=== PATIENT | male | born 1940 | race Caucasian/White ===

== ENCOUNTER 2019-10-10 12:56 | Outpatient (RCR) | payer MEDICARE, SELFPAY ==
[2019-10-14 19:41] LABS: PSA, Free <0.01 ng/mL; PSA, Total <0.1 ng/mL (<=4.0)
== END 2020-01-08 23:59 | disposition home or self-care (01) ==
LOC: ANHLAB 12:56
PROVIDERS: PCP Internal Medicine; Visit Provider Internal Medicine
DX: Z12.5 Encounter for screening for malignant neoplasm of prostate (principal)
CPT/HCPCS: 36415; 84153; 84154; G0103

== ENCOUNTER 2019-12-31 13:22 | Outpatient (CLI) | payer MEDICARE, SELFPAY ==
--- NOTE | ~2019-12-31 | XR_ITS ---
XR hip BI 2V w AP pelvis DATE: 12/31/2019 13:57 INDICATION: Low back pain, bilateral hip pain, greater on the right TECHNIQUE: AP pelvis, bilateral hip AP and lateral views COMPARISON: None FINDINGS: Status post posterior and interbody spinal fusion at L4-S1. There is moderately severe degenerative disc disease at L3-4. There is moderately severe bilateral hip osteoarthritis. No pelvic fracture or bone destruction. The pubic symphysis and and sacroiliac joints are intact. IMPRESSION: Status post L4-S1 surgical fusion Moderately severe bilateral hip osteoarthritis Reviewed, dictated and finalized at location B. AL DEVELOPER
== END 2019-12-31 13:23 | disposition home or self-care (01) ==
LOC: ANHIMG 13:24
PROVIDERS: PCP Internal Medicine; Visit Provider Internal Medicine
DX: M16.0 Bilateral primary osteoarthritis of hip (principal); M25.551 Pain in right hip; Z98.1 Arthrodesis status
CPT/HCPCS: 73521

== ENCOUNTER 2020-06-16 14:33 | Outpatient (CLI) | payer MEDICARE, SELFPAY ==
[2020-06-16 15:10] LABS: Hemoglobin A1C 5.1 % (<5.7)
[2020-06-16 15:15] LABS: Alanine Aminotransferase 28 U/L (4-50); Albumin Level 4.3 g/dL (3.5-5.1); Alkaline Phosphatase 62 U/L (38-126); Aspartate Amino Transferase 34 U/L (17-59); Basophils Percent Auto 0.5 % (0.2-1.2); Bilirubin,Total 0.4 mg/dL (0.2-1.3); Blood Urea Nitrogen 10 mg/dL (9-20); Calcium 9.4 mg/dL (8.4-10.2); Carbon Dioxide 29 mmol/L (22-30); Chloride 99 mmol/L (98-107); Cholesterol 189 mg/dL (0-200); Eosinophils Absolute Auto 0.2 K/mm3 (0-0.3); Eosinophils Percent Auto 2.4 % (0-4.4); Estimated Glomerular Filt Rate > 60; Glucose 92 mg/dL (75-110); HDL Direct 84 mg/dL; Hematocrit 43.7 % (42.0-52.0); Hemoglobin 14.6 g/dL (14.0-18.0); Immature Granulocyte Absolute 0.02 K/mm3 (0.00-0.031); Immature Granulocyte Percent A 0.3 % (0-0.5); Lymphocytes Percent Auto 17.3 % (18.3-44.2); Mean Corpuscular HGB Conc 33.4 g/dl (32-36); Mean Corpuscular Hemoglobin 31.5 pg (26-34); Mean Corpuscular Volume 94.2 fl (80-100); Monocytes Absolute Auto 0.6 K/mm3 (0.1-0.6); Monocytes Percent Auto 9.3 % (2.6-8.5); Neutrophils Absolute Auto 4.5 K/mm3 (1.3-6.7); Neutrophils Percent Auto 70.2 % (45.5-73.1); Platelet Count Result 249 k/mm3 (150-375); Potassium 4.1 mmol/L (3.4-5.0); Red Blood Count 4.64 M/mm3 (4.6-6.20); Red Cell Distribution Width 13.2 % (11.5-14.5); Sodium 133 mmol/L (137-145); Triglycerides 97 mg/dL (<150); White Blood Count 6.4 K/mm3 (4.5-10.0)
[2020-06-16 15:26] LABS: LDL Cholesterol Direct 85 mg/dL
[2020-06-16 15:53] LABS: Vitamin D 25 Hydroxy 38.3 ng/mL
[2020-06-16 16:24] LABS: Folic Acid > 20.0 ng/mL (2.76->20); Vitamin B12 > 1000.0 pg/mL (239-931)
== END 2020-06-16 14:34 | disposition home or self-care (01) ==
LOC: ANHLAB 14:40
PROVIDERS: PCP Internal Medicine; Visit Provider Internal Medicine
DX: E78.2 Mixed hyperlipidemia (principal); I10 Essential (primary) hypertension; Z79.899 Other long term (current) drug therapy; E55.9 Vitamin D deficiency, unspecified
CPT/HCPCS: 36415; 80053; 80061; 82306; 82607; 82746; 83036; 84443; 85025

== ENCOUNTER 2022-02-21 13:44 | Outpatient (CLI) | payer MEDICARE, SELFPAY ==
[2022-02-21 14:08] LABS: Basophils Percent Auto 0.6 % (0.2-1.2); Eosinophils Absolute Auto 0.4 K/mm3 (0-0.3); Eosinophils Percent Auto 5.6 % (0-4.4); Hematocrit 43.9 % (42.0-52.0); Hemoglobin 14.3 g/dL (14.0-18.0); Immature Granulocyte Absolute 0.03 K/mm3 (0.00-0.031); Immature Granulocyte Percent A 0.4 % (0-0.5); Lymphocytes Absolute Auto 1.48 K/mm3 (0.9-3.2); Lymphocytes Percent Auto 21.7 % (18.3-44.2); Mean Corpuscular HGB Conc 32.6 g/dl (32-36); Mean Corpuscular Hemoglobin 32.3 pg (26-34); Mean Corpuscular Volume 99.1 fl (80-100); Mean Platelet Volume 9.8 fl (7.4-10.4); Monocytes Absolute Auto 0.8 K/mm3 (0.1-0.6); Monocytes Percent Auto 11.3 % (2.6-8.5); Neutrophils Absolute Auto 4.1 K/mm3 (1.3-6.7); Neutrophils Percent Auto 60.4 % (45.5-73.1); Platelet Count Result 239 k/mm3 (150-375); Red Blood Count 4.43 M/mm3 (4.6-6.20); Red Cell Distribution Width 13.3 % (11.5-14.5); White Blood Count 6.8 K/mm3 (4.5-10.0)
[2022-02-21 14:26] LABS: Alanine Aminotransferase 27 U/L (4-50); Albumin Level 4.5 g/dL (3.5-5.1); Alkaline Phosphatase 58 U/L (38-126); Anion Gap 6 mmol/L (8-16); Aspartate Amino Transferase 36 U/L (17-59); Bilirubin,Total 0.5 mg/dL (0.2-1.3); Blood Urea Nitrogen 11 mg/dL (9-20); Calcium 9.3 mg/dL (8.4-10.2); Carbon Dioxide 30 mmol/L (22-30); Chloride 99 mmol/L (98-107); Cholesterol 208 mg/dL (0-200); Estimated Glomerular Filt Rate > 60; Glucose 83 mg/dL (65-110); HDL Direct 91 mg/dL; Potassium 4.1 mmol/L (3.4-5.0); Sodium 135 mmol/L (137-145); Triglycerides 94 mg/dL (<150)
[2022-02-21 14:38] LABS: LDL Cholesterol Direct 80 mg/dL
[2022-02-21 14:57] LABS: Prostate Specific Antigen < 0.1 ng/mL (< OR = 4.0)
== END 2022-02-21 13:45 | disposition home or self-care (01) ==
LOC: ANHLAB 13:49
PROVIDERS: PCP Internal Medicine; Visit Provider Internal Medicine
DX: I47.1 Supraventricular tachycardia (principal); I49.5 Sick sinus syndrome; E78.2 Mixed hyperlipidemia; Z12.5 Encounter for screening for malignant neoplasm of prostate
CPT/HCPCS: 36415; 80053; 80061; 84153; 84443; 85025; G0103

== ENCOUNTER 2022-03-18 13:25 | Outpatient (CLI) | payer MEDICARE, SELFPAY ==
--- NOTE | 2022-03-18 13:40 | ECHO_ITS ---
Patient Info Name: Dinesh Saha Age: 81 years : 1940 Gender: Male Ht: 68 in Wt: 167 lbs BSA: 1.92 m2 HR: 78 bpm BP: 151 / 78 mmHg Heart Rhythm: Paced Technical Quality: Good Exam Date: 03/18/2022 1:58 PM Exam Location: [facility] Patient Status: Outpatient Admit Date: 03/18/2022 Staff Ordering Physician: Rodrick Rincon MD Process Engineering Technician: Dory Tellez RDCS Attending Provider: Rodrick Rincon MD Exam Type: CA echo doppler color flow Study Info Indications - nonrheumatic aortic valve stenosis Complete two-dimensional, color flow and Doppler transthoracic echocardiogram is performed. Summary 1. Complete two-dimensional, color flow and Doppler transthoracic echocardiogram is performed. 2. Left ventricular chamber dimension is normal. 3. Left ventricular systolic function is normal, estimated at 65-70%. 4. There is mildly increased left ventricular wall thickness. 5. Left ventricular septal wall motion is abnormal with septal motion related to pacing. 6. Right atrial chamber dimension is moderately enlarged. 7. There is no aortic valve stenosis. 8. There is trace mitral valve regurgitation. 9. There is trace tricuspid valve regurgitation. 10. No pulmonary hypertension, estimated pulmonary arterial systolic pressure is 33 mmHg. 11. Atrial septal aneurysmal motion without cough or Doppler evidence of right to left shunt. Consider bubble study for further evaluation. Left Ventricle Left ventricular chamber dimension is normal. Left ventricular systolic function is normal, estimated at 65-70%. There is mildly increased left ventricular wall thickness. Left ventricular septal wall motion is abnormal with septal motion related to pacing. The left ventricular diastolic function is grade I diastolic dysfunction. Right Ventricle Right ventricular chamber dimension is normal. Right ventricular systolic function is normal. Linear artifact in right ventricle suggestive of catheter(s), pacemaker lead(s), or ICD lead(s). Left Atria Left atrial chamber dimension is mildly enlarged. Right Atria Right atrial chamber dimension is moderately enlarged. Linear artifact in the right atrium suggestive of catheter(s), pacemaker lead(s), or ICD lead(s). Atrial Septum Atrial septal aneurysmal motion without cough or Doppler evidence of right to left shunt. Consider bubble study for further evaluation. Aortic Valve The aortic valve is not well visualized. There is mild aortic valve sclerosis. There is no aortic valve stenosis. There is trace aortic valve regurgitation. Pulmonic Valve The pulmonic valve is not well visualized. Mitral Valve The mitral valve has normal leaflets. There is trace mitral valve regurgitation. The mitral valve annulus is mildly calcified. Tricuspid Valve The tricuspid valve leaflets are normal. There is trace tricuspid valve regurgitation. No pulmonary hypertension, estimated pulmonary arterial systolic pressure is 33 mmHg. Pericardium/Pleural The pericardium appears normal. There is trivial pericardial effusion. Inferior Vena Cava Normal inferior vena cava with >50% collapse upon inspiration consistent with normal right atrial pressure, 10 mmHg. Aorta The aortic root size at the sinus of Valsalva is normal. There is moderate aortic atherosclerosis. Left Ventricular Outflow Tract Name Value Norm
== END 2022-03-18 13:26 | disposition home or self-care (01) ==
LOC: ANHCARD 13:28
PROVIDERS: PCP Internal Medicine; Visit Provider Internal Medicine
DX: I35.0 Nonrheumatic aortic (valve) stenosis (principal)
CPT/HCPCS: 93306

== ENCOUNTER 2022-05-02 12:21 | Outpatient (CLI) | payer MEDICARE, SELFPAY ==
[2022-05-02 13:28] LABS: Appearance Urine Clear (Clear); Bilirubin Urine Negative (Negative); Color Urine Yellow (Yellow); Glucose Urine UA Negative (Negative); Ketones Urine Trace mg/dL (Negative); Leukocyte Esterase Ur Negative LEU/UL (Negative); Nitrate Urine Negative (Negative); Protein Urine 1+ mg/dL (Negative); Urobilinogen Urine 0.2 mg/dL (<2.0); pH Urine 6.5 (5.0-9.0)
[2022-05-02 13:30] LABS: Add Urine Microscopic? YES; Blood Urine Trace-Intact (Negative)
[2022-05-02 13:38] LABS: Mucus Urine Rare /lpf; WBC Urine 0-3 /hpf
== END 2022-05-02 12:22 | disposition home or self-care (01) ==
LOC: ANHLAB 12:21
PROVIDERS: PCP Internal Medicine; Visit Provider Internal Medicine
DX: R82.4 Acetonuria (principal)
CPT/HCPCS: 81001

== ENCOUNTER 2022-07-25 01:41 | Day surgery (SDC) | payer MEDICARE, SELFPAY ==
[2022-07-08 14:59] VITALS: BMI 25.5
[2022-07-25 11:17] VITALS: BP 141/70; PULSE 84; RESP 20; TEMP 36.6; O2SAT 97; BMI 25.4
--- NOTE | 2022-07-25 11:18 | WPDANESEPPF ---
Anes - Initial Pre Proc Eval Procedure: Operation Date: 07/25/22 12:30 Proposed Procedures p Colonoscopy - Olvin Gloria MD Date/Time: 07/25/22 11:19 Surgeon: Olvin Gloria MD Pre Op Diagnosis: crohn's disease Patient Data Age: 82 Gender: M Height: 1.73 m Weight: 76.3 kg Allergies Allergy/AdvReac Type Severity Reaction Status Date / Time No Known Drug Allergies Allergy Unknown Unknown Verified 07/25/22 11:14 Home Medications Medication Instructions Recorded Confirmed Type aspirin 81 mg tablet,delayed 81 mg PO DAILY 12/17/19 07/08/22 History release (Adult Low Dose Aspirin) hcdqfcn-jfkdadfcxvsru-vgtutvny 250 1 tablet PO Q4-6H PRN pain #1 12/17/19 07/08/22 Rx mg-250 mg-65 mg tablet (Excedrin tablet Extra Strength) biotin 5,000 mcg disintegrating 10,000 mcg PO DAILY 12/17/19 07/08/22 History tablet coenzyme Q10 100 mg capsule (Co 100 mg PO DAILY 12/17/19 07/08/22 History Q-10) cyanocobalamin (vitamin B-12) 5,000 mcg PO DAILY 12/17/19 07/08/22 History 5,000 mcg capsule docusate sodium 100 mg capsule 100 mg PO DAILY 12/17/19 07/08/22 History (Colace) folic acid 400 mcg tablet 0.4 mg PO DAILY 12/17/19 07/08/22 History oufsgmuw-ctjriidezsa-jkct 1 applic topical DAILY 12/17/19 07/08/22 History tree-stearyl alcohol topical cream (Cetaphil Hand topical cream) hydrochlorothiazide 25 mg tablet 25 mg PO DAILY 12/17/19 07/08/22 History lisinopril 40 mg tablet 40 mg PO DAILY 12/17/19 07/08/22 History melatonin 5 mg capsule 5 mg PO DAILY 12/17/19 07/08/22 History multivitamin 1 tablet PO DAILY 12/17/19 07/08/22 History omega-3 fatty acids 1,000 mg 1,000 mg PO DAILY 12/17/19 07/08/22 History capsule (Fish Oil Concentrate) ondansetron HCl 4 mg tablet 4 mg PO Q8H 12/17/19 07/08/22 History turmeric root extract 500 mg 500 mg PO DAILY 12/17/19 07/08/22 History capsule ustekinumab 90 mg/mL subcutaneous 90 mg subcut ONCE 12/17/19 07/08/22 History syringe (Stelara) amlodipine 5 mg tablet 5 mg PO DAILY #90 tabs 12/20/21 07/08/22 Rx ustekinumab 90 mg/mL subcutaneous 90 mg subcut .every 8 weeks #1 mL 06/23/22 07/08/22 Rx syringe (Stelara) clonazepam 0.5 mg tablet (Klonopin) 0.5 mg PO QHS PRN insomnia 07/08/22 07/08/22 History atorvastatin 20 mg tablet See Rx Instructions .Route 07/18/22 07/25/22 Rx .COMPLEX #90 tabs Patient hx anesthesia problems: none Family hx anesthesia problems: none Results Review: All pre-operative results and documents have been reviewed as part of the pre-operative evaluation. [facility] Past Medical History Medical History (Updated 07/25/22 @ 11:22 by Yash Khanna MD) Crohn's disease without complication Essential hypertension History of prostate cancer Hx of adenomatous colonic polyps Mixed hyperlipidemia Nasal polyps Nicotine dependence, other tobacco product, in remission Osteoarthritis of spine with radiculopathy, lumbar region Overweight (BMI 25.0-29.9) Pacemaker Prostate cancer Surgical History Surgical History History of cataract extraction History of prostatectomy History of spinal fusion Family History Family History Mother Family history of Alzheimer's disease Father Family history of osteoporosis Malignant neoplasm of prostate Social History Social History Years smoked: 40 Smoking status: Former smoker Tobacco type: pipe Smoking end date: 12/05/18 Alcohol intake: current Substance use: never Substance use type: does not use Living arrangements: with family Anes - Eval Final PreProcedure Day of Procedure 07/25/22 11:19 Patient weight: overweight Heart: regular rate and rhythm Lungs: clear to auscultation and normal air movement Airway: Mallampati scale class II Neurological: alert and oriented Last oral intake: >/= 8 hours ASA cl
[2022-07-25] MEDS: LACTATED RINGERS 1,000 ML 150 ML IV CONT (11:26)
--- NOTE | 2022-07-25 11:50 | PM.HPGS ---
History of Present Illness History of Present Illness Consent: Risks, benefits, and alternatives have been discussed and questions answered. Patient agrees to proceed with procedure. Chief complaint: crohn's disease Narrative: Dinesh Saha is a 82 year old male who has a 20+ year history of Crohn's disease. He has been on Stelara for the last 5 years with very good results. He has had no blood in his stools does not have abdominal pain or diarrhea. Review of Systems Review of Systems: All systems reviewed & are unremarkable except as noted in HPI and below PMFSH Past Medical History Medical History Crohn's disease without complication Essential hypertension History of prostate cancer Hx of adenomatous colonic polyps Mixed hyperlipidemia Nasal polyps Nicotine dependence, other tobacco product, in remission Osteoarthritis of spine with radiculopathy, lumbar region Overweight (BMI 25.0-29.9) Pacemaker Prostate cancer Surgical History Surgical History History of cataract extraction History of prostatectomy History of spinal fusion Family History Family History Mother Family history of Alzheimer's disease Father Family history of osteoporosis Malignant neoplasm of prostate Social History Social History Years smoked: 40 Smoking status: Former smoker Tobacco type: pipe Smoking end date: 12/05/18 Alcohol intake: current Substance use: never Substance use type: does not use Living arrangements: with family Meds Home Medications and Allergies Home Medications Medication Instructions Recorded Confirmed Type aspirin 81 mg tablet,delayed 81 mg PO DAILY 12/17/19 07/08/22 History release (Adult Low Dose Aspirin) yugbkoa-dkcewcjflnjsw-yhotnybk 250 1 tablet PO Q4-6H PRN pain #1 12/17/19 07/08/22 Rx mg-250 mg-65 mg tablet (Excedrin tablet Extra Strength) biotin 5,000 mcg disintegrating 10,000 mcg PO DAILY 12/17/19 07/08/22 History tablet coenzyme Q10 100 mg capsule (Co 100 mg PO DAILY 12/17/19 07/08/22 History Q-10) cyanocobalamin (vitamin B-12) 5,000 mcg PO DAILY 12/17/19 07/08/22 History 5,000 mcg capsule docusate sodium 100 mg capsule 100 mg PO DAILY 12/17/19 07/08/22 History (Colace) folic acid 400 mcg tablet 0.4 mg PO DAILY 12/17/19 07/08/22 History kixujenf-qwectwvjxok-jstl 1 applic topical DAILY 12/17/19 07/08/22 History tree-stearyl alcohol topical cream (Cetaphil Hand topical cream) hydrochlorothiazide 25 mg tablet 25 mg PO DAILY 12/17/19 07/08/22 History lisinopril 40 mg tablet 40 mg PO DAILY 12/17/19 07/08/22 History melatonin 5 mg capsule 5 mg PO DAILY 12/17/19 07/08/22 History multivitamin 1 tablet PO DAILY 12/17/19 07/08/22 History omega-3 fatty acids 1,000 mg 1,000 mg PO DAILY 12/17/19 07/08/22 History capsule (Fish Oil Concentrate) ondansetron HCl 4 mg tablet 4 mg PO Q8H 12/17/19 07/08/22 History turmeric root extract 500 mg 500 mg PO DAILY 12/17/19 07/08/22 History capsule ustekinumab 90 mg/mL subcutaneous 90 mg subcut ONCE 12/17/19 07/08/22 History syringe (Stelara) amlodipine 5 mg tablet 5 mg PO DAILY #90 tabs 12/20/21 07/08/22 Rx ustekinumab 90 mg/mL subcutaneous 90 mg subcut .every 8 weeks #1 mL 06/23/22 07/08/22 Rx syringe (Stelara) clonazepam 0.5 mg tablet (Klonopin) 0.5 mg PO QHS PRN insomnia 07/08/22 07/08/22 History atorvastatin 20 mg tablet See Rx Instructions .Route 07/18/22 07/25/22 Rx .COMPLEX #90 tabs Allergies Allergy/AdvReac Type Severity Reaction Status Date / Time No Known Drug Allergies Allergy Unknown Unknown Verified 07/25/22 11:14 Vital Signs Vital Signs - 24 hr 07/25/22 11:17 Temperature 36.6 C Pulse Rate 84 Respiratory Rate 20 Blood Pressure 141/70 H Pulse Oximetry 97 Oxygen Del
[2022-07-25 12:35] VITALS: BP 88/52; PULSE 60; RESP 15; O2SAT 95
[2022-07-25 12:45] VITALS: BP 88/52; PULSE 60; RESP 14; O2SAT 94
[2022-07-25 12:55] VITALS: BP 119/74; PULSE 60; RESP 18; O2SAT 97
== END 2022-07-25 13:20 | disposition home or self-care (01) ==
PROVIDERS: PCP Internal Medicine; Visit Provider Internal Medicine Gastroenterology
PROC: 0DJD8ZZ Inspection of Lower Intestinal Tract, Via Natural or Artificial Opening Endoscopic (ICD-10-PCS; CPT 45378; principal; 2022-07-25 12:30)
DX: K50.90 Crohn's disease, unspecified, without complications (principal); K63.5 Polyp of colon; I10 Essential (primary) hypertension; Z85.46 Personal history of malignant neoplasm of prostate; E78.2 Mixed hyperlipidemia; M19.90 Unspecified osteoarthritis, unspecified site; Z95.0 Presence of cardiac pacemaker; Z87.891 Personal history of nicotine dependence; Z79.82 Long term (current) use of aspirin
CPT/HCPCS: 45380; 88305; J2704; J7120

== ENCOUNTER 2022-12-19 08:58 | Outpatient (CLI) | payer MEDICARE, SELFPAY ==
[2022-12-19 10:22] LABS: Alanine Aminotransferase 31 U/L (6-50); Albumin Level 4.1 g/dL (3.5-5.1); Alkaline Phosphatase 68 U/L (38-126); Anion Gap 5 mmol/L (8-16); Aspartate Amino Transferase 37 U/L (17-59); Bilirubin,Total 0.5 mg/dL (0.2-1.3); Blood Urea Nitrogen 10 mg/dL (9-20); Calcium 9.2 mg/dL (8.4-10.2); Carbon Dioxide 31 mmol/L (22-30); Chloride 98 mmol/L (98-107); Cholesterol 189 mg/dL (0-200); Estimated Glomerular Filt Rate > 60; Glucose 88 mg/dL (65-110); HDL Direct 85 mg/dL; Potassium 3.7 mmol/L (3.4-5.0); Sodium 134 mmol/L (137-145); Triglycerides 106 mg/dL (<150)
[2022-12-19 10:35] LABS: LDL Cholesterol Direct 68 mg/dL
[2022-12-19 10:59] LABS: Prostate Specific Antigen < 0.1 ng/mL (< OR = 4.0)
[2022-12-19 11:02] LABS: Vitamin D 25 Hydroxy 33.1 ng/mL
[2022-12-24 12:01] LABS: Testosterone Total 664 ng/dL (250-1100)
== END 2022-12-19 08:59 | disposition home or self-care (01) ==
PROVIDERS: PCP Internal Medicine; Visit Provider Nurse Practitioner
DX: E78.5 Hyperlipidemia, unspecified (principal); Z85.46 Personal history of malignant neoplasm of prostate; Z12.5 Encounter for screening for malignant neoplasm of prostate; E55.9 Vitamin D deficiency, unspecified
CPT/HCPCS: 36415; 80053; 80061; 82306; 84153; 84403

== ENCOUNTER 2023-04-09 20:17 | Emergency (ER) | payer MEDICARE, SELFPAY ==
[2023-04-09 20:22] VITALS: BP 148/72; PULSE 101; RESP 18; TEMP 36.8; O2SAT 98
--- NOTE | 2023-04-09 20:36 | PC.NURSE ---
Patient states he was cutting salad greens when he cut his left index finger.
[2023-04-09] MEDS: CELLULOSE OXIDIZED 2 x 14 INCH 1 PKT XX (21:08)
--- NOTE | 2023-04-09 21:28 | ED.WOUNDLAC ---
HPI - Wound/Laceration General Chief Complaint: Wound/Laceration Stated Complaint: left index lac Time Seen by Provider: 04/09/23 20:40 History of Present Illness HPI narrative: This is an 82-year-old male, with past history of Crohn's, prostate cancer, who presents to the emergency department after cutting his left index finger. The patient states he was slicing vegetables, when he cut a small piece of his left dorsal index finger. He denies significant pain but states it has been bleeding for approximately 3 hours. He denies lightheadedness or chest pain Related Data Home Medications Medication Instructions Recorded Confirmed biotin 5,000 mcg disintegrating 10,000 mcg PO DAILY 12/17/19 10/17/22 tablet coenzyme Q10 100 mg capsule (Co 100 mg PO DAILY 12/17/19 10/17/22 Q-10) cyanocobalamin (vitamin B-12) 5,000 mcg PO DAILY 12/17/19 10/17/22 5,000 mcg capsule folic acid 400 mcg tablet 0.4 mg PO DAILY 12/17/19 10/17/22 qbkzvupm-smcrhntwudj-kcqj 1 applic topical DAILY 12/17/19 10/17/22 tree-stearyl alcohol topical cream (Cetaphil Hand topical cream) hydrochlorothiazide 25 mg tablet 25 mg PO DAILY 12/17/19 10/17/22 lisinopril 40 mg tablet 40 mg PO DAILY 12/17/19 10/17/22 melatonin 5 mg capsule 5 mg PO DAILY 12/17/19 10/17/22 multivitamin 1 tablet PO DAILY 12/17/19 10/17/22 omega-3 fatty acids 1,000 mg 1,000 mg PO DAILY 12/17/19 10/17/22 capsule (Fish Oil Concentrate) turmeric root extract 500 mg 500 mg PO DAILY 12/17/19 10/17/22 capsule clonazepam 0.5 mg tablet (Klonopin) 0.5 mg PO QHS PRN insomnia 07/08/22 10/17/22 docusate sodium 100 mg capsule 100 mg PO DAILY PRN 10/14/22 10/17/22 (Colace) ondansetron HCl 4 mg tablet 4 mg PO Q8H PRN 10/14/22 10/17/22 Allergies Allergy/AdvReac Type Severity Reaction Status Date / Time No Known Drug Allergies Allergy Unknown Unknown Verified 04/09/23 20:25 Review of Systems Review of Systems: CONSTITUTIONAL: Denies fever, chills, or sweats. CARDIOVASCULAR: Denies chest pain, palpitations, or edema. RESPIRATORY: Denies cough or dyspnea. GASTROINTESTINAL: Denies abdominal pain, nausea, vomiting, or diarrhea. MUSCULOSKELETAL: Denies back pain, joint pain, or myalgia. PSYCHIATRIC: Denies anxiety or depression. PMFSH Past Medical History Medical History Crohn's disease without complication Essential hypertension History of prostate cancer Hx of adenomatous colonic polyps Mixed hyperlipidemia Nasal polyps Nicotine dependence, other tobacco product, in remission Osteoarthritis of spine with radiculopathy, lumbar region Overweight (BMI 25.0-29.9) Pacemaker Prostate cancer Surgical History Surgical History History of cataract extraction History of prostatectomy History of spinal fusion Family History Family History Mother Family history of Alzheimer's disease Father Family history of osteoporosis Malignant neoplasm of prostate Social History Social History Years smoked: 40 Smoking status: Former smoker Tobacco type: pipe Smoking end date: 12/05/18 Alcohol intake: current Alcohol use details: rarely Substance use: never Substance use type: does not use Lack of Transportation: No Lack of Food: Never True Current Housing: I Have Housing Concerned About Future Housing: No Difficulty Paying Gas/Electric Bills: No Difficulty Paying for Meds: No Currently Unemployed: No Education: Master's Degree or Higher Difficulty w/ Childcare or Family Care: No Living arrangements: with family Exam Narrative: GENERAL: Well-developed, well-nourished, and in no acute distress. HEAD: Normocephalic, atraumatic. EYES: PERRLA and EOMI. CHEST: Clear to auscultation. No respiratory distress. No wheezes rales
[2023-04-09 21:58] VITALS: BP 128/98; PULSE 92; RESP 16; O2SAT 100
== END 2023-04-09 21:59 | disposition home or self-care (01) ==
PROVIDERS: Emergency Provider Preventive Medicine Aerospace Medicine; PCP Family Medicine
DX: S61.211A Laceration without foreign body of left index finger without damage to nail, initial encounter (principal); K50.90 Crohn's disease, unspecified, without complications; I10 Essential (primary) hypertension; E78.2 Mixed hyperlipidemia; E66.3 Overweight; Z68.23 Body mass index [BMI] 23.0-23.9, adult; Z95.0 Presence of cardiac pacemaker; Z85.46 Personal history of malignant neoplasm of prostate; Z86.010 Personal history of colon polyps; Z87.891 Personal history of nicotine dependence; W26.9XXA Contact with unspecified sharp object(s), initial encounter; Y93.G1 Activity, food preparation and clean up
CPT/HCPCS: 99282

== ENCOUNTER 2023-06-08 10:38 | Outpatient (CLI) | payer MEDICARE, SELFPAY ==
--- NOTE | ~2023-06-08 | XR_ITS ---
EXAMINATION: XR lg joint inject/asp add, XR lg joint inject/asp w image DATE: 06/08/2023 11:52 (accession [id number]), 06/08/2023 11:56 (accession [id number]) INDICATION: Primary osteoarthritis of the bilateral hips presenting with hip pain TECHNIQUE: A time-out was performed to verify the patient's name, date of , and procedure to b e performed. The procedure including the risks, benefits, and alternatives was discussed with the pat ient. Risks discussed included bleeding and infection. The patient understood the risks and agreed to proceed. The skin overlying the right hip joint was prepped and draped in usual sterile fashion. A nesthetic was administered with 1% lidocaine subcutaneously. A 22 G needle was advanced under fluoro scopic guidance into the joint. Injection of 1 mL of Omnipaque 240 confirmed intra-articular positio n of the needle. Subsequently, injectate consisting of 5 mL of a 4:1 mixture of 1% lidocaine: 80 mg/ mL Depo-Medrol for a total dosage of 80 mg Depo-Medrol was instilled. Washout of contrast was seen co nfirming intra-articular administration. The needle was removed and the entry site was cleaned and dr essed. Attention was then turned to the left hip. The skin overlying the right hip joint was prepped and kimmie ped in usual sterile fashion. Anesthetic was administered with 1% lidocaine subcutaneously. A 22 G needle was advanced under fluoroscopic guidance into the joint. Injection of 1 mL of Omnipaque 240 c onfirmed intra-articular position of the needle. Subsequently, injectate consisting of 5 mL of a 4:1 mixture of 1% lidocaine: 80 mg/mL Depo-Medrol for a total dosage of 80 mg Depo-Medrol was instilled. Washout of contrast was seen confirming intra-articular administration. The needle was removed and t he entry site was cleaned and dressed. There were no immediate complications. Fluoroscopy exposure ti me for the combined procedures was 0.1 minutes. Total DAP was 0.503 Gycm^2. The total number of image s was 3. FINDINGS: Real-time fluoroscopy demonstrates the needle in first the right hip joint and subsequently the second needle in the left hip joint. Patient's pain prior to procedure:02/03. Patient's pain fol lowing the procedure: 02/03. IMPRESSION: 1. Successful right hip joint injection of local anesthetic and steroid with no change in the patien t's presenting pain. 2. Successful left hip joint injection of local anesthetic and steroid with no change in the patient 's presenting pain. Reviewed, dictated and finalized at location A. IMPRESSION: 1. Successful right hip joint injection of local anesthetic and steroid with n o change in the patient's presenting pain. 2. Successful left hip joint injection of local anesthetic and steroid with no change in the patient's presenting pain.
== END 2023-06-08 10:39 | disposition home or self-care (01) ==
PROVIDERS: PCP Family Medicine; Visit Provider Orthopaedic Surgery
DX: M16.0 Bilateral primary osteoarthritis of hip (principal)
CPT/HCPCS: 20610; 77002; J1040; Q9966

== ENCOUNTER 2023-08-08 13:33 | Outpatient (CLI) | payer MEDICARE, SELFPAY ==
--- NOTE | ~2023-08-08 | XR_ITS ---
EXAMINATION: XR chest 2V 08/08/2023 13:54 INDICATION: Pacemaker. PROCEDURE: PA and lateral views of the chest COMPARISON: 10/03/2027 FINDINGS: The lungs are clear. The cardiomediastinal silhouette is within normal limits. There are no pleural effusions. There is no pneumothorax suspected. Pacemaker leads are in expected position. IMPRESSION: 1: NO ACUTE CARDIOPULMONARY DISEASE. Reviewed, dictated and finalized at location L.
== END 2023-08-08 13:34 | disposition home or self-care (01) ==
PROVIDERS: PCP Family Medicine; Visit Provider Internal Medicine Cardiovascular Disease
DX: I44.2 Atrioventricular block, complete (principal); T82.110D Breakdown (mechanical) of cardiac electrode, subsequent encounter; Z95.0 Presence of cardiac pacemaker
CPT/HCPCS: 71046

== ENCOUNTER 2023-09-03 02:43 | Emergency (ER) | payer MEDICARE, SELFPAY ==
[2023-09-03] VITALS (9 sets, daily range): BP systolic 137–186; BP diastolic 74–86; PULSE 69–79; RESP 18–20; TEMP 36.8; O2SAT 97–100
--- NOTE | ~2023-09-03 | XR_ITS ---
XR chest 1V portable DATE: 09/03/2023 03:14 INDICATION: Hypertension TECHNIQUE: Portable AP chest on 09/03/2023 and 0312 hours COMPARISON: 08/08/2020 3:00 PM lateral chest FINDINGS: . Left transvenous pacemaker device with leads overlying right atrium and right ventricle. No pulmonary infiltrate or consolidation, pleural effusion or pulmonary vascular congestion or pneumo thorax. There is aortic tortuosity. No hilar or mediastinal enlargement. Degenerative spurring of the thoracic spine. IMPRESSION: Left dual-lead pacemaker No active pulmonary disease Reviewed, dictated and finalized at location A.
--- NOTE | 2023-09-03 02:53 | ECG_ITS ---
Measurements Intervals [place] Rate: 68 P: 5 KS: 251 QRS: -82 QRSD: 200 T: 95 QT: 481 QTc: 515 Interpretive Statements ATRIAL SENSE ELECTRONIC VENTRICULAR PACEMAKER ATYPICAL ECG COMPARED TO ECG 01/14/2019 13:12:35 NO SIGNIFICANT CHANGES Electronically Signed On 09-03-2023 8:51:48 CDT by Ruperto Trejo M.D.
[2023-09-03] MEDS: hydrALAZINE HCL 20 MG/ML VIAL 10 MG IV PUSH (03:01)
[2023-09-03 03:11] LABS: Basophils Percent Auto 0.5 % (0.2-1.2); Eosinophils Absolute Auto 0.2 K/mm3 (0-0.3); Eosinophils Percent Auto 2.8 % (0-4.4); Hematocrit 41.6 % (42.0-52.0); Hemoglobin 13.7 g/dL (14.0-18.0); Immature Granulocyte Absolute 0.03 K/mm3 (0.00-0.031); Immature Granulocyte Percent A 0.5 % (0-0.5); Lymphocytes Absolute Auto 1.31 K/mm3 (0.9-3.2); Lymphocytes Percent Auto 20.7 % (18.3-44.2); Mean Corpuscular HGB Conc 32.9 g/dl (32-36); Mean Corpuscular Hemoglobin 32.1 pg (26-34); Mean Corpuscular Volume 97.4 fl (80-100); Mean Platelet Volume 9.6 fl (7.4-10.4); Monocytes Absolute Auto 0.6 K/mm3 (0.1-0.6); Monocytes Percent Auto 9.8 % (2.6-8.5); Neutrophils Absolute Auto 4.2 K/mm3 (1.3-6.7); Neutrophils Percent Auto 65.7 % (45.5-73.1); Platelet Count Result 268 k/mm3 (150-375); Red Blood Count 4.27 M/mm3 (4.6-6.20); Red Cell Distribution Width 12.9 % (11.5-14.5); White Blood Count 6.3 K/mm3 (4.5-10.0)
[2023-09-03 03:34] LABS: Alanine Aminotransferase 32 U/L (6-50); Albumin Level 4.6 g/dL (3.5-5.1); Alkaline Phosphatase 62 U/L (38-126); Anion Gap 4 mmol/L (8-16); Aspartate Amino Transferase 46 U/L (17-59); Bilirubin,Total 0.6 mg/dL (0.2-1.3); Blood Urea Nitrogen 15 mg/dL (9-20); Calcium 9.3 mg/dL (8.4-10.2); Carbon Dioxide 30 mmol/L (22-30); Chloride 96 mmol/L (98-107); Estimated CRCL calculation 71 ml/min; Estimated Glomerular Filt Rate > 60; Glucose 106 mg/dL (65-110); Potassium 3.9 mmol/L (3.4-5.0); Sodium 130 mmol/L (137-145)
--- NOTE | 2023-09-03 03:43 | ED.GENADULT ---
HPI - General Adult General Chief complaint: Recheck/Abnormal Lab/Rx Stated complaint: high blood pressure Time Seen by Provider: 09/03/23 02:47 History of Present Illness HPI narrative: 83-year-old male presented emergency department for evaluation of hypertension. Patient does take multiple medications for his blood pressure. Patient states he checked his blood pressure at home and it was running 200 systolic. Patient states this does cause him to have some increased anxiety. Patient did take clonazepam for his anxiety. Upon arrival to the ED patient's blood pressure is improved. Patient denied any associated chest pain or shortness of breath. Related Data Home Medications Medication Instructions Recorded Confirmed biotin 5,000 mcg disintegrating 10,000 mcg PO DAILY 12/17/19 06/29/23 tablet coenzyme Q10 100 mg capsule (Co 100 mg PO DAILY 12/17/19 06/29/23 Q-10) cyanocobalamin (vitamin B-12) 5,000 mcg PO DAILY 12/17/19 06/29/23 5,000 mcg capsule folic acid 400 mcg tablet 0.4 mg PO DAILY 12/17/19 06/29/23 xrskrnrj-tkvotcuuylb-ewpn 1 applic topical DAILY 12/17/19 06/29/23 tree-stearyl alcohol topical cream (Cetaphil Hand topical cream) hydrochlorothiazide 25 mg tablet 25 mg PO DAILY 12/17/19 06/29/23 lisinopril 40 mg tablet 40 mg PO DAILY 12/17/19 06/29/23 melatonin 5 mg capsule 5 mg PO DAILY 12/17/19 06/29/23 multivitamin 1 tablet PO DAILY 12/17/19 06/29/23 omega-3 fatty acids 1,000 mg 1,000 mg PO DAILY 12/17/19 06/29/23 capsule (Fish Oil Concentrate) turmeric root extract 500 mg 500 mg PO DAILY 12/17/19 06/29/23 capsule docusate sodium 100 mg capsule 100 mg PO DAILY PRN 10/14/22 06/29/23 (Colace) ondansetron HCl 4 mg tablet 4 mg PO Q8H PRN 10/14/22 06/29/23 Allergies Allergy/AdvReac Type Severity Reaction Status Date / Time No Known Drug Allergies Allergy Unknown Unknown Verified 09/03/23 02:54 Review of Systems Review of Systems: All systems reviewed & are unremarkable except as noted in HPI and below PMFSH Past Medical History Medical History Crohn's disease without complication Essential hypertension History of prostate cancer Hx of adenomatous colonic polyps Mixed hyperlipidemia Nasal polyps Nicotine dependence, other tobacco product, in remission Osteoarthritis of spine with radiculopathy, lumbar region Overweight (BMI 25.0-29.9) Pacemaker Prostate cancer Surgical History Surgical History History of cataract extraction History of prostatectomy History of spinal fusion Family History Family History Mother Family history of Alzheimer's disease Father Family history of osteoporosis Malignant neoplasm of prostate Social History Social History Years smoked: 40 Smoking status: Former smoker Tobacco type: pipe Smoking end date: 12/05/18 Alcohol intake: current Alcohol use details: rarely Substance use: never Substance use type: does not use Lack of Transportation: No Lack of Food: Never True Current Housing: I Have Housing Concerned About Future Housing: No Difficulty Paying Gas/Electric Bills: No Difficulty Paying for Meds: No Currently Unemployed: No Education: Master's Degree or Higher Difficulty w/ Childcare or Family Care: No Living arrangements: with family Exam Narrative: APPEARANCE: Well appearing, no pain, no distress, well-nourished. HEAD: normocephalic, atraumatic. EYES: PERRLA/EOMI, conjunctivae clear. NOSE: Normal no drainage NECK: Supple. No adenopathy, no masses. RESPIRATORY: Airway patent, respirations nonlabored. Clear to auscultation bilaterally, no rales, rhonchi, wheezing. CARDIOVASCULAR: Regular rate and rhythm without murmurs rubs or gallops. ABDOMINAL: Soft, nontender, nondistended, normal bowel sounds MUSCU
== END 2023-09-03 04:28 | disposition home or self-care (01) ==
PROVIDERS: Emergency Provider Emergency Medicine; PCP Family Medicine
DX: I10 Essential (primary) hypertension (principal); E78.2 Mixed hyperlipidemia; K50.90 Crohn's disease, unspecified, without complications; M47.816 Spondylosis without myelopathy or radiculopathy, lumbar region; Z95.0 Presence of cardiac pacemaker; Z85.46 Personal history of malignant neoplasm of prostate; Z87.891 Personal history of nicotine dependence; Z98.49 Cataract extraction status, unspecified eye; Z90.79 Acquired absence of other genital organ(s); Z98.1 Arthrodesis status
CPT/HCPCS: 36415; 71045; 80053; 85025; 93005; 96374; 99284; J0360

== ENCOUNTER 2023-10-20 13:29 | Outpatient (CLI) | payer MEDICARE, SELFPAY ==
[2023-10-20 14:11] LABS: Anion Gap 9 mmol/L (8-16); Blood Urea Nitrogen 17 mg/dL (9-20); Calcium 9.8 mg/dL (8.4-10.2); Carbon Dioxide 28 mmol/L (22-30); Chloride 97 mmol/L (98-107); Estimated Glomerular Filt Rate > 60; Glucose 76 mg/dL (65-110); Potassium 3.9 mmol/L (3.4-5.0); Sodium 134 mmol/L (137-145)
[2023-10-20 14:42] LABS: Iron 118 ug/dL (49-181)
[2023-10-20 14:55] LABS: Percent Iron Saturation 35 % (20-50)
== END 2023-10-20 13:30 | disposition home or self-care (01) ==
PROVIDERS: PCP Family Medicine; Visit Provider Family Medicine
DX: D64.9 Anemia, unspecified (principal); E87.1 Hypo-osmolality and hyponatremia
CPT/HCPCS: 36415; 80048; 82728; 83540; 83550

== ENCOUNTER 2023-12-14 14:53 | Outpatient (CLI) | payer MEDICARE, SELFPAY ==
[2023-12-14 15:35] LABS: Basophils Percent Auto 0.3 % (0.2-1.2); Eosinophils Absolute Auto 0.2 K/mm3 (0-0.3); Eosinophils Percent Auto 3.6 % (0-4.4); Hematocrit 44.2 % (42.0-52.0); Hemoglobin 14.3 g/dL (14.0-18.0); Immature Granulocyte Absolute 0.03 K/mm3 (0.00-0.031); Immature Granulocyte Percent A 0.5 % (0-0.5); Lymphocytes Absolute Auto 1.14 K/mm3 (0.9-3.2); Lymphocytes Percent Auto 17.7 % (18.3-44.2); Mean Corpuscular HGB Conc 32.4 g/dl (32-36); Mean Corpuscular Hemoglobin 31.9 pg (26-34); Mean Corpuscular Volume 98.7 fl (80-100); Mean Platelet Volume 9.8 fl (7.4-10.4); Monocytes Absolute Auto 0.6 K/mm3 (0.1-0.6); Monocytes Percent Auto 9.2 % (2.6-8.5); Neutrophils Absolute Auto 4.4 K/mm3 (1.3-6.7); Neutrophils Percent Auto 68.7 % (45.5-73.1); Platelet Count Result 282 k/mm3 (150-375); Red Blood Count 4.48 M/mm3 (4.6-6.20); Red Cell Distribution Width 13.2 % (11.5-14.5); White Blood Count 6.4 K/mm3 (4.5-10.0)
[2023-12-14 16:03] LABS: Alanine Aminotransferase 29 U/L (6-50); Albumin Level 4.6 g/dL (3.5-5.1); Alkaline Phosphatase 78 U/L (38-126); Anion Gap 6 mmol/L (8-16); Aspartate Amino Transferase 43 U/L (17-59); Bilirubin,Total 0.7 mg/dL (0.2-1.3); Blood Urea Nitrogen 12 mg/dL (9-20); Calcium 9.8 mg/dL (8.4-10.2); Carbon Dioxide 32 mmol/L (22-30); Chloride 97 mmol/L (98-107); Estimated Glomerular Filt Rate > 60; Glucose 96 mg/dL (65-110); Potassium 3.8 mmol/L (3.4-5.0); Sodium 135 mmol/L (137-145)
[2023-12-14 16:54] LABS: Vitamin D 25 Hydroxy 35.9 ng/mL
[2023-12-14 16:56] LABS: Prostate Specific Antigen < 0.1 ng/mL (< OR = 4.0)
[2023-12-18 15:29] LABS: Testosterone Free 34.8 pg/mL (30.0-135.0); Testosterone Total 396 ng/dL (250-1100)
== END 2023-12-14 14:54 | disposition home or self-care (01) ==
PROVIDERS: PCP Family Medicine; Visit Provider Family Medicine
DX: C44.91 Basal cell carcinoma of skin, unspecified (principal); E55.9 Vitamin D deficiency, unspecified; E78.2 Mixed hyperlipidemia; G47.00 Insomnia, unspecified; I10 Essential (primary) hypertension; I35.0 Nonrheumatic aortic (valve) stenosis; I49.5 Sick sinus syndrome; K50.90 Crohn's disease, unspecified, without complications; Z85.828 Personal history of other malignant neoplasm of skin; Z95.0 Presence of cardiac pacemaker; Z12.5 Encounter for screening for malignant neoplasm of prostate; Z85.46 Personal history of malignant neoplasm of prostate
CPT/HCPCS: 36415; 80053; 82306; 84153; 84402; 84403; 85025; G0103

== ENCOUNTER 2024-04-25 16:08 | Outpatient (CLI) | payer MEDICARE, SELFPAY ==
[2024-04-25 16:57] LABS: Hematocrit 41.4 % (42.0-52.0); Hemoglobin 13.8 g/dL (14.0-18.0); Mean Corpuscular HGB Conc 33.3 g/dl (32-36); Mean Corpuscular Volume 96.1 fl (80-100); Mean Platelet Volume 9.7 fl (7.4-10.4); Platelet Count Result 266 k/mm3 (150-375); Red Blood Count 4.31 M/mm3 (4.6-6.20); Red Cell Distribution Width 13.2 % (11.5-14.5); White Blood Count 6.8 K/mm3 (4.5-10.0)
[2024-04-25 19:05] LABS: Vitamin D 25 Hydroxy 34.4 ng/mL
[2024-04-25 19:16] LABS: Alanine Aminotransferase 31 U/L (6-50); Albumin Level 4.4 g/dL (3.5-5.1); Alkaline Phosphatase 64 U/L (38-126); Anion Gap 5 mmol/L (4-12); Aspartate Amino Transferase 45 U/L (17-59); Bilirubin,Total 0.5 mg/dL (0.2-1.3); Blood Urea Nitrogen 12 mg/dL (9-20); Calcium 9.8 mg/dL (8.4-10.2); Carbon Dioxide 30 mmol/L (22-30); Chloride 98 mmol/L (98-107); Cholesterol 188 mg/dL (0-200); Estimated Glomerular Filt Rate > 60; Glucose 91 mg/dL (65-110); HDL Direct 96 mg/dL; Sodium 133 mmol/L (137-145); Triglycerides 70 mg/dL (<150)
[2024-04-25 19:28] LABS: LDL Cholesterol Direct 75 mg/dL
[2024-04-25 19:50] LABS: Prostate Specific Antigen < 0.1 ng/mL (< OR = 4.0)
== END 2024-04-25 16:09 | disposition home or self-care (01) ==
PROVIDERS: PCP Family Medicine; Visit Provider Family Medicine
DX: Z12.5 Encounter for screening for malignant neoplasm of prostate (principal); D64.9 Anemia, unspecified; E55.9 Vitamin D deficiency, unspecified; E66.3 Overweight; E78.2 Mixed hyperlipidemia; E87.1 Hypo-osmolality and hyponatremia; G47.00 Insomnia, unspecified; G47.9 Sleep disorder, unspecified; I10 Essential (primary) hypertension; K50.90 Crohn's disease, unspecified, without complications; Z98.890 Other specified postprocedural states; Z95.0 Presence of cardiac pacemaker; Z85.46 Personal history of malignant neoplasm of prostate; Z87.19 Personal history of other diseases of the digestive system
CPT/HCPCS: 36415; 80053; 80061; 82306; 84153; 85027; G0103

== ENCOUNTER 2024-08-16 11:14 | Emergency (ER) | payer MEDICARE, SELFPAY ==
--- NOTE | ~2024-08-16 | CT_ITS ---
EXAMINATION: CT shoulder LT wo con DATE: 08/16/2024 15:46 INDICATION: Left rotator cuff tear. TECHNIQUE: Computed tomography (CT) of the left shoulder was performed without intravenous contrast. Automated exposure control and iterative reconstruction technique were employed. The dose-length prod uct was 461.22 mGy-cm. COMPARISON: None FINDINGS: There is a comminuted avulsion fracture of greater tuberosity of proximal humerus with 3.2 cm medial displacement of the main avulsed fracture fragment. There is mild osteoarthritis of glenohu meral joint and severe osteoarthritis of acromioclavicular joint. IMPRESSION: 1. Avulsion fracture of greater tuberosity of proximal humerus. 2. Polyarticular osteoarthritis. Reviewed, dictated and finalized at location A.
[2024-08-16 11:36] VITALS: BP 102/62; PULSE 75; RESP 16; TEMP 36.3; O2SAT 95
[2024-08-16 14:22] VITALS: BP 132/59; PULSE 69; RESP 18; TEMP 36.2; O2SAT 94
[2024-08-16] MEDS: ACETAMINOPHEN 500 MG TABLET 1000 MG PO (15:47)
--- NOTE | 2024-08-16 15:49 | PC.NURSE ---
patient given education on sling positioning by multiple staff members.
--- NOTE | 2024-08-16 16:14 | ED.UPPEXIN ---
HPI - Extremity Injury (Upper) General Chief Complaint: Extremity Injury, Upper Stated Complaint: left shoulder pain Time Seen by Provider: 08/16/24 15:23 History of Present Illness HPI narrative: 84-year-old male presented to the emergency department for evaluation of left shoulder pain. Patient states he went to urgent care today for concerns of left shoulder pain that began last week after he had a ground level mechanical fall. He states gradually throughout the week he has been having weakness and pain in left upper extremity. He states he is having difficulty lifting it past 90? and over his head secondary to the pain. 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 Did not think much of it after he fell onto at last week but he was able to get up unassisted and go about his day without difficulty. Denies any headache, vision change, nausea, vomiting, chest pain, shortness a breath, abdominal pain, back pain. He went to Urgent Care today which he got x-ray images that were unremarkable according to him they referred him to get a CT scan and sent him here. He already follows with orthopedic surgeon for various musculoskeletal issues and sciatica. Sees Dr. Joselito Varela outpatient. Takes Tylenol for the pain is not requesting anything additional for analgesia at this time. Related Data Home Medications Medication Instructions Recorded Confirmed biotin 5,000 mcg disintegrating 10,000 mcg PO DAILY 12/17/19 08/08/24 tablet coenzyme Q10 100 mg capsule (Co 100 mg PO DAILY 12/17/19 08/08/24 Q-10) cyanocobalamin (vitamin B-12) 5,000 mcg PO DAILY 12/17/19 08/08/24 5,000 mcg capsule folic acid 400 mcg tablet 0.4 mg PO DAILY 12/17/19 08/08/24 hydrochlorothiazide 25 mg tablet 25 mg PO DAILY 12/17/19 08/08/24 lisinopril 40 mg tablet 40 mg PO DAILY 12/17/19 08/08/24 melatonin 5 mg capsule 5 mg PO DAILY 12/17/19 08/08/24 multivitamin 1 tablet PO DAILY 12/17/19 08/08/24 omega-3 fatty acids 1,000 mg 1,000 mg PO DAILY 12/17/19 08/08/24 capsule (Fish Oil Concentrate) docusate sodium 100 mg capsule 100 mg PO DAILY PRN 10/14/22 08/08/24 (Colace) ondansetron HCl 4 mg tablet 4 mg PO Q8H PRN 10/14/22 08/08/24 [id number] 1 applic topical DAILY PRN 05/08/24 08/08/24 tree-stearyl alcohol topical cream (Cetaphil Hand topical cream) trazodone 50 mg tablet 25 mg PO QHS insomnia 05/08/24 08/08/24 Allergies Allergy/AdvReac Type Severity Reaction Status Date / Time No Known Drug Allergies Allergy Unknown Unknown Verified 08/08/24 09:06 Review of Systems Review of Systems: As reviewed above in HPI [facility] Past Medical History Medical History Crohn's disease without complication Essential hypertension History of prostate cancer Hx of adenomatous colonic polyps Mixed hyperlipidemia Nasal polyps Nicotine dependence, other tobacco product, in remission Osteoarthritis of spine with radiculopathy, lumbar region Overweight (BMI 25.0-29.9) Pacemaker Prostate cancer Spinal stenosis of lumbar region at multiple levels Surgical History Surgical History History of cataract extraction History of prostatectomy History of spinal fusion Family History Family History Mother Family history of Alzheimer's disease Father Family history of osteoporosis Malignant neoplasm of prostate Social History Social History Years smoked: 40 Smoking status: Former smoker Tobacco type: pipe Second hand tobacco smoke exposure: Yes Smoking end date: 12/05/18 Alcohol intake: current Alcohol use details: rarely Substance use: never Substance use type: does not use Do You Feel Safe in your Home?: Yes Lack of Transportation: No Lack of Food: Never True
[2024-08-16 17:40] VITALS: BP 137/82; PULSE 78; RESP 17; TEMP 36.6; O2SAT 98
== END 2024-08-16 17:43 | disposition home or self-care (01) ==
PROVIDERS: Emergency Provider Student in an Organized Health Care Education/Training Program; PCP Family Medicine
DX: S42.252A Displaced fracture of greater tuberosity of left humerus, initial encounter for closed fracture (principal); I10 Essential (primary) hypertension; E78.2 Mixed hyperlipidemia; E66.3 Overweight; Z68.24 Body mass index [BMI] 24.0-24.9, adult; K50.90 Crohn's disease, unspecified, without complications; M47.26 Other spondylosis with radiculopathy, lumbar region; M19.012 Primary osteoarthritis, left shoulder; Z98.1 Arthrodesis status; Z95.0 Presence of cardiac pacemaker; Z85.46 Personal history of malignant neoplasm of prostate; Z86.010 Personal history of colon polyps; Z87.891 Personal history of nicotine dependence; Z90.79 Acquired absence of other genital organ(s); Z98.49 Cataract extraction status, unspecified eye; W18.30XA Fall on same level, unspecified, initial encounter
CPT/HCPCS: 23620; 24500; 73200; 99284; A9270

== ENCOUNTER 2024-08-18 18:57 | Emergency (ER) | payer MEDICARE, SELFPAY ==
[2024-08-18] VITALS (20 sets, daily range): BP systolic 108–142; BP diastolic 57–77; PULSE 73–90; RESP 15–22; TEMP 36.6; O2SAT 95–100
--- NOTE | ~2024-08-18 | CT_ITS ---
CT head without contrast Indication: Near syncope Technique: Serial scans were obtained through the brain without the administration of contrast. Dose reduction technique was used on this scan by utilizing automated exposure control and iterative recon struction technique. The dose-length product (DLP) was 681.00 mGy-cm. Findings: There is no evidence of intracranial hemorrhage, mass lesion, or acute infarct. The ventri cles and subarachnoid spaces are dilated, consistent with mild to moderate atrophy. Low attenuation regions are seen within the periventricular white matter bilaterally, likely representing changes fro m chronic microvascular ischemic disease. There is no evidence of edema, mass effect or midline shif t. The visualized paranasal sinuses and mastoid air cells are clear. Impression: No intracranial hemorrhage, mass, or acute infarct. Atrophy and chronic white matter changes, as above. Reviewed, dictated and finalized at location M. Impression: No intracranial hemorrhage, mass, or acute infarct. Atrophy and chronic white matter changes, as above.
--- NOTE | ~2024-08-18 | XR_ITS ---
XR chest 1V DATE: 08/18/2024 21:43 INDICATION: Near syncope TECHNIQUE: AP chest COMPARISON: 09/03/2023 portable upright AP chest FINDINGS: Left dual-lead pacemaker with leads overlying right atrium and right lateral. Borderline heart size. Aortic unfolding. No hilar or mediastinal enlargement. Relatively sparse lung markings in the upper lungs suggests bullous emphysema. No pulmonary infiltrate or consolidation, pleural effusion or pulmonary vascular congestion or pneumo thorax is detected. 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
--- NOTE | ~2024-08-18 | XR_ITS ---
XR shoulder LT min 2V DATE: 08/18/2024 21:43 INDICATION: Left shoulder injury TECHNIQUE: 3 views COMPARISON: 08/08/2023 PA chest FINDINGS: There is a cortical avulsion fracture of the greater tuberosity which is displaced superior ly, partially overlying the superior aspect of the humeral head. Normal alignment at the acromioclavicular and glenohumeral joints. IMPRESSION: Superiorly displaced cortical avulsion fracture of the greater tuberosity Reviewed, dictated and finalized at location A. IMPRESSION: Superiorly displaced cortical avulsion fracture of the greater tube rosity
[2024-08-18] MEDS: SODIUM CHLORIDE 0.9% IV 1,000 ML 999 ML IV CONT (21:29)
--- NOTE | 2024-08-18 21:34 | PC.NURSE ---
Left arm splint removed per ZAYNAB Zarate. Splint removed, patient tolerated well. Patient has bruising noted to inner left upper arm.
--- NOTE | 2024-08-18 21:36 | PC.NURSE ---
Patient taken to imaging at this time via stretcher.
[2024-08-18 21:38] LABS: Basophils Percent Auto 0.2 % (0.2-1.2); Eosinophils Percent Auto 0.3 % (0-4.4); Hematocrit 39.9 % (42.0-52.0); Immature Granulocyte Absolute 0.09 K/mm3 (0.00-0.031); Immature Granulocyte Percent A 0.7 % (0-0.5); Lymphocytes Absolute Auto 0.51 K/mm3 (0.9-3.2); Mean Corpuscular HGB Conc 35.1 g/dl (32-36); Mean Corpuscular Hemoglobin 32.9 pg (26-34); Mean Corpuscular Volume 93.9 fl (80-100); Monocytes Absolute Auto 0.9 K/mm3 (0.1-0.6); Monocytes Percent Auto 7.3 % (2.6-8.5); Neutrophils Absolute Auto 11.3 K/mm3 (1.3-6.7); Neutrophils Percent Auto 87.5 % (45.5-73.1); Platelet Count Result 339 k/mm3 (150-375); Red Blood Count 4.25 M/mm3 (4.6-6.20); Red Cell Distribution Width 13.1 % (11.5-14.5); White Blood Count 12.9 K/mm3 (4.5-10.0)
[2024-08-18 21:45] LABS: Add Urine Microscopic? YES; Appearance Urine Clear (Clear); Bacteria Urine None Seen /hpf; Bilirubin Urine Negative (Negative); Blood Urine 1+ (Negative); Color Urine Yellow (Yellow); Glucose Urine UA Negative (Negative); Ketones Urine Trace mg/dL (Negative); Leukocyte Esterase Ur Negative LEU/UL (Negative); Nitrate Urine Negative (Negative); Protein Urine 1+ mg/dL (Negative); RBC Urine 21-50 /hpf (0-2); Specific Grav Ur 1.021 (1.001-1.035); Squamous Epithelial Cell Urine None Seen /hpf (Few); WBC Urine 0-5 /hpf (0-3); pH Urine 6.5 (5.0-9.0)
[2024-08-18 21:49] LABS: Lactic Acid Reflex 0.9 mmol/L (0.7-2.0)
[2024-08-18 21:49] LABS: Partial Thromboplastin Time 33.8 Seconds (22.3-36.8); Prothrombin Time 13.2 Seconds (11.1-14.7)
[2024-08-18 21:52] LABS: Alanine Aminotransferase 43 U/L (6-50); Albumin Level 4.1 g/dL (3.5-5.1); Alkaline Phosphatase 87 U/L (38-126); Anion Gap 9 mmol/L (4-12); Aspartate Amino Transferase 60 U/L (17-59); Bilirubin,Total 0.6 mg/dL (0.2-1.3); Blood Urea Nitrogen 17 mg/dL (9-20); Calcium 9.2 mg/dL (8.4-10.2); Carbon Dioxide 24 mmol/L (22-30); Chloride 91 mmol/L (98-107); Estimated CRCL calculation 72 ml/min; Estimated Glomerular Filt Rate > 60; Glucose 115 mg/dL (65-110); Potassium 4.2 mmol/L (3.4-5.0); Sodium 124 mmol/L (137-145)
[2024-08-18 22:03] LABS: Troponin I 0.018 ng/mL (0.000-0.034)
[2024-08-18 22:11] LABS: Procalcitonin 0.1 ng/mL
[2024-08-19] VITALS (8 sets, daily range): BP systolic 162–175; BP diastolic 79–83; PULSE 74–85; RESP 17–28; O2SAT 96–100
--- NOTE | 2024-08-19 00:44 | ED.GENADULT ---
HPI - General Adult General Chief complaint: Fall Stated complaint: FALL, UNSTEADY GAIT Time Seen by Provider: 08/18/24 20:56 History of Present Illness HPI narrative: Patient is a 84-year-old gentleman presents emergency department with chief complaint of multiple falls. Patient states that he has been having some problems with his gait and balance of the patient did have a fall recently and had a chip in his humerus patient was placed in a splint at that time the patient reports today he had a ground level fall reports that he has been scheduled to follow-up with orthopedics Related Data Home Medications Medication Instructions Recorded Confirmed biotin 5,000 mcg disintegrating 10,000 mcg PO DAILY 12/17/19 08/08/24 tablet coenzyme Q10 100 mg capsule (Co 100 mg PO DAILY 12/17/19 08/08/24 Q-10) cyanocobalamin (vitamin B-12) 5,000 mcg PO DAILY 12/17/19 08/08/24 5,000 mcg capsule folic acid 400 mcg tablet 0.4 mg PO DAILY 12/17/19 08/08/24 hydrochlorothiazide 25 mg tablet 25 mg PO DAILY 12/17/19 08/08/24 lisinopril 40 mg tablet 40 mg PO DAILY 12/17/19 08/08/24 melatonin 5 mg capsule 5 mg PO DAILY 12/17/19 08/08/24 multivitamin 1 tablet PO DAILY 12/17/19 08/08/24 omega-3 fatty acids 1,000 mg 1,000 mg PO DAILY 12/17/19 08/08/24 capsule (Fish Oil Concentrate) docusate sodium 100 mg capsule 100 mg PO DAILY PRN 10/14/22 08/08/24 (Colace) ondansetron HCl 4 mg tablet 4 mg PO Q8H PRN 10/14/22 08/08/24 sejwejws-qosgoiomogg-[id number] 1 applic topical DAILY PRN 05/08/24 08/08/24 tree-stearyl alcohol topical cream (Cetaphil Hand topical cream) trazodone 50 mg tablet 25 mg PO QHS insomnia 05/08/24 08/08/24 Allergies Allergy/AdvReac Type Severity Reaction Status Date / Time No Known Drug Allergies Allergy Unknown Unknown Verified 08/18/24 19:45 Review of Systems Review of Systems: A 10 system review of systems was completed on the patient and is negative except for what is stated in the HPI. Nursing and ancillary documentation was reviewed. REPLACED BY [facility] Past Medical History Medical History Crohn's disease without complication Essential hypertension History of prostate cancer Hx of adenomatous colonic polyps Mixed hyperlipidemia Nasal polyps Nicotine dependence, other tobacco product, in remission Osteoarthritis of spine with radiculopathy, lumbar region Overweight (BMI 25.0-29.9) Pacemaker Prostate cancer Spinal stenosis of lumbar region at multiple levels Surgical History Surgical History History of cataract extraction History of prostatectomy History of spinal fusion Family History Family History Mother Family history of Alzheimer's disease Father Family history of osteoporosis Malignant neoplasm of prostate Social History Social History Years smoked: 40 Smoking status: Former smoker Tobacco type: pipe Second hand tobacco smoke exposure: Yes Smoking end date: 12/05/18 Alcohol intake: current Alcohol use details: rarely Substance use: never Substance use type: does not use Do You Feel Safe in your Home?: Yes Lack of Transportation: No Lack of Food: Never True Current Housing: I Have Housing Concerned About Future Housing: No Difficulty Paying Gas/Electric Bills: No Difficulty Paying for Meds: No Currently Unemployed: No Education: Master's Degree or Higher Difficulty w/ Childcare or Family Care: No Living arrangements: with family Occupation/Education: retired 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 HEAD: Normocephalic, atraumatic. EYES: PERRLA and EOMI.
--- NOTE | 2024-08-19 01:18 | PC.NURSE ---
Patient ambulated in hallway with stand by assist. ERP notified.
== END 2024-08-19 02:23 | disposition home or self-care (01) ==
PROVIDERS: Emergency Provider Emergency Medicine; PCP Family Medicine
DX: S09.90XA Unspecified injury of head, initial encounter (principal); S50.311A Abrasion of right elbow, initial encounter; W18.30XA Fall on same level, unspecified, initial encounter; Z91.81 History of falling; R29.6 Repeated falls; I10 Essential (primary) hypertension; K50.90 Crohn's disease, unspecified, without complications; E78.2 Mixed hyperlipidemia; Z85.46 Personal history of malignant neoplasm of prostate; Z98.1 Arthrodesis status; Z95.0 Presence of cardiac pacemaker; Z87.891 Personal history of nicotine dependence
CPT/HCPCS: 36415; 70450; 71045; 73030; 80053; 81001; 83605; 83735; 84145; 84484; 85025; 85610; 85730; 96360; 99284; J7030

== ENCOUNTER 2024-08-20 03:47 | Emergency (ER) | payer MEDICARE, SELFPAY ==
--- NOTE | ~2024-08-20 | CT_ITS ---
CT head without contrast Indication: Status post fall COMPARISON: 08/18/2024 Technique: Serial scans were obtained through the brain without the administration of contrast. Dose reduction technique was used on this scan by utilizing automated exposure control and iterative recon struction technique. The dose-length product (DLP) was 605.33 mGy-cm. Findings: There is no evidence of intracranial hemorrhage, mass lesion, or acute infarct. The ventri cles and subarachnoid spaces are dilated, consistent with mild to moderate atrophy. Low attenuation regions are seen within the periventricular white matter bilaterally, likely representing changes fro m chronic microvascular ischemic disease. There is no evidence of edema, mass effect or midline shif t. The visualized paranasal sinuses and mastoid air cells are clear. Impression: No intracranial hemorrhage, mass, or acute infarct. Atrophy and chronic white matter changes, as above. Reviewed, dictated and finalized at location . Impression: No intracranial hemorrhage, mass, or acute infarct. Atrophy and chronic white matter changes, as above.
--- NOTE | ~2024-08-20 | CT_ITS ---
Noncontrast CT scan of the cervical spine Technique: Multiple contiguous axial [address] images of the cervical spine were obtained and rec onstructed in 2D sagittal and coronal planes on the acquisition scanner. Dose reduction technique was used on this scan by utilizing automated exposure control, adjustment of the mA and/or kV according to patient size. The dose-length product (DLP) was 418.56 mGy-cm. Clinical History: Pain Findings: No acute fracture. There is 3 mm anterolisthesis of C3 over C4. There is severe degenerativ e disc narrowing at C3-C4, C4-C5, C5-C6, and C6-C7. There is moderate degenerative disc narrowing at C2-C3. There is extensive facet arthropathy throughout the cervical spine, with fusion of the right C 4-C5 facet joint. There is right neural foraminal narrowing at C2-C3. There is bilateral neural adenike inal narrowing at C3-C4 with disc ossify complex resulting in probable moderate canal stenosis. There is bilateral neural foraminal narrowing at C4-C5, probable mild canal stenosis. There is bilateral n eural foraminal narrowing at C5-C6 with probable mild canal stenosis. There is bilateral neural adenike inal narrowing at C6-C7. No prevertebral soft tissue swelling. Impression: No acute fracture. 3 mm anterolisthesis of C3 over C4. Severe degenerative spondylosis, as above. Reviewed, dictated and finalized at [facility]. Impression: No acute fracture. 3 mm anterolisthesis of C3 over C4. Severe degenerative spondylosis, as above.
[2024-08-20 03:47] VITALS: BP 134/76; PULSE 78; RESP 15; TEMP 36.6; O2SAT 94
--- NOTE | 2024-08-20 03:52 | ECG_ITS ---
Test Date: 2024-08-20 03:52:16 Measurements Intervals [place] Rate: 78 P: 33 SD: 258 QRS: 265 QRSD: 193 T: 85 QT: 464 QTc: 529 Interpretive Statements ATRIAL SENSE- ELECTRONIC VENTRICULAR PACEMAKER BASELINE ARTIFACT- I, V1 NO FURTHER INTERPRETATION IS POSSIBLE ATYPICAL ECG No previous ECG available for comparison Electronically Signed On 08-20-2024 06:30:21 CDT by Valentín Kelly D.O.
--- NOTE | 2024-08-20 05:24 | ED.DIZZY ---
HPI - Dizziness General Chief Complaint: Dizziness Stated Complaint: dizzy and fall History of Present Illness HPI Narrative: Patient is an 84-year-old female who presents to the emergency department this morning status post a ground level fall that occurred at home. Patient was recently seen at our facility for a fall and patient admits that he has been falling more recently. Today, patient states that he was getting some ice at of the freezer and accidentally dropped the ice my ground and believes he slipped on the ice. Patient states that he felt dizzy after the fall and admits that he did hit his head. Patient states that the dizziness has resolved. Denies any loss of consciousness and denies any blood thinner use. Patient denies any focal weakness, numbness and tingling. Admits to mild pain at the back of his head, denies any neck pain. Patient states that he does have a walker and a cane at but does not use them even though he understands that he should. Patient denies any chest pain or shortness of breath, any fevers or chills at home and denies any urinary symptoms including dysuria or hematuria. Denies any additional symptoms or concerns at this time. Related Data Home Medications Medication Instructions Recorded Confirmed biotin 5,000 mcg disintegrating 10,000 mcg PO DAILY 12/17/19 08/08/24 tablet coenzyme Q10 100 mg capsule (Co 100 mg PO DAILY 12/17/19 08/08/24 Q-10) cyanocobalamin (vitamin B-12) 5,000 mcg PO DAILY 12/17/19 08/08/24 5,000 mcg capsule folic acid 400 mcg tablet 0.4 mg PO DAILY 12/17/19 08/08/24 hydrochlorothiazide 25 mg tablet 25 mg PO DAILY 12/17/19 08/08/24 lisinopril 40 mg tablet 40 mg PO DAILY 12/17/19 08/08/24 melatonin 5 mg capsule 5 mg PO DAILY 12/17/19 08/08/24 multivitamin 1 tablet PO DAILY 12/17/19 08/08/24 omega-3 fatty acids 1,000 mg 1,000 mg PO DAILY 12/17/19 08/08/24 capsule (Fish Oil Concentrate) docusate sodium 100 mg capsule 100 mg PO DAILY PRN 10/14/22 08/08/24 (Colace) ondansetron HCl 4 mg tablet 4 mg PO Q8H PRN 10/14/22 08/08/24 [id number]-nojnyqedgzi-ilas 1 applic topical DAILY PRN 05/08/24 08/08/24 tree-stearyl alcohol topical cream (Cetaphil Hand topical cream) trazodone 50 mg tablet 25 mg PO QHS insomnia 05/08/24 08/08/24 Allergies Allergy/AdvReac Type Severity Reaction Status Date / Time No Known Drug Allergies Allergy Unknown Unknown Verified 08/20/24 03:55 Review of Systems Review of Systems: All systems are reviewed and are negative unless stated otherwise in the HPI. [facility] Past Medical History Medical History Crohn's disease without complication Essential hypertension History of prostate cancer Hx of adenomatous colonic polyps Mixed hyperlipidemia Nasal polyps Nicotine dependence, other tobacco product, in remission Osteoarthritis of spine with radiculopathy, lumbar region Overweight (BMI 25.0-29.9) Pacemaker Prostate cancer Spinal stenosis of lumbar region at multiple levels Surgical History Surgical History History of cataract extraction History of prostatectomy History of spinal fusion Family History Family History Mother Family history of Alzheimer's disease Father Family history of osteoporosis Malignant neoplasm of prostate Social History Social History Years smoked: 40 Smoking status: Former smoker Tobacco type: pipe Second hand tobacco smoke exposure: Yes Smoking end date: 12/05/18 Alcohol intake: current Alcohol use details: rarely Substance use: never Substance use type: does not use Do You Feel Safe in your Home?: Yes Lack of Transportation: No Lack of Food: Never True Current Housing: I Have Housing Concerned About Future Housing: No Difficulty Paying Gas/Electric B
--- NOTE | 2024-08-20 06:14 | PC.NURSE ---
Attempted to call of patient at [phone] without answer. Message left.
[2024-08-20 06:46] VITALS: BP 122/64; PULSE 79; RESP 15; O2SAT 100
== END 2024-08-20 06:47 ==
PROVIDERS: Emergency Provider Emergency Medicine; PCP Family Medicine
DX: S09.90XA Unspecified injury of head, initial encounter (principal); K50.90 Crohn's disease, unspecified, without complications; I10 Essential (primary) hypertension; Z86.010 Personal history of colon polyps; E78.2 Mixed hyperlipidemia; E66.3 Overweight; Z68.26 Body mass index [BMI] 26.0-26.9, adult; Z98.1 Arthrodesis status; M47.26 Other spondylosis with radiculopathy, lumbar region; Z95.0 Presence of cardiac pacemaker; Z85.46 Personal history of malignant neoplasm of prostate; Z87.891 Personal history of nicotine dependence; Z90.79 Acquired absence of other genital organ(s); Z98.49 Cataract extraction status, unspecified eye; M47.812 Spondylosis without myelopathy or radiculopathy, cervical region; W01.0XXA Fall on same level from slipping, tripping and stumbling without subsequent striking against object, initial encounter
CPT/HCPCS: 70450; 72125; 93005; 99284

== ENCOUNTER 2024-08-25 03:54 | Inpatient (IN) | payer MEDICARE, SELFPAY ==
[2024-08-25] VITALS (15 sets, daily range): BP systolic 106–154; BP diastolic 54–90; PULSE 58–82; RESP 14–18; TEMP 36.4–36.6; O2SAT 94–100; BMI 24.0
--- NOTE | ~2024-08-25 | XR_ITS ---
XR chest 2V 08/25/2024 08:32 Indication: Weakness Procedure: AP and lateral views of the chest Comparison: Comparison to multiple prior studies sequentially, with oldest reviewed study dated 05/2017. Findings: Heart size normal. Pacemaker leads are stable. No focal air space disease, pulmonary edema, pleural effusion or suspected pneumothorax. Impression: 1: No acute cardiopulmonary disease. Reviewed, dictated and finalized at location B. Impression: 1: No acute cardiopulmonary disease.
--- NOTE | ~2024-08-25 | US_ITS ---
EXAMINATION: US venous doppler [facility] DATE: 09/01/2024 09:06 INDICATION: Lower limb swelling TECHNIQUE: Grayscale ultrasound images without and with compression and Doppler ultrasound images of the bilateral lower extremity veins were obtained. COMPARISON: None. FINDINGS: The visualized portions of right common femoral vein, profunda (deep) femoral vein, femoral vein, pop liteal vein, posterior tibial veins, peroneal veins, gastrocnemius vein and greater saphenous vein ou tflow are patent. The visualized portions of left common femoral vein, profunda femoral vein, femoral vein, popliteal v ein, posterior tibial veins, peroneal veins, gastrocnemius vein and greater saphenous vein outflow ar e patent. IMPRESSION: 1. No deep venous thrombosis in either lower limb. Reviewed, dictated and finalized at location A.
--- NOTE | 2024-08-25 08:06 | ECG_ITS ---
Test Date: 2024-08-25 08:12:50 Measurements Intervals [place] Rate: 60 P: 115 RI: 248 QRS: -78 QRSD: 201 T: 95 QT: 503 QTc: 503 Interpretive Statements ELECTRONIC ATRIAL PACEMAKER ELECTRONIC VENTRICULAR PACEMAKER BASELINE ARTIFACT- I, II, AVR NO FURTHER INTERPRETATION IS POSSIBLE ATYPICAL ECG Compared to ECG 08/20/2024 03:52:16 No significant changes Electronically Signed On 08-25-2024 09:15:21 CDT by Valentín Kelly D.O.
--- NOTE | 2024-08-25 08:08 | ED.GENADULT ---
HPI - General Adult General Chief complaint: Weakness Stated complaint: leg weakness, hx of this, possible fall if stands Time Seen by Provider: 08/25/24 08:08 Source: patient History of Present Illness HPI narrative: 84 YEARS OLD WHITE MALE CAME TO THE ED BY AMBULANCE BECAUSE UNABLE TO STAND UP AND WALK IN THE LAST FEW DAYS BECAUSE OF WEAKNESS OF THE LEGS. WORSE WITH ANY ACTIVITIES, BETTER WITH FEELING DOWN STILL, HE DENIES ANY HEADACHE, CHEST PAIN, SHORTNESS OF BREATH, ABDOMINAL PAIN, BACK PAIN, OR FOCAL NEURAL DEFICIT. PATIENT REPORT HAVING SIMILAR SYMPTOMS INTERMITTENTLY FOR THE LAST FEW MONTHS. PATIENT LIVES WITH FAMILY. Related Data Home Medications Medication Instructions Recorded Confirmed biotin 5,000 mcg disintegrating 10,000 mcg PO DAILY 12/17/19 08/08/24 tablet coenzyme Q10 100 mg capsule (Co 100 mg PO DAILY 12/17/19 08/08/24 Q-10) cyanocobalamin (vitamin B-12) 5,000 mcg PO DAILY 12/17/19 08/08/24 5,000 mcg capsule folic acid 400 mcg tablet 0.4 mg PO DAILY 12/17/19 08/08/24 hydrochlorothiazide 25 mg tablet 25 mg PO DAILY 12/17/19 08/08/24 lisinopril 40 mg tablet 40 mg PO DAILY 12/17/19 08/08/24 melatonin 5 mg capsule 5 mg PO DAILY 12/17/19 08/08/24 multivitamin 1 tablet PO DAILY 12/17/19 08/08/24 omega-3 fatty acids 1,000 mg 1,000 mg PO DAILY 12/17/19 08/08/24 capsule (Fish Oil Concentrate) docusate sodium 100 mg capsule 100 mg PO DAILY PRN 10/14/22 08/08/24 (Colace) ondansetron HCl 4 mg tablet 4 mg PO Q8H PRN 10/14/22 08/08/24 [id number]-vlkggeswrzf-shao 1 applic topical DAILY PRN 05/08/24 08/08/24 tree-stearyl alcohol topical cream (Cetaphil Hand topical cream) trazodone 50 mg tablet 25 mg PO QHS insomnia 05/08/24 08/08/24 Allergies Allergy/AdvReac Type Severity Reaction Status Date / Time No Known Drug Allergies Allergy Unknown Unknown Verified 08/20/24 03:55 Review of Systems Review of Systems: All systems reviewed & are unremarkable except as noted in HPI and below PMFSH Past Medical History Medical History Crohn's disease without complication Essential hypertension History of prostate cancer Hx of adenomatous colonic polyps Mixed hyperlipidemia Nasal polyps Nicotine dependence, other tobacco product, in remission Osteoarthritis of spine with radiculopathy, lumbar region Overweight (BMI 25.0-29.9) Pacemaker Prostate cancer Spinal stenosis of lumbar region at multiple levels Surgical History Surgical History History of cataract extraction History of prostatectomy History of spinal fusion Family History Family History Mother Family history of Alzheimer's disease Father Family history of osteoporosis Malignant neoplasm of prostate Social History Social History Years smoked: 40 Smoking status: Former smoker Tobacco type: pipe Second hand tobacco smoke exposure: Yes Smoking end date: 12/05/18 Alcohol intake: current Alcohol use details: rarely Substance use: never Substance use type: does not use Do You Feel Safe in your Home?: Yes Lack of Transportation: No Lack of Food: Never True Current Housing: I Have Housing Concerned About Future Housing: No Difficulty Paying Gas/Electric Bills: No Difficulty Paying for Meds: No Currently Unemployed: No Education: Master's Degree or Higher Difficulty w/ Childcare or Family Care: No Living arrangements: with family Occupation/Education: retired 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
[2024-08-25 08:29] LABS: Basophils Percent Auto 0.2 % (0.2-1.2); Eosinophils Absolute Auto 0.1 K/mm3 (0-0.3); Eosinophils Percent Auto 1.5 % (0-4.4); Hematocrit 40.6 % (42.0-52.0); Hemoglobin 14.1 g/dL (14.0-18.0); Immature Granulocyte Absolute 0.03 K/mm3 (0.00-0.031); Immature Granulocyte Percent A 0.3 % (0-0.5); Lymphocytes Absolute Auto 1.12 K/mm3 (0.9-3.2); Lymphocytes Percent Auto 12.1 % (18.3-44.2); Mean Corpuscular HGB Conc 34.7 g/dl (32-36); Mean Corpuscular Hemoglobin 32.3 pg (26-34); Mean Corpuscular Volume 93.1 fl (80-100); Mean Platelet Volume 8.8 fl (7.4-10.4); Monocytes Absolute Auto 0.8 K/mm3 (0.1-0.6); Monocytes Percent Auto 8.1 % (2.6-8.5); Neutrophils Absolute Auto 7.2 K/mm3 (1.3-6.7); Neutrophils Percent Auto 77.8 % (45.5-73.1); Platelet Count Result 338 k/mm3 (150-375); Red Blood Count 4.36 M/mm3 (4.6-6.20); Red Cell Distribution Width 12.6 % (11.5-14.5); White Blood Count 9.3 K/mm3 (4.5-10.0)
[2024-08-25 08:52] LABS: Alanine Aminotransferase 46 U/L (6-50); Albumin Level 4.3 g/dL (3.5-5.1); Alkaline Phosphatase 102 U/L (38-126); Anion Gap 7 mmol/L (4-12); Aspartate Amino Transferase 51 U/L (17-59); Bilirubin,Total 0.5 mg/dL (0.2-1.3); Blood Urea Nitrogen 14 mg/dL (9-20); Calcium 9.3 mg/dL (8.4-10.2); Carbon Dioxide 30 mmol/L (22-30); Chloride 84 mmol/L (98-107); Estimated CRCL calculation 78 ml/min; Estimated Glomerular Filt Rate > 60; Glucose 97 mg/dL (65-110); Potassium 3.9 mmol/L (3.4-5.0); Sodium 121 mmol/L (137-145)
[2024-08-25 09:13] LABS: Add Urine Microscopic? YES; Appearance Urine Clear (Clear); Bacteria Urine None Seen /hpf; Bilirubin Urine Negative (Negative); Blood Urine 1+ (Negative); Color Urine Yellow (Yellow); Glucose Urine UA Negative (Negative); Ketones Urine Trace mg/dL (Negative); Leukocyte Esterase Ur Negative LEU/UL (Negative); Nitrate Urine Negative (Negative); Non Pathogenic Casts 0-2; Protein Urine Trace mg/dL (Negative); RBC Urine 21-50 /hpf (0-2); Specific Grav Ur 1.014 (1.001-1.035); Squamous Epithelial Cell Urine None Seen /hpf (Few); Urobilinogen Urine 0.2 mg/dL (<2.0); WBC Urine 0-5 /hpf (0-3)
[2024-08-25] MEDS: SODIUM CHLORIDE 0.9% IV 1,000 ML 999 ML IV CONT (11:01)
[2024-08-25 11:11] LABS: Sodium Urine Random 105 meq/L
[2024-08-25] MEDS: SODIUM CHLORIDE 0.9% IV 1,000 ML 60 ML IV CONT (12:57)
--- NOTE | 2024-08-25 13:00 | PM.IMHP ---
H&P: HPI History of Present Illness Date/Time: 08/25/24 13:00 Chief Complaint: Weakness. Narrative: This is an 84-year-old male with chronic hyponatremia, hypertension, hyperlipidemia, aortic stenosis, sick sinus syndrome status post dual chamber pacemaker implantation, and Crohn's disease who presented to the emergency department for evaluation of weakness. The patient provides the following history. He has been increasingly weak and unsteady on his feet the last several weeks and has had several falls. He was seen in the ED on 08/16/2024 with left shoulder pain after fall and was found to have an avulsion fracture of the greater tuberosity of the proximal humerus. He was seen in the ED several days later after another fall with no new injuries and the day after that with another fall. Sodium was 124 at that time which is lower than what he typically runs however he was feeling well enough that he wished to be discharged home with outpatient follow-up. Unfortunately over the last couple of days he has felt increasingly weak to the point where he does not feel as though his legs are strong enough to hold him. He denies focal weakness, paresthesias, vertigo, syncope, near syncope, facial droop, difficulty speaking and swallowing, chest pain, shortness of breath, cold and flu symptoms, nausea, vomiting, and diarrhea. In the ED: He was afebrile on arrival with stable vital signs. Labs were significant for WBC count of 9.3, hemoglobin 14.1, sodium 121, chloride 84, BUN 14, creatinine 0.60, TSH 2.550. Chest x-ray showed no acute cardiopulmonary disease. He received a 1 L normal saline bolus and he is being admitted in this setting for further workup. Review of Systems Review of Systems: 12 systems were reviewed and are negative except for as per HPI. [facility] Past Medical History Medical History (Updated 08/25/24 @ 14:03 by Alexa Jackson PA-C) Adenomatous colon polyp Aortic stenosis Crohn's disease without complication Essential hypertension Mixed hyperlipidemia Nasal polyps Nicotine dependence, other tobacco product, in remission Osteoarthritis of spine with radiculopathy, lumbar region Prostate cancer Sick sinus syndrome (03/05/15) Status post [place] dual chamber permanent pacemaker placement. Spinal stenosis of lumbar region at multiple levels Surgical History Surgical History (Updated 08/25/24 @ 14:03 by Alexa Jackson PA-C) History of cataract extraction History of permanent cardiac pacemaker placement History of prostatectomy History of spinal fusion History of transurethral resection of prostate Family History Family History Mother Family history of Alzheimer's disease Father Family history of osteoporosis Malignant neoplasm of prostate Social History Social History (Updated 08/25/24 @ 13:52 by Alexa Jackson PA-C) Social History: Surrogate medical decision maker: Aliza Eliseer, spouse. Code status: Full code. Years smoked: 40 Smoking status: Never smoker Tobacco type: pipe Second hand tobacco smoke exposure: Yes Smoking end date: 12/05/18 Alcohol intake: never Alcohol use details: rarely Substance use: never Substance use type: does not use Do You Feel Safe in your Home?: Yes Lack of Transportation: No Lack of Food: Never True Current Housing: I Have Housing Concerned About Future Housing: No Difficulty Paying Gas/Electric Bills: No Difficulty Paying for Meds: No Currently Unemployed: No Education: Don't Know Difficulty w/ Childcare or Family Care: No Living arrangements: with family Additional living arrangements comments: Lives with spouse in [place]. 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 Spiritual care concerns: No Meds Home Medications and Allergies Home Medications Medication Instructions Recorded Confirmed Type a
--- NOTE | 2024-08-25 13:16 | ADMGEN ---
This patient, Dinesh Saha, was admitted to Medical Room 344-01. Patient/family oriented to hospital policies and general routines including ID bracelet, bed and alarms, visiting hours, pain management, procedures, bathroom and other care routines, personal items, smoking policy, room service/diet, and visiting hours. Information on how to activate the Rapid Response Team has been discussed. Patient/Family are encouraged to report perceived risks to care and to ask questions if they do not understand what they are told or what they should do.
[2024-08-25 13:28] LABS: Anion Gap 5 mmol/L (4-12); Blood Urea Nitrogen 12 mg/dL (9-20); Calcium 8.7 mg/dL (8.4-10.2); Carbon Dioxide 29 mmol/L (22-30); Chloride 86 mmol/L (98-107); Estimated CRCL calculation 78 ml/min; Estimated Glomerular Filt Rate > 60; Glucose 102 mg/dL (65-110); Potassium 3.8 mmol/L (3.4-5.0); Sodium 120 mmol/L (137-145)
[2024-08-25 14:06] LABS: Creatinine Urine 47.2 mg/dL; Urea Random Urine 375 MG/DL
[2024-08-25 17:54] LABS: Sodium 120 mmol/L (137-145)
[2024-08-25] MEDS: ATORVASTATIN 20 MG TABLET BY MOUTH (21:27)
[2024-08-25] MEDS: lisinopriL 20 MG TABLET 40 MG PO (21:28)
[2024-08-25] MEDS: amLODIPine BESYLATE 5 MG TABLET PO (21:28)
[2024-08-25 23:27] LABS: Sodium 122 mmol/L (137-145)
[2024-08-25] MEDS: clonazePAM (*CRX) 0.25 MG TABLET PO (23:57)
[2024-08-26] VITALS (9 sets, daily range): BP systolic 95–133; BP diastolic 50–78; PULSE 62–77; RESP 18–20; TEMP 36.3–36.8; O2SAT 96–99
[2024-08-26 05:32] LABS: Hematocrit 39.7 % (42.0-52.0); Hemoglobin 13.5 g/dL (14.0-18.0); Mean Corpuscular Hemoglobin 31.9 pg (26-34); Mean Corpuscular Volume 93.9 fl (80-100); Mean Platelet Volume 8.7 fl (7.4-10.4); Platelet Count Result 343 k/mm3 (150-375); Red Blood Count 4.23 M/mm3 (4.6-6.20); Red Cell Distribution Width 12.8 % (11.5-14.5); White Blood Count 10.1 K/mm3 (4.5-10.0)
[2024-08-26 05:44] LABS: Anion Gap 7 mmol/L (4-12); Blood Urea Nitrogen 10 mg/dL (9-20); Carbon Dioxide 25 mmol/L (22-30); Chloride 92 mmol/L (98-107); Estimated CRCL calculation 78 ml/min; Estimated Glomerular Filt Rate > 60; Glucose 99 mg/dL (65-110); Magnesium 2.1 mg/dL (1.6-2.3); Sodium 124 mmol/L (137-145)
[2024-08-26] MEDS: CYANOCOBALAMIN 1,000 MCG TABLET 5000 MCG PO (09:13)
[2024-08-26] MEDS: MULTIVITAMINS THERAPEUTIC TAB (*BKC) 1 TABLET PO (09:13)
[2024-08-26] MEDS: OMEGA 3 POLYUNSAT FATTY ACIDS 1 GM CAP PO (09:13)
[2024-08-26] MEDS: FOLIC ACID 0.4 MG TABLET PO (09:13)
[2024-08-26 10:57] LABS: Sodium 124 mmol/L (137-145)
--- NOTE | 2024-08-26 11:52 | PM.IMPN ---
Progress Note: A&P Assessment and Plan (1) Hyponatremia: Code(s): E87.1 - Hypo-osmolality and hyponatremia Status: Acute Assessment and Plan: - Na+ 124. - Check sodium q 6. - NS @ 75 ml/hr (2) Generalized weakness: Code(s): R53.1 - Weakness Status: Acute Assessment and Plan: - Check UA, BC x2, Covid RSV Flu swab - PT/OT - Orthostatic vital signs q shift. - Monitor labs. (3) Essential hypertension: Code(s): I10 - Essential (primary) hypertension Status: Acute Assessment and Plan: - Blood pressure 95/50. - Check orthostatics q shift. - Hold Lisinopril and HCTZ. - NS @ 75 ml/hr. (4) Urinary retention: Code(s): R33.9 - Retention of urine, unspecified Status: Acute Assessment and Plan: - Kraft catheter in place - Add Flomax 0.4 mg PO daily. (5) Crohn's disease without complication: Qualifiers: Gastrointestinal tract location: unspecified location Qualified Code(s): K50.90 - Crohn's disease, unspecified, without complications Code(s): K50.90 - Crohn's disease, unspecified, without complications Status: Acute Assessment and Plan: - monitor stools (6) Lower back pain: Code(s): M54.50 - Low back pain, unspecified Status: Acute Assessment and Plan: - Acetaminophen PRN Subjective Date/time seen: 08/26/24 11:52 Interval history: Patient reports feeling weak and is agreeable to therapy. Patient denies chest pain, palpitations, headache, dizziness, nausea, or vomiting. Patient reports low back pain that is a 3 , constant, and aching. Review of Systems Review of Systems: All systems reviewed & are unremarkable except as noted in HPI and below Exam Const: General: no acute distress Eyes: Sclera: sclerae normal Neck: Neck: supple Resp: Effort & Inspection: normal respiratory effort Auscultation: clear to auscultation bilaterally Cardio: Rate: regular rate Rhythm: regular rhythm GI: GI Palp: Yes Soft to palpation Auscultation: normal bowel sounds Urinary Catheter: Urinary Catheter: patent and draining Neuro: Speech: normal speech Extrem: General: normal to inspection Psych: Mental Status: mental status grossly normal Affect: normal affect Objective Data Vital Signs Vital Signs: Vital Signs - 24 hr 08/25/24 12:02 08/25/24 12:42 08/25/24 14:00 Temperature 97.8 F 97.8 F 97.7 F Pulse Rate 65 67 69 Respiratory Rate 17 16 18 Blood Pressure 147/74 H 137/63 106/58 L Pulse Oximetry 97 94 97 Oxygen Delivery 08/25/24 16:00 08/25/24 21:00 08/25/24 21:54 Temperature 97.6 F Pulse Rate 65 82 Respiratory Rate 18 Blood Pressure 126/55 L 126/55 L Pulse Oximetry 97 Oxygen Delivery 08/25/24 21:30 08/25/24 20:00 08/26/24 00:00 Temperature Pulse Rate 74 65 Respiratory Rate Blood Pressure Pulse Oximetry Oxygen Delivery Room Air 08/26/24 04:00 08/26/24 06:00 08/26/24 08:00 Temperature 97.3 F L Pulse Rate 67 65 Respiratory Rate 20 Blood Pressure 133/78 Pulse Oximetry 99 Oxygen Delivery Room Air 08/26/24 08:00 Temperature Pulse Rate 63 Respiratory Rate Blood Pressure Pulse Oximetry Oxygen Delivery Intake/Output Intake/Output: Intake & Output 08/23/24 08/24/24 08/25/24 08/26/24 23:59 23:59 23:59 23:59 Intake Total 1480 630 Output Total 1145 1900 Balance 335 -1270 Meds/Results Medications: Active Medications Generic Name Dose Route Start Last Admin Trade Name Freq PRN Reason Stop Dose Admin Acetaminophen 650 mg 08/25/24 14:19 Acetaminophen 325 Mg Tablet PO Q6H PRN Mild Pain (1-3) or Fever Amlodipine Besylate 5 mg 08/25/24 21:00 08/25/24 21:28 Amlodipine Besylate 5 Mg Tablet PO 5 mg QHS HERBIE Administration Atorvastatin Calcium 20 mg 08/25/24 21:00 08/25/24 21:27 Atorvastatin 20 Mg Tablet BY MOUTH 20 mg HS HERBIE Administration Clonazep
[2024-08-26] MEDS: SODIUM CHLORIDE 0.9% IV 1,000 ML 75 ML IV CONT (14:58)
[2024-08-26 15:26] LABS: Add Urine Microscopic? YES; Appearance Urine Cloudy (Clear); Bacteria Urine None Seen /hpf; Bilirubin Urine 1+ (Negative); Blood Urine 3+ (Negative); Color Urine Dark Yellow (Yellow); Glucose Urine UA Negative (Negative); Ketones Urine Trace mg/dL (Negative); Leukocyte Esterase Ur 2+ LEU/UL (Negative); Need Manual Microscopic Reviewed; Nitrate Urine Negative (Negative); Non Pathogenic Casts >20; Protein Urine 2+ mg/dL (Negative); RBC Urine >100 /hpf (0-2); Specific Grav Ur 1.021 (1.001-1.035); Squamous Epithelial Cell Urine Many /hpf (Few); pH Urine 5.5 (5.0-9.0)
[2024-08-26 15:47] LABS: Influenza A QL RT-PCR Negative (Negative); Influenza B QL RT-PCR Negative (Negative); RSV RNA, RT-PCR Negative (Negative); SARS-CoV-2 RNA PCR Negative (Negative)
[2024-08-27] VITALS (15 sets, daily range): BP systolic 93–150; BP diastolic 52–75; PULSE 62–90; RESP 16–18; TEMP 36.4–36.8; O2SAT 95–100
[2024-08-27] MEDS: ATORVASTATIN 20 MG TABLET BY MOUTH (00:04)
[2024-08-27] MEDS: amLODIPine BESYLATE 5 MG TABLET PO (00:04)
[2024-08-27] MEDS: clonazePAM (*CRX) 0.25 MG TABLET PO (00:04)
[2024-08-27] MEDS: DOCUSATE SODIUM 100 MG CAPSULE PO (00:04)
[2024-08-27] MEDS: MELATONIN 5 MG TABLET PO (00:04)
[2024-08-27] MEDS: SODIUM CHLORIDE 0.9% IV 1,000 ML 75 ML IV CONT ×2 (04:21→17:46)
[2024-08-27 06:50] LABS: Basophils Percent Auto 0.4 % (0.2-1.2); Eosinophils Absolute Auto 0.2 K/mm3 (0-0.3); Eosinophils Percent Auto 1.8 % (0-4.4); Hematocrit 35.9 % (42.0-52.0); Hemoglobin 12.4 g/dL (14.0-18.0); Immature Granulocyte Absolute 0.05 K/mm3 (0.00-0.031); Immature Granulocyte Percent A 0.6 % (0-0.5); Lymphocytes Absolute Auto 1.02 K/mm3 (0.9-3.2); Lymphocytes Percent Auto 12.2 % (18.3-44.2); Mean Corpuscular HGB Conc 34.5 g/dl (32-36); Mean Corpuscular Hemoglobin 32.6 pg (26-34); Mean Corpuscular Volume 94.5 fl (80-100); Monocytes Absolute Auto 0.8 K/mm3 (0.1-0.6); Monocytes Percent Auto 9.8 % (2.6-8.5); Neutrophils Absolute Auto 6.3 K/mm3 (1.3-6.7); Neutrophils Percent Auto 75.2 % (45.5-73.1); Platelet Count Result 297 k/mm3 (150-375); White Blood Count 8.4 K/mm3 (4.5-10.0)
[2024-08-27 07:01] LABS: Alanine Aminotransferase 33 U/L (6-50); Albumin Level 3.3 g/dL (3.5-5.1); Alkaline Phosphatase 89 U/L (38-126); Anion Gap 3 mmol/L (4-12); Aspartate Amino Transferase 34 U/L (17-59); Bilirubin,Total 0.5 mg/dL (0.2-1.3); Blood Urea Nitrogen 13 mg/dL (9-20); Calcium 8.6 mg/dL (8.4-10.2); Carbon Dioxide 26 mmol/L (22-30); Chloride 93 mmol/L (98-107); Estimated CRCL calculation 78 ml/min; Estimated Glomerular Filt Rate > 60; Glucose 91 mg/dL (65-110); Potassium 3.8 mmol/L (3.4-5.0); Sodium 122 mmol/L (137-145)
[2024-08-27] MEDS: OMEGA 3 POLYUNSAT FATTY ACIDS 1 GM CAP PO (10:14)
[2024-08-27] MEDS: FOLIC ACID 0.4 MG TABLET PO (10:14)
[2024-08-27] MEDS: MULTIVITAMINS THERAPEUTIC TAB (*BKC) 1 TABLET PO (10:14)
[2024-08-27] MEDS: CYANOCOBALAMIN 1,000 MCG TABLET 5000 MCG PO (10:14)
[2024-08-27] MEDS: TAMSULOSIN HCL 0.4 MG CAPSULE PO (10:14)
[2024-08-27 11:48] LABS: Osmolality, Urine 473 mOsm/kg (50-1200)
[2024-08-27] MEDS: ACETAMINOPHEN 500 MG TABLET PO ×2 (12:32→17:46)
[2024-08-27 14:27] LABS: Sodium 124 mmol/L (137-145)
--- NOTE | 2024-08-27 15:39 | PM.IMPN ---
Progress Note: A&P Assessment and Plan (1) Hyponatremia: Code(s): E87.1 - Hypo-osmolality and hyponatremia Status: Acute Assessment and Plan: - Na+ 124. - Monitor labs. - NS @ 75 ml/hr (2) Generalized weakness: Code(s): R53.1 - Weakness Status: Acute Assessment and Plan: - Covid RSV Flu swab all negative - Urine culture pending. - Blood cultures no growth to date. - PT/OT - Orthostatic vital signs q shift. Orthostatics this morning: supine BP 136/65 HR 75, sitting BP 144/70 HR 80, and standing BP 150/75 HR 90. - Monitor labs. (3) Essential hypertension: Code(s): I10 - Essential (primary) hypertension Status: Acute Assessment and Plan: - Blood pressure 93/52 this afternoon. - Check orthostatics q shift. Orthostatics this morning: supine BP 136/65 HR 75, sitting BP 144/70 HR 80, and standing BP 150/75 HR 90. - Hold Lisinopril and HCTZ. - NS @ 75 ml/hr. (4) Urinary retention: Code(s): R33.9 - Retention of urine, unspecified Status: Acute Assessment and Plan: - Kraft catheter in place - Add Flomax 0.4 mg PO daily. (5) Crohn's disease without complication: Qualifiers: Gastrointestinal tract location: unspecified location Qualified Code(s): K50.90 - Crohn's disease, unspecified, without complications Code(s): K50.90 - Crohn's disease, unspecified, without complications Status: Acute Assessment and Plan: - monitor stools (6) Lower back pain: Code(s): M54.50 - Low back pain, unspecified Status: Acute Assessment and Plan: - Acetaminophen PRN Subjective Date/time seen: 08/27/24 15:39 Interval history: Patient reports feeling weak and is agreeable to therapy. Patient denies chest pain, palpitations, headache, dizziness, nausea, or vomiting. Patient reports low back pain that is a 3 , constant, and aching. Reports taking Tylenol 500 mg PO q 6 routine at home. Review of Systems Review of Systems: All systems reviewed & are unremarkable except as noted in HPI and below Exam Const: General: no acute distress Eyes: Sclera: sclerae normal Neck: Neck: supple Resp: Effort & Inspection: normal respiratory effort Auscultation: clear to auscultation bilaterally Cardio: Rate: regular rate Rhythm: regular rhythm GI: GI Palp: Yes Soft to palpation Auscultation: normal bowel sounds Neuro: General: gait normal Extrem: General: normal to inspection Psych: Mental Status: mental status grossly normal Objective Data Vital Signs Vital Signs: Vital Signs - 24 hr 08/26/24 16:00 08/26/24 20:00 08/26/24 22:29 Temperature 98.2 F Pulse Rate 62 66 64 Respiratory Rate 20 Blood Pressure 106/56 L Pulse Oximetry 99 Oxygen Delivery Fraction of Inspired Oxygen 08/27/24 00:04 08/27/24 00:00 08/27/24 04:00 Temperature Pulse Rate 67 64 Respiratory Rate Blood Pressure 138/70 Pulse Oximetry Oxygen Delivery Fraction of Inspired Oxygen 08/27/24 06:00 08/27/24 06:00 08/27/24 06:05 Temperature 97.5 F L 97.7 F 97.6 F Pulse Rate 67 75 80 Respiratory Rate 18 18 18 Blood Pressure 130/52 L 132/68 150/68 H Pulse Oximetry 96 96 96 Oxygen Delivery Fraction of Inspired Oxygen 08/27/24 06:00 08/27/24 08:33 08/27/24 08:33 Temperature 97.5 F L Pulse Rate 67 75 80 Respiratory Rate 18 Blood Pressure 130/52 L 136/65 144/70 H Pulse Oximetry 96 Oxygen Delivery Fraction of Inspired Oxygen 08/27/24 08:34 08/27/24 10:14 08/27/24 08:00 Temperature Pulse Rate 90 62 Respiratory Rate Blood Pressure 150/75 H Pulse Oximetry Oxygen Delivery Room Air Fraction of Inspired Oxygen 08/27/24 12:00 08/27/24 09:00 08/27/24 13:51 Temperature 98.2 F Pulse Rate 74 67 Respiratory Rate 18 Blood Pressure 93/52 L Pulse Oximetry 95 100 Oxygen Delivery Room Air Fraction of Inspired Oxygen 21 Intake/Out
[2024-08-28] VITALS (13 sets, daily range): BP systolic 82–141; BP diastolic 41–76; PULSE 60–95; RESP 12–18; TEMP 36.2–36.6; O2SAT 96–100
[2024-08-28] MEDS: ATORVASTATIN 20 MG TABLET BY MOUTH (00:06)
[2024-08-28] MEDS: amLODIPine BESYLATE 5 MG TABLET PO (00:06)
[2024-08-28] MEDS: MELATONIN 5 MG TABLET PO (00:06)
[2024-08-28] MEDS: ACETAMINOPHEN 500 MG TABLET PO ×3 (00:06→18:17)
[2024-08-28] MEDS: clonazePAM (*CRX) 0.25 MG TABLET PO (00:07)
[2024-08-28] MEDS: DOCUSATE SODIUM 100 MG CAPSULE PO (00:07)
[2024-08-28] MEDS: SODIUM CHLORIDE 0.9% IV 1,000 ML 75 ML IV CONT (05:47)
[2024-08-28 06:30] LABS: Basophils Percent Auto 0.3 % (0.2-1.2); Eosinophils Absolute Auto 0.1 K/mm3 (0-0.3); Eosinophils Percent Auto 1.5 % (0-4.4); Hematocrit 35.1 % (42.0-52.0); Hemoglobin 11.9 g/dL (14.0-18.0); Immature Granulocyte Absolute 0.07 K/mm3 (0.00-0.031); Immature Granulocyte Percent A 0.8 % (0-0.5); Lymphocytes Absolute Auto 0.95 K/mm3 (0.9-3.2); Lymphocytes Percent Auto 10.2 % (18.3-44.2); Mean Corpuscular HGB Conc 33.9 g/dl (32-36); Mean Corpuscular Hemoglobin 31.7 pg (26-34); Mean Corpuscular Volume 93.6 fl (80-100); Monocytes Absolute Auto 0.8 K/mm3 (0.1-0.6); Monocytes Percent Auto 8.9 % (2.6-8.5); Neutrophils Absolute Auto 7.3 K/mm3 (1.3-6.7); Neutrophils Percent Auto 78.3 % (45.5-73.1); Platelet Count Result 314 k/mm3 (150-375); Red Blood Count 3.75 M/mm3 (4.6-6.20); Red Cell Distribution Width 12.8 % (11.5-14.5); White Blood Count 9.3 K/mm3 (4.5-10.0)
[2024-08-28 06:44] LABS: Alanine Aminotransferase 31 U/L (6-50); Albumin Level 3.4 g/dL (3.5-5.1); Alkaline Phosphatase 92 U/L (38-126); Anion Gap 4 mmol/L (4-12); Aspartate Amino Transferase 32 U/L (17-59); Bilirubin,Total 0.4 mg/dL (0.2-1.3); Blood Urea Nitrogen 13 mg/dL (9-20); Calcium 8.5 mg/dL (8.4-10.2); Carbon Dioxide 26 mmol/L (22-30); Chloride 95 mmol/L (98-107); Estimated CRCL calculation 92 ml/min; Estimated Glomerular Filt Rate > 60; Glucose 82 mg/dL (65-110); Potassium 3.9 mmol/L (3.4-5.0); Sodium 125 mmol/L (137-145)
[2024-08-28] MEDS: TAMSULOSIN HCL 0.4 MG CAPSULE PO (08:45)
[2024-08-28] MEDS: CYANOCOBALAMIN 1,000 MCG TABLET 5000 MCG PO (08:45)
[2024-08-28] MEDS: OMEGA 3 POLYUNSAT FATTY ACIDS 1 GM CAP PO (08:45)
[2024-08-28] MEDS: FOLIC ACID 0.4 MG TABLET PO (08:45)
[2024-08-28] MEDS: MULTIVITAMINS THERAPEUTIC TAB (*BKC) 1 TABLET PO (08:45)
--- NOTE | 2024-08-28 17:59 | PM.IMPN ---
Progress Note: A&P Assessment and Plan (1) Hyponatremia: Code(s): E87.1 - Hypo-osmolality and hyponatremia Status: Acute Assessment and Plan: Na 120, improving slowly, 124>122<125 over 3 days with NS@75/hr 08/25 Urine osmo 43, Urine Na 105, Serum osmo 251, serum Na 120 - Continue to follow BMP - Continue NS @ 75 ml/hr (2) Generalized weakness: Code(s): R53.1 - Weakness Status: Acute Assessment and Plan: Covid RSV Flu swab all negative - Urine culture pending. - Blood cultures no growth to date. - PT/OT - Orthostatic vital signs q shift. Orthostatics normal 08/27. supine BP 136/65 HR 75, sitting BP 144/70 HR 80, and standing BP 150/75 HR 90. 08/28 99/45, 82/41, 99/45 - Monitor labs. (3) Essential hypertension: Code(s): I10 - Essential (primary) hypertension Status: Acute Assessment and Plan: Blood pressure 82/41, repeat /45 Check orthostatics q shift. Orthostatics this morning: supine BP 136/65 HR 75, sitting BP 144/70 HR 80, and standing BP 150/75 HR 90. - Holding Lisinopril and HCTZ. Would stop HCTZ given significant hyponatremia - NS @ 75 ml/hr. (4) Urinary retention: Code(s): R33.9 - Retention of urine, unspecified Status: Acute Assessment and Plan: Kraft catheter in place - Add Flomax 0.4 mg PO daily. --Void trial in AM (5) Crohn's disease without complication: Qualifiers: Gastrointestinal tract location: unspecified location Qualified Code(s): K50.90 - Crohn's disease, unspecified, without complications Code(s): K50.90 - Crohn's disease, unspecified, without complications Status: Acute Assessment and Plan: - monitor stools (6) Lower back pain: Code(s): M54.50 - Low back pain, unspecified Status: Acute Assessment and Plan: - Acetaminophen PRN Time Spent With Patient Time: 68 minutes Subjective Date/time seen: 08/28/24 17:59 Interval history: Weakness improving, but not back to baseline. Sodium trending up, 125 today Concerned about constipation but nursing reports he is having regular BM's, today and yesterday Denies chest pain, palpitations, headache, dizziness, nausea, or vomiting. Review of Systems Review of Systems: 12 systems were reviewed and are negative except for as per HPI. All systems reviewed & are unremarkable except as noted in HPI and below Objective Data Vital Signs Vital Signs: Vital Signs - 24 hr 08/27/24 19:39 08/27/24 19:52 08/27/24 20:00 Temperature 98.3 F Pulse Rate 63 70 Respiratory Rate 16 Blood Pressure 105/65 140/56 L Pulse Oximetry 98 Oxygen Delivery 08/28/24 00:06 08/28/24 00:00 08/28/24 04:15 Temperature 97.2 F L Pulse Rate 63 60 Respiratory Rate 16 Blood Pressure 116/72 141/76 H Pulse Oximetry 100 Oxygen Delivery 08/28/24 04:00 08/28/24 08:45 08/28/24 15:10 Temperature 97.8 F Pulse Rate 60 84 Respiratory Rate 16 Blood Pressure 99/45 L Pulse Oximetry 96 Oxygen Delivery Room Air 08/28/24 15:10 08/28/24 15:15 08/28/24 15:19 Temperature 97.8 F 97.9 F 97.5 F L Pulse Rate 84 86 95 Respiratory Rate 16 16 12 Blood Pressure 99/45 L 82/41 L 99/45 L Pulse Oximetry 96 97 97 Oxygen Delivery 08/28/24 08:00 08/28/24 12:00 08/28/24 16:00 Temperature Pulse Rate 67 63 89 Respiratory Rate Blood Pressure Pulse Oximetry Oxygen Delivery Intake/Output Intake/Output: Intake & Output 08/25/24 08/26/24 08/27/24 08/28/24 23:59 23:59 23:59 23:59 Intake Total 1480 1510 4320 1971.3 Output Total 1145 2400 1640 2625 Balance 335 890 2680 653.7 Meds/Results Medications: Active Medications Generic Name Dose Route Start Last Admin Trade Name Freq PRN Reason Stop Dose Admin Acetaminophen 500 mg 08/27/24 11:00 08/28/24 12:20 Acetaminophen 500 Mg Tablet PO 500 mg Q6HR HERBIE Administration Amlodipine Besylate 5 mg 08/25/24 21:00
[2024-08-29] VITALS (8 sets, daily range): BP systolic 105–152; BP diastolic 56–77; PULSE 59–66; RESP 16–18; TEMP 36.4–36.8; O2SAT 98–100
[2024-08-29] MEDS: amLODIPine BESYLATE 5 MG TABLET PO ×2 (00:25→23:55)
[2024-08-29] MEDS: MELATONIN 5 MG TABLET PO ×2 (00:25→23:56)
[2024-08-29] MEDS: ATORVASTATIN 20 MG TABLET BY MOUTH ×2 (00:25→23:56)
[2024-08-29] MEDS: ACETAMINOPHEN 500 MG TABLET PO ×4 (00:25→23:56)
[2024-08-29] MEDS: DOCUSATE SODIUM 100 MG CAPSULE PO ×2 (00:25→23:57)
[2024-08-29] MEDS: clonazePAM (*CRX) 0.25 MG TABLET PO ×2 (00:25→23:56)
[2024-08-29] MEDS: SODIUM CHLORIDE 0.9% IV 1,000 ML 75 ML IV CONT ×2 (00:25→13:54)
[2024-08-29 06:46] LABS: Basophils Percent Auto 0.3 % (0.2-1.2); Eosinophils Absolute Auto 0.2 K/mm3 (0-0.3); Eosinophils Percent Auto 2.6 % (0-4.4); Hematocrit 35.9 % (42.0-52.0); Hemoglobin 12.4 g/dL (14.0-18.0); Immature Granulocyte Absolute 0.04 K/mm3 (0.00-0.031); Immature Granulocyte Percent A 0.5 % (0-0.5); Lymphocytes Absolute Auto 0.86 K/mm3 (0.9-3.2); Lymphocytes Percent Auto 11.2 % (18.3-44.2); Mean Corpuscular HGB Conc 34.5 g/dl (32-36); Mean Corpuscular Hemoglobin 32.8 pg (26-34); Mean Platelet Volume 8.8 fl (7.4-10.4); Monocytes Absolute Auto 0.7 K/mm3 (0.1-0.6); Monocytes Percent Auto 8.7 % (2.6-8.5); Neutrophils Absolute Auto 5.9 K/mm3 (1.3-6.7); Neutrophils Percent Auto 76.7 % (45.5-73.1); Platelet Count Result 298 k/mm3 (150-375); Red Blood Count 3.78 M/mm3 (4.6-6.20); White Blood Count 7.7 K/mm3 (4.5-10.0)
[2024-08-29 06:58] LABS: Alanine Aminotransferase 34 U/L (6-50); Albumin Level 3.5 g/dL (3.5-5.1); Alkaline Phosphatase 115 U/L (38-126); Anion Gap 4 mmol/L (4-12); Aspartate Amino Transferase 35 U/L (17-59); Bilirubin,Total 0.5 mg/dL (0.2-1.3); Blood Urea Nitrogen 10 mg/dL (9-20); Calcium 8.8 mg/dL (8.4-10.2); Carbon Dioxide 26 mmol/L (22-30); Chloride 95 mmol/L (98-107); Estimated CRCL calculation 78 ml/min; Estimated Glomerular Filt Rate > 60; Glucose 93 mg/dL (65-110); Potassium 3.8 mmol/L (3.4-5.0); Sodium 125 mmol/L (137-145)
[2024-08-29] MEDS: OMEGA 3 POLYUNSAT FATTY ACIDS 1 GM CAP PO (09:14)
[2024-08-29] MEDS: MULTIVITAMINS THERAPEUTIC TAB (*BKC) 1 TABLET PO (09:15)
[2024-08-29] MEDS: CYANOCOBALAMIN 1,000 MCG TABLET 5000 MCG PO (09:15)
[2024-08-29] MEDS: TAMSULOSIN HCL 0.4 MG CAPSULE PO (09:15)
[2024-08-29] MEDS: FOLIC ACID 0.4 MG TABLET PO (09:15)
--- NOTE | 2024-08-29 10:25 | PM.IMPN ---
Progress Note: A&P Assessment and Plan (1) Hyponatremia: Code(s): E87.1 - Hypo-osmolality and hyponatremia Status: Acute Assessment and Plan: Na 120, improving slowly, 124>122<125 over 3 days with NS@75/hr 08/25 Urine osmo 43, Urine Na 105, Serum osmo 251, serum Na 120 - Continue to follow BMP - Continue NS @ 75 ml/hr (2) Generalized weakness: Code(s): R53.1 - Weakness Status: Acute Assessment and Plan: Covid RSV Flu swab all negative - Urine culture pending. - Blood cultures no growth to date. - PT/OT - Orthostatic vital signs q shift. Orthostatics normal 08/27. supine BP 136/65 HR 75, sitting BP 144/70 HR 80, and standing BP 150/75 HR 90. 08/28 99/45, 82/41, /45 - Monitor labs. - work with PT/OT (3) Essential hypertension: Code(s): I10 - Essential (primary) hypertension Status: Acute Assessment and Plan: Blood pressure 82/41, repeat /45 Check orthostatics q shift. Orthostatics this morning: supine BP 136/65 HR 75, sitting BP 144/70 HR 80, and standing BP 150/75 HR 90. - Holding Lisinopril and HCTZ. Would stop HCTZ given significant hyponatremia - NS @ 75 ml/hr. (4) Urinary retention: Code(s): R33.9 - Retention of urine, unspecified Status: Acute Assessment and Plan: Kraft catheter in place - Add Flomax 0.4 mg PO daily. --Void trial (5) Crohn's disease without complication: Qualifiers: Gastrointestinal tract location: unspecified location Qualified Code(s): K50.90 - Crohn's disease, unspecified, without complications Code(s): K50.90 - Crohn's disease, unspecified, without complications Status: Acute Assessment and Plan: - monitor stools (6) Lower back pain: Code(s): M54.50 - Low back pain, unspecified Status: Acute Assessment and Plan: - Acetaminophen PRN Time Spent With Patient Time with patient: Greater than 35 minutes Subjective Date/time seen: 08/29/24 10:25 Interval history: Assuming care. Weakness improving, but not back to baseline. Sodium 125 today Denies chest pain, palpitations, headache, dizziness, nausea, or vomiting. REports constipation but per nursing reports pt had been having a regular BMs. Review of Systems Review of Systems: 12 systems were reviewed and are negative except for as per HPI. All systems reviewed & are unremarkable except as noted in HPI and below Genitourinary: Genitourinary: Denies hematuria Musculoskeletal: Musculoskeletal: Denies back pain Integumentary/Breasts: Skin/Breast: Denies skin pain Exam Const: General: no acute distress Eyes: Sclera: sclerae normal Neck: Neck: supple Resp: Effort & Inspection: normal respiratory effort Auscultation: clear to auscultation bilaterally Cardio: Rate: regular rate Rhythm: regular rhythm GI: Auscultation: normal bowel sounds Urinary Catheter: Urinary Catheter: patent and draining Neuro: General: gait normal Speech: normal speech Extrem: General: normal to inspection Psych: Mental Status: mental status grossly normal Affect: Anxious affect present Objective Data Vital Signs Vital Signs: Vital Signs - 24 hr 08/28/24 15:10 08/28/24 15:10 08/28/24 15:15 Temperature 97.8 F 97.8 F 97.9 F Pulse Rate 84 84 86 Respiratory Rate 16 16 16 Blood Pressure 99/45 L 99/45 L 82/41 L Pulse Oximetry 96 96 97 Oxygen Delivery 08/28/24 15:19 08/28/24 12:00 08/28/24 16:00 Temperature 97.5 F L Pulse Rate 95 63 89 Respiratory Rate 12 Blood Pressure 99/45 L Pulse Oximetry 97 Oxygen Delivery 08/28/24 20:00 08/28/24 20:00 08/28/24 21:05 Temperature 97.7 F Pulse Rate 60 62 Respiratory Rate 18 Blood Pressure 121/57 L Pulse Oximetry 99 Oxygen Delivery Room Air 08/28/24 21:10 08/29/24 00:00 08/29/24 00:24 Temperature Pulse Rate 70 64 Respiratory Rate Blood Pressure 126/57 L 148/62 H Pulse Oximetry Oxygen Delivery 1
[2024-08-30] MEDS: SODIUM CHLORIDE 0.9% IV 1,000 ML 75 ML IV CONT (03:15)
[2024-08-30] MEDS: ACETAMINOPHEN 500 MG TABLET PO ×3 (05:40→17:01)
[2024-08-30 06:00] VITALS: BP 156/69; PULSE 66; RESP 20; TEMP 36.5; O2SAT 100
[2024-08-30 06:35] LABS: Basophils Percent Auto 0.4 % (0.2-1.2); Eosinophils Absolute Auto 0.2 K/mm3 (0-0.3); Eosinophils Percent Auto 2.5 % (0-4.4); Hematocrit 37.2 % (42.0-52.0); Hemoglobin 12.5 g/dL (14.0-18.0); Immature Granulocyte Absolute 0.05 K/mm3 (0.00-0.031); Immature Granulocyte Percent A 0.6 % (0-0.5); Lymphocytes Absolute Auto 0.83 K/mm3 (0.9-3.2); Lymphocytes Percent Auto 9.7 % (18.3-44.2); Mean Corpuscular HGB Conc 33.6 g/dl (32-36); Mean Corpuscular Hemoglobin 31.7 pg (26-34); Mean Corpuscular Volume 94.4 fl (80-100); Mean Platelet Volume 8.7 fl (7.4-10.4); Monocytes Absolute Auto 0.8 K/mm3 (0.1-0.6); Monocytes Percent Auto 9.3 % (2.6-8.5); Neutrophils Absolute Auto 6.6 K/mm3 (1.3-6.7); Neutrophils Percent Auto 77.5 % (45.5-73.1); Platelet Count Result 315 k/mm3 (150-375); Red Blood Count 3.94 M/mm3 (4.6-6.20); Red Cell Distribution Width 12.9 % (11.5-14.5); White Blood Count 8.5 K/mm3 (4.5-10.0)
[2024-08-30 06:50] LABS: Alanine Aminotransferase 33 U/L (6-50); Albumin Level 3.8 g/dL (3.5-5.1); Alkaline Phosphatase 130 U/L (38-126); Anion Gap 5 mmol/L (4-12); Aspartate Amino Transferase 32 U/L (17-59); Bilirubin,Total 0.6 mg/dL (0.2-1.3); Blood Urea Nitrogen 9 mg/dL (9-20); Carbon Dioxide 27 mmol/L (22-30); Chloride 95 mmol/L (98-107); Estimated CRCL calculation 78 ml/min; Estimated Glomerular Filt Rate > 60; Glucose 91 mg/dL (65-110); Potassium 3.8 mmol/L (3.4-5.0); Sodium 127 mmol/L (137-145)
--- NOTE | 2024-08-30 08:32 | PM.IMPN ---
Progress Note: A&P Assessment and Plan (1) Hyponatremia: Code(s): E87.1 - Hypo-osmolality and hyponatremia Status: Acute Assessment and Plan: Na 120, improving slowly, 124>122<125 over 3 days with NS@75/hr 08/25 Urine osmo 43, Urine Na 105, Serum osmo 251, serum Na 120 - Continue to follow BMP -Stop fluids -Trial of torsemide and sodium tabs, follow sodium (2) Generalized weakness: Code(s): R53.1 - Weakness Status: Acute Assessment and Plan: Covid RSV Flu swab all negative - Urine culture pending. - Blood cultures no growth to date. - PT/OT - Orthostatic vital signs q shift. Orthostatics normal 08/27. supine BP 136/65 HR 75, sitting BP 144/70 HR 80, and standing BP 150/75 HR 90. 08/28 99/45, 82/41, /45 - Monitor labs. - work with PT/OT (3) Essential hypertension: Code(s): I10 - Essential (primary) hypertension Status: Acute Assessment and Plan: Initially low, 82/41, repeat /45 Check orthostatics q shift. Orthostatics this morning: supine BP 136/65 HR 75, sitting BP 144/70 HR 80, and standing BP 150/75 HR 90. Holding Lisinopril and HCTZ. Would stop HCTZ given significant hyponatremia Trial of torsemide (4) Urinary retention: Code(s): R33.9 - Retention of urine, unspecified Status: Acute Assessment and Plan: Kraft catheter in place - Add Flomax 0.4 mg PO daily. --Void trial today, bladder scans (5) Crohn's disease without complication: Qualifiers: Gastrointestinal tract location: unspecified location Qualified Code(s): K50.90 - Crohn's disease, unspecified, without complications Code(s): K50.90 - Crohn's disease, unspecified, without complications Status: Acute Assessment and Plan: - monitor stools, 1 loose stool today --Abdomen distended but nontender and exam benign --Check CRP (6) Lower back pain: Code(s): M54.50 - Low back pain, unspecified Status: Acute Assessment and Plan: - Acetaminophen PRN (7) Bilateral edema of lower extremity: Code(s): R60.0 - Localized edema Status: Acute Assessment and Plan: With erythema to toes bilaterally, and lower extremity edema bilaterally. Has been getting fluids for hyponatremia --Treatment of hyponatremia as noted --Recommended elevating feet/legs during the day and overnight --Follow up with podiatry --Compression stockings tomorrow if improving Time Spent With Patient Time: 59 minutes Subjective Date/time seen: 08/30/24 08:32 Interval history: Assuming care. Weakness improving, but not back to baseline. Sodium 127 today Denies chest pain, palpitations, headache, dizziness, nausea, or vomiting. 1 loose stool today Lower extremity edema and erythema without pain to all toes Review of Systems Review of Systems: 12 systems were reviewed and are negative except for as per HPI. All systems reviewed & are unremarkable except as noted in HPI and below Genitourinary: Genitourinary: Denies hematuria Musculoskeletal: Musculoskeletal: Denies back pain Integumentary/Breasts: Skin/Breast: Denies skin pain Exam Narrative: General - Awake and alert. No acute distress Eyes - PERRLA, EOM intact ENT - No thrush, No erythema Neck - No noticeable or palpable swelling Lymph Nodes - No lymphadenopathy Cardiovascular - RRR no m/r/g, no JVD Lungs: Clear to auscultation, No wheezing, use of accessory muscles, no crackles or wheezes. Skin - Skin warm and dry, no wounds or rashes Abdomen - Normal bowel sounds, abdomen soft and nontender, distended Extremities - cyanosis or clubbing, bilateral lower extemity edema, erythematous toes, especially left great toe, without pain Musculoskeletal - 5/5 strength, normal range of motion, no swollen or erythematous joints. Neurological ? Alert and oriented x 3, CN 2-12 grossly intact. Psych: Normal mood and affect Objective Data Vital Signs Vital Signs: Vital Signs
[2024-08-30] MEDS: TAMSULOSIN HCL 0.4 MG CAPSULE PO (08:44)
[2024-08-30] MEDS: FOLIC ACID 0.4 MG TABLET PO (08:44)
[2024-08-30] MEDS: MULTIVITAMINS THERAPEUTIC TAB (*BKC) 1 TABLET PO (08:44)
[2024-08-30] MEDS: CYANOCOBALAMIN 1,000 MCG TABLET 5000 MCG PO (08:44)
[2024-08-30] MEDS: OMEGA 3 POLYUNSAT FATTY ACIDS 1 GM CAP PO (08:44)
[2024-08-30] MEDS: TORSEMIDE 10 MG TABLET PO (12:21)
[2024-08-30] MEDS: SODIUM CHLORIDE 500 MG TABLET PO (12:21)
[2024-08-30 14:00] VITALS: BP 98/44; PULSE 81; RESP 18; TEMP 36.8; O2SAT 97
[2024-08-30 22:00] VITALS: BP 120/47; PULSE 62; RESP 20; TEMP 36.4; O2SAT 98
[2024-08-31] MEDS: amLODIPine BESYLATE 5 MG TABLET PO ×2 (00:03→23:55)
[2024-08-31] MEDS: ATORVASTATIN 20 MG TABLET BY MOUTH ×2 (00:04→23:54)
[2024-08-31] MEDS: MELATONIN 5 MG TABLET PO ×2 (00:04→23:55)
[2024-08-31] MEDS: clonazePAM (*CRX) 0.25 MG TABLET PO ×2 (00:04→23:56)
[2024-08-31] MEDS: ACETAMINOPHEN 500 MG TABLET PO ×5 (00:04→23:54)
[2024-08-31] MEDS: DOCUSATE SODIUM 100 MG CAPSULE PO ×2 (00:05→23:55)
[2024-08-31 05:49] LABS: Basophils Percent Auto 0.3 % (0.2-1.2); Eosinophils Absolute Auto 0.2 K/mm3 (0-0.3); Eosinophils Percent Auto 2.9 % (0-4.4); Hematocrit 35.3 % (42.0-52.0); Immature Granulocyte Absolute 0.03 K/mm3 (0.00-0.031); Immature Granulocyte Percent A 0.4 % (0-0.5); Lymphocytes Absolute Auto 0.96 K/mm3 (0.9-3.2); Lymphocytes Percent Auto 13.5 % (18.3-44.2); Mean Corpuscular Hemoglobin 32.3 pg (26-34); Mean Corpuscular Volume 94.9 fl (80-100); Mean Platelet Volume 8.7 fl (7.4-10.4); Monocytes Absolute Auto 0.8 K/mm3 (0.1-0.6); Monocytes Percent Auto 10.8 % (2.6-8.5); Neutrophils Absolute Auto 5.1 K/mm3 (1.3-6.7); Neutrophils Percent Auto 72.1 % (45.5-73.1); Platelet Count Result 297 k/mm3 (150-375); Red Blood Count 3.72 M/mm3 (4.6-6.20); Red Cell Distribution Width 13.1 % (11.5-14.5); White Blood Count 7.1 K/mm3 (4.5-10.0)
[2024-08-31 06:00] VITALS: BP 141/64; PULSE 63; RESP 20; TEMP 36.7; O2SAT 98
[2024-08-31 06:04] LABS: Anion Gap 4 mmol/L (4-12); Blood Urea Nitrogen 13 mg/dL (9-20); Calcium 8.9 mg/dL (8.4-10.2); Carbon Dioxide 28 mmol/L (22-30); Chloride 94 mmol/L (98-107); Estimated CRCL calculation 92 ml/min; Estimated Glomerular Filt Rate > 60; Glucose 83 mg/dL (65-110); Potassium 3.8 mmol/L (3.4-5.0); Sodium 126 mmol/L (137-145)
[2024-08-31 08:11] LABS: Glucose Point of Care 123 mg/dl (65-105)
[2024-08-31] MEDS: SODIUM CHLORIDE 500 MG TABLET PO ×2 (08:18→17:18)
[2024-08-31] MEDS: MULTIVITAMINS THERAPEUTIC TAB (*BKC) 1 TABLET PO (08:18)
[2024-08-31] MEDS: CYANOCOBALAMIN 1,000 MCG TABLET 5000 MCG PO (08:18)
[2024-08-31] MEDS: FOLIC ACID 0.4 MG TABLET PO (08:18)
[2024-08-31] MEDS: OMEGA 3 POLYUNSAT FATTY ACIDS 1 GM CAP PO (08:18)
[2024-08-31] MEDS: TAMSULOSIN HCL 0.4 MG CAPSULE PO (08:18)
--- NOTE | 2024-08-31 11:06 | PC.NURSE ---
Patient sitting in chair having breakfast. Fluid restriction explained to patient and questions and concerns addressed. PCT also aware of fluid restriction and to only give patient sips at a time. Patient cooperative and complaint with medications.
[2024-08-31 14:00] VITALS: BP 109/45; PULSE 75; RESP 20; TEMP 36.7; O2SAT 97
[2024-08-31 14:53] LABS: Anion Gap 6 mmol/L (4-12); Blood Urea Nitrogen 18 mg/dL (9-20); Calcium 9.3 mg/dL (8.4-10.2); Carbon Dioxide 28 mmol/L (22-30); Chloride 95 mmol/L (98-107); Estimated CRCL calculation 68 ml/min; Estimated Glomerular Filt Rate > 60; Glucose 104 mg/dL (65-110); Potassium 4.1 mmol/L (3.4-5.0); Sodium 129 mmol/L (137-145)
--- NOTE | 2024-08-31 17:07 | PM.IMPN ---
Progress Note: A&P Assessment and Plan (1) Hyponatremia: Code(s): E87.1 - Hypo-osmolality and hyponatremia Status: Acute Assessment and Plan: Na 120, improving slowly, 124>122<125 over 3 days with NS@75/hr 08/25 Urine osmo 43, Urine Na 105, Serum osmo 251, serum Na 120 - Continue to follow BMP -Stopped fluids 08/30 -Sodium slightly lower after torsemide and sodium tabs, but improved after additional salt tab and fluid restriction. Patient feels very limited by fluid restriction, increase from 1000ml to 1400ml --Increase sodium tabs to BID, continue diuretics for lower extremity edema (can likely change torsemide to PRN when improved) (2) Generalized weakness: Code(s): R53.1 - Weakness Status: Acute Assessment and Plan: Covid RSV Flu swab all negative - Urine culture pending. - Blood cultures no growth to date. - PT/OT - Orthostatic vital signs q shift. Orthostatics normal 08/27. supine BP 136/65 HR 75, sitting BP 144/70 HR 80, and standing BP 150/75 HR 90. 08/28 99/45, 82/41, 45 - Monitor labs. - work with PT/OT (3) Essential hypertension: Code(s): I10 - Essential (primary) hypertension Status: Acute Assessment and Plan: Initially low, 82/41, repeat Check orthostatics q shift. Orthostatics this morning: supine BP 136/65 HR 75, sitting BP 144/70 HR 80, and standing BP 150/75 HR 90. Holding Lisinopril and HCTZ. Would stop HCTZ given significant hyponatremia Trial of torsemide (4) Urinary retention: Code(s): R33.9 - Retention of urine, unspecified Status: Acute Assessment and Plan: Kraft catheter in place - Added Flomax 0.4 mg PO daily. --Void trial 08/30 and doing well bladder scans (5) Crohn's disease without complication: Qualifiers: Gastrointestinal tract location: unspecified location Qualified Code(s): K50.90 - Crohn's disease, unspecified, without complications Code(s): K50.90 - Crohn's disease, unspecified, without complications Status: Acute Assessment and Plan: - monitor stools, 1 loose stool today --Abdomen distended but nontender and exam benign --Check CRP (6) Lower back pain: Code(s): M54.50 - Low back pain, unspecified Status: Acute Assessment and Plan: - Acetaminophen PRN (7) Bilateral edema of lower extremity: Code(s): R60.0 - Localized edema Status: Acute Assessment and Plan: With erythema to toes bilaterally, and lower extremity edema bilaterally. Has been getting fluids for hyponatremia --Treatment of hyponatremia as noted --Torsemide and fluid restriction --Recommended elevating feet/legs during the day and overnight. --Follow up with podiatry --Compression stockings when improving (8) Cellulitis of arm, left: Code(s): L03.114 - Cellulitis of left upper limb Status: Acute Assessment and Plan: Local erythema to left arm near at scabbed area, likely puncture site --Start keflex, 5 days --Also monitor if improvement to erythema of toes. Needs follow up with podiatry for nails/toes Time Spent With Patient Time: 64 minutes Subjective Date/time seen: 08/31/24 15:30 Interval history: Sodium improving, 126<129 with fluid restriction and salt tabs. Also some diuresis for lower extremity edema Overall feeling ok. Would like to go to SNF for rehab Erythema to left forearm new today. Lower extremity edema and erythema without pain to all toes, about the same Review of Systems Review of Systems: 12 systems were reviewed and are negative except for as per HPI. All systems reviewed & are unremarkable except as noted in HPI and below Genitourinary: Genitourinary: Denies hematuria Musculoskeletal: Musculoskeletal: Denies back pain Integumentary/Breasts: Skin/Breast: Denies skin pain Exam Narrative: General - Awake and alert. No acute distress Eyes - PERRLA, EOM intact ENT - No thrush, No erythema N
[2024-08-31] MEDS: CEPHALEXIN 500 MG CAPSULE PO ×2 (17:18→23:54)
[2024-08-31] MEDS: TORSEMIDE 10 MG TABLET PO (17:18)
[2024-08-31 22:04] VITALS: BP 119/57; PULSE 83; RESP 20; TEMP 36.3; O2SAT 100
[2024-09-01 04:55] LABS: Basophils Percent Auto 0.4 % (0.2-1.2); Eosinophils Absolute Auto 0.2 K/mm3 (0-0.3); Eosinophils Percent Auto 2.4 % (0-4.4); Hemoglobin 12.4 g/dL (14.0-18.0); Immature Granulocyte Absolute 0.04 K/mm3 (0.00-0.031); Immature Granulocyte Percent A 0.6 % (0-0.5); Lymphocytes Absolute Auto 1.05 K/mm3 (0.9-3.2); Lymphocytes Percent Auto 15.1 % (18.3-44.2); Mean Corpuscular HGB Conc 33.5 g/dl (32-36); Mean Corpuscular Volume 95.4 fl (80-100); Mean Platelet Volume 8.6 fl (7.4-10.4); Monocytes Absolute Auto 0.7 K/mm3 (0.1-0.6); Monocytes Percent Auto 9.5 % (2.6-8.5); Platelet Count Result 304 k/mm3 (150-375); Red Blood Count 3.88 M/mm3 (4.6-6.20); Red Cell Distribution Width 13.2 % (11.5-14.5); White Blood Count 6.9 K/mm3 (4.5-10.0)
[2024-09-01 05:12] LABS: Anion Gap 5 mmol/L (4-12); Blood Urea Nitrogen 16 mg/dL (9-20); CRP 0.9 mg/dL (<1.0); Calcium 9.2 mg/dL (8.4-10.2); Carbon Dioxide 31 mmol/L (22-30); Chloride 94 mmol/L (98-107); Estimated CRCL calculation 78 ml/min; Estimated Glomerular Filt Rate > 60; Glucose 88 mg/dL (65-110); Potassium 3.6 mmol/L (3.4-5.0); Sodium 130 mmol/L (137-145)
[2024-09-01 05:19] LABS: Erythrocyte Sedimentation Rate 20 mm/hr (0-20)
[2024-09-01] MEDS: ACETAMINOPHEN 500 MG TABLET PO ×3 (05:55→17:44)
[2024-09-01] MEDS: CEPHALEXIN 500 MG CAPSULE PO ×2 (05:56→13:24)
[2024-09-01 06:00] VITALS: BP 133/65; PULSE 66; RESP 18; TEMP 36.6; O2SAT 97
--- NOTE | 2024-09-01 08:01 | PM.IMPN ---
Progress Note: A&P Assessment and Plan (1) Hyponatremia: Code(s): E87.1 - Hypo-osmolality and hyponatremia Status: Acute Assessment and Plan: Na 120, improving slowly, 124>122<125 over 3 days with NS@75/hr 08/25 Urine osmo 43, Urine Na 105, Serum osmo 251, serum Na 120 - Continue to follow BMP -Stopped fluids 08/30 -Sodium slightly lower after torsemide and sodium tabs, but improved after additional salt tab and fluid restriction. Patient feels very limited by fluid restriction, increase from 1000ml to 1400ml, up to 2000ml today since blood pressure soft, can reduce again tomorrow instead of given diuretics --Increase sodium tabs to BID, hold diuretics for lower extremity edema (can likely change torsemide to PRN if blood pressure tolerates) (2) Generalized weakness: Code(s): R53.1 - Weakness Status: Acute Assessment and Plan: Covid RSV Flu swab all negative - Urine culture pending. - Blood cultures no growth to date. - PT/OT - Orthostatic vital signs q shift. Orthostatics normal 08/27. supine BP 136/65 HR 75, sitting BP 144/70 HR 80, and standing BP 150/75 HR 90. 08/28 99/45, 82/41, 99/45 - Monitor labs. - work with PT/OT (3) Essential hypertension: Code(s): I10 - Essential (primary) hypertension Status: Acute Assessment and Plan: Initially low, 82/41, repeat 99/45 Checking orthostatics q shift. Orthostatics this morning: supine BP 136/65 HR 75, sitting BP 144/70 HR 80, and standing BP 150/75 HR 90. Holding Lisinopril and HCTZ. Would stop HCTZ given significant hyponatremia. Hold amlodipine, may also decrease lower extremity edema. Hold torsemide, gave 08/31 & 09/01 but blood pressure soft (4) Urinary retention: Code(s): R33.9 - Retention of urine, unspecified Status: Acute Assessment and Plan: Kraft catheter in place - Added Flomax 0.4 mg PO daily. --Passed Void trial 08/30 and doing well, with bladder scans (5) Crohn's disease without complication: Qualifiers: Gastrointestinal tract location: unspecified location Qualified Code(s): K50.90 - Crohn's disease, unspecified, without complications Code(s): K50.90 - Crohn's disease, unspecified, without complications Status: Acute Assessment and Plan: - monitor stools, patient concerned for hard stools and no BM for 2 days, but nurses frequently report he's having loose stools. CRP 0.9 --Abdomen distended but nontender and exam benign --Add senna hs (6) Lower back pain: Code(s): M54.50 - Low back pain, unspecified Status: Acute Assessment and Plan: - Acetaminophen PRN (7) Bilateral edema of lower extremity: Code(s): R60.0 - Localized edema Status: Acute Assessment and Plan: With erythema to toes bilaterally, and lower extremity edema bilaterally. Has been getting fluids for hyponatremia --Treatment of hyponatremia as noted --Added Torsemide and fluid restriction for lower extremity edema, some improvement but blood presure soft. Hold torsemide --Recommended elevating feet/legs during the day and overnight. --Follow up with podiatry --Compression stockings when improving (8) Cellulitis of arm, left: Code(s): L03.114 - Cellulitis of left upper limb Status: Acute Assessment and Plan: Local erythema to left arm near at scabbed area, likely puncture site --Seems to be more erythematous today, change keflex to Bactrim and monitor --Also monitor if improvement to erythema of toes but would be unusual to have cellulitis only to the toes and not painful. Needs follow up with podiatry for nails/toes Time Spent With Patient Time: 59 minutes Subjective Date/time seen: 09/01/24 08:01 Interval history: Sodium improving, 126<129<130<131 with fluid restriction and salt tabs. Also some diuresis for lower extremity edema but blood pressure soft this afternoon, 91/42 Overall feeling ok. Would like to go to SNF, accepted
[2024-09-01] MEDS: TAMSULOSIN HCL 0.4 MG CAPSULE PO (10:09)
[2024-09-01] MEDS: MULTIVITAMINS THERAPEUTIC TAB (*BKC) 1 TABLET PO (10:09)
[2024-09-01] MEDS: OMEGA 3 POLYUNSAT FATTY ACIDS 1 GM CAP PO (10:09)
[2024-09-01] MEDS: CYANOCOBALAMIN 1,000 MCG TABLET 5000 MCG PO (10:09)
[2024-09-01] MEDS: FOLIC ACID 0.4 MG TABLET PO (10:09)
[2024-09-01] MEDS: SODIUM CHLORIDE 500 MG TABLET PO ×2 (10:09→17:44)
[2024-09-01] MEDS: TORSEMIDE 10 MG TABLET PO (10:09)
[2024-09-01] MEDS: DOCUSATE SODIUM 100 MG CAPSULE PO (13:24)
[2024-09-01 14:05] VITALS: BP 91/42; PULSE 74; RESP 18; TEMP 36.7; O2SAT 98
[2024-09-01 14:52] LABS: Anion Gap 8 mmol/L (4-12); Blood Urea Nitrogen 18 mg/dL (9-20); Calcium 9.1 mg/dL (8.4-10.2); Carbon Dioxide 29 mmol/L (22-30); Chloride 94 mmol/L (98-107); Estimated CRCL calculation 68 ml/min; Estimated Glomerular Filt Rate > 60; Glucose 121 mg/dL (65-110); Potassium 3.9 mmol/L (3.4-5.0); Sodium 131 mmol/L (137-145)
[2024-09-01] MEDS: SULFAMETHOXAZOLE/TRIMETHOPRIM 800/160 MG DS TABLET 1 TAB PO (17:44)
[2024-09-01 19:53] VITALS: BP 120/58; PULSE 85; RESP 18; TEMP 36.8; O2SAT 99
[2024-09-01] MEDS: SENNA/DOCUSATE SODIUM TABLET 1 TAB PO (20:26)
[2024-09-01] MEDS: ATORVASTATIN 20 MG TABLET BY MOUTH (20:26)
[2024-09-02] MEDS: clonazePAM (*CRX) 0.25 MG TABLET PO (03:14)
[2024-09-02] MEDS: ACETAMINOPHEN 500 MG TABLET PO ×4 (03:14→19:52)
[2024-09-02] MEDS: MELATONIN 5 MG TABLET PO (03:14)
[2024-09-02 04:01] VITALS: BP 141/63; PULSE 84; RESP 16; TEMP 36.5; O2SAT 100
[2024-09-02 06:09] LABS: Basophils Percent Auto 0.4 % (0.2-1.2); Eosinophils Absolute Auto 0.3 K/mm3 (0-0.3); Eosinophils Percent Auto 2.8 % (0-4.4); Hemoglobin 11.6 g/dL (14.0-18.0); Immature Granulocyte Absolute 0.03 K/mm3 (0.00-0.031); Immature Granulocyte Percent A 0.3 % (0-0.5); Lymphocytes Absolute Auto 1.06 K/mm3 (0.9-3.2); Lymphocytes Percent Auto 11.9 % (18.3-44.2); Mean Corpuscular HGB Conc 33.1 g/dl (32-36); Mean Corpuscular Hemoglobin 31.7 pg (26-34); Mean Corpuscular Volume 95.6 fl (80-100); Mean Platelet Volume 8.9 fl (7.4-10.4); Monocytes Absolute Auto 0.8 K/mm3 (0.1-0.6); Monocytes Percent Auto 9.4 % (2.6-8.5); Neutrophils Absolute Auto 6.7 K/mm3 (1.3-6.7); Neutrophils Percent Auto 75.2 % (45.5-73.1); Platelet Count Result 296 k/mm3 (150-375); Red Blood Count 3.66 M/mm3 (4.6-6.20); Red Cell Distribution Width 13.2 % (11.5-14.5); White Blood Count 8.9 K/mm3 (4.5-10.0)
[2024-09-02 06:23] LABS: Anion Gap 6 mmol/L (4-12); Blood Urea Nitrogen 15 mg/dL (9-20); Calcium 8.9 mg/dL (8.4-10.2); Carbon Dioxide 27 mmol/L (22-30); Chloride 95 mmol/L (98-107); Estimated CRCL calculation 68 ml/min; Estimated Glomerular Filt Rate > 60; Glucose 84 mg/dL (65-110); Potassium 3.5 mmol/L (3.4-5.0); Sodium 128 mmol/L (137-145)
--- NOTE | 2024-09-02 09:17 | PM.IMPN ---
Progress Note: A&P Assessment and Plan (1) Hyponatremia: Code(s): E87.1 - Hypo-osmolality and hyponatremia Status: Acute Assessment and Plan: Na 120, improving slowly, 124>122<125 over 3 days with NS@75/hr 08/25 Urine osmo 43, Urine Na 105, Serum osmo 251, serum Na 120 - Continue to follow BMP -Stopped fluids 08/30 -Sodium slightly lower after torsemide and sodium tabs, but improved after additional salt tab and fluid restriction. Patient feels very limited by fluid restriction, increase from 1000ml to 1400ml, up to 2000ml today since blood pressure soft, can reduce again tomorrow instead of given diuretics --Increase sodium tabs to BID, hold diuretics for lower extremity edema (can likely change torsemide to PRN if blood pressure tolerates) 09/02: Na 128 (2) Generalized weakness: Code(s): R53.1 - Weakness Status: Acute Assessment and Plan: Covid RSV Flu swab all negative - Urine culture negative - Blood cultures negative - PT/OT - Orthostatic vital signs q shift. Orthostatics normal 08/27. supine BP 136/65 HR 75, sitting BP 144/70 HR 80, and standing BP 150/75 HR 90. 08/28 99/45, 82/41, 99/45 - Monitor labs. - work with PT/OT (3) Essential hypertension: Code(s): I10 - Essential (primary) hypertension Status: Acute Assessment and Plan: Initially low, 82/41, repeat 99/45 Checking orthostatics q shift. Holding Lisinopril and HCTZ. Would stop HCTZ given significant hyponatremia. Hold amlodipine, may also decrease lower extremity edema. Hold torsemide, gave 08/31 & 09/01 but blood pressure soft 09/02: Blood pressures remain soft, continue to hold (4) Urinary retention: Code(s): R33.9 - Retention of urine, unspecified Status: Acute Assessment and Plan: Kraft catheter in place - Added Flomax 0.4 mg PO daily. --Passed Void trial 08/30 and doing well, with bladder scans (5) Crohn's disease without complication: Qualifiers: Gastrointestinal tract location: unspecified location Qualified Code(s): K50.90 - Crohn's disease, unspecified, without complications Code(s): K50.90 - Crohn's disease, unspecified, without complications Status: Acute Assessment and Plan: - monitor stools, patient concerned for hard stools and no BM for 2 days, but nurses frequently report he's having loose stools. CRP 0.9 --Abdomen distended but nontender and exam benign --Add senna hs (6) Lower back pain: Code(s): M54.50 - Low back pain, unspecified Status: Acute Assessment and Plan: - Acetaminophen PRN (7) Bilateral edema of lower extremity: Code(s): R60.0 - Localized edema Status: Acute Assessment and Plan: With erythema to toes bilaterally, and lower extremity edema bilaterally. Has been getting fluids for hyponatremia --Treatment of hyponatremia as noted --Added Torsemide and fluid restriction for lower extremity edema, some improvement but blood presure soft. Hold torsemide --Recommended elevating feet/legs during the day and overnight. --Follow up with podiatry --Compression stockings when improving (8) Cellulitis of arm, left: Code(s): L03.114 - Cellulitis of left upper limb Status: Acute Assessment and Plan: Local erythema to left arm near at scabbed area, likely puncture site --Seems to be more erythematous today, change keflex to Bactrim and monitor --Also monitor if improvement to erythema of toes but would be unusual to have cellulitis only to the toes and not painful. Needs follow up with podiatry for nails/toes Time Spent With Patient Time with patient: 25 - 35 minutes Subjective Date/time seen: 09/02/24 09:17 Interval history: 84-year-old male with chronic hyponatremia, hypertension, hyperlipidemia, aortic stenosis, sick sinus syndrome status post dual chamber pacemaker implantation, and Crohn's disease who presented to the emergency department for evaluation of weakness.
[2024-09-02] MEDS: CYANOCOBALAMIN 1,000 MCG TABLET 5000 MCG PO (09:54)
[2024-09-02] MEDS: MULTIVITAMINS THERAPEUTIC TAB (*BKC) 1 TABLET PO (09:54)
[2024-09-02] MEDS: OMEGA 3 POLYUNSAT FATTY ACIDS 1 GM CAP PO (09:54)
[2024-09-02] MEDS: FOLIC ACID 0.4 MG TABLET PO (09:55)
[2024-09-02] MEDS: SODIUM CHLORIDE 500 MG TABLET PO ×2 (09:55→17:40)
[2024-09-02] MEDS: SULFAMETHOXAZOLE/TRIMETHOPRIM 800/160 MG DS TABLET 1 TAB PO ×2 (09:55→19:52)
[2024-09-02] MEDS: TAMSULOSIN HCL 0.4 MG CAPSULE PO (09:55)
[2024-09-02 14:00] VITALS: BP 96/52; PULSE 66; RESP 16; TEMP 36.2; O2SAT 96
[2024-09-02] MEDS: ATORVASTATIN 20 MG TABLET BY MOUTH (19:52)
[2024-09-02] MEDS: SENNA/DOCUSATE SODIUM TABLET 1 TAB PO (19:52)
[2024-09-02 20:56] VITALS: BP 120/69; PULSE 67; RESP 18; TEMP 36.8; O2SAT 98
[2024-09-03] MEDS: MELATONIN 5 MG TABLET PO (03:07)
[2024-09-03] MEDS: ACETAMINOPHEN 500 MG TABLET PO ×3 (03:07→15:06)
[2024-09-03] MEDS: clonazePAM (*CRX) 0.25 MG TABLET PO (03:08)
[2024-09-03 06:00] VITALS: BP 148/91; PULSE 69; RESP 18; TEMP 36.8; O2SAT 100
[2024-09-03 07:15] LABS: Basophils Percent Auto 0.3 % (0.2-1.2); Eosinophils Absolute Auto 0.3 K/mm3 (0-0.3); Hematocrit 34.1 % (42.0-52.0); Hemoglobin 11.3 g/dL (14.0-18.0); Immature Granulocyte Absolute 0.03 K/mm3 (0.00-0.031); Immature Granulocyte Percent A 0.5 % (0-0.5); Lymphocytes Absolute Auto 1.14 K/mm3 (0.9-3.2); Lymphocytes Percent Auto 17.5 % (18.3-44.2); Mean Corpuscular HGB Conc 33.1 g/dl (32-36); Mean Corpuscular Hemoglobin 31.7 pg (26-34); Mean Corpuscular Volume 95.8 fl (80-100); Mean Platelet Volume 8.9 fl (7.4-10.4); Monocytes Absolute Auto 0.6 K/mm3 (0.1-0.6); Monocytes Percent Auto 8.8 % (2.6-8.5); Neutrophils Absolute Auto 4.5 K/mm3 (1.3-6.7); Neutrophils Percent Auto 68.9 % (45.5-73.1); Platelet Count Result 280 k/mm3 (150-375); Red Blood Count 3.56 M/mm3 (4.6-6.20); Red Cell Distribution Width 13.2 % (11.5-14.5); White Blood Count 6.5 K/mm3 (4.5-10.0)
[2024-09-03 07:23] LABS: Anion Gap 4 mmol/L (4-12); Blood Urea Nitrogen 12 mg/dL (9-20); Calcium 8.7 mg/dL (8.4-10.2); Carbon Dioxide 29 mmol/L (22-30); Chloride 96 mmol/L (98-107); Estimated CRCL calculation 68 ml/min; Estimated Glomerular Filt Rate > 60; Glucose 84 mg/dL (65-110); Potassium 3.8 mmol/L (3.4-5.0); Sodium 129 mmol/L (137-145)
--- NOTE | 2024-09-03 08:34 | PM.IMPN ---
Progress Note: A&P Assessment and Plan (1) Hyponatremia: Code(s): E87.1 - Hypo-osmolality and hyponatremia Status: Acute Assessment and Plan: Na 120, improving slowly, 124>122<125 over 3 days with NS@75/hr 08/25 Urine osmo 43, Urine Na 105, Serum osmo 251, serum Na 120 - Continue to follow BMP -Stopped fluids 08/30 -Sodium slightly lower after torsemide and sodium tabs, but improved after additional salt tab and fluid restriction. Patient feels very limited by fluid restriction, increase from 1000ml to 1400ml, up to 2000ml today since blood pressure soft, can reduce again tomorrow instead of given diuretics --Increase sodium tabs to BID, hold diuretics for lower extremity edema (can likely change torsemide to PRN if blood pressure tolerates) 09/03: Na 129 (2) Generalized weakness: Code(s): R53.1 - Weakness Status: Acute Assessment and Plan: Covid RSV Flu swab all negative - Urine culture negative - Blood cultures negative - PT/OT - Orthostatic vital signs q shift. Orthostatics normal 08/27. supine BP 136/65 HR 75, sitting BP 144/70 HR 80, and standing BP 150/75 HR 90. 08/28 99/45, 82/41, 99/45 - Monitor labs. - work with PT/OT (3) Essential hypertension: Code(s): I10 - Essential (primary) hypertension Status: Acute Assessment and Plan: Initially low, 82/41, repeat 99/45 Checking orthostatics q shift. Holding Lisinopril and HCTZ. Would stop HCTZ given significant hyponatremia. Hold amlodipine, may also decrease lower extremity edema. Hold torsemide, gave 08/31 & 09/01 but blood pressure soft 09/02: Blood pressures remain soft, continue to hold (4) Urinary retention: Code(s): R33.9 - Retention of urine, unspecified Status: Acute Assessment and Plan: Kraft catheter in place - Added Flomax 0.4 mg PO daily. --Passed Void trial 08/30 and doing well, with bladder scans (5) Crohn's disease without complication: Qualifiers: Gastrointestinal tract location: unspecified location Qualified Code(s): K50.90 - Crohn's disease, unspecified, without complications Code(s): K50.90 - Crohn's disease, unspecified, without complications Status: Acute Assessment and Plan: - monitor stools, patient concerned for hard stools and no BM for 2 days, but nurses frequently report he's having loose stools. CRP 0.9 --Abdomen distended but nontender and exam benign --Add senna hs (6) Lower back pain: Code(s): M54.50 - Low back pain, unspecified Status: Acute Assessment and Plan: - Acetaminophen PRN (7) Bilateral edema of lower extremity: Code(s): R60.0 - Localized edema Status: Acute Assessment and Plan: With erythema to toes bilaterally, and lower extremity edema bilaterally. Has been getting fluids for hyponatremia --Treatment of hyponatremia as noted --Added Torsemide and fluid restriction for lower extremity edema, some improvement but blood presure soft. Hold torsemide --Recommended elevating feet/legs during the day and overnight. --Follow up with podiatry --Compression stockings when improving (8) Cellulitis of arm, left: Code(s): L03.114 - Cellulitis of left upper limb Status: Acute Assessment and Plan: Local erythema to left arm near at scabbed area, likely puncture site --Seems to be more erythematous today, change keflex to Bactrim and monitor --Also monitor if improvement to erythema of toes but would be unusual to have cellulitis only to the toes and not painful. Needs follow up with podiatry for nails/toes Subjective Date/time seen: 09/03/24 08:34 Interval history: 84-year-old male with chronic hyponatremia, hypertension, hyperlipidemia, aortic stenosis, sick sinus syndrome status post dual chamber pacemaker implantation, and Crohn's disease who presented to the emergency department for evaluation of weakness. Review of Systems Review of Systems: All systems rev
[2024-09-03] MEDS: SULFAMETHOXAZOLE/TRIMETHOPRIM 800/160 MG DS TABLET 1 TAB PO (08:50)
[2024-09-03] MEDS: MULTIVITAMINS THERAPEUTIC TAB (*BKC) 1 TABLET PO (08:50)
[2024-09-03] MEDS: SODIUM CHLORIDE 500 MG TABLET PO (08:50)
[2024-09-03] MEDS: polyethylene glycoL 3350 17 GM POWD.PACK PO (08:50)
[2024-09-03] MEDS: TAMSULOSIN HCL 0.4 MG CAPSULE PO (08:50)
[2024-09-03] MEDS: FOLIC ACID 0.4 MG TABLET PO (08:50)
[2024-09-03] MEDS: OMEGA 3 POLYUNSAT FATTY ACIDS 1 GM CAP PO (08:50)
[2024-09-03] MEDS: CYANOCOBALAMIN 1,000 MCG TABLET 5000 MCG PO (08:50)
--- NOTE | 2024-09-03 09:45 | PCNWS ---
Weekly nutritional screen. Patient is tolerating current diet with adequate intake. No weight loss reported. No nutritional needs at this time.
[2024-09-03 14:00] VITALS: BP 107/51; PULSE 66; RESP 16; TEMP 36.3; O2SAT 97
[2024-09-03] MEDS: TORSEMIDE 10 MG TABLET PO (15:06)
--- NOTE | 2024-09-03 17:15 | PM.DS ---
DS: Admitting Diagnosis Discharge Date 09/03/24 Admitting Diagnosis hyponatremia Generalized weakness essential hypertension urinary retention Crohn's disease lower back pain bilateral edema of the lower extremity cellulitis of the arm DS: Discharge Diagnosis Discharge Diagnosis (1) Hyponatremia: Code(s): E87.1 - Hypo-osmolality and hyponatremia Status: Acute (2) Generalized weakness: Code(s): R53.1 - Weakness Status: Acute (3) Essential hypertension: Code(s): I10 - Essential (primary) hypertension Status: Acute (4) Urinary retention: Code(s): R33.9 - Retention of urine, unspecified Status: Acute (5) Crohn's disease without complication: Qualifiers: Gastrointestinal tract location: unspecified location Qualified Code(s): K50.90 - Crohn's disease, unspecified, without complications Code(s): K50.90 - Crohn's disease, unspecified, without complications Status: Acute (6) Lower back pain: Code(s): M54.50 - Low back pain, unspecified Status: Acute (7) Bilateral edema of lower extremity: Code(s): R60.0 - Localized edema Status: Acute (8) Cellulitis of arm, left: Code(s): L03.114 - Cellulitis of left upper limb Status: Acute DS: Summary Hospital Course Reason for hospitalization: hyponatremia Generalized weakness essential hypertension urinary retention Crohn's disease lower back pain bilateral edema of the lower extremity cellulitis of the arm Hospital Course: 84-year-old male with chronic hyponatremia, hypertension, hyperlipidemia, aortic stenosis, sick sinus syndrome status post dual chamber pacemaker implantation, and Crohn's disease who presented to the emergency department for evaluation of weakness. Patient had a sodium of 120 on admission. He was started on IV fluids with little improvement. Urine osmo 43, Urine Na 105, Serum osmo 251, serum Na 120. Patient was started on salt tabs and a fluid restriction as well as torsemide which increased his sodium to ranging from 129-131. Given that patient was started on toresemide and his blood pressures were running slightly low his other antihypertensives have been placed on hold. He is to follow up with his PCP in regards to resuming these. Patient was noted to have some urinary retention during admission requiring a watson catheter be placed. A voiding trial was obtained after starting patient on flomax and was successful. Urine and blood cultures were negative. Patient had slight weakness on admission. Viral panel was negative. He continued to work with PT/OT who recommended home health at time of discharge. He was noted to have mild lower extremity edema. Venous dopplers were negative. This improved with elevation. Patient had cellulitis to his left arm around his wrist with erythema. He was started on antibiotics and this improved during admission. Prior to discharge patient had no complaints, denying chest pain, shortness of breath, nausea/vomiting and abdominal pain. Prior to discharge discussed patient with Dr. Caldera who agreed with the continued fluid restriction, salt tabs, resuming the toresimde and obtaining a CMP to reevaluate Na levels. Patient discharged home with home health in a stable condition. He is to obtain a blood draw in 3 days to re-evaluate his sodium and follow up with his primary care provider in 1 week. Status at Discharge Functional status at discharge: uses cane/walker Time Spent with Patient Time attestation: Total time spent providing and/or coordinating discharge services: Time spent: Greater than 30 minutes Exam Narrative: AF HR 66 RR 16 SpO2 97 BP 107/51 General: male in no acute respiratory distress who is nontoxic appearing, sitting up in his chair HEENT: Normocephalic. Atraumatic. Extraocular movement intact. . No facial asymmetry. Chest: Lungs are clear to auscultation bilaterally. No wheezes or crackle
== END 2024-09-03 16:03 | disposition home health service (06) | DRG 641 ==
LOC: ANHED 10:52 → ANH3MED 12:14
PROVIDERS: Nurse Practitioner Acute Care; Nurse Practitioner Family; Physician Assistant; Admitting Provider General Practice; Emergency Provider Emergency Medicine; PCP Family Medicine; Visit Provider Student in an Organized Health Care Education/Training Program
DX: E87.1 Hypo-osmolality and hyponatremia (principal); K50.90 Crohn's disease, unspecified, without complications; L03.114 Cellulitis of left upper limb; I10 Essential (primary) hypertension; I49.5 Sick sinus syndrome; I95.9 Hypotension, unspecified; E78.2 Mixed hyperlipidemia; R33.9 Retention of urine, unspecified; M47.26 Other spondylosis with radiculopathy, lumbar region; M54.50 Low back pain, unspecified; M48.061 Spinal stenosis, lumbar region without neurogenic claudication; R60.0 Localized edema; S41.132A Puncture wound without foreign body of left upper arm, initial encounter; W19.XXXD Unspecified fall, subsequent encounter; Z20.822 Contact with and (suspected) exposure to COVID-19; S42.202D Unspecified fracture of upper end of left humerus, subsequent encounter for fracture with routine healing; Z86.0101 Personal history of adenomatous and serrated colon polyps; Z95.0 Presence of cardiac pacemaker; Z85.46 Personal history of malignant neoplasm of prostate; Z98.1 Arthrodesis status; Z87.891 Personal history of nicotine dependence
CPT/HCPCS: 36415; 71046; 80048; 80053; 81001; 82570; 82948; 83735; 83930; 83935; 84295; 84300; 84443; 84540; 85025; 85027; 85652; 86140; 87040; 87086; 87637; 93005; 93970; 96365; 97110; 97116; 97161; 97166; 97530; 97535; 99285; A9270; G0378; J7030

== ENCOUNTER 2024-09-04 11:02 | Emergency (ER) | payer MEDICARE, SELFPAY ==
--- NOTE | ~2024-09-04 | XR_ITS ---
EXAMINATION: XR chest 2V DATE: 09/04/2024 12:29 INDICATION: Weakness. Fall. TECHNIQUE: Frontal and lateral views of the chest were obtained. COMPARISON: Chest 2 views 08/25/2024 FINDINGS: There is no pneumonia, pleural effusion, or pneumothorax. The heart size is normal. There i s a left chest wall pacer with leads in the right atrium and right ventricle. IMPRESSION: 1. No acute cardiopulmonary disease. Reviewed, dictated and finalized at location A.
--- NOTE | 2024-09-04 11:13 | ECG_ITS ---
Test Date: 2024-09-04 11:17:35 Measurements Intervals [place] Rate: 61 P: 42 MT: 259 QRS: -81 QRSD: 186 T: 97 QT: 488 QTc: 493 Interpretive Statements NORMAL SINUS RHYTHM WITH ATRIAL SENSING AND ELECTRONIC VENTRICULAR PACEMAKER ABNORMAL RHYTHM ECG Compared to ECG 08/25/2024 08:12:50 Atrial-paced complex(es) or rhythm no longer present Electronically Signed On 09-05-2024 07:45:19 CDT by Sam Bruno M.D.
[2024-09-04 11:55] LABS: Basophils Percent Auto 0.3 % (0.2-1.2); Eosinophils Absolute Auto 0.3 K/mm3 (0-0.3); Eosinophils Percent Auto 3.8 % (0-4.4); Hematocrit 35.6 % (42.0-52.0); Immature Granulocyte Absolute 0.02 K/mm3 (0.00-0.031); Immature Granulocyte Percent A 0.3 % (0-0.5); Lymphocytes Absolute Auto 0.99 K/mm3 (0.9-3.2); Lymphocytes Percent Auto 15.1 % (18.3-44.2); Mean Corpuscular HGB Conc 33.7 g/dl (32-36); Mean Corpuscular Hemoglobin 32.7 pg (26-34); Mean Platelet Volume 8.9 fl (7.4-10.4); Monocytes Absolute Auto 0.9 K/mm3 (0.1-0.6); Monocytes Percent Auto 13.1 % (2.6-8.5); Neutrophils Absolute Auto 4.4 K/mm3 (1.3-6.7); Neutrophils Percent Auto 67.4 % (45.5-73.1); Platelet Count Result 306 k/mm3 (150-375); Red Blood Count 3.67 M/mm3 (4.6-6.20); Red Cell Distribution Width 13.3 % (11.5-14.5); White Blood Count 6.5 K/mm3 (4.5-10.0)
[2024-09-04 12:04] LABS: Alanine Aminotransferase 31 U/L (6-50); Albumin Level 3.8 g/dL (3.5-5.1); Alkaline Phosphatase 133 U/L (38-126); Anion Gap 5 mmol/L (4-12); Aspartate Amino Transferase 38 U/L (17-59); Bilirubin,Total 0.6 mg/dL (0.2-1.3); Blood Urea Nitrogen 13 mg/dL (9-20); Calcium 9.1 mg/dL (8.4-10.2); Carbon Dioxide 29 mmol/L (22-30); Chloride 96 mmol/L (98-107); Estimated Glomerular Filt Rate > 60; Glucose 92 mg/dL (65-110); Sodium 130 mmol/L (137-145)
[2024-09-04 13:42] VITALS: BP 131/70; PULSE 60; RESP 14; TEMP 36.4; O2SAT 100
[2024-09-04 14:07] LABS: Add Urine Microscopic? NO; Appearance Urine Clear (Clear); Bilirubin Urine Negative (Negative); Blood Urine Negative (Negative); Color Urine Yellow (Yellow); Glucose Urine UA Negative (Negative); Ketones Urine Negative (Negative); Leukocyte Esterase Ur Negative LEU/UL (Negative); Nitrate Urine Negative (Negative); Protein Urine Negative (Negative); Specific Grav Ur 1.011 (1.001-1.035)
--- NOTE | 2024-09-04 14:09 | PCCCNOTE ---
1409-Called to the ED d/t the pt having been noted to go to [facility] from last discharge. Spoke to the family. Stated the auth was negated d/t doing, too well and having walked too far not qualifying for SNF. Stated they discharged to home where he fell. Stated he can't remember what happened, his stated she got him 1/2 a sodium tab and he came to then returning to the ED For f/u care. ED provider updated on the status.-gio.
--- NOTE | 2024-09-04 14:19 | ED.FALL ---
HPI - Fall General Chief Complaint: Fall Stated Complaint: fall Time Seen by Provider: 09/04/24 13:24 Source: patient Mode of arrival: EMS Limitations: no limitations History of Present Illness HPI Narrative: This is an 84-year-old male, discharged from this facility yesterday for hyponatremia, who returns complaining of a fall at home. The patient states while here, his sodium improved with salt tablets. He was seen by Physical therapy and Occupational therapy with initial recommendation to for discharge to an assisted living facility at [facility]. However, something change in the patient was discharged home. The patient is not tired sure what happened. He states he has been able to walk using rales and sport on the wall, though this morning fell. He denies head injury or loss of consciousness. He denies change or difficulty of speech. His states he had somewhat slowed speech and was given a salt tablet with improvement. He complains of chronic left shoulder pain and reduced mobility but has no other complaints at this time. Related Data Home Medications Medication Instructions Recorded Confirmed biotin 5,000 mcg disintegrating 10,000 mcg PO DAILY 12/17/19 08/25/24 tablet coenzyme Q10 100 mg capsule (Co 100 mg PO DAILY 12/17/19 08/25/24 Q-10) cyanocobalamin (vitamin B-12) 5,000 mcg PO DAILY 12/17/19 08/25/24 5,000 mcg capsule folic acid 400 mcg tablet 0.4 mg PO DAILY 12/17/19 08/25/24 hydrochlorothiazide 25 mg tablet 25 mg PO DAILY 12/17/19 08/25/24 lisinopril 40 mg tablet 40 mg PO DAILY 12/17/19 08/25/24 melatonin 5 mg capsule 5 mg PO DAILY 12/17/19 08/25/24 multivitamin 1 tablet PO DAILY 12/17/19 08/25/24 omega-3 fatty acids 1,000 mg 1,000 mg PO DAILY 12/17/19 08/25/24 capsule (Fish Oil Concentrate) docusate sodium 100 mg capsule 100 mg PO DAILY PRN Constipation 10/14/22 08/25/24 (Colace) ondansetron HCl 4 mg tablet 4 mg PO Q8H PRN Nasuea 10/14/22 08/25/24 mqxpblvo-hfyjhienybn-fcah 1 applic topical DAILY PRN Dry Skin 05/08/24 08/25/24 tree-stearyl alcohol topical cream (Cetaphil Hand topical cream) trazodone 50 mg tablet 25 mg PO QHS insomnia 05/08/24 08/25/24 Allergies Allergy/AdvReac Type Severity Reaction Status Date / Time No Known Drug Allergies Allergy Unknown Unknown Verified 08/25/24 13:03 Review of Systems Review of Systems: All systems reviewed & are unremarkable except as noted in HPI and below PMFSH Past Medical History Medical History Adenomatous colon polyp Aortic stenosis Crohn's disease without complication Essential hypertension Mixed hyperlipidemia Nasal polyps Nicotine dependence, other tobacco product, in remission Osteoarthritis of spine with radiculopathy, lumbar region Prostate cancer Sick sinus syndrome (03/05/15) Status post [employer] dual chamber permanent pacemaker placement. Spinal stenosis of lumbar region at multiple levels Surgical History Surgical History History of cataract extraction History of permanent cardiac pacemaker placement History of prostatectomy History of spinal fusion History of transurethral resection of prostate Family History Family History Mother Family history of Alzheimer's disease Father Family history of osteoporosis Malignant neoplasm of prostate Social History Social History Social History: Surrogate medical decision maker: Aliza Saha, spouse. Code status: Full code. Years smoked: 40 Smoking status: Never smoker Tobacco type: pipe Second hand tobacco smoke exposure: Yes Smoking end date: 12/05/18 Alcohol intake: never Alcohol use details: rarely Substance use: never Substance use type: does not use Do You Feel Safe in your Home?: Yes Lack of Transportation: No
--- NOTE | 2024-09-04 14:26 | PCCCNOTE ---
1426-Called [facility] at [phone] and spoke to Annabelle. Stated she would check to see if they still had an available bed. Pt is interested in going there for SNF services and the auth# was shared from the last hospitalization. Stated she will call this CM back with f/u on available of admission. states if possibly they will transport via personal vehicle.-gio.
[2024-09-04 14:54] VITALS: BP 130/66; PULSE 64; RESP 16; O2SAT 99
--- NOTE | 2024-09-04 15:17 | PCCCNOTE ---
1517-Spoke with Annabelle with [facility]. Stated they will still accept the pt, please send a med list and have the nurse call report to the [address] [place] [address]. Pt will be in room 509. Pt and provider are agreeable with the plan-djk.
[2024-09-04 15:18] VITALS: BP 152/65; PULSE 61; RESP 16; O2SAT 99
[2024-09-04 15:51] VITALS: BP 128/64; PULSE 69; RESP 20; TEMP 36.6; O2SAT 100
== END 2024-09-04 15:52 ==
PROVIDERS: Emergency Medicine; Emergency Provider Preventive Medicine Aerospace Medicine; PCP Family Medicine
DX: E87.1 Hypo-osmolality and hyponatremia (principal); M25.512 Pain in left shoulder; G89.29 Other chronic pain; I35.0 Nonrheumatic aortic (valve) stenosis; I10 Essential (primary) hypertension; I49.5 Sick sinus syndrome; E78.2 Mixed hyperlipidemia; K50.90 Crohn's disease, unspecified, without complications; M47.26 Other spondylosis with radiculopathy, lumbar region; M48.061 Spinal stenosis, lumbar region without neurogenic claudication; Z98.1 Arthrodesis status; Z98.49 Cataract extraction status, unspecified eye; Z95.0 Presence of cardiac pacemaker; Z85.46 Personal history of malignant neoplasm of prostate; Z87.891 Personal history of nicotine dependence; Z86.0101 Personal history of adenomatous and serrated colon polyps; Z90.79 Acquired absence of other genital organ(s); Z79.899 Other long term (current) drug therapy; W18.30XA Fall on same level, unspecified, initial encounter
CPT/HCPCS: 36415; 71046; 80053; 81003; 85025; 93005; 99283

== ENCOUNTER 2024-09-09 20:58 | Observation (INO) | payer MEDICARE, SELFPAY ==
--- NOTE | ~2024-09-09 | CT_ITS ---
EXAMINATION: CT brain wo con DATE: 09/09/2024 21:52 INDICATION: Head injury. Syncope. TECHNIQUE: Computed tomography (CT) of the head was performed without intravenous contrast. The mA wa s adjusted according to patient size. Iterative reconstruction technique was employed. The dose-lengt h product was 681.00 mGy-cm. COMPARISON: Head CT 08/20/2024 FINDINGS: There are scattered areas of low attenuation in the cerebral white matter. There is no intr acranial hemorrhage, acute infarction, or abnormal intracranial mass lesion. The ventricles are volodymyr l in size. There are likely changes of ocular lens replacement surgeries. There is mucosal thickening in the paranasal sinuses. There is a small left mastoid effusion. There is a left scalp laceration. IMPRESSION: 1. Stable extensive nonspecific cerebral white matter disease, which likely represents chronic small vessel ischemic disease. Reviewed, dictated and finalized at location A. IMPRESSION: 1. Stable extensive nonspecific cerebral white matter disease, which likely rep resents chronic small vessel ischemic disease.
--- NOTE | ~2024-09-09 | XR_ITS ---
EXAMINATION: XR hand LT 2V DATE: 09/11/2024 12:49 INDICATION: Left hand pain and swelling. TECHNIQUE: 2 views of left hand were obtained. COMPARISON: None. FINDINGS: Alignment is normal. No fracture. There is severe osteoarthritis of first carpometacarpal j oint, moderate osteoarthritis of second metacarpophalangeal joint, and mild osteoarthritis of most of the interphalangeal joints. There is moderate osteoarthritis of first interphalangeal joint. IMPRESSION: 1. Polyarticular osteoarthritis. Reviewed, dictated and finalized at location A.
--- NOTE | ~2024-09-09 | CT_ITS ---
EXAMINATION: CT lumbar spine wo con DATE: 09/09/2024 21:53 INDICATION: Low back pain. TECHNIQUE: Computed tomography (CT) of the lumbar spine was performed without intravenous contrast. A utomated exposure control and iterative reconstruction technique were employed. The dose-length produ ct was 442.37 mGy-cm. COMPARISON: Lumbar spine CT 05/09/2017 FINDINGS: There is 10 degrees dextroscoliosis of thoracolumbar spine. There are changes of anterior a nd posterior fusion procedures from L4 to S1 with interbody devices and pedicle screws. There is mild chronic anterior wedging of T12 and L1 vertebral bodies. There is mildly decreased disc height at T1 1-T12 severely decreased disc height from L1-L2 through L3-L4. The following disc levels are specific ally discussed: L1-L2: The disc is bulging. There is severe bilateral facet joint osteoarthritis. There is mild right and moderate left neural foraminal stenosis. There is mild central canal stenosis. L2-L3: The disc is bulging. There is severe right and mild left facet joint osteoarthritis. There is mild bilateral neural foraminal stenosis. There is mild central canal stenosis. L3-L4: The disc is bulging. There is severe bilateral facet joint osteoarthritis. There is mild later al neural foraminal stenosis. There is mild central canal stenosis. L4-L5: There is mild right facet joint hypertrophy. There is mild right and moderate left neural fora maritza stenosis. There is mild central canal stenosis. There is posterior decompression. L5-S1: There is no facet joint hypertrophy. There is no neural foraminal stenosis. There is no centra l canal stenosis. There is posterior decompression. IMPRESSION: 1. Severe lumbar spondylosis. 2. Anterior and posterior fusion procedures from L4 to S1. 3. Thoracolumbar dextroscoliosis. Reviewed, dictated and finalized at location A.
--- NOTE | ~2024-09-09 | CT_ITS ---
EXAMINATION: CT cervical spine wo con DATE: 09/09/2024 21:53 INDICATION: Head injury. TECHNIQUE: Computed tomography (CT) of the cervical spine was performed without intravenous contrast. Automated exposure control and iterative reconstruction technique were employed. The dose-length pro duct was 458.77 mGy-cm. COMPARISON: CT cervical spine 08/20/2024 FINDINGS: There is 5 degrees levocurvature of cervical spine. There is 2 mm anterolisthesis of C3 on C4 and C7 on T1. Vertebral body heights are normal. There is severely decreased disc height from C3-C 4 through 3 7-T1. The following disc levels are specifically discussed: C2-C3: There is severe right and moderate left uncovertebral joint osteoarthritis. There is severe bi lateral facet joint osteoarthritis. There is mild bilateral neural foraminal stenosis. There is no ce ntral canal stenosis. C3-C4: There is severe bilateral uncovertebral joint osteoarthritis. There is severe bilateral facet joint osteoarthritis. There is mild right and moderate left neural foraminal stenosis. There is mild central canal stenosis. C4-C5: There is ankylosis of the uncovertebral joints with severe hypertrophy. There is mild left fac et joint osteoarthritis. There is ankylosis of right facet joint with moderate hypertrophy. There is moderate right and mild left neural foraminal stenosis. There is mild central canal stenosis. C5-C6: There is severe bilateral uncovertebral joint osteoarthritis. There is severe bilateral facet joint osteoarthritis. There is moderate right and mild left neural foraminal stenosis. There is mild central canal stenosis. C6-C7: There is severe bilateral uncovertebral joint osteoarthritis. There is severe bilateral facet joint osteoarthritis. There is mild bilateral neural foraminal stenosis. There is mild central canal stenosis. C7-T1: There is severe right and mild left uncovertebral joint osteoarthritis. There is severe bilate ral facet joint osteoarthritis. There is mild bilateral neural foraminal stenosis. There is mild cent ral canal stenosis. IMPRESSION: 1. No fracture. 2. Severe cervical spondylosis. Reviewed, dictated and finalized at location A.
--- NOTE | ~2024-09-09 | XR_ITS ---
EXAMINATION: XR chest 2V DATE: 09/09/2024 21:57 INDICATION: Syncope. TECHNIQUE: Frontal and lateral views of the chest were obtained. COMPARISON: Chest 2 views 09/04/2024 FINDINGS: There is no pneumonia, pleural effusion, or pneumothorax. The heart size is normal. There i s a left chest wall pacer with leads in the right atrium and right ventricle. There are changes of po sterior fusion procedure in lumbar spine. IMPRESSION: 1. No acute cardiopulmonary disease. Reviewed, dictated and finalized at location A.
[2024-09-09 20:57] VITALS: BP 143/72; PULSE 69; RESP 18; TEMP 36.2; O2SAT 99
--- NOTE | 2024-09-09 21:09 | ECG_ITS ---
Test Date: 2024-09-09 21:22:06 Measurements Intervals [place] Rate: 65 P: 92 IL: 261 QRS: -79 QRSD: 190 T: 93 QT: 468 QTc: 490 Interpretive Statements ELECTRONIC VENTRICULAR PACEMAKER SINUS RHYTHM Compared to ECG 09/04/2024 11:17:35 NO SIGNIFICANT CHANGES Electronically Signed On 09-10-2024 12:19:06 CDT by Glenroy Kaufman M.D.
--- NOTE | 2024-09-09 21:27 | ED_ITS ---
HPI - Fall General Chief Complaint: Fall <AIDAN Rea Last Filed: 09/10/24 03:02> Stated Complaint: fall, lac to side of head <AIDAN Rea Last Filed: 09/10/24 03:02> Time Seen by Provider: 09/09/24 21:04 <AIDAN Rea Last Filed: 09/10/24 03:02> Source: patient <AIDAN Rea Last Filed: 09/10/24 03:02> Mode of arrival: EMS <AIDAN Rea Last Filed: 09/10/24 03:02> Limitations: dementia <AIDAN Rea Last Filed: 09/10/24 03:02> History of Present Illness HPI Narrative: Patient is an 84-year-old male, with past medical history of HTN, hx of sick sinus syndrome s/p pacemaker placement, who presents to the ED via EMS with report of a fall. Patient is currently residing at [facility] for rehab after being admitted here 08/25-09/03 for weakness, hyponatremia. Per senior living report, patient had a fall tonight. He did hit his head and sustained 2 small lacerations to his left temporal region. Patient is unable to tell me how the fall occurred. He states he does not remember anything. He does not remember feeling dizzy or lightheaded. Unsure if he lost consciousness. He is not on any anticoagulation. Tetanus UTD as of 2021 per records. Complains of pain to his lower back, though states this is a chronic issue for him. Denies cp, sob, abd pain. <AIDAN Rea Last Filed: 09/10/24 03:02> Related Data Home Medications: Home Medications Medication Instructions Recorded Confirmed biotin 5,000 mcg disintegrating 10,000 mcg PO DAILY 12/17/19 09/10/24 tablet cyanocobalamin (vitamin B-12) 5,000 mcg PO DAILY 12/17/19 09/10/24 5,000 mcg capsule folic acid 400 mcg tablet 0.4 mg PO DAILY 12/17/19 09/10/24 melatonin 5 mg capsule 5 mg PO HS 12/17/19 09/10/24 multivitamin 1 tablet PO DAILY 12/17/19 09/10/24 omega-3 fatty acids 1,000 mg 1,000 mg PO DAILY 12/17/19 09/10/24 capsule (Fish Oil Concentrate) docusate sodium 100 mg capsule 100 mg PO DAILY PRN Constipation 10/14/22 09/10/24 (Colace) ondansetron HCl 4 mg tablet 4 mg PO Q8H PRN Nausea/vomiting 10/14/22 09/10/24 trazodone 50 mg tablet 25 mg PO QHS insomnia 05/08/24 09/10/24 atorvastatin 20 mg tablet 20 mg PO DAILY 09/10/24 09/10/24 flaxseed oil 1,000 mg capsule 1,000 mg PO DAILY 09/10/24 09/10/24 vit Y-wgmxdgqm-xdckdhnqfqx lotion 1 applic topical DAILY PRN Dry Skin 09/10/24 09/10/24 (Cetaphil Moisturizing lotion) <Bonnie Sandra PA-C - Last Filed: 09/10/24 03:02> Allergies/Adverse Reactions: Allergies Allergy/AdvReac Type Severity Reaction Status Date / Time No Known Drug Allergies Allergy Unknown Unknown Verified 09/10/24 02:46 <Bonnie Sandra PA-C - Last Filed: 09/10/24 03:02> Review of Systems Review of Systems: All systems reviewed & are unremarkable except as noted in HPI. <Bonnie Sandra PA-C - Last Filed: 09/10/24 03:02> All systems reviewed & are unremarkable except as noted in HPI and below <Bonnie Sandra PA-C - Last Filed: 09/10/24 03:02> FOR[facility]LY [facility] Past Medical History Medical History: Medical History Adenomatous colon polyp Aortic stenosis Crohn's disease without complication Essential hypertension Mixed hyperlipidemia Nasal polyps Nicotine dependence, other tobacco product, in remission Osteoarthritis of spine with radiculopathy, lumbar region Prostate cancer Sick sinus syndrome (03/05/15) Status post [facility] [employer] dual chamber permanent pacemaker placement. Spinal stenosis of lumbar region at multiple levels <Bonnie Sandra PA-C - Last Filed: 09/10/24 03:02> Surgical History Surgical History: Surgical History History of cataract extraction History of permanent cardiac pacemaker placement History of prostatectomy History of spinal fusion History of transurethral resection of prostate <Bonnie Sandra PA-C - Last Filed: 09/10/24 03:02> Family History Family History: Family History Mother Family history of Alzheimer's disease Father Family history of osteoporosis Malignant neoplasm of prostate <Bonnie Sandra PA-C - Last Filed: 09/10/24 03:02> Social History Social History: Social History Social History: Surrogate medical decision maker: Aliza Saha, spouse. Code status: Full code. Years smoked: 40 Smoking status: Former smoker Tobacco type: pipe Second hand tobacco smoke exposure: Yes Smoking end date: 12/05/18 Alcohol intake: never Alcohol use details: rarely Substance use: never Substance use type: does not use Do You Feel Safe in your Home?: Yes Lack of Transportation: No Lack of Food: Never True Current Housing: I Have Housing Concerned About Future Housing: No Difficulty Paying Gas/Electric Bills: No Difficulty Paying for Meds: No Currently Unemployed: No Education: Master's Degree or Higher Difficulty w/ Childcare or Family Care: No Living arrangements: with family Additional living arrangements comments: Lives with spouse in [place]. 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 Spiritual care concerns: No <Bonnie Sandra PA-C - Last Filed: 09/10/24 03:02> Exam Narrative: GENERAL: Elderly but well appearing, well-nourished, non-toxic, in no acute distress. HEAD: Normocephalic. Contusion to L temporal region. 2 small lacerations to lateral periorbital region. Minimal active bleeding. EYES: PERRL/EOMI, conjunctiva clear NECK: No significant midline spinal tenderness. RESPIRATORY: Airway patent, respirations nonlabored. Clear to auscultation bilaterally, no rales, rhonchi, wheezing. CARDIOVASCULAR: Regular rate and rhythm without murmurs, rubs, or gallops. ABDOMINAL: Soft, nontender, nondistended. Normoactive BS. Large ventral wall hernia evident with straining, no evidence of strangulation. MUSCULOSKELETAL: Moves all extremities. No gross deformities. SKIN: Warm, dry, normal color. NEURO: A&O X3. Able to answer orientation questions, but is intermittently confused. Repetitive questioning. Speech clear. Cranial nerves II-XII grossly intact. No ataxic movements. No focal deficits. PSYCHIATRIC: Appropriate mood and affect. Normal interaction. <Bonnie Sandra PA-C - Last Filed: 09/10/24 03:02> Course OCCUPATIONAL MEDICINE PHYSICIAN/PA Physician Supervision Patient's HPI, Exam, and MDM were reviewed and I agreed with the workup and disposition done in the emergency department by the MLP. I was available for consultation, but was not directly involved with patient's care nor did I ev aluate the patient. <Medhat Mattson MD - Last Filed: 09/10/24 07:19> Vital Signs Vital signs: Vital Signs Temperature 36.2 C L 09/09/24 20:57 Pulse Rate 69 09/09/24 20:57 Respiratory Rate 18 09/09/24 20:57 Blood Pressure 143/72 H 09/09/24 20:57 Pulse Oximetry 99 09/09/24 20:57 Oxygen Delivery Room Air 09/09/24 20:57 Temperature 36.5 C 09/10/24 04:00 Pulse Rate 66 09/10/24 04:00 Respiratory Rate 18 09/10/24 04:00 Blood Pressure 144/64 H 09/10/24 04:00 Pulse Oximetry 97 09/10/24 04:00 Oxygen Delivery Room Air 09/09/24 20:57 <Bonnie Sandra PA-C - Last Filed: 09/10/24 03:02> Vital Signs Temperature 36.2 C L 09/09/24 20:57 Pulse Rate 69 09/09/24 20:57 Respiratory Rate 18 09/09/24 20:57 Blood Pressure 143/72 H 09/09/24 20:57 Pulse Oximetry 99 09/09/24 20:57 Oxygen Delivery Room Air 09/09/24 20:57 Temperature 36.5 C 09/10/24 04:00 Pulse Rate 66 09/10/24 04:00 Respiratory Rate 18 09/10/24 04:00 Blood Pressure 144/64 H 09/10/24 04:00 Pulse Oximetry 97 09/10/24 04:00 Oxygen Delivery Room Air 09/09/24 20:57 <Medhat Mattson MD - Last Filed: 09/10/24 07:19> Procedures Laceration Laceration 1: Date: 09/09/24 <AIDAN Rea Last Filed: 09/10/24 03:02> Time: 23:05 <AIDAN Rea Last Filed: 09/10/24 03:02> Site: scalp <AIDAN Rea Last Filed: 09/10/24 03:02> Side (If applicable): left <AIDAN Rea Last Filed: 09/10/24 03:02> Size (cm): 2.5 <AIDAN Rea Last Filed: 09/10/24 03:02> Description: linear <AIDAN Rea Last Filed: 09/10/24 03:02> Depth: simple, single layer <AIDAN Rea Last Filed: 09/10/24 03:02> Local Anesthetic: lidocaine 1% <AIDAN Rea Last Filed: 09/10/24 03:02> Amount of anesthesia used (mL): 5 <AIDAN Rea Last Filed: 09/10/24 03:02> Pre-repair: wound explored and irrigated <AIDAN Rea Last Filed: 09/10/24 03:02> ====== Skin Level ======: Skin layer closed with: nylon <AIDAN Rea Last Filed: 09/10/24 03:02> Size (cm): 5-0 <AIDAN Rea Last Filed: 09/10/24 03:02> Number of sutures: 6 <AIDAN Rea Last Filed: 09/10/24 03:02> Technique: simple, interrupted <AIDAN Rea Last Filed: 09/10/24 03:02> ====== Subcutaneous Layer ======: ====== Muscle Layer ======: ====== Tendon Layer ======: Laceration 2: Date: 09/09/24 <AIDAN Rea Last Filed: 09/10/24 03:02> Time: 23:20 <AIDAN Rea Last Filed: 09/10/24 03:02> Site: scalp <AIDAN Rea Last Filed: 09/10/24 03:02> Side (If applicable): left <AIDAN Rea Last Filed: 09/10/24 03:02> Size (cm): 1 <AIDAN Rea Last Filed: 09/10/24 03:02> Description: linear <AIDAN Rea Last Filed: 09/10/24 03:02> Depth: simple, single layer <AIDAN Rea Last Filed: 03:02> Local Anesthetic: lidocaine 1% <AIDAN Rea Last Filed: 09/10/24 03:02> Amount of anesthesia used (mL): 2 <AIDAN Rea Last Filed: 09/10/24 03:02> Pre-repair: wound explored and irrigated <AIDAN Rea Last Filed: 09/10/24 03:02> ====== Skin Level ======: Skin layer closed with: nylon <Bonnie Sandra PA-C - Last Filed: 09/10/24 03:02> Size (cm): 5-0 <AIDAN Rea Last Filed: 09/10/24 03:02> Number of sutures: 2 <Bonnie Sandra PA-C - Last Filed: 09/10/24 03:02> Technique: simple, interrupted <Bonnie Sandra PA-C - Last Filed: 09/10/24 03:02> ====== Subcutaneous Layer ======: ====== Muscle Layer ======: ====== Tendon Layer ======: MDM - Fall MDM Narrative Medical decision making narrative: Patient presented to ED status post ground level fall versus syncope. Unable to tell me how the fall occurred. Vital signs are stable upon arrival. Patient in no acute distress. No significant orthostatic hypotension was noted. Lacerations were repaired without complications. Tetanus up-to-date. Pacemaker was interrogated, 2 alarms noted. Had ventricular rate detected x2. These episodes occurred on August 19 and . No cardiac events were noted today. CT brain and cervical spine were without acute traumatic findings. Lumbar spine CT also without acute fracture, does show severe spondylosis and previous fusion. Chest x-ray is clear. Laboratory studies are fairly unremarkable. Na stable at 135. Stable electrolytes. Stable magnesium. EKG with pacemaker, nonspecific ST changes. Appear similar to previous EKGs from recent hospitalizations. Baseline Troponin is undetectable. Urinalysis with evidence of blood. This is a chronic finding per patient. No significant signs of infection. Patient has been notably very confused in the ED. He is able to answer orientation questions when asked but repeats questioning often, repeatedly stating he does not remember what happened, states he feels a whole chunk of his day is missing, keeps wondering where his is, stating that no one has been in his room. I do not see a diagnosis of dementia or evidence of confusion on recent visits/hospitalization. He has been seen for previous falls recently and was able to given entire timeline of events. Discussed this with patient's as well who states confusion is not normal for him. Possible he may have concussion, but concern for possible syncopal episode, plus given acute confusion, will discuss with hospitalist obs admit. Discussed case with Dr. Daley, hospitalist, accepted patient for admission. Patient in agreement with plan. <Bonnie Sandra PA-C - Last Filed: 09/10/24 03:02> Medical Records Attestation: I reviewed the patient's medical records. <Bonnie Sandra PA-C - Last Filed: 09/10/24 03:02> Lab Data Attestation: I reviewed the patient's lab results. <Bonnie Sandra PA-C - Last Filed: 09/10/24 03:02> Result diagrams: 09/09/24 21:35 09/09/24 21:35 <Bonnie Sandra PA-C - Last Filed: 09/10/24 03:02> Labs: Lab Results 09/09/24 09/09/24 09/10/24 Range/Units 21:35 23:02 00:34 WBC 8.9 (4.5-10.0) K/mm3 RBC 4.59 L (4.6-6.20) M/mm3 Hgb 14.7 (14.0-18.0) g/dL Hct 44.9 (42.0-52.0) % MCV 97.8 (80-100) fl MCH 32.0 (26-34) pg MCHC 32.7 (32-36) g/dl RDW 13.3 (11.5-14.5) % Plt Count 340 (150-375) k/mm3 MPV 8.9 (7.4-10.4) fl Immature Gran % (Auto) 0.3 (0-0.5) % Neut % (Auto) 75.2 H (45.5-73.1) % Lymph % (Auto) 11.5 L (18.3-44.2) % Millard % (Auto) 9.0 H (2.6-8.5) % Eos % (Auto) 3.3 (0-4.4) % Baso % (Auto) 0.7 (0.2-1.2) % Lymph # (Auto) 1.02 (0.9-3.2) K/mm3 [place] # (Auto) 0.8 H (0.1-0.6) K/mm3 Eos # (Auto) 0.3 (0-0.3) K/mm3 Baso # (Auto) 0.1 (0.0-0.1) K/mm3 Abs Immat Gran (auto) 0.03 (0.00-0.031) K/mm3 Absolute Neuts (auto) 6.7 (1.3-6.7) K/mm3 Absolute Nucleated RBC 0.000 (0.0-0.012) K/mm3 Nucleated RBC % 0.0 (0.0-0.2) % Sodium 135 L (137-145) mmol/L Potassium 4.0 (3.4-5.0) mmol/L Chloride 96 L (98-107) mmol/L Carbon Dioxide 31 H (22-30) mmol/L Anion Gap 8 (4-12) mmol/L BUN 17 (9-20) mg/dL Creatinine 0.80 (0.7-1.3) mg/dL Estim Creat Clear Calc 60 ml/min Estimated GFR > 60 (59 - ) Glucose 99 (65-110) mg/dL Calcium 10.0 (8.4-10.2) mg/dL Magnesium 2.4 H (1.6-2.3) mg/dL Total Bilirubin 0.6 (0.2-1.3) mg/dL AST 44 (17-59) U/L ALT 46 (6-50) U/L Alkaline Phosphatase 142 H (38-126) U/L Troponin I < 0.012 < 0.012 (0.000-0.034) ng/mL Total Protein 8.0 (6.3-8.2) g/dL Albumin 4.7 (3.5-5.1) g/dL Urine Color Yellow (Yellow) Urine Appearance Cloudy H (Clear) Urine pH 7.5 (5.0-9.0) Ur Specific [place] 1.016 (1.001-1.035) Urine Protein Trace (Negative) mg/dL Urine Glucose (UA) Negative (Negative) mg/dL Urine Ketones Trace H (Negative) mg/dL Ur Blood (Man) 2+ H (Negative) Urine Nitrate Negative (Negative) Urine Bilirubin Negative (Negative) Urine Urobilinogen 1.0 (<2.0) mg/dL Add Ur Microanalysis Reviewed Leukocyte Esterase Rfl Negative (Negative) JOSE/UL Urine RBC 21-50 H (0-2) /hpf Urine WBC 0-5 (0-3) /hpf Ur Squamous Epith Cells None seen (Few) /hpf Urine Bacteria None seen /hpf Urine Casts 0-2 <Bonnie Sandra PA-C - Last Filed: 09/10/24 03:02> Lab Results 09/09/24 09/09/24 09/10/24 Range/Units 21:35 23:02 00:34 WBC 8.9 (4.5-10.0) K/mm3 RBC 4.59 L (4.6-6.20) M/mm3 Hgb 14.7 (14.0-18.0) g/dL Hct 44.9 (42.0-52.0) % MCV 97.8 (80-100) fl MCH 32.0 (26-34) pg MCHC 32.7 (32-36) g/dl RDW 13.3 (11.5-14.5) % Plt Count 340 (150-375) k/mm3 MPV 8.9 (7.4-10.4) fl Immature Gran % (Auto) 0.3 (0-0.5) % Neut % (Auto) 75.2 H (45.5-73.1) % Lymph % (Auto) 11.5 L (18.3-44.2) % Mill[place] % (Auto) 9.0 H (2.6-8.5) % Eos % (Auto) 3.3 (0-4.4) % Baso % (Auto) 0.7 (0.2-1.2) % Lymph # (Auto) 1.02 (0.9-3.2) K/mm3 [place] # (Auto) 0.8 H (0.1-0.6) K/mm3 Eos # (Auto) 0.3 (0-0.3) K/mm3 Baso # (Auto) 0.1 (0.0-0.1) K/mm3 Abs Immat Gran (auto) 0.03 (0.00-0.031) K/mm3 Absolute Neuts (auto) 6.7 (1.3-6.7) K/mm3 Absolute Nucleated RBC 0.000 (0.0-0.012) K/mm3 Nucleated RBC % 0.0 (0.0-0.2) % Sodium 135 L (137-145) mmol/L Potassium 4.0 (3.4-5.0) mmol/L Chloride 96 L (98-107) mmol/L Carbon Dioxide 31 H (22-30) mmol/L Anion Gap 8 (4-12) mmol/L BUN 17 (9-20) mg/dL Creatinine 0.80 (0.7-1.3) mg/dL Estim Creat Clear Calc 60 ml/min Estimated GFR > 60 (59 - ) Glucose 99 (65-110) mg/dL Calcium 10.0 (8.4-10.2) mg/dL Magnesium 2.4 H (1.6-2.3) mg/dL Total Bilirubin 0.6 (0.2-1.3) mg/dL AST 44 (17-59) U/L ALT 46 (6-50) U/L Alkaline Phosphatase 142 H (38-126) U/L Troponin I < 0.012 < 0.012 (0.000-0.034) ng/mL Total Protein 8.0 (6.3-8.2) g/dL Albumin 4.7 (3.5-5.1) g/dL Urine Color Yellow (Yellow) Urine Appearance Cloudy H (Clear) Urine pH 7.5 (5.0-9.0) Ur Specific [place] 1.016 (1.001-1.035) Urine Protein Trace (Negative) mg/dL Urine Glucose (UA) Negative (Negative) mg/dL Urine Ketones Trace H (Negative) mg/dL Ur Blood (Man) 2+ H (Negative) Urine Nitrate Negative (Negative) Urine Bilirubin Negative (Negative) Urine Urobilinogen 1.0 (<2.0) mg/dL Add Ur Microanalysis Reviewed Leukocyte Esterase Rfl Negative (Negative) JOSE/UL Urine RBC 21-50 H (0-2) /hpf Urine WBC 0-5 (0-3) /hpf Ur Squamous Epith Cells None seen (Few) /hpf Urine Bacteria None seen /hpf Urine Casts 0-2 <Medhat Mattson MD - Last Filed: 09/10/24 07:19> Imaging Data Attestation: I personally reviewed and interpreted this imaging study as follows: <Tacos Sandra PA-C - Last Filed: 09/10/24 03:02> Radiologist's impression: ITS Impressions Head CT 09/09/24 21:54 IMPRESSION: 1. Stable extensive nonspecific cerebral white matter disease, which likely represents chronic small vessel ischemic disease. Cervical Spine CT 09/09/24 21:56 IMPRESSION: 1. No fracture. 2. Severe cervical spondylosis. Chest X-Ray 09/09/24 22:00 IMPRESSION: 1. No acute cardiopulmonary disease. Lumbar Spine CT 09/09/24 22:00 IMPRESSION: 1. Severe lumbar spondylosis. 2. Anterior and posterior fusion procedures from L4 to S1. 3. Thoracolumbar dextroscoliosis. <Bonnie Sandra PA-C - Last Filed: 09/10/24 03:02> ECG Data EKG #1: Attestation: I personally reviewed and interpreted this ECG as follows: <Bonnie Sandra PA-C - Last Filed: 09/10/24 03:02> ECG completion date: 09/09/24 <Bonnie Sandra PA-C - Last Filed: 09/10/24 03:02> ECG completion time: 21:22 <Bonnie Sandra PA-C - Last Filed: 09/10/24 03:02> Prior ECG tracings: available for review (appears similar to previous) <Bonnie Sandra PA-C - Last Filed: 09/10/24 03:02> EKG Interpretation: normal rate (65) and non-specific ST changes (nonspecific ST elevation is chronic) <Bonnie Sandra PA-C - Last Filed: 09/10/24 03:02> Pacemaker function: normal pacer function <Bonnie Sandra PA-C - Last Filed: 09/10/24 03:02> Discharge Plan Discharge Clinical Impression: Laceration of multiple sites of face, Acute confusion Closed head injury Qualifiers: Encounter type: initial encounter Qualified Code(s): S09.90XA - Unspecified injury of head, initial encounter <Bonnie Sandra PA-C - Last Filed: 09/10/24 03:02> Patient Disposition: Still a Patient <Bonnie Sandra PA-C - Last Filed: 09/10/24 03:02> Condition: Stable <Bonnie Sandra PA-C - Last Filed: 09/10/24 03:02>
[2024-09-09 21:43] LABS: Basophils Absolute Auto 0.1 K/mm3 (0.0-0.1); Basophils Percent Auto 0.7 % (0.2-1.2); Eosinophils Absolute Auto 0.3 K/mm3 (0-0.3); Eosinophils Percent Auto 3.3 % (0-4.4); Hematocrit 44.9 % (42.0-52.0); Hemoglobin 14.7 g/dL (14.0-18.0); Immature Granulocyte Absolute 0.03 K/mm3 (0.00-0.031); Immature Granulocyte Percent A 0.3 % (0-0.5); Lymphocytes Absolute Auto 1.02 K/mm3 (0.9-3.2); Lymphocytes Percent Auto 11.5 % (18.3-44.2); Mean Corpuscular HGB Conc 32.7 g/dl (32-36); Mean Corpuscular Volume 97.8 fl (80-100); Mean Platelet Volume 8.9 fl (7.4-10.4); Monocytes Absolute Auto 0.8 K/mm3 (0.1-0.6); Neutrophils Absolute Auto 6.7 K/mm3 (1.3-6.7); Neutrophils Percent Auto 75.2 % (45.5-73.1); Platelet Count Result 340 k/mm3 (150-375); Red Blood Count 4.59 M/mm3 (4.6-6.20); Red Cell Distribution Width 13.3 % (11.5-14.5); White Blood Count 8.9 K/mm3 (4.5-10.0)
[2024-09-09 21:57] LABS: Magnesium 2.4 mg/dL (1.6-2.3)
[2024-09-09 21:59] LABS: Alanine Aminotransferase 46 U/L (6-50); Albumin Level 4.7 g/dL (3.5-5.1); Alkaline Phosphatase 142 U/L (38-126); Anion Gap 8 mmol/L (4-12); Aspartate Amino Transferase 44 U/L (17-59); Bilirubin,Total 0.6 mg/dL (0.2-1.3); Blood Urea Nitrogen 17 mg/dL (9-20); Carbon Dioxide 31 mmol/L (22-30); Chloride 96 mmol/L (98-107); Estimated CRCL calculation 60 ml/min; Estimated Glomerular Filt Rate > 60; Glucose 99 mg/dL (65-110); Sodium 135 mmol/L (137-145)
[2024-09-09 22:08] LABS: Troponin I < 0.012 ng/mL (0.000-0.034)
[2024-09-09 23:03] VITALS: BP 140/80; BP 146/71; PULSE 68; PULSE 70
[2024-09-09 23:04] VITALS: BP 163/80; PULSE 68
[2024-09-09 23:09] VITALS: BP 140/80; PULSE 66; RESP 15; O2SAT 98
--- NOTE | 2024-09-09 23:12 | PC.NURSE ---
Received pacemaker interrogation report via fax at this time, report given to AIDAN Nicole.
--- NOTE | 2024-09-09 23:18 | PC.NURSE ---
Called pt's per his request, no answer at this time.
[2024-09-09 23:28] LABS: Add Urine Microscopic? YES; Appearance Urine Cloudy (Clear); Bacteria Urine None Seen /hpf; Bilirubin Urine Negative (Negative); Blood Urine 2+ (Negative); Color Urine Yellow (Yellow); Glucose Urine UA Negative (Negative); Ketones Urine Trace mg/dL (Negative); Leukocyte Esterase Ur Negative LEU/UL (Negative); Need Manual Microscopic Reviewed; Nitrate Urine Negative (Negative); Non Pathogenic Casts 0-2; Protein Urine Trace mg/dL (Negative); RBC Urine 21-50 /hpf (0-2); Specific Grav Ur 1.016 (1.001-1.035); Squamous Epithelial Cell Urine None Seen /hpf (Few); WBC Urine 0-5 /hpf (0-3); pH Urine 7.5 (5.0-9.0)
[2024-09-10] VITALS (10 sets, daily range): BP systolic 120–145; BP diastolic 59–78; PULSE 60–78; RESP 14–18; TEMP 36.2–37; O2SAT 97–100; BMI 23.8
--- NOTE | 2024-09-10 | ECHO_ITS ---
Patient Info Name: Dinesh Saha Age: 84 years : 1940 Gender: Male Ht: 68 in Wt: 156 lbs BSA: 1.85 m2 HR: 61 bpm BP: 144 / 64 mmHg Heart Rhythm: Sinus Rhythm, Paced Technical Quality: Fair Exam Date: 09/10/2024 1:34 PM Exam Location: Echo Lab Patient Status: Outpatient Admit Date: 09/10/2024 Staff Ordering Physician: Elaina Moseley APRN Nurse Practitioner Manager: Bridgett Manzanares RDCS Attending Provider: Elaina Moesley APRN Exam Type: CA echo doppler color flow Study Info Indications R55 - Syncope and collapse R01.1 - Cardiac murmur, unspecified Complete two-dimensional, color flow and Doppler transthoracic echocardiogram is performed. Summary 1. Left ventricular chamber dimension is normal. 2. Left ventricular systolic function is normal, estimated at 65-70%. 3. There is moderately increased left ventricular wall thickness. 4. Left ventricular septal wall motion is abnormal with septal motion related to pacing. 5. The left ventricular diastolic function is grade I diastolic dysfunction. 6. Right ventricular systolic function is normal. 7. Left atrial chamber dimension is moderately enlarged. 8. Right atrial chamber dimension is mildly enlarged. 9. There is moderate aortic valve calcification. 10. There is mild to moderate aortic valve stenosis with a peak velocity of 279 cm/s, mean gradient of 15 mmHg, and aortic valve area of 1.5 cm2. 11. There is mild tricuspid valve regurgitation. Left Ventricle Left ventricular chamber dimension is normal. Left ventricular systolic function is normal, estimated at 65-70%. There is moderately increased left ventricular wall thickness. Left ventricular septal wall motion is abnormal with septal motion related to pacing. The left ventricular diastolic function is grade I diastolic dysfunction. Right Ventricle Linear artifact in right ventricle suggestive of catheter(s), pacemaker lead(s), or ICD lead(s). Right ventricular chamber dimension is normal. Right ventricular systolic function is normal. Left Atria Left atrial chamber dimension is moderately enlarged. Right Atria Linear artifact in the right atrium suggestive of catheter(s), pacemaker lead(s), or ICD lead(s). Right atrial chamber dimension is mildly enlarged. Atrial Septum Intact interatrial septum visualized by color flow imaging. Aortic Valve The aortic valve is probable trileaflet. There is mild to moderate aortic valve stenosis with a peak velocity of 279 cm/s, mean gradient of 15 mmHg, and aortic valve area of 1.5 cm2. There is no aortic valve regurgitation. There is moderate aortic valve calcification. Pulmonic Valve The pulmonic valve is not well visualized. There is no pulmonic regurgitation. Mitral Valve There is trace mitral valve regurgitation. The mitral valve annulus is mildly calcified. Tricuspid Valve There is mild tricuspid valve regurgitation. Pericardium/Pleural There is no pericardial effusion. Inferior Vena Cava Normal inferior vena cava with >50% collapse upon inspiration consistent with normal right atrial pressure, 3 mmHg. Aorta The aortic root size at the sinus of Valsalva is normal. Left Ventricular Outflow Tract Name Value Normal LVOT 2D LVOT Diameter 2.0 cm LVOT Doppler LVOT Peak Gradient 5 mmHg LVOT Mean Gradient 3 mmHg LVOT VTI 26 cm LVOT VTI/AV VTI Ratio 0.5 LVOT Stroke Volume 81 ml LVOT CO 4.7 l/min LVOT CI 2.6 l/min/m2 Pulmonic Valve Name Value Normal PV Doppler PV Peak Gradient 7 mmHg Mitral Valve Name Value Normal MV Doppler MV Decel [place] 308 cm/s2 MV PHT 72 ms MV Area (PHT) 3.1 cm2 4.0-5.0 MV Diastolic Function MV E Peak Velocity 76 cm/s MV A Peak Velocity 87 cm/s MV E/A 0.9 MV Decel Time 247 ms Tricuspid Valve Name Value Normal TV Regurgitation Doppler TR Peak Velocity 228 cm/s TR Peak Gradient 20 mmHg Estimated PAP/RSVP RA Pressure 3 mmHg <=5 PA Systolic Pressure 24 mmHg <36 RV Systolic Pressure 24 mmHg <36 Aorta Name Value Normal Ascending Aorta Ao Root Diameter (MM) 2.7 cm Ao Root Diam Index (MM) 1.5 cm/m2 Aortic Valve Name Value Normal AV Doppler AV Peak Velocity 279 cm/s AV Peak Gradient 27 mmHg AV Mean Gradient 15 mmHg AV VTI 55 cm AV Area (Cont Eq VTI) 1.5 cm2 >=3.0 AV Area (Cont Eq Nick) 1.4 cm2 AV Regurgitation 2D LVOT Area 3.1 cm2 Ventricles Name Value Normal LV Dimensions 2D/MM IVS Diastolic Thickness (2D) 0.9 cm 0.6-1.0 IVS Diastole Thickness (MM) 0.9 cm 0.6-1.0 LVID Diastole (2D) 4.9 cm 4.2-5.8 LVID Diastole (MM) 6.0 cm 4.2-5.8 LVIW Diastolic Thickness (2D) 1.0 cm 0.6-1.0 LVIW Diastolic Thickness (MM) 0.8 cm 0.6-1.0 LVID Systole (2D) 2.5 cm 2.5-4.0 LVID Systole (MM) 3.0 cm 2.5-4.0 LVOT Diameter 2.0 cm LV Mass (2D Cubed) 165.50 g 88.00-224.00 LV Mass Index (2D Cubed) 90 g/m2 49-115 Relative Wall Thickness (2D) 0.41 LV Mass (MM Cubed) 200.60 g 88.00-224.00 LV Mass Index (MM Cubed) 109 g/m2 49-115 Relative Wall Thickness (MM) 0.27 LV Fractional Shortening/Ejection Fraction 2D/MM LV Fractional Shortening (2D) 48 % 25-43 LV Fractional Shortening (MM) 51 % 25-43 LV EF (MM Teicholz) 82 % 52-72 LV EF (2D Teicholz) 79 % 52-72 LV Diastolic Volume (4C MOD) 105 ml LV EF (4C MOD) 79 % LV Diastolic Volume (2C MOD) 76 ml LV EF (2C MOD) 65 % LV Diastolic Volume (BP MOD) 98 ml 62-150 LV Diastolic Volume Index (BP MOD) 53 ml/m2 34-74 LV Systolic Volume (BP MOD) 25 ml 21-61 LV Systolic Volume Index (BP MOD) 14 ml/m2 11-31 LV EF (BP MOD) 74 % 52-72 LV Diastolic Length (4C) 8.1 cm LV Systolic Length (4C) 7.2 cm LV Stroke Volume (4C MOD) 83 ml Atria Name Value Normal LA Dimensions LA Dimension (MM) 4.5 cm 3.0-4.1 LA Volume (4C A-L) 71 ml LA Volume (BP A-L) 75 ml RA Dimensions RA Area (4C) 20.3 cm2 <=18.0 Report Signatures
[2024-09-10 01:10] LABS: Troponin I < 0.012 ng/mL (0.000-0.034)
--- NOTE | 2024-09-10 01:18 | ECG_ITS ---
Test Date: 2024-09-10 01:20:50 Measurements Intervals [place] Rate: 64 P: 22 KS: 266 QRS: -79 QRSD: 189 T: 90 QT: 485 QTc: 502 Interpretive Statements ELECTRONIC VENTRICULAR PACEMAKER SINUS RHYTHM Compared to ECG 09/09/2024 21:22:06 NO SIGNIFICANT CHANGES Electronically Signed On 09-10-2024 12:22:25 CDT by Glenroy Kaufman M.D.
[2024-09-10] MEDS: MELATONIN 5 MG TABLET PO (03:07)
--- NOTE | 2024-09-10 04:39 | PC.NURSE ---
pt brought up to the floor by ED staff. Once patient was in bed head to toe exam was completed by this RN. Redness on coccyx noted. Pt stomach is oddly shaped, I asked him if it always looks like that and he stated that it has been this way for a few weeks. Pitting edema also noted on bilateral lower legs and feet. I asked the patient if the swelling is normal for him and if he takes a water pill at home to which he responded he was taking hydrochlorothiazide but had stopped taking it. Dr Daley called and notified of findings and order was placed for an ammonia level.
[2024-09-10 05:21] LABS: Ammonia < 9 umol/L (9-30)
--- NOTE | 2024-09-10 08:33 | P.HP_ITS ---
H&P: HPI History of Present Illness Date/Time: 09/10/24 08:33 Chief Complaint: The patient is an 84-year-old man, with a history of hypertension, sick sinus syndrome s/p pacemaker, recent admission for hyponatremia and orthostatic hypotension who was admitted for a fall in the evening -. Patient does not remember the fall. He hit his head and had two lacerations to his left temporal region that were sutured in the ER. Also broke a tooth. He received a tetanus shot in 2021 according to records.? Called [facility]. Nurses have reported he?s intermittently more confused. No one was present when he fell, but patient reported to them at the time that he tried to self transfer, forgot to use his walker, and fell. Hit his mouth and had a laceration to his head, broke a tooth. He had shoes on at the time. No report of a loss of consciousness.?Spoke with his and she reports confusion is new to her in the recent months, around the time since he's had hyponatremia and started falling frequently. Can be impulsive at the [facility]. She says sometimes he can be stubborn about not using his walker when he should. Prior to last admission he was living with his at home, and up to the time he started falling, he was able to walk up and down the stairs to the basement multiple times a day. 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 She is now considering [facility] placement for her and possibly assisted living for herself, but would probably eventually try to find a facility in [place] close to her daughter. Short term she said he's happy at [facility] and plans for him to return there. He was seen in the emergency department, 08/16 with shoulder pain after a fall and was found to have an avulsion fracture of his proximal humerus.? He was seen again in the ER on after a ground level fall. Sodium was 124 at that time. He decided to discharge home from the ER. He came back to the ER 92 to 09/03 for weakness and falls, was found to have severe hyponatremia, sodium 120. He initially had severe orthostatic and were checking orthostatic blood pressures daily. Sodium gradually improved with f luids, but he developed lower extremity edema, so fluids were held, and he was started on sodium tabs, 10 mg of torsemide, and a fluid restriction, which was continued at the facility.? 929 serum osmolality low, 251, urine osmolality 473, Urine sodium 105, serum sodium 120. No indication of fluid overload on initial exams and normal chest x- ray.??Hyponatremia due to diuretics or SIADH. He also had urinary retention during admission, required a Watson catheter, Was started on tamsulosin, subsequently passed a void trial.? Home medication during that admission included, lisinopril, hydrochlorothiazide, multiple vitamins, trazodone, oxycodone amlodipine In the ER vital signs were stable. He was afebrile, HR 62-78, RR18, BP 140/71, O2 sat 97-100% RA. He has an Petty pacemaker that was interrogated in the ER. Two episodes with a high heart rate, but worse August 19 and which were days he was in the ER after falls. 12 lead EKG showed a paced rhythm.? He had Cervical and L spine CT that showed no acute findings. He had no focal neurological deficits on exam. Chest x-ray, no acute findings. Had CT showed stable, extensive cerebral white matter disease likely chronic small vessel, ischemic disease. UA was cloudy but no WBCs.?Last tentanus shot in 2021. After arrival to the floor, orthostatic vital signs were normal. 140s/60-70s.? Review of Systems Review of Systems: No report of fevers, chills, nausea, vomiting, diarrhea, or abdominal pain PMFSH Past Medical History Medical History Adenomatous colon polyp Aortic stenosis Crohn's disease without complication Essential hypertension Mixed hyperlipidemia Nasal polyps Nicotine dependence, other tobacco product, in remission Osteoarthritis of spine with radiculopathy, lumbar region Prostate cancer Sick sinus syndrome (03/05/15) Status post [place] dual chamber permanent pacemaker placement. Spinal stenosis of lumbar region at multiple levels Surgical History Surgical History History of cataract extraction History of permanent cardiac pacemaker placement History of prostatectomy History of spinal fusion History of transurethral resection of prostate Family History Family History Mother Family history of Alzheimer's disease Father Family history of osteoporosis Malignant neoplasm of prostate Social History Social History Social History: Surrogate medical decision maker: Aliza Saha, spouse. Code status: Full code. Years smoked: 40 Smoking status: Former smoker Tobacco type: pipe Second hand tobacco smoke exposure: Yes Smoking end date: 12/05/18 Alcohol intake: never Alcohol use details: rarely Substance use: never Substance use type: does not use Do You Feel Safe in your Home?: Yes Lack of Transportation: No Lack of Food: Never True Current Housing: I Have Housing Concerned About Future Housing: No Difficulty Paying Gas/Electric Bills: No Difficulty Paying for Meds: No Currently Unemployed: No Education: Master's Degree or Higher Difficulty w/ Childcare or Family Care: No Living arrangements: with family Additional living arrangements comments: Lives with spouse in [place]. 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 Spiritual care concerns: No Meds Home Medications and Allergies Home Medications Medication Instructions Recorded Confirmed Type [id number]-[id number]-pnwaewks 250 1 tablet PO Q4-6H PRN pain #1 12/17/19 09/10/24 Rx mg-250 mg-65 mg tablet (Excedrin tablet Extra Strength) biotin 5,000 mcg disintegrating 10,000 mcg PO DAILY 12/17/19 09/10/24 History tablet cyanocobalamin (vitamin B-12) 5,000 mcg PO DAILY 12/17/19 09/10/24 History 5,000 mcg capsule folic acid 400 mcg tablet 0.4 mg PO DAILY 12/17/19 09/10/24 History melatonin 5 mg capsule 5 mg PO HS 12/17/19 09/10/24 History multivitamin 1 tablet PO DAILY 12/17/19 09/10/24 History omega-3 fatty acids 1,000 mg 1,000 mg PO DAILY 12/17/19 09/10/24 History capsule (Fish Oil Concentrate) docusate sodium 100 mg capsule 100 mg PO DAILY PRN Constipation 10/14/22 09/10/24 History (Colace) ondansetron HCl 4 mg tablet 4 mg PO Q8H PRN Nausea/vomiting 10/14/22 09/10/24 History trazodone 50 mg tablet 25 mg PO QHS insomnia 05/08/24 09/10/24 History acetaminophen 500 mg tablet 1,000 mg PO TID PRN pain #30 tabs 08/16/24 09/10/24 Rx (Tylenol Extra Strength) oxycodone 5 mg tablet 2.5 mg PO Q8H PRN pain #10 tabs 08/16/24 09/10/24 Rx sodium chloride 1,000 mg soluble 500 mg PO BID #60 tabs 09/03/24 09/10/24 Rx tablet sulfamethoxazole 800 1 tab PO Q12HR #7 tabs 09/03/24 09/10/24 Rx mg-trimethoprim 160 mg tablet torsemide 10 mg tablet 10 mg PO QAM #30 tabs 09/03/24 09/10/24 Rx clonazepam 0.5 mg tablet (Klonopin) 0.25 mg PO QHS PRN insomnia #30 09/06/24 09/10/24 Rx tabs atorvastatin 20 mg tablet 20 mg PO DAILY 09/10/24 09/10/24 History flaxseed oil 1,000 mg capsule 1,000 mg PO DAILY 09/10/24 09/10/24 History vit J-fbjatqio-wdvqnbwgfmn lotion 1 applic topical DAILY PRN Dry Skin 09/10/24 09/10/24 History (Cetaphil Moisturizing lotion) Allergies Allergy/AdvReac Type Severity Reaction Status Date / Time No Known Drug Allergies Allergy Unknown Unknown Verified 09/10/24 02:46 Vital Signs Vital Signs - 24 hr 09/09/24 20:57 09/09/24 23:03 09/09/24 23:03 Temperature 97.2 F L Pulse Rate 69 70 68 Respiratory Rate 18 Blood Pressure 143/72 H 146/71 H 140/80 Pulse Oximetry 99 Oxygen Delivery Room Air 09/09/24 23:04 09/09/24 23:09 09/10/24 02:13 Temperature Pulse Rate 68 66 60 Respiratory Rate 15 15 Blood Pressure 163/80 H 140/80 143/62 H Pulse Oximetry 98 100 Oxygen Delivery 09/10/24 03:53 09/10/24 04:00 Temperature 97.7 F Pulse Rate 60 66 Respiratory Rate 14 18 Blood Pressure 145/78 H 144/64 H Pulse Oximetry 99 97 Oxygen Delivery Exam Narrative: General - Awake and alert. No acute distress Eyes - PERRLA, EOM intact. Reflection in pupil to left eye (likely cataract) Head--, laceration/sutures to left muslim ENT - No thrush, broken tooth White reflection in left pupil. Vision equal bilaterally Neck - No noticeable or palpable swelling Lymph Nodes - No lymphadenopathy Cardiovascular - RRR 4/6 murmur heart best at the 2nd right ICS, no JVD Lungs: Clear to auscultation, No wheezing, use of accessory muscles, no crackles or wheezes. Skin - Skin warm and dry, no rashes. sutures to left scalp, small hematoma under left eye Abdomen - Normal bowel sounds, abdomen soft and nontender Extremities - Mild bilateral pitting LE edema, cyanosis or clubbing Musculoskeletal - 4/5 strength, limited range of motion left arm, no swollen or erythematous joints. Neurological ? Alert and oriented x 3, CN 2-12 grossly intact. EOMI, PERRLA. Unable to do serial 7's easily. Did get 1 number. Could count backward by 3's. Remembered 2/5 words in 1 and 5 minutes but gave him some prompting. Psych: Normal mood and affect H&P: Results Labs Labs: Short CBC 09/09/24 Range/Units 21:35 WBC 8.9 (4.5-10.0) K/mm3 Hgb 14.7 (14.0-18.0) g/dL Hct 44.9 (42.0-52.0) % Plt Count 340 (150-375) k/mm3 BMP 09/09/24 21:35 Sodium 135 L Potassium 4.0 Chloride 96 L Carbon Dioxide 31 H BUN 17 Creatinine 0.80 Glucose 99 Calcium 10.0 Cardiac Enzymes 09/09/24 09/10/24 Range/Units 21:35 00:34 Troponin I < 0.012 < 0.012 (0.000-0.034) ng/mL Liver Function 09/09/24 Range/Units 21:35 Total Bilirubin 0.6 (0.2-1.3) mg/dL AST 44 (17-59) U/L ALT 46 (6-50) U/L Alkaline Phosphatase 142 H (38-126) U/L Albumin 4.7 (3.5-5.1) g/dL Urine 09/09/24 Range/Units 23:02 Urine Color Yellow (Yellow) Urine Appearance Cloudy H (Clear) Urine pH 7.5 (5.0-9.0) Ur Specific [place] 1.016 (1.001-1.035) Urine Protein Trace (Negative) mg/dL Urine Glucose (UA) Negative (Negative) mg/dL Assessment and Plan Assessment and plan (1) Laceration of multiple sites of face: Code(s): S01.81XA - Laceration without foreign body of other part of head, initial encounter Status: Acute Assessment and Plan: Sutured in ED Follow up with dentist for tooth (2) Fall: Qualifiers: Encounter type: initial encounter Qualified Code(s): W19.XXXA - Unspecified fall, initial encounter Code(s): W19.XXXA - Unspecified fall, initial encounter Status: Inactive Assessment and Plan: Unclear cause of fall, but sounds like he probably tripped or fell due to weakness. Suspect he may be impulsive 2/2 poor executive function related to cognitive decline. No infectious symptoms --PT/OT --Orthostatics were negative --Echo to follo up murmur, aortic stenosis --Tele --Head CT no acute findings (3) Closed head injury: Qualifiers: Encounter type: initial encounter Qualified Code(s): S09.90XA - Unspecified injury of head, initial encounter Code(s): S09.90XA - Unspecified injury of head, initial encounter Status: Acute Assessment and Plan: No headache Neuro exam nonfocal Treatment of fall, cognitive impairment as noted (4) Bilateral edema of lower extremity: Code(s): R60.0 - Localized edema Status: Acute (5) Cognitive impairment: Code(s): R41.89 - Other symptoms and signs involving cognitive functions and awareness Status: Acute Assessment and Plan: 09/[address] showed stable, extensive cerebral white matter disease likely chronic small vessel ischemic disease Patient has had a poor memory during prior admissions and hyponatremia was likely contributing. His reports his mental status seems much closer to normal at this point. Notes that he has been impulsive about getting up without his walker, attributes some of it to being stubborn. He has early signs of dementia, and CT head shows chronic changes above. --Neurology is not in the hospital this week, outpatient referral to follow cognitive changes. 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 He remembered 2/3 words in 1 and 5 minutes but required a lot of prompting, otherwise 1/3 words. Otherwise exam is nonfocal --TSH recently normal. Check B12, HIV, RPR. (6) Hyponatremia: Code(s): E87.1 - Hypo-osmolality and hyponatremia Status: Acute Assessment and Plan: Sodium corrected slowly last admission with fluids, subsequently changed to torsemide 10mg and Salt tabs 500 BID with a fluid restriction due to significant lower extremity edema, which has improved. He currently has only mild lower extremity edema. No orthostatic hypotension. Sodium normal --Continue same doses: Torsemide 10mg & Sodium chloride 500mg BID. Consider reducing both torsemide and salt tabs if edema resolves --Increase fluid restriction from 1500 to 1800ml per day and monitor --Unclear if hyponatremia is 2/2 diuretics or SIADH. May be medication related. Continued melatonin and trazodone since sodium normal, but could consider stopping and monitoring --Recently had urinary retention but watson has been removed and now off tamsulosin. Check PVR Hospitalist MIPS Advance Care Plan I have confirmed that the patient's Advanced Care Plan is present, code status is documented, or surrogate decision maker is listed in patient medical record.: Yes Medication Reconciliation I have utilized all available resources to obtain, update and review the patients current medications (includes all prescriptions, OTC, herbals, cannabis, and nutritional supplements).: Yes
[2024-09-10] MEDS: MULTIVITAMINS THERAPEUTIC TAB (*BKC) 1 TABLET PO (09:56)
[2024-09-10] MEDS: ATORVASTATIN 20 MG TABLET PO (09:56)
[2024-09-10] MEDS: ACETAMINOPHEN 500 MG TABLET 1000 MG PO (09:58)
[2024-09-10] MEDS: MELATONIN 3 MG TABLET PO (20:02)
[2024-09-11] VITALS (8 sets, daily range): BP systolic 120–163; BP diastolic 53–68; PULSE 58–81; RESP 12–16; TEMP 36.3–37.3; O2SAT 95–98
[2024-09-11 06:23] LABS: Basophils Percent Auto 0.5 % (0.2-1.2); Eosinophils Absolute Auto 0.3 K/mm3 (0-0.3); Eosinophils Percent Auto 3.5 % (0-4.4); Hemoglobin 12.5 g/dL (14.0-18.0); Immature Granulocyte Absolute 0.04 K/mm3 (0.00-0.031); Immature Granulocyte Percent A 0.5 % (0-0.5); Lymphocytes Absolute Auto 1.26 K/mm3 (0.9-3.2); Lymphocytes Percent Auto 16.3 % (18.3-44.2); Mean Corpuscular HGB Conc 33.8 g/dl (32-36); Mean Corpuscular Hemoglobin 32.6 pg (26-34); Mean Corpuscular Volume 96.4 fl (80-100); Mean Platelet Volume 9.6 fl (7.4-10.4); Monocytes Absolute Auto 0.7 K/mm3 (0.1-0.6); Monocytes Percent Auto 8.8 % (2.6-8.5); Neutrophils Absolute Auto 5.5 K/mm3 (1.3-6.7); Neutrophils Percent Auto 70.4 % (45.5-73.1); Platelet Count Result 308 k/mm3 (150-375); Red Blood Count 3.84 M/mm3 (4.6-6.20); Red Cell Distribution Width 13.1 % (11.5-14.5); White Blood Count 7.7 K/mm3 (4.5-10.0)
[2024-09-11 06:51] LABS: Anion Gap 7 mmol/L (4-12); Blood Urea Nitrogen 10 mg/dL (9-20); Calcium 9.1 mg/dL (8.4-10.2); Carbon Dioxide 27 mmol/L (22-30); Chloride 96 mmol/L (98-107); Estimated CRCL calculation 78 ml/min; Estimated Glomerular Filt Rate > 60; Glucose 91 mg/dL (65-110); Potassium 3.5 mmol/L (3.4-5.0); Sodium 130 mmol/L (137-145)
[2024-09-11 07:10] LABS: HIV 1/2 Ab P24 Ag Result Negative (Negative)
[2024-09-11 07:26] LABS: Vitamin B12 > 1000.0 pg/mL (239-931)
--- NOTE | 2024-09-11 08:20 | P.PNIM_ITS ---
Progress Note: A&P Assessment and Plan (1) Cognitive impairment: Code(s): R41.89 - Other symptoms and signs involving cognitive functions and awareness Status: Acute Assessment and Plan: 09/[address] showed stable, extensive cerebral white matter disease likely chronic small vessel ischemic disease Patient has had a poor memory during prior admissions and hyponatremia was likely contributing. His reports his mental status seems much closer to normal at this point. Notes that he has been impulsive about getting up without his walker, attributes some of it to being stubborn. He has early signs of dementia, and CT head shows chronic changes above. --Neurology is not in the hospital this week, outpatient referral to follow cognitive changes. 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 He remembered 2/3 words in 1 and 5 minutes but required a lot of prompting, otherwise 1/3 words. Otherwise exam is nonfocal --TSH recently normal. Check B12, HIV, RPR. (2) Fall: Qualifiers: Encounter type: initial encounter Qualified Code(s): W19.XXXA - Unspecified fall, initial encounter Code(s): W19.XXXA - Unspecified fall, initial encounter Status: Inactive Assessment and Plan: Unclear cause of fall, but sounds like he probably tripped or fell due to weakness. Suspect he may be impulsive 2/2 poor executive function related to cognitive decline. No infectious symptoms --PT/OT --Orthostatics were negative --Echo to follo up murmur, aortic stenosis --Tele --Head CT no acute findings (3) Closed head injury: Qualifiers: Encounter type: initial encounter Qualified Code(s): S09.90XA - Unspecified injury of head, initial encounter Code(s): S09.90XA - Unspecified injury of head, initial encounter Status: Acute Assessment and Plan: No headache Neuro exam nonfocal Treatment of fall, cognitive impairment as noted (4) Bilateral edema of lower extremity: Code(s): R60.0 - Localized edema Status: Acute Assessment and Plan: Left ventricular systolic function is normal, estimated at 65-70%. left ventricular diastolic function is grade I diastolic dysfunction. No pulmonary edema seen on x-ray or clinically Continue with po torsemide (5) Hyponatremia: Code(s): E87.1 - Hypo-osmolality and hyponatremia Status: Acute Assessment and Plan: Sodium corrected slowly last admission with fluids, subsequently changed to torsemide 10mg and Salt tabs 500 BID with a fluid restriction due to significant lower extremity edema, which has improved. He currently has only mild lower extremity edema. No orthostatic hypotension. Sodium normal --Continue same doses: Torsemide 10mg & Sodium chloride 500mg BID. Consider reducing both torsemide and salt tabs if edema resolves --Increase fluid restriction from 1500 and monitor --Unclear if hyponatremia is 2/2 diuretics or SIADH. May be medication related. Continued melatonin and trazodone since sodium normal, but could consider stopping and monitoring --Recently had urinary retention but watson has been removed and now off tamsulosin. Check PVR (6) Laceration of multiple sites of face: Code(s): S01.81XA - Laceration without foreign body of other part of head, initial encounter Status: Acute Assessment and Plan: Sutured in ED May be removed in 7-10 days Follow up with dentist for tooth Plan The patient is an 84-year-old man, with a history of hypertension, sick sinus syndrome s/p pacemaker, recent admission for hyponatremia and orthostatic hypotension who was admitted for a fall in the evening 10-14. Being treated for hyponatremia and concussion after a fall. One thousand five hundred fluid restriction, regular diet, and p.o. torsemide Time Spent With Patient Time with patient: Greater than 35 minutes Subjective Date/time seen: 09/11/24 08:20 Interval history: Na 130 this AM, 135 yesterday patient placed back on 1500 ml fluid restriction and regular diet. Patient's left hand was swelling and bruising, x-ray ordered Review of Systems Review of Systems: No report of fevers, chills, nausea, vomiting, diarrhea, or abdominal pain Constitutional: Constitutional: Reports no additional constitutional complaints Eyes: Eyes: Reports no additional eye complaints ENT: Reports Normal hearing present Cardiovascular: Cardiovascular: Reports no additional cardiovascular complaints Respiratory: Respiratory: Reports no additional respiratory complaints Gastrointestinal: Gastrointestinal: Reports no additional gastrointestinal complaints Genitourinary: Genitourinary: Reports no additional male genitourinary complaints Musculoskeletal: Musculoskeletal: Reports no additional musculoskeletal complaints Integumentary/Breasts: Skin/Breast: Reports as per HPI Neurologic: Reports as per HPI Psychiatric: Psychiatric: Reports no additional psychiatric complaints Exam Narrative: General - Awake and alert. No acute distress Eyes - PERRLA, EOM intact. Reflection in pupil to left eye (likely cataract) Head--, laceration/sutures to left restorationism ENT - No thrush, broken tooth White reflection in left pupil. Vision equal bilaterally Neck - No noticeable or palpable swelling Lymph Nodes - No lymphadenopathy Cardiovascular - RRR 4/6 murmur heart best at the 2nd right ICS, no JVD Lungs: Clear to auscultation, No wheezing, use of accessory muscles, no crackles or wheezes. Skin - Skin warm and dry, no rashes. sutures to left scalp, small hematoma under left eye Abdomen - Normal bowel sounds, abdomen soft and nontender Extremities - Mild bilateral pitting LE edema, cyanosis or clubbing Musculoskeletal - 4/5 strength, limited range of motion left arm, no swollen or erythematous joints. Neurological ? Alert and oriented x 3, CN 2-12 grossly intact. EOMI, PERRLA. Unable to do serial 7's easily. Did get 1 number. Could count backward by 3's. Remembered 2/5 words in 1 and 5 minutes but gave him some prompting. Psych: Normal mood and affect Objective Data Vital Signs Vital Signs: Vital Signs - 24 hr 09/10/24 12:00 09/10/24 14:00 09/10/24 12:10 Temperature 97.2 F L Pulse Rate 60 65 78 Respiratory Rate 18 18 Blood Pressure 140/71 Pulse Oximetry 100 100 Oxygen Delivery 09/10/24 16:00 09/10/24 20:34 09/10/24 20:00 Temperature 98.6 F Pulse Rate 65 60 60 Respiratory Rate 16 16 Blood Pressure 120/59 L Pulse Oximetry 97 97 Oxygen Delivery Room Air 09/10/24 20:00 09/11/24 00:00 09/11/24 00:00 Temperature 99.1 F Pulse Rate 66 81 58 L Respiratory Rate 12 Blood Pressure 133/61 Pulse Oximetry 98 Oxygen Delivery 09/11/24 04:00 09/11/24 04:00 Temperature 98.5 F Pulse Rate 61 61 Respiratory Rate 12 Blood Pressure 133/53 L Pulse Oximetry 97 Oxygen Delivery Intake/Output Intake/Output: Intake & Output 09/08/24 09/09/24 09/10/24 09/11/24 23:59 23:59 23:59 23:59 Intake Total 1316 772 Output Total 200 1000 Balance 1116 -228 Meds/Results Medications: Active Medications Generic Name Dose Route Start Last Admin Trade Name Freq PRN Reason Stop Dose Admin Acetaminophen 1,000 mg 09/10/24 02:53 Acetaminophen 500 Mg Tablet PO Q6H PRN Fever Atorvastatin Calcium 20 mg 09/10/24 09:00 09/10/24 09:56 Atorvastatin 20 Mg Tablet PO 20 mg DAILY HERBIE Administration Clonazepam 0.25 mg 09/10/24 20:22 Clonazepam (*Crx) 0.25 Mg Tablet PO QHS PRN insomnia Cyanocobalamin 5,000 mcg 09/11/24 09:00 Cyanocobalamin 1,000 Mcg Tablet PO DAILY HERBIE Dextrose 12.5 gm 09/10/24 02:53 Dextrose 50% 25 Gm/50 Ml Syringe IV PUSH PRN PRN Hypoglycemia Protocol Docusate Sodium 100 mg 09/10/24 20:22 Docusate Sodium 100 Mg Capsule PO DAILY PRN Constipation Fish Oil 1 gm 09/11/24 09:00 Hale 3 Polyunsat Fatty Acids 1 Gm Cap PO DAILY HERBIE Folic Acid 0.4 mg 09/11/24 09:00 Folic Acid 0.4 Mg Tablet PO DAILY HERBIE Glucagon 1 mg 09/10/24 02:53 Glucagon For Inj 1 Mg Vial IM PRN PRN Hypoglycemia Protocol Glucose 15 gm 09/10/24 02:53 Glucose Oral Gel 15 Gm Of Glucse In 37.5 Gm Tube PO PRN PRN Hypoglycemia Protocol Heparin Sodium (Porcine) 5,000 units 09/11/24 21:00 Heparin Sodium 5,000 Units/Ml Vial SUB-Q Q12HR HERBIE Dextrose 1,000 mls @ 100 mls/hr 09/10/24 02:53 Dextrose 5% 1,000 Ml IVPB PRN PRN Hypoglycemia Protocol Melatonin 3 mg 09/10/24 19:47 09/10/24 20:02 Melatonin 3 Mg Tablet PO 3 mg HS PRN Administration insomnia Multivitamins Therapeutic 1 tablet 09/10/24 09:00 09/10/24 09:56 Multivitamins Therapeutic Tab (*Bkc) PO 1 tablet DAILY HERBIE Administration Perflutren Lipid Microsphere 0 ml 09/10/24 12:12 Perflutren Lipid Microspheres 1.5 Ml Vial Diluted To 10 Ml Total Volume IV PUSH 09/13/24 12:12 ONCE PRN adequate visualization Protocol Sodium Chloride 500 mg 09/11/24 09:00 Sodium Chloride 500 Mg Tablet PO BID HERBIE Torsemide 10 mg 09/11/24 09:00 Torsemide 10 Mg Tablet PO QAM HERBIE Trazodone HCl 25 mg 09/10/24 21:00 09/10/24 21:23 Trazodone Hcl 25 Mg Tablet PO Not Given HS [facility] Radiology Results: ITS Impressions Head CT 09/09/24 21:54 IMPRESSION: 1. Stable extensive nonspecific cerebral white matter disease, which likely represents chronic small vessel ischemic disease. Cervical Spine CT 09/09/24 21:56 IMPRESSION: 1. No fracture. 2. Severe cervical spondylosis. Chest X-Ray 09/09/24 22:00 IMPRESSION: 1. No acute cardiopulmonary disease. Lumbar Spine CT 09/09/24 22:00 IMPRESSION: 1. Severe lumbar spondylosis. 2. Anterior and posterior fusion procedures from L4 to S1. 3. Thoracolumbar dextroscoliosis. Labs Labs: Laboratory Results - last 24 hr 09/11/24 05:29 WBC 7.7 RBC 3.84 L Hgb 12.5 L Hct 37.0 L MCV 96.4 MCH 32.6 MCHC 33.8 RDW 13.1 Plt Count 308 MPV 9.6 Immature Gran % (Auto) 0.5 Neut % (Auto) 70.4 Lymph % (Auto) 16.3 L Pierce % (Auto) 8.8 H Eos % (Auto) 3.5 Baso % (Auto) 0.5 Lymph # (Auto) 1.26 Pierce # (Auto) 0.7 H Eos # (Auto) 0.3 Baso # (Auto) 0.0 Abs Immat Gran (auto) 0.04 H Absolute Neuts (auto) 5.5 Absolute Nucleated RBC 0.000 Nucleated RBC % 0.0 Sodium 130 L Potassium 3.5 Chloride 96 L Carbon Dioxide 27 Anion Gap 7 BUN 10 D Creatinine 0.60 L Estim Creat Clear Calc 78 Estimated GFR > 60 Glucose 91 Calcium 9.1 Vitamin B12 > 1000.0 H HIV 1&2 Ab/P24 Ag 4thGn Negative Quality VTE Prophylaxis VTE prophylaxis: pharmacologic ordered Hospitalist MIPS Advance Care Plan I have confirmed that the patient's Advanced Care Plan is present, code status is documented, or surrogate decision maker is listed in patient medical record.: Yes Medication Reconciliation I have utilized all available resources to obtain, update and review the patients current medications (includes all prescriptions, OTC, herbals, cannabis, and nutritional supplements).: Yes
[2024-09-11 08:30] LABS: Rapid Plasma Reagin Non-Reactive (NonReactive)
[2024-09-11] MEDS: TORSEMIDE 10 MG TABLET PO (08:33)
[2024-09-11] MEDS: OMEGA 3 POLYUNSAT FATTY ACIDS 1 GM CAP PO (08:33)
[2024-09-11] MEDS: CYANOCOBALAMIN 1,000 MCG TABLET 5000 MCG PO (08:33)
[2024-09-11] MEDS: SODIUM CHLORIDE 500 MG TABLET PO ×2 (08:34→16:46)
[2024-09-11] MEDS: FOLIC ACID 0.4 MG TABLET PO (08:34)
[2024-09-11] MEDS: MULTIVITAMINS THERAPEUTIC TAB (*BKC) 1 TABLET PO (08:34)
[2024-09-11] MEDS: ATORVASTATIN 20 MG TABLET PO (08:34)
[2024-09-11] MEDS: DOCUSATE SODIUM 100 MG CAPSULE PO (12:03)
[2024-09-11] MEDS: traZODone HCL 25 MG TABLET PO (20:17)
[2024-09-11] MEDS: HEPARIN SODIUM 5,000 UNITS/ML VIAL 5000 UNITS SUB-Q (20:17)
[2024-09-11] MEDS: SENNA/DOCUSATE SODIUM TABLET 1 TAB PO (20:17)
[2024-09-12] VITALS (7 sets, daily range): BP systolic 102–146; BP diastolic 58–97; PULSE 60–80; RESP 14–18; TEMP 36.3–36.7; O2SAT 97–98
[2024-09-12] MEDS: clonazePAM (*CRX) 0.25 MG TABLET PO (02:31)
[2024-09-12 06:45] LABS: Basophils Absolute Auto 0.1 K/mm3 (0.0-0.1); Basophils Percent Auto 0.7 % (0.2-1.2); Eosinophils Absolute Auto 0.3 K/mm3 (0-0.3); Eosinophils Percent Auto 3.8 % (0-4.4); Hematocrit 37.7 % (42.0-52.0); Hemoglobin 12.4 g/dL (14.0-18.0); Immature Granulocyte Absolute 0.03 K/mm3 (0.00-0.031); Immature Granulocyte Percent A 0.4 % (0-0.5); Lymphocytes Percent Auto 17.2 % (18.3-44.2); Mean Corpuscular HGB Conc 32.9 g/dl (32-36); Mean Corpuscular Hemoglobin 31.7 pg (26-34); Mean Corpuscular Volume 96.4 fl (80-100); Mean Platelet Volume 9.5 fl (7.4-10.4); Monocytes Absolute Auto 0.7 K/mm3 (0.1-0.6); Monocytes Percent Auto 8.9 % (2.6-8.5); Neutrophils Absolute Auto 5.2 K/mm3 (1.3-6.7); Platelet Count Result 313 k/mm3 (150-375); Red Blood Count 3.91 M/mm3 (4.6-6.20); Red Cell Distribution Width 13.1 % (11.5-14.5); White Blood Count 7.5 K/mm3 (4.5-10.0)
[2024-09-12 07:01] LABS: Anion Gap 5 mmol/L (4-12); Blood Urea Nitrogen 13 mg/dL (9-20); Calcium 9.4 mg/dL (8.4-10.2); Carbon Dioxide 31 mmol/L (22-30); Chloride 98 mmol/L (98-107); Estimated CRCL calculation 68 ml/min; Estimated Glomerular Filt Rate > 60; Glucose 83 mg/dL (65-110); Potassium 3.5 mmol/L (3.4-5.0); Sodium 134 mmol/L (137-145)
--- NOTE | 2024-09-12 07:45 | P.PNIM_ITS ---
Progress Note: A&P Assessment and Plan (1) Cognitive impairment: Code(s): R41.89 - Other symptoms and signs involving cognitive functions and awareness Status: Acute Assessment and Plan: Likely to be acute on chronic with concussion. 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 His reports his mental status seems much closer to normal at this point. Notes that he has been impulsive about getting up without his walker, attributes some of it to being stubborn. He has early signs of dementia, and CT head shows chronic changes above. --Neurology is not in the hospital this week, outpatient referral to follow cognitive changes. 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 He remembered 2/3 words in 1 and 5 minutes but required a lot of prompting, otherwise 1/3 words. Otherwise exam is nonfocal --TSH recently normal. Check B12, HIV, RPR. (2) Fall: Qualifiers: Encounter type: initial encounter Qualified Code(s): W19.XXXA - Un specified fall, initial encounter Code(s): W19.XXXA - Unspecified fall, initial encounter Status: Inactive Assessment and Plan: Unclear cause of fall, but sounds like he probably tripped or fell due to weakness. Suspect he may be impulsive 2/2 poor executive function related to cognitive decline. No infectious symptoms --PT/OT recommendations for rehab or SNF --Orthostatics were negative --Echo to follo up murmur, aortic stenosis --Head CT no acute findings (3) Closed head injury: Qualifiers: Encounter type: initial encounter Qualified Code(s): S09.90XA - Unspecified injury of head, initial encounter Code(s): S09.90XA - Unspecified injury of head, initial encounter Status: Acute Assessment and Plan: Improving No headache Neuro exam nonfocal Treatment of fall, cognitive impairment as noted (4) Bilateral edema of lower extremity: Code(s): R60.0 - Localized edema Status: Acute Assessment and Plan: Improving Left ventricular systolic function is normal, estimated at 65-70%. left ventricular diastolic function is grade I diastolic dysfunction. No pulmonary edema seen on x-ray or clinically Continue with po torsemide (5) Hyponatremia: Code(s): E87.1 - Hypo-osmolality and hyponatremia Status: Acute Assessment and Plan: Improving torsemide 10mg and Salt tabs 500 BID with a fluid restriction due to significant lower extremity edema on admission, which has improved. --Free restriction 1500 mls --Unclear if hyponatremia is 2/2 diuretics or SIADH. May be medication related. Continued melatonin and trazodone since sodium normal, but could consider stopping and monitoring --Recently had urinary retention but watson has been removed and now off tamsulosin. Check PVR (6) Laceration of multiple sites of face: Code(s): S01.81XA - Laceration without foreign body of other part of head, initial encounter Status: Acute Assessment and Plan: Sutured in ED May be removed in 7-10 days Follow up with dentist for tooth (7) Swelling of left hand: Code(s): M79.89 - Other specified soft tissue disorders Status: Acute Assessment and Plan: x-ray shows Polyarticular osteoarthritis, no fracture Plan The patient is an 84-year-old man, with a history of hypertension, sick sinus syndrome s/p pacemaker, recent admission for hyponatremia and orthostatic hypotension who was admitted for a fall in the evening 10-14. Being treated for hyponatremia and concussion after a fall. 1500 ml free water restriction, regular diet, and p.o. torsemide. Hyponatremia is improved with fluid restriction and salt tabs, patient is medically stable for discharge, he will need placement. Time Spent With Patient Time with patient: Greater than 35 minutes Subjective Date/time seen: 09/12/24 07:45 Interval history: Na 134 this AM, from 130 yesterday with fluid restriction, will continue. Patient's left hand was swelling and bruising, x-ray shows Polyarticular osteoarthritis, no fracture. Patient is medically ready for discharge. He will need SNF for rehab placement. Review of Systems Review of Systems: No report of fevers, chills, nausea, vomiting, diarrhea, or abdominal pain Constitutional: Constitutional: Reports no additional constitutional complaints Eyes: Eyes: Reports no additional eye complaints ENT: Reports Normal hearing present Cardiovascular: Cardiovascular: Reports no additional cardiovascular complaints Respiratory: Respiratory: Reports no additional respiratory complaints Gastrointestinal: Gastrointestinal: Reports no additional gastrointestinal complaints Genitourinary: Genitourinary: Reports no additional male genitourinary complaints Musculoskeletal: Musculoskeletal: Reports no additional musculoskeletal complaints Integumentary/Breasts: Skin/Breast: Reports as per HPI Neurologic: Reports as per HPI and Reports Normal hearing present Psychiatric: Psychiatric: Reports no additional psychiatric complaints Exam Narrative: General - Awake and alert. No acute distress Eyes - PERRLA, EOM intact. Reflection in pupil to left eye (likely cataract) Head--, laceration/sutures to left judaism ENT - No thrush, broken tooth White reflection in left pupil. Vision equal bilaterally Neck - No noticeable or palpable swelling Lymph Nodes - No lymphadenopathy Cardiovascular - RRR 4/6 murmur heart best at the 2nd right ICS, no JVD Lungs: Clear to auscultation, No wheezing, use of accessory muscles, no crackles or wheezes. Skin - Skin warm and dry, no rashes. sutures to left scalp, small hematoma under left eye Abdomen - Normal bowel sounds, abdomen soft and nontender Extremities - Mild bilateral pitting LE edema, cyanosis or clubbing Musculoskeletal - 4/5 strength, limited range of motion left arm, no swollen or erythematous joints. Neurological ? Alert and oriented x 3, CN 2-12 grossly intact. EOMI, PERRLA. Unable to do serial 7's easily. Did get 1 number. Could count backward by 3's. Remembered 2/5 words in 1 and 5 minutes but gave him some prompting. Psych: Normal mood and affect Neuro: Cranial nerves: Yes Normal hearing present Objective Data Vital Signs Vital Signs: Vital Signs - 24 hr 09/11/24 08:00 09/11/24 08:00 09/11/24 08:30 Temperature 97.4 F L Pulse Rate 70 71 Respiratory Rate 16 Blood Pressure 153/68 H Pulse Oximetry 95 Oxygen Delivery Room Air 09/11/24 12:00 09/11/24 13:54 09/11/24 14:57 Temperature 97.7 F Pulse Rate 60 Respiratory Rate 16 Blood Pressure 163/64 H Pulse Oximetry 98 Oxygen Delivery Room Air Room Air 09/11/24 12:02 09/11/24 16:00 09/11/24 16:02 Temperature 97.4 F L Pulse Rate 76 68 60 Respiratory Rate 16 Blood Pressure 120/56 L Pulse Oximetry 98 Oxygen Delivery 09/11/24 20:00 09/11/24 20:00 09/12/24 00:00 Temperature 97.3 F L 97.4 F L Pulse Rate 61 63 Respiratory Rate 16 16 Blood Pressure 142/66 H 144/68 H Pulse Oximetry 98 98 Oxygen Delivery Room Air 09/12/24 03:50 09/11/24 20:00 09/12/24 00:00 Temperature 97.9 F Pulse Rate 60 71 65 Respiratory Rate 18 Blood Pressure 142/97 H Pulse Oximetry 98 Oxygen Delivery 09/12/24 04:00 Temperature Pulse Rate 61 Respiratory Rate Blood Pressure Pulse Oximetry Oxygen Delivery Intake/Output Intake/Output: Intake & Output 09/09/24 09/10/24 09/11/24 09/12/24 23:59 23:59 23:59 23:59 Intake Total 1316 1632 200 Output Total 200 1300 400 Balance 1116 332 -200 Meds/Results Medications: Active Medications Generic Name Dose Route Start Last Admin Trade Name Freq PRN Reason Stop Dose Admin Acetaminophen 650 mg 09/11/24 08:28 Acetaminophen 325 Mg Tablet PO Q6H PRN Fever Atorvastatin Calcium 20 mg 09/10/24 09:00 09/11/24 08:34 Atorvastatin 20 Mg Tablet PO 20 mg DAILY HERBIE Administration Clonazepam 0.25 mg 09/10/24 20:22 09/12/24 02:31 Clonazepam (*Crx) 0.25 Mg Tablet PO 0.25 mg QHS PRN Administration insomnia Cyanocobalamin 5,000 mcg 09/11/24 09:00 09/11/24 08:33 Cyanocobalamin 1,000 Mcg Tablet PO 5,000 mcg DAILY HERBIE Administration Dextrose 12.5 gm 09/10/24 02:53 Dextrose 50% 25 Gm/50 Ml Syringe IV PUSH PRN PRN Hypoglycemia Protocol Docusate Sodium 100 mg 09/10/24 20:22 09/11/24 12:03 Docusate Sodium 100 Mg Capsule PO 100 mg DAILY PRN Administration Constipation Fish Oil 1 gm 09/11/24 09:00 09/11/24 08:33 [place] 3 Polyunsat Fatty Acids 1 Gm Cap PO 1 gm DAILY HERBIE Administration Folic Acid 0.4 mg 09/11/24 09:00 09/11/24 08:34 Folic Acid 0.4 Mg Tablet PO 0.4 mg DAILY HERBIE Administration Glucagon 1 mg 09/10/24 02:53 Glucagon For Inj 1 Mg Vial IM PRN PRN Hypoglycemia Protocol Glucose 15 gm 09/10/24 02:53 Glucose Oral Gel 15 Gm Of Glucse In 37.5 Gm Tube PO PRN PRN Hypoglycemia Protocol Heparin Sodium (Porcine) 5,000 units 09/11/24 21:00 09/11/24 20:17 Heparin Sodium 5,000 Units/Ml Vial SUB-Q 5,000 units Q12HR HERBIE Administration Dextrose 1,000 mls @ 100 mls/hr 09/10/24 02:53 Dextrose 5% 1,000 Ml IVPB PRN PRN Hypoglycemia Protocol Melatonin 3 mg 09/10/24 19:47 09/10/24 20:02 Melatonin 3 Mg Tablet PO 3 mg HS PRN Administration insomnia Multivitamins Therapeutic 1 tablet 09/10/24 09:00 09/11/24 08:34 Multivitamins Therapeutic Tab (*Bkc) PO 1 tablet DAILY HERBIE Administration Perflutren Lipid Microsphere 0 ml 09/10/24 12:12 Perflutren Lipid Microspheres 1.5 Ml Vial Diluted To 10 Ml Total Volume IV PUSH 09/13/24 12:12 ONCE PRN adequate visualization Protocol Polyethylene Glycol 17 gm 09/12/24 09:00 Polyethylene Glycol 3350 17 Gm Powd.Pack PO QAM HERBIE Senna/Docusate Sodium 1 tab 09/11/24 21:00 09/11/24 20:17 Senna/Docusate Sodium Tablet PO 1 tab HS HERBIE Administration Sodium Chloride 500 mg 09/11/24 09:00 09/11/24 16:46 Sodium Chloride 500 Mg Tablet PO 500 mg BID HERBIE Administration Torsemide 10 mg 09/11/24 09:00 09/11/24 08:33 Torsemide 10 Mg Tablet PO 10 mg QAM HERBIE Administration Trazodone HCl 25 mg 09/10/24 21:00 09/11/24 20:17 Trazodone Hcl 25 Mg Tablet PO 25 mg HS HERBIE Administration Radiology Results: ITS Impressions Head CT 09/09/24 21:54 IMPRESSION: 1. Stable extensive nonspecific cerebral white matter disease, which likely represents chronic small vessel ischemic disease. Cervical Spine CT 09/09/24 21:56 IMPRESSION: 1. No fracture. 2. Severe cervical spondylosis. Chest X-Ray 09/09/24 22:00 IMPRESSION: 1. No acute cardiopulmonary disease. Lumbar Spine CT 09/09/24 22:00 IMPRESSION: 1. Severe lumbar spondylosis. 2. Anterior and posterior fusion procedures from L4 to S1. 3. Thoracolumbar dextroscoliosis. Hand X-Ray 09/11/24 13:04 IMPRESSION: 1. Polyarticular osteoarthritis. Labs Labs: Laboratory Results - last 24 hr 09/11/24 09/12/24 05:29 05:53 WBC 7.5 RBC 3.91 L Hgb 12.4 L Hct 37.7 L MCV 96.4 MCH 31.7 MCHC 32.9 RDW 13.1 Plt Count 313 MPV 9.5 Immature Gran % (Auto) 0.4 Neut % (Auto) 69.0 Lymph % (Auto) 17.2 L [place] % (Auto) 8.9 H Eos % (Auto) 3.8 Baso % (Auto) 0.7 Lymph # (Auto) 1.30 [place] # (Auto) 0.7 H Eos # (Auto) 0.3 Baso # (Auto) 0.1 Abs Immat Gran (auto) 0.03 Absolute Neuts (auto) 5.2 Absolute Nucleated RBC 0.000 Nucleated RBC % 0.0 Sodium 134 L Potassium 3.5 Chloride 98 Carbon Dioxide 31 H Anion Gap 5 BUN 13 Creatinine 0.70 Estim Creat Clear Calc 68 Estimated GFR > 60 Glucose 83 Calcium 9.4 RPR Non-reactive Quality VTE Prophylaxis VTE prophylaxis: pharmacologic ordered Hospitalist [facility] Advance Care Plan I have confirmed that the patient's Advanced Care Plan is present, code status is documented, or surrogate decision maker is listed in patient medical record.: Yes Medication Reconciliation I have utilized all available resources to obtain, update and review the patients current medications (includes all prescriptions, OTC, herbals, cannabis, and nutritional supplements).: Yes
[2024-09-12] MEDS: polyethylene glycoL 3350 17 GM POWD.PACK PO (10:05)
[2024-09-12] MEDS: ATORVASTATIN 20 MG TABLET PO (10:05)
[2024-09-12] MEDS: CYANOCOBALAMIN 1,000 MCG TABLET 5000 MCG PO (10:05)
[2024-09-12] MEDS: MULTIVITAMINS THERAPEUTIC TAB (*BKC) 1 TABLET PO (10:06)
[2024-09-12] MEDS: SODIUM CHLORIDE 500 MG TABLET PO ×2 (10:06→16:18)
[2024-09-12] MEDS: TORSEMIDE 10 MG TABLET PO (10:06)
[2024-09-12] MEDS: FOLIC ACID 0.4 MG TABLET PO (10:06)
[2024-09-12] MEDS: OMEGA 3 POLYUNSAT FATTY ACIDS 1 GM CAP PO (10:06)
[2024-09-12] MEDS: HEPARIN SODIUM 5,000 UNITS/ML VIAL 5000 UNITS SUB-Q ×2 (10:10→20:20)
[2024-09-12] MEDS: SENNA/DOCUSATE SODIUM TABLET 1 TAB PO (20:20)
[2024-09-12] MEDS: traZODone HCL 25 MG TABLET PO (20:20)
[2024-09-12] MEDS: MELATONIN 3 MG TABLET PO (22:26)
[2024-09-13 00:45] VITALS: BP 144/60; PULSE 61; RESP 16; TEMP 36.2; O2SAT 95
[2024-09-13] MEDS: clonazePAM (*CRX) 0.25 MG TABLET PO (01:15)
[2024-09-13 05:12] VITALS: BP 126/61; PULSE 63; RESP 16; TEMP 36.3; O2SAT 95
[2024-09-13 06:24] LABS: Basophils Percent Auto 0.6 % (0.2-1.2); Eosinophils Absolute Auto 0.2 K/mm3 (0-0.3); Eosinophils Percent Auto 3.4 % (0-4.4); Hematocrit 36.9 % (42.0-52.0); Hemoglobin 12.2 g/dL (14.0-18.0); Immature Granulocyte Absolute 0.04 K/mm3 (0.00-0.031); Immature Granulocyte Percent A 0.6 % (0-0.5); Lymphocytes Absolute Auto 1.15 K/mm3 (0.9-3.2); Lymphocytes Percent Auto 16.3 % (18.3-44.2); Mean Corpuscular HGB Conc 33.1 g/dl (32-36); Mean Corpuscular Hemoglobin 32.1 pg (26-34); Mean Corpuscular Volume 97.1 fl (80-100); Mean Platelet Volume 9.5 fl (7.4-10.4); Monocytes Absolute Auto 0.7 K/mm3 (0.1-0.6); Monocytes Percent Auto 9.9 % (2.6-8.5); Neutrophils Absolute Auto 4.9 K/mm3 (1.3-6.7); Neutrophils Percent Auto 69.2 % (45.5-73.1); Platelet Count Result 310 k/mm3 (150-375); Red Cell Distribution Width 13.3 % (11.5-14.5); White Blood Count 7.1 K/mm3 (4.5-10.0)
[2024-09-13 06:35] LABS: Anion Gap 4 mmol/L (4-12); Blood Urea Nitrogen 23 mg/dL (9-20); Calcium 9.1 mg/dL (8.4-10.2); Carbon Dioxide 30 mmol/L (22-30); Chloride 101 mmol/L (98-107); Estimated CRCL calculation 68 ml/min; Estimated Glomerular Filt Rate > 60; Glucose 89 mg/dL (65-110); Potassium 3.6 mmol/L (3.4-5.0); Sodium 135 mmol/L (137-145)
[2024-09-13 08:00] VITALS: BP 123/45; PULSE 60; RESP 18; TEMP 36.6; O2SAT 100
--- NOTE | 2024-09-13 08:40 | P.PNIM_ITS ---
Progress Note: A&P Assessment and Plan (1) Cognitive impairment: Code(s): R41.89 - Other symptoms and signs involving cognitive functions and awareness Status: Acute Assessment and Plan: Likely to be acute on chronic with concussion. 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 His reports his mental status seems much closer to normal at this point. Notes that he has been impulsive about getting up without his walker, attributes some of it to being stubborn. He has early signs of dementia, and CT head shows chronic changes above. --Neurology is not in the hospital this week, outpatient referral to follow cognitive changes. 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 He remembered 2/3 words in 1 and 5 minutes but required a lot of prompting, otherwise 1/3 words. Otherwise exam is nonfocal --TSH recently normal. Check B12, HIV, RPR. (2) Fall: Qualifiers: Encounter type: initial encounter Qualified Code(s): W19.XXXA - Unspecified fall, initial encounter Code(s): W19.XXXA - Unspecified fall, initial encounter Status: Inactive Assessment and Plan: Unclear cause of fall, but sounds like he probably tripped or fell due to weakness. Suspect he may be impulsive 2/2 poor executive function related to cognitive decline. No infectious symptoms --PT/OT recommendations for rehab or SNF --Orthostatics were negative --Echo to follo up murmur, aortic stenosis --Head CT no acute findings (3) Closed head injury: Qualifiers: Encounter type: initial encounter Qualified Code(s): S09.90XA - Unspecified injury of head, initial encounter Code(s): S09.90XA - Unspecified injury of head, initial encounter Status: Acute Assessment and Plan: Improving No headache Neuro exam nonfocal Treatment of fall, cognitive impairment as noted (4) Bilateral edema of lower extremity: Code(s): R60.0 - Localized edema Status: Acute Assessment and Plan: Improving Left ventricular systolic function is normal, estimated at 65-70%. left ventricular diastolic function is grade I diastolic dysfunction. No pulmonary edema seen on x-ray or clinically Continue with po torsemide (5) Hyponatremia: Code(s): E87.1 - Hypo-osmolality and hyponatremia Status: Acute Assessment and Plan: Improving torsemide 10mg and Salt tabs 500 BID with a fluid restriction due to significant lower extremity edema on admission, which has improved. --Free restriction 1500 mls --Unclear if hyponatremia is 2/2 diuretics or SIADH. May be medication related. Continued melatonin and trazodone since sodium normal, but could consider stopping and monitoring --Recently had urinary retention but watson has been removed and now off tamsulosin. Check PVR (6) Laceration of multiple sites of face: Code(s): S01.81XA - Laceration without foreign body of other part of head, initial encoun ter Status: Acute Assessment and Plan: Sutured in ED May be removed in 7-10 days Follow up with dentist for tooth (7) Swelling of left hand: Code(s): M79.89 - Other specified soft tissue disorders Status: Acute Assessment and Plan: x-ray shows Polyarticular osteoarthritis, no fracture Plan The patient is an 84-year-old man, with a history of hypertension, sick sinus syndrome s/p pacemaker, recent admission for hyponatremia and orthostatic hypotension who was admitted for a fall in the evening 10-14. Being treated for hyponatremia and concussion after a fall. 1500 ml free water restriction, regular diet, and p.o. torsemide. Na stable, the patient should be discharged on a 1500 mL, salt tabs and regular diet. Patient is stable for discharge, waiting on placement. Time Spent With Patient Time with patient: Greater than 35 minutes Subjective Date/time seen: 09/13/24 08:40 Interval history: Na stable, the patient should be discharged on a 1500 mL, salt tabs and regular diet. Patient is medically ready for discharge. He will need SNF or rehab placement. Review of Systems Review of Systems: No report of fevers, chills, nausea, vomiting, diarrhea, or abdominal pain Constitutional: Constitutional: Reports no additional constitutional complaints Eyes: Eyes: Reports no additional eye complaints ENT: Reports Normal hearing present Cardiovascular: Cardiovascular: Reports no additional cardiovascular complaints Respiratory: Respiratory: Reports no additional respiratory complaints Gastrointestinal: Gastrointestinal: Reports no additional gastrointestinal complaints Genitourinary: Genitourinary: Reports no additional male genitourinary complaints Musculoskeletal: Musculoskeletal: Reports no additional musculoskeletal complaints Integumentary/Breasts: Skin/Breast: Reports as per HPI Neurologic: Reports as per HPI and Reports Normal hearing present Psychiatric: Psychiatric: Reports no additional psychiatric complaints Exam Narrative: General - Awake and alert. No acute distress Eyes - PERRLA, EOM intact. Reflection in pupil to left eye (likely cataract) Head--, laceration/sutures to left religious ENT - No thrush, broken tooth White reflection in left pupil. Vision equal bilaterally Neck - No noticeable or palpable swelling Lymph Nodes - No lymphadenopathy Cardiovascular - RRR 4/6 murmur heart best at the 2nd right ICS, no JVD Lungs: Clear to auscultation, No wheezing, use of accessory muscles, no crackles or wheezes. Skin - Skin warm and dry, no rashes. sutures to left scalp, small hematoma under left eye Abdomen - Normal bowel sounds, abdomen soft and nontender Extremities - Mild bilateral pitting LE edema, cyanosis or clubbing Musculoskeletal - 4/5 strength, limited range of motion left arm, no swollen or erythematous joints. Neurological ? Alert and oriented x 3, CN 2-12 grossly intact. EOMI, PERRLA. Unable to do serial 7's easily. Did get 1 number. Could count backward by 3's. Remembered 2/5 words in 1 and 5 minutes but gave him some prompting. Psych: Normal mood and affect Neuro: Cranial nerves: Yes Normal hearing present Objective Data Vital Signs Vital Signs: Vital Signs - 24 hr 09/12/24 12:00 09/12/24 16:00 09/12/24 20:00 Temperature 97.9 F 98.0 F 97.3 F L Pulse Rate 80 72 78 Respiratory Rate 18 16 18 Blood Pressure 116/58 L 102/63 112/59 L Pulse Oximetry 97 98 97 Oxygen Delivery 09/12/24 20:00 09/13/24 00:45 09/13/24 05:12 Temperature 97.2 F L 97.4 F L Pulse Rate 61 63 Respiratory Rate 16 16 Blood Pressure 144/60 H 126/61 Pulse Oximetry 95 95 Oxygen Delivery Room Air Intake/Output Intake/Output: Intake & Output 09/10/24 09/11/24 09/12/24 09/13/24 23:59 23:59 23:59 23:59 Intake Total 1316 1632 1038 200 Output Total 200 1300 700 Balance 1116 332 338 200 Meds/Results Medications: Active Medications Generic Name Dose Route Start Last Admin Trade Name Freq PRN Reason Stop Dose Admin Acetaminophen 650 mg 09/11/24 08:28 Acetaminophen 325 Mg Tablet PO Q6H PRN Fever Artificial Tears 1 drop 09/12/24 16:04 Artificial Tears Ophth Soln 15 Ml Bottle EACH EYE QID PRN Dry Eye(s) Atorvastatin Calcium 20 mg 09/10/24 09:00 09/12/24 10:05 Atorvastatin 20 Mg Tablet PO 20 mg DAILY HERBIE Administration Clonazepam 0.25 mg 09/10/24 20:22 09/13/24 01:15 Clonazepam (*Crx) 0.25 Mg Tablet PO 0.25 mg QHS PRN Administration insomnia Cyanocobalamin 5,000 mcg 09/11/24 09:00 09/12/24 10:05 Cyanocobalamin 1,000 Mcg Tablet PO 5,000 mcg DAILY HERBIE Administration Dextrose 12.5 gm 09/10/24 02:53 Dextrose 50% 25 Gm/50 Ml Syringe IV PUSH PRN PRN Hypoglycemia Protocol Docusate Sodium 100 mg 09/10/24 20:22 09/11/24 12:03 Docusate Sodium 100 Mg Capsule PO 100 mg DAILY PRN Administration Constipation Fish Oil 1 gm 09/11/24 09:00 09/12/24 10:06 [place] 3 Polyunsat Fatty Acids 1 Gm Cap PO 1 gm DAILY HERBIE Administration Folic Acid 0.4 mg 09/11/24 09:00 09/12/24 10:06 Folic Acid 0.4 Mg Tablet PO 0.4 mg DAILY HERBIE Administration Glucagon 1 mg 09/10/24 02:53 Glucagon For Inj 1 Mg Vial IM PRN PRN Hypoglycemia Protocol Glucose 15 gm 09/10/24 02:53 Glucose Oral Gel 15 Gm Of Glucse In 37.5 Gm Tube PO PRN PRN Hypoglycemia Protocol Heparin Sodium (Porcine) 5,000 units 09/11/24 21:00 09/12/24 20:20 Heparin Sodium 5,000 Units/Ml Vial SUB-Q 5,000 units Q12HR HERBIE Administration Dextrose 1,000 mls @ 100 mls/hr 09/10/24 02:53 Dextrose 5% 1,000 Ml IVPB PRN PRN Hypoglycemia Protocol Melatonin 3 mg 09/10/24 19:47 09/12/24 22:26 Melatonin 3 Mg Tablet PO 3 mg HS PRN Administration insomnia Multivitamins Therapeutic 1 tablet 09/10/24 09:00 09/12/24 10:06 Multivitamins Therapeutic Tab (*Bkc) PO 1 tablet DAILY HERBIE Administration Perflutren Lipid Microsphere 0 ml 09/10/24 12:12 Perflutren Lipid Microspheres 1.5 Ml Vial Diluted To 10 Ml Total Volume IV PUSH 09/13/24 12:12 ONCE PRN adequate visualization Protocol Polyethylene Glycol 17 gm 09/12/24 09:00 09/12/24 10:05 Polyethylene Glycol 3350 17 Gm Powd.Pack PO 17 gm QAM HERBIE Administration Senna/Docusate Sodium 1 tab 09/11/24 21:00 09/12/24 20:20 Senna/Docusate Sodium Tablet PO 1 tab HS HERBIE Administration Sodium Chloride 500 mg 09/11/24 09:00 09/12/24 16:18 Sodium Chloride 500 Mg Tablet PO 500 mg BID HERBIE Administration Torsemide 10 mg 09/11/24 09:00 09/12/24 10:06 Torsemide 10 Mg Tablet PO 10 mg QAM HERBIE Administration Trazodone HCl 25 mg 09/10/24 21:00 09/12/24 20:20 Trazodone Hcl 25 Mg Tablet PO 25 mg HS HERBIE Administration Radiology Results: ITS Impressions Head CT 09/09/24 21:54 IMPRESSION: 1. Stable extensive nonspecific cerebral white matter disease, which likely represents chronic small vessel ischemic disease. Cervical Spine CT 09/09/24 21:56 IMPRESSION: 1. No fracture. 2. Severe cervical spondylosis. Chest X-Ray 09/09/24 22:00 IMPRESSION: 1. No acute cardiopulmonary disease. Lumbar Spine CT 09/09/24 22:00 IMPRESSION: 1. Severe lumbar spondylosis. 2. Anterior and posterior fusion procedures from L4 to S1. 3. Thoracolumbar dextroscoliosis. Hand X-Ray 09/11/24 13:04 IMPRESSION: 1. Polyarticular osteoarthritis. Labs Labs: Laboratory Results - last 24 hr 09/13/24 05:23 WBC 7.1 RBC 3.80 L Hgb 12.2 L Hct 36.9 L MCV 97.1 MCH 32.1 MCHC 33.1 RDW 13.3 Plt Count 310 MPV 9.5 Immature Gran % (Auto) 0.6 H Neut % (Auto) 69.2 Lymph % (Auto) 16.3 L [place] % (Auto) 9.9 H Eos % (Auto) 3.4 Baso % (Auto) 0.6 Lymph # (Auto) 1.15 [place] # (Auto) 0.7 H Eos # (Auto) 0.2 Baso # (Auto) 0.0 Abs Immat Gran (auto) 0.04 H Absolute Neuts (auto) 4.9 Absolute Nucleated RBC 0.000 Nucleated RBC % 0.0 Sodium 135 L Potassium 3.6 Chloride 101 Carbon Dioxide 30 Anion Gap 4 BUN 23 H D Creatinine 0.70 Estim Creat Clear Calc 68 Estimated GFR > 60 Glucose 89 Calcium 9.1 Quality VTE Prophylaxis VTE prophylaxis: pharmacologic ordered Hospitalist [facility] Advance Care Plan I have confirmed that the patient's Advanced Care Plan is present, code status is documented, or surrogate decision maker is listed in patient medical record.: Yes Medication Reconciliation I have utilized all available resources to obtain, update and review the patients current medications (includes all prescriptions, OTC, herbals, cannabis, and nutritional supplements).: Yes
[2024-09-13] MEDS: SODIUM CHLORIDE 500 MG TABLET PO ×2 (09:30→16:37)
[2024-09-13] MEDS: MULTIVITAMINS THERAPEUTIC TAB (*BKC) 1 TABLET PO (09:30)
[2024-09-13] MEDS: HEPARIN SODIUM 5,000 UNITS/ML VIAL 5000 UNITS SUB-Q ×2 (09:30→20:20)
[2024-09-13] MEDS: FOLIC ACID 0.4 MG TABLET PO (09:30)
[2024-09-13] MEDS: TORSEMIDE 10 MG TABLET PO (09:30)
[2024-09-13] MEDS: polyethylene glycoL 3350 17 GM POWD.PACK PO (09:30)
[2024-09-13] MEDS: OMEGA 3 POLYUNSAT FATTY ACIDS 1 GM CAP PO (09:30)
[2024-09-13] MEDS: CYANOCOBALAMIN 1,000 MCG TABLET 5000 MCG PO (09:30)
[2024-09-13] MEDS: ATORVASTATIN 20 MG TABLET PO (09:35)
[2024-09-13 12:00] VITALS: BP 120/54; PULSE 78; RESP 18; TEMP 37.1; O2SAT 100
[2024-09-13 15:33] VITALS: BP 122/60; PULSE 68; RESP 18; TEMP 36.6; O2SAT 100
[2024-09-13 20:00] VITALS: BP 117/55; PULSE 61; RESP 12; TEMP 36.9; O2SAT 96
[2024-09-13] MEDS: SENNA/DOCUSATE SODIUM TABLET 1 TAB PO (20:20)
[2024-09-13] MEDS: traZODone HCL 25 MG TABLET PO (20:20)
[2024-09-14] VITALS: BP 146/81; PULSE 58; RESP 12; TEMP 36.6; O2SAT 97
[2024-09-14] MEDS: MELATONIN 3 MG TABLET PO (02:57)
[2024-09-14] MEDS: clonazePAM (*CRX) 0.25 MG TABLET PO (02:57)
[2024-09-14 04:00] VITALS: BP 127/52; PULSE 61; RESP 12; TEMP 36.4; O2SAT 98
[2024-09-14 06:45] LABS: Basophils Absolute Auto 0.1 K/mm3 (0.0-0.1); Basophils Percent Auto 0.7 % (0.2-1.2); Eosinophils Absolute Auto 0.3 K/mm3 (0-0.3); Eosinophils Percent Auto 3.8 % (0-4.4); Hematocrit 38.2 % (42.0-52.0); Hemoglobin 12.2 g/dL (14.0-18.0); Immature Granulocyte Absolute 0.02 K/mm3 (0.00-0.031); Immature Granulocyte Percent A 0.3 % (0-0.5); Lymphocytes Absolute Auto 1.09 K/mm3 (0.9-3.2); Mean Corpuscular HGB Conc 31.9 g/dl (32-36); Mean Corpuscular Hemoglobin 31.5 pg (26-34); Mean Corpuscular Volume 98.7 fl (80-100); Mean Platelet Volume 9.6 fl (7.4-10.4); Monocytes Absolute Auto 0.7 K/mm3 (0.1-0.6); Monocytes Percent Auto 10.7 % (2.6-8.5); Neutrophils Absolute Auto 4.7 K/mm3 (1.3-6.7); Neutrophils Percent Auto 68.5 % (45.5-73.1); Platelet Count Result 316 k/mm3 (150-375); Red Blood Count 3.87 M/mm3 (4.6-6.20); Red Cell Distribution Width 13.4 % (11.5-14.5); White Blood Count 6.8 K/mm3 (4.5-10.0)
[2024-09-14 07:05] LABS: Anion Gap 5 mmol/L (4-12); Blood Urea Nitrogen 20 mg/dL (9-20); Calcium 9.3 mg/dL (8.4-10.2); Carbon Dioxide 30 mmol/L (22-30); Chloride 101 mmol/L (98-107); Estimated CRCL calculation 78 ml/min; Estimated Glomerular Filt Rate > 60; Glucose 81 mg/dL (65-110); Potassium 3.5 mmol/L (3.4-5.0); Sodium 136 mmol/L (137-145)
[2024-09-14 07:26] VITALS: BP 110/46; PULSE 65; RESP 12; TEMP 36.7; O2SAT 96
--- NOTE | 2024-09-14 07:34 | P.PNIM_ITS ---
Progress Note: A&P Assessment and Plan (1) Cognitive impairment: Code(s): R41.89 - Other symptoms and signs involving cognitive functions and awareness Status: Acute Assessment and Plan: Likely to be acute on chronic with concussion. 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 His reports his mental status seems much closer to normal at this point. Notes that he has been impulsive about getting up without his walker, attributes some of it to being stubborn. He has early signs of dementia, and CT head shows chronic changes above. --Neurology is not in the hospital this week, outpatient referral to follow cognitive changes. 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 He remembered 2/3 words in 1 and 5 minutes but required a lot of prompting, otherwise 1/3 words. Otherwise exam is nonfocal --TSH recently normal. Check B12, HIV, RPR. (2) Fall: Qualifiers: Encounter type: initial encounter Qualified Code(s): W19.XXXA - Unspecified fall, initial encounter Code(s): W19.XXXA - Unspecified fall, initial encounter Status: Inactive Assessment and Plan: Unclear cause of fall, but sounds like he probably tripped or fell due to weakness. Suspect he may be impulsive 2/2 poor executive function related to cognitive decline. No infectious symptoms --PT/OT recommendations for rehab or SNF --Orthostatics were negative --Echo to follo up murmur, aortic stenosis --Head CT no acute findings (3) Closed head injury: Qualifiers: Encounter type: initial encounter Qualified Code(s): S09.90XA - Unspecified injury of head, initial encounter Code(s): S09.90XA - Unspecified injury of head, initial encounter Status: Acute Assessment and Plan: Improving No headache Neuro exam nonfocal Treatment of fall, cognitive impairment as noted (4) Bilateral edema of lower extremity: Code(s): R60.0 - Localized edema Status: Acute Assessment and Plan: Improving Left ventricular systolic function is normal, estimated at 65-70%. left ventricular diastolic function is grade I diastolic dysfunction. No pulmonary edema seen on x-ray or clinically Continue with po torsemide (5) Hyponatremia: Code(s): E87.1 - Hypo-osmolality and hyponatremia Status: Acute Assessment and Plan: Improving torsemide 10mg and Salt tabs 500 BID with a fluid restriction due to significant lower extremity edema on admission, which has improved. --Free restriction 1500 mls --Unclear if hyponatremia is 2/2 diuretics or SIADH. May be medication related. Continued melatonin and trazodone since sodium normal, but could consider stopping and monitoring --Recently had urinary retention but watson has been removed and now off tamsulosin. Check PVR (6) Laceration of multiple sites of face: Code(s): S01.81XA - Laceration without foreign body of other part of head, initial encoun ter Status: Acute Assessment and Plan: Sutured in ED May be removed in 7-10 days Follow up with dentist for tooth (7) Swelling of left hand: Code(s): M79.89 - Other specified soft tissue disorders Status: Acute Assessment and Plan: x-ray shows Polyarticular osteoarthritis, no fracture Plan The patient is an 84-year-old man, with a history of hypertension, sick sinus syndrome s/p pacemaker, recent admission for hyponatremia and orthostatic hypotension who was admitted for a fall in the evening 10-14. Being treated for hyponatremia and concussion after a fall. 1500 ml free water restriction, regular diet, and p.o. torsemide. Na stable, the patient should be discharged on a 1500 mL, salt tabs and regular diet. Patient is stable for discharge, waiting on placement. No changes to current plan. Time Spent With Patient Time with patient: 25 - 35 minutes Subjective Date/time seen: 09/14/24 07:34 Interval history: Na stable, the patient should be discharged on a 1500 mL fluid restriction, salt tabs and regular diet. Patient is medically ready for discharge. He will need SNF or rehab placement. Acute events overnight. Review of Systems Review of Systems: No report of fevers, chills, nausea, vomiting, diarrhea, or abdominal pain Constitutional: Constitutional: Reports no additional constitutional complaints Eyes: Eyes: Reports no additional eye complaints ENT: Reports Normal hearing present Cardiovascular: Cardiovascular: Reports no additional cardiovascular complaints Respiratory: Respiratory: Reports no additional respiratory complaints Gastrointestinal: Gastrointestinal: Reports no additional gastrointestinal complaints Genitourinary: Genitourinary: Reports no additional male genitourinary complaints Musculoskeletal: Musculoskeletal: Reports no additional musculoskeletal complaints Integumentary/Breasts: Skin/Breast: Reports as per HPI Neurologic: Reports as per HPI and Reports Normal hearing present Psychiatric: Psychiatric: Reports no additional psychiatric complaints Exam Narrative: General - Awake and alert. No acute distress Eyes - PERRLA, EOM intact. Reflection in pupil to left eye (likely cataract) Head--, laceration/sutures to left [facility] - No thrush, broken tooth White reflection in left pupil. Vision equal bilaterally Neck - No noticeable or palpable swelling Lymph Nodes - No lymphadenopathy Cardiovascular - RRR 4/6 murmur heart best at the 2nd right ICS, no JVD Lungs: Clear to auscultation, No wheezing, use of accessory muscles, no crackles or wheezes. Skin - Skin warm and dry, no rashes. sutures to left scalp, small hematoma under left eye Abdomen - Normal bowel sounds, abdomen soft and nontender Extremities - Mild bilateral pitting LE edema, cyanosis or clubbing Musculoskeletal - 4/5 strength, limited range of motion left arm, no swollen or erythematous joints. Neurological ? Alert and oriented x 3, CN 2-12 grossly intact. EOMI, PERRLA. Unable to do serial 7's easily. Did get 1 number. Could count backward by 3's. Remembered 2/5 words in 1 and 5 minutes but gave him some prompting. Psych: Normal mood and affect Neuro: Cranial nerves: Yes Normal hearing present Objective Data Vital Signs Vital Signs: Vital Signs - 24 hr 09/13/24 08:00 09/13/24 08:00 09/13/24 12:00 Temperature 97.8 F 98.8 F Pulse Rate 60 78 Respiratory Rate 18 18 Blood Pressure 123/45 L 120/54 L Pulse Oximetry 100 100 100 Oxygen Delivery Room Air 09/13/24 15:33 09/13/24 20:00 09/14/24 00:00 Temperature 97.8 F 98.4 F 97.9 F Pulse Rate 68 61 58 L Respiratory Rate 18 12 12 Blood Pressure 122/60 117/55 L 146/81 H Pulse Oximetry 100 96 97 Oxygen Delivery 09/14/24 04:00 Temperature 97.5 F L Pulse Rate 61 Respiratory Rate 12 Blood Pressure 127/52 L Pulse Oximetry 98 Oxygen Delivery Intake/Output Intake/Output: Intake & Output 09/11/24 09/12/24 09/13/24 09/14/24 23:59 23:59 23:59 23:59 Intake Total 1632 1038 2260 150 Output Total 1300 700 Balance 605 583 6603 150 Meds/Results Medications: Active Medications Generic Name Dose Route Start Last Admin Trade Name Freq PRN Reason Stop Dose Admin Acetaminophen 650 mg 09/11/24 08:28 Acetaminophen 325 Mg Tablet PO Q6H PRN Fever Artificial Tears 1 drop 09/12/24 16:04 Artificial Tears Ophth Soln 15 Ml Bottle EACH EYE QID PRN Dry Eye(s) Atorvastatin Calcium 20 mg 09/10/24 09:00 09/13/24 09:35 Atorvastatin 20 Mg Tablet PO 20 mg DAILY HERBIE Administration Clonazepam 0.25 mg 09/10/24 20:22 09/14/24 02:57 Clonazepam (*Crx) 0.25 Mg Tablet PO 0.25 mg QHS PRN Administration insomnia Cyanocobalamin 5,000 mcg 09/11/24 09:00 09/13/24 09:30 Cyanocobalamin 1,000 Mcg Tablet PO 5,000 mcg DAILY HERBIE Administration Dextrose 12.5 gm 09/10/24 02:53 Dextrose 50% 25 Gm/50 Ml Syringe IV PUSH PRN PRN Hypoglycemia Protocol Docusate Sodium 100 mg 09/10/24 20:22 09/11/24 12:03 Docusate Sodium 100 Mg Capsule PO 100 mg DAILY PRN Administration Constipation Fish Oil 1 gm 09/11/24 09:00 09/13/24 09:30 [place] 3 Polyunsat Fatty Acids 1 Gm Cap PO 1 gm DAILY HERBIE Administration Folic Acid 0.4 mg 09/11/24 09:00 09/13/24 09:30 Folic Acid 0.4 Mg Tablet PO 0.4 mg DAILY HERBIE Administration Glucagon 1 mg 09/10/24 02:53 Glucagon For Inj 1 Mg Vial IM PRN PRN Hypoglycemia Protocol Glucose 15 gm 09/10/24 02:53 Glucose Oral Gel 15 Gm Of Glucse In 37.5 Gm Tube PO PRN PRN Hypoglycemia Protocol Heparin Sodium (Porcine) 5,000 units 09/11/24 21:00 09/13/24 20:20 Heparin Sodium 5,000 Units/Ml Vial SUB-Q 5,000 units Q12HR HERBIE Administration Dextrose 1,000 mls @ 100 mls/hr 09/10/24 02:53 Dextrose 5% 1,000 Ml IVPB PRN PRN Hypoglycemia Protocol Melatonin 3 mg 09/10/24 19:47 09/14/24 02:57 Melatonin 3 Mg Tablet PO 3 mg HS PRN Administration insomnia Multivitamins Therapeutic 1 tablet 09/10/24 09:00 09/13/24 09:30 Multivitamins Therapeutic Tab (*Bkc) PO 1 tablet DAILY HERBIE Administration Polyethylene Glycol 17 gm 09/12/24 09:00 09/13/24 09:30 Polyethylene Glycol 3350 17 Gm Powd.Pack PO 17 gm QAM HERBIE Administration Senna/Docusate Sodium 1 tab 09/11/24 21:00 09/13/24 20:20 Senna/Docusate Sodium Tablet PO 1 tab HS HERBIE Administration Sodium Chloride 500 mg 09/11/24 09:00 09/13/24 16:37 Sodium Chloride 500 Mg Tablet PO 500 mg BID HERBIE Administration Torsemide 10 mg 09/11/24 09:00 09/13/24 09:30 Torsemide 10 Mg Tablet PO 10 mg QAM HERBIE Administration Trazodone HCl 25 mg 09/10/24 21:00 09/13/24 20:20 Trazodone Hcl 25 Mg Tablet PO 25 mg HS HERBIE Administration Radiology Results: ITS Impressions Head CT 09/09/24 21:54 IMPRESSION: 1. Stable extensive nonspecific cerebral white matter disease, which likely represents chronic small vessel ischemic disease. Cervical Spine CT 09/09/24 21:56 IMPRESSION: 1. No fracture. 2. Severe cervical spondylosis. Chest X-Ray 09/09/24 22:00 IMPRESSION: 1. No acute cardiopulmonary disease. Lumbar Spine CT 09/09/24 22:00 IMPRESSION: 1. Severe lumbar spondylosis. 2. Anterior and posterior fusion procedures from L4 to S1. 3. Thoracolumbar dextroscoliosis. Hand X-Ray 09/11/24 13:04 IMPRESSION: 1. Polyarticular osteoarthritis. Labs Labs: Laboratory Results - last 24 hr 09/14/24 06:05 WBC 6.8 RBC 3.87 L Hgb 12.2 L Hct 38.2 L MCV 98.7 MCH 31.5 MCHC 31.9 L RDW 13.4 Plt Count 316 MPV 9.6 Immature Gran % (Auto) 0.3 Neut % (Auto) 68.5 Lymph % (Auto) 16.0 L [place] % (Auto) 10.7 H Eos % (Auto) 3.8 Baso % (Auto) 0.7 Lymph # (Auto) 1.09 [place] # (Auto) 0.7 H Eos # (Auto) 0.3 Baso # (Auto) 0.1 Abs Immat Gran (auto) 0.02 Absolute Neuts (auto) 4.7 Absolute Nucleated RBC 0.000 Nucleated RBC % 0.0 Sodium 136 L Potassium 3.5 Chloride 101 Carbon Dioxide 30 Anion Gap 5 BUN 20 Creatinine 0.60 L Estim Creat Clear Calc 78 Estimated GFR > 60 Glucose 81 Calcium 9.3 Quality VTE Prophylaxis VTE prophylaxis: pharmacologic ordered
[2024-09-14] MEDS: polyethylene glycoL 3350 17 GM POWD.PACK PO (08:17)
[2024-09-14] MEDS: HEPARIN SODIUM 5,000 UNITS/ML VIAL 5000 UNITS SUB-Q ×2 (08:18→21:21)
[2024-09-14] MEDS: OMEGA 3 POLYUNSAT FATTY ACIDS 1 GM CAP PO (08:21)
[2024-09-14] MEDS: MULTIVITAMINS THERAPEUTIC TAB (*BKC) 1 TABLET PO (08:21)
[2024-09-14] MEDS: FOLIC ACID 0.4 MG TABLET PO (08:21)
[2024-09-14] MEDS: ATORVASTATIN 20 MG TABLET PO (08:21)
[2024-09-14] MEDS: CYANOCOBALAMIN 1,000 MCG TABLET 5000 MCG PO (08:22)
[2024-09-14] MEDS: TORSEMIDE 10 MG TABLET PO (08:23)
[2024-09-14] MEDS: SODIUM CHLORIDE 500 MG TABLET PO ×2 (08:23→16:04)
[2024-09-14 12:08] VITALS: BP 128/65; PULSE 64; RESP 16; TEMP 36.5; O2SAT 99
[2024-09-14] MEDS: DOCUSATE SODIUM 100 MG CAPSULE PO (12:56)
[2024-09-14 16:00] VITALS: BP 120/62; PULSE 62; RESP 18; TEMP 36.6; O2SAT 98
[2024-09-14] MEDS: SENNA/DOCUSATE SODIUM TABLET 1 TAB PO (21:22)
[2024-09-14 21:45] VITALS: BP 146/75; PULSE 60; RESP 18; TEMP 37.1; O2SAT 99
[2024-09-15 00:40] VITALS: BP 135/66; PULSE 60; RESP 18; TEMP 36.8; O2SAT 100
[2024-09-15] MEDS: MELATONIN 3 MG TABLET PO (02:58)
[2024-09-15] MEDS: clonazePAM (*CRX) 0.25 MG TABLET PO (02:58)
[2024-09-15] MEDS: traZODone HCL 25 MG TABLET PO ×2 (02:58→20:13)
[2024-09-15 04:00] VITALS: BP 120/47; PULSE 59; RESP 18; TEMP 36.6; O2SAT 99
[2024-09-15 08:00] VITALS: BP 143/67; PULSE 77; RESP 18; TEMP 36.3; O2SAT 92
--- NOTE | 2024-09-15 08:05 | P.PNIM_ITS ---
Progress Note: A&P Assessment and Plan (1) Cognitive impairment: Code(s): R41.89 - Other symptoms and signs involving cognitive functions and awareness Status: Acute Assessment and Plan: Likely to be acute on chronic with concussion. 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 His reports his mental status seems much closer to normal at this point. Notes that he has been impulsive about getting up without his walker, attributes some of it to being stubborn. He has early signs of dementia, and CT head shows chronic changes above. --Neurology is not in the hospital this week, outpatient referral to follow cognitive changes. 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 He remembered 2/3 words in 1 and 5 minutes but required a lot of prompting, otherwise 1/3 words. Otherwise exam is nonfocal --TSH recently normal. Check B12, HIV, RPR. (2) Fall: Qualifiers: Encounter type: initial encounter Qualified Code(s): W19.XXXA - Unspecified fall, initial encounter Code(s): W19.XXXA - Unspecified fall, initial encounter Status: Inactive Assessment and Plan: Unclear cause of fall, but sounds like he probably tripped or fell due to weakness. Suspect he may be impulsive 2/2 poor executive function related to cognitive decline. No infectious symptoms --PT/OT recommendations for rehab or SNF --Orthostatics were negative --Echo to follo up murmur, aortic stenosis --Head CT no acute findings (3) Closed head injury: Qualifiers: Encounter type: initial encounter Qualified Code(s): S09.90XA - Unspecified injury of head, initial encounter Code(s): S09.90XA - Unspecified injury of head, initial encounter Status: Acute Assessment and Plan: Improving No headache Neuro exam nonfocal Treatment of fall, cognitive impairment as noted (4) Bilateral edema of lower extremity: Code(s): R60.0 - Localized edema Status: Acute Assessment and Plan: Improving Left ventricular systolic function is normal, estimated at 65-70%. left ventricular diastolic function is grade I diastolic dysfunction. No pulmonary edema seen on x-ray or clinically Continue with po torsemide (5) Hyponatremia: Code(s): E87.1 - Hypo-osmolality and hyponatremia Status: Acute Assessment and Plan: Improving torsemide 10mg and Salt tabs 500 BID with a fluid restriction due to significant lower extremity edema on admission, which has improved. --Free restriction 1500 mls --Unclear if hyponatremia is 2/2 diuretics or SIADH. May be medication related. Continued melatonin and trazodone since sodium normal, but could consider stopping and monitoring --Recently had urinary retention but watson has been removed and now off tamsulosin. Check PVR (6) Laceration of multiple sites of face: Code(s): S01.81XA - Laceration without foreign body of other part of head, initial encoun ter Status: Acute Assessment and Plan: Sutured in ED May be removed in 7-10 days Follow up with dentist for tooth (7) Swelling of left hand: Code(s): M79.89 - Other specified soft tissue disorders Status: Acute Assessment and Plan: x-ray shows Polyarticular osteoarthritis, no fracture Plan The patient is an 84-year-old man, with a history of hypertension, sick sinus syndrome s/p pacemaker, recent admission for hyponatremia and orthostatic hypotension who was admitted for a fall in the evening 10-14. Being treated for hyponatremia and concussion after a fall. 1500 ml free water restriction, regular diet, and p.o. torsemide. Na stable, the patient should be discharged on a 1500 mL, salt tabs and regular diet. Patient is stable for discharge, waiting on insurance authorization. No changes to current plan. Time Spent With Patient Time with patient: 25 - 35 minutes Subjective Date/time seen: 09/15/24 08:05 Interval history: Na stable, the patient should be discharged on a 1500 mL fluid restriction, salt tabs and regular diet. Patient is medically ready for discharge. Waiting on insurance authorization. No Acute events overnight. Review of Systems Review of Systems: No report of fevers, chills, nausea, vomiting, diarrhea, or abdominal pain Constitutional: Constitutional: Reports no additional constitutional complaints Eyes: Eyes: Reports no additional eye complaints ENT: Reports Normal hearing present Cardiovascular: Cardiovascular: Reports no additional cardiovascular complaints Respiratory: Respiratory: Reports no additional respiratory complaints Gastrointestinal: Gastrointestinal: Reports no additional gastrointestinal complaints Genitourinary: Genitourinary: Reports no additional male genitourinary complaints Musculoskeletal: Musculoskeletal: Reports no additional musculoskeletal complaints Integumentary/Breasts: Skin/Breast: Reports as per HPI Neurologic: Reports as per HPI and Reports Normal hearing present Psychiatric: Psychiatric: Reports no additional psychiatric complaints Exam Narrative: General - Awake and alert. No acute distress Eyes - PERRLA, EOM intact. Reflection in pupil to left eye (likely cataract) Head--, laceration/sutures to left [facility] - No thrush, broken tooth White reflection in left pupil. Vision equal bilaterally Neck - No noticeable or palpable swelling Lymph Nodes - No lymphadenopathy Cardiovascular - RRR 4/6 murmur heart best at the 2nd right ICS, no JVD Lungs: Clear to auscultation, No wheezing, use of accessory muscles, no crackles or wheezes. Skin - Skin warm and dry, no rashes. sutures to left scalp, small hematoma under left eye Abdomen - Normal bowel sounds, abdomen soft and nontender Extremities - Mild bilateral pitting LE edema, cyanosis or clubbing Musculoskeletal - 4/5 strength, limited range of motion left arm, no swollen or erythematous joints. Neurological ? Alert and oriented x 3, CN 2-12 grossly intact. EOMI, PERRLA. Unable to do serial 7's easily. Did get 1 number. Could count backward by 3's. Remembered 2/5 words in 1 and 5 minutes but gave him some prompting. Psych: Normal mood and affect Neuro: Cranial nerves: Yes Normal hearing present Objective Data Vital Signs Vital Signs: Vital Signs - 24 hr 09/14/24 12:08 09/14/24 16:00 09/14/24 21:45 Temperature 97.7 F 97.8 F 98.7 F Pulse Rate 64 62 60 Respiratory Rate 16 18 18 Blood Pressure 128/65 120/62 146/75 H Pulse Oximetry 99 98 99 09/15/24 00:40 09/15/24 04:00 Temperature 98.2 F 97.8 F Pulse Rate 60 59 L Respiratory Rate 18 18 Blood Pressure 135/66 120/47 L Pulse Oximetry 100 99 Intake/Output Intake/Output: Intake & Output 09/12/24 09/13/24 09/14/24 09/15/24 23:59 23:59 23:59 23:59 Intake Total 1038 2260 780 390 Output Total 700 Balance 338 2260 780 390 Meds/Results Medications: Active Medications Generic Name Dose Route Start Last Admin Trade Name Freq PRN Reason Stop Dose Admin Acetaminophen 650 mg 09/11/24 08:28 Acetaminophen 325 Mg Tablet PO Q6H PRN Fever Artificial Tears 1 drop 09/12/24 16:04 Artificial Tears Ophth Soln 15 Ml Bottle EACH EYE QID PRN Dry Eye(s) Atorvastatin Calcium 20 mg 09/10/24 09:00 09/14/24 08:21 Atorvastatin 20 Mg Tablet PO 20 mg DAILY HERBIE Administration Clonazepam 0.25 mg 09/10/24 20:22 09/15/24 02:58 Clonazepam (*Crx) 0.25 Mg Tablet PO 0.25 mg QHS PRN Administration insomnia Cyanocobalamin 5,000 mcg 09/11/24 09:00 09/14/24 08:22 Cyanocobalamin 1,000 Mcg Tablet PO 5,000 mcg DAILY HERBIE Administration Dextrose 12.5 gm 09/10/24 02:53 Dextrose 50% 25 Gm/50 Ml Syringe IV PUSH PRN PRN Hypoglycemia Protocol Docusate Sodium 100 mg 09/10/24 20:22 09/14/24 12:56 Docusate Sodium 100 Mg Capsule PO 100 mg DAILY PRN Administration Constipation Fish Oil 1 gm 09/11/24 09:00 09/14/24 08:21 [place] 3 Polyunsat Fatty Acids 1 Gm Cap PO 1 gm DAILY HERBIE Administration Folic Acid 0.4 mg 09/11/24 09:00 09/14/24 08:21 Folic Acid 0.4 Mg Tablet PO 0.4 mg DAILY HERBIE Administration Glucagon 1 mg 09/10/24 02:53 Glucagon For Inj 1 Mg Vial IM PRN PRN Hypoglycemia Protocol Glucose 15 gm 09/10/24 02:53 Glucose Oral Gel 15 Gm Of Glucse In 37.5 Gm Tube PO PRN PRN Hypoglycemia Protocol Heparin Sodium (Porcine) 5,000 units 09/11/24 21:00 09/14/24 21:21 Heparin Sodium 5,000 Units/Ml Vial SUB-Q 5,000 units Q12HR HERBIE Administration Dextrose 1,000 mls @ 100 mls/hr 09/10/24 02:53 Dextrose 5% 1,000 Ml IVPB PRN PRN Hypoglycemia Protocol Melatonin 3 mg 09/10/24 19:47 09/15/24 02:58 Melatonin 3 Mg Tablet PO 3 mg HS PRN Administration insomnia Multivitamins Therapeutic 1 tablet 09/10/24 09:00 09/14/24 08:21 Multivitamins Therapeutic Tab (*Bkc) PO 1 tablet DAILY HERBIE Administration Polyethylene Glycol 17 gm 09/12/24 09:00 09/14/24 08:17 Polyethylene Glycol 3350 17 Gm Powd.Pack PO 17 gm QAM HERBIE Administration Senna/Docusate Sodium 1 tab 09/11/24 21:00 09/14/24 21:22 Senna/Docusate Sodium Tablet PO 1 tab HS HERBIE Administration Sodium Chloride 500 mg 09/11/24 09:00 09/14/24 16:04 Sodium Chloride 500 Mg Tablet PO 500 mg BID HERBIE Administration Torsemide 10 mg 09/11/24 09:00 09/14/24 08:23 Torsemide 10 Mg Tablet PO 10 mg QAM HERBIE Administration Trazodone HCl 25 mg 09/10/24 21:00 09/15/24 02:58 Trazodone Hcl 25 Mg Tablet PO 25 mg HS HERBIE Administration Radiology Results: ITS Impressions Head CT 09/09/24 21:54 IMPRESSION: 1. Stable extensive nonspecific cerebral white matter disease, which likely represents chronic small vessel ischemic disease. Cervical Spine CT 09/09/24 21:56 IMPRESSION: 1. No fracture. 2. Severe cervical spondylosis. Chest X-Ray 09/09/24 22:00 IMPRESSION: 1. No acute cardiopulmonary disease. Lumbar Spine CT 09/09/24 22:00 IMPRESSION: 1. Severe lumbar spondylosis. 2. Anterior and posterior fusion procedures from L4 to S1. 3. Thoracolumbar dextroscoliosis. Hand X-Ray 09/11/24 13:04 IMPRESSION: 1. Polyarticular osteoarthritis. Quality VTE Prophylaxis VTE prophylaxis: pharmacologic ordered
[2024-09-15] MEDS: TORSEMIDE 10 MG TABLET PO (08:41)
[2024-09-15] MEDS: OMEGA 3 POLYUNSAT FATTY ACIDS 1 GM CAP PO (08:41)
[2024-09-15] MEDS: MULTIVITAMINS THERAPEUTIC TAB (*BKC) 1 TABLET PO (08:41)
[2024-09-15] MEDS: ATORVASTATIN 20 MG TABLET PO (08:41)
[2024-09-15] MEDS: CYANOCOBALAMIN 1,000 MCG TABLET 5000 MCG PO (08:41)
[2024-09-15] MEDS: FOLIC ACID 0.4 MG TABLET PO (08:42)
[2024-09-15] MEDS: polyethylene glycoL 3350 17 GM POWD.PACK PO (08:42)
[2024-09-15] MEDS: SODIUM CHLORIDE 500 MG TABLET PO ×2 (08:42→18:08)
[2024-09-15] MEDS: HEPARIN SODIUM 5,000 UNITS/ML VIAL 5000 UNITS SUB-Q ×2 (08:42→20:13)
[2024-09-15 12:00] VITALS: BP 118/51; PULSE 71; RESP 18; TEMP 36.4; O2SAT 95
[2024-09-15 16:00] VITALS: BP 133/61; PULSE 60; RESP 18; TEMP 37.1; O2SAT 98
[2024-09-15 20:00] VITALS: BP 127/65; PULSE 77; RESP 18; TEMP 36.8; O2SAT 98
[2024-09-15] MEDS: SENNA/DOCUSATE SODIUM TABLET 1 TAB PO (20:13)
[2024-09-16] VITALS: BP 152/64; PULSE 61; RESP 16; TEMP 36.8; O2SAT 100
[2024-09-16] MEDS: clonazePAM (*CRX) 0.25 MG TABLET PO (00:06)
[2024-09-16] MEDS: ARTIFICIAL TEARS OPHTH SOLN 15 ML BOTTLE 1 DROP EACH EYE (00:06)
[2024-09-16 03:49] VITALS: BP 122/57; PULSE 60; RESP 16; TEMP 36.7; O2SAT 94
[2024-09-16 08:00] VITALS: BP 141/62; PULSE 66; RESP 18; TEMP 35.9; O2SAT 97
--- NOTE | 2024-09-16 08:20 | P.PNIM_ITS ---
Progress Note: A&P Assessment and Plan (1) Cognitive impairment: Code(s): R41.89 - Other symptoms and signs involving cognitive functions and awareness Status: Acute Assessment and Plan: Likely to be acute on chronic with concussion. 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 His reports his mental status seems much closer to normal at this point. Notes that he has been impulsive about getting up without his walker, attributes some of it to being stubborn. He has early signs of dementia, and CT head shows chronic changes above. --Neurology is not in the hospital this week, outpatient referral to follow cognitive changes. 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 He remembered 2/3 words in 1 and 5 minutes but required a lot of prompting, otherwise 1/3 words. Otherwise exam is nonfocal --TSH recently normal. Check B12, HIV, RPR. (2) Fall: Qualifiers: Encounter type: initial encounter Qualified Code(s): W19.XXXA - Unspecified fall, initial encounter Code(s): W19.XXXA - Unspecified fall, initial encounter Status: Inactive Assessment and Plan: Unclear cause of fall, but sounds like he probably tripped or fell due to weakness. Suspect he may be impulsive 2/2 poor executive function related to cognitive decline. No infectious symptoms --PT/OT recommendations for rehab or SNF --Orthostatics were negative --Echo to follo up murmur, aortic stenosis --Head CT no acute findings (3) Closed head injury: Qualifiers: Encounter type: initial encounter Qualified Code(s): S09.90XA - Unspecified injury of head, initial encounter Code(s): S09.90XA - Unspecified injury of head, initial encounter Status: Acute Assessment and Plan: Improving No headache Neuro exam nonfocal Treatment of fall, cognitive impairment as noted (4) Bilateral edema of lower extremity: Code(s): R60.0 - Localized edema Status: Acute Assessment and Plan: Improving Left ventricular systolic function is normal, estimated at 65-70%. left ventricular diastolic function is grade I diastolic dysfunction. No pulmonary edema seen on x-ray or clinically Continue with po torsemide (5) Hyponatremia: Code(s): E87.1 - Hypo-osmolality and hyponatremia Status: Acute Assessment and Plan: Improving torsemide 10mg and Salt tabs 500 BID with a fluid restriction due to significant lower extremity edema on admission, which has improved. --Free restriction 1500 mls --Unclear if hyponatremia is 2/2 diuretics or SIADH. May be medication related. Continued melatonin and trazodone since sodium normal, but could consider stopping and monitoring --Recently had urinary retention but watson has been removed and now off tamsulosin. Check PVR (6) Laceration of multiple sites of face: Code(s): S01.81XA - Laceration without foreign body of other part of head, initial encoun ter Status: Acute Assessment and Plan: Sutured in ED May be removed in 7-10 days Follow up with dentist for tooth (7) Swelling of left hand: Code(s): M79.89 - Other specified soft tissue disorders Status: Acute Assessment and Plan: x-ray shows Polyarticular osteoarthritis, no fracture Plan The patient is an 84-year-old man, with a history of hypertension, sick sinus syndrome s/p pacemaker, recent admission for hyponatremia and orthostatic hypotension who was admitted for a fall in the evening 10-14. Being treated for hyponatremia and concussion after a fall. 1500 ml free water restriction, regular diet, and p.o. torsemide. Na stable, the patient should be discharged on a 1500 mL, salt tabs and regular diet. Patient is stable for discharge, waiting on insurance authorization. No changes to current plan. Subjective Date/time seen: 09/16/24 08:20 Interval history: Na stable, the patient should be discharged on a 1500 mL fluid restriction, salt tabs and regular diet. Patient is medically ready for discharge. Waiting on insurance authorization. No Acute events overnight. Review of Systems Review of Systems: No report of fevers, chills, nausea, vomiting, diarrhea, or abdominal pain Constitutional: Constitutional: Reports no additional constitutional complaints Eyes: Eyes: Reports no additional eye complaints ENT: Reports Normal hearing present Cardiovascular: Cardiovascular: Reports no additional cardiovascular complaints Respiratory: Respiratory: Reports no additional respiratory complaints Gastrointestinal: Gastrointestinal: Reports no additional gastrointestinal complaints Genitourinary: Genitourinary: Reports no additional male genitourinary complaints Musculoskeletal: Musculoskeletal: Reports no additional musculoskeletal complaints Integumentary/Breasts: Skin/Breast: Reports as per HPI Neurologic: Reports as per HPI and Reports Normal hearing present Psychiatric: Psychiatric: Reports no additional psychiatric complaints Exam Narrative: General - Awake and alert. No acute distress Eyes - PERRLA, EOM intact. Reflection in pupil to left eye (likely cataract) Head--, laceration/sutures to left [facility] ENT - No thrush, broken tooth White reflection in left pupil. Vision equal bilaterally Neck - No noticeable or palpable swelling Lymph Nodes - No lymphadenopathy Cardiovascular - RRR 4/6 murmur heart best at the 2nd right ICS, no JVD Lungs: Clear to auscultation, No wheezing, use of accessory muscles, no crackles or wheezes. Skin - Skin warm and dry, no rashes. sutures to left scalp, small hematoma under left eye Abdomen - Normal bowel sounds, abdomen soft and nontender Extremities - Mild bilateral pitting LE edema, cyanosis or clubbing Musculoskeletal - 4/5 strength, limited range of motion left arm, no swollen or erythematous joints. Neurological ? Alert and oriented x 3, CN 2-12 grossly intact. EOMI, PERRLA. Unable to do serial 7's easily. Did get 1 number. Could count backward by 3's. Remembered 2/5 words in 1 and 5 minutes but gave him some prompting. Psych: Normal mood and affect Neuro: Cranial nerves: Yes Normal hearing present Objective Data Vital Signs Vital Signs: Vital Signs - 24 hr 09/15/24 12:00 09/15/24 16:00 09/15/24 20:00 Temperature 97.6 F 98.8 F 98.3 F Pulse Rate 71 60 77 Respiratory Rate 18 18 18 Blood Pressure 118/51 L 133/61 127/65 Pulse Oximetry 95 98 98 09/16/24 00:00 09/16/24 03:49 Temperature 98.2 F 98.0 F Pulse Rate 61 60 Respiratory Rate 16 16 Blood Pressure 152/64 H 122/57 L Pulse Oximetry 100 94 Intake/Output Intake/Output: Intake & Output 09/13/24 09/14/24 09/15/24 09/16/24 23:59 23:59 23:59 23:59 Intake Total 2260 780 1110 200 Balance 2260 780 1110 200 Meds/Results Medications: Active Medications Generic Name Dose Route Start Last Admin Trade Name Freq PRN Reason Stop Dose Admin Acetaminophen 650 mg 09/11/24 08:28 Acetaminophen 325 Mg Tablet PO Q6H PRN Fever Artificial Tears 1 drop 09/12/24 16:04 09/16/24 00:06 Artificial Tears Ophth Soln 15 Ml Bottle EACH EYE 1 drop QID PRN Administration Dry Eye(s) Atorvastatin Calcium 20 mg 09/10/24 09:00 09/15/24 08:41 Atorvastatin 20 Mg Tablet PO 20 mg DAILY HERBIE Administration Clonazepam 0.25 mg 09/10/24 20:22 09/16/24 00:06 Clonazepam (*Crx) 0.25 Mg Tablet PO 0.25 mg QHS PRN Administration insomnia Cyanocobalamin 5,000 mcg 09/11/24 09:00 09/15/24 08:41 Cyanocobalamin 1,000 Mcg Tablet PO 5,000 mcg DAILY HERBIE Administration Dextrose 12.5 gm 09/10/24 02:53 Dextrose 50% 25 Gm/50 Ml Syringe IV PUSH PRN PRN Hypoglycemia Protocol Docusate Sodium 100 mg 09/10/24 20:22 09/14/24 12:56 Docusate Sodium 100 Mg Capsule PO 100 mg DAILY PRN Administration Constipation Fish Oil 1 gm 09/11/24 09:00 09/15/24 08:41 [place] 3 Polyunsat Fatty Acids 1 Gm Cap PO 1 gm DAILY HERBIE Administration Folic Acid 0.4 mg 09/11/24 09:00 09/15/24 08:42 Folic Acid 0.4 Mg Tablet PO 0.4 mg DAILY HERBIE Administration Glucagon 1 mg 09/10/24 02:53 Glucagon For Inj 1 Mg Vial IM PRN PRN Hypoglycemia Protocol Glucose 15 gm 09/10/24 02:53 Glucose Oral Gel 15 Gm Of Glucse In 37.5 Gm Tube PO PRN PRN Hypoglycemia Protocol Heparin Sodium (Porcine) 5,000 units 09/11/24 21:00 09/15/24 20:13 Heparin Sodium 5,000 Units/Ml Vial SUB-Q 5,000 units Q12HR HERBIE Administration Dextrose 1,000 mls @ 100 mls/hr 09/10/24 02:53 Dextrose 5% 1,000 Ml IVPB PRN PRN Hypoglycemia Protocol Melatonin 3 mg 09/10/24 19:47 09/15/24 02:58 Melatonin 3 Mg Tablet PO 3 mg HS PRN Administration insomnia Multivitamins Therapeutic 1 tablet 09/10/24 09:00 09/15/24 08:41 Multivitamins Therapeutic Tab (*Bkc) PO 1 tablet DAILY HERBIE Administration Polyethylene Glycol 17 gm 09/12/24 09:00 09/15/24 08:42 Polyethylene Glycol 3350 17 Gm Powd.Pack PO 17 gm QAM HERBIE Administration Senna/Docusate Sodium 1 tab 09/11/24 21:00 09/15/24 20:13 Senna/Docusate Sodium Tablet PO 1 tab HS HERBIE Administration Sodium Chloride 500 mg 09/11/24 09:00 09/15/24 18:08 Sodium Chloride 500 Mg Tablet PO 500 mg BID HERBIE Administration Torsemide 10 mg 09/11/24 09:00 09/15/24 08:41 Torsemide 10 Mg Tablet PO 10 mg QAM HERBIE Administration Trazodone HCl 25 mg 09/10/24 21:00 09/15/24 20:13 Trazodone Hcl 25 Mg Tablet PO 25 mg HS HERBIE Administration Radiology Results: ITS Impressions Head CT 09/09/24 21:54 IMPRESSION: 1. Stable extensive nonspecific cerebral white matter disease, which likely represents chronic small vessel ischemic disease. Cervical Spine CT 09/09/24 21:56 IMPRESSION: 1. No fracture. 2. Severe cervical spondylosis. Chest X-Ray 09/09/24 22:00 IMPRESSION: 1. No acute cardiopulmonary disease. Lumbar Spine CT 09/09/24 22:00 IMPRESSION: 1. Severe lumbar spondylosis. 2. Anterior and posterior fusion procedures from L4 to S1. 3. Thoracolumbar dextroscoliosis. Hand X-Ray 09/11/24 13:04 IMPRESSION: 1. Polyarticular osteoarthritis. Quality VTE Prophylaxis VTE prophylaxis: pharmacologic ordered
[2024-09-16 08:21] LABS: Hematocrit 36.5 % (42.0-52.0); Hemoglobin 11.9 g/dL (14.0-18.0); Mean Corpuscular HGB Conc 32.6 g/dl (32-36); Mean Corpuscular Hemoglobin 32.3 pg (26-34); Mean Corpuscular Volume 99.2 fl (80-100); Mean Platelet Volume 9.2 fl (7.4-10.4); Platelet Count Result 288 k/mm3 (150-375); Red Blood Count 3.68 M/mm3 (4.6-6.20); Red Cell Distribution Width 13.5 % (11.5-14.5); White Blood Count 6.5 K/mm3 (4.5-10.0)
[2024-09-16] MEDS: ATORVASTATIN 20 MG TABLET PO (08:24)
[2024-09-16] MEDS: CYANOCOBALAMIN 1,000 MCG TABLET 5000 MCG PO (08:24)
[2024-09-16] MEDS: polyethylene glycoL 3350 17 GM POWD.PACK PO (08:25)
[2024-09-16] MEDS: FOLIC ACID 0.4 MG TABLET PO (08:25)
[2024-09-16] MEDS: MULTIVITAMINS THERAPEUTIC TAB (*BKC) 1 TABLET PO (08:25)
[2024-09-16] MEDS: SODIUM CHLORIDE 500 MG TABLET PO (08:25)
[2024-09-16] MEDS: TORSEMIDE 10 MG TABLET PO (08:25)
[2024-09-16] MEDS: HEPARIN SODIUM 5,000 UNITS/ML VIAL 5000 UNITS SUB-Q (08:25)
[2024-09-16] MEDS: OMEGA 3 POLYUNSAT FATTY ACIDS 1 GM CAP PO (08:25)
[2024-09-16 10:59] LABS: Alanine Aminotransferase 32 U/L (6-50); Albumin Level 3.4 g/dL (3.5-5.1); Alkaline Phosphatase 94 U/L (38-126); Anion Gap 3 mmol/L (4-12); Aspartate Amino Transferase 38 U/L (17-59); Bilirubin,Total 0.5 mg/dL (0.2-1.3); Blood Urea Nitrogen 15 mg/dL (9-20); Carbon Dioxide 30 mmol/L (22-30); Chloride 103 mmol/L (98-107); Estimated CRCL calculation 68 ml/min; Estimated Glomerular Filt Rate > 60; Glucose 89 mg/dL (65-110); Potassium 3.9 mmol/L (3.4-5.0); Sodium 136 mmol/L (137-145)
[2024-09-16 12:00] VITALS: BP 110/68; PULSE 79; RESP 18; TEMP 36.7; O2SAT 95
--- NOTE | 2024-09-16 12:32 | P.DS_ITS ---
DS: Admitting Diagnosis Discharge Date 09/16/2024 Admitting Diagnosis Fall, Hyponatremia and acute weakness DS: Discharge Diagnosis Discharge Diagnosis (1) Cognitive impairment: Code(s): R41.89 - Other symptoms and signs involving cognitive functions and awareness Status: Acute Assessment and Plan: Dementia baseline (2) Closed head injury: Qualifiers: Encounter type: initial encounter Qualified Code(s): S09.90XA - Unspecified injury of head, initial encounter Code(s): S09.90XA - Unspecified injury of head, initial encounter Status: Acute Assessment and Plan: Concussion Improving No headache Neuro exam nonfocal Treatment of fall, cognitive impairment as noted (3) Bilateral edema of lower extremity: Code(s): R60.0 - Localized edema Status: Acute Assessment and Plan: Improving Left ventricular systolic function is normal, estimated at 65-70%. left ventricular diastolic function is grade I diastolic dysfunction. No pulmonary edema seen on x-ray or clinically Continue with po torsemide (4) Hyponatremia: Code(s): E87.1 - Hypo-osmolality and hyponatremia Status: Acute Assessment and Plan: Improving torsemide 10mg and Salt tabs 500 BID with a fluid restriction due to significant lower extremity edema on admission, which has improved. --Free restriction 1500 mls Likely due to diuretics and low-sodium diet, patient did well on regular diet, torsemide 10mg and Salt tabs 500 BID, and 1500 mL fluid restriction, recommendations to follow-up outpatient 1 week with BMP. (5) Laceration of multiple sites of face: Code(s): S01.81XA - Laceration without foreign body of other part of head, initial encounter Status: Acute Assessment and Plan: Sutured in ED May be removed in 7-10 days Follow up with dentist for tooth (6) Swelling of left hand: Code(s): M79.89 - Other specified soft tissue disorders Status: Acute Assessment and Plan: No acute findings on x-ray DS: Summary Hospital Course Reason for hospitalization: Fall orthostatic hypertension and hyponatremia Hospital Course: [facility] [address] [place] [id number] History & Physical Report Signed Patient: Dinesh Saha MR#: [id number] : 1940 Acct:[id number] Age: 84 ADM Date: 09/10/24 Loc: [id number]: Elaina Moseley APRN cc: Bonnie Sandra PA-C; Wes Alves MD; Elaina Moseley APRN~ H&P: HPI History of Present Illness Date/Time: 09/10/24 08:33 Chief Complaint: The patient is an 84-year-old man, with a history of hypertension, sick sinus syndrome s/p pacemaker, recent admission for hyponatremia and orthostatic hypotension who was admitted for a fall in the evening 09-09. Patient does not remember the fall. He hit his head and had two lacerations to his left temporal region that were sutured in the ER. Also broke a tooth. He received a tetanus shot in 2021 according to records.? Called [facility]. Nurses have reported he?s intermittently more confused. No one was present when he fell, but patient reported to them at the time that he tried to self transfer, forgot to use his walker, and fell. Hit his mouth and had a laceration to his head, broke a tooth. He had shoes on at the time. No report of a loss of consciousness.?Spoke with his and she reports confusion is new to her in the recent months, around the time since he's had hyponatremia and started falling frequently. Can be impulsive at the [facility]. She says sometimes he can be stubborn about not using his walker when he should. Prior to last admission he was living with his at home, and up to the time he started falling, he was able to walk up and down the stairs to the basement multiple times a day. 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 She is now considering shelter placement for her and possibly assisted living for herself, but would probably eventually try to find a facility in [place] close to her daughter. Short term she said he's happy at [facility] and plans for him to return there. He was seen in the emergency department, 08/16 with shoulder pain after a fall and was found to have an avulsion fracture of his proximal humerus.? He was seen again in the ER on 924 after a ground level fall. Sodium was 124 at that time. He decided to discharge home from the ER. He came back to the ER 929 to 09/03 for weakness and falls, was found to have severe hyponatremia, sodium 120. He initially had severe orthostatic and were checking orthostatic blood pressures daily. Sodium gradually improved with fluids, but he developed lower extremity edema, so fluids were held, and he was started on sodium tabs, 10 mg of torsemide, and a fluid restriction, which was continued at the facility.? 929 serum osmolality low, 251, urine osmolality 473, Urine sodium 105, serum sodium 120. No indication of fluid overload on initial exams and normal chest x- ray.??Hyponatremia due to diuretics or SIADH. He also had urinary retention during admission, required a [employer] catheter, Was started on tamsulosin, subsequently passed a void trial.? Home medication during that admission included, lisinopril, hydrochlorothiazide, multiple vitamins, trazodone, oxycodone amlodipine In the ER vital signs were stable. He was afebrile, HR 62-78, RR18, BP 140/71, O2 sat 97-100% RA. He has an [employer] pacemaker that was interrogated in the ER. Two episodes with a high heart rate, but worse August 19 and which were days he was in the ER after falls. 12 lead EKG showed a paced rhythm.? He had Cervical and L spine CT that showed no acute findings. He had no focal neurological deficits on exam. Chest x-ray, no acute findings. Had CT showed stable, extensive cerebral white matter disease likely chronic small vessel, ischemic disease. UA was cloudy but no WBCs.?Last tentanus shot in 2021. After arrival to the floor, orthostatic vital signs were normal. 140s/60-70s.? Patient also had a laceration on his left temporal area that was sutured in the emergency room. With recommendations to have sutures removed in 7-10 days. 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 His reports his mental status seems much closer to normal at this point. Notes that he has been impulsive about getting up without his walker, attributes some of it to being stubborn. 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 He remembered 2/3 words in 1 and 5 minutes but required a lot of prompting, otherwise 1/3 words. Otherwise exam is nonfocal. Unclear cause of fall, but sounds like he probably tripped or fell due to weakness. Suspect he may be impulsive 2/2 poor executive function related to cognitive decline and hyponatremia. Patient's echo showed Left ventricular systolic function is normal, estimated at 65-70% and left ventricular diastolic function is grade I diastolic dysfunction. For patient's hyponatremia Sodium was corrected slowly with fluids, torsemide 10mg and Salt tabs 500 BID with a fluid restriction of 1500 mL and a regular diet. On day of discharge patient's sodium was stable, was able to work well with PT and OT, no lower extremity edema, and baseline dementia. Plan was for patient to go to SNF however he was not approved due to doing too well with physical and occupational therapy and was approved for home. The decided to self pay for SNF for the time being. Status at Discharge Functional status at discharge: uses cane/walker Time Spent with Patient Time attestation: Total time spent providing and/or coordinating discharge services: Exam Narrative: General - Awake and alert. No acute distress Eyes - PERRLA, EOM intact. Reflection in pupil to left eye (likely cataract) Head--, laceration/sutures to left [facility] ENT - No thrush, broken tooth White reflection in left pupil. Vision equal bilaterally Neck - No noticeable or palpable swelling Lymph Nodes - No lymphadenopathy Cardiovascular - RRR 4/6 murmur heart best at the 2nd right ICS, no JVD Lungs: Clear to auscultation, No wheezing, use of accessory muscles, no crackles or wheezes. Skin - Skin warm and dry, no rashes. sutures to left scalp, small hematoma under left eye Abdomen - Normal bowel sounds, abdomen soft and nontender Extremities -no lower extremity edema, cyanosis or clubbing Musculoskeletal - 4/5 strength, limited range of motion left arm, no swollen or erythematous joints. Neurological ? Alert and oriented x 3, CN 2-12 grossly intact. EOMI, PERRLA. Unable to do serial 7's easily. Did get 1 number. Could count backward by 3's. Remembered 2/5 words in 1 and 5 minutes but gave him some prompting. Psych: Normal mood and affect DS: Data Data Completed and Pending Pending studies at discharge: None Labs on day of discharge: Labs from last 24 hours 09/16/24 08:11 WBC 6.5 RBC 3.68 L Hgb 11.9 L Hct 36.5 L MCV 99.2 MCH 32.3 MCHC 32.6 RDW 13.5 Plt Count 288 MPV 9.2 Sodium 136 L Potassium 3.9 Chloride 103 Carbon Dioxide 30 Anion Gap 3 L BUN 15 D Creatinine 0.70 Estim Creat Clear Calc 68 Estimated GFR > 60 Glucose 89 Calcium 9.0 Total Bilirubin 0.5 AST 38 ALT 32 Alkaline Phosphatase 94 Total Protein 6.0 L Albumin 3.4 L Discharge Plan Discharge Attending physician on discharge: Vicky Alejandra Consulting providers: Medhat Mattson; Glenroy Kaufman; Rashad Wagner V.; Vicky Alejandra Discharging Clinician: Vicky Alejandra Anticipated Discharge Date/Time: 09/16/24 12:19 Patient Disposition: [facility] Activity: may shower Diet: regular and other - see discharge instructions Discharge Instructions: Take medications as prescribed New medications prescribed: torsemide 10mg Salt tabs 500 BID with a 1500 fluid restriction per day You do not need a low-sodium diet. You are activity as tolerated, you must use your walker to prevent falls Please follow-up with dentist for your broken tooth Monitor blood pressures Avoid social areas, you wear a mask when in social settings Encouraged to continue with yearly vaccinations Return to the emergency department if he developed sudden shortness of breath, chest pain, nausea, vomiting, upset stomach or intractable diarrhea Return to the emergency department if you develop fever greater than 101.5 Follow-up with: Your primary care physician within 1-2 weeks for post hospitalization check up Thank you for [facility] for your healthcare needs Patient Instructions: Antibiotic Form, Hyponatremia (DC), Pain Management (DC), Dementia (GEN), Fall Prevention for Older Adults (DC) Stand Alone Forms: General Discharge Information Follow-up/Referrals: Wes Alves MD [Primary Care Provider] - 2 Weeks (follow-up for hyponatremia and hospital) Discharge Medications: Continued trazodone 50 mg tablet 25 mg PO QHS folic acid 400 mcg tablet 0.4 mg PO DAILY omega-3 fatty acids [Fish Oil Concentrate] 1,000 mg capsule 1,000 mg PO DAILY multivitamin Tablet 1 tablet PO DAILY biotin 5,000 mcg tablet,disintegrating 10,000 mcg PO DAILY melatonin 5 mg capsule 5 mg PO HS Excedrin Extra Strength 250-250-65 mg tablet 1 tablet PO Q4-6H PRN (Reason: pain) Qty: 1 0RF cyanocobalamin (vitamin B-12) 5,000 mcg capsule 5,000 mcg PO DAILY docusate sodium [Colace] 100 mg capsule 100 mg PO DAILY PRN (Reason: Constipation) ondansetron HCl 4 mg tablet 4 mg PO Q8H PRN (Reason: Nausea/vomiting) acetaminophen [Tylenol Extra Strength] 500 mg tablet 1,000 mg PO TID PRN (Reason: pain) Qty: 30 0RF oxycodone 5 mg tablet 2.5 mg PO Q8H PRN (Reason: pain) Qty: 10 0RF torsemide 10 mg Tablet 10 mg PO QAM Qty: 30 0RF Rx Instructions: HOLD if SBP is <100 sodium chloride 1,000 mg tablet,soluble 500 mg PO BID Qty: 60 0RF flaxseed oil 1,000 mg Capsule 1,000 mg PO DAILY Rx Instructions: administer with a meal Cetaphil Moisturizing Lotion 1 applic TOPICAL DAILY PRN (Reason: Dry Skin) atorvastatin 20 mg tablet 20 mg PO DAILY clonazepam [Klonopin] 0.5 mg tablet 0.25 mg PO QHS PRN (Reason: insomnia) Qty: 30 1RF Rx Instructions: administer 30 minutes before bedtime Discontinued sulfamethoxazole-trimethoprim 800-160 mg Tablet 1 tab PO Q12HR Qty: 7 0RF Other Ambulatory Orders: Basic Metabolic Panel (Routine) Timeframe: 1 Week Location: Determined by Patient Ordered By: Vicky Alejandra Date of admission: 09/10/24 02:53 Primary Care Provider: Wes Alves Admitting Provider: Yessy Daley Attending physician on admission: Elaina Moseley Condition: Stable Quality VTE Prophylaxis VTE prophylaxis: pharmacologic ordered Hospitalist MIPS Heart Failure (Exclusion) Patient has history of Heart Transplant or Left Ventricular Assistive Device?: No IF YES, STOP HERE Heart Failure (Qualifier) Patient has current or prior documentation of LVEF less than or equal to 40%, or mod/servere depressed LVSF?: No IF NO, STOP HERE
== END 2024-09-16 14:45 ==
LOC: ANHED 09-10 03:02 → ANH3MEDSUR 09-10 03:42
PROVIDERS: Nurse Practitioner Gerontology; Student in an Organized Health Care Education/Training Program; Admitting Provider Internal Medicine; Emergency Provider Physician Assistant; PCP Family Medicine; Visit Provider Nurse Practitioner Acute Care
DX: E87.1 Hypo-osmolality and hyponatremia (principal); F03.90 Unspecified dementia, unspecified severity, without behavioral disturbance, psychotic disturbance, mood disturbance, and anxiety; S06.0XAA Concussion with loss of consciousness status unknown, initial encounter; S01.81XA Laceration without foreign body of other part of head, initial encounter; S02.5XXA Fracture of tooth (traumatic), initial encounter for closed fracture; W19.XXXA Unspecified fall, initial encounter; R60.0 Localized edema; Z91.81 History of falling; M79.89 Other specified soft tissue disorders; M19.042 Primary osteoarthritis, left hand; I95.1 Orthostatic hypotension; I11.9 Hypertensive heart disease without heart failure; I35.0 Nonrheumatic aortic (valve) stenosis; I49.5 Sick sinus syndrome; Z95.0 Presence of cardiac pacemaker; E78.2 Mixed hyperlipidemia; K50.90 Crohn's disease, unspecified, without complications; M47.26 Other spondylosis with radiculopathy, lumbar region; M48.061 Spinal stenosis, lumbar region without neurogenic claudication; Z75.1 Person awaiting admission to adequate facility elsewhere; Z86.0100 Personal history of colon polyps, unspecified; Z87.891 Personal history of nicotine dependence; Z79.82 Long term (current) use of aspirin; Z79.899 Other long term (current) drug therapy
CPT/HCPCS: 12002; 36415; 70450; 71046; 72125; 72131; 73120; 80048; 80053; 81001; 82140; 82607; 83735; 84484; 85025; 85027; 86592; 86703; 93005; 93306; 96372; 97110; 97116; 97161; 97165; 97530; 97535; 99212; 99285; A9270; G0378; G0432; G0463; J1644

== ENCOUNTER 2024-11-21 17:32 | Emergency (ER) | payer MEDICARE, SELFPAY ==
--- NOTE | ~2024-11-21 | CT_ITS ---
EXAMINATION: CT abdomen pelvis w con DATE: 11/22/2024 03:10 INDICATION: Abdominal pain. Gastrointestinal hemorrhage. TECHNIQUE: Computed tomography (CT) of the abdomen and pelvis was performed with 100 mL Omnipaque 350 intravenous contrast. Automated exposure control and iterative reconstruction technique were employe d. The dose-length product was 518.72 mGy-cm. COMPARISON: CT abdomen and pelvis 07/31/2019 FINDINGS: The visualized portions of lung bases demonstrate mild atelectasis. There is mild bronchiec tasis bilaterally. No pleural effusion. The heart size is normal. There are calcifications of the aor tic valve. There are coronary artery calcifications. No pericardial effusion. There are pacer wires i n right atrium and right ventricle. There is a 9 mm cyst in the liver. The gallbladder, spleen, and p ancreas are normal. There are masses in the adrenal glands measuring up to 17 mm on the right without change, likely adenomas. There are cysts in the kidneys measuring up to 9 mm on the left. Pelvic brea or dysfunction is noted. There are no dilated loops of bowel. The appendix is not visualized. There a re no pathologically enlarged lymph nodes. There is no free intraperitoneal fluid. There is severe th oracic and lumbar spondylosis. There are changes of anterior and posterior fusion procedures from L4 to S1. IMPRESSION: 1. No specific etiology for the patient's symptoms. Reviewed, dictated and finalized at location [facility]. [facility] [employer]ACH[employer] OPER[employer] REPA[employer]ER
[2024-11-21 17:46] VITALS: BP 118/58; PULSE 65; RESP 18; TEMP 36.4; O2SAT 98
--- NOTE | 2024-11-21 18:16 | ED.GIBLEED ---
HPI - GI Bleed General Chief complaint: GI Bleed <Kayla Johns PA-C - Last Filed: 11/25/24 17:36> Stated complaint: bloody stool <Kayla Johns PA-C - Last Filed: 11/25/24 17:36> Time Seen by Provider: 11/21/24 18:16 <Kayla Johns PA-C - Last Filed: 11/25/24 17:36> Focused HPI: This is a 84 year old male that presents to the ER for blood in stool. Ongoing for about a week. He is not on anticoagulation. Has history of hemorrhoids. Has not tried any over the counter treatments GENERAL: Well-appearing, well-nourished, and in no acute distress. HEAD: Normocephalic, atraumatic. CHEST: Clear to auscultation. ?No respiratory distress. HEART: Regular rate and rhythm.? NEURO: ?Alert and oriented x3. Patient screened in triage and initial orders placed.? ?Additional care and disposition to be based upon?diagnostic testing and treatment. <Kayla Johns PA-C - Last Filed: 11/25/24 17:36> History of Present Illness HPI Narrative: Patient 84-year-old gentleman presents emergency department with chief complaint of blood in stool. His patient reports that he is not on blood thinners reports that he has history of inflammatory bowel disease reports that he started having blood colored bowel movements and reports that he does have a known history of a hemorrhoid reports this looks like a lot more blood. The patient denies diarrhea denies vomiting denies abdominal pain. <Gilberto Woo MD - Last Filed: 11/22/24 06:58> Related Data Home medications: Home Medications ?Medication ?Instructions ?Recorded ?Confirmed ?Last Taken ?Type biotin 5,000 mcg disintegrating 10,000 mcg PO DAILY 12/17/19 10/31/24 07/24/22 History tablet cyanocobalamin (vitamin B-12) 5,000 mcg PO DAILY 12/17/19 10/31/24 07/24/22 History 5,000 mcg capsule folic acid 400 mcg tablet 0.4 mg PO DAILY 12/17/19 10/31/24 07/24/22 History melatonin 5 mg capsule 5 mg PO HS 12/17/19 10/31/24 07/24/22 History multivitamin 1 tablet PO DAILY 12/17/19 10/31/24 07/24/22 History omega-3 fatty acids 1,000 mg 1,000 mg PO DAILY 12/17/19 10/31/24 07/24/22 History capsule (Fish Oil Concentrate) docusate sodium 100 mg capsule 100 mg PO DAILY PRN Constipation 10/14/22 10/31/24 Unknown History (Colace) ondansetron HCl 4 mg tablet 4 mg PO Q8H PRN Nausea/vomiting 10/14/22 10/31/24 Unknown History trazodone 50 mg tablet 25 mg PO QHS insomnia 05/08/24 10/31/24 Unknown History atorvastatin 20 mg tablet 20 mg PO DAILY 09/10/24 10/31/24 Unknown History flaxseed oil 1,000 mg capsule 1,000 mg PO DAILY 09/10/24 10/31/24 Unknown History vit B-jxhuzfhn-jwfowxoqtxr lotion 1 applic topical DAILY PRN Dry Skin 09/10/24 10/31/24 Unknown History (Cetaphil Moisturizing lotion) <Kayla Johns PA-C - Last Filed: 11/25/24 17:36> Allergies/Adverse reactions: Allergies Allergy/AdvReac Type Severity Reaction Status Date / Time No Known Drug Allergies Allergy Unknown Unknown Verified 09/10/24 02:46 <Kayla Johns PA-C - Last Filed: 11/25/24 17:36> Review of Systems Review of Systems: A 10 system review of systems was completed on the patient and is negative except for what is stated in the HPI. Nursing and ancillary documentation was reviewed. <Gilberto Woo MD - Last Filed: 11/22/24 06:58> FORMERLY [facility], [facility]–1983 Past Medical History Medical History: Medical History Adenomatous colon polyp Spinal stenosis of lumbar region at multiple levels Aortic stenosis Prostate cancer Nasal polyps Crohn's disease without complication Essential hypertension Mixed hyperlipidemia Nicotine dependence, other tobacco product, in remission Osteoarthritis of spine with radiculopathy, lumbar region Sick sinus syndrome (03/05/15) Status post [facility] dual chamber permanent pacemaker placement. <Kayla Johns PA-C - Last Filed: 11/25/24 17:36> Surgical History Surgical History: Surgical History History of transurethral resection of prostate History of permanent cardiac pacemaker placement History of spinal fusion History of cataract extraction History of prostatectomy <Kayla Johns PA-C - Last Filed: 11/25/24 17:36> Family History Family History: Family History Mother Family history of Alzheimer's disease Father Family history of osteoporosis Malignant neoplasm of prostate <Kayla Johns PA-C - Last Filed: 11/25/24 17:36> Social History Social History: Social History Social History: Surrogate medical decision maker: Aliza Saha, spouse. Code status: Full code. Years smoked: 40 Smoking status: Former smoker Tobacco type: pipe Second hand tobacco smoke exposure: Yes Smoking end date: 12/05/18 Alcohol intake: never Alcohol use details: rarely Substance use: never Substance use type: does not use Do You Feel Safe in your Home?: Yes Lack of Transportation: No Lack of Food: Never True Current Housing: I Have Housing Concerned About Future Housing: No Difficulty Paying Gas/Electric Bills: No Difficulty Paying for Meds: No Currently Unemployed: No Education: Master's Degree or Higher Difficulty w/ Childcare or Family Care: No Living arrangements: with family Additional living arrangements comments: Lives with spouse in [place]. 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 Spiritual care concerns: No <Kayla Johns PA-C - Last Filed: 11/25/24 17:36> Exam Narrative: GENERAL: Well-appearing, well-nourished, and in no acute distress. HEAD: Normocephalic, atraumatic. EYES: PERRLA and EOMI. ENT: Nares clear, no rhinorrhea or epistaxis. Mucous membranes moist. NECK: Supple. CHEST: Clear to auscultation. No respiratory distress. HEART: Regular rate and rhythm. No murmur heard. Normal peripheral pulses. ABDOMEN: Soft, nontender, nondistended, normal active bowel sounds. : Maroon-colored stool present EXTREMITIES: Normal range of motion. No edema. SKIN: Warm, dry, no rash. NEURO: No focal deficits. Alert and oriented x3. PSYCH: Normal mood and affect. <Gilberto Woo MD - Last Filed: 11/22/24 06:58> Course Vital Signs Vital signs: Vital Signs Temperature 97.5 F L 11/21/24 17:46 Pulse Rate 65 11/21/24 17:46 Respiratory Rate 18 11/21/24 17:46 Blood Pressure 118/58 L 11/21/24 17:46 Pulse Oximetry 98 11/21/24 17:46 Temperature 97.6 F 11/22/24 14:59 Pulse Rate 68 11/22/24 14:59 Respiratory Rate 16 11/22/24 14:59 Blood Pressure 150/76 H 11/22/24 14:59 Pulse Oximetry 100 11/22/24 14:59 <Kayla Johns PA-C - Last Filed: 11/25/24 17:36> Vital Signs Temperature 97.5 F L 11/21/24 17:46 Pulse Rate 65 11/21/24 17:46 Respiratory Rate 18 11/21/24 17:46 Blood Pressure 118/58 L 11/21/24 17:46 Pulse Oximetry 98 11/21/24 17:46 Temperature 97.6 F 11/22/24 14:59 Pulse Rate 68 11/22/24 14:59 Respiratory Rate 16 11/22/24 14:59 Blood Pressure 150/76 H 11/22/24 14:59 Pulse Oximetry 100 11/22/24 14:59 <Gilberto Woo MD - Last Filed: 11/22/24 06:58> MDM - GI Bleed MDM Narrative Medical decision making narrative: Differential diagnosis includes GI bleed infection, diverticulitis colitis Crohn's Laboratory studies were obtained showed a white count 0 hemoglobin was 14 there he electrolytes and a limits the a BUN was 20 the Liver EKG normal limits. The patient had melanotic stool on rectal exam. Currently we do not have GI coverage case was discussed the hospitalist at [facility] and patient did by Dr. Radu Limon <Gilberto Woo MD - Last Filed: 11/22/24 06:58> Lab Data Result diagrams: 11/22/24 02:23 11/21/24 19:30 <Kayla Johns PA-C - Last Filed: 11/25/24 17:36> Labs: Lab Results 11/21/24 11/22/24 Range/Units 19:30 02:23 WBC 9.0 (4.5-10.0) K/mm3 RBC 4.35 L (4.6-6.20) M/mm3 Hgb 13.6 L 14.0 (14.0-18.0) g/dL Hct 41.4 L 41.6 L (42.0-52.0) % MCV 95.2 (80-100) fl MCH 31.3 (26-34) pg MCHC 32.9 (32-36) g/dl RDW 13.3 (11.5-14.5) % Plt Count 364 (150-375) k/mm3 MPV 10.0 (7.4-10.4) fl Immature Gran % (Auto) 0.4 (0-0.5) % Neut % (Auto) 67.5 (45.5-73.1) % Lymph % (Auto) 12.7 L (18.3-44.2) % [place] % (Auto) 11.9 H (2.6-8.5) % Eos % (Auto) 7.1 H (0-4.4) % Baso % (Auto) 0.4 (0.2-1.2) % Lymph # (Auto) 1.14 (0.9-3.2) K/mm3 [place] # (Auto) 1.1 H (0.1-0.6) K/mm3 Eos # (Auto) 0.6 H (0-0.3) K/mm3 Baso # (Auto) 0.0 (0.0-0.1) K/mm3 Abs Immat Gran (auto) 0.04 H (0.00-0.031) K/mm3 Absolute Neuts (auto) 6.1 (1.3-6.7) K/mm3 Absolute Nucleated RBC 0.000 (0.0-0.012) K/mm3 Nucleated RBC % 0.0 (0.0-0.2) % PT 12.9 (11.1-14.7) Seconds INR 0.9 APTT 28.8 (22.3-36.8) Seconds Sodium 135 L (137-145) mmol/L Potassium 4.6 (3.4-5.0) mmol/L Chloride 102 (98-107) mmol/L Carbon Dioxide 30 (22-30) mmol/L Anion Gap 3 L (4-12) mmol/L BUN 20 (9-20) mg/dL Creatinine 0.90 (0.7-1.3) mg/dL Estim Creat Clear Calc Not Reportable Estimated GFR > 60 (59 - ) Glucose 105 (65-110) mg/dL Calcium 9.6 (8.4-10.2) mg/dL Total Bilirubin 0.4 (0.2-1.3) mg/dL AST 36 (17-59) U/L ALT 36 (6-50) U/L Alkaline Phosphatase 111 (38-126) U/L Total Protein 7.0 (6.3-8.2) g/dL Albumin 4.1 (3.5-5.1) g/dL Blood Type A Positive Antibody Screen Negative <Kayla Johns PA-C - Last Filed: 11/25/24 17:36> Lab Results 11/21/24 11/22/24 Range/Units 19:30 02:23 WBC 9.0 (4.5-10.0) K/mm3 RBC 4.35 L (4.6-6.20) M/mm3 Hgb 13.6 L 14.0 (14.0-18.0) g/dL Hct 41.4 L 41.6 L (42.0-52.0) % MCV 95.2 (80-100) fl MCH 31.3 (26-34) pg MCHC 32.9 (32-36) g/dl RDW 13.3 (11.5-14.5) % Plt Count 364 (150-375) k/mm3 MPV 10.0 (7.4-10.4) fl Immature Gran % (Auto) 0.4 (0-0.5) % Neut % (Auto) 67.5 (45.5-73.1) % Lymph % (Auto) 12.7 L (18.3-44.2) % [place] % (Auto) 11.9 H (2.6-8.5) % Eos % (Auto) 7.1 H (0-4.4) % Baso % (Auto) 0.4 (0.2-1.2) % Lymph # (Auto) 1.14 (0.9-3.2) K/mm3 [place] # (Auto) 1.1 H (0.1-0.6) K/mm3 Eos # (Auto) 0.6 H (0-0.3) K/mm3 Baso # (Auto) 0.0 (0.0-0.1) K/mm3 Abs Immat Gran (auto) 0.04 H (0.00-0.031) K/mm3 Absolute Neuts (auto) 6.1 (1.3-6.7) K/mm3 Absolute Nucleated RBC 0.000 (0.0-0.012) K/mm3 Nucleated RBC % 0.0 (0.0-0.2) % PT 12.9 (11.1-14.7) Seconds INR 0.9 APTT 28.8 (22.3-36.8) Seconds Sodium 135 L (137-145) mmol/L Potassium 4.6 (3.4-5.0) mmol/L Chloride 102 (98-107) mmol/L Carbon Dioxide 30 (22-30) mmol/L Anion Gap 3 L (4-12) mmol/L BUN 20 (9-20) mg/dL Creatinine 0.90 (0.7-1.3) mg/dL Estim Creat Clear Calc Not Reportable Estimated GFR > 60 (59 - ) Glucose 105 (65-110) mg/dL Calcium 9.6 (8.4-10.2) mg/dL Total Bilirubin 0.4 (0.2-1.3) mg/dL AST 36 (17-59) U/L ALT 36 (6-50) U/L Alkaline Phosphatase 111 (38-126) U/L Total Protein 7.0 (6.3-8.2) g/dL Albumin 4.1 (3.5-5.1) g/dL Blood Type A Positive Antibody Screen Negative <Gilberto Woo MD - Last Filed: 11/22/24 06:58> Imaging Data Radiologist's impression: ITS Impressions Abdomen/Pelvis CT 11/22/24 05:43 IMPRESSION: 1. No specific etiology for the patient's symptoms. <Kayla Johns PA-C - Last Filed: 11/25/24 17:36> Critical Care Time Critical Care Time Critical Care Time: No <AIDAN Nails Last Filed: 11/25/24 17:36> Discharge Plan Discharge Clinical Impression: Acute GI bleeding <AIDAN Nails Last Filed: 11/25/24 17:36> Patient Disposition: Acute Care Hospital <AIDAN Nails Last Filed: 11/25/24 17:36> Condition: Stable <AIDAN Nails Last Filed: 11/25/24 17:36> Patient Language: Norwegian <AIDAN Nails Last Filed: 11/25/24 17:36> Prescriptions: No Action trazodone 50 mg tablet 25 mg PO QHS folic acid 400 mcg tablet 0.4 mg PO DAILY omega-3 fatty acids [Fish Oil Concentrate] 1,000 mg capsule 1,000 mg PO DAILY multivitamin Tablet 1 tablet PO DAILY biotin 5,000 mcg tablet,disintegrating 10,000 mcg PO DAILY melatonin 5 mg capsule 5 mg PO HS Excedrin Extra Strength 250-250-65 mg tablet 1 tablet PO Q4-6H PRN (Reason: pain) Qty: 1 0RF cyanocobalamin (vitamin B-12) 5,000 mcg capsule 5,000 mcg PO DAILY docusate sodium [Colace] 100 mg capsule 100 mg PO DAILY PRN (Reason: Constipation) ondansetron HCl 4 mg tablet 4 mg PO Q8H PRN (Reason: Nausea/vomiting) acetaminophen [Tylenol Extra Strength] 500 mg tablet 1,000 mg PO TID PRN (Reason: pain) Qty: 30 0RF oxycodone 5 mg tablet 2.5 mg PO Q8H PRN (Reason: pain) Qty: 10 0RF torsemide 10 mg Tablet 10 mg PO QAM Qty: 30 0RF Rx Instructions: HOLD if SBP is <100 sodium chloride 1,000 mg tablet,soluble 500 mg PO BID Qty: 60 0RF flaxseed oil 1,000 mg Capsule 1,000 mg PO DAILY Rx Instructions: administer with a meal Cetaphil Moisturizing Lotion 1 applic TOPICAL DAILY PRN (Reason: Dry Skin) atorvastatin 20 mg tablet 20 mg PO DAILY clonazepam [Klonopin] 0.5 mg tablet 0.25 mg PO QHS PRN (Reason: insomnia) Qty: 30 1RF Rx Instructions: administer 30 minutes before bedtime <Kayla Johns PA-C - Last Filed: 11/25/24 17:36> Follow-up/Referrals: Wes Alves MD [Primary Care Provider] - <Kayla Johns PA-C - Last Filed: 11/25/24 17:36> Time of Disposition: 06:57 <Kayla Johns PA-C - Last Filed: 11/25/24 17:36> 06:57 <Gilberto Woo MD - Last Filed: 11/22/24 06:58>
[2024-11-21 19:45] LABS: Basophils Percent Auto 0.4 % (0.2-1.2); Eosinophils Absolute Auto 0.6 K/mm3 (0-0.3); Eosinophils Percent Auto 7.1 % (0-4.4); Hematocrit 41.4 % (42.0-52.0); Hemoglobin 13.6 g/dL (14.0-18.0); Immature Granulocyte Absolute 0.04 K/mm3 (0.00-0.031); Immature Granulocyte Percent A 0.4 % (0-0.5); Lymphocytes Absolute Auto 1.14 K/mm3 (0.9-3.2); Lymphocytes Percent Auto 12.7 % (18.3-44.2); Mean Corpuscular HGB Conc 32.9 g/dl (32-36); Mean Corpuscular Hemoglobin 31.3 pg (26-34); Mean Corpuscular Volume 95.2 fl (80-100); Monocytes Absolute Auto 1.1 K/mm3 (0.1-0.6); Monocytes Percent Auto 11.9 % (2.6-8.5); Neutrophils Absolute Auto 6.1 K/mm3 (1.3-6.7); Neutrophils Percent Auto 67.5 % (45.5-73.1); Platelet Count Result 364 k/mm3 (150-375); Red Blood Count 4.35 M/mm3 (4.6-6.20); Red Cell Distribution Width 13.3 % (11.5-14.5)
[2024-11-21 19:56] LABS: INR 0.9; Prothrombin Time 12.9 Seconds (11.1-14.7)
[2024-11-21 19:57] LABS: Partial Thromboplastin Time 28.8 Seconds (22.3-36.8)
[2024-11-21 19:59] LABS: Alanine Aminotransferase 36 U/L (6-50); Albumin Level 4.1 g/dL (3.5-5.1); Alkaline Phosphatase 111 U/L (38-126); Anion Gap 3 mmol/L (4-12); Aspartate Amino Transferase 36 U/L (17-59); Bilirubin,Total 0.4 mg/dL (0.2-1.3); Blood Urea Nitrogen 20 mg/dL (9-20); Calcium 9.6 mg/dL (8.4-10.2); Carbon Dioxide 30 mmol/L (22-30); Chloride 102 mmol/L (98-107); Estimated Glomerular Filt Rate > 60; Glucose 105 mg/dL (65-110); Potassium 4.6 mmol/L (3.4-5.0); Sodium 135 mmol/L (137-145)
[2024-11-22] VITALS (33 sets, daily range): BP systolic 130–169; BP diastolic 57–90; PULSE 61–86; RESP 12–23; TEMP 36.4–36.8; O2SAT 95–100
--- NOTE | 2024-11-22 02:06 | PC.NURSE ---
iv access entered in error on wrong pt.
[2024-11-22 02:28] LABS: Hematocrit 41.6 % (42.0-52.0)
--- NOTE | 2024-11-22 06:59 | PC.NURSE ---
Accepted at [facility] - will call back with accepting dr, room number once one is available.
[2024-11-22] MEDS: MORPHINE SULFATE (*CRX) 2 MG/ML INJ IV PUSH (09:09)
--- OUTSIDE RECORDS SUMMARY | 2024-11-29 05:15 | XMS_ITS | Continuity of Care Document ---
Author Organization [facility] Address [address] [place] [address] [address] [place] [address] Phone Care Team Providers Care Drawer In Hand Name Role Phone Noe PT,MPT,ATC, Davide Unavailable Unavai lable Procedures Procedure Date Therapeutic Activities Neuromuscular Re-Ed Therapeutic Exercise Therapeutic Activities Neuromuscular Re-Ed Therapeutic Exercise Doc neg elder mal no plan PT Evaluation High Complexity Therapeutic Activities Therapeutic Exercise Therapeutic Activities PT Evaluation Moderate Complexity Therapeutic Activities Neuromuscular Re-Ed Therapeutic Activities Neuromuscular Re-Ed Therapeutic Activities Neuromuscular Re-Ed Neuromuscular Re-Ed Therapeutic Activities Therapeutic Activities Neuromuscular Re-Ed Therapeutic Activities Neuromuscular Re-Ed Therapeutic Activities Neuromuscular Re-Ed Therapeutic Activities Neuromuscular Re-Ed Therapeutic Activities Neuromuscular Re-Ed Neuromuscular Re-Ed Therapeutic Activities Therapeutic Activities Neuromuscular Re-Ed Therapeutic Activities Neuromuscular Re-Ed Therapeutic Activities Neuromuscular Re-Ed Therapeutic Exercise Therapeutic Activities Therapeutic Exercise Neuromuscular Re-Ed Therapeutic Exercise Neuromuscular Re-Ed Therapeutic Activities Neuromuscular Re-Ed Therapeutic Activities Therapeutic Exercise Therapeutic Activities Therapeutic Exercise Neuromuscular Re-Ed PT Evaluation Moderate Complexity Therapeutic Exercise Therapeutic Activities Progress Note Therapeutic Exercise Neuromuscular Re-Ed Therapeutic Exercise Neuromuscular Re-Ed Therapeutic Exercise Neuromuscular Re-Ed Therapeutic Exercise Therapeutic Exercise Manual Therapy PT Evaluation Moderate Complexity Therapeutic Exercise PT Re-evaluation Therapeutic Exercise Therapeutic Exercise Neuromuscular Re-Ed Therapeutic Exercise Neuromuscular Re-Ed Therapeutic Exercise Neuromuscular Re-Ed Therapeutic Exercise Neuromuscular Re-Ed Therapeutic Exercise Neuromuscular Re-Ed Therapeutic Exercise Neuromuscular Re-Ed Therapeutic Exercise Neuromuscular Re-Ed Therapeutic Exercise Neuromuscular Re-Ed Progress Note Therapeutic Exercise Neuromuscular Re-Ed Therapeutic Exercise Neuromuscular Re-Ed Therapeutic Exercise Neuromuscular Re-Ed Therapeutic Exercise Neuromuscular Re-Ed Therapeutic Exercise Neuromuscular Re-Ed PT Evaluation Moderate Complexity Therapeutic Exercise Neuromuscular Re-Ed Advance Directives Directive Yes / No Effective Date File Name No Information Encounters Encounter Description Practice Location Reason(s) For Visit Diagnoses Date Provider Providers Copied on Encounter [facility] [address], [place], [place], [id number], tel:[phone] [place] No Information 3 Hasmukh Bennett [place]. [facility] [address], [place], [place], [address], [place] tel:[phone] [place] No Information 3 Hasmukh Bennett [place]. Referring Provider: Joselito Varela, [address] [place], [address]. tel:[phone] [facility] [address], [place], [place], [address], [place] tel:[phone] [place] No Information 3 Hasmukh Bennett [place]. Referring Provider: Joselito Varela, [address] [place], [address]. tel:[phone] [facility] [address], [place], [place], [address], [place] tel:[phone] [place] No Information 3 Hasmukh Bennett [place]. Referring Provider: Joselito Varela, [address] [place], [address]. tel:[phone] [facility] [address], [place], [place], [address], [place] tel:[phone] [place] No Information 2 Hasmukh Bennett [place]. Referring Provider: Miller Varela, [address] [facility] [address], [place], [address]. tel:[phone] [facility] [address], [place], [place], [address], [place] tel:[phone] [place] No Information 2 [facility] [place] [place] Referring Provider: Miller Varela, [address] [facility] [address], [place], [address]. tel:[phone] [facility] [address], [place], [place], [address], [place] tel:[phone] [place] No Information 1 [facility] Referring Provider: Miller Varela, [address] [facility] [address], [place], [address]. tel:[phone] [facility] [address], [place], [address], [place] tel:[phone] [place] No Information 1 [place] Referring Provider: Miller Varela, [address] [facility] [address], [place], [address]. tel:[phone] [facility] [address], [place], [place], [address], [place] tel:[phone] [place] No Information 1 Modglin Tj. . Referring Provider: Miller Varela [address] [facility] [address], [place], [address]. tel:[phone] [facility], [place], [place], [address], [place] tel:[phone] [place] No Information 1 [place] Referring Provider: Miller Varela [address] [facility] [address], [place], [address]. tel:[phone] [facility], [place], [place], [address], [place] tel:[phone] [place] No Information 1 Demetrius Spencer. . Referring Provider: Miller Varela [address], [place], [address]. tel:[phone] [facility] [address], [place], [place], [address], [place] tel:[phone] [place] No Information 1 [facility] , [place]. Referring Provider: Miller Varela, [address] [facility] [address], [place], [address]. tel:[phone] [address], [place], [place], [address], [place] tel:[phone] [place] No Information 1 [facility] [place]. Referring Provider: Miller Varela [address] [facility] [address], [place], [address]. tel:[phone] [facility] [address], [place], [place], [address], [place] tel:[phone] [place] No Information 1 Noe Davide. , [place], [place]. Referring Provider: Miller Varela [address], [place], [address]. tel:[phone] [facility] [address], [place], [place], [address], [place] tel:[phone] [place] No Information 1 Noe Davide. [place]. Referring Provider: Miller Varela [address], [place], [address]. tel:[phone] [facility] [address], [place], [address], [place] tel:[phone] [place] No Information 0 1 Noe Davide. , [place], [place]. Referring Provider: Miller Varela, [address], [place], [address]. tel:[phone] [facility] [address], [place], [place], [address], [place] tel:[phone] [place] No Information Aug-2 1 [place] Referring Provider: Miller Varela, [address] [facility] [address], [place], [address]. tel:[phone] [facility], [address], [place], [address], [place] tel:[phone] [place] No Information Aug- 1 [place] Referring Provider: Miller Varela, [address] [facility] [address], [place], [address]. tel:[phone] [facility] [address], [place], [place], [address], [place] tel:[phone] [place] No Information Aug-2 1 Suleiman Cortes. . Referring Provider: Miller Varela, [address] [facility] [address], [place], [address]. tel:[phone] [facility] [address], [place], [place], [address], [place] tel:[phone] [place] No Information Aug-2 1 Celia Christie. . Referring Provider: Miller Varela, [address] [facility] [address], [place], [address]. tel:[phone] [facility] [address], [place], [place], [address], [place] tel:[phone] [place] No Information Aug-1 1 [place] Referring Provider: Miller Varela [address] [facility] [address], [place], [address]. tel:[phone] [facility], [place], [address], [place] tel:[phone] [place] No Information 1 [place]. Referring Provider: Miller Varela, [address] [facility] [address], [place], [address]. tel:[phone] [facility] [address], [place], [address], [place] tel:[phone] [place] No Information 1 [place]. Referring Provider: Miller Varela, [address] [facility] [address], [place], [address]. tel:[phone] [facility] [address], [place], [place], [address], [place] tel:[phone] [place] Ot symptoms and signs involving the musculoskelet al systemStiffne ss of right shoulder, not elsewhere classifiedAbn ormal postureOther shoulder lesions, right shoulder [place], [place] Referring Provider: Joselito Varela, [address] [place], [address]. tel:[phone] [facility] [facility], [place], [address], [place] tel:[phone] [place] Oth symptoms and signs involving the musculoskelet al systemStiffne ss of right shoulder, not elsewhere classifiedAbn ormal postureOther shoulder lesions, right shoulder 8 [place]. Referring Provider: Joselito Varela, [address] [place], [address]. tel:[phone] [facility], [place], [place], [address], [place] tel:[phone] [place] Oth symptoms and signs involving the musculoskelet al systemStiffne ss of right shoulder, not elsewhere classifiedAbn ormal postureOther shoulder lesions, right shoulder Juan-0 [phone] Noe Davide. , [place], [place]. Referring Provider: Joselito Varela, [address], [place], [address]. tel:[phone] [facility] [facility], [place], [address], [place] tel:[phone] [place] Oth symptoms and signs involving the musculoskelet al systemStiffne ss of right shoulder, not elsewhere classifiedAbn ormal postureOther shoulder lesions, right shoulder 8 Threlkeld Kacy. . Referring Provider: Joselito Varela, [address], [place], [address]. tel:[phone] [facility] [facility], [place], [address], [place] tel:[phone] [place] Oth symptoms and signs involving the musculoskelet al systemStiffne ss of right shoulder, not elsewhere classifiedAbn ormal postureOther shoulder lesions, right shoulder 8 Threlkeld Kacy. . Referring Provider: Joselito Varela, [address], [place], [address]. tel:[phone] [facility], [place], [place], [address], [place] tel:[phone] [place] Oth symptoms and signs involving the musculoskelet al systemStiffne ss of right shoulder, not elsewhere classifiedAbn ormal postureOther shoulder lesions, right shoulder 8 Threlkeld Kacy. . Referring Provider: Joselito Varela, [address], [place], [address]. tel:[phone] [facility], [place], [place], [address], [place] tel:[phone] [place] No Information 8 Cardinal Davide. , [place], [place]. Referring Provider: Sam Robert, [address], [place], [address]. tel:[phone] [facility] [address], [place], [address], [place] tel:[phone] [place] No Information b-2 8 [facility] [place]. Referring Provider: [address], [place], [address]. tel:[phone] [facility] [address], [place], [place], [address], [place] tel:[phone] [place] No Information b-2 8 [facility] Referring Provider: [address], [place], [address]. tel:[phone] [facility] [address], [place], [place], [address], [place] tel:[phone] [place] No Information b 8 [facility] [place]. Referring Provider: [address], [place], [address]. tel:[phone] [facility], [place], [place], [address], [place] tel:[phone] [place] No Information b-0 8 [place]. Referring Provider: [address], [place], [address]. tel:[phone] [facility] [address], [place], [place], [address], [place] tel:[phone] [place] No Information b-0 8 [facility] [place] Referring Provider: [address], [place], [address]. tel:[phone] [facility], [place], [place], [address], [place] tel:[phone] [place] No Information 8 [facility] , [place]. Referring Provider: [address], [place], [address]. tel:[phone] [facility], [address], [place], [place], [address], [place] tel:[phone] [place] No Information 8 [facility] , [place]. Referring Provider: [address], [place], [address]. tel:[phone] [facility] [address], [place], [place], [address], [place] tel:[phone] [place] No Information 8 [facility] , [place]. Referring Provider: [address], [place], [address]. tel:[phone] [facility], [address], [place], [place], [address], [place] tel:[phone] [place] No Information 8 [facility] [place] Referring Provider: [address], [place], [address]. tel:[phone] [facility], [place], [place], [address], [place] tel:[phone] [place] No Information 8 [facility] [place] Referring Provider: [address], [place], [address]. tel:[phone] [facility], [place], [place], [address], [place] tel:[phone] [place] No Information 8 [facility] , [place]. Referring Provider: [address], [place], [address]. tel:[phone] [facility] [address], [place], [place], [address], tel:[phone] [place] No Information 8 [facility]. Referring Provider: [address], [place], [address]. tel:[phone] [facility], [place], [place], [address], tel:[phone] Kayla Spondylosis w/o myelopathy or radiculopathy , lumbar region 0 8 [facility]. Referring Provider: [address], [place], [address]. tel:[phone] [facility] [address], [place], [place], [address], tel:[phone] Kayla Low back pain 8 [facility]. Referring Provider: [address], [place], [address]. tel:[phone] Family History Family Member Type Diagnosis Age At Onset No Information Payers Payer name Insurance type Covered republican ID Jalen neal(s) [employer] Medicare Replacement CI [id number] Social History Type Description Quantity Date Captured Comments Sex Male Smoking Status No Information Chief Complaint And Reason For Visit No Information Reason For Referral Reason For Referral No Information History Of Present Illness Encounter Date Complaint History Of Prese nt Illness No Information Functional Status Date Functional Assessmen t No Information Instructions Date Instruction Additional Infor freda Giving encouragement to exercise Related to Overweight Giving encouragement to exercise Related to Overweight Giving encouragement to exercise Related to Overweight Giving encouragement to exercise Related to Overweight Giving encouragement to exercise Related to Overweight Giving encouragement to exercise Related to Overweight Assessments Type Assessment Date No Information Patient Care Teams Name Effective Dates (start - stop) Status Members No Information
--- OUTSIDE RECORDS SUMMARY | 2024-11-29 05:16 | XMS_ITS | Encounter Summary ---
Author Organization [facility] Healthcare Address [address] [place] [address] Care Team Providers Care Property Utilization Manager Name Role Phone Rodrick Rincon MD Primary Care Provider [phone] Encounter Details Date Type Department Care Team (Late st Contact Info) Description 04/19/2024 Telephone [facility] Cardiology [address] [facility] [address] [place] [address] Hermann Kimbrough MD [facility] [place] [id number] Social History Tobacco Use Types Packs/Day Years Used Date Smoking Tobacco: Former Pipe Smokeless Tobacco: Never Comments:smokes pipe Alcohol Use Standard Drinks/Week Comments Yes 2 (1 standard drink = 0.6 oz pur e alcohol) occassionally Sex and Gender Information Value Date Recorded Sex Assigned at Not on file 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 Gender Identity Not on file Sexual Orientation Not on file documented as of this encounter Miscellaneous Notes * Telephone Encounter - Cee Doshi - 04/19/2024 11:28 AM CDT Ar[facility] Hydrochlorothiazide refills needing to be approved documented in this encounter Plan of Treatment Not on file documented as of this encounter Visit Diagnoses Not on filedocumented in this encounter Care Teams Property Utilization Manager Relationship Specialty Start Date End Date Rodrick Rincon MD [address] [place] [address] PCP - General Internal Medicine 02/06/18 07/02/24 documented as of this encounter
--- OUTSIDE RECORDS SUMMARY | 2024-11-29 05:16 | XMS_ITS | Encounter Summary ---
Author Organization [facility] Address [address] [place] [address] Care Team Providers Care Prepress Specialist Name Role Phone Rodrick Rincon MD Primary Care Provider [phone] Reason for Visit * Cardiology (Routine) - Closed Specialty Diagnoses / Procedures Referred By Contac t Referred To Contact Diagnoses Sick sinus syndrome (CMS/HCC) (HCC) Atrial paroxysmal tachycardia (HCC) Pacemaker Procedures DEVICE CHECK - REMOTE Wilian Olea MD Phone: tel: fax: [facility] Referral ID Status Reason Start Date Expiration Date Visits Re quested Visits Authorized [id number] Closed 01/19/2023 07/19/2024 1 1 Encounter Details Date Type Department Care Team (Latest Contact Info) Description 02/06/2024 7:30 AM CDT Ancillary Procedure [facility] Cardiology [address] [place] [id number] Sick sinus syndrome (CMS/HCC) (HCC); Atrial paroxysmal tachycardia; Pacemaker Social History Tobacco Use Types Packs/Day Years Used Date Smoking Tobacco: Former Pipe Smokeless Tobacco: Never Comments:smokes pipe Alcohol Use Standard Drinks/Week Comments Yes 2 (1 standard drink = 0.6 oz pur e alcohol) occassionally Sex and Gender Information Value Date Recorded Sex Assigned at Not on file 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 DOI 03/05/[address] Bruno[address] [facility] remote home monitor Q3 mo, Office pacer checks Q6 mo. Noise on RV lead. Battery Advisory. Routine DDD Pacemaker Remote. Transmission attached. Battery status-2.89V, 1.5 years remaining to ANGIE. Stable lead impedances, pacing and sensing thresholds. 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 AP-41 %, STONE DRILLER HELPER->99 %. No AT/AF episodes recorded. ?? 8 Ventricular arrhythmias detected, IEGM demonstrates oversensing noise. Medication: ASA, Lisinopril. Follow up: [facility] remote 05/07/2024. Cari Hutiron, RN Wilian Olea MD [facility] PROC EDURES Final Result documented in this encounter Visit Diagnoses Diagnosis Sick sinus syndrome (CMS/HCC) (HCC) Sinoatrial node dysfunction Atrial paroxysmal tachycardia (HCC) Paroxysmal supraventricular tachycardia Pacemaker Cardiac pacemaker in situ documented in this encounter Care Teams Prepress Specialist Relationship Specialty Start Date End Date Rodrick Rincon MD [address] [place] [address] PCP - General Internal Medicine 02/06/18 07/02/24 documented as of this encounter
--- OUTSIDE RECORDS SUMMARY | 2024-11-29 05:16 | XMS_ITS | Encounter Summary ---
Author Organization [facility] Address [address] [place] [address] Care Team Providers Care Gis Software Developer Name Role Phone Rodrick Rincon MD Primary Care Provider [phone] Reason for Visit * Cardiology (Routine) - Closed Specialty Diagnoses / Procedures Referred By Contac t Referred To Contact Diagnoses Sick sinus syndrome (CMS/HCC) (HCC) Atrial paroxysmal tachycardia (HCC) Pacemaker Procedures DEVICE CHECK - REMOTE Wilian Olea MD Phone: tel: fax: [facility] Referral ID Status Reason Start Date Expiration Date Visits Re quested Visits Authorized [id number] Closed 01/19/2023 07/19/2024 1 1 Encounter Details Date Type Department Care Team (Latest Contact Info) Description 05/07/2024 9:15 AM CDT Ancillary Procedure [facility] Cardiology [address] [place] [phone] Sick sinus syndrome (CMS/HCC) (HCC); Atrial paroxysmal tachycardia (HCC); Pacemaker Social History Tobacco Use Types Packs/Day Years Used Date Smoking Tobacco: Former Pipe Smokeless Tobacco: Never Comments:smokes pipe Alcohol Use Standard Drinks/Week Comments Yes 2 (1 standard drink = 0.6 oz pur e alcohol) occassionally Sex and Gender Information Value Date Recorded Sex Assigned at Not on file 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 DOI 03/05/[address] Bruno. [place] remote home monitor Q3 mo, Office pacer checks Q6 mo. Noise on RV lead. Battery Advisory. Routine DDD Pacemaker Remote. Transmission attached. Battery status-2.87V, 1.4 years remaining to ANGIE. Stable lead impedances, pacing and sensing thresholds. Presenting rhythm: AP-HAND FOLDER. AP-43 %, HAND FOLDER->99 %. No AT/AF episodes recorded. ?? 3 Ventricular arrhythmias detected, IEGM demonstrates oversensing noise. Medication: ASA, Lisinopril. Follow up: Office pacemaker f/u 08/14/2024. Cari Huitron, RN Wilian Olea MD [facility] PROC ED[facility] Final Result documented in this encounter Visit Diagnoses Diagnosis Sick sinus syndrome (CMS/HCC) (HCC) Sinoatrial node dysfunction Atrial paroxysmal tachycardia (HCC) Paroxysmal supraventricular tachycardia Pacemaker Cardiac pacemaker in situ documented in this encounter Care Teams Gis Software Developer Relationship Specialty Start Date End Date Rodrick Rincon MD [address] [place] [id number] PCP - General Internal Medicine 02/06/18 07/02/24 documented as of this encounter
--- OUTSIDE RECORDS SUMMARY | 2024-11-29 05:16 | XMS_ITS | Encounter Summary ---
Author Organization [facility] Address [address] [place] [address] Care Team Providers Care Commodity Broker Name Role Phone Wes Alves MD Primary Care Provider [phone] Reason for Visit * Cardiology (Routine) - Closed Specialty Diagnoses / Procedures Referred By Ashanti t Referred To Contact Diagnoses Sick sinus syndrome (CMS/HCC) (HCC) Atrial paroxysmal tachycardia (HCC) Complete atrioventricular block (CMS/HCC) (HCC) Procedures DEVICE CHECK - IN OFFICE Hermann Kimbrough MD [address] [place] [id number] Phone: tel: fax: [facility] Referral ID Status Reason Start Date Expiration Date Visits Re quested Visits Authorized [id number] Closed 05/09/2024 06/08/2025 1 1 Encounter Details Date Type Department Care Team (Latest Contact Info) Description 08/14/2024 2:00 PM CDT Ancillary Procedure [facility] Cardiology [address] [place] [address] Pacemaker (Primary Dx); Sick sinus syndrome (CMS/HCC) (HCC); Atrial paroxysmal tachycardia (HCC); Complete atrioventricular block (CMS/HCC) (HCC) Social History Tobacco Use Types Packs/Day Years Used Date Smoking Tobacco: Former Pipe Smokeless Tobacco: Never Comments:smokes pipe Alcohol Use Standard Drinks/Week Comments Yes 2 (1 standard drink = 0.6 oz pur e alcohol) occassionally Sex and Gender Information Value Date Recorded Sex Assigned at Not on file Legal 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 Gender Identity Not on file Sexual Orientation Not on file documented as of this encounter Plan of Treatment Not on file documented as of this encounter Procedures Procedure Name Priority Date/Time Associated Diagnosis Comments DEVICE CHECK - IN OFFICE Routine 08/14/2024 1:48 PM CDT Sick sinus syndrome (CMS/HCC) (HCC) Atrial paroxysmal tachycardia (HCC) Complete atrioventricular block (CMS/HCC) (HCC) documented in this encounter Results * DEVICE CHECK - IN OFFICE (08/14/2024 1:48 PM CDT) Anatomical Region Laterality Modality Other Narrative 08/20/2024 3:[address] [facility] Dual Pacemaker Dx; SSS, PAT. DOI 03/05/[address] Bruno. [place] remote home monitor Q3 mo, Office pacer checks Q6 mo. Battery Advisory. Supervising MD: Dr Kimbrough. Office DDD Pacemaker evaluation demonstrated appropriate device function. Left pectoral incision well healed without signs of infection noted. Battery function: ??2.86 V, 1.3 years remaining battery life to ANGIE. Appropriate lead measurements noted. Presenting rhythm- ASVP. ??Underlying rhythm- complete heart block. AP- 40 %, MANAGER CASE MANAGEMENT- > 99 %. No Atrial high rate episodes noted. 4 Ventricular high rate episodes noted, iegm's show over sensing noise. Medications; aspirin 81 mg. Ventricular sensitivity changed from 3.0 to 3.5 mV, to try to minimize oversensing noise. ?? See scanned report. Office device f/u 09/10/2025. [place] remote f/u 11/19/2024. Cari Huitron, RN Hermann Kimbrough MD [facility] PROCEDURES F inal Result documented in this encounter Visit Diagnoses Diagnosis Pacemaker- Primary Cardiac pacemaker in situ Sick sinus syndrome (CMS/HCC) (HCC) Sinoatrial node dysfunction Atrial paroxysmal tachycardia (HCC) Paroxysmal supraventricular tachycardia Complete atrioventricular block (CMS/HCC) (HCC) Atrioventricular block, complete documented in this encounter Care Teams Commodity Broker Relationship Specialty Start Date End Date Wes Alves MD PCP - General Family Practice 07/03/24 documented as of this encounter
--- OUTSIDE RECORDS SUMMARY | 2024-11-29 05:16 | XMS_ITS | Referral Summary ---
Author Organization [facility] Address [facility] [place] [address] Care Team Providers Care Exhibit Preparator Name Role Phone Wes Alves MD Primary Care Provider [phone] Encounters Date Type Department Care Team Description 11/22/2024 3:52 PM PRESS OFFBEARER - 11/24/2024 4:21 PM PRESS OFFBEARER Hospital Encounter [facility] Oncology [address] [place] [address] Radu Limon DO Ogunremi, Olumide Omolulu, MD Onaghise, Jude, MD Hematochezia (Primary Dx) Discharge Disposition: Discharge to home or self care 10/11/[address] [facility] Cardiology [address] [facility] [address] [place] [phone] Hermann Kimbrough MD from Last 3 Months Allergies No known active allergies Medications multivitamin tablet tablet take 1 tablet by oral route every day with food 0 0 02/11/20 15 Active omega-3 fatty acids-vitamin E (FISH OIL) 1,000 mg capsule take 1 by Oral route once 0 0 11/02/20 15 Active atorvastatin (LIPITOR) 20 mg tablet take 1 tablet by oral route every day 0 0 08/10/20 16 Active biotin 5,000 mcg tablet,disintegra ting 5,000 mcg. 0 0 02/18/20 17 Active ustekinumab (STELARA) injection Inject 1 mL (90 mg total) under the skin Inject subq every 8 weeks Active ondansetron ODT (ZOFRAN-ODT) 4 mg disintegrating tablet Take 1 tablet (4 mg total) by mouth every 8 (eight) hours as needed for nausea or vomiting Active folic acid (FOLVITE) 400 mcg tablet Take 1 tablet (400 mcg total) by mouth daily Active traZODone (DESYREL) 50 mg tablet TAKE ONE-HALF TABLET BY MOUTH EVERY DAY AT BEDTIME NEEDED FOR INSOMNIA Active hydroCHLOROthiazi de (HYDRODIURIL) 25 mg tablet Take 1 tablet (25 mg total) by mouth daily 90 tablet 1 04/19/20 24 Active flaxseed oiL 1,000 mg capsule Take 1 capsule (1,000 mg total) by mouth daily Active torsemide (DEMADEX) 10 mg tablet Take 1 tablet (10 mg total) by mouth daily Active cyanocobalamin, vitamin B-12, 5,000 mcg tablet, sublingual Place 1 tablet under the tongue daily Active polyethylene glycol (MIRALAX) 17 gram packetIndications :constipation Take 1 packet (17 g total) by mouth daily Active hydrocortisone (ANUSOL-HC) 25 mg suppository Insert 1 suppository (25 mg total) into the rectum 2 (two) times a day for 25 doses 25 suppository 11/24/20 24 2024 Active phenylephrine 0.25%-mineral oil 14%-petrolatum 74.9% 0.25-14-74.9 % ointmentIndicatio ns:Hemorrhoids,Pr uritus Ani,Rectal Pain Insert 1 Application into the rectum 4 (four) times a day as needed (Perianal/recta l irritation or pain) 56 g 11/24/20 24 Active clonazePAM (KlonoPIN) 0.5 mg tablet take 1 tablet by oral route every day 0 0 10/27/20 14 2023 Disconti nued(The rapy complete d) coenzyme D10-mpoxxsc E (CO Q-10, WITH VIT E,) 100-5 mg-unit capsule 1 tablet by mouth once a day 0 0 10/27/20 14 2023 Disconti nued(The rapy complete d) aspirin-acetamino phen-caffeine (EXCEDRIN MIGRAINE) 250-250-65 mg per tablet one tablet as needed for migraine 0 0 02/11/20 15 2023 Disconti nued(The rapy complete d) yujiog-nmq-U-Mn-h erb#21 (GLUCOSAMINE-MSM COMPLEX) tablet 0 0 11/02/20 15 2023 Disconti nued(The rapy complete d) cholecalciferol (VITAMIN D3) 2,000 unit tablet take 1 by Oral route every day 0 0 11/02/20 15 2023 Disconti nued(The rapy complete d) calcium carbonate-vitamin D3 (CALCIUM 500 + D) 500 mg(1,250mg) -400 unit tablet 0 0 11/02/20 15 2023 Disconti nued(The rapy complete d) white petrolatum-minera l oil (eucerin) cream 0 0 11/02/20 15 2023 Disconti nued(The rapy complete d) melatonin 5 mg tablet 5 mg. 0 0 05/16/20 16 2023 Disconti nued(Sto p Taking at Discharg e) meclizine (ANTIVERT) 25 mg tablet take 1 tablet by oral route 3 times every day as needed 0 0 02/18/20 17 2023 Disconti nued(The rapy complete d) acetaminophen (PAIN RELIEVER) 500 mg capsule take 2 capsule by oral route every 6 hours as needed 0 0 02/18/20 17 2023 Disconti nued(The rapy complete d) iron bisgly,ps-FA-B-C# 12-succ (IROSPAN 20/05) 65 mg-65 mg -1,000 mcg (24) tablet 0 0 02/18/20 17 2023 Disconti nued(The rapy complete d) vitamin b complex tablet Take 5,000 tablets by mouth daily 2023 Disconti nued(The rapy complete d) docusate sodium (DOK) 100 mg capsule Take 1 tablet (100 mg total) by mouth 2 (two) times a day as needed for constipation 2023 Disconti nued(The rapy complete d) aspirin 81 mg enteric coated tablet Take 1 tablet (81 mg total) by mouth daily 2023 Disconti nued(The rapy complete d) amLODIPine (NORVASC) 5 mg tablet Take 1 tablet (5 mg total) by mouth daily 90 tablet 3 09/04/20 23 2023 Disconti nued(The rapy complete d) B6/folic/B12/coff ee/phosphatid (NEURIVA PLUS BRAIN PERFORMANCE ORAL) Take by mouth 2023 Disconti nued(The rapy complete d) lisinopriL (PRINIVIL,ZESTRIL ) 40 mg tablet TAKE 1 TABLET(40 MG) BY MOUTH DAILY 90 tablet 1 12/04/19 24 2023 Disconti nued(The rapy complete d) melatonin 5 mg tablet,disintegra ting Take 5 mg by mouth nightly 2023 Disconti nued(Sto p Taking at Discharg e) sodium chloride 1 gram tablet Take 1 tablet (1 g total) by mouth 2 (two) times a day 2023 Disconti nued(Sto p Taking at Discharg e) Active Problems Problem Noted Date Diagnosed Date Hematochezia 11/23/2024 GI bleed 11/22/2024 Pacemaker lead malfunction 07/24/2023 Mixed hyperlipidemia 12/17/2021 Systolic murmur 12/17/2021 Pacemaker 02/06/2018 Crohn's disease ([facility]) 02/17/2017 Overview (04/21/2017): Crohn's disease with other complication, unspecified gastrointestinal tract location Atrial paroxysmal tachycardia ([facility]) 02/18/20 17 Overview (04/21/2017): PAT (paroxysmal atrial tachycardia) 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 DOI 03/05/[address] Bruno[address] Casey remote home monitoring to alternate with Office pacer checks Q6 months. Battery Advisory. Dizziness 04/06/2015 Overview (03/02/2017): Dizziness Lightheadedness 04/06/2015 Overview (03/02/2017): Lightheadedness Benign hypertension 04/06/2015 Overview (03/02/2017): HTN (hypertension), benign Weight decreased 04/06/2015 Overview (03/02/2017): Weight loss Sick sinus syndrome (CMS/HCC) 02/10/2015 Overview (03/02/2017): Sick sinus syndrome Malignant neoplasm of prostate 12/05/2014 Resolved Problems Problem Noted Date Diagnosed Date Resolved Date Hypertension 11/02/2015 01/16/2023 Overview (03/02/2017): Uncontrolled hypertension Dyslipidemia 11/02/2015 12/17/2021 Overview (03/02/2017): Dyslipidemia Immunizations Name Administration Dates Next Due Influenza, Trivalent, IM (MDV) 09/20/2016 Social History Tobacco Use Types Packs/Day Years Used Date Smoking Tobacco: Former Pipe Smokeless Tobacco: Never Tobacco Cessation:Counseling Given: Not Answered Comments:smokes pipe Alcohol Use Standard Drinks/Week Comments Yes 2 (1 standard drink = 0.6 oz pur e alcohol) occassionally AUDIT-C Answer Date Recorded Q1: How often do you have a drink containing alcohol? Never 11/22/2024 Q2: How many drinks containi ng alcohol do you have on a typical day when you are drinking? Patient does not drink Q3: How often do you have si x or more drinks on one occasion? Never 11/22/2024 Personal Safety Answer Date Recorded Have you ever been in or are you currently in a harmful physical or emotional relationship or is someone making you feel afraid or unsafe? Denies 11/22/2024 Sex and Gender Information Value Date Recorded Sex Assigned at Not on file Legal Sex Male 3:29 AM PRESS OFFBEARER Gender Identity Not on file Sexual Orientation Not on file Last Filed Vital Signs Vital Sign Reading Time Taken Comments Blood Pressure 144/60 11/24/2024 7:27 AM PRESS OFFBEARER Pulse 65 11/24/2024 7:27 AM PRESS OFFBEARER Temperature 36.4 ??C (97.6 ??F) 11/24/2024 7:27 AM CS T Respiratory Rate 18 11/24/2024 7:27 AM PRESS OFFBEARER Oxygen Saturation 100% 11/24/2024 7:27 AM PRESS OFFBEARER Inhaled Oxygen Concentration - - Weight 75.2 kg (165 lb 12.6 oz) 11/23/2024 6:00 AM PRESS OFFBEARER Height 175.3 cm (5' 9 ) 11/22/2024 3:54 PM PRESS OFFBEARER Body Mass Index 24.48 11/22/2024 3:54 PM PRESS OFFBEARER Plan of Treatment Not on file Medical Devices Implanted Type Area Impregnator Device Identifier Shelf Expiration Date Model / Serial / Lot 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 (Quantity not on file) Pacemaker Chest [employer] [id number] / [id number] / Procedures Procedure Name Priority Date/Time Associated Diagnosis Comments XR ABDOMEN AP 1 VIEW IP Routine 11/24/2024 8:34 AM PRESS OFFBEARER EGFR Routine 11/24/2024 7:21 AM PRESS OFFBEARER DIFFERENTIAL AUTO Routine 11/24/2024 7:2 1 AM PRESS OFFBEARER FOLATE Routine 11/24/2024 7:21 AM PRESS OFFBEARER VITAMIN B12 Routine 11/24/2024 7:21 AM PRESS OFFBEARER FERRITIN Routine 11/24/2024 7:21 AM PRESS OFFBEARER IRON PROFILE W/ IBC Routine 11/24/2024 7 :21 AM PRESS OFFBEARER CRP (ACUTE PHASE) Routine 11/24/2024 7:2 1 AM PRESS OFFBEARER PROTIME-INR Routine 11/24/2024 7:21 AM PRESS OFFBEARER HEPATIC FUNCTION PANEL Routine 11/24/2024 7:21 AM PRESS OFFBEARER BASIC METABOLIC PANEL Routine 11/24/2024 7:21 AM PRESS OFFBEARER CBC WITH AUTO DIFFERENTIAL Routine 11/24/2024 7:[address] ABDOMEN PELVIS WO CONTRAST ED Urgent/IP Urgent 11/23/2024 4:07 PM PRESS OFFBEARER XR ABDOMEN AP 1 VIEW ED Urgent/IP Urgent 11/23/2024 3:18 PM PRESS OFFBEARER XR ABDOMEN AP 1 VIEW ED Urgent/IP Urgent 11/23/2024 12:51 PM PRESS OFFBEARER EGFR Routine 11/23/2024 2:55 AM PRESS OFFBEARER DIFFERENTIAL AUTO Routine 11/23/2024 2:5 5 AM PRESS OFFBEARER BASIC METABOLIC PANEL Routine 11/23/2024 2:55 AM PRESS OFFBEARER CBC WITH AUTO DIFFERENTIAL Routine 11/23/2024 2:55 AM PRESS OFFBEARER EGFR Routine 11/22/2024 5:41 PM PRESS OFFBEARER DIFFERENTIAL AUTO Routine 11/22/2024 5:4 1 PM PRESS OFFBEARER BASIC METABOLIC PANEL Routine 11/22/2024 5:41 PM PRESS OFFBEARER CBC WITH AUTO DIFFERENTIAL Routine 11/22/2024 5:41 PM PRESS OFFBEARER from Last 3 Months Results * XR Abdomen 1 View AP (11/24/2024 8:34 AM PRESS OFFBEARER) Anatomical Region Laterality Modality Body, Abdomen N/A Computed Radiogr aphy 11/24/2024 9:10 AM PRESS OFFBEARER Impressions 11/24/2024 9:10 AM PRESS OFFBEARER FINDINGS/IMPRESSION: Enteric tube terminates in the distal stomach/1st portion of the duodenum region. Multiple dilated loops of small bowel suggestive of small bowel obstruction, similar to most recent prior. ??No acute fracture. Posterior fusion of L4-S1. Electronically signed by: Marko Olson II, D.O. Narrative 11/24/2024 9:10 AM PRESS OFFBEARER EXAMINATION: XR ABDOMEN AP 1 VIEW DATE: 11/24/2024 8:25 AM HISTORY: Small bowel obstruction. COMPARISON: 11/23/2024. Procedure Note Marko Olson II, DO - 11/24/2024 EXAMINATION: XR ABDOMEN AP 1 VIEW DATE: 11/24/2024 8:25 AM HISTORY: Small bowel obstruction. COMPARISON: 11/23/2024. IMPRESSION: FINDINGS/IMPRESSION: Enteric tube terminates in the distal stomach/1st portion of the duodenum region. Multiple dilated loops of small bowel suggestive of small bowel obstruction, similar to most recent prior. No acute fracture. Posterior fusion of L4-S1. Electronically signed by: Marko Olson II, D.O. us Kendrick Lewis MD IMG XR PROCEDURES Final Result * eGFR (11/24/2024 7:21 AM PRESS OFFBEARER) eGFR 88 >=60 mL/min/1. 73 m2 Comment: Interpretive Data Reference Interval Normal ?>/= 90 mL/min/1.73m2 Mildly decreased* ? 60 - 89 mL/min/1.73m2 Mildly to moderately decreased ?45 - 59 mL/min/1.73m2 Moderately to severely decreased ??30 - 44 mL/min/1.73m2 Severely decreased ?15 - 29 mL/min/1.73m2 Kidney Failure ?< 15 ??mL/min/1.73m2 *Relative to young adult level Estimated glomerular filtration rate is determined by the 2020 CKD-EPI equation recommended by the National Kidney Foundation (A Unifying Approach to GFR Estimation: Recommendations of the NKF-ASK Task Force on Reassessing the Inclusion of Race in Diagnosing Kidney Disease, JASN 2020). The CKD-EPI equation should not be used for patients with unstable renal function and has not been validated in children and those over 70. Current interpretive data was last reviewed 2021. Blood 11/24/2024 7:21 AM PRESS OFFBEARER 11/24/2024 7:51 AM PRESS OFFBEARER us Brianne Khnana NP LAB BLOOD ORDERABLES Final Result [facility] [address] [place] [address] * (ABNORMAL) Differential, auto (11/24/2024 7:21 AM PRESS OFFBEARER) Neutrophil abs 5.9 1.5 - 6.5 K/cumm Imm gran abs 0.0 0.0 - 0.1 K/cumm [facility] Lymphocyte abs 1.0 0.8 - 3.3 K/cumm [facility] Monocyte abs 1.2(H) 0.2 - 0.8 K/cumm [facility] Eosinophil abs 0.6(H) 0.0 - 0.5 K/cumm [facility] Basophil abs 0.0 0.0 - 0.1 K/cumm [facility] Neutrophil pct 67.4 % [facility] Comment: Interpretive Data Percent cell count reference ranges are not reported, since discordance with absolute values may lead to misinterpretation of CBC data. Current Interpretive Data was last revised on 2018. Imm gran pct 0.3 % [facility] Comment: Interpretive Data Percent cell count reference ranges are not reported, since discordance with absolute values may lead to misinterpretation of CBC data. Current Interpretive Data was last revised on 2018. Lymphocyte pct 11.6 % [facility] Comment: Interpretive Data Percent cell count reference ranges are not reported, since discordance with absolute values may lead to misinterpretation of CBC data. Current Interpretive Data was last revised on 2018. Monocyte pct 13.4 % [facility] Comment: Interpretive Data Percent cell count reference ranges are not reported, since discordance with absolute values may lead to misinterpretation of CBC data. Current Interpretive Data was last revised on 2018. Eosinophil pct 7.0 % [facility] Comment: Interpretive Data Percent cell count reference ranges are not reported, since discordance with absolute values may lead to misinterpretation of CBC data. Current Interpretive Data was last revised on 2018. Basophil pct 0.3 % [facility] Comment: Interpretive Data Percent cell count reference ranges are not reported, since discordance with absolute values may lead to misinterpretation of CBC data. Current Interpretive Data was last revised on 2018. Blood 11/24/2024 7:21 AM PRESS OFFBEARER 11/24/2024 7:52 AM PRESS OFFBEARER Brianne Khanna NP LAB BLOOD ORDERABLES Final Result Performing Organization Address City/[facility]/ZIP Co de Phone Number [facility] [address] [place] [address] * (ABNORMAL) Iron profile w/ IBC (11/24/2024 7:21 AM PRESS OFFBEARER) Iron 36(L) 50 - 150 mcg/dl TIBC 288 250 - 400 mcg/dL [facility] Transferrin saturation 13(L) 20 - 50 % [facility] Blood 11/24/2024 7:21 AM PRESS OFFBEARER 11/24/2024 7:51 AM PRESS OFFBEARER Merle Gresham MD LAB BLOOD ORDERABLES Final Result [facility] [address] Department of Laboratories [place], [place] [id number] * (ABNORMAL) CBC with auto differential (11/24/2024 7:21 AM PRESS OFFBEARER) WBC 8.7 3.8 - 9.9 K/cumm Hgb 13.7 13.0 - 17.5 g/dL [facility] Hct 43.4 38.9 - 50.3 % [facility] Plt 286 150 - 400 K/cumm [facility] MPV 10.0 9.1 - 12.3 fL [facility] RBC 4.51 4.30 - 5.80 M/cumm [facility] MCV 96.2 81.3 - 96.4 fL [facility] MCH 30.4 27.1 - 33.3 pg [facility] MCHC 31.6(L) 32.3 - 35.7 g/dL [facility] RDW CV 13.3 11.1 - 14.9 % [facility] RDW SD 47.3 35.7 - 48.1 fL [facility] NRBC abs 0.00 0.00 - 0.01 K/cumm [facility] Blood 11/24/2024 7:21 AM PRESS OFFBEARER 11/24/2024 7:52 AM PRESS OFFBEARER us Brianne Khanna NP LAB BLOOD ORDERABLES Final Result [facility] [address] [address] [place] [address] * Protime-INR (11/24/2024 7:21 AM PRESS OFFBEARER) Pathologist [facility] PT 12.1 9.7 - 13.0 sec INR 1.12 0.90 - 1.20 [facility] Comment: Interpretive data Oral anticoagulant therapeutic ranges: Venous thromboembolism prophylaxis or treatment: 2.0-3.0 CARDIOLOGY Standard range: 2.0-3.0 High-intensity range: 2.5-3.5 Refer to indication-specific guidelines for appropriate target ranges for prosthetic heart valve replacement. Current interpretive data was last revised on 2019. Blood 11/24/2024 7:21 AM PRESS OFFBEARER 11/24/2024 7:52 AM PRESS OFFBEARER us Merle Gresham MD LAB BLOOD ORDERABLES Final Result Performing Organization Address [facility] Co de Phone Number [facility] [address] [address] [place] [address] * (ABNORMAL) CRP (acute phase) (11/24/2024 7:21 AM PRESS OFFBEARER) CRP 32.1(H) <=10.0 mg/L Blood 11/24/2024 7:21 AM PRESS OFFBEARER 11/24/2024 7:51 AM PRESS OFFBEARER us Merle Gresham MD LAB BLOOD ORDERABLES Final Result Performing Organization Address [facility] Co de Phone Number [facility] [address] [address] [facility][1] [place] [address] * Folate (11/24/2024 7:21 AM PRESS OFFBEARER) Pathologist [facility] Folic acid >20.0 >=5.0 ng/mL Comment:Hemolysis present. R esults may be affected. Blood 11/24/2024 7:21 AM PRESS OFFBEARER 11/24/2024 7:51 AM PRESS OFFBEARER us Merle Gresham MD LAB BLOOD ORDERABLES Final Result Performing Organization Address [facility] de Phone Number [facility] [address] [address] [place] [address] * Ferritin (11/24/2024 7:21 AM PRESS OFFBEARER) Pathologist [facility] Ferritin 95 30 - 400 ng/mL Blood 11/24/2024 7:21 AM PRESS OFFBEARER 11/24/2024 7:51 AM PRESS OFFBEARER Merle Gersham MD LAB BLOOD ORDERABLES Final Result Performing Organization Address [facility] Co de Phone Number [facility] [address] [address] [place] [address] * (ABNORMAL) Vitamin B12 (11/24/2024 7:21 AM PRESS OFFBEARER) Vitamin B12 >4,000(H) 230 - 1,250 pg/mL Blood 11/24/2024 7:21 AM PRESS OFFBEARER 11/24/2024 7:51 AM PRESS OFFBEARER Merle Gresham MD LAB BLOOD ORDERABLES Final Result Performing Organization Address [facility] Phone Number [facility] [address] [address] [facility] [place] [phone] * Hepatic function panel (11/24/2024 7:21 AM PRESS OFFBEARER) Bilirubin, total 0.4 0.1 - 1.2 mg/dL Bilirubin, direct 0.1 0.1 - 0.3 mg/dL [facility] Protein, pl 6.8 6.5 - 8.5 g/dL [facility] Albumin 3.5 3.5 - 5.0 g/dL [facility] Alk phos 116 40 - 130 Units/L [facility] ALT 22 7 - 55 Units/L [facility] AST 29 10 - 50 Units/L [facility] Blood 11/24/2024 7:21 AM PRESS OFFBEARER 11/24/2024 7:51 AM PRESS OFFBEARER Merle Gresham MD LAB BLOOD ORDERABLES Final Result Performing Organization Address [facility] Phone Number [facility] [address] [address] [facility] [place] [address] * Basic metabolic panel (11/24/2024 7:21 AM PRESS OFFBEARER) Sodium 137 135 - 145 mmol/L Potassium, pl 3.4 3.3 - 4.9 mmol/L [facility] Chloride 101 97 - 110 mmol/L [facility] CO2 24 22 - 32 mmol/L [facility] Anion gap 12 2 - 15 mmol/L [facility] BUN 9 6 - 25 mg/dL [facility] Creatinine 0.80 0.80 - 1.30 mg/dL [facility] Glucose 102 70 - 199 mg/dL [facility] Comment: Interpretive Data Fasting glucose >/= 126 mg/dl is diagnostic for diabetes. ?? Fasting is defined as no caloric intake for at least 8 hours. Fasting glucose between 100 mg/dl to 125 mg/dl is diagnostic of prediabetes. In a patient with classic symptoms of hyperglycemia or hyperglycemic crisis, a random glucose >/= 200 mg/dl is diagnostic for diabetes. In the absence of unequivocal hyperglycemia, results should be confirmed by repeat testing. The classification and Diagnosis of Diabetes Diabetes Care 2021; 46: S19-S40. Current interpretive data was last revised 2022. Calcium 8.9 8.5 - 10.3 mg/dL [facility] Blood 11/24/2024 7:21 AM PRESS OFFBEARER 11/24/2024 7:51 AM PRESS OFFBEARER us Brianne Khanna NP LAB BLOOD ORDERABLES Final Result [facility] [address] [address] [place] [address] * CT Abdomen Pelvis WO Contrast (11/23/2024 4:07 PM PRESS OFFBEARER) Anatomical Region Laterality Modality Body N/A Computed Tomogra phy 11/23/2024 4:02 PM PRESS OFFBEARER Impressions 11/24/2024 5:49 AM PRESS OFFBEARER Circumferential rectal thickening, which can be seen with proctitis. Mild stranding along the descending colon could represent colitis. No evidence of bowel obstruction. Preliminary results were provided by the tele-radiologist at 6:02 PM on 11/23/2024. Electronically signed by: Jose Arevalo M.D. Narrative 11/24/2024 5:49 AM PRESS OFFBEARER EXAMINATION: ??Computed tomography of the abdomen and pelvis without intravenous contrast HISTORY: Bloody stools, reported history is bowel obstruction suspected TECHNIQUE: ??Transaxial computed tomographic images of the abdomen and pelvis were obtained without intravenous contrast according to the standard protocol. COMPARISON: None available FINDINGS: ?? Images of the lower thorax demonstrates partially imaged pacer leads in the right atrium and right ventricle. ??Coronary artery calcifications. ??Nasogastric tube terminates in the peripyloric region. ??No pleural or pericardial effusion. ??Minimal dependent atelectasis. ??Mild cardiomegaly. Normal noncontrast appearance of the liver, gallbladder, spleen. ??1.5 cm right adrenal adenoma. ??Normal left adrenal gland. ??Normal noncontrast appearance of the pancreas. ??No hydronephrosis or nephrolithiasis. There is circumferential thickening of the rectum. ??Mild pericolonic stranding along the descending colon. ??The remaining colon contains stool and gas. ??Normal appendix. Urinary bladder is decompressed. ??Prostate is absent. ??No ascites or pneumoperitoneum. Abdominal aorta is tortuous, atherosclerotic, and nonaneurysmal. ??No lymphadenopathy. Changes of lumbosacral decompression and posterior fusion from L4 through S1. ??Severe degenerative changes in the spine. ??Severe hip osteoarthritis. Procedure Note Jose Arevalo MD - 11/24/2024 EXAMINATION: Computed tomography of the abdomen and pelvis without intravenous contrast HISTORY: Bloody stools, reported history is bowel obstruction suspected TECHNIQUE: Transaxial computed tomographic images of the abdomen and pelvis were obtained without intravenous contrast according to the standard protocol. COMPARISON: None available FINDINGS: Images of the lower thorax demonstrates partially imaged pacer leads in the right atrium and right ventricle. Coronary artery calcifications. Nasogastric tube terminates in the peripyloric region. No pleural or pericardial effusion. Minimal dependent atelectasis. Mild cardiomegaly. Normal noncontrast appearance of the liver, gallbladder, spleen. 1.5 cm right adrenal adenoma. Normal left adrenal gland. Normal noncontrast appearance of the pancreas. No hydronephrosis or nephrolithiasis. There is circumferential thickening of the rectum. Mild pericolonic stranding along the descending colon. The remaining colon contains stool and gas. Normal appendix. Urinary bladder is decompressed. Prostate is absent. No ascites or pneumoperitoneum. Abdominal aorta is tortuous, atherosclerotic, and nonaneurysmal. No lymphadenopathy. Changes of lumbosacral decompression and posterior fusion from L4 through S1. Severe degenerative changes in the spine. Severe hip osteoarthritis. IMPRESSION: Circumferential rectal thickening, which can be seen with proctitis. Mild stranding along the descending colon could represent colitis. No evidence of bowel obstruction. Preliminary results were provided by the tele-radiologist at 6:02 PM on 11/23/2024. Electronically signed by: Jose Arevalo M.D. us Kendrick Lewis MD IMG CT PROCEDURES Final Result * XR Abdomen 1 View AP (11/23/2024 3:18 PM PRESS OFFBEARER) Anatomical Region Laterality Modality Body, Abdomen N/A Computed Radiogr aphy 11/23/2024 3:38 PM PRESS OFFBEARER Impressions 11/23/2024 3:38 PM PRESS OFFBEARER Findings as described above. Electronically signed by: Valentino Soto M.D. Narrative 11/23/2024 3:38 PM PRESS OFFBEARER EXAMINATION: XR ABDOMEN AP 1 VIEW HISTORY: The patient is an 84-year-old male who has had placement of a nasogastric tube. ??Comparison made with the previous study done at 12:41 PM. TECHNIQUE: Portable view of the upper two thirds of the abdomen. FINDINGS: The distal tip of the nasogastric tube is in the antrum of the stomach. ??Nonspecific bowel gas pattern. Procedure Note Valentino Soto MD - 11/23/2024 EXAMINATION: XR ABDOMEN AP 1 VIEW HISTORY: The patient is an 84-year-old male who has had placement of a nasogastric tube. Comparison made with the previous study done at 12:41 PM. TECHNIQUE: Portable view of the upper two thirds of the abdomen. FINDINGS: The distal tip of the nasogastric tube is in the antrum of the stomach. Nonspecific bowel gas pattern. IMPRESSION: Findings as described above. Electronically signed by: Valentino Soto M.D. us Kendrick Lewis MD IMG XR PROCEDURES Final Result * XR Abdomen 1 View AP (11/23/2024 12:51 PM PRESS OFFBEARER) Anatomical Region Laterality Modality Body, Abdomen N/A Computed Radiogr aphy 11/23/2024 1:04 PM PRESS OFFBEARER Impressions 11/23/2024 1:04 PM PRESS OFFBEARER FINDINGS/IMPRESSION: Multiple dilated loops of small bowel throughout the central abdomen suggestive of small bowel obstruction. ??Gaseous distention of the colon is also present. ??Ileus considered in the differential diagnosis. ??Moderate stool burden. 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 ??No acute fracture. Electronically signed by: Marko Olson II, D.O. Narrative 11/23/2024 1:04 PM PRESS OFFBEARER EXAMINATION: XR ABDOMEN AP 1 VIEW DATE: 11/23/2024 12:25 PM HISTORY: Fecal impaction. COMPARISON: None. Procedure Note Marko Olson II, DO - 11/23/2024 EXAMINATION: XR ABDOMEN AP 1 VIEW DATE: 11/23/2024 12:25 PM HISTORY: Fecal impaction. COMPARISON: None. IMPRESSION: FINDINGS/IMPRESSION: Multiple dilated loops of small bowel throughout the central abdomen suggestive of small bowel obstruction. Gaseous distention of the colon is also present. Ileus considered in the differential diagnosis. Moderate stool burden. 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 No acute fracture. Electronically signed by: Marko Olson II, D.O. us Kendrick Lewis MD IMG XR PROCEDURES Final Result * eGFR (11/23/2024 2:55 AM PRESS OFFBEARER) eGFR 88 >=60 mL/min/1. 73 m2 Comment: Interpretive Data Reference Interval Normal ?>/= 90 mL/min/1.73m2 Mildly decreased* ? 60 - 89 mL/min/1.73m2 Mildly to moderately decreased ?45 - 59 mL/min/1.73m2 Moderately to severely decreased ??30 - 44 mL/min/1.73m2 Severely decreased ?15 - 29 mL/min/1.73m2 Kidney Failure ?< 15 ??mL/min/1.73m2 *Relative to young adult level Estimated glomerular filtration rate is determined by the 2020 CKD-EPI equation recommended by the National Kidney Foundation (A Unifying Approach to GFR Estimation: Recommendations of the NKF-ASK Task Force on Reassessing the Inclusion of Race in Diagnosing Kidney Disease, JASN 2020). The CKD-EPI equation should not be used for patients with unstable renal function and has not been validated in children and those over 70. Current interpretive data was last reviewed 2021. Blood 11/23/2024 2:55 AM PRESS OFFBEARER 11/23/2024 3:23 AM PRESS OFFBEARER us Brianne Khanna NP LAB BLOOD ORDERABLES Final Result [facility] [address] [place] [address] * (ABNORMAL) Differential, auto (11/23/2024 2:55 AM PRESS OFFBEARER) Neutrophil abs 7.1(H) 1.5 - 6.5 K/cumm Imm gran abs 0.1 0.0 - 0.1 K/cumm [facility] Lymphocyte abs 1.2 0.8 - 3.3 K/cumm [facility] Monocyte abs 1.2(H) 0.2 - 0.8 K/cumm [facility] Eosinophil abs 0.7(H) 0.0 - 0.5 K/cumm [facility] Basophil abs 0.0 0.0 - 0.1 K/cumm [facility] Neutrophil pct 68.8 % [facility] Comment: Interpretive Data Percent cell count reference ranges are not reported, since discordance with absolute values may lead to misinterpretation of CBC data. Current Interpretive Data was last revised on 2018. Imm gran pct 0.7 % [facility] Comment: Interpretive Data Percent cell count reference ranges are not reported, since discordance with absolute values may lead to misinterpretation of CBC data. Current Interpretive Data was last revised on 2018. Lymphocyte pct 11.4 % [facility] Comment: Interpretive Data Percent cell count reference ranges are not reported, since discordance with absolute values may lead to misinterpretation of CBC data. Current Interpretive Data was last revised on 2018. Monocyte pct 12.0 % [facility] Comment: Interpretive Data Percent cell count reference ranges are not reported, since discordance with absolute values may lead to misinterpretation of CBC data. Current Interpretive Data was last revised on 2018. Eosinophil pct 6.9 % [facility] Comment: Interpretive Data Percent cell count reference ranges are not reported, since discordance with absolute values may lead to misinterpretation of CBC data. Current Interpretive Data was last revised on 2018. Basophil pct 0.2 % [facility] Comment: Interpretive Data Percent cell count reference ranges are not reported, since discordance with absolute values may lead to misinterpretation of CBC data. Current Interpretive Data was last revised on 2018. Blood 11/23/2024 2:55 AM PRESS OFFBEARER 11/23/2024 3:23 AM PRESS OFFBEARER Brianne Khanna NP LAB BLOOD ORDERABLES Final Result [facility] [address] [place] [address] * (ABNORMAL) CBC with auto differential (11/23/2024 2:55 AM PRESS OFFBEARER) WBC 10.3(H) 3.8 - 9.9 K/cumm Hgb 12.0(L) 13.0 - 17.5 g/dL [facility] Hct 37.8(L) 38.9 - 50.3 % [facility] Plt 311 150 - 400 K/cumm [facility] MPV 9.8 9.1 - 12.3 fL [facility] RBC 3.98(L) 4.30 - 5.80 M/cumm [facility] MCV 95.0 81.3 - 96.4 fL [facility] MCH 30.2 27.1 - 33.3 pg [facility] MCHC 31.7(L) 32.3 - 35.7 g/dL [facility] RDW CV 13.2 11.1 - 14.9 % [facility] RDW SD 46.0 35.7 - 48.1 fL [facility] NRBC abs 0.00 0.00 - 0.01 K/cumm [facility] Blood 11/23/2024 2:55 AM PRESS OFFBEARER 11/23/2024 3:23 AM PRESS OFFBEARER Brianne Khanna NP LAB BLOOD ORDERABLES Final Result [facility] [address] [place] [address] * Basic metabolic panel (11/23/2024 2:55 AM PRESS OFFBEARER) Pathologist [facility] Sodium 139 135 - 145 mmol/L Potassium, pl 3.9 3.3 - 4.9 mmol/L [facility] Chloride 103 97 - 110 mmol/L [facility] CO2 24 22 - 32 mmol/L [facility] Anion gap 12 2 - 15 mmol/L [facility] BUN 14 6 - 25 mg/dL [facility] Creatinine 0.81 0.80 - 1.30 mg/dL [facility] Glucose 95 70 - 199 mg/dL [facility] Comment: Interpretive Data Fasting glucose >/= 126 mg/dl is diagnostic for diabetes. ?? Fasting is defined as no caloric intake for at least 8 hours. Fasting glucose between 100 mg/dl to 125 mg/dl is diagnostic of prediabetes. In a patient with classic symptoms of hyperglycemia or hyperglycemic crisis, a random glucose >/= 200 mg/dl is diagnostic for diabetes. In the absence of unequivocal hyperglycemia, results should be confirmed by repeat testing. The classification and Diagnosis of Diabetes Diabetes Care 2021; 46: S19-S40. Current interpretive data was last revised 2022. Calcium 8.9 8.5 - 10.3 mg/dL [facility] Blood 11/23/2024 2:55 AM PRESS OFFBEARER 11/23/2024 3:23 AM PRESS OFFBEARER Brianne Khanna NP LAB BLOOD ORDERABLES Final Result [facility] [address] [place] [address] * eGFR (11/22/2024 5:41 PM PRESS OFFBEARER) eGFR >90 >=60 mL/min/1. 73 m2 Comment: Interpretive Data Reference Interval Normal ?>/= 90 mL/min/1.73m2 Mildly decreased* ? 60 - 89 mL/min/1.73m2 Mildly to moderately decreased ?45 - 59 mL/min/1.73m2 Moderately to severely decreased ??30 - 44 mL/min/1.73m2 Severely decreased ?15 - 29 mL/min/1.73m2 Kidney Failure ?< 15 ??mL/min/1.73m2 *Relative to young adult level Estimated glomerular filtration rate is determined by the 2020 CKD-EPI equation recommended by the National Kidney Foundation (A Unifying Approach to GFR Estimation: Recommendations of the NKF-ASK Task Force on Reassessing the Inclusion of Race in Diagnosing Kidney Disease, JASN 2020). The CKD-EPI equation should not be used for patients with unstable renal function and has not been validated in children and those over 70. Current interpretive data was last reviewed 2021. Blood 11/22/2024 5:41 PM PRESS OFFBEARER 11/22/2024 5:50 PM PRESS OFFBEARER Brianne Khanna NP LAB BLOOD ORDERABLES Final Result [facility] [address] Department [place] [address] * (ABNORMAL) Differential, auto (11/22/2024 5:41 PM PRESS OFFBEARER) Neutrophil abs 7.8(H) 1.5 - 6.5 K/cumm Imm gran abs 0.1 0.0 - 0.1 K/cumm [facility] Lymphocyte abs 1.0 0.8 - 3.3 K/cumm [facility] Monocyte abs 1.2(H) 0.2 - 0.8 K/cumm [facility] Eosinophil abs 0.7(H) 0.0 - 0.5 K/cumm [facility] Basophil abs 0.0 0.0 - 0.1 K/cumm [facility] Neutrophil pct 72.0 % [facility] Comment: Interpretive Data Percent cell count reference ranges are not reported, since discordance with absolute values may lead to misinterpretation of CBC data. Current Interpretive Data was last revised on 2018. Imm gran pct 0.6 % [facility] Comment: Interpretive Data Percent cell count reference ranges are not reported, since discordance with absolute values may lead to misinterpretation of CBC data. Current Interpretive Data was last revised on 2018. Lymphocyte pct 9.3 % [facility] Comment: Interpretive Data Percent cell count reference ranges are not reported, since discordance with absolute values may lead to misinterpretation of CBC data. Current Interpretive Data was last revised on 2018. Monocyte pct 10.8 % [facility] Comment: Interpretive Data Percent cell count reference ranges are not reported, since discordance with absolute values may lead to misinterpretation of CBC data. Current Interpretive Data was last revised on 2018. Eosinophil pct 6.9 % [facility] Comment: Interpretive Data Percent cell count reference ranges are not reported, since discordance with absolute values may lead to misinterpretation of CBC data. Current Interpretive Data was last revised on 2018. Basophil pct 0.4 % [facility] Comment: Interpretive Data Percent cell count reference ranges are not reported, since discordance with absolute values may lead to misinterpretation of CBC data. Current Interpretive Data was last revised on 2018. Blood 11/22/2024 5:41 PM PRESS OFFBEARER 11/22/2024 5:50 PM PRESS OFFBEARER us Brianne Khanna NP LAB BLOOD ORDERABLES Final Result [facility] [address] Department [place] [address] * (ABNORMAL) CBC with auto differential (11/22/2024 5:41 PM PRESS OFFBEARER) WBC 10.8(H) 3.8 - 9.9 K/cumm Hgb 13.2 13.0 - 17.5 g/dL [facility] Hct 41.2 38.9 - 50.3 % [facility] Plt 364 150 - 400 K/cumm [facility] MPV 9.6 9.1 - 12.3 fL [facility] RBC 4.36 4.30 - 5.80 M/cumm [facility] MCV 94.5 81.3 - 96.4 fL [facility] MCH 30.3 27.1 - 33.[address] [facility] MCHC 32.0(L) 32.3 - 35.7 g/dL [facility] RDW CV 13.2 11.1 - 14.9 % [facility] RDW SD 46.1 35.7 - 48.1 fL [facility] NRBC abs 0.00 0.00 - 0.01 K/cumm [facility] Blood 11/22/2024 5:41 PM PRESS OFFBEARER 11/22/2024 5:50 PM PRESS OFFBEARER Brianne Khanna NP LAB BLOOD ORDERABLES Final Result [facility] [address] [place] [address] * (ABNORMAL) Basic metabolic panel (11/22/2024 5:41 PM PRESS OFFBEARER) Sodium 138 135 - 145 mmol/L Potassium, pl 4.2 3.3 - 4.9 mmol/L [facility] Chloride 101 97 - 110 mmol/L [facility] CO2 23 22 - 32 mmol/L [facility] Anion gap 14 2 - 15 mmol/L [facility] BUN 11 6 - 25 mg/dL [facility] Creatinine 0.71(L) 0.80 - 1.30 mg/dL [facility] Glucose 104 70 - 199 mg/dL [facility] Comment: Interpretive Data Fasting glucose >/= 126 mg/dl is diagnostic for diabetes. ?? Fasting is defined as no caloric intake for at least 8 hours. Fasting glucose between 100 mg/dl to 125 mg/dl is diagnostic of prediabetes. In a patient with classic symptoms of hyperglycemia or hyperglycemic crisis, a random glucose >/= 200 mg/dl is diagnostic for diabetes. In the absence of unequivocal hyperglycemia, results should be confirmed by repeat testing. The classification and Diagnosis of Diabetes Diabetes Care 202; 46: S19-S40. Current interpretive data was last revised 2022. Calcium 9.2 8.5 - 10.3 mg/dL [facility] Blood 11/22/2024 5:41 PM PRESS OFFBEARER 11/22/2024 5:50 PM PRESS OFFBEARER Brianne Khanna NP LAB BLOOD ORDERABLES Final Result [facility] [address] [place] [address] from Last 3 Months Insurance MEDICARE [employer] [facility]IC[facility] [employer] [facility] Address: [address] [place] [address] Advance Directives For more information, please contact: [phone] * Full Code (Latest Code Status on File) Date Activated Date Inactivated Comments 11/22/2024 4:29 PM 11/24/2024 8:21 PM Care Teams Exhibit Preparator Relationship Specialty Start Date End Date Wes Alves MD PCP - General Family Practice 07/03/24
--- OUTSIDE RECORDS SUMMARY | 2024-11-29 05:16 | XMS_ITS | Encounter Summary ---
Author Organization [facility] Healthcare Address [address] [place] [address] Care Team Providers Care Responder Name Role Phone Rodrick Rincon MD Primary Care Provider Reason for Referral * Cardiology (Routine) - Closed Specialty Diagnoses / Procedures Referred By [facility] Referred To Contact Diagnoses Sick sinus syndrome (CMS/HCC) (HCC) Atrial paroxysmal tachycardia (HCC) Complete atrioventricular block (CMS/HCC) (HCC) Procedures DEVICE CHECK - IN OFFICE Hermann Kimbrough MD [address] [address] Phone: tel: fax: [facility] Medical [facility] Referral ID Status Reason Start Date Expiration Date Visits Re quested Visits Authorized [id number] Closed 05/09/2024 06/08/2025 1 1 * Cardiology (Routine) - Authorized Specialty Diagnoses / Procedures [facility] Referred To Contact Cardiology Diagnoses Sick sinus syndrome (CMS/HCC) (HCC) Atrial paroxysmal tachycardia (HCC) Complete atrioventricular block (CMS/HCC) (HCC) Procedures DEVICE CHECK - REMOTE Hermann Kimbrough MD [address] [facility] [address] [place] [address] Phone: tel: fax: [facility] Referral ID Status Reason Start Date Expiration Date V isits Requested Visits Authorized [id number] Authorized 05/09/2024 11/08/2025 1 1 * Cardiology (Routine) - Authorized Specialty Diagnoses / Procedures Referred By Contac t Referred To Contact Cardiology Diagnoses Sick sinus syndrome (CMS/HCC) (HCC) Atrial paroxysmal tachycardia (HCC) Complete atrioventricular block (CMS/HCC) (HCC) Procedures DEVICE CHECK - REMOTE Hermann Kimbrough MD [address] [facility] [address] [place] [address] Phone: tel: fax: [facility] Referral ID Status Reason Start Date Expiration Date V isits Requested Visits Authorized [id number] Authorized 05/09/2024 11/08/2025 1 1 * Cardiology (Routine) - Authorized Specialty Diagnoses / Procedures Referred By Contac t Referred To Contact Cardiology Diagnoses Sick sinus syndrome (CMS/HCC) (HCC) Atrial paroxysmal tachycardia (HCC) Complete atrioventricular block (CMS/HCC) (HCC) Procedures DEVICE CHECK - REMOTE Hermann Kimbrough MD [address] [address] Phone: tel: fax: [facility] Referral ID Status Reason Start Date Expiration Date V isits Requested Visits Authorized [id number] Authorized 05/09/2024 11/08/2025 1 1 Encounter Details Date Type Department Care Team (Late st Contact Info) Description 05/09/2024 Orders Only [facility] Cardiology [address] [place] [address] [place] [address], [place] [address] Hermann Kimbrough MD [address] [facility] [address] [place] [address] Sick sinus syndrome (CMS/HCC) (HCC) (Primary Dx); Atrial paroxysmal tachycardia (HCC); Complete atrioventricular block (CMS/HCC) (HCC) Social History Tobacco Use Types Packs/Day Years Used Date Smoking Tobacco: Former Pipe Smokeless Tobacco: Never Comments:smokes pipe Alcohol Use Standard Drinks/Week Comments Yes 2 (1 standard drink = 0.6 oz pur e alcohol) occassionally Sex and Gender Information Value Date Recorded Sex Assigned at Not on file 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 Gender Identity Not on file Sexual Orientation Not on file documented as of this encounter Plan of Treatment Scheduled Orders Name Type Priority Associated Diagnoses Orde r Schedule DEVICE CHECK - REMOTE Cardiac Services Routine Sick sinus syndrome (CMS/HCC) (HCC) Atrial paroxysmal tachycardia Complete atrioventricular block (CMS/HCC) (HCC) Expected: 08/08/2024, Expires: 11/26/2030 DEVICE CHECK - REMOTE Cardiac Services Routine Sick sinus syndrome (CMS/HCC) (HCC) Atrial paroxysmal tachycardia Complete atrioventricular block (CMS/HCC) (HCC) Expected: 11/07/2024, Expires: 11/26/2030 DEVICE CHECK - REMOTE Cardiac Services Routine Sick sinus syndrome (CMS/HCC) (HCC) Atrial paroxysmal tachycardia Complete atrioventricular block (CMS/HCC) (HCC) Expected: 02/06/2025, Expires: 11/26/2030 documented as of this encounter Results * DEVICE CHECK - IN OFFICE (08/14/2024 1:48 PM CDT) Anatomical Region Laterality Modality Other Narrative 08/20/2024 3:[address] [facility] Dual Pacemaker Dx; SSS, PAT. DOI 03/05/[address] Bruno. [place] remote home monitor Q3 mo, Office pacer checks Q6 mo. Battery Advisory. Supervising MD: Dr Kibmrough. Office DDD Pacemaker evaluation demonstrated appropriate device function. Left pectoral incision well healed without signs of infection noted. Battery function: ??2.86 V, 1.3 years remaining battery life to ANGIE. Appropriate lead measurements noted. Presenting rhythm- ASVP. ??Underlying rhythm- complete heart block. AP- 40 %, PROGRAMMING ENGINEER- > 99 %. 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
--- OUTSIDE RECORDS SUMMARY | 2024-11-29 05:16 | XMS_ITS | Encounter Summary ---
Author Organization [facility] Healthcare Address [address] [place] [address] Care Team Providers Care Truck Rental Service Attendant Name Role Phone Wes Alves MD Primary Care Provider [phone] Encounter Details Date Type Department Care Team (Late st Contact Info) Description 10/11/2024 Telephone [facility] Medical [facility] Cardiology [address] [place] [phone] Hermann Kimbrough MD [address] [place] [address] [id number] Social History Tobacco Use Types Packs/Day Years Used Date Smoking Tobacco: Former Pipe Smokeless Tobacco: Never Comments:smokes pipe Alcohol Use Standard Drinks/Week Comments Yes 2 (1 standard drink = 0.6 oz pur e alcohol) occassionally Sex and Gender Information Value Date Recorded Sex Assigned at Not on file Legal Sex Male 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 IOVASCULAR SPECIALIST * Telephone Encounter - Asha Burns MA - 10/11/2024 10:51 AM CARDIOVASCULAR SPECIALIST Called pt to inform him that his monitor is Dc'd. Had to LMOR , detailed message left IOVASCULAR SPECIALIST documented in this encounter Plan of Treatment Not on file documented as of this encounter Visit Diagnoses Not on filedocumented in this encounter Care Teams Truck Rental Service Attendant Relationship Specialty Start Date End Date Wes Alves MD PCP - General Family Practice 07/03/24 documented as of this encounter
--- OUTSIDE RECORDS SUMMARY | 2024-11-29 05:16 | XMS_ITS | Encounter Summary ---
Author Organization [facility] Address [address] [place] [address] Care Team Providers Care Quarter Doper Name Role Phone Rodrick Rincon MD Primary Care Provider [phone] Reason for Referral * Cardiology (Routine) - Authorized Specialty Diagnoses / Procedures Referred By Contac t Referred To Contact Cardiology Diagnoses Sick sinus syndrome (CMS/HCC) (HCC) Atrial paroxysmal tachycardia (HCC) Procedures DEVICE CHECK - IN OFFICE [facility]rough [facility] [address] [address] [address] Phone: tel: fax: [facility] Referral ID Status Reason Start Date Expiration Date V isits Requested Visits Authorized [id number] Authorized 05/09/2024 06/08/2025 1 1 Encounter Details Date Type Department Care Team (Late st Contact Info) Description 05/09/2024 Orders Only [facility] Cardiology [address] [place] [phone] Hermann Kimbrough MD [address] [place] [address] Sick sinus syndrome (CMS/HCC) (HCC) (Primary Dx); Atrial paroxysmal tachycardia (HCC) Social History Tobacco Use Types Packs/Day Years Used Date Smoking Tobacco: Former Pipe Smokeless Tobacco: Never Comments:smokes pipe Alcohol Use Standard Drinks/Week Comments Yes 2 (1 standard drink = 0.6 oz pur e alcohol) occassionally Sex and Gender Information Value Date Recorded Sex Assigned at Not on file 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 Gender Identity Not on file Sexual Orientation Not on file documented as of this encounter Plan of Treatment Scheduled Orders Name Type Priority Associated Diagnoses Orde r Schedule DEVICE CHECK - IN OFFICE Cardiac Services Routine Sick sinus syndrome (CMS/HCC) (HCC) Atrial paroxysmal tachycardia (HCC) Expected: 08/20/2025, Expires: 11/26/2031 documented as of this encounter Visit Diagnoses Diagnosis Sick sinus syndrome (CMS/HCC) (HCC)- Primary Sinoatrial node dysfunction Atrial paroxysmal tachycardia (HCC) Paroxysmal supraventricular tachycardia documented in this encounter Care Teams Quarter Doper Relationship Specialty Start Date End Date Rodrick Rincon MD [address] [place] [address] PCP - General Internal Medicine 02/06/18 07/02/24 documented as of this encounter
--- OUTSIDE RECORDS SUMMARY | 2024-11-29 05:16 | XMS_ITS | Encounter Summary ---
Author Organization [facility] Address [address] [place] [address] Care Team Providers Care Gas Mask Assembler Name Role Phone Wes Alves MD Primary Care Provider [phone] Reason for Referral * Cardiology (Routine) - Canceled Specialty Diagnoses / Procedures Referred By Ashanti soriano Referred To Contact Diagnoses Sick sinus syndrome (CMS/HCC) (HCC) Atrial paroxysmal tachycardia (HCC) Pacemaker Complete atrioventricular block (CMS/HCC) (HCC) Procedures DEVICE CHECK - IN OFFICE Hermann Kimbrough MD [address] [address] Phone: tel: fax: [facility] Referral ID Status Reason Start Date Expiration Date V isits Requested Visits Authorized [id number] Canceled 08/14/2024 09/13/2025 1 1 * Cardiology (Routine) - Canceled Specialty Diagnoses / Procedures Referred By Ashanti soriano Referred To Contact Diagnoses Sick sinus syndrome (CMS/HCC) (HCC) Atrial paroxysmal tachycardia (HCC) Pacemaker Complete atrioventricular block (CMS/HCC) (HCC) Procedures DEVICE CHECK - IN OFFICE Hermann Kimbrough MD [address] [facility] [address] [place] [address] Phone: tel: fax: [facility] Referral ID Status Reason Start Date Expiration Date V isits Requested Visits Authorized [id number] Canceled 08/14/2024 09/13/2025 1 1 * Cardiology (Routine) - Canceled Specialty Diagnoses / Procedures Referred By Contac t Referred To Contact Diagnoses Sick sinus syndrome (CMS/HCC) (HCC) Atrial paroxysmal tachycardia (HCC) Pacemaker Complete atrioventricular block (CMS/HCC) (HCC) Procedures DEVICE CHECK - IN OFFICE Hermann Kimbrough MD [address] [address] Phone: tel: fax: [facility] Referral ID Status Reason Start Date Expiration Date V isits Requested Visits Authorized [id number] Canceled 08/14/2024 09/13/2025 1 1 Encounter Details Date Type Department Care Team (Late st Contact Info) Description 08/14/2024 Orders Only [facility] Medical [facility] Cardiology [address] [phone] Hermann Kimbrough MD [address] [address] Sick sinus syndrome (CMS/HCC) (HCC) (Primary Dx); Atrial paroxysmal tachycardia (CMS/HCC) (HCC); Pacemaker; Complete atrioventricular block (CMS/HCC) (HCC) Social History Tobacco Use Types Packs/Day Years Used Date Smoking Tobacco: Former Pipe Smokeless Tobacco: Never Comments:smokes pipe Alcohol Use Standard Drinks/Week Comments Yes 2 (1 standard drink = 0.6 oz pur e alcohol) occassionally Sex and Gender Information Value Date Recorded Sex Assigned at Not on file 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 Gender Identity Not on file Sexual Orientation Not on file documented as of this encounter Plan of Treatment Scheduled Orders Name Type Priority Associated Diagnoses Orde r Schedule DEVICE CHECK - IN OFFICE Cardiac Services Routine Sick sinus syndrome (CMS/HCC) (HCC) Atrial paroxysmal tachycardia (CMS/HCC) (HCC) Pacemaker Complete atrioventricular block (CMS/HCC) (HCC) Expected: 08/14/2024, Expires: 12/04/2031 DEVICE CHECK - IN OFFICE Cardiac Services Routine Sick sinus syndrome (CMS/HCC) (HCC) Atrial paroxysmal tachycardia (CMS/HCC) (HCC) Pacemaker Complete atrioventricular block (CMS/HCC) (HCC) Expected: 08/14/2024, Expires: 12/04/2031 DEVICE CHECK - IN OFFICE Cardiac Services Routine Sick sinus syndrome (CMS/HCC) (HCC) Atrial paroxysmal tachycardia (CMS/HCC) (HCC) Pacemaker Complete atrioventricular block (CMS/HCC) (HCC) Expected: 08/14/2024, Expires: 12/04/2031 documented as of this encounter Visit Diagnoses Diagnosis Sick sinus syndrome (CMS/HCC) (HCC)- Primary Sinoatrial node dysfunction Atrial paroxysmal tachycardia (CMS/HCC) (HCC) Paroxysmal supraventricular tachycardia Pacemaker Cardiac pacemaker in situ 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
--- OUTSIDE RECORDS SUMMARY | 2024-11-29 05:16 | XMS_ITS | Clinical Summary ---
Author Organization [facility] Address [address] [place] [address] Care Team Providers Care Nuclear Logging Engineer Name Role Phone Wes Alves MD Primary Care Provider [phone] Allergies No known active allergies Medications multivitamin [...] total) by mouth daily 90 tablet 1 05/24/20 24 Active flaxseed oiL 1,000 mg capsule [...] 2023 Disconti nued(The rapy complete d) coenzyme [id number] (CO Q-10, WITH VIT E,) 100-5 mg-unit capsule 1 tablet by mouth once a day 0 0 10/27/20 14 2023 Disconti nued(The rapy complete d) aspirin-acetamino phen-caffeine (EXCEDRIN MIGRAINE) 250-250-65 mg per tablet one tablet as needed for migraine 0 0 02/11/20 15 2023 Disconti nued(The rapy complete d) [id number]-[id number]-Mn-h erb#21 (GLUCOSAMINE-MSM COMPLEX) tablet 0 0 11/02/20 [...] Systolic murmur 12/17/2021 Pacemaker 02/06/2018 Crohn's disease ([facility]) 02/17/2017 Overview (04/21/2017): Crohn's disease with other complication, unspecified gastrointestinal tract location Atrial paroxysmal tachycardia (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) 6 Overview (03/02/2017): Crohn's disease in remission [...] hypertension Dyslipidemia 11/02/2015 12/17/2021 Overview (03/02/2017): Dyslipidemia Encounters Date Type Department Care Team Description 11/22/2024 3:52 PM EAP CLINICIAN - 11/24/2024 4:21 PM EAP CLINICIAN Hospital Encounter [facility] Oncology [address] [place] [address] Radu Limon DO Ogunremi, Olumide Omolulu, MD Onaghise, Jude, MD Hematochezia (Primary Dx) Discharge Disposition: Discharge to home or self care 10/11/2024 Telephone [facility] Cardiology [address] [address] Hermann Kimbrough MD from Last 3 Months Immunizations Name Administration Dates Next Due Influenza, Trivalent, IM (MDV) 09/20/2016 Surgical History Surgery Date Site/Laterality Comments TRANSURETHRAL RESECTION OF PROSTATE SPINAL FUSION 10/27/2017 - 11/26/2017 Medical History Medical History Date Comments Hx Other Medical Crohn's disease Hx Other Medical Dyslipidemia Hx Other Medical ca prostate Hx Other Medical ? Pericarditis Hypertension Crohn's disease (CMS/HCC) (HCC) Colon polyp Pacemaker Hyperlipidemia Migraines Anemia Cancer (CMS/HCC) (HCC) prostate cancer Family History Medical History Relation Name Comments Alzheimer's disease Mother Relation Name Status Comments Father Mother Social History Tobacco Use Types Packs/Day Years [...] on file Legal Sex Male 3:29 AM EAP CLINICIAN Gender Identity Not on file Sexual Orientation Not on file Obstetrics History Last Filed Vital Signs Vital Sign Reading Time Taken Comments Blood Pressure 144/60 11/24/2024 7:27 AM EAP CLINICIAN Pulse 65 11/24/2024 7:27 AM EAP CLINICIAN Temperature 36.4 ??C (97.6 ??F) 11/24/2024 7:27 AM CS T Respiratory Rate 18 11/24/2024 7:27 AM EAP CLINICIAN Oxygen Saturation 100% 11/24/2024 7:27 AM EAP CLINICIAN Inhaled Oxygen Concentration - - Weight 75.2 kg (165 lb 12.6 oz) 11/23/2024 6:00 AM EAP CLINICIAN Height 175.3 cm (5' 9 ) 11/22/2024 3:54 PM EAP CLINICIAN Body Mass Index 24.48 11/22/2024 3:54 PM EAP CLINICIAN Plan of Treatment Health Maintenance Due Date Last Done Comments Depression Screening 1942 DTaP/Tdap/Td Vaccine (1 - Tdap) 1953 Hepatitis B Screening 1960 Zoster Vaccine (1 of 2) 1992 Well Visit 65+ 2007 Pneumococcal vaccine 65+ (2 of 2 - PPSV23 or PCV20) 11/09/2017 11/09/2016 Influenza Vaccine (#1) 2024 9, 09/06/2018, 08/28/2018, Additional history exists Fall Risk Assessment 11/24/2025 11/24/2024 Abdominal Aortic Aneurysm (A AA) Screen Completed 11/23/2024 Medical Devices Implanted Type Area Playback Operator Device Identifier Shelf Expiration Date Model / Serial / Lot 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 (Quantity not on file) Pacemaker Chest [employer] SSS ASSURITY DR Orozco / [id number] / Procedures Procedure Name Priority Date/Time Associated Diagnosis Comments XR ABDOMEN AP 1 VIEW IP Routine 11/24/2024 8:34 AM EAP CLINICIAN EGFR Routine 11/24/2024 7:21 AM EAP CLINICIAN DIFFERENTIAL AUTO Routine 11/24/2024 7:2 1 AM EAP CLINICIAN FOLATE Routine 11/24/2024 7:21 AM EAP CLINICIAN VITAMIN B12 Routine 11/24/2024 7:21 AM EAP CLINICIAN FERRITIN Routine 11/24/2024 7:21 AM EAP CLINICIAN IRON PROFILE W/ IBC Routine 11/24/2024 7 :21 AM EAP CLINICIAN CRP (ACUTE PHASE) Routine 11/24/2024 7:2 1 AM EAP CLINICIAN PROTIME-INR Routine 11/24/2024 7:21 AM EAP CLINICIAN HEPATIC FUNCTION PANEL Routine 11/24/2024 7:21 AM EAP CLINICIAN BASIC METABOLIC PANEL Routine 11/24/2024 7:21 AM EAP CLINICIAN CBC WITH AUTO DIFFERENTIAL Routine 11/24/2024 7:[address] ABDOMEN PELVIS WO CONTRAST ED Urgent/IP Urgent 11/23/2024 4:07 PM EAP CLINICIAN XR ABDOMEN AP 1 VIEW ED Urgent/IP Urgent 11/23/2024 3:18 PM EAP CLINICIAN XR ABDOMEN AP 1 VIEW ED Urgent/IP Urgent 11/23/2024 12:51 PM EAP CLINICIAN EGFR Routine 11/23/2024 2:55 AM EAP CLINICIAN DIFFERENTIAL AUTO Routine 11/23/2024 2:5 5 AM EAP CLINICIAN BASIC METABOLIC PANEL Routine 11/23/2024 2:55 AM EAP CLINICIAN CBC WITH AUTO DIFFERENTIAL Routine 11/23/2024 2:55 AM EAP CLINICIAN EGFR Routine 11/22/2024 5:41 PM EAP CLINICIAN DIFFERENTIAL AUTO Routine 11/22/2024 5:4 1 PM EAP CLINICIAN BASIC METABOLIC PANEL Routine 11/22/2024 5:41 PM EAP CLINICIAN CBC WITH AUTO DIFFERENTIAL Routine 11/22/2024 5:41 PM EAP CLINICIAN from Last 3 Months Results * XR Abdomen 1 View AP (11/24/2024 8:34 AM EAP CLINICIAN) Anatomical Region Laterality Modality Body, Abdomen N/A Computed Radiogr aphy 11/24/2024 9:10 AM EAP CLINICIAN Impressions 11/24/2024 9:10 AM EAP CLINICIAN FINDINGS/IMPRESSION: Enteric tube terminates in the distal stomach/1st portion of the duodenum region. Multiple dilated loops of small bowel suggestive of small bowel obstruction, similar to most recent prior. ??No acute fracture. Posterior fusion of L4-S1. Electronically signed by: Marko Olson II, D.O. Narrative 11/24/2024 9:10 AM EAP CLINICIAN EXAMINATION: XR ABDOMEN AP 1 VIEW DATE: [...] Electronically signed by: Marko Olson II, D.O. Kendrick Lewis MD IMG XR PROCEDURES Final Result * eGFR (11/24/2024 7:21 AM EAP CLINICIAN) eGFR 88 >=60 mL/min/1. 73 m2 Comment: [...] of Race in Diagnosing Kidney Disease, JASN 202). The CKD-EPI equation should not be used for patients with unstable renal function and has not been validated in children and those over 70. Current interpretive data was last reviewed 2021. Blood 11/24/2024 7:21 AM EAP CLINICIAN 11/24/2024 7:51 AM EAP CLINICIAN Brianne Khanna NP LAB BLOOD ORDERABLES Final Result Performing Organization Address City/State/ZIP Co ma Phone Number [facility] [address] [place] [address] [phone] * (ABNORMAL) Differential, auto (11/24/2024 7:21 AM EAP CLINICIAN) Neutrophil abs 5.9 1.5 - 6.5 K/cumm Imm gran abs 0.0 0.0 - 0.1 K/cumm [facility] Lymphocyte abs 1.0 0.8 - 3.3 K/cumm [facility] Monocyte abs 1.2(H) 0.2 - 0.8 K/cumm [facility] Eosinophil abs 0.6(H) 0.0 - 0.5 K/cumm [facility] Basophil abs 0.0 0.0 - 0.1 K/cumm [facility] Neutrophil pct 67.4 % [facility] Comment: Interpretive Data Percent cell count reference ranges are not reported, since discordance with absolute values may lead to misinterpretation of CBC data. Current Interpretive Data was last revised on 2018. Imm gran pct 0.3 % [facility] Comment: Interpretive Data [...] on 2018. Basophil pct 0.3 % [facility] Comment: Interpretive Data Percent cell count reference ranges are not reported, since discordance with absolute values may lead to misinterpretation of CBC data. Current Interpretive Data was last revised on 2018. Blood 11/24/2024 7:21 AM EAP CLINICIAN 11/24/2024 7:52 AM EAP CLINICIAN us Brianne Khanna NP LAB BLOOD ORDERABLES Final Result Performing Organization Address City/[facility]/ZIP Co de Phone Number [facility] RAY [address] [facility] [place] [place], [place] [id number] * (ABNORMAL) Iron profile w/ IBC (11/24/2024 7:21 AM EAP CLINICIAN) Iron 36(L) 50 - 150 mcg/dl TIBC 288 250 - 400 mcg/dL [facility] Transferrin saturation 13(L) 20 - 50 % [facility] Blood 11/24/2024 7:21 AM EAP CLINICIAN 11/24/2024 7:51 AM EAP CLINICIAN us Merle Gresham MD LAB BLOOD ORDERABLES Final Result Performing Organization Address [facility] Co de Phone Number [facility]RICK RAY [address] [place] [address] * (ABNORMAL) CBC with auto differential (11/24/2024 7:21 AM EAP CLINICIAN) WBC 8.7 3.8 - 9.9 K/cumm Hgb 13.7 13.0 - 17.5 g/dL [facility] Hct 43.4 38.9 - 50.3 % [facility] Plt 286 150 - 400 K/cumm [facility] MPV 10.0 9.1 - 12.3 fL [facility] RBC 4.51 4.30 - 5.80 M/cumm [facility] MCV 96.2 81.3 - 96.4 fL [facility] MCH 30.4 27.1 - 33.3 pg [facility] MCHC 31.6(L) 32.3 - 35.7 g/dL [facility] RDW CV 13.3 11.1 - 14.9 % [facility] RDW SD 47.3 35.7 - 48.1 fL [facility] NRBC abs 0.00 0.00 - 0.01 K/cumm [facility] Blood 11/24/2024 7:21 AM EAP CLINICIAN 11/24/2024 7:52 AM EAP CLINICIAN Brianne Khanna SHOP COORDINATOR LAB BLOOD ORDERABLES Final Result Performing Organization Address [facility] de Phone Number [facility]RICK RAY [address] [facility] [place] [address] * Protime-INR (11/24/2024 7:21 AM EAP CLINICIAN) PT 12.1 9.7 - 13.0 sec INR 1.12 0.90 - 1.20 CEDRICK Comment: Interpretive data Oral anticoagulant therapeutic ranges: Venous thromboembolism prophylaxis or treatment: 2.0-3.0 CARDIOLOGY Standard range: 2.0-3.0 High-intensity range: 2.5-3.5 Refer to indication-specific guidelines for appropriate target ranges for prosthetic heart valve replacement. Current interpretive data was last revised on 2019. Blood 11/24/2024 7:21 AM EAP CLINICIAN 11/24/2024 7:52 AM EAP CLINICIAN Merle Gresham MD LAB BLOOD ORDERABLES Final Result Performing Organization Address [facility] de Phone Number NIDIAGRACIE RAY [address] [facility] [place] [address] * (ABNORMAL) CRP (acute phase) (11/24/2024 7:21 AM EAP CLINICIAN) CRP 32.1(H) <=10.0 mg/L Blood 11/24/2024 7:21 AM EAP CLINICIAN 11/24/2024 7:51 AM EAP CLINICIAN Merle Gresham MD LAB BLOOD ORDERABLES Final Result Performing Organization Address [facility] de Phone Number CEDRICK [address] [address] [facility] [place] [address] * Folate (11/24/2024 7:21 AM EAP CLINICIAN) Folic acid >20.0 >=5.0 ng/mL Comment:Hemolysis present. R esults may be affected. Blood 11/24/2024 7:21 AM EAP CLINICIAN 11/24/2024 7:51 AM EAP CLINICIAN Merle Gresham MD LAB BLOOD ORDERABLES Final Result Performing Organization Address [facility] Co de Phone Number CEDRICK RAY [address] [address] [facility] [place] [address] * Ferritin (11/24/2024 7:21 AM EAP CLINICIAN) Pathologist [facility] Ferritin 95 30 - 400 ng/mL Blood 11/24/2024 7:21 AM EAP CLINICIAN 11/24/2024 7:51 AM EAP CLINICIAN Merle Gresham MD LAB BLOOD ORDERABLES Final Result Performing Organization Address [facility] Phone Number CEDRICK RAY [address] [address] [facility] [place] [address] * (ABNORMAL) Vitamin B12 (11/24/2024 7:21 AM EAP CLINICIAN) Pathologist [facility] Vitamin B12 >4,000(H) 230 - 1,250 pg/mL Blood 11/24/2024 7:21 AM EAP CLINICIAN 11/24/2024 7:51 AM EAP CLINICIAN Merle Gresham MD LAB BLOOD ORDERABLES Final Result Performing Organization Address [facility] Co de Phone Number CEDRICK RAY [address] [address] [facility] [place] [address] * Hepatic function panel (11/24/2024 7:21 AM EAP CLINICIAN) Bilirubin, total 0.4 0.1 - 1.2 mg/dL Bilirubin, direct 0.1 0.1 - 0.3 mg/dL [facility] Protein, pl 6.8 6.5 - 8.5 g/dL [facility] Albumin 3.5 3.5 - 5.0 g/dL [facility] Alk phos 116 40 - 130 Units/L [facility] ALT 22 7 - 55 Units/L [facility] AST 29 10 - 50 Units/L [facility] Blood 11/24/2024 7:21 AM EAP CLINICIAN 11/24/2024 7:51 AM EAP CLINICIAN us Merle Gresham MD LAB BLOOD ORDERABLES Final Result [facility] [address] [place] [address] * Basic metabolic panel (11/24/2024 7:21 AM EAP CLINICIAN) Pathologist [facility] Sodium 137 135 - 145 mmol/L Potassium, pl 3.4 3.3 - 4.9 mmol/L [facility] Chloride 101 97 - 110 mmol/L [facility] CO2 24 22 - 32 mmol/L [facility] Anion gap 12 2 - 15 mmol/L [facility] BUN 9 6 - 25 mg/dL [facility] Creatinine 0.80 0.80 - 1.30 mg/dL [facility] Glucose 102 70 - 199 mg/dL [facility] Comment: Interpretive Data Fasting glucose >/= 126 [...] 2022. Calcium 8.9 8.5 - 10.3 mg/dL [facility] Blood 11/24/2024 7:21 AM EAP CLINICIAN 11/24/2024 7:51 AM EAP CLINICIAN Brianne Khanna NP LAB BLOOD ORDERABLES Final Result [facility] [address] [place] [address] * CT Abdomen Pelvis WO Contrast (11/23/2024 4:07 PM EAP CLINICIAN) Anatomical Region Laterality Modality Body N/A Computed Tomogra phy 11/23/2024 4:02 PM EAP CLINICIAN Impressions 11/24/2024 5:49 AM EAP CLINICIAN Circumferential rectal thickening, which can be seen with proctitis. Mild stranding along the descending colon could represent colitis. No evidence of bowel obstruction. Preliminary results were provided by the tele-radiologist at 6:02 PM on 11/23/2024. Electronically signed by: Jose Arevalo M.D. Narrative 11/24/2024 5:49 AM EAP CLINICIAN EXAMINATION: ??Computed tomography of the abdomen and [...] Abdomen 1 View AP (11/23/2024 3:18 PM EAP CLINICIAN) Anatomical Region Laterality Modality Body, Abdomen N/A Computed Radiogr aphy 11/23/2024 3:38 PM EAP CLINICIAN Impressions 11/23/2024 3:38 PM EAP CLINICIAN Findings as described above. Electronically signed by: Valentino Soto M.D. Narrative 11/23/2024 3:38 PM EAP CLINICIAN EXAMINATION: XR ABDOMEN AP 1 VIEW HISTORY: [...] Abdomen 1 View AP (11/23/2024 12:51 PM EAP CLINICIAN) Anatomical Region Laterality Modality Body, Abdomen N/A Computed Radiogr aphy 11/23/2024 1:04 PM EAP CLINICIAN Impressions 11/23/2024 1:04 PM EAP CLINICIAN FINDINGS/IMPRESSION: Multiple dilated loops of small bowel throughout the central abdomen suggestive of small bowel obstruction. ??Gaseous distention of the colon is also present. ??Ileus considered in the differential diagnosis. ??Moderate stool burden. 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 ??No acute fracture. Electronically signed by: Marko Olson II, D.O. Narrative 11/23/2024 1:04 PM EAP CLINICIAN EXAMINATION: XR ABDOMEN AP 1 VIEW DATE: [...] Final Result * eGFR (11/23/2024 2:55 AM EAP CLINICIAN) eGFR 88 >=60 mL/min/1. 73 m2 Comment: [...] last reviewed 2021. Blood 11/23/2024 2:55 AM EAP CLINICIAN 11/23/2024 3:23 AM EAP CLINICIAN Brianne Khanna NP LAB BLOOD ORDERABLES Final Result [facility] [address] [place] [address] * (ABNORMAL) Differential, auto (11/23/2024 2:55 AM EAP CLINICIAN) Neutrophil abs 7.1(H) 1.5 - 6.5 K/cumm Imm gran abs 0.1 0.0 - 0.1 K/cumm [facility] Lymphocyte abs 1.2 0.8 - 3.3 K/cumm [facility] Monocyte abs 1.2(H) 0.2 - 0.8 K/cumm [facility] Eosinophil abs 0.7(H) 0.0 - 0.5 K/cumm [facility] Basophil abs 0.0 0.0 - 0.1 K/cumm [facility] Neutrophil pct 68.8 % [facility] Comment: Interpretive Data Percent cell count reference ranges are not reported, since discordance with absolute values may lead to misinterpretation of CBC data. Current Interpretive Data was last revised on 2018. Imm gran pct 0.7 % [facility] Comment: Interpretive Data Percent cell count reference ranges are not reported, since discordance with absolute values may lead to misinterpretation of CBC data. Current Interpretive Data was last revised on 2018. Lymphocyte pct 11.4 % [facility] Comment: Interpretive Data Percent cell count reference ranges are not reported, since discordance with absolute values may lead to misinterpretation of CBC data. Current Interpretive Data was last revised on 2018. Monocyte pct 12.0 % [facility] Comment: Interpretive Data Percent cell count reference ranges are not reported, since discordance with absolute values may lead to misinterpretation of CBC data. Current Interpretive Data was last revised on 2018. Eosinophil pct 6.9 % [facility] Comment: Interpretive Data Percent cell count reference ranges are not reported, since discordance with absolute values may lead to misinterpretation of CBC data. Current Interpretive Data was last revised on 2018. Basophil pct 0.2 % [facility] Comment: Interpretive Data Percent cell count reference ranges are not reported, since discordance with absolute values may lead to misinterpretation of CBC data. Current Interpretive Data was last revised on 2018. Blood 11/23/2024 2:55 AM EAP CLINICIAN 11/23/2024 3:23 AM EAP CLINICIAN us Brianne Khanna NP LAB BLOOD ORDERABLES Final Result [facility] [address] [place] [address] * (ABNORMAL) CBC with auto differential (11/23/2024 2:55 AM EAP CLINICIAN) Pathologist [facility] WBC 10.3(H) 3.8 - 9.9 K/cumm Hgb 12.0(L) 13.0 - 17.5 g/dL [facility] Hct 37.8(L) 38.9 - 50.3 % [facility] Plt 311 150 - 400 K/cumm [facility] MPV 9.8 9.1 - 12.3 fL [facility] RBC 3.98(L) 4.30 - 5.80 M/cumm [facility] MCV 95.0 81.3 - 96.4 fL [facility] MCH 30.2 27.1 - 33.3 pg [facility] MCHC 31.7(L) 32.3 - 35.7 g/dL [facility] RDW CV 13.2 11.1 - 14.9 % [facility] RDW SD 46.0 35.7 - 48.1 fL [facility] NRBC abs 0.00 0.00 - 0.01 K/cumm [facility] Blood 11/23/2024 2:55 AM EAP CLINICIAN 11/23/2024 3:23 AM EAP CLINICIAN Brianne Khanna NP LAB BLOOD ORDERABLES Final Result [facility] [address] [place] [address] * Basic metabolic panel (11/23/2024 2:55 AM EAP CLINICIAN) Pathologist [facility] Sodium 139 135 - 145 mmol/L Potassium, pl 3.9 3.3 - 4.9 mmol/L [facility] Chloride 103 97 - 110 mmol/L [facility] CO2 24 22 - 32 mmol/L [facility] Anion gap 12 2 - 15 mmol/L [facility] BUN 14 6 - 25 mg/dL [facility] Creatinine 0.81 0.80 - 1.30 mg/dL [facility] Glucose 95 70 - 199 mg/dL [facility] Comment: Interpretive Data Fasting glucose >/= 126 [...] 8.5 - 10.3 mg/dL [facility] Blood 11/23/2024 2:55 AM EAP CLINICIAN 11/23/2024 3:23 AM EAP CLINICIAN us Brianne Khanna NP LAB BLOOD ORDERABLES Final Result [facility] [address] [address] [place] [address] * eGFR (11/22/2024 5:41 PM EAP CLINICIAN) eGFR >90 >=60 mL/min/1. 73 m2 Comment: [...] Inclusion of Race in Diagnosing Kidney Disease, SIRIASN 2020). The CKD-EPI equation should not be used for patients with unstable renal function and has not been validated in children and those over 70. Current interpretive data was last reviewed 2021. Blood 11/22/2024 5:41 PM EAP CLINICIAN 11/22/2024 5:50 PM EAP CLINICIAN Brianne Khanna NP LAB BLOOD ORDERABLES Final Result [facility] [address] [place] [address] * (ABNORMAL) Differential, auto (11/22/2024 5:41 PM EAP CLINICIAN) Neutrophil abs 7.8(H) 1.5 - 6.5 K/cumm Imm gran abs 0.1 0.0 - 0.1 K/cumm [facility] Lymphocyte abs 1.0 0.8 - 3.3 K/cumm [facility] Monocyte abs 1.2(H) 0.2 - 0.8 K/cumm [facility] Eosinophil abs 0.7(H) 0.0 - 0.5 K/cumm [facility] Basophil abs 0.0 0.0 - 0.1 K/cumm [facility] Neutrophil pct 72.0 % [facility] Comment: Interpretive Data Percent cell count reference ranges are not reported, since discordance with absolute values may lead to misinterpretation of CBC data. Current Interpretive Data was last revised on 2018. Imm gran pct 0.6 % [facility] Comment: Interpretive Data Percent cell count reference ranges are not reported, since discordance with absolute values may lead to misinterpretation of CBC data. Current Interpretive Data was last revised on 2018. Lymphocyte pct 9.3 % [facility] Comment: Interpretive Data Percent cell count reference ranges are not reported, since discordance with absolute values may lead to misinterpretation of CBC data. Current Interpretive Data was last revised on 2018. Monocyte pct 10.8 % [facility] Comment: Interpretive Data Percent cell count reference ranges are not reported, since discordance with absolute values may lead to misinterpretation of CBC data. Current Interpretive Data was last revised on 2018. Eosinophil pct 6.9 % [facility] Comment: Interpretive Data Percent cell count reference ranges are not reported, since discordance with absolute values may lead to misinterpretation of CBC data. Current Interpretive Data was last revised on 2018. Basophil pct 0.4 % [facility] Comment: Interpretive Data Percent cell count reference ranges are not reported, since discordance with absolute values may lead to misinterpretation of CBC data. Current Interpretive Data was last revised on 2018. Blood 11/22/2024 5:41 PM EAP CLINICIAN 11/22/2024 5:50 PM EAP CLINICIAN us Brianne Khanna NP LAB BLOOD ORDERABLES Final Result [facility] [address] [place] [address] * (ABNORMAL) CBC with auto differential (11/22/2024 5:41 PM EAP CLINICIAN) WBC 10.8(H) 3.8 - 9.9 K/cumm Hgb 13.2 13.0 - 17.5 g/dL [facility] Hct 41.2 38.9 - 50.3 % [facility] Plt 364 150 - 400 K/cumm [facility] MPV 9.6 9.1 - 12.3 fL [facility] RBC 4.36 4.30 - 5.80 M/cumm [facility] MCV 94.5 81.3 - 96.4 fL [facility] MCH 30.3 27.1 - 33.3 pg [facility] MCHC 32.0(L) 32.3 - 35.7 g/dL [facility] RDW CV 13.2 11.1 - 14.9 % [facility] RDW SD 46.1 35.7 - 48.1 fL [facility] NRBC abs 0.00 0.00 - 0.01 K/cumm [facility] Blood 11/22/2024 5:41 PM EAP CLINICIAN 11/22/2024 5:50 PM EAP CLINICIAN Brianneenedina Khanna SHOP COORDINATOR LAB BLOOD ORDERABLES Final Result [facility] [address] Department [employer] [place] [address] * (ABNORMAL) Basic metabolic panel (11/22/2024 5:41 PM EAP CLINICIAN) Sodium 138 135 - 145 mmol/L Potassium, pl 4.2 3.3 - 4.9 mmol/L [facility] Chloride 101 97 - 110 mmol/L [facility] CO2 23 22 - 32 mmol/L [facility] Anion gap 14 2 - 15 mmol/L [facility] BUN 11 6 - 25 mg/dL [facility] Creatinine 0.71(L) 0.80 - 1.30 mg/dL [facility] Glucose 104 70 - 199 mg/dL [facility] Comment: Interpretive Data Fasting glucose [...] 2022. Calcium 9.2 8.5 - 10.3 mg/dL [facility] Blood 11/22/2024 5:4 1 PM EAP CLINICIAN 11/22/2024 5:50 PM EAP CLINICIAN Brianne Rachel Khanna SHOP COORDINATOR LAB BLOOD ORDERABLES Final Result Performing Organization Address City/[facility]/ZIP Co de Phone Number [place] [address] [address] [place] [address] from Last 3 Months Insurance MEDICARE SOLUTIONS [facility] MEDICARE [employer] MEDICARE Advance Directives For more information, please contact: [phone] * Full Code (Latest Code Status on File) Date Activated Date Inactivated Comments 11/22/2024 4:29 PM 11/24/2024 8:21 PM Care Teams Nuclear Logging Engineer Relationship Specialty Start Date End Date Wes Alves MD PCP - General Family Practice 07/03/24
--- OUTSIDE RECORDS SUMMARY | 2024-11-29 05:16 | XMS_ITS | Encounter Summary ---
Author Organization [facility] Healthcare Address [address] [place] [address] Care Team Providers Care Sheriff Name Role Phone Wes Alves MD Primary Care Provider [phone] Reason for Visit * Reason Comments PAT Heart Murmur AVB 6 mo f/u Encounter Details Date Type Department Care Team (Late st Contact Info) Description 07/17/2024 2:00 PM CDT Office Visit [facility] Medical [facility] Cardiology [address] [facility] [address] [place] [address] Hermann Kimbrough MD [address] [address] Sick sinus syndrome (CMS/HCC) (HCC) (Primary Dx); Pacemaker; Moderate aortic stenosis; Primary hypertension Social History Tobacco Use Types Packs/Day Years Used Date Smoking Tobacco: Former Pipe Smokeless Tobacco: Never Comments:smokes pipe Alcohol Use Standard Drinks/Week Comments Yes 2 (1 standard drink = 0.6 oz pur e alcohol) occassionally Sex and Gender Information Value Date Recorded Sex Assigned at Not on file 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 Gender Identity Not on file Sexual Orientation Not on file documented as of this encounter Last Filed Vital Signs Vital Sign Reading Time Taken Comments Blood Pressure 130/66 07/17/2024 2:11 PM CDT Pulse 74 07/17/2024 2:11 PM CDT Temperature - - Respiratory Rate - - Oxygen Saturation 95% 07/17/2024 2:11 PM CDT Inhaled Oxygen Concentration - - Weight 73 kg (161 lb) 07/17/2024 2:11 PM CDT Height 175.3 cm (5' 9 ) 07/17/2024 2:11 PM CDT Body Mass Index 23.78 07/17/2024 2:11 PM CDT documented in this encounter Progress Notes * Hermann Kimbrough MD - 07/17/2024 2:00 PM CDT [facility] CARDIOLOGY 07/17/2024 CHIEF COMPLAINT Chief Complaint Patient presents with PAT Heart Murmur AVB 6 mo f/u HPI Dinesh Saha is a 84 y.o. male with hypertension, aortic stenosis, sick sinus syndrome status post [employer] dual-chamber pacemaker placement on 03/05/2015. 07/17/2024 initial evaluation-patient is here to reestablish cardiovascular care. He is former patient of Dr. Olea. He denies major cardiovascular symptoms. No significant shortness of breath for his level activity.He has sporadic dizziness without syncope no chest pain. He reports generalized fatigue occasionally. Compliant with current medical regimen. Monitors blood pressure closely at home home blood pressure usually in 110s to 130s systolic. MEDICAL HISTORY he has a past medical history of Anemia, Cancer (CMS/HCC) (HCC), Colon polyp, Crohn's disease (CMS/HCC) (HCC), OTHER MEDICAL, OTHER MEDICAL, OTHER MEDICAL, OTHER MEDICAL, Hyperlipidemia, Hypertension, Migraines, and Pacemaker. he has a past surgical history that includes Transurethral resection of prostate and Spinal fusion (10/2017). he No Known Allergies Current Outpatient Medications Medication Sig Dispense Refill acetaminophen (PAIN RELIEVER) 500 mg capsule take 2 capsule by oral route every 6 hours as needed 00 amLODIPine (NORVASC) 5 mg tablet Take 1 tablet (5 mg total) by mouth daily 90 tablet 3 aspirin 81 mg enteric coated tablet Take 1 tablet (81 mg total) by mouth daily atorvastatin (LIPITOR) 20 mg tablet take 1 tablet by oral route every day 0 0 B6/folic/B12/coffee/phosphatid (NEURIVA PLUS BRAIN PERFORMANCE ORAL) Take by mouth biotin 5,000 mcg tablet,disintegrating 5,000 mcg. 0 0 calcium carbonate-vitamin D3 (CALCIUM 500 + D) 500 mg(1,250mg) -400 unit tablet (Patient taking differently: Take by mouth 2 (two) times a day) 0 0 cholecalciferol (VITAMIN D3) 2,000 unit tablet take 1 by Oral route every day 0 0 clonazePAM (KlonoPIN) 0.5 mg tablet take 1 tablet by oral route every day (Patient taking differently: Take 0.5 tablets (0.25 mg total) by mouth as needed) 0 0 coenzyme L56-qskklzi E (CO Q-10, WITH VIT E,) 100-5 mg-unit capsule 1 tablet by mouth once a day 0 0 docusate sodium (DOK) 100 mg capsule Take 1 tablet (100 mg total) by mouth 2 (two) times a day as needed for constipation folic acid (FOLVITE) 400 mcg tablet Take 1 tablet (400 mcg total) by mouth daily nesmpr-qxk-K-Mn-herb#21 (GLUCOSAMINE-MSM COMPLEX) tablet 0 0 hydroCHLOROthiazide (HYDRODIURIL) 25 mg tablet Take 1 tablet (25 mg total) by mouth daily 90 tablet1 iron bisgly,ps-FA-B-C#12-succ (IROSPAN 24/6) 65 mg-65 mg -1,000 mcg (24) tablet 0 0 lisinopriL (PRINIVIL,ZESTRIL) 40 mg tablet TAKE 1 TABLET(40 MG) BY MOUTH DAILY 90 tablet 1 meclizine (ANTIVERT) 25 mg tablet take 1 tablet by oral route 3 times every day as needed 0 0 melatonin 5 mg tablet 5 mg. 0 0 multivitamin tablet tablet take 1 tablet by oral route every day with food 0 0 omega-3 fatty acids-vitamin E (FISH OIL) 1,000 mg capsule take 1 by Oral route once 0 0 ondansetron ODT (ZOFRAN-ODT) 4 mg disintegrating tablet Take 1 tablet (4 mg total) by mouth every 8(eight) hours as needed for nausea or vomiting traZODone (DESYREL) 50 mg tablet TAKE ONE-HALF TABLET BY MOUTH EVERY DAY AT BEDTIME NEEDED FOR INSOMNIA ustekinumab (STELARA) injection Inject 1 mL (90 mg total) under the skin Inject subq every 8 weeks vitamin b complex tablet Take 5,000 tablets by mouth daily white petrolatum-mineral oil (eucerin) cream 0 0 pomrjnc-jfnezcixzkvjj-djxtkfkt (EXCEDRIN MIGRAINE) 250-250-65 mg per tablet one tablet as needed for migraine (Patient not taking: Reported on 07/17/2024) 0 0 No current facility-administered medications for this visit. he family history includes Alzheimer's disease in his mother. he reports that he has quit smoking. His smoking use included pipe. He has never used smokeless tobacco. He reports that he does not use drugs. No alcohol history on file. Denies tobacco, occasional alcohol, no illicit drugs. 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 Lives with his REVIEW OF SYSTEMS General ROS: Positive for fatigue Psychological ROS: negative for - anxiety, depression Ophthalmic ROS: negative for - loss of vision ENT ROS: negative for - sore throat, epistaxis, headaches, nasal congestion Allergy and Immunology ROS: negative for - hives, postnasal drip Hematological and Lymphatic ROS: negative for - overt bleeding problems, bruising Respiratory ROS: negative for - cough, hemoptysis, wheezing Cardiovascular ROS: negative for - chest pain Gastrointestinal ROS: negative for - abdominal pain Endocrine ROS: negative for - hot flashes, polydipsia/polyuria Musculoskeletal ROS: Positive for joint pain Neurological ROS: negative for - weakness Dermatological ROS: negative for pruritus, rash LABS AND OTHER DIAGNOSTIC TESTS REVIEWED Lab Results Component Value Date HGB 11.3 (L) 09/28/2016 HCT 34.3 (L) 09/28/2016 MCV 90.3 09/28/2016 No lab exists for component: LABALBU Lab Results Component Value Date HGB 11.3 (L) 09/28/2016 HCT 34.3 (L) 09/28/2016 MCV 90.3 09/28/2016 No results found for: CHOL No results found for: HDL No results found for: LDL ] No results found for: TRIG Lab Results Component Value Date POCCHOL 203 01/10/2024 POCHDL 89 01/10/2024 POCTRIG 92 01/10/2024 POCLDL 96 01/10/2024 POCNONHDL 114 01/10/2024 POCCHLPL 203 01/10/2024 Lipids-total cholesterol 203, HDL 89, triglycerides 92, LDL 96. 01/10/2024 PPM- Battery status-2.87V, 1.4 years remaining to ANGIE. Stable lead impedances, pacing and sensing thresholds. Presenting rhythm: AP-PROJECT CONSULTANT. AP-43 %, PROJECT CONSULTANT->99 %. No AT/AF episodes recorded. 07/11/2024 Echo-Normal left ventricular size. Moderate left ventricular hypertrophy. Normal global left ventricular systolic function. Impaired diastolic relaxation Grade I. Ejection fraction about 65-70%. Global Longitudinal Strain is -13 %. Normal RV size and systolic function. Pacemaker noted in RA/RV. Mild left atrial enlargement. Mitral valve leaflets appear mildly thickened. Mild mitral annular calcification. Trivial regurgitation of the mitral valve. Aortic valve not well visualized, appears calcified. Mild to moderate aortic stenosis by GARDENIA. V max2.70 m/s. Mean gradient 16 mmHg. Valve area of 1.5 cm2. Right ventricular systolic pressure could not be estimated due to inadequate visualization of the tricuspid regurgitation jet. 07/03/2024 PHYSICAL EXAM Vitals BP 130/66 (BP Location: Left arm, Patient Position: Sitting) Pulse 74 Ht 175.3 cm (5' 9 ) Wt 73 kg (161 lb) SpO2 95% BMI 23.78 kg/m?? General appearance - alert, no distress, oriented to time, place, person Mental status - anxious Eyes - extraocular eye movements intact, no pallor Ears - external ears appear normal, hearing grossly normal Nose - normal and patent, no discharge Mouth - mucous membranes moist, tongue normal Neck - supple, no JVD Chest - clear to auscultation Heart - normal rate, regular rhythm, normal S1, S2, systolic murmur left sternal border and base with radiation to carotids Abdomen - soft, nontender Neurological - alert, oriented, normal speech, no gross motor deficits Musculoskeletal - no major deformity, no amputations Extremities - no pedal edema, no clubbing or cyanosis Skin - no rashes (on the exposed areas), no cyanosis ASSESSMENT Diagnoses and all orders for this visit: Sick sinus syndrome (CMS/HCC) ([facility]) (Primary) Pacemaker Moderate aortic stenosis Primary hypertension PLAN/RECOMMENDATIONS 84 y.o. male hypertension, aortic stenosis, sick sinus syndrome status post [employer] dual-chamberpacemaker placement on 03/05/2015. -patient has moderate aortic stenosis based on recent echocardiogram. Will continue periodic surveillance echocardiogram for progression of aortic stenosis. Next echo with Doppler to be ordered on follow-up visit in about 1 year, or sooner if necessary. -history of sick sinus syndrome, status post permanent pacemaker placement. Underlying complete heart block. Recent pacemaker interrogation reviewed. Continue periodic interrogations. -blood pressure is well controlled with current antihypertensives including labeled, amlodipine, HCTZ. Patient monitors blood pressure at home. Low-salt diet. -personally reviewed patient's previous medical records including cardiology notes, echo etc. -heart healthy/low-salt diet, aerobic exercise, fall precautions. -follow up in about 12 months or sooner if necessary Hermann Kimbrough MD 07/17/24 Voice recognition software was used to complete this document, therefore, costume maker variances may occur. documented in this encounter Plan of Treatment Not on file documented as of this encounter Visit Diagnoses Diagnosis Sick sinus syndrome (CMS/HCC) (HCC)- Primary Sinoatrial node dysfunction Pacemaker Cardiac pacemaker in situ Moderate aortic stenosis Aortic valve disorders Primary hypertension Unspecified essential hypertension documented in this encounter Care Teams Sheriff Relationship Specialty Start Date End Date Wes Alves MD PCP - General Family Practice 07/03/24 documented as of this encounter
--- OUTSIDE RECORDS SUMMARY | 2024-11-29 05:16 | XMS_ITS | Encounter Summary ---
Author Organization [facility] Address [address] [place] [address] Care Team Providers Care Bacteriologist Pharmaceutical Name Role Phone Wes Alves MD Primary Care Provider [phone] Reason for Visit * Cardiology (Routine) - Closed Specialty Diagnoses / Procedures Referred By Contac t Referred To Contact Diagnoses Benign hypertension Atrial paroxysmal tachycardia (HCC) Complete atrioventricular block (CMS/HCC) (HCC) Pacemaker lead malfunction, subsequent encounter Systolic murmur Procedures Transthoracic Echo (TTE) Complete W Doppler/CF Wilian Olea MD Phone: tel: fax: [facility] Medical Group Referral ID Status Reason Start Date Expiration Date Visits Re quested Visits Authorized [id number] Closed 01/10/2024 02/08/2025 1 1 Encounter Details Date Type Department Care Team (Latest Contact Info) Description 07/03/2024 1:00 PM CDT Ancillary Procedure [facility] Medical Group Cardiology [address] [place] [address] Benign hypertension; Atrial paroxysmal tachycardia (CMS/HCC) (HCC); Complete atrioventricular block (CMS/HCC) (HCC); Pacemaker lead malfunction, subsequent encounter; Systolic murmur Social History Tobacco Use Types Packs/Day Years Used Date Smoking Tobacco: Former Pipe Smokeless Tobacco: Never Comments:smokes pipe Alcohol Use Standard Drinks/Week Comments Yes 2 (1 standard drink = 0.6 oz pur e alcohol) occassionally Sex and Gender Information Value Date Recorded Sex Assigned at Not on file 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 Gender Identity Not on file Sexual Orientation Not on file documented as of this encounter Last Filed Vital Signs Vital Sign Reading Time Taken Comments Blood Pressure 145/90 07/03/2024 1:52 PM CDT Pulse - - Temperature - - Respiratory Rate - - Oxygen Saturation - - Inhaled Oxygen Concentration - - Weight - - Height - - Body Mass Index - - documented in this encounter Plan of Treatment Not on file documented as of this encounter Procedures Procedure Name Priority Date/Time Associated Diagnosis Comments TRANSTHORACIC ECHO (TTE) COMPLETE W DOPPLER/CF WO CONTRAST Routine 07/03/2024 1:53 PM CDT Benign hypertension Atrial paroxysmal tachycardia (CMS/HCC) (HCC) Complete atrioventricular block (CMS/HCC) (HCC) Pacemaker lead malfunction, subsequent encounter Systolic murmur documented in this encounter Results * TRANSTHORACIC ECHO (TTE) COMPLETE W DOPPLER/CF WO CONTRAST (07/03/2024 1:53 PM CDT) Anatomical Region Laterality Modality Ultrasound 07/03/2024 1:31 PM CDT Narrative 07/03/2024 2:[address] [facility] Medical Group Cardiology [address] [facility] [address] [address] [address] [address] P:[phone] P:[phone] Echocardiographic Report Patient Name: WANDER FIERRO A : 1940 Study Date: 07/03/2024 1:31:32 PM Gender: M Tech: Location: [facility] Provider: WILIAN OLEA ?Height(Cm): 175 BSA: 1.91 Weight(Kg): 75.3 Heart Rate: 81 BP: 145 / 90 Quality: Good Order Provider: WILIAN OLEA PROCEDURES: Echocardiographic Report: Transthoracic echocardiogram with complete 2D, M-Mode, and color Doppler examination. With Strain Analysis. INDICATIONS: Hypertension, Murmur, I10 Essential (primary) hypertension, I47.19 Other supraventricular tachycardia, I44.2 Atrioventricular block, complete, T82.110D Breakdown (mechanical) of cardiac electrode, subsequent encounter, and R01.1 Cardiac murmur, unspecified. Measurements: 2D/M Mode ?Doppler Measurement ?Value ?Normal Range ?Measurement ?Value ?Normal Range LVIDd 2D ? 4.16 ? [ 4.20 - 5.80 ] cm ?GARDENIA Vmax ? 1.47 ? [ 2.00 - 4.00 ] cm2 LVIDs 2D ? 2.74 ? [ 2.50 - 4.00 ] cm ?AV Mean PG ? 16 ? mmHg LVPWd 2D ? 1.53 ? [ 0.60 - 1.00 ] cm ?AV Peak Nick ?2.69 ? [ 1.00 - 1.70 ] m/s IVSd 2D ?1.47 ? [ 0.60 - 1.00 ] cm ?AV Peak PG ? 29 ? mmHg LA Volume Index ?37 ? [ 16 - 34 ] cc/m2 ? AV VTI ? 57.30 ?cm LVOT Diam ?2.04 ?[ 1.70 - 2.10 ] cm LVOT Peak Nick ?1.21 ?[ 0.70 - 1.10 ] m/s LVOT VTI ? 25.72 ? cm MV E Peak Nick ?0.80 ?[ 0.60 - 1.30 ] m/s MV A Peak Nick ?1.21 ?[ 1.00 - 1.20 ] m/s MV Decel Time ?116 ? [ 104 - 258 ] msec Lateral E` ? 0.07 ?[ 0.10 - 0.15 ] m/s E` ? 0.06 ?m/s E/E` ? 11 Measurement ?Value ?Normal Range ?Measurement ?Value ?Normal Range 2D/M Mode ?Doppler - FINDINGS: Interpretation Site: Exam was interpreted at [facility]. Left Ventricle: Normal left ventricular size. Moderate concentric left ventricular hypertrophy. Normal global left ventricular systolic function. Impaired diastolic relaxation Grade I. Ejection fraction is visually estimated at 65-70 %. Global Longitudinal Strain is -13 %. Right Ventricle: Normal right ventricular size. Normal right ventricular systolic function. Pacemaker noted. Left Atrium: There is mild enlargement of left atrium. Right Atrium: The right atrium is normal in size. Linear artifact in right atrium suggestive of catheter(s), pacemaker lead(s), or ICD lead(s). Atrial Septum: Normal atrial septum. Mitral Valve: Mitral valve leaflets appear mildly thickened. Mild mitral annular calcification. Trivial regurgitation of the mitral valve. Aortic Valve: Aortic valve not well visualized. Mild to moderate aortic stenosis. Peak Velocity of 2.70 m/s. Mean gradient of 16.0 mmHg. Valve area of 1.5 cm2. Tricuspid Valve: Normal appearance of the tricuspid valve. Right ventricular systolic pressure could not be estimated due to inadequate visualization of the tricuspid regurgitation jet. Pulmonic Valve: Normal appearance of the pulmonic valve. Trivial regurgitation in the pulmonic valve. Pericardium: Normal pericardium with no significant pericardial effusion. Aorta: Aortic root not well visualized. IVC: Normal size and normal respiratory collapse consistent with normal right atrial pressure (<5 mmHg). CONCLUSIONS: Normal left ventricular size. Moderate left ventricular hypertrophy. Normal global left ventricular systolic function. Impaired diastolic relaxation Grade I. Ejection fraction about 65-70 %. Global Longitudinal Strain is -13 %. Normal RV size and systolic function. Pacemaker noted in RA/RV. Mild left atrial enlargement. Mitral valve leaflets appear mildly thickened. Mild mitral annular calcification. Trivial regurgitation of the mitral valve. Aortic valve not well visualized, appears calcified. Mild to moderate aortic stenosis by GARDENIA. V max 2.70 m/s. Mean gradient 16 mmHg. Valve area of 1.5 cm2. Right ventricular systolic pressure could not be estimated due to inadequate visualization of the tricuspid regurgitation jet. Electronically Signed By: Hermann Kimbrough MD, [facility] 2024-07-03 14:58:14 CDT Procedure Note Hermann Kimbrough MD - 07/03/2024 [facility] Medical Group Cardiology [address] [facility] [address] [place] [address] [address] [facility] [id number], [place] [address] P:[phone] P:[phone] Echocardiographic Report Patient Name: WANDER FIERRO A : 1940 Study Date: 07/03/2024 1:31:32 PM Gender: M Tech: Location: [place] Ref Provider: WILIAN OLEA Height(Cm): 175 BSA: 1.91 Weight(Kg): 75.3 Heart Rate: 81 BP: 145 / 90 Quality: Good Order Provider: WILIAN OLEA PROCEDURES: Echocardiographic Report: Transthoracic echocardiogram with complete 2D, M-Mode, and color Dopplerexamination. With Strain Analysis. INDICATIONS: Hypertension, Murmur, I10 Essential (primary) hypertension, I47.19 Othersupraventricular tachycardia, I44.2 Atrioventricular block, complete, T82.110D Breakdown(mechanical) of cardiac electrode, subsequent encounter, and R01.1 Cardiac murmur,unspecified. Measurements: 2D/M ModeDoppler Measurement Value Normal Range MeasurementValue Normal Range LVIDd 2D 4.16 [ 4.20 - 5.80 ] cm GARDENIA Vmax1.47 [ 2.00 - 4.00 ] cm2 LVIDs 2D 2.74 [ 2.50 - 4.00 ] cm AV Mean PG16 mmHg LVPWd 2D 1.53 [ 0.60 - 1.00 ] cm AV Peak Vel2.69 [ 1.00 - 1.70 ] m/s IVSd 2D 1.47 [ 0.60 - 1.00 ] cm AV Peak PG29 mmHg LA Volume Index 37 [ 16 - 34 ] cc/m2 AV VTI57.30 cm LVOT Diam 2.04 [ 1.70 - 2.10 ] cm LVOT Peak Nick 1.21 [ 0.70 - 1.10 ] m/s LVOT VTI 25.72 cm MV E Peak Nick 0.80 [ 0.60 - 1.30 ] m/s MV A Peak Nick 1.21 [ 1.00 - 1.20 ] m/s MV Decel Time 116 [ 104 - 258 ] msec Lateral E` 0.07 [ 0.10 - 0.15 ] m/s E` 0.06 m/s E/E` 11 Measurement Value Normal Range MeasurementValue Normal Range 2D/M ModeDoppler - FINDINGS: Interpretation Site: Exam was interpreted at [facility]. Left Ventricle: Normal left ventricular size. Moderate concentric left ventricularhypertrophy. Normal global left ventricular systolic function. Impaired diastolic relaxationGrade I. Ejection fraction is visually estimated at 65-70 %. Global LongitudinalStrain is -13 %. Right Ventricle: Normal right ventricular size. Normal right ventricular systolic function.Pacemaker noted. Left Atrium: There is mild enlargement of left atrium. Right Atrium: The right atrium is normal in size. Linear artifact in right atriumsuggestive of catheter(s), pacemaker lead(s), or ICD lead(s). Atrial Septum: Normal atrial septum. Mitral Valve: Mitral valve leaflets appear mildly thickened. Mild mitral annularcalcification. Trivial regurgitation of the mitral valve. Aortic Valve: Aortic valve not well visualized. Mild to moderate aortic stenosis. PeakVelocity of 2.70 m/s. Mean gradient of 16.0 mmHg. Valve area of 1.5 cm2. Tricuspid Valve: Normal appearance of the tricuspid valve. Right ventricular systolicpressure could not be estimated due to inadequate visualization of the tricuspidregurgitation jet. Pulmonic Valve: Normal appearance of the pulmonic valve. Trivial regurgitation in thepulmonic valve. Pericardium: Normal pericardium with no significant pericardial effusion. Aorta: Aortic root not well visualized. IVC: Normal size and normal respiratory collapse consistent with normal rightatrial pressure (<5 mmHg). CONCLUSIONS: Normal left ventricular size. Moderate left ventricular hypertrophy.Normal global left ventricular systolic function. Impaired diastolic relaxation Grade I.Ejection fraction about 65-70 %. Global Longitudinal Strain is -13 %. Normal RV size and systolic function. Pacemaker noted in RA/RV. Mild leftatrial enlargement. Mitral valve leaflets appear mildly thickened. Mild mitral annularcalcification. Trivial regurgitation of the mitral valve. Aortic valve not well visualized, appears calcified. Mild to moderateaortic stenosis by GARDENIA. V max 2.70 m/s. Mean gradient 16 mmHg. Valve area of 1.5 cm2. Right ventricular systolic pressure could not be estimated due toinadequate visualization of the tricuspid regurgitation jet. Electronically Signed By: Hermann Kimbrough MD, [facility] 2024-07-03 14:58:14 CDT us Wilian Olea MD CV ECHO PROCEDURES Final Result documented in this encounter Visit Diagnoses Diagnosis Benign hypertension Essential hypertension, benign Atrial paroxysmal tachycardia (CMS/HCC) (HCC) Paroxysmal supraventricular tachycardia Complete atrioventricular block (CMS/HCC) (HCC) Atrioventricular block, complete Pacemaker lead malfunction, subsequent encounter Systolic murmur Undiagnosed cardiac murmurs documented in this encounter Care Teams Bacteriologist Pharmaceutical Relationship Specialty Start Date End Date Wes Alves MD PCP - General Family Practice 07/03/24 documented as of this encounter
--- OUTSIDE RECORDS SUMMARY | 2024-11-29 05:16 | XMS_ITS | Encounter Summary ---
Author Organization [facility] Address [address] [place] [address] Care Team Providers Care Filter Tank Operator Name Role Phone Wes Alves MD Primary Care Provider [phone] Reason for Referral * Cardiology (Routine) - Canceled Specialty Diagnoses / Procedures Referred By Contac t Referred To Contact Diagnoses Atrial paroxysmal tachycardia (HCC) Pacemaker Sick sinus syndrome (CMS/HCC) (HCC) Procedures DEVICE CHECK - IN OFFICE Hermann Kimbrough MD [address] [address] Phone: tel: fax: [facility] Referral ID Status Reason Start Date Expiration Date V isits Requested Visits Authorized [id number] Canceled 08/13/2024 09/12/2025 1 1 * Cardiology (Routine) - Canceled Specialty Diagnoses / Procedures Referred By Contac t Referred To Contact Diagnoses Atrial paroxysmal tachycardia (HCC) Pacemaker Sick sinus syndrome (CMS/HCC) (HCC) Procedures DEVICE CHECK - IN OFFICE Hermann Kimbrough MD [address] [facility] [address] [place] [address] Phone: tel: fax: [facility] Referral ID Status Reason Start Date Expiration Date V isits Requested Visits Authorized [id number] Canceled 08/13/2024 09/12/2025 1 1 * Cardiology (Routine) - Canceled Specialty Diagnoses / Procedures Referred By Contac t Referred To Contact Diagnoses Atrial paroxysmal tachycardia (HCC) Pacemaker Sick sinus syndrome (CMS/HCC) (HCC) Procedures DEVICE CHECK - IN OFFICE Hermann Kimbrough MD [address] [place] [address] Phone: tel: fax: [facility] Referral ID Status Reason Start Date Expiration Date V isits Requested Visits Authorized [id number] Canceled 08/13/2024 09/12/2025 1 1 Encounter Details Date Type Department Care Team (Late st Contact Info) Description 08/13/2024 Orders Only [facility] Cardiology [address] [place] [phone] Hermann Kimbrough MD [address] [place] [id number] Atrial paroxysmal tachycardia (CMS/HCC) (HCC) (Primary Dx); Pacemaker; Sick sinus syndrome (CMS/HCC) (HCC) Social History Tobacco Use Types Packs/Day Years Used Date Smoking Tobacco: Former Pipe Smokeless Tobacco: Never Comments:smokes pipe Alcohol Use Standard Drinks/Week Comments Yes 2 (1 standard drink = 0.6 oz pur e alcohol) occassionally Sex and Gender Information Value Date Recorded Sex Assigned at Not on file 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 Gender Identity Not on file Sexual Orientation Not on file documented as of this encounter Plan of Treatment Scheduled Orders Name Type Priority Associated Diagnoses Orde r Schedule DEVICE CHECK - IN OFFICE Cardiac Services Routine Atrial paroxysmal tachycardia (CMS/HCC) (HCC) Pacemaker Sick sinus syndrome (CMS/HCC) (HCC) Expected: 08/13/2024, Expires: 12/03/2031 DEVICE CHECK - IN OFFICE Cardiac Services Routine Atrial paroxysmal tachycardia (CMS/HCC) (HCC) Pacemaker Sick sinus syndrome (CMS/HCC) (HCC) Expected: 08/13/2024, Expires: 12/03/2031 DEVICE CHECK - IN OFFICE Cardiac Services Routine Atrial paroxysmal tachycardia (CMS/HCC) (HCC) Pacemaker Sick sinus syndrome (CMS/HCC) (HCC) Expected: 08/13/2024, Expires: 12/03/2031 documented as of this encounter Visit Diagnoses Diagnosis Atrial paroxysmal tachycardia (CMS/HCC) (HCC)- Primary Paroxysmal supraventricular tachycardia Pacemaker Cardiac pacemaker in situ Sick sinus syndrome (CMS/HCC) (HCC) Sinoatrial node dysfunction documented in this encounter Care Teams Filter Tank Operator Relationship Specialty Start Date End Date Wes Alves MD PCP - General Family Practice 07/03/24 documented as of this encounter
--- OUTSIDE RECORDS SUMMARY | 2024-11-29 05:17 | XMS_ITS | Encounter Summary ---
Author Organization [facility] Address [address] [place] [address] Care Team Providers Care Poker Dealer Name Role Phone Rodrick Rincon MD Primary Care Provider Reason for Visit * Reason Comments Follow-up 7 mo f/u. Pt had an echo on 03/18/22. Atrial Fibrillation Hypertension Sick Sinus Syndrome Encounter Details Date Type Department Care Team (Late st Contact Info) Description 07/11/2022 2:45 PM CDT Office Visit [facility] Cardiology [address] [place] [id number] Wilian Olea MD [address] [facility] [address] [place] [address] Primary hypertension (Primary Dx); Atrial paroxysmal tachycardia (CMS/HCC) (HCC); Sick sinus syndrome (CMS/HCC) (HCC); Mixed hyperlipidemia; Pacemaker Social History Tobacco Use Types Packs/Day Years Used Date Smoking Tobacco: Former Pipe Smokeless Tobacco: Never Comments:smokes pipe Alcohol Use Standard Drinks/Week Comments Yes 2 (1 standard drink = 0.6 oz pur e alcohol) occassionally Sex and Gender Information Value Date Recorded Sex Assigned at Not on file 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 Gender Identity Not on file Sexual Orientation Not on file documented as of this encounter Last Filed Vital Signs Vital Sign Reading Time Taken Comments Blood Pressure 128/66 07/11/2022 2:45 PM CDT Pulse 65 07/11/2022 2:45 PM CDT Temperature - - Respiratory Rate - - Oxygen Saturation 96% 07/11/2022 2:45 PM CDT Inhaled Oxygen Concentration - - Weight 78.2 kg (172 lb 4.8 oz) 07/11/2022 2:45 P M CDT Height 175.3 cm (5' 9 ) 07/11/2022 2:45 PM CDT Body Mass Index 25.44 07/11/2022 2:45 PM CDT documented in this encounter Ordered Prescriptions Prescription Sig Dispense Quantity Refills Last Filled Start Date End Date amLODIPine (NORVASC) 2.5 mg tablet Take 1 tablet (2.5 mg total) by mouth daily 90 tablet 3 07/11/2022 06/15/2023 documented in this encounter Progress Notes * Wilian Olea MD - 07/11/2022 2:45 PM CDT [facility] DATE OF VISIT: 07/11/2022 CHIEF COMPLAINT Chief Complaint Patient presents with ??? Follow-up 7 mo f/u. Pt had an echo on 03/18/22. ??? Atrial Fibrillation ??? Hypertension ??? Sick Sinus Syndrome ASSESSMENT Diagnoses and all orders for this visit: Primary hypertension (Primary) Atrial paroxysmal tachycardia (CMS/HCC) (HCC) Sick sinus syndrome (CMS/HCC) (HCC) Mixed hyperlipidemia Pacemaker Other orders - amLODIPine (NORVASC) 2.5 mg tablet; Take 1 tablet (2.5 mg total) by mouth daily PLAN/RECOMMENDATIONS 1. BP controlled, occ hypotensive spells, goal <140/90mmHg. Continue monitor at home. Monitor BPon routine basis. Call with readings. Continue consistent cardiovascular exercise, weight loss, medication compliance, and low-sodium diet. May change Amlodipine if BP elevated on average. No change at this time. -Continue Amlodipine 2.5mg, HCTZ 25mg daily, and Lisinopril 40mg daily 2. [facility] [facility] Routine PPM personally reviewed from 05/05/22 normal fxn, >99% WELDING ESTIMATOR 50% SVT AT noted, infrequent, underlying CHB. Battery function intact 3. Remains on Stelara for his Crohn's, colonoscopy last week doing well overall 4. 2D Echo 02/2022 EF 65-70% personally reviewed and discussed stable no . 5. No palps suggestive of significant PAT. Monitor burden on PPM check.stable only 5 PSVT over pastyear. 6. Lipids personally reviewed 12/17/21 LDL 105 HDL 91, well controlled goal LDL<100. Continue Atorvastatin 20mg qhs and lifestyle modification. Over 50% of this visit counseling SSS/PPM, HTN, lipids, medications, lifestyle modification. Follow up in the office in 6 months or sooner as needed. Thank you for allowing me the privilege of participating in the care this very pleasant patient. Please do not hesitate to contact me with any additional questions or concerns. HPI Dinesh Saha is a 82 y.o. 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 Bruno. OLD RECORDS: Crohn's disease, remote history of? Pericarditis, dyslipidemia, SSS with AV block and CHB 7.5sec pause s/p St[employer] Kendrick DC PPM by Dr. Bruno Avery 03/05/2015 previously has been referred for preoperative cardiovascular evaluation for upcoming prostate surgery for CA prostate. Patient gives remote history of pericarditis in , no recurrent episodes. He denies any prior history of OK, angina, CHF or arrhythmias. He has reasonable baseline functional capacity for his age. Denies any dyspnea on exertion, chest pain. Patient reports occasional dizziness without loss of consciousness. Denies any palpitations. His recent MPI was negative for ischemia. EKG shows sinus que ycardia with secondary degree type I AV block. ?? 07/13/15 Feels well, dizziness resolved. Good energy. NO edema or palps. No CP or SOB. Not following blood pressure at home. Feels okay no new complaints. 11/02/15 Not checking BP at home. Taking meds, Feeling well. NO c/o CP or SOB, palps or falls. BP variable at home still elevated frequently up to 150-160's as low as 120's. c/o tinnitus x year at least. Ector meds, no ill effects. No edema or bleeding. PPM 02/02/16 53% A-paced, >99% V-paced. No syncope. 05/16/16 STates BP still high at home avg 140-150 but in evening 160's. Feels ok, no CP or SOB or palps, no dizziness or falls. no edema. 08/10/16 Sciatica L leg taking NSAIDs. NO dizziness, CP or SOB, palps. Meticulous detail of BP and HR. No edema. NO bleeding.BP at home 110-140 w/ 130's on avg. Ector HCTZ I saw him in the office 08/22/17 for routine 6 month appt. No complaints or concerns, home SBP ranges 120-140, DBP ranges 70-80. He talked about ongoing problems with sciatica, seeking specialist referral. He was in [place] for 2 weeks in Jul, and missed his regularly scheduled remote interrogationfor his pacemaker on 08/01/2017. ??02/17/17 Doing ok but Crohn's has been flaring up. Hosp in Oct for ulcerations in cecum postop repair now on STellara. Splitting HCTZ into afternoon and evening dosing. Keeps meticulous records of BP. 10/09/17 CAT visit: He comes to the office today for preoperative evaluation. He is having back surgery with Dr. Robert at [facility] in early October. He denies chest pain, palpitations, syncope or near syncope. We received a remote download from his Casey and it was reviewed by Felisa Olea on 08/24/2017 showing normal device function. ECG performed in the office today a paced rhythm, ventricular rate 70 b.p.m.. 02/06/18 Feeling fairly well, under spinal fusion surgery 4 months ago without incident. +weight loss, eating ok, No CP or SOB, no falls. Infrequent dizziness, no edema or bleeding. NOtes HR a little higher since surgery. 11/07/18 Feeling well, no dizziness, CP, SOB or palps. Ector meds, following BP and HR closely. 05/15/19 Feeling well, occ dizziness no falls. No CP or palpitations or real SOB. Interested in maybe taking CBD oil for joint pains. NO bleeding Crohns under control with Stelara. HAd lipids done at [facility]. 11/22/19 Doing fairly well, BP better after stopping Tylenol he notes as he meticulously tracks hisBP. No bleeding, dizziness, falls or CP. Still taking ASA 81mg daily. 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 No dizziness SOB or CP. BP higher late Monday nights but eats candy once weekly on Sundays. 12/02/20 office visit 06/09/21 Doing ok in general pinched nerve in L shoulder. No CP no SOB palps, sig dizziness. No bleeding. 12/17/21 Doing ok in general PT for his back pain which is helping. Denies new SOB, CP or palps, no dizziness, edema. Ector meds. 07/11/22 feeling fine notes only occasional brief spells with SBP<100mmHg more tired at that timeotherwise no concerns. No palps, CP or SOB, falls. Ector meds no issues, ector meds. Chronic back pain. MEDICAL HISTORY Past Medical History: Diagnosis Date ??? Anemia ??? Cancer (CMS/HCC) (HCC) prostate cancer ??? Colon polyp ??? Crohn's disease (CMS/HCC) (HCC) ??? HX OTHER MEDICAL Crohn's disease ??? HX OTHER MEDICAL Dyslipidemia ??? HX OTHER MEDICAL ca prostate ??? HX OTHER MEDICAL ? Pericarditis ??? Hyperlipidemia ??? Hypertension ??? Migraines ??? Pacemaker Social History Tobacco Use ??? Smoking status: Former Smoker Types: Pipe ??? Smokeless tobacco: Never Used ??? Tobacco comment: smokes pipe Substance Use Topics ??? Alcohol use: Yes Alcohol/week: 2.0 standard drinks Types: 2 Cans of beer per week Comment: occassionally ??? Drug use: No Family History Problem Relation Age of Onset ??? Alzheimer's disease Mother MEDICATIONS HOME MEDICATIONS : acetaminophen (PAIN RELIEVER) 500 mg capsule aspirin 81 mg enteric coated tablet frwukaq-yxqvlsrxdihuu-xqarfhrd (EXCEDRIN MIGRAINE) 250-250-65 mg per tablet atorvastatin (LIPITOR) 20 mg tablet biotin 5,000 mcg tablet,disintegrating calcium carbonate-vitamin D3 (CALCIUM 500 + D) 500 mg(1,250mg) -400 unit tablet cholecalciferol (VITAMIN D3) 2,000 unit tablet clonazePAM (KlonoPIN) 0.5 mg tablet coenzyme Q42-luichjq E (CO Q-10, WITH VIT E,) 100-5 mg-unit capsule docusate sodium (DOK) 100 mg capsule folic acid (FOLVITE) 400 mcg tablet taboba-jia-I-Mn-herb#21 (GLUCOSAMINE-MSM COMPLEX) tablet hydroCHLOROthiazide (HYDRODIURIL) 25 mg tablet iron bisgly,ps-FA-B-C#12-succ (IROSPAN 24/6) 65 mg-65 mg -1,000 mcg (24) tablet lisinopriL (PRINIVIL,ZESTRIL) 40 mg tablet meclizine (ANTIVERT) 25 mg tablet melatonin 5 mg tablet multivitamin tablet tablet omega-3 fatty acids-vitamin E (FISH OIL) 1,000 mg capsule ondansetron ODT (ZOFRAN-ODT) 4 mg disintegrating tablet ustekinumab (STELARA) injection vitamin b complex tablet white petrolatum-mineral oil (eucerin) cream amLODIPine (NORVASC) 2.5 mg tablet amLODIPine (NORVASC) 2.5 mg tablet ALLERGIES No Known Allergies REVIEW OF SYSTEMS Review of Systems Constitutional: Positive for weight loss. Negative for decreased appetite, diaphoresis, fever, malaise/fatigue, night sweats and weight gain. HENT: Negative for hearing loss and nosebleeds. Eyes: Negative for blurred vision and pain. Cardiovascular: Positive for leg swelling. Negative for chest pain, claudication, dyspnea on exertion, irregular heartbeat, near-syncope, orthopnea, palpitations and syncope. Respiratory: Negative for cough, hemoptysis, shortness of breath, snoring and wheezing. Endocrine: Negative for cold intolerance and heat intolerance. Hematologic/Lymphatic: Negative for bleeding problem. Does not bruise/bleed easily. Skin: Negative for color change, itching, rash and suspicious lesions. Musculoskeletal: Positive for arthritis, back pain and joint pain. Negative for falls, muscle weakness and myalgias. Gastrointestinal: Negative for abdominal pain, heartburn, hematemesis, melena and nausea. Genitourinary: Negative for dysuria, hematuria and nocturia. Neurological: Positive for dizziness. Negative for excessive daytime sleepiness, focal weakness, headaches, light-headedness, loss of balance and weakness. Psychiatric/Behavioral: Negative for altered mental status, depression and memory loss. The patientis not nervous/anxious. Allergic/Immunologic: Negative for environmental allergies. PHYSICAL EXAM Vitals BP 128/66 (BP Location: Left arm, Patient Position: Sitting) Pulse 65 Ht 175.3 cm (5' 9 ) Wt 78.2 kg (172 lb 4.8 oz) SpO2 96% BMI 25.44 kg/m?? Weight: 78.2 kg (172 lb 4.8 oz) Height: 175.3 cm (5' 9 ) Body mass index is 25.44 kg/m??. Physical Exam Vitals reviewed. Constitutional: General: He is not in acute distress. Appearance: Normal appearance. He is well-developed. He is not diaphoretic. Comments: Wearing a mask HENT: Head: Normocephalic and atraumatic. Right Ear: External ear normal. Left Ear: External ear normal. Nose: Nose normal. Mouth/Throat: Dentition: Normal dentition. Eyes: General: Lids are normal. No scleral icterus. Conjunctiva/sclera: Conjunctivae normal. Neck: Thyroid: No thyromegaly. Vascular: Normal carotid pulses. No carotid bruit, hepatojugular reflux or JVD. Trachea: No tracheal deviation. Cardiovascular: Rate and Rhythm: Normal rate and regular rhythm. Pulses: Normal pulses and intact distal pulses. Heart sounds: S1 normal and S2 normal. Heart sounds not distant. Murmur heard. Medium-pitched midsystolic murmur is present with a grade of 3/6. No friction rub. No gallop. No S3 or S4 sounds. Pulmonary: Effort: Pulmonary effort is normal. No respiratory distress. Breath sounds: Normal breath sounds. No wheezing or rales. Chest: Chest wall: No tenderness. Abdominal: General: Bowel sounds are normal. There is no distension. Palpations: Abdomen is soft. There is no mass. Tenderness: There is no abdominal tenderness. There is no guarding or rebound. Musculoskeletal: General: No deformity. Normal range of motion. Cervical back: Normal range of motion and neck supple. Right lower leg: No tenderness. Edema present. Left lower leg: Edema present. Comments: Trace BLE edema Lymphadenopathy: Cervical: No cervical adenopathy. Skin: General: Skin is warm and dry. Coloration: Skin is not pale. Findings: No ecchymosis, erythema, petechiae or rash. Nails: There is no clubbing. Neurological: General: No focal deficit present. Mental Status: He is alert and oriented to person, place, and time. Mental status is at baseline. Cranial Nerves: No cranial nerve deficit. Motor: No abnormal muscle tone. Coordination: Coordination normal. Psychiatric: Mood and Affect: Mood normal. Speech: Speech normal. Behavior: Behavior normal. Behavior is cooperative. Thought Content: Thought content normal. Judgment: Judgment normal. LABS AND OTHER DIAGNOSTIC TESTS No visits with results within 3 Month(s) from this visit. Latest known visit with results is: Office Visit on 12/17/2021 Component Date Value Ref Range Status ??? Cholesterol, POC 12/17/2021 214 mg/dL Final ??? HDL, POC 12/17/2021 91 mg/dL Final ??? Triglycerides, POC 12/17/2021 92 mg/dL Final ??? LDL, Direct, POC 12/17/2021 105 mg/dL Final ??? Chol/HDL Ratio, POC 12/17/2021 2.4 Final ??? Non-HDL Cholesterol, POC 12/17/2021 123 mg/dL Final ??? Cholesterol Total, POC 12/17/2021 214 mg/dL Final Results for orders placed or performed in visit on 12/17/21 POCT lipid panel Result Value Ref Range Cholesterol, POC 214 mg/dL HDL, POC 91 mg/dL Triglycerides, POC 92 mg/dL LDL, Direct, POC 105 mg/dL Chol/HDL Ratio, POC 2.4 Non-HDL Cholesterol, POC 123 mg/dL Cholesterol Total, POC 214 mg/dL 03/09/[address] [facility] Dual Pacemaker Dx; SSS, PAT. DOI 03/05/[address] Bruno[address] [employer] remote home monitor Q3 mo, Office pacer checks Q1 yr. ?? Routine Pacemaker remote. Normal device function. Battery function-2.99V, 10.8 years estimated remaining longevity. Appropriate lead measurements. Presenting rhythm-APVP. AP-45%, WELDING ESTIMATOR->99%. 4 Atrial high rate episodes noted, max duration 2 min. No ventricular high rate episodes noted. Medications; Norvasc, Hydrochlorothiazide, Lisinopril, Lipitor, ASA. See scanned report. [employer] remote f/u 06/08/2021. 05/05/[address] [facility] Dual Pacemaker Dx; SSS, PAT. DOI 03/05/[address] Bruno[address] [employer] remote home monitor Q3 mo, Office pacer checks Q1 yr. ? Routine Pacemaker remote. Normal device function. ?? Battery function-2.96V, 10.1 years remaining battery life to ANGIE. ?? Appropriate lead measurements. ?? Presenting rhythm-APVP. AP-43%, WELDING ESTIMATOR->99%. ?? No Atrial high rate episodes noted. ? No ventricular high rate episodes noted. ?? Medications; Norvasc, Hydrochlorothiazide, Lisinopril, Lipitor, ASA. See scanned report. ?? Office pacemaker f/u and ROV with Dr Olea scheduled 06/21/2022. 03/18/22 2D Echo ([facility]): EF 65-75% mild LVH no mod BOOKER trvisial TR, trivial MR jaleel kahn on bubble study Personally reviewed EKG, Echocardiogram, pacemaker checks, and bloodwork/lipids. Nando Olea MD, FACC documented in this encounter Plan of Treatment Not on file documented as of this encounter Visit Diagnoses Diagnosis Primary hypertension- Primary Unspecified essential hypertension Atrial paroxysmal tachycardia (HCC) Paroxysmal supraventricular tachycardia Sick sinus syndrome (CMS/HCC) (HCC) Sinoatrial node dysfunction Mixed hyperlipidemia Pacemaker Cardiac pacemaker in situ documented in this encounter Discontinued Medications Medication Sig Discontinue Reason Start Date End Da te amLODIPine (NORVASC) 2.5 mg tablet TAKE 1 TABLET(2.5 MG) BY MOUTH DAILY Reorder 05/07/2021 07/11/2022 documented as of this encounter Care Teams Poker Dealer Relationship Specialty Start Date End Date Rodrick Rincon MD [address] [place], [place] [id number] PCP - General Internal Medicine 02/06/18 07/02/24 documented as of this encounter
--- OUTSIDE RECORDS SUMMARY | 2024-11-29 05:17 | XMS_ITS | Encounter Summary ---
Author Organization [facility] Address [address] [place] [address] Care Team Providers Care Talent Recruiter Name Role Phone Rodrick Rincon MD Primary Care Provider [phone] Reason for Visit * Cardiology (Routine) - Closed Specialty Diagnoses / Procedures Referred By Contac t Referred To Contact Diagnoses Sick sinus syndrome (CMS/HCC) (HCC) Atrial paroxysmal tachycardia (HCC) Procedures DEVICE CHECK - IN OFFICE Wilian Olea MD Phone: tel: fax: [facility] Referral ID Status Reason Start Date Expiration Date Visits Re quested Visits Authorized [id number] Closed 04/11/2022 05/11/2023 1 1 Encounter Details Date Type Department Care Team (Latest Contact Info) Description 01/16/2023 2:00 PM PSYCHIATRIC SECRETARY Ancillary Procedure [facility] Cardiology [address] [place] [phone] Sick sinus syndrome (CMS/HCC) (HCC); Atrial paroxysmal tachycardia (CMS/HCC) (HCC); History of cardiac pacemaker in situ Social History Tobacco Use Types Packs/Day Years Used Date Smoking Tobacco: Former Pipe Smokeless Tobacco: Never Comments:smokes pipe Alcohol Use Standard Drinks/Week Comments Yes 2 (1 standard drink = 0.6 oz pur e alcohol) occassionally Sex and Gender Information Value Date Recorded Sex Assigned at Not on file Legal Sex Male 3:29 AM PSYCHIATRIC SECRETARY Gender Identity Not on file Sexual Orientation Not on file documented as of this encounter Plan of Treatment Not on file documented as of this encounter Procedures Procedure Name Priority Date/Time Associated Diagnosis Comments DEVICE CHECK - IN OFFICE Routine 01/16/2023 2:33 PM PSYCHIATRIC SECRETARY Sick sinus syndrome (CMS/HCC) (HCC) Atrial paroxysmal tachycardia (CMS/HCC) (HCC) documented in this encounter Results * DEVICE CHECK - IN OFFICE (01/16/2023 2:33 PM PSYCHIATRIC SECRETARY) Anatomical Region Laterality Modality Other Narrative 01/20/2023 2:[address] [facility] Dual Pacemaker Dx; SSS, PAT. DOI 03/05/[address] Bruno[address] [employer] remote home monitor Q3 mo, Office pacer checks Q1 yr. ? Battery Advisory. Office pacemaker interrogation performed by [employer] u.s. representative. Appropriate device function. Battery function-2.95V, 2.7 years remaining battery life to ANGIE. AP-43%, SUSTAINABILITY DIRECTOR->99%. No Atrial high rate episodes noted. Ventricular high rate episodes noted, iegm's short bursts of v-lead noise. VIP turned off. See scanned report. [employer] remote f/u 04/25/2023. Wilian Olea MD [facility] PROC EDURES Final Result documented in this encounter Visit Diagnoses Diagnosis Sick sinus syndrome (CMS/HCC) (HCC) Sinoatrial node dysfunction Atrial paroxysmal tachycardia (HCC) Paroxysmal supraventricular tachycardia History of cardiac pacemaker in situ documented in this encounter Care Teams Talent Recruiter Relationship Specialty Start Date End Date Rodrick Rincon MD [address] [place] [address] PCP - General Internal Medicine 02/06/18 07/02/24 documented as of this encounter
--- OUTSIDE RECORDS SUMMARY | 2024-11-29 05:17 | XMS_ITS | Encounter Summary ---
Author Organization [facility] Address [address] [facility] [address] [place] [address] Care Team Providers Care Check Out Cashier Name Role Phone Rodrick Rincon MD Primary Care Provider [phone] Reason for Referral * Cardiology (Routine) - Closed Specialty Diagnoses / Procedures Referred By Contac t Referred To Contact Diagnoses Sick sinus syndrome (CMS/HCC) (HCC) Atrial paroxysmal tachycardia (HCC) Procedures DEVICE CHECK - IN OFFICE Wilian Olea MD Phone: tel: fax: [facility] Referral ID Status Reason Start Date Expiration Date Visits Re quested Visits Authorized [id number] Closed 04/11/2022 05/11/2023 1 1 Encounter Details Date Type Department Care Team (Late st Contact Info) Description 04/11/2022 Orders Only [facility] Medical [facility] Cardiology [address] [facility] [address] [facility] [place] [address] [place] [address] [place] [address] [place] [address] Sick sinus syndrome (CMS/HCC) (HCC) (Primary Dx); Atrial paroxysmal tachycardia (CMS/HCC) (HCC) Social History Tobacco Use Types Packs/Day Years Used Date Smoking Tobacco: Former Pipe Smokeless Tobacco: Never Comments:smokes pipe Alcohol Use Standard Drinks/Week Comments Yes 2 (1 standard drink = 0.6 oz pur e alcohol) occassionally Sex and Gender Information Value Date Recorded Sex Assigned at Not on file Legal Sex Male 3:29 AM ESCALATOR SERVICE MECHANIC Gender Identity Not on file Sexual Orientation Not on file documented as of this encounter Plan of Treatment Not on file documented as of this encounter Results * DEVICE CHECK - IN OFFICE (01/16/2023 2:33 PM ESCALATOR SERVICE MECHANIC) Anatomical Region Laterality Modality Other Narrative 01/20/2023 2:[address]AL[address] SERVICE MECHANIC [facility] Dual Pacemaker Dx; SSS, PAT. DOI 03/05/[address] Bruno[address] [employer] remote home monitor Q3 mo, Office pacer checks Q1 yr. ? Battery Advisory. Office pacemaker interrogation performed by [employer] telephone services sales representative. Appropriate device function. Battery function-2.95V, 2.7 years remaining battery life to ANGIE. AP-43%, SOAP INSPECTOR->99%. No Atrial high rate episodes noted. Ventricular high rate episodes noted, iegm's short bursts of v-lead noise. VIP turned off. See scanned report. [employer] remote f/u 04/25/2023. Wilian Olea MD [facility] PROC EDURES Final Result documented in this encounter Visit Diagnoses Diagnosis Sick sinus syndrome (CMS/HCC) (HCC)- Primary Sinoatrial node dysfunction Atrial paroxysmal tachycardia (HCC) Paroxysmal supraventricular tachycardia Sick sinus syndrome (CMS/HCC) (HCC) Sinoatrial node dysfunction Atrial paroxysmal tachycardia (HCC) Paroxysmal supraventricular tachycardia History of cardiac pacemaker in situ documented in this encounter Care Teams Check Out Cashier Relationship Specialty Start Date End Date Rodrick Rincon MD [address] [place] [address] PCP - General Internal Medicine 02/06/18 07/02/24 documented as of this encounter
--- OUTSIDE RECORDS SUMMARY | 2024-11-29 05:17 | XMS_ITS | Encounter Summary ---
Author Organization [facility] Address [address] [facility] [address] [place] [address] Care Team Providers Care Rolling Chair Pusher Name Role Phone Rodrick Rincon MD Primary Care Provider [phone] Encounter Details Date Type Department Care Team (Late st Contact Info) Description 07/26/[address] [facility] Cardiology [address] [facility] [address] [address] [place] [address] [place] [address] [address] [place] [address] Pacemaker (Primary Dx); Pacemaker lead malfunction, subsequent encounter; CHB (complete heart block) (CMS/HCC) (HCC) Social History Tobacco Use Types Packs/Day Years Used Date Smoking Tobacco: Former Pipe Smokeless Tobacco: Never Comments:smokes pipe Alcohol Use Standard Drinks/Week Comments Yes 2 (1 standard drink = 0.6 oz pur e alcohol) occassionally Sex and Gender Information Value Date Recorded Sex Assigned at Not on file Legal 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 Gender Identity Not on file Sexual Orientation Not on file documented as of this encounter Plan of Treatment Not on file documented as of this encounter Procedures Procedure Name Priority Date/Time Associated Diagnosis Comments XR CHEST PA LATERAL 2 VIEWS Schedule Routine, Read Routine (OP Routine) 08/08/2023 Pacemaker Pacemaker lead malfunction, subsequent encounter CHB (complete heart block) (CMS/HCC) (HCC) documented in this encounter Results * X-ray chest 2 views (08/08/2023) Anatomical Region Laterality Modality Body, Chest N/A Radiographic Amina ging Wilian Olea MD IMG XR PROCEDURES Final Result documented in this encounter Visit Diagnoses Diagnosis Pacemaker- Primary Cardiac pacemaker in situ Pacemaker lead malfunction, subsequent encounter CHB (complete heart block) (CMS/HCC) (HCC) Atrioventricular block, complete documented in this encounter Care Teams Rolling Chair Pusher Relationship Specialty Start Date End Date Rodrick Rincon MD [address] [place] [address] PCP - General Internal Medicine 02/06/18 07/02/24 documented as of this encounter
--- OUTSIDE RECORDS SUMMARY | 2024-11-29 05:17 | XMS_ITS | Encounter Summary ---
Author Organization [facility] Address [address] [facility] [address] [place] [address] Care Team Providers Care Ship Keeper Name Role Phone Rodrick Rincon MD Primary Care Provider [phone] Reason for Visit * Reason Comments Sick Sinus Syndrome Hypertension 6 mo f/u Encounter Details Date Type Department Care Team (Latest Contact Info) Description 01/16/2023 2:30 PM GLOST TILE SORTER Office Visit [facility] Cardiology [address] [facility] [address] [place] [address] Wilian Olea MD [address] [facility] [address] [place] [address] Atrial paroxysmal tachycardia (CMS/HCC) (HCC) (Primary Dx); Benign hypertension; Mixed hyperlipidemia; Complete atrioventricular block (CMS/HCC) (HCC); Pacemaker Social History Tobacco Use Types Packs/Day Years Used Date Smoking Tobacco: Former Pipe Smokeless Tobacco: Never Tobacco Cessation:Counseling Given: Not Answered Comments:smokes pipe Alcohol Use Standard Drinks/Week Comments Yes 2 (1 standard drink = 0.6 oz pur e alcohol) occassionally Sex and Gender Information Value Date Recorded Sex Assigned at Not on file Legal Sex Male 3:29 AM GLOST TILE SORTER Gender Identity Not on file Sexual Orientation Not on file documented as of this encounter Last Filed Vital Signs Vital Sign Reading Time Taken Comments Blood Pressure 138/70 01/16/2023 2:49 PM GLOST TILE SORTER Pulse 63 01/16/2023 2:49 PM GLOST TILE SORTER Temperature - - Respiratory Rate - - Oxygen Saturation 95% 01/16/2023 2:49 PM GLOST TILE SORTER Inhaled Oxygen Concentration - - Weight 78 kg (172 lb) 01/16/2023 2:49 PM GLOST TILE SORTER Height 175.3 cm (5' 9 ) 01/16/2023 2:49 PM GLOST TILE SORTER Body Mass Index 25.4 01/16/2023 2:49 PM GLOST TILE SORTER documented in this encounter Progress Notes * Wilian Olea MD - 01/16/2023 2:30 PM CST [facility] DATE OF VISIT: 01/16/2023 CHIEF COMPLAINT Chief Complaint Patient presents with ??? Sick Sinus Syndrome ??? Hypertension 6 mo f/u ASSESSMENT Diagnoses and all orders for this visit: Atrial paroxysmal tachycardia (CMS/HCC) (HCC) (Primary) Benign hypertension Mixed hyperlipidemia Complete atrioventricular block (CMS/HCC) (HCC) Pacemaker PLAN/RECOMMENDATIONS 1. BP controlled, occ hypotensive spells, goal <140/90mmHg. Continue monitor at home. Monitor BPon routine basis. Call with readings. Continue consistent cardiovascular exercise, weight loss, medication compliance, and low-sodium diet. -Continue Amlodipine 2.5mg, HCTZ 25mg daily, and Lisinopril 40mg daily 2. [facility] Routine PPM personally reviewed from 01/16/23 check in the office normal fxn, AP 43%, BILLIARD TABLE MECHANIC>99%% no SVT AT noted this check. Underlying CHB. Battery function intact. Personally reviewed and discussed. 3. Remains on Stelara for his Crohn's. 4. 2D Echo 02/2022 EF 65-70% stable no . No heart failure. 5. No palps suggestive of significant PAT. Monitor burden on PPM check.stable, no recurrent events. 6. Lipids personally reviewed 01/16/23 LDL 58 HDL >100, well controlled goal LDL<100. ContinueAtorvastatin 20mg qhs and lifestyle modification. Over 50% [...] episodes. He denies any prior history of RI, angina, CHF or arrhythmias. He has reasonable baseline functional capacity for his age. Denies any dyspnea on exertion, chest pain. Patient reports occasional dizziness without loss of consciousness. Denies any palpitations. His recent MPI was negative for ischemia. EKG shows sinus que ycardia with secondary degree type I AV block. 07/13/15 Feels well, dizziness resolved. Good energy. NO edema or palps. No CP or SOB. Not followingblood pressure at home. Feels okay no new [...] sciatica, seeking specialist referral. He was in [place] for 2 weeks in Jul, and missed his regularly scheduled remote interrogationfor his pacemaker on 08/01/2017. 02/17/17 Doing ok but Crohn's has been flaring up. Hosp in Oct for ulcerations in cecum postop repair now on STellara. Splitting HCTZ into afternoon and evening dosing. Keeps meticulous records of BP. 10/09/17 CAT visit: He comes to the office today for preoperative evaluation. He is having back surgery with Dr. Robert at [facility] in early October. He denies chest pain, palpitations, syncope or near syncope. We received a remote download from his [employer] and it was reviewed by Felisa Olea [...] control with Stelara. HAd lipids done at [facility] [place]. 11/22/19 Doing fairly well, BP better after stopping Tylenol he notes as he meticulously tracks hisBP. No bleeding, dizziness, falls or CP. Still taking ASA 81mg daily. 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 No [...] no issues, ector meds. Chronic back pain. 01/16/23 pacemaker check today in the office. Feeling well, no changes which he states he is a good thing. No CP, SOB, or palps. No edema. BP varies but states generally better than initial BP typically 130's. MEDICAL HISTORY Past Medical History: Diagnosis Date [...] : acetaminophen (PAIN RELIEVER) 500 mg capsule amLODIPine (NORVASC) 2.5 mg tablet aspirin 81 mg enteric coated tablet yyzobnp-ttjbdgphtkorq-jzoijasq (EXCEDRIN MIGRAINE) 250-250-65 mg per tablet atorvastatin (LIPITOR) 20 mg tablet biotin 5,000 mcg tablet,disintegrating calcium carbonate-vitamin D3 (CALCIUM 500 + D) 500 mg(1,250mg) -400 unit tablet cholecalciferol (VITAMIN D3) 2,000 unit tablet clonazePAM (KlonoPIN) 0.5 mg tablet coenzyme A76-nracspp E (CO Q-10, WITH VIT E,) 100-5 mg-unit capsule docusate sodium (DOK) 100 mg capsule folic acid (FOLVITE) 400 mcg tablet zlfkik-puf-S-Mn-herb#21 (GLUCOSAMINE-MSM COMPLEX) tablet hydroCHLOROthiazide (HYDRODIURIL) 25 mg tablet iron bisgly,ps-FA-B-C#12-succ (IROSPAN 20/05) 65 mg-65 mg -1,000 mcg (24) tablet lisinopriL (PRINIVIL,ZESTRIL) 40 mg tablet meclizine (ANTIVERT) 25 mg tablet melatonin 5 mg tablet multivitamin tablet tablet omega-3 fatty acids-vitamin E (FISH OIL) 1,000 mg capsule ondansetron ODT (ZOFRAN-ODT) 4 mg disintegrating tablet ustekinumab (STELARA) injection vitamin b complex tablet white petrolatum-mineral oil (eucerin) cream ALLERGIES No Known Allergies REVIEW OF SYSTEMS [...] not nervous/anxious. Allergic/Immunologic: Negative for environmental allergies. All other systems reviewed and are negative. PHYSICAL EXAM Vitals BP 138/70 (BP Location: Right arm, Patient Position: Sitting) Pulse 63 Ht 175.3 cm (5' 9 ) Wt 78 kg (172 lb) SpO2 95% BMI 25.40 kg/m?? Weight: 78 kg (172 lb) Height: 175.3 cm (5' 9 ) Body mass index is 25.4 kg/m??. Physical Exam Vitals reviewed. Constitutional: General: He is not in acute distress. Appearance: Normal appearance. He is well-developed. He is not diaphoretic. Comments: Wearing a mask HENT: Head: Normocephalic and atraumatic. Right Ear: External ear normal. Left Ear: External ear normal. Nose: Nose normal. Mouth/Throat: Mouth: Mucous membranes are moist. Dentition: Normal dentition. Eyes: General: Lids are normal. No scleral icterus. Extraocular Movements: Extraocular movements intact. Conjunctiva/sclera: Conjunctivae normal. Neck: Thyroid: No thyromegaly. Vascular: Normal carotid pulses. No carotid bruit, hepatojugular reflux or JVD. Trachea: No tracheal deviation. Cardiovascular: Rate and Rhythm: Normal rate and regular rhythm. Pulses: Normal pulses and intact distal pulses. No decreased pulses. Heart sounds: S1 normal and S2 [...] no guarding or rebound. Musculoskeletal: General: No tenderness or deformity. Normal range of motion. Cervical back: Normal range of motion and neck supple. Right lower leg: No tenderness. Edema present. Left lower leg: Edema present. Comments: No LE edema Mild clubbing in fingers, no cyanosis Lymphadenopathy: Cervical: No cervical adenopathy. Skin: General: [...] SSS, PAT. DOI 03/05/[address] Bruno. [employer] remote home monitor Q3 mo, Office pacer checks Q1 yr. Routine Pacemaker remote. Normal device function. Battery function-2.99V, 10.8 years estimated remaining longevity. Appropriate lead measurements. Presenting rhythm-APVP. AP-45%, BILLIARD TABLE MECHANIC->99%. 4 Atrial high rate episodes noted, max duration 2 min. No ventricular high rate episodes noted. Medications; Norvasc, Hydrochlorothiazide, Lisinopril, Lipitor, ASA. See scanned report. [employer] remote f/u 06/08/2021. 05/05/[address] [facility] Dual Pacemaker Dx; SSS, PAT. DOI 03/05/[address] Bruno[address] [employer] remote home monitor Q3 mo, Office pacer checks Q1 yr. Routine Pacemaker remote. Normal device function. Battery function-2.96V, 10.1 years remaining battery life to ANGIE. Appropriate lead measurements. Presenting rhythm-APVP. AP-43%, BILLIARD TABLE MECHANIC->99%. No Atrial high rate episodes noted. No ventricular high rate episodes noted. Medications; Norvasc, Hydrochlorothiazide, Lisinopril, Lipitor, ASA. See scanned report. Office pacemaker f/u and ROV with Dr Olea scheduled 06/21/2022. 03/18/22 2D Echo ([place]): EF 65-75% mild LVH no mod BOOKER trvisial TR, trivial MR jaleel kahn on bubble study Personally reviewed EKG, Echocardiogram, pacemaker checks, and bloodwork/lipids. Nando Olea MD, FACC T TILE SORTER documented in this encounter Miscellaneous Notes * Addendum Note - Paola Hdez MA - 01/16/2023 2:30 PM CSTAddended by: PAOLA HDEZ on: 01/16/2023 04:05 PM Modules accepted: Orders T TILE SORTER documented in this encounter Plan of Treatment Not on file documented as of this encounter Procedures Procedure Name Priority Date/Time Associated Diagnosis Comments POCT LIPID PANEL Routine 01/16/2023 4:05 PM GLOST TILE SORTER Mixed hyperlipidemia documented in this encounter Results * POCT lipid panel (01/16/2023 4:05 PM GLOST TILE SORTER) Cholesterol, POC 176 mg/dL HDL, POC >100 mg/dL Triglycerides, POC 86 mg/dL LDL Cholesterol POC 58 mg/dL Chol/HDL Ratio, POC N/A Non-HDL Cholesterol, POC N/A mg/dL Cholesterol Total, POC 176 mg/dL Capillary blood 01/16/2023 4 :05 PM GLOST TILE SORTER Wilian Olea MD POINT OF CARE TEST ORDER GOGO Final Result documented in this encounter Visit Diagnoses Diagnosis Atrial paroxysmal tachycardia (HCC)- Primary Paroxysmal supraventricular tachycardia Benign hypertension Essential hypertension, benign Mixed hyperlipidemia Complete atrioventricular block (CMS/HCC) (HCC) Atrioventricular block, complete Pacemaker Cardiac pacemaker in situ documented in this encounter Care Teams Ship Keeper Relationship Specialty Start Date End Date Rodrick Rincon MD [address] [place] [address] PCP - General Internal Medicine 02/06/18 07/02/24 documented as of this encounter
--- OUTSIDE RECORDS SUMMARY | 2024-11-29 05:17 | XMS_ITS | Encounter Summary ---
Author Organization [facility] Address [address] [place] [address] Care Team Providers Care Dimethylaniline Sulfator Operator Name Role Phone Rodrick Rincon MD Primary Care Provider [phone] Encounter Details Date Type Department Care Team (Late st Contact Info) Description 09/15/2023 Telephone [facility] Cardiology [address] [facility] [address] [place] [address] Wilian Olea MD [address] [place] [id number] Social History Tobacco Use Types Packs/Day Years Used Date Smoking Tobacco: Former Pipe Smokeless Tobacco: Never Comments:smokes pipe Alcohol Use Standard Drinks/Week Comments Yes 2 (1 standard drink = 0.6 oz pur e alcohol) occassionally Sex and Gender Information Value Date Recorded Sex Assigned at Not on file Legal Sex Male 3:29 AM ROUGHER FOR CEMENT Gender Identity Not on file Sexual Orientation Not on file documented as of this encounter Miscellaneous Notes * Telephone Encounter - Naz Mcgee RN - 09/15/2023 12:49 PM CDT Spoke with pt, he has been concerned about his BP in the middle of the night-pts sleep schedule is normally 4499-8449. Pt said his BP has been up 140/75, 148/75, 162/84, 155/78, 163/81 in the middle of the night-he usually eats some nuts and then it goes down. Pt said he normally takes his BP medications around 1130 and has also been checking his BP's 1-2 hours after that and they have been doing fine. Advised pt to cont to check his BP only 1-2 times a day after his meds and keep a log for AD at his upcoming appt. Discussed the anxiety and stress related to over checking his BP causing it togo up because of that-pt verbalized understanding. 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 Advised pt againstthis going forward and that it is not helpful-he agreed and said he will try to reduce the number of checks. Pt said otherwise he is feeling fine-no CP or any other problems. Pt appreciated the callback and information. * Telephone Encounter - Shy Osorio - 09/15/2023 12:13 PM CDT Pt states his BP has been elevated since yesterday. States it usually gets high after 2 am but thenhe eats a salty snack and it goes back to normal. Last night it did not go back to normal after eating a healthy snack which made him anxious. States he had to take a tranquilizer to put him to sleep. States AD recently increased Amlodipine a few weeks ago. Requesting call back to discuss. 163 Contact: documented in this encounter Plan of Treatment Not on file documented as of this encounter Visit Diagnoses Not on filedocumented in this encounter Care Teams Dimethylaniline Sulfator Operator Relationship Specialty Start Date End Date Rodrick Rincon MD [address] [place] [address] PCP - General Internal Medicine 02/06/18 07/02/24 documented as of this encounter
--- OUTSIDE RECORDS SUMMARY | 2024-11-29 05:17 | XMS_ITS | Encounter Summary ---
Author Organization [facility] Address [address] [place] [address] Care Team Providers Care Fashion Consultant Name Role Phone Rodrick Rincon MD Primary Care Provider [phone] Reason for Visit * Reason Comments Follow-up 6 mo f/u Hypertension Sick Sinus Syndrome Encounter Details Date Type Department Care Team (Latest Contact Info) Description 07/24/2023 3:00 PM CDT Office Visit [facility] Cardiology [address] [place] [address] Wilian Olea MD [address] [facility] [address] [place] [address] Pacemaker lead malfunction, subsequent encounter (Primary Dx); Complete atrioventricular block (CMS/HCC) (HCC); Benign hypertension; Mixed hyperlipidemia; History of cardiac pacemaker in situ Social History Tobacco Use Types Packs/Day Years Used Date Smoking Tobacco: Former Pipe Smokeless Tobacco: Never Comments:smokes pipe Alcohol Use Standard Drinks/Week Comments Yes 2 (1 standard drink = 0.6 oz pur e alcohol) occassionally Sex and Gender Information Value Date Recorded Sex Assigned at Not on file 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 Gender Identity Not on file Sexual Orientation Not on file documented as of this encounter Last Filed Vital Signs Vital Sign Reading Time Taken Comments Blood Pressure 138/82 07/24/2023 3:07 PM CDT Pulse 76 07/24/2023 3:07 PM CDT Temperature - - Respiratory Rate - - Oxygen Saturation 97% 07/24/2023 3:07 PM CDT Inhaled Oxygen Concentration - - Weight 74.5 kg (164 lb 4.8 oz) 07/24/2023 3:07 P M CDT Height 175.3 cm (5' 9 ) 07/24/2023 3:07 PM CDT Body Mass Index 24.26 07/24/2023 3:07 PM CDT documented in this encounter Progress Notes * Wilian Olea MD - 07/24/2023 3:00 PM CDT [facility] DATE OF VISIT: 07/24/2023 CHIEF COMPLAINT Chief Complaint Patient presents with ??? Follow-up 6 mo f/u ??? Hypertension ??? Sick Sinus Syndrome ASSESSMENT Diagnoses and all orders for this visit: Pacemaker lead malfunction, subsequent encounter (Primary) Complete atrioventricular block (CMS/HCC) (HCC) Benign hypertension Mixed hyperlipidemia History of cardiac pacemaker in situ PLAN/RECOMMENDATIONS 1. BP controlled, occ hypotensive spells, goal <140/90mmHg. Continue monitor at home. Monitor BPon routine basis. Call with readings. Continue consistent cardiovascular exercise, weight loss, medication compliance, and low-sodium diet. -Continue Amlodipine 2.5mg, HCTZ 25mg daily, and Lisinopril 40mg daily 2. [facility] Routine PPM personally reviewed from 03/2023 check, Right ventricular noise stored as 8 high ventricular rate episodes with significant decline in estimated longevity most notably from February to July 2022 relatively stable declined subsequently and concern for pacemaker inhibition which could result in significant symptomatic pauses. AP 36%, SR TECHNICAL SALES CONSULTANT 100% no SVT AT noted this check. Underlying CHB. Personally reviewed and discussed. Discussed with Chad and as well he will need to be seen in the office on Monday to attempt manipulation of his device settings and troubleshoot. We discussed potential for RV lead revision, eventual need for pacemaker generator change and ideally if necessary this could performed at the same time but not until pacemaker longevity has progressed. However, if RV lead function/integrity results in unacceptable safety this would take precedence at theappropriate time. Patient verbalized understanding and agreed with plan of care. Counseled to monitor for near- syncope, syncope, declining activity tolerance / bradycardia and if noted present to nearest ER via EMS immediately. 3. Remains on Stelara for his Crohn's. 4. 2D Echo 02/2022 EF 65-70% stable no . No heart failure. -Obtain 2D echocardiogram to assess for LV size/systolic and diastolic function, valve pathology, pulmonary pressures, and chamber size After pacemaker interrogation this Monday. Recommendations to follow. 5. No significant palps suggestive of significant PAT. Monitor burden on PPM check. Stable at this time, no recurrent events. 6. Lipids personally reviewed [...] or concerns. HPI Dinesh Saha is a 83 y.o. male with a PMHx of Crohn's [...] Patient gives remote history of pericarditis in 1980s, no recurrent episodes. He denies any prior history of [place], angina, CHF or arrhythmias. He has reasonable [...] sciatica, seeking specialist referral. He was in [place] for 2 weeks in Jul, and missed [...] having back surgery with Dr. Robert at [facility] in early October. He denies chest pain, palpitations, syncope or near syncope. We received a remote download from his [employer] and it was reviewed by Felisa Olea [...] pains. NO bleeding Crohns under control with Marcus. HAd lipids done at [facility]. 11/22/19 Doing fairly well, BP better after stopping Tylenol he notes as he meticulously tracks hisBP. No bleeding, dizziness, falls or CP. Still taking ASA 81mg daily. 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 No [...] generally better than initial BP typically 130's. 07/24/23 Denies dizziness, near syncope or syncope. Feeling ok. Concern with regards to ventricular noise resulting in inhibition of right ventricular pacing particularly concerning given patient is dependent on pacemaker 100%. Patient denies clear symptoms although at times notes he feels a little weird but is unclear if this is related. Patient denies chest pain, notes occasional but infrequent skipped beat but no recent falls, declining activity tolerance. MEDICAL HISTORY Past Medical History: Diagnosis Date [...] tablet aspirin 81 mg enteric coated tablet lgdxpgu-ebkbjricsyeks-hooywyuo (EXCEDRIN MIGRAINE) 250-250-65 mg per tablet atorvastatin (LIPITOR) 20 mg tablet biotin 5,000 mcg tablet,disintegrating calcium carbonate-vitamin D3 (CALCIUM 500 + D) 500 mg(1,250mg) -400 unit tablet cholecalciferol (VITAMIN D3) 2,000 unit tablet clonazePAM (KlonoPIN) 0.5 mg tablet coenzyme M49-mdzdpfv E (CO Q-10, WITH VIT E,) 100-5 mg-unit capsule docusate sodium (DOK) 100 mg capsule folic acid (FOLVITE) 400 mcg tablet rstuyz-wde-B-Mn-herb#21 (GLUCOSAMINE-MSM COMPLEX) tablet hydroCHLOROthiazide (HYDRODIURIL) 25 mg tablet iron bisgly,ps-FA-B-C#12-succ (IROSPAN 24/6) 65 mg-65 mg -1,000 mcg (24) tablet lisinopriL (PRINIVIL,ZESTRIL) 40 mg tablet meclizine (ANTIVERT) 25 mg tablet melatonin 5 mg tablet multivitamin tablet tablet omega-3 fatty acids-vitamin E (FISH OIL) 1,000 mg capsule ondansetron ODT (ZOFRAN-ODT) 4 mg disintegrating tablet traZODone (DESYREL) 50 mg tablet ustekinumab (STELARA) injection vitamin b complex [...] and are negative. PHYSICAL EXAM Vitals BP 138/82 (BP Location: Left arm, Patient Position: Sitting) Pulse 76 Ht 175.3 cm (5' 9 ) Wt 74.5 kg (164 lb 4.8 oz) SpO2 97% BMI 24.26 kg/m?? Weight: 74.5 kg (164 lb 4.8 oz) Height: 175.3 cm (5' 9 ) Body mass index is 24.26 kg/m??. Physical Exam Vitals reviewed. Constitutional: General: [...] visit with results is: Office Visit on 01/16/2023 Component Date Value Ref Range Status ??? Cholesterol, POC 01/16/2023 176 mg/dL Final ? ? HDL, POC 01/16/2023 >100 mg/dL Final ??? Triglycerides, POC 01/16/2023 86 mg/dL Final ??? LDL, Direct, POC 01/16/2023 58 mg/dL Final ??? Chol/HDL Ratio, POC 01/16/2023 N/A Final ??? Non-HDL Cholesterol, POC 01/16/2023 N/A mg/dL Final ??? Cholesterol Total, POC 01/16/2023 176 mg/dL Final Results for orders placed or performed in visit on 01/16/23 POCT lipid panel Result Value Ref Range Cholesterol, POC 176 mg/dL HDL, POC >100 mg/dL Triglycerides, POC 86 mg/dL LDL, Direct, POC 58 mg/dL Chol/HDL Ratio, POC N/A Non-HDL Cholesterol, POC N/A mg/dL Cholesterol Total, POC 176 mg/dL 03/09/[address] [facility] Dual Pacemaker Dx; SSS, PAT. DOI 03/05/[address] Burno. [place] remote home monitor Q3 mo, Office pacer checks Q1 yr. Routine Pacemaker remote. Normal device function. Battery function-2.99V, 10.8 years estimated remaining longevity. Appropriate lead measurements. Presenting rhythm-APVP. AP-45%, SR TECHNICAL SALES CONSULTANT->99%. 4 Atrial high rate episodes noted, max duration 2 min. No ventricular high rate episodes noted. Medications; Norvasc, Hydrochlorothiazide, Lisinopril, Lipitor, ASA. See scanned report. [place] remote f/u 06/08/2021. 05/05/[address] [facility] Dual Pacemaker Dx; SSS, PAT. DOI 03/05/[address] Bruno[address] [place] remote home monitor Q3 mo, Office pacer checks Q1 yr. Routine Pacemaker remote. Normal device function. Battery function-2.96V, 10.1 years remaining battery life to ANGIE. Appropriate lead measurements. Presenting rhythm-APVP. AP-43%, SR TECHNICAL SALES CONSULTANT->99%. No Atrial high rate episodes noted. No ventricular high rate episodes noted. Medications; Norvasc, Hydrochlorothiazide, Lisinopril, Lipitor, ASA. See scanned report. Office pacemaker f/u and ROV with Dr Olea scheduled 06/21/2022. 03/18/22 2D Echo ([facility]): EF 65-75% mild LVH no mod BOOKER trvisial TR, trivial MR jaleel kahn on bubble study 04/25/23 PM CHECK (REMOTE) Patient ID: Dinesh Saha is a 83 y.o. male This patient received a Petty Pacemaker. They had a routine remote transmission on 04/25/2023. Device implant indications: Sick sinus syndrome Interrogation of the patient's device demonstrates the following: Presenting EGM: A sense V pace there is short durations of noise appreciated on the presenting EGM notably on the right ventricular lead @ 65 bpm Original Device Settings Right Atrium Right Ventricle Sensitivity (mV) Auto mV 2.0 mV Pacing Outputs 1.25 V @ 0.40 ms 1.0 V @ 0.40 ms Testing Measurements Right Atrium Right Ventricle Sensitivity (mV) 2.1 mV 7.6 mV Impedence (Ohms) 350 ohms 550 ohms Pace Threshold 0.250 V @ .40 ms 0.75 V @ 0.40 ms Pacing % 36 % 100 % Battery Status: 2.3 years to ANGIE Episodes last 90 days/Comments: AF Neon 0 % 8 HVR episodes- stored episodes do note what appears to be noise in the right ventricular lead of note the patient is pacemaker dependent there is presumed inhibition of pacing during these time periods. NORMAL DEVICE FUNCTION PROGRAMMED MEDICATIONS: Anti-coagulant(s): Aspirin 81 mg Anti-arrhythmic(s): Norvasc 2.5 mg twice daily PLAN: 1) Petty Pacemaker evaluation 2) Petty remote transmission scheduled in 3 months. 3) Programming appropriate for device measurements Julianna Aponte RN Personally reviewed EKG, Echocardiogram, pacemaker checks, and bloodwork/lipids. Nando Olea MD, FACC documented in this encounter Plan of Treatment Not on file documented as of this encounter Visit Diagnoses Diagnosis Pacemaker lead malfunction, subsequent encounter- Primary Complete atrioventricular block (CMS/HCC) (HCC) Atrioventricular block, complete Benign hypertension Essential hypertension, benign Mixed hyperlipidemia History of cardiac pacemaker in situ documented in this encounter Historical Medications * This list may reflect changes made after this encounter. traZODone (DESYREL) 50 mg tablet TAKE ONE-HALF TABLET BY MOUTH EVERY DAY AT BEDTIME NEEDED FOR INSOMNIA added in this encounter Care Teams Fashion Consultant Relationship Specialty Start Date End Date Rodrick Rincon MD [address] [place] [address] PCP - General Internal Medicine 02/06/18 07/02/24 documented as of this encounter
--- OUTSIDE RECORDS SUMMARY | 2024-11-29 05:17 | XMS_ITS | Encounter Summary ---
Author Organization [facility] Address [address] [place] [address] Care Team Providers Care Serger Name Role Phone Rodrick Rincon MD Primary Care Provider [phone] Reason for Visit * Cardiology (Routine) - Closed Specialty Diagnoses / Procedures Referred By Contac t Referred To Contact Diagnoses Sick sinus syndrome (CMS/HCC) (HCC) Atrial paroxysmal tachycardia (HCC) Pacemaker Procedures DEVICE CHECK - REMOTE Wilian Olea MD Phone: tel: fax: [facility] Referral ID Status Reason Start Date Expiration Date Visits Re quested Visits Authorized [id number] Closed 01/19/2023 07/19/2024 1 1 Encounter Details Date Type Department Care Team (Latest Contact Info) Description 10/31/2023 7:45 AM SENIOR VICE PRESIDENT Ancillary Procedure [facility] Cardiology [address] [place] [phone] Sick sinus syndrome (CMS/HCC) (HCC); Atrial paroxysmal tachycardia; Pacemaker Social History Tobacco Use Types Packs/Day Years Used Date Smoking Tobacco: Former Pipe Smokeless Tobacco: Never Comments:smokes pipe Alcohol Use Standard Drinks/Week Comments Yes 2 (1 standard drink = 0.6 oz pur e alcohol) occassionally Sex and Gender Information Value Date Recorded Sex Assigned at Not on file Legal Sex 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 Gender Identity Not on file Sexual Orientation Not on file documented as of this encounter Plan of Treatment Not on file documented as of this encounter Procedures Procedure Name Priority Date/Time Associated Diagnosis Comments DEVICE CHECK - REMOTE Routine 11/01/2023 3:21 PM SENIOR VICE PRESIDENT Sick sinus syndrome (CMS/HCC) (HCC) Atrial paroxysmal tachycardia Pacemaker documented in this encounter Results * DEVICE CHECK - REMOTE (11/01/2023 3:21 PM SENIOR VICE PRESIDENT) Anatomical Region Laterality Modality Other Narrative 12/15/2023 12:[address] [facility] Dual Pacemaker Dx; SSS, PAT. DOI 03/05/[address] Bruno. [place] remote home monitor Q3 mo, Office pacer checks Q6 mo. Noise on RV lead. Battery Advisory. Routine DDD Pacemaker Remote. Transmission attached. Battery status-2.90V, 1.8 years remaining to ANGIE. Stable lead impedances, pacing and sensing thresholds. Presenting rhythm: AP-LADLE FILLER. AP-35 %, LADLE FILLER->99 %. 1 AT/AF episode noted, ??episode was 6 seconds in duration, IEGM demonstrates Atach. 7 Ventricular arrhythmias detected, IEGM demonstrates oversensing noise. Medication: ASA, Lipitor, Lisinopril. Follow up: [place] remote 02/06/2024. Cari Huitron, RN Wilian Olea MD [facility] PROC EDURES Final Result documented in this encounter Visit Diagnoses Diagnosis Sick sinus syndrome (CMS/HCC) (HCC) Sinoatrial node dysfunction Atrial paroxysmal tachycardia (HCC) Paroxysmal supraventricular tachycardia Pacemaker Cardiac pacemaker in situ documented in this encounter Care Teams Serger Relationship Specialty Start Date End Date Rodrick Rincon MD [address] [place], [place] [id number] PCP - General Internal Medicine 02/06/18 07/02/24 documented as of this encounter
--- OUTSIDE RECORDS SUMMARY | 2024-11-29 05:17 | XMS_ITS | Encounter Summary ---
Author Organization [facility] Address [address] [address] Care Team Providers Care Shoulder Sawyer Name Role Phone Rodrick Rincon MD Primary Care Provider [phone] Reason for Visit * Cardiology (Routine) - Closed Specialty Diagnoses / Procedures Referred By Contac t Referred To Contact Diagnoses Sick sinus syndrome (CMS/HCC) (HCC) Atrial paroxysmal tachycardia (HCC) Procedures DEVICE CHECK - REMOTE Wilian Olea MD Phone: tel: fax: [facility] Referral ID Status Reason Start Date Expiration Date Visits Re quested Visits Authorized [id number] Closed 04/11/2022 10/12/2023 1 1 Encounter Details Date Type Department Care Team (Latest Contact Info) Description 09/20/2022 8:15 AM CDT Ancillary Procedure [facility] Cardiology [address] [facility] [address] [place] [phone] Sick sinus syndrome (CMS/HCC) (HCC); Atrial paroxysmal [...] on file 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 DOI 03/05/[address] Bruno. [place] remote home monitor Q3 mo, Office pacer checks Q1 yr. Battery Advisory. Routine Pacemaker remote. Normal device function. Battery function-2.95V, 3.0 years remaining battery life to ANGIE. ?? 03/25/2022 remote report-battery longevity was 10.1 years. Appropriate lead measurements. Presenting rhythm-APVP. AP-45%, CRITICAL CARE CNS->99%. 2 Atrial high rate episodes noted, iegm's Atach, 4 minutes max duration. ? 4 ventricular high rate episodes noted, iegm's over sensing noise noted. Medications; Norvasc, Hydrochlorothiazide, Lisinopril, Lipitor, ASA. See scanned report. Office pacemaker f/u and ROV with Dr Olea scheduled 01/16/2023. Wilian Olea MD [facility] PROC EDURES Final Result documented in this encounter Visit Diagnoses Diagnosis Sick sinus syndrome (CMS/HCC) (HCC) Sinoatrial node dysfunction Atrial paroxysmal tachycardia (HCC) Paroxysmal supraventricular tachycardia History of cardiac pacemaker in situ documented in this encounter Care Teams Shoulder Sawyer Relationship Specialty Start Date End Date Rodrick Rincon MD [address] [place], [place] [id number] PCP - General Internal Medicine 02/06/18 07/02/24 documented as of this encounter
--- OUTSIDE RECORDS SUMMARY | 2024-11-29 05:17 | XMS_ITS | Encounter Summary ---
Author Organization [facility] Address [address] [place] [address] Care Team Providers Care Relay Mechanic Name Role Phone Rodrick Rincon MD Primary Care Provider [phone] Reason for Visit * Reason Comments Follow-up 6 mo f/u Hypertension Sick Sinus Syndrome Device Check Encounter Details Date Type Department Care Team (Late st Contact Info) Description 12/17/2021 2:30 PM DESIGN TEACHER Office Visit [facility] Cardiology [address] [place] [address] Wilian Olea MD [address] [facility] [address] [place] [address] Atrial paroxysmal tachycardia (CMS/HCC) (HCC) (Primary Dx); Primary hypertension; Mixed hyperlipidemia; Sick sinus syndrome (CMS/HCC) (HCC); Pacemaker; Systolic murmur Social History Tobacco Use Types Packs/Day Years Used Date Smoking Tobacco: Former Pipe Smokeless Tobacco: Never Comments:smokes pipe Alcohol Use Standard Drinks/Week Comments Yes 2 (1 standard drink = 0.6 oz pur e alcohol) occassionally Sex and Gender Information Value Date Recorded Sex Assigned at Not on file Legal Sex Male 3:29 AM DESIGN TEACHER Gender Identity Not on file Sexual Orientation Not on file documented as of this encounter Last Filed Vital Signs Vital Sign Reading Time Taken Comments Blood Pressure 130/70 12/17/2021 2:57 PM DESIGN TEACHER Pulse 60 12/17/2021 2:57 PM DESIGN TEACHER Temperature - - Respiratory Rate - - Oxygen Saturation 97% 12/17/2021 2:57 PM DESIGN TEACHER Inhaled Oxygen Concentration - - Weight 77.2 kg (170 lb 1.6 oz) 12/17/2021 2:57 P M DESIGN TEACHER Height 175.3 cm (5' 9 ) 12/17/2021 2:57 PM DESIGN TEACHER Body Mass Index 25.12 12/17/2021 2:57 PM DESIGN TEACHER documented in this encounter Progress Notes * Wilian Olea MD - 12/17/2021 2:30 PM CST [facility] DATE OF VISIT: 12/17/2021 CHIEF COMPLAINT Chief Complaint Patient presents with ??? Follow-up 6 mo f/u ??? Hypertension ??? Sick Sinus Syndrome ??? Device Check ASSESSMENT Diagnoses and all orders for this visit: Atrial paroxysmal tachycardia (CMS/HCC) (HCC) (Primary) - Transthoracic Echo Complete W Doppler/CF; Future Primary hypertension - Transthoracic Echo Complete W Doppler/CF; Future Mixed hyperlipidemia Sick sinus syndrome (CMS/HCC) (HCC) Pacemaker - Transthoracic Echo Complete W Doppler/CF; Future Systolic murmur - Transthoracic Echo Complete W Doppler/CF; Future PLAN/RECOMMENDATIONS 1. BP under fair control goal <140/90mmHg. Continue monitor at home. Monitor BP on routine basis. Call with readings. Continue consistent cardiovascular exercise, weight loss, medication compliance, and low-sodium diet. May change Amlodipine if BP elevated on average. No change at this time. -Continue Amlodipine 2.5mg HCTZ 25mg daily, and Lisinopril 40mg daily 2. [facility] Routine PPM personally reviewed from 12/17/21 normal fxn, >99% SUPERVISOR INSTANT POTATO PROCESSING 50% SVT AT noted, infrequent, underlying CHB. Battery function intact 3. Remains on Stelara for his Crohn's, colonoscopy last week doing well overall 4. More prominent systolic murmur on exam today. 2D Echo to clarify concern for possible mild . Discussed low but potential risk for LV dysfunction due to dysnchrony related to persistent RV pacingas he is dependent. He is not in heart failure. 2d Echo with recommendations to follow. 5. No palps suggestive of significant PAT. Monitor burden on PPM check.stable only 5 PSVT over pastyear. 6. Lipids personally reviewed 12/17/21 LDL 105 HDL 91, well controlled goal LDL<100. Continue Atorvastatin 20mg qhs and lifestyle modification. -12 lead EKG today personally reviewed electronic ventricular pacing, atrial sensed rhythm Over 50% of this visit counseling SSS/PPM, HTN, lipids, medications, lifestyle modification. Follow up in the office in 6 months or sooner as needed. Thank you for allowing me the privilege of participating in the care this very pleasant patient. Please do not hesitate to contact me with any additional questions or concerns. HPI Dinesh Saha is a 81 y.o. male with a PMHx of Crohn's [...] episodes. He denies any prior history of [place], angina, CHF or arrhythmias. He has reasonable [...] 120's. c/o tinnitus x year at least. Trung meds, no ill effects. No edema or [...] at home 110-140 w/ 130's on avg. Trung HCTZ I saw him in the office [...] having back surgery with Dr. Robert at [facility] in early October. He denies chest pain, palpitations, syncope or near syncope. We received a remote download from his Arynga and it was reviewed by Felisa Olea [...] well, no dizziness, CP, SOB or palps. Trung meds, following BP and HR closely. 05/15/19 Feeling well, occ dizziness no falls. No CP or palpitations or real SOB. Interested in maybe taking CBD oil for joint pains. NO bleeding Crohns under control with Stelara. HAd lipids done at [facility]. 11/22/19 Doing fairly well, BP better after stopping Tylenol he notes as he meticulously tracks hisBP. No bleeding, dizziness, falls or CP. Still taking ASA 81mg daily. 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 No [...] SOB, CP or palps, no dizziness, edema. Trung meds. MEDICAL HISTORY Past Medical History: Diagnosis Date [...] tablet aspirin 81 mg enteric coated tablet yhexysz-zbwikvzvknufj-dgiowtlc (EXCEDRIN MIGRAINE) 250-250-65 mg per tablet atorvastatin (LIPITOR) 20 mg tablet b complex vitamins (B COMPLEX-VITAMIN B12) tablet biotin 5,000 mcg tablet,disintegrating calcium carbonate-vitamin D3 (CALCIUM 500 + D) 500 mg(1,250mg) -400 unit tablet cholecalciferol (VITAMIN D3) 2,000 unit tablet clonazePAM (KlonoPIN) 0.5 mg tablet coenzyme D16-zbusekk E (CO Q-10, WITH VIT E,) 100-5 mg-unit capsule docusate sodium (DOK) 100 mg capsule folic acid (FOLVITE) 400 mcg tablet jieaxr-uca-O-Mn-herb#21 (GLUCOSAMINE-MSM COMPLEX) tablet hydroCHLOROthiazide (HYDRODIURIL) 25 mg tablet iron bisgly,ps-FA-B-C#12-succ (IROSPAN 24/6) 65 mg-65 mg -1,000 mcg (24) tablet lisinopriL (PRINIVIL,ZESTRIL) 40 mg tablet meclizine (ANTIVERT) 25 mg tablet melatonin 5 mg tablet multivitamin tablet tablet omega-3 fatty acids-vitamin E (FISH OIL) 1,000 mg capsule ondansetron ODT (ZOFRAN-ODT) 4 mg disintegrating tablet ustekinumab (STELARA) injection white petrolatum-mineral oil (eucerin) cream ALLERGIES No [...] for environmental allergies. PHYSICAL EXAM Vitals BP 130/70 (BP Location: Left arm, Patient Position: Sitting) Pulse 60 Ht 175.3 cm (5' 9 ) Wt 77.2 kg (170 lb 1.6 oz) SpO2 97% BMI 25.12 kg/m?? Weight: 77.2 kg (170 lb 1.6 oz) Height: 175.3 cm (5' 9 ) Body mass index is 25.12 kg/m??. Physical Exam Vitals reviewed. Constitutional: General: He is not in acute distress. Appearance: He is well-developed. He is not diaphoretic. HENT: Head: Normocephalic and atraumatic. Right Ear: [...] visit with results is: Office Visit on 12/02/2020 Component Date Value Ref Range Status ??? Cholesterol, POC 12/02/2020 209 mg/dL Final ??? HDL, POC 12/02/2020 100 mg/dL Final ??? Triglycerides, POC 12/02/2020 86 mg/dL Final ??? LDL, Direct, POC 12/02/2020 91 mg/dL Final ??? Chol/HDL Ratio, POC 12/02/2020 N/A Final ??? Non-HDL Cholesterol, POC 12/02/2020 N/A mg/dL Final ??? Cholesterol Total, POC 12/02/2020 209 mg/dL Final Results for orders placed or performed in visit on 12/02/20 POCT lipid panel Result Value Ref Range Cholesterol, POC 209 mg/dL HDL, POC 100 mg/dL Triglycerides, POC 86 mg/dL LDL, Direct, POC 91 mg/dL Chol/HDL Ratio, POC N/A Non-HDL Cholesterol, POC N/A mg/dL Cholesterol Total, POC 209 mg/dL 03/09/[address] [facility] Dual Pacemaker Dx; SSS, PAT. DOI 03/05/[address] Bruno[address] [place]ry[place]a remote home monitor Q3 mo, Office pacer checks Q1 yr. ?? Routine Pacemaker remote. Normal device function. Battery function-2.99V, 10.8 years estimated remaining longevity. Appropriate lead measurements. Presenting rhythm-APVP. AP-45%, SUPERVISOR INSTANT POTATO PROCESSING->99%. 4 Atrial high rate episodes noted, max duration 2 min. No ventricular high rate episodes noted. Medications; Norvasc, Hydrochlorothiazide, Lisinopril, Lipitor, ASA. See scanned report. Casey remote f/u 06/08/2021. Personally reviewed EKG, Echocardiogram, pacemaker checks, and bloodwork/lipids. Nando [facility] MD, [facility] GN TEACHER documented in this encounter Miscellaneous Notes * Addendum Note - Julianna Craft MA - 12/17/2021 2:30 PM CSTAddended by: JULIANNA CRAFT on: 12/20/2021 04:00 PM Modules accepted: Orders GN TEACHER documented in this encounter Plan of Treatment Not on file documented as of this encounter Procedures Procedure Name Priority Date/Time Associated Diagnosis Comments POCT LIPID PANEL Routine 12/17/2021 3:51 PM DESIGN TEACHER Mixed hyperlipidemia ECG 12-LEAD Routine 12/17/2021 Atrial paroxysmal tachycardia (CMS/HCC) (HCC) documented in this encounter Results * POCT lipid panel (12/17/2021 3:51 PM DESIGN TEACHER) Cholesterol, POC 214 mg/dL Comment:GLU = 87 HDL, POC 91 mg/dL Triglycerides, POC 92 mg/dL LDL Cholesterol POC 105 mg/dL Chol/HDL Ratio, POC 2.4 Non-HDL Cholesterol, POC 123 mg/dL Cholesterol Total, POC 214 mg/dL Capillary blood 12/17/2021 3 :51 PM DESIGN TEACHER us Wilian Olea MD POINT OF CARE TEST ORDER GOGO Final Result * ECG 12 lead (12/17/2021) us Wilian Olea MD ECG ORDERABLES Final Re sult documented in this encounter Visit Diagnoses Diagnosis Atrial paroxysmal tachycardia (HCC)- Primary Paroxysmal supraventricular tachycardia Primary hypertension Unspecified essential hypertension Mixed hyperlipidemia Sick sinus syndrome (CMS/HCC) (HCC) Sinoatrial node dysfunction Pacemaker Cardiac pacemaker in situ Systolic murmur Undiagnosed cardiac murmurs documented in this encounter Care Teams Relay Mechanic Relationship Specialty Start Date End Date Rodrick Rincon MD [address] [place] [address] PCP - General Internal Medicine 02/06/18 07/02/24 documented as of this encounter
--- OUTSIDE RECORDS SUMMARY | 2024-11-29 05:17 | XMS_ITS | Encounter Summary ---
Author Organization [facility] Address [address] [address] Care Team Providers Care Central Service Technician Name Role Phone Rodrick Rincon MD Primary Care Provider [phone] Reason for Referral * Cardiology (Routine) - Closed Specialty Diagnoses / Procedures Referred By Contac t Referred To Contact Diagnoses Sick sinus syndrome (CMS/HCC) (HCC) Atrial paroxysmal tachycardia (HCC) Procedures DEVICE CHECK - REMOTE Wilian Olea MD Phone: tel: fax: [facility] Referral ID Status Reason Start Date Expiration Date Visits Re quested Visits Authorized [id number] Closed 06/24/2021 07/24/2022 1 1 * Cardiology (Routine) - Closed Specialty Diagnoses / Procedures Referred By Contac t Referred To Contact Diagnoses Sick sinus syndrome (CMS/HCC) (HCC) Atrial paroxysmal tachycardia (HCC) Procedures DEVICE CHECK - REMOTE Wilian Olea MD Phone: tel: fax: [facility] Referral ID Status Reason Start Date Expiration Date Visits Re quested Visits Authorized [id number] Closed 06/24/2021 07/24/2022 1 1 * Cardiology (Routine) - Closed Specialty Diagnoses / Procedures Referred By Contac t Referred To Contact Diagnoses Sick sinus syndrome (CMS/HCC) (HCC) Atrial paroxysmal tachycardia (HCC) Procedures DEVICE CHECK - REMOTE Wilian Olea MD Phone: tel: fax: [facility] Referral ID Status Reason Start Date Expiration Date Visits Re quested Visits Authorized [id number] Closed 06/24/2021 07/24/2022 1 1 Encounter Details Date Type Department Care Team (Late st Contact Info) Description 06/24/2021 Orders Only [facility] Cardiology [address] [place], [place] [address], [place] [address] Wilian Olea MD [address] [place] [address] [address] [place] [address] Sick sinus syndrome (CMS/HCC) (HCC) [...] on file Legal Sex Male 3:29 AM POST ANESTHESIA CARE UNIT NURSE Gender Identity Not on file Sexual Orientation Not on file documented as of this encounter Plan of Treatment Not on file documented as of this encounter Results * DEVICE CHECK - REMOTE (06/22/2022 10:36 AM CDT) Anatomical Region Laterality Modality Other Narrative 08/16/2022 5:[address] [facility] Dual Pacemaker Dx; SSS, PAT. DOI 03/05/[address] Bruno. [place] remote home monitor Q3 mo, Office pacer checks Q1 yr. Battery Advisory. Routine Pacemaker remote. Normal device function. Battery function-2.96V, 3.3 years remaining battery life to ANGIE. ?? 03/25/2022 remote report-battery longevity was 10.1 years. Appropriate lead measurements. Presenting rhythm-APVP. AP-43%, SPOT MAN->99%. No Atrial high rate episodes noted. ? No ventricular high rate episodes noted. Medications; Norvasc, Hydrochlorothiazide, Lisinopril, Lipitor, ASA. See scanned report. [place] remote f/u 09/20/2022. Wilian Olea MD [facility] PROC EDURES Final Result * DEVICE CHECK - REMOTE (03/25/2022 9:53 AM CDT) Anatomical Region Laterality Modality Other Narrative 05/05/2022 2:[address] [facility] Dual Pacemaker Dx; SSS, PAT. DOI 03/05/[address] Bruno[address] [place] remote home monitor Q3 mo, Office pacer checks Q1 yr. ?? Routine Pacemaker remote. Normal device function. Battery function-2.96V, 10.1 years remaining battery life to ANGIE. ?? Appropriate lead measurements. ?? Presenting rhythm-APVP. AP-43%, SPOT MAN->99%. ?? No Atrial high rate episodes noted. ? No ventricular high rate episodes noted. ?? Medications; Norvasc, Hydrochlorothiazide, Lisinopril, Lipitor, ASA. See scanned report. ?? Office pacemaker f/u and ROV with Dr Olea scheduled 06/21/2022. Wilian Olea MD [facility] CARDIAC SERVICES PROC EDURES Final Result * DEVICE CHECK - REMOTE (09/15/2021 2:59 PM CDT) Anatomical Region Laterality Modality Other Narrative 10/25/2021 8:08 AM POST ANESTHESIA CARE UNIT NURSE [facility] Dual Pacemaker Dx; SSS, PAT. DOI 03/05/[address] Bruno[address] [place] remote home monitor Q3 mo, Office pacer checks Q1 yr. ?? Routine Pacemaker remote. Normal device function. Battery function-2.98V, 10.6 years remaining battery life to ANGIE. ?? Appropriate lead measurements. ?? Presenting rhythm-ASVP. AP-47%, SPOT MAN->99%. ?? 2 Atrial high rate episodes noted, 6-56 seconds. ?? No ventricular high rate episodes noted. ?? Medications; Norvasc, Hydrochlorothiazide, Lisinopril, Lipitor, ASA. See scanned report. ?? Office pacemaker f/u and ROV with Dr Olea scheduled 12/17/2021. Wilian Olea MD [facility] CARDIAC SERVICES PROC [...] tachycardia History of cardiac pacemaker in situ Sick sinus syndrome (CMS/HCC) (HCC) Sinoatrial node dysfunction Atrial paroxysmal tachycardia (HCC) Paroxysmal supraventricular tachycardia Pacemaker Cardiac pacemaker in situ documented in this encounter Care Teams Central Service Technician Relationship Specialty Start Date End Date Rodrick Rincon MD [address] [place] [address] PCP - General Internal Medicine 02/06/18 07/02/24 documented as of this encounter
--- OUTSIDE RECORDS SUMMARY | 2024-11-29 05:17 | XMS_ITS | Encounter Summary ---
Author Organization [facility] Healthcare Address [address] [place] [address] Care Team Providers Care Food And Drink Factory Workers Name Role Phone Rodrick Rincon MD Primary Care Provider [phone] Encounter Details Date Type Department Care Team (Late st Contact Info) Description 09/04/2023 Telephone [facility] Group Cardiology [address] [place] [address] Wilian Olea MD [address] [place] [address] Social History Tobacco Use Types Packs/Day Years Used Date Smoking Tobacco: Former Pipe Smokeless Tobacco: Never Comments:smokes pipe Alcohol Use Standard Drinks/Week Comments Yes 2 (1 standard drink = 0.6 oz pur e alcohol) occassionally Sex and Gender Information Value Date Recorded Sex Assigned at Not on file Legal Sex 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 Pt verbalizes understanding, requesting refill. Refill sent. * Telephone Encounter - Wilian Olea MD - 09/04/2023 3:21 PM CDT He could increase amlodipine to 5 mg daily and observe BP response. * Telephone Encounter - Julianna Cage RN - 09/04/2023 2:04 PM CDT Spoke with pt, pt reports that Monday evening his bp was 180/90, which made him anxious and he went to ER. Pt states he has been checking his bp a few hours after his morning medications (see below). Pt denies any symptoms other than anxiety because his bp has been elevated. I advised pt to only check once a day about 1-2 hours after medications to reduce anxiety. Continue to keep a log and call with any symptoms. Pt would like to know if AD has any recommendations. Will forward to AD. Pleaseadvise. Pt medication list verified. 08/31 140/70 09/01 157/76 09/02 119/62 09/03 148/80 09/04 150/70 * Telephone Encounter - Shuana Rodriguez - 09/04/2023 1:25 PM CDT Pt called to inform AD that he went to [facility] on Monday09/02/23 due to BP being elevated. Pt also had an anxiety attack. Pt is requesting a call back [phone] documented in this encounter Plan of Treatment Not on file documented as of this encounter Visit Diagnoses Not on filedocumented in this encounter Discontinued Medications Medication Sig Discontinue Reason Start Date End Da te amLODIPine (NORVASC) 2.5 mg tablet Take 1 tablet (2.5 mg total) by mouth daily Reorder 06/15/2023 09/04/2023 documented as of this encounter Care Teams Food And Drink Factory Workers Relationship Specialty Start Date End Date Rodrick Rincon MD [address] [place], [place] [id number] PCP - General Internal Medicine 02/06/18 07/02/24 documented as of this encounter
--- OUTSIDE RECORDS SUMMARY | 2024-11-29 05:17 | XMS_ITS | Encounter Summary ---
Author Organization [facility] Address [address] [place] [address] Care Team Providers Care Winemaker Name Role Phone Rodrick Rincon MD Primary Care Provider [phone] Reason for Visit * Cardiology (Routine) - Closed Specialty Diagnoses / Procedures Referred By Contac t Referred To Contact Diagnoses Sick sinus syndrome (CMS/HCC) (HCC) Atrial paroxysmal tachycardia (HCC) Pacemaker Procedures DEVICE CHECK - IN OFFICE Wilian Olea MD Phone: tel: fax: [facility] Referral ID Status Reason Start Date Expiration Date Visits Re quested Visits Authorized [id number] Closed 01/19/2023 02/18/2024 1 1 Encounter Details Date Type Department Care Team (Latest Contact Info) Description 07/26/2023 4:00 PM CDT Ancillary Procedure [facility] Medical [facility] Cardiology [address] [place] [address] CHB (complete heart block) (CMS/HCC) (HCC) (Primary Dx); Sick sinus syndrome (CMS/HCC) (HCC); Atrial paroxysmal tachycardia (CMS/HCC) (HCC); Pacemaker Social History Tobacco Use Types Packs/Day Years Used Date Smoking Tobacco: Former Pipe Smokeless Tobacco: Never Comments:smokes pipe Alcohol Use Standard Drinks/Week Comments Yes 2 (1 standard drink = 0.6 oz pur e alcohol) occassionally Sex and Gender Information Value Date Recorded Sex Assigned at Not on file Legal 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 DOI 03/05/[address] Bruno[address] [place] remote home monitor Q3 mo, Office pacer checks Q1 yr. ? Battery Advisory. Supervising MD: Dr Olea. Patient seen in device clinic d/t noise noted on ventricular lead. Office DDD Pacemaker evaluation demonstrated appropriate device function. Left pectoral incision well healed without signs of infection noted. Battery function-2.92V, 2.1 years remaining battery life to ANGIE. Appropriate lead measurements noted. Ventricular lead measurements; sensing 9.0 mV, impedance 540 ohms, pacing threshold 0.75V@0.4ms. RV lead is stable. Patient performed isometric exercises and pocket manipulation was able to reproduce a minimal amount of noise on RV channel. Presenting rhythm-ASVP. Underlying rhythm-CHB with ventricular intrinsic noted. Not pacemaker dependent today. AP-44%, POLYETHYLENE BAG MACHINE OPERATOR->99%. Atrial high rate episodes noted. Ventricular high rate episodes noted. Medications; ASA 81 mg, Lisinopril. Ventricular sensitivity changed from 2.0 mV to 3.0 mV. After sensitivity adjustment patient performed isometric exercises and was unable to reproduce noise on RV channel. Will continue to monitor. See scanned report. Patient scheduled for CxR and order printed and given to patient. Dinesh will return @ later time to [facility] for CxR. Office device f/u to be scheduled when patient sees Dr Olea in August. [facility] f/u 10/31/2023. Cari Huitron, RN Wilian Olea MD [facility] CARDIAC SERVICES PROC EDURES Final Result documented in this encounter Visit Diagnoses Diagnosis CHB (complete heart block) (CMS/HCC) (HCC)- Primary Atrioventricular block, complete Sick sinus syndrome (CMS/HCC) (HCC) Sinoatrial node dysfunction Atrial paroxysmal tachycardia (HCC) Paroxysmal supraventricular tachycardia Pacemaker Cardiac pacemaker in situ documented in this encounter Care Teams Winemaker Relationship Specialty Start Date End Date Rodrick Rincon MD [address] [place], [place] [id number] PCP - General Internal Medicine 02/06/18 07/02/24 documented as of this encounter
--- OUTSIDE RECORDS SUMMARY | 2024-11-29 05:17 | XMS_ITS | Encounter Summary ---
Author Organization [facility] Address [address] [place] [address] Phone Care Team Providers Care District Plant Engineer Name Role Phone Rodrick Rincon MD Primary Care Provider [phone] Encounter Details Date Type Department Care Team (Late st Contact Info) Description 08/26/2021 Orders Only [facility] Orthopaedic Surgery [address] [place] [address] Miller Varela MD [address] [place], [place] [id number] Sacroiliac joint pain (Primary Dx); Chronic bilateral low back pain without sciatica Social History Tobacco Use Types Packs/Day Years Used Date Smoking Tobacco: Former Pipe Smokeless Tobacco: Never Comments:smokes pipe Alcohol Use Standard Drinks/Week Comments Yes 2 (1 standard drink = 0.6 oz pur e alcohol) occassionally Sex and Gender Information Value Date Recorded Sex Assigned at Not on file Legal Sex Male 3:29 AM FLIGHT AGENT Gender Identity Not on file Sexual Orientation Not on file documented as of this encounter Plan of Treatment Not on file documented as of this encounter Visit Diagnoses Diagnosis Sacroiliac joint pain- Primary Disorders of sacrum Chronic bilateral low back pain without sciatica documented in this encounter Care Teams District Plant Engineer Relationship Specialty Start Date End Date Rodrick Rincon MD [address] [address] PCP - General Internal Medicine 02/06/18 07/02/24 documented as of this encounter
--- OUTSIDE RECORDS SUMMARY | 2024-11-29 05:17 | XMS_ITS | Encounter Summary ---
Author Organization [facility] Address [address] [address] Care Team Providers Care Woods Laborer Name Role Phone Rodrick Rincon MD Primary Care Provider [phone] Reason for Visit * Cardiology (Routine) - Closed Specialty Diagnoses / Procedures Referred By Contac t Referred To Contact Diagnoses Sick sinus syndrome (CMS/HCC) (HCC) Atrial paroxysmal tachycardia (HCC) Procedures DEVICE CHECK - REMOTE Wilian Olea MD Phone: tel: fax: [facility] Referral ID Status Reason Start Date Expiration Date Visits Re quested Visits Authorized [id number] Closed 06/24/2021 07/24/2022 1 1 Encounter Details Date Type Department Care Team (Latest Contact Info) Description 06/21/2022 9:30 AM CDT Ancillary Procedure [facility] Cardiology [address] [facility] [address] [place] [phone] Sick sinus syndrome (CMS/HCC) (HCC); Atrial paroxysmal [...] on file Legal 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 DOI 03/05/[address] Bruno[address] [employer] remote home monitor Q3 mo, Office pacer checks Q1 yr. Battery Advisory. Routine Pacemaker remote. Normal device function. Battery function-2.96V, 3.3 years remaining battery life to ANGIE. ?? 03/25/2022 remote report-battery longevity was 10.1 years. Appropriate lead measurements. Presenting rhythm-APVP. AP-43%, CIGARETTE TESTER->99%. No Atrial high rate episodes noted. ? No ventricular high rate episodes noted. Medications; Norvasc, Hydrochlorothiazide, Lisinopril, Lipitor, ASA. See scanned report. Casey remote f/u 09/20/2022. Wilian Olea MD CV CARDIAC SERVICES PROC EDURES Final Result documented in this encounter Visit Diagnoses Diagnosis Sick sinus syndrome (CMS/HCC) (HCC) Sinoatrial node dysfunction Atrial paroxysmal tachycardia (HCC) Paroxysmal supraventricular tachycardia Pacemaker Cardiac pacemaker in situ documented in this encounter Care Teams Woods Laborer Relationship Specialty Start Date End Date Rodrick Rincon MD [address] [place] [address] PCP - General Internal Medicine 02/06/18 07/02/24 documented as of this encounter
--- OUTSIDE RECORDS SUMMARY | 2024-11-29 05:17 | XMS_ITS | Encounter Summary ---
Author Organization [facility] Address [address] [place] [address] Care Team Providers Care Furnace Hand Name Role Phone Rodrick Rincon MD Primary Care Provider [phone] Reason for Referral * Cardiology (Routine) - Closed Specialty Diagnoses / Procedures Referred By Contac t Referred To Contact Diagnoses Benign hypertension Atrial paroxysmal tachycardia (HCC) Complete atrioventricular block (CMS/HCC) (HCC) Pacemaker lead malfunction, subsequent encounter Systolic murmur Procedures Transthoracic Echo (TTE) Complete W Doppler/CF Margie Olea MD Phone: tel: fax: [facility] Referral ID Status Reason Start Date Expiration Date Visits Re quested Visits Authorized [id number] Closed 01/10/2024 02/08/2025 1 1 T TIRE REPAIRER Reason for Visit * Reason Comments Follow-up 3-4 mo f/u Sick Sinus Syndrome Hypertension Pacemaker in place Encounter Details Date Type Department Care Team (Latest Contact Info) Description 01/10/2024 2:30 PM GIANT TIRE REPAIRER Office Visit [facility] Cardiology [address] [facility] [address] [place] [address] Margie Olea MD [address] [facility] [address] [facility] [place] [id number] Benign hypertension (Primary Dx); Systolic murmur; Atrial paroxysmal tachycardia (CMS/HCC) (HCC); Mixed hyperlipidemia; Complete atrioventricular block (CMS/HCC) (HCC); Pacemaker lead malfunction, subsequent encounter; History of cardiac pacemaker in situ Social History Tobacco Use Types Packs/Day Years Used Date Smoking Tobacco: Former Pipe Smokeless Tobacco: Never Comments:smokes pipe Alcohol Use Standard Drinks/Week Comments Yes 2 (1 standard drink = 0.6 oz pur e alcohol) occassionally Sex and Gender Information Value Date Recorded Sex Assigned at Not on file Legal Sex Male 3:29 AM GIANT TIRE REPAIRER Gender Identity Not on file Sexual Orientation Not on file documented as of this encounter Last Filed Vital Signs Vital Sign Reading Time Taken Comments Blood Pressure 138/60 01/10/2024 2:36 PM GIANT TIRE REPAIRER Pulse 74 01/10/2024 2:36 PM GIANT TIRE REPAIRER Temperature - - Respiratory Rate - - Oxygen Saturation 97% 01/10/2024 2:36 PM GIANT TIRE REPAIRER Inhaled Oxygen Concentration - - Weight 75.5 kg (166 lb 6.4 oz) 01/10/2024 2:36 P M GIANT TIRE REPAIRER Height 175.3 cm (5' 9 ) 01/10/2024 2:36 PM GIANT TIRE REPAIRER Body Mass Index 24.57 01/10/2024 2:36 PM GIANT TIRE REPAIRER documented in this encounter Progress Notes * Margie Olea MD - 01/10/2024 2:30 PM CST [facility] DATE OF VISIT: 01/10/2024 CHIEF COMPLAINT Chief Complaint Patient presents with Follow-up 3-4 mo f/u Sick Sinus Syndrome Hypertension Pacemaker in place ASSESSMENT Diagnoses and all orders for this visit: Benign hypertension (Primary) - Transthoracic Echo (TTE) Complete W Doppler/CF; Future Systolic murmur - Transthoracic Echo (TTE) Complete W Doppler/CF; Future Atrial paroxysmal tachycardia (CMS/HCC) (HCC) - Transthoracic Echo (TTE) Complete W Doppler/CF; Future Mixed hyperlipidemia Complete atrioventricular block (CMS/HCC) (HCC) - Transthoracic Echo (TTE) Complete W Doppler/CF; Future Pacemaker lead malfunction, subsequent encounter - Transthoracic Echo (TTE) Complete W Doppler/CF; Future History of cardiac pacemaker in situ PLAN/RECOMMENDATIONS 1. BP controlled, on repeat check, variable but generally controlled, goal <140/90mmHg. Continuemonitor at home. Monitor BP on routine basis. Call with readings. Continue consistent cardiovascular exercise, weight loss, medication compliance, and low-sodium diet. -Continue Amlodipine 5mg daily, HCTZ 25mg daily, and Lisinopril 40mg daily 2. [facility]rick Routine PPM personally reviewed from 11/2023 check, Right ventricular noise. AP 35%, MACHINE STOPPAGE FREQUENCY CHECKER >99% no SVT AT noted this check. Underlying CHB. RV impedance stable. However, if RV lead function/integrity results in unacceptable safety this would take precedence at the appropriate time. Patient verbalized understanding and agreed with plan of care. Counseled to monitor for near- syncope, syncope, declining activity tolerance / bradycardia and if noted present to nearest ER via EMS immediately. 3. Remains on Stelara for his Crohn's. 4. 2D Echo 02/2022 EF 65-70% stable no . No heart failure. Monitor for now. If new sxs or concernsrepeat Echo to assess for evidence of given murmur. -discussed once again later this year to reassess AV give murmur suggestive of . He agrees. 5. No significant palps suggestive of significant PAT. Monitor burden on PPM check. Stable at this time, no recurrent events. 6. Lipids personally reviewed 01/10/24 LDL 96 HDL >100, well controlled goal LDL<100. ContinueAtorvastatin [...] with any additional questions or concerns. HPI Wander Fierro is a 83 y.o. 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 Bruno. OLD RECORDS: Crohn's disease, remote history of? Pericarditis, dyslipidemia, SSS with AV block and CHB 7.5sec pause s/p St. Kendrick DC PPM by Dr. Kiana Varela 03/05/2015 previously has been referred for preoperative cardiovascular evaluation for upcoming prostate surgery for CA prostate. Patient gives remote history of pericarditis in 1980s, no recurrent episodes. He denies any prior history of MT, angina, CHF or arrhythmias. He has reasonable [...] [facility] at [facility] in early October. He denies chest pain, palpitations, syncope or near syncope. We received a remote download from his [employer] and it was reviewed by Felisa Olea [...] control with Stelara. HAd lipids done at [facility]. 11/22/19 Doing fairly well, BP better after stopping Tylenol he notes as he meticulously tracks hisBP. No bleeding, dizziness, falls or CP. Still taking ASA 81mg daily. 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 No [...] but no recent falls, declining activity tolerance. 09/25/23 taking BP very frequently he admits was adding to his stress so reduced to three times daily and not obsessing. BP variable highest readings mid afternoon as high as 160 typically overall around 130mmHg. He feels fine, no CP or SOB. No near syncope or syncope. No palps. No edema. Feels well otherwise. 01/10/24 Feeling fine, BP at home well controlled on diary. He is worried about PPM battery. No CP, SOB or palps. No Dizziness. MEDICAL HISTORY Past Medical History: Diagnosis Date Anemia Cancer (CMS/HCC) (HCC) prostate cancer Colon polyp Crohn's disease (CMS/HCC) (HCC) HX OTHER MEDICAL Crohn's disease HX OTHER MEDICAL Dyslipidemia HX OTHER MEDICAL ca prostate HX OTHER MEDICAL ? Pericarditis Hyperlipidemia Hypertension Migraines Pacemaker Social History Tobacco Use Smoking status: Former Smoker Types: Pipe Smokeless tobacco: Never Used Tobacco comment: smokes pipe Substance Use Topics Alcohol use: Yes Alcohol/week: 2.0 standard drinks Types: 2 Cans of beer per week Comment: occassionally Drug use: No Family History Problem Relation Age of Onset Alzheimer's disease Mother MEDICATIONS HOME MEDICATIONS : acetaminophen (PAIN RELIEVER) 500 mg capsule amLODIPine (NORVASC) 5 mg tablet aspirin 81 mg enteric coated tablet mvanwhn-juanuylnuzgnc-lwaliixu (EXCEDRIN MIGRAINE) 250-250-65 mg per tablet atorvastatin (LIPITOR) 20 mg tablet B6/folic/B12/coffee/phosphatid (NEURIVA PLUS BRAIN PERFORMANCE ORAL) biotin 5,000 mcg tablet,disintegrating calcium carbonate-vitamin D3 (CALCIUM 500 + D) 500 mg(1,250mg) -400 unit tablet cholecalciferol (VITAMIN D3) 2,000 unit tablet clonazePAM (KlonoPIN) 0.5 mg tablet coenzyme G09-icfxhdy E (CO Q-10, WITH VIT E,) 100-5 mg-unit capsule docusate sodium (DOK) 100 mg capsule folic acid (FOLVITE) 400 mcg tablet iqeunv-muj-H-Mn-herb#21 (GLUCOSAMINE-MSM COMPLEX) tablet hydroCHLOROthiazide (HYDRODIURIL) 25 mg [...] Review of Systems Constitutional: Positive for weight gain. Negative for decreased appetite, diaphoresis, fever, malaise/fatigue, night sweats and weight loss. HENT: Negative for hearing loss and nosebleeds. [...] and are negative. PHYSICAL EXAM Vitals BP 138/60 (BP Location: Left arm, Patient Position: Sitting) Pulse 74 Ht 175.3 cm (5' 9 ) Wt 75.5 kg (166 lb 6.4 oz) SpO2 97% BMI 24.57 kg/m?? Weight: 75.5 kg (166 lb 6.4 oz) Height: 175.3 cm (5' 9 ) Body mass index is 24.57 kg/m??. Physical Exam Vitals reviewed. Constitutional: General: [...] normal. Heart sounds not distant. Murmur heard. High-pitched midsystolic murmur is present with a grade of 3/6 at the upper right sternal border. No friction rub. No gallop. No S3 [...] 01/16/2023 Component Date Value Ref Range Status Cholesterol, POC 01/16/2023 176 mg/dL Final HDL, POC 01/16/2023 >100 mg/dL Final Triglycerides, POC 01/16/2023 86 mg/dL Final LDL, Direct, POC 01/16/2023 58 mg/dL Final Chol/HDL Ratio, POC 01/16/2023 N/A Final Non-HDL Cholesterol, POC 01/16/2023 N/A mg/dL Final Cholesterol Total, POC 01/16/2023 176 mg/dL Final [...] longevity. Appropriate lead measurements. Presenting rhythm-APVP. AP-45%, MACHINE STOPPAGE FREQUENCY CHECKER->99%. 4 Atrial high rate episodes noted, max duration 2 min. No ventricular high rate episodes noted. Medications; Norvasc, Hydrochlorothiazide, Lisinopril, Lipitor, ASA. See scanned report. Casey remote f/u 06/08/2021. 05/05/[address] [facility]rick Dual Pacemaker Dx; SSS, PAT. DOI 03/05/[address] Bruno[address] [employer] remote home monitor Q3 mo, Office pacer checks Q1 yr. Routine Pacemaker remote. Normal device function. Battery function-2.96V, 10.1 years remaining battery life to ANGIE. Appropriate lead measurements. Presenting rhythm-APVP. AP-43%, MACHINE STOPPAGE FREQUENCY CHECKER->99%. No Atrial high rate episodes noted. No ventricular high rate episodes noted. Medications; Norvasc, Hydrochlorothiazide, Lisinopril, Lipitor, ASA. See scanned report. Office pacemaker f/u and ROV with Dr Olea scheduled 06/21/2022. 03/18/22 2D Echo ([facility]): EF 65-75% mild LVH no mod BOOKER trvisial TR, trivial MR jaleel kahn on bubble study 04/25/23 PM CHECK (REMOTE) Patient ID: Wander Fierro is a 83 y.o. male This patient [...] to ANGIE Episodes last 90 days/Comments: AF [place] 0 % 8 HVR episodes- stored episodes [...] appropriate for device measurements Julianna Aponte RN 07/28/23 [facility] Kendrick Dual Pacemaker Dx; SSS, PAT. DOI 03/05/[address] Bruno[address] [employer] remote home monitor Q3 mo, Office pacer checks Q1 yr. Battery Advisory. Supervising MD: Dr Olea. Patient seen in device clinic d/t noise noted on ventricular lead. Office DDD Pacemaker evaluation demonstrated appropriate device function. Left pectoral incision well healed without signs of infection noted. Battery function-2.92V, 2.1 years remaining battery life to ANGIE. Appropriate lead measurements noted. Ventricular lead measurements; sensing 9.0 mV, impedance 540 ohms, pacing threshold 0.75V@0.4ms. RVlead is stable. Patient performed isometric exercises and pocket manipulation was able to reproduce a minimal amount of noise on RV channel. Presenting rhythm-ASVP. Underlying rhythm-CHB with ventricular intrinsic noted. Not pacemaker dependent today. AP-44%, MACHINE STOPPAGE FREQUENCY CHECKER->99%. Atrial high rate episodes noted. Ventricular high rate episodes noted. Medications; ASA 81 mg, Lisinopril. Ventricular sensitivity changed from 2.0 mV to 3.0 mV. After sensitivity adjustment patient performed isometric exercises and was unable to reproduce noise on RV channel. Will continue to monitor. See scanned report. Patient scheduled for CxR and order printed and given to patient. Wander will return @ later time to [facility] for CxR. Office device f/u to be scheduled when patient sees Dr Olea in August. [facility] f/u 10/31/2023. 12/15/23 [facility]rick Dual Pacemaker Dx; SSS, PAT. DOI 03/05/[address] Bruno[address] [place] remote home monitor Q3 mo, Office pacer checks Q6 mo. Noise on RV lead. Battery Advisory. Routine DDD Pacemaker Remote. Transmission attached. Battery status-2.90V, 1.8 years remaining to ANGIE. Stable lead impedances, pacing and sensing thresholds. Presenting rhythm: AP-MACHINE STOPPAGE FREQUENCY CHECKER. AP-35 %, MACHINE STOPPAGE FREQUENCY CHECKER->99 %. 1 AT/AF episode noted, episode was 6 seconds in duration, IEGM demonstrates Atach. 7 Ventricular arrhythmias detected, IEGM demonstrates oversensing noise. Medication: ASA, Lipitor, Lisinopril. Follow up: [facility] 02/06/2024. Personally reviewed EKG, Echocardiogram, pacemaker checks, and bloodwork/lipids. Nando Olea MD, [facility] T TIRE REPAIRER documented in this encounter Miscellaneous Notes * Addendum Note - Julianna Craft MA - 01/10/2024 2:30 PM CSTAddended by: JULIANNA CRAFT on: 01/23/2024 08:10 AM Modules accepted: Orders T TIRE REPAIRER documented in this encounter Plan of Treatment Not on file documented as of this encounter Procedures Procedure Name Priority Date/Time Associated Diagnosis Comments POCT LIPID PANEL Routine 01/10/2024 8:09 AM GIANT TIRE REPAIRER Mixed hyperlipidemia documented in this encounter Results * TRANSTHORACIC ECHO (TTE) COMPLETE W DOPPLER/CF WO CONTRAST (07/03/2024 1:53 PM CDT) Anatomical Region Laterality Modality Ultrasound 07/03/2024 1:31 PM CDT Narrative 07/03/2024 2:58 PM CDT [facility] Cardiology [address] [facility] [address], [place] [address] [address] [facility] [address], [place] [address] P:[phone] P:[phone] Echocardiographic Report Patient Name: WANDER FIERRO A : 1940 Study Date: 07/03/2024 1:31:32 PM Gender: M Tech: Location: [facility] Provider: MARGIE OLEA ?Height(Cm): 175 BSA: 1.91 Weight(Kg): 75.3 Heart Rate: 81 BP: 145 / 90 Quality: Good Order Provider: MARGIE OLEA PROCEDURES: Echocardiographic Report: Transthoracic echocardiogram with [...] FINDINGS: Interpretation Site: Exam was interpreted at [facility]. Left Ventricle: Normal left ventricular size. Moderate [...] jet. Electronically Signed By: Hermann Kimbrough MD, [facility] 2024-07-03 14:58:14 CDT Procedure Note Hermann Kimbrough MD - 07/03/2024 [facility] Cardiology [address] [facility] [address] [id number] [address] [facility] [address] [address] P:[phone] P:[phone] Echocardiographic Report Patient Name: WANDER FIERRO A : 1940 Study Date: 07/03/2024 1:31:32 PM Gender: M Tech: Location: [place] Ref Provider: MARGIE OLEA Height(Cm): 175 BSA: 1.91 Weight(Kg): 75.3 Heart Rate: 81 BP: 145 / 90 Quality: Good Order Provider: MARGIE OLEA PROCEDURES: Echocardiographic Report: Transthoracic echocardiogram with [...] FINDINGS: Interpretation Site: Exam was interpreted at [facility]. Left Ventricle: Normal left ventricular size. Moderate [...] jet. Electronically Signed By: Hermann Kimbrough MD, [facility] 2024-07-03 14:58:14 CDT Margie Olea MD CV ECHO PROCEDURES Final Result * POCT lipid panel (01/10/2024 8:09 AM GIANT TIRE REPAIRER) Cholesterol, POC 203 mg/dL Comment:GLU = 84 HDL, POC 89 mg/dL Triglycerides, POC 92 mg/dL LDL Cholesterol POC 96 mg/dL Chol/HDL Ratio, POC 1.1 Non-HDL Cholesterol, POC 114 mg/dL Cholesterol Total, POC 203 mg/dL Capillary blood 01/10/2024 8 :09 AM GIANT TIRE REPAIRER Margie Olea MD POINT OF CARE TEST ORDER GOGO Final Result documented in this encounter Visit Diagnoses Diagnosis Benign hypertension- Primary Essential hypertension, benign Systolic murmur Undiagnosed cardiac murmurs Atrial paroxysmal tachycardia (CMS/HCC) (HCC) Paroxysmal supraventricular tachycardia Mixed hyperlipidemia Complete atrioventricular block (CMS/HCC) (HCC) Atrioventricular block, complete Pacemaker lead malfunction, subsequent encounter History of cardiac pacemaker in situ Benign hypertension Essential hypertension, benign Atrial paroxysmal tachycardia (CMS/HCC) (HCC) Paroxysmal supraventricular tachycardia Complete atrioventricular block (CMS/HCC) (HCC) Atrioventricular block, complete Pacemaker lead malfunction, subsequent encounter Systolic murmur Undiagnosed cardiac murmurs documented in this encounter Care Teams Furnace Hand Relationship Specialty Start Date End Date Rodrick Rincon MD [address] [place] [address] PCP - General Internal Medicine 02/06/18 07/02/24 documented as of this encounter
--- OUTSIDE RECORDS SUMMARY | 2024-11-29 05:17 | XMS_ITS | Encounter Summary ---
Author Organization [facility] Address [address] [address] Care Team Providers Care Clothing Presser Name Role Phone Rodrick Rincon MD Primary Care Provider [phone] Reason for Referral * Cardiology (Routine) - Closed Specialty Diagnoses / Procedures Referred By Contac t Referred To Contact Cardiology Diagnoses Sick sinus syndrome (CMS/HCC) (HCC) Atrial paroxysmal tachycardia (HCC) Procedures DEVICE CHECK - IN OFFICE Wilian Olea MD Phone: tel: fax: [facility] Referral ID Status Reason Start Date Expiration Date Visits Re quested Visits Authorized [id number] Closed 07/25/2023 08/23/2024 1 1 * Cardiology (Routine) - Closed Specialty Diagnoses / Procedures Referred By Contac t Referred To Contact Cardiology Diagnoses Sick sinus syndrome (CMS/HCC) (HCC) Atrial paroxysmal tachycardia (HCC) Procedures DEVICE CHECK - IN OFFICE Wilian Olea MD Phone: tel: fax: [facility] Referral ID Status Reason Start Date Expiration Date Visits Re quested Visits Authorized [id number] Closed 07/25/2023 08/23/2024 1 1 * Cardiology (Routine) - Authorized Specialty Diagnoses / Procedures Referred By Contac t Referred To Contact Cardiology Diagnoses Sick sinus syndrome (CMS/HCC) (HCC) Atrial paroxysmal tachycardia (HCC) Procedures DEVICE CHECK - REMOTE Wilian Olea MD Phone: tel: fax: [facility] Referral ID Status Reason Start Date Expiration Date V isits Requested Visits Authorized [id number] Authorized 07/25/2023 01/24/2025 1 1 * Cardiology (Routine) - Authorized Specialty Diagnoses / Procedures Referred By Contac t Referred To Contact Cardiology Diagnoses Sick sinus syndrome (CMS/HCC) (HCC) Atrial paroxysmal tachycardia (HCC) Procedures DEVICE CHECK - REMOTE Wilian Olea MD Phone: tel: fax: [facility] Referral ID Status Reason Start Date Expiration Date V isits Requested Visits Authorized [id number] Authorized 07/25/2023 01/24/2025 1 1 * Cardiology (Routine) - Authorized Specialty Diagnoses / Procedures Referred By Contac t Referred To Contact Cardiology Diagnoses Sick sinus syndrome (CMS/HCC) (HCC) Atrial paroxysmal tachycardia (HCC) Procedures DEVICE CHECK - REMOTE Wilian Olea MD Phone: tel: fax: [facility] Referral ID Status Reason Start Date Expiration Date V isits Requested Visits Authorized [id number] Authorized 07/25/2023 01/24/2025 1 1 Encounter Details Date Type Department Care Team (Late st Contact Info) Description 07/25/2023 Orders Only [facility] Cardiology [address] [place] [phone] Wilian Olea MD [address] [place], [place] [id number] Sick sinus syndrome (CMS/HCC) (HCC) (Primary Dx); [...] on file Legal Sex Male 3:29 AM COLOR SPRAYER Gender Identity Not on file Sexual Orientation Not on file documented as of this encounter Plan of Treatment Scheduled Orders Name Type Priority Associated Diagnoses Orde r Schedule DEVICE CHECK - REMOTE Cardiac Services Routine Sick sinus syndrome (CMS/HCC) (HCC) Atrial paroxysmal tachycardia (CMS/HCC) (HCC) Expected: 10/24/2023, Expires: 11/26/2030 DEVICE CHECK - REMOTE Cardiac Services Routine Sick sinus syndrome (CMS/HCC) (HCC) Atrial paroxysmal tachycardia (CMS/HCC) (HCC) Expected: 01/23/2024, Expires: 11/26/2030 DEVICE CHECK - REMOTE Cardiac Services Routine Sick sinus syndrome (CMS/HCC) (HCC) Atrial paroxysmal tachycardia (CMS/HCC) (HCC) Expected: 04/23/2024, Expires: 11/26/2030 DEVICE CHECK - IN OFFICE Cardiac Services Routine Sick sinus syndrome (CMS/HCC) (HCC) Atrial paroxysmal tachycardia (CMS/HCC) (HCC) Expected: 01/25/2024, Expires: 11/26/2030 DEVICE CHECK - IN OFFICE Cardiac Services Routine Sick sinus syndrome (CMS/HCC) (HCC) Atrial paroxysmal tachycardia (CMS/HCC) (HCC) Expected: 01/20/2025, Expires: 11/26/2030 documented as of this encounter Visit Diagnoses Diagnosis Sick sinus syndrome (CMS/HCC) (HCC)- Primary Sinoatrial node dysfunction Atrial paroxysmal tachycardia (HCC) Paroxysmal supraventricular tachycardia documented in this encounter Care Teams Clothing Presser Relationship Specialty Start Date End Date Rodrick Rincon MD [address] [place] [address] PCP - General Internal Medicine 02/06/18 07/02/24 documented as of this encounter
--- OUTSIDE RECORDS SUMMARY | 2024-11-29 05:17 | XMS_ITS | Encounter Summary ---
Author Organization [facility] Address [address] [address] Care Team Providers Care Lamp Shade Assembler Name Role Phone Rodrick Rincon MD Primary Care Provider [phone] Reason for Referral * Cardiology (Routine) - Closed Specialty Diagnoses / Procedures Referred By Contac t Referred To Contact Diagnoses Sick sinus syndrome (CMS/HCC) (HCC) Atrial paroxysmal tachycardia (HCC) Procedures DEVICE CHECK - REMOTE Wilian Olea MD Phone: tel: fax: [facility] Referral ID Status Reason Start Date Expiration Date Visits Re quested Visits Authorized [id number] Closed 04/11/2022 10/12/2023 1 1 * Cardiology (Routine) - Closed Specialty Diagnoses / Procedures Referred By Contac t Referred To Contact Diagnoses Sick sinus syndrome (CMS/HCC) (HCC) Atrial paroxysmal tachycardia (HCC) Procedures DEVICE CHECK - REMOTE Wilian Olea MD Phone: tel: fax: [facility] Referral ID Status Reason Start Date Expiration Date Visits Re quested Visits Authorized [id number] Closed 04/11/2022 10/12/2023 1 1 * Cardiology (Routine) - Closed Specialty Diagnoses / Procedures Referred By Contac t Referred To Contact Diagnoses Sick sinus syndrome (CMS/HCC) (HCC) Atrial paroxysmal tachycardia (HCC) Procedures DEVICE CHECK - REMOTE Wilian Olea MD Phone: tel: fax: [facility] Referral ID Status Reason Start Date Expiration Date Visits Re quested Visits Authorized [id number] Closed 04/11/2022 10/12/2023 1 1 Encounter Details Date Type Department Care Team (Late st Contact Info) Description 04/11/2022 Orders Only [facility] Cardiology [address] [place], [place] [address], [place] [address] Wilian Olea MD [address] [place] [address] [address] [place] [address] Sick sinus syndrome (CMS/HCC) (HCC) [...] on file 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 Gender Identity Not on file Sexual Orientation Not on file documented as of this encounter Plan of Treatment Pending Results Name Type Priority Associated Diagnoses Date /Time DEVICE CHECK - REMOTE Cardiac Services Routine Sick sinus syndrome (CMS/HCC) (HCC) Atrial paroxysmal tachycardia (CMS/HCC) (HCC) 07/25/2023 3:29 PM CDT Scheduled Orders Name Type Priority Associated Diagnoses Orde r Schedule DEVICE CHECK - REMOTE Cardiac Services Routine Sick sinus syndrome (CMS/HCC) (HCC) Atrial paroxysmal tachycardia (CMS/HCC) (HCC) Expected: 10/10/2022, Expires: 11/26/2027 documented as of this encounter Results * DEVICE CHECK - REMOTE (04/25/2023 8:56 AM CDT) Anatomical Region Laterality Modality Other Narrative 08/10/2023 12:07 PM CDT Table formatting from the original result was not included. PM CHECK (REMOTE) Patient ID: Dinesh Saha is a 83 y.o. male This patient received a Petty Pacemaker. ??They had a routine remote transmission on 04/25/2023. Device implant indications: ??Sick sinus syndrome ?? Interrogation of the patient's device demonstrates the following: Presenting EGM: ??A sense V pace there is short durations [...] % 36 % 100 % Battery Status: ??2.3 years to ANGIE Episodes last 90 days/Comments: AF [place] 0 % 8 HVR episodes- stored episodes do note what appears to be noise in the right ventricular lead of note the patient is pacemaker dependent there is presumed inhibition of pacing during these time periods. NORMAL DEVICE FUNCTION PROGRAMMED MEDICATIONS: Anti-coagulant(s): ??Aspirin 81 mg Anti-arrhythmic(s): ??Norvasc 2.5 mg twice daily PLAN: 1) Petty Pacemaker evaluation 2) Petty remote transmission scheduled in 3 months. 3) Programming appropriate for device measurements Julianna Aponte RN us Wilian Olea MD [facility] SERVICES PROC EDURES Final Result * DEVICE CHECK - REMOTE (09/20/2022 4:35 PM CDT) Anatomical Region Laterality Modality Other Narrative 10/24/2022 8:[address] [place] Dual Pacemaker Dx; SSS, PAT. DOI 03/05/[address] Bruno. [place] remote home monitor Q3 mo, Office pacer checks Q1 yr. Battery Advisory. Routine Pacemaker remote. Normal device function. Battery function-2.95V, 3.0 years remaining battery life to ANGIE. ?? 03/25/2022 remote report-battery longevity was 10.1 years. Appropriate lead measurements. Presenting rhythm-APVP. 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 2 Atrial high rate episodes noted, iegm's [...] tachycardia documented in this encounter Care Teams Lamp Shade Assembler Relationship Specialty Start Date End Date Rodrick Rincon MD [address] [place] [address] PCP - General Internal Medicine 02/06/18 07/02/24 documented as of this encounter
--- OUTSIDE RECORDS SUMMARY | 2024-11-29 05:17 | XMS_ITS | Encounter Summary ---
Author Organization [facility] Address [address] [address] Care Team Providers Care Sign Language Interpreter Name Role Phone Rodrick Rincon MD Primary Care Provider [phone] Reason for Referral * Cardiology (Routine) - Closed Specialty Diagnoses / Procedures Referred By Contac t Referred To Contact Diagnoses Sick sinus syndrome (CMS/HCC) (HCC) Atrial paroxysmal tachycardia (HCC) Pacemaker Procedures DEVICE CHECK - REMOTE Wilian Olea MD Phone: tel: fax: [facility] Referral ID Status Reason Start Date Expiration Date Visits Re quested Visits Authorized [id number] Closed 01/19/2023 07/19/2024 1 1 [place] * Cardiology (Routine) - Closed Specialty Diagnoses / Procedures Referred By Contac t Referred To Contact Diagnoses Sick sinus syndrome (CMS/HCC) (HCC) Atrial paroxysmal tachycardia (HCC) Pacemaker Procedures DEVICE CHECK - REMOTE Wilian Olea MD Phone: tel: fax: [facility] Referral ID Status Reason Start Date Expiration Date Visits Re quested Visits Authorized [id number] Closed 01/19/2023 07/19/2024 1 1 [place] * Cardiology (Routine) - Closed Specialty Diagnoses / Procedures Referred By Contac t Referred To Contact Diagnoses Sick sinus syndrome (CMS/HCC) (HCC) Atrial paroxysmal tachycardia (HCC) Pacemaker Procedures DEVICE CHECK - REMOTE Wilian Olea MD Phone: tel: fax: [facility] Referral ID Status Reason Start Date Expiration Date Visits Re quested Visits Authorized [id number] Closed 01/19/2023 07/19/2024 1 1 [place] * Cardiology (Routine) - Closed Specialty Diagnoses / Procedures Referred By Contac t Referred To Contact Diagnoses Sick sinus syndrome (CMS/HCC) (HCC) Atrial paroxysmal tachycardia (HCC) Pacemaker Procedures DEVICE CHECK - IN OFFICE Wilian Olea MD Phone: tel: fax: [facility] Referral ID Status Reason Start Date Expiration Date Visits Re quested Visits Authorized [id number] Closed 01/19/2023 02/18/2024 1 1 [place] Encounter Details Date Type Department Care Team (Late st Contact Info) Description 01/19/2023 Orders Only [facility] Cardiology [address] [place] [phone] Wilian Olea MD [address] [place] [address] [address] [place] [address] Sick sinus syndrome (CMS/HCC) (HCC) (Primary Dx); Atrial paroxysmal tachycardia (CMS/HCC) (HCC); Pacemaker Social History Tobacco Use Types Packs/Day Years Used Date Smoking Tobacco: Former Pipe Smokeless Tobacco: Never Comments:smokes pipe Alcohol Use Standard Drinks/Week Comments Yes 2 (1 standard drink = 0.6 oz pur e alcohol) occassionally Sex and Gender Information Value Date Recorded Sex Assigned at Not on file 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 DOI 03/05/[address] Bruno. [place] remote home monitor Q3 mo, Office pacer checks Q6 mo. Noise on RV lead. Battery Advisory. Routine DDD Pacemaker Remote. Transmission attached. Battery status-2.87V, 1.4 years remaining to ANGIE. Stable lead impedances, pacing and sensing thresholds. Presenting rhythm: AP-BINDERY OPERATOR. AP-43 %, BINDERY OPERATOR->99 %. No AT/AF episodes recorded. ?? 3 Ventricular arrhythmias detected, IEGM demonstrates oversensing noise. Medication: ASA, Lisinopril. Follow up: Office pacemaker f/u 08/14/2024. Cari Huitron RN Wilian Olea MD CV CARDIAC SERVICES PROC EDURES Final Result * DEVICE CHECK - REMOTE (02/07/2024 11:13 [...] impedances, pacing and sensing thresholds. Presenting rhythm: -BINDERY OPERATOR. AP-41 %, BINDERY OPERATOR->99 %. No AT/AF episodes recorded. ?? 8 Ventricular arrhythmias detected, IEGM demonstrates oversensing noise. Medication: ASA, Lisinopril. Follow up: [place] remote 05/07/2024. Cari Huitron RN Wilian Olea MD CV CARDIAC SERVICES PROC EDURES Final Result * DEVICE CHECK - REMOTE (11/01/2023 3:21 PM HEAD MILLER) Anatomical Region Laterality Modality Other Narrative 12/15/2023 12:[address] [place] Dual Pacemaker Dx; SSS, PAT. DOI 03/05/[address] Bruno. [place] remote home monitor Q3 mo, Office pacer checks Q6 mo. Noise on RV lead. Battery Advisory. Routine DDD Pacemaker Remote. Transmission attached. Battery status-2.90V, 1.8 years remaining to ANGIE. Stable lead impedances, pacing and sensing thresholds. Presenting rhythm: AP-BINDERY OPERATOR. AP-35 %, BINDERY OPERATOR->99 %. 1 AT/AF episode noted, ??episode was 6 seconds in duration, IEGM demonstrates Atach. 7 Ventricular arrhythmias detected, IEGM demonstrates oversensing noise. Medication: ASA, Lipitor, Lisinopril. Follow up: [place] remote 02/06/2024. Cari Huitron RN Wilian Olea MD CV CARDIAC SERVICES PROC EDURES Final Result * DEVICE CHECK - IN OFFICE (07/26/2023 3:58 PM CDT) Anatomical Region Laterality Modality Other Narrative 07/28/2023 8:[address] [place] Dual Pacemaker Dx; SSS, PAT. DOI 03/05/[address] Bruno[address] [place] remote home monitor Q3 mo, Office pacer [...] intrinsic noted. Not pacemaker dependent today. AP-44%, BINDERY OPERATOR->99%. Atrial high rate episodes noted. Ventricular [...] Dinesh will return @ later time to [facility] for CxR. Office device f/u to be scheduled when patient sees Dr Olea in August. [place] remote f/u 10/31/2023. Cari Huitron, OJ Wilian Olea MD CV CARDIAC SERVICES PROC EDURES Final Result documented in this encounter Visit Diagnoses Diagnosis Sick sinus syndrome (CMS/HCC) (HCC)- Primary Sinoatrial node dysfunction Atrial paroxysmal tachycardia (HCC) Paroxysmal supraventricular tachycardia Pacemaker Cardiac pacemaker in situ CHB (complete heart block) (CMS/HCC) (HCC)- Primary [...] situ documented in this encounter Care Teams Sign Language Interpreter Relationship Specialty Start Date End Date Rodrick Rincon MD [address] [place] [address] PCP - General Internal Medicine 02/06/18 07/02/24 documented as of this encounter
--- OUTSIDE RECORDS SUMMARY | 2024-11-29 05:17 | XMS_ITS | Encounter Summary ---
Author Organization [facility] Address [address] [place] [address] Care Team Providers Care E Commerce Strategist Name Role Phone Rodrick Rincon MD Primary Care Provider [phone] Reason for Referral * Diagnostic Imaging (Routine) - Closed Specialty Diagnoses / Procedures Referred By Contac t Referred To Contact Diagnoses Chronic bilateral low back pain without sciatica Procedures XR Spine Lumbar Ap Lat Flex Ext min 4 Views [place] Varela MD Phone: tel: fax: [facility] Referral ID Status Reason Start Date Expiration Date Visits Re quested Visits Authorized [id number] Closed 08/25/2021 09/24/2022 1 1 Reason for Visit * Diagnostic Imaging (Routine) - Closed Specialty Diagnoses / Procedures Referred By Contac t Referred To Contact Diagnoses Chronic bilateral low back pain without sciatica Procedures XR Spine Lumbar Ap Lat Flex Ext min 4 Views [place] Varela MD Phone: tel: fax: [facility] Referral ID Status Reason Start Date Expiration Date Visits Re quested Visits Authorized [id number] Closed 08/25/2021 09/24/2022 1 1 Encounter Details Date Type Department Care Team (Latest Contact Info) Description 08/25/2021 2:16 PM CDT - 08/25/2021 11:59 PM CDT Hospital Encounter [facility] Radiology at [facility] [address] [place] [address] Miller Varela MD [address] [facility] [address] [place] [address] Low back pain without sciatica, unspecified back pain laterality, unspecified chronicity Discharge Disposition: Discharge to home or self care Social History Tobacco Use Types Packs/Day Years Used Date Smoking Tobacco: Former Pipe Smokeless Tobacco: Never Comments:smokes pipe Alcohol Use Standard Drinks/Week Comments Yes 2 (1 standard drink = 0.6 oz pur e alcohol) occassionally Sex and Gender Information Value Date Recorded Sex Assigned at Not on file 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 0 0 7 folic acid (FOLVITE) 400 mcg tablet Take 1 tablet (400 mcg total) by mouth daily multivitamin tablet tablet take 1 tablet by oral route every day with food 0 0 5 omega-3 fatty acids-vitamin E (FISH OIL) 1,000 mg capsule take 1 by Oral route once 0 0 5 ondansetron ODT (ZOFRAN-ODT) 4 mg disintegrating tablet Take 1 tablet (4 mg total) by mouth every 8 (eight) hours as needed for nausea or vomiting ustekinumab (STELARA) injection Inject 1 mL (90 mg total) under the skin Inject subq every 8 weeks acetaminophen (PAIN RELIEVER) 500 mg capsule take 2 capsule by oral route every 6 hours as needed 0 0 7 11/22/20 24 aspirin 81 mg enteric coated tablet Take 1 tablet (81 mg total) by mouth daily 11/22/20 24 calcium carbonate-vitamin D3 (CALCIUM 500 + D) 500 mg(1,250mg) -400 unit tablet 0 0 5 11/22/20 24 cholecalciferol (VITAMIN D3) 2,000 unit tablet take 1 by Oral route every day 0 0 5 11/22/20 24 clonazePAM (KlonoPIN) 0.5 mg tablet take 1 tablet by oral route every day 0 0 4 11/22/20 24 coenzyme Y31-dhtwffq E (CO Q-10, WITH VIT E,) 100-5 mg-unit capsule 1 tablet by mouth once a day 0 0 4 11/22/20 24 docusate sodium (DOK) 100 mg capsule Take 1 tablet (100 mg total) by mouth 2 (two) times a day as needed for constipation 11/22/20 24 iron bisgly,ps-FA-B-C#12 -succ (IROSPAN 20/05) 65 mg-65 mg -1,000 mcg (24) tablet 0 0 7 11/22/20 24 melatonin 5 mg tablet 5 mg. 0 0 6 11/24/20 24 vitamin b complex tablet Take 5,000 tablets by mouth daily 11/22/20 24 white petrolatum-mineral oil (eucerin) cream 0 0 5 11/22/20 24 amLODIPine (NORVASC) 2.5 mg tablet TAKE 1 TABLET(2.5 MG) BY MOUTH DAILY 90 tablet 2 1 07/11/20 22 aspirin-acetaminoph en-caffeine (EXCEDRIN MIGRAINE) 250-250-65 mg per tablet one tablet as needed for migraine 0 0 5 11/22/20 24 rtadpd-ail-G-Mn-her b#21 (GLUCOSAMINE-MSM COMPLEX) tablet 0 0 5 11/22/20 24 hydroCHLOROthiazide (HYDRODIURIL) 25 mg tablet TAKE 1 TABLET(25 MG) BY MOUTH DAILY 90 tablet 2 1 03/31/20 22 lisinopriL (PRINIVIL,ZESTRIL) 40 mg tablet TAKE 1 TABLET(40 MG) BY MOUTH DAILY 90 tablet 3 1 11/14/20 21 meclizine (ANTIVERT) 25 mg tablet take 1 tablet by oral route 3 times every day as needed 0 0 7 11/22/20 24 documented as of this encounter Discharge Disposition Disposition Code Departure Means Destination Discharge to home or self care documented in this encounter Miscellaneous Notes * Result Encounter Note - Minda Whitten RMA - 08/25/2021 11:59 PM CDT Spoke with Mr. Saha, advised of x-ray results and recommendations. He is in agreement with PT. An order will be placed and sent to [facility] in [place], [place]. Unable to schedule 12 week follow up as schedule is frozen awaiting schedule changes. We will reach out to schedule once the schedule is finalized. documented in this encounter Plan of Treatment Not on file documented as of this encounter Procedures Procedure Name Priority Date/Time Associated Diagnosis Comments XR LUMBAR SPINE AP LAT FLEX EX Schedule Routine, Read Routine (OP Routine) 08/25/2021 2:25 PM CDT Low back pain without sciatica, unspecified back pain laterality, unspecified chronicity documented in this encounter Results * XR Spine Lumbar Ap Lat Flex Ext min 4 Views (08/25/2021 2:25 PM CDT) Anatomical Region Laterality Modality L-spine N/A Computed Radiogr aphy 08/25/2021 4:24 PM CDT Impressions 08/25/2021 4:34 PM CDT 1. Posterior decompression with instrument fusion from L4-S1 with combined anterior discectomy and interbody fusion. 2. Multilevel degenerative disc disease worst and severe at L1-L2. Dictated by: Kalina Bangura MD The radiology attending physician has personally reviewed this study, and had reviewed and/or edited this written report and agrees with it. Electronically signed by: Werner Mcadams M.D. Narrative 08/25/2021 4:34 PM CDT EXAMINATION: XR SPINE LUMBAR AP LAT FLEX EXT MIN 4 VIEWS HISTORY: ??Low back pain. FINDINGS: 4 views of the lumbar spine including bending are submitted for interpretation without comparison. There is posterior decompression with instrumented fusion from L4-S1 with combined anterior discectomy and interbody fusion. There is multilevel degenerative disease above the fusion worst and severe at L1-L2. The lumbar spine as hypomobile. There is no abnormal motion on bending. Partially visualized pacemaker wires are present. Aortic calcifications are present. Procedure Note Werner Mcadams MD - 08/25/2021 EXAMINATION: XR SPINE LUMBAR AP LAT FLEX EXT MIN 4 VIEWS HISTORY: Low back pain. FINDINGS: 4 views of the lumbar spine including bending are submitted for interpretation without comparison. There is posterior decompression with instrumented fusion from L4-S1 with combined anterior discectomy and interbody fusion. There is multilevel degenerative disease above the fusion worst and severe at L1-L2. The lumbar spine as hypomobile. There is no abnormal motion on bending. Partially visualized pacemaker wires are present. Aortic calcifications are present. IMPRESSION: 1. Posterior decompression with instrument fusion from L4-S1 with combined anterior discectomy and interbody fusion. 2. Multilevel degenerative disc disease worst and severe at L1-L2. Dictated by: Kalina Bangura MD The radiology attending physician has personally reviewed this study, and had reviewed and/or edited this written report and agrees with it. Electronically signed by: Werner Mcadams M.D. Miller Varela MD IMG XR PROCEDURES Final Result documented in this encounter Visit Diagnoses Diagnosis Low back pain without sciatica, unspecified back pain laterality, unspecified chronicity documented in this encounter Care Teams E Commerce Strategist Relationship Specialty Start Date End Date Rodrick Rincon MD [address] [place] [address] PCP - General Internal Medicine 02/06/18 07/02/24 documented as of this encounter
--- OUTSIDE RECORDS SUMMARY | 2024-11-29 05:17 | XMS_ITS | Encounter Summary ---
Author Organization [facility] Address [address] [address] Care Team Providers Care Qa Internship Name Role Phone Rodrick Rincon MD Primary Care Provider [phone] Reason for Visit * Cardiology (Routine) - Closed Specialty Diagnoses / Procedures Referred By Contac t Referred To Contact Diagnoses Sick sinus syndrome (CMS/HCC) (HCC) Atrial paroxysmal tachycardia (HCC) Procedures DEVICE CHECK - REMOTE Wilian Olea MD Phone: tel: fax: [facility] Referral ID Status Reason Start Date Expiration Date Visits Re quested Visits Authorized [id number] Closed 04/11/2022 10/12/2023 1 1 Encounter Details Date Type Department Care Team (Latest Contact Info) Description 04/25/2023 7:15 AM CDT Ancillary Procedure [facility] Cardiology [address] [facility] [address] [place] [phone] Sick sinus syndrome (CMS/HCC) (HCC); Atrial paroxysmal tachycardia (CMS/HCC) (HCC) Social History Tobacco Use Types Packs/Day Years Used Date Smoking Tobacco: Former Pipe Smokeless Tobacco: Never Comments:smokes pipe Alcohol Use Standard Drinks/Week Comments Yes 2 (1 standard drink = 0.6 oz pur e alcohol) occassionally Sex and Gender Information Value Date Recorded Sex Assigned at Not on file 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 Gender Identity Not on file Sexual Orientation Not on file documented as of this encounter Plan of Treatment Not on file documented as of this encounter Procedures Procedure Name Priority Date/Time Associated Diagnosis Comments DEVICE CHECK - REMOTE Routine 04/25/2023 8:56 AM CDT Sick sinus syndrome (CMS/HCC) (HCC) [...] to ANGIE Episodes last 90 days/Comments: AF [place] 0 % 8 HVR episodes- stored episodes [...] 3) Programming appropriate for device measurements Julianna Emrle Wigge, RN Wilian Olea MD [facility] CARDIAC SERVICES PROC EDURES Final Result documented in this encounter Visit Diagnoses Diagnosis Sick sinus syndrome (CMS/HCC) (HCC) Sinoatrial node dysfunction Atrial paroxysmal tachycardia (HCC) Paroxysmal supraventricular tachycardia documented in this encounter Care Teams Qa Internship Relationship Specialty Start Date End Date Rodrick Rincon MD [address] [place] [address] PCP - General Internal Medicine 02/06/18 07/02/24 documented as of this encounter
--- OUTSIDE RECORDS SUMMARY | 2024-11-29 05:17 | XMS_ITS | Encounter Summary ---
Author Organization [facility] Address [address] [place] [address] Care Team Providers Care Respiratory Therapy Instructor Name Role Phone Rodrick Rincon MD Primary Care Provider [phone] Reason for Visit * Reason Comments Follow-up 6 mo f/u Hypertension Shortness of Breath Complete AV Block Encounter Details Date Type Department Care Team (Late st Contact Info) Description 06/09/2021 2:30 PM CDT Office Visit [facility] Cardiology [address] [place] [address] Wilian Olea MD [address] [facility] [address] [place] [address] Benign hypertension (Primary Dx); Atrial paroxysmal tachycardia (CMS/HCC) (HCC); Dyslipidemia; History of cardiac pacemaker in situ; Sick sinus syndrome (CMS/HCC) (HCC) Social History Tobacco Use Types Packs/Day Years Used Date Smoking Tobacco: Former Pipe Smokeless Tobacco: Never Comments:smokes pipe Alcohol Use Standard Drinks/Week Comments Yes 2 (1 standard drink = 0.6 oz pur e alcohol) occassionally Sex and Gender Information Value Date Recorded Sex Assigned at Not on file 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 Gender Identity Not on file Sexual Orientation Not on file documented as of this encounter Last Filed Vital Signs Vital Sign Reading Time Taken Comments Blood Pressure 128/66 06/09/2021 2:47 PM CDT Pulse 60 06/09/2021 2:47 PM CDT Temperature - - Respiratory Rate - - Oxygen Saturation 94% 06/09/2021 2:47 PM CDT Inhaled Oxygen Concentration - - Weight 77.6 kg (171 lb 1.6 oz) 06/09/2021 2:47 P M CDT Height 175.3 cm (5' 9 ) 06/09/2021 2:47 PM CDT Body Mass Index 25.27 06/09/2021 2:47 PM CDT documented in this encounter Progress Notes * Wilian Olea MD - 06/09/2021 2:30 PM CDT [facility] DATE OF VISIT: 06/09/2021 CHIEF COMPLAINT Chief Complaint Patient presents with ??? Follow-up 6 mo f/u ??? Hypertension ??? Shortness of Breath ??? Complete AV Block ASSESSMENT Diagnoses and all orders for this visit: Benign hypertension (Primary) Atrial paroxysmal tachycardia (CMS/HCC) Dyslipidemia History of cardiac pacemaker in situ Sick sinus syndrome (CMS/HCC) PLAN/RECOMMENDATIONS 1. BP under fair control goal <140/90mmHg. Continue monitor at home. Monitor BP on routine basis. Call with readings. Continue consistent cardiovascular exercise, weight loss, medication compliance, and low-sodium diet. May change Amlodipine if BP elevated on average. No change at this time. -Amlodipine 2.5mg HCTZ 25mg daily, and Lisinopril 40mg daily -BMP, CBC normal 04/[address] [facility] Routine PPM personally reviewed from 02/2021 normal fxn, >99% PARATRANSIT DRIVER 45% AP AT noted, infrequent, underlying CHB. 3. Monitor weight, ensure adequate caloric intake. 4. Remains on Stelara for his Crohn's, colonoscopy last week doing well overall 5. No palps suggestive of significant PAT. Monitor burden on PPM check. 6. Lipids personally reviewed 12/02/20 LDL 91 HDL 100, well controlled goal LDL<100. Continue Atorvastatin 20mg qhs and lifestyle modification. -12 lead EKG today personally reviewed electronic ventricular pacing, possible underlying complete heart block versus Wenckebach behavior Over 50% of this visit counseling SSS/PPM, [...] episodes. He denies any prior history of [place], angina, CHF or arrhythmias. He has reasonable [...] sciatica, seeking specialist referral. He was in [place] for 2 weeks in Jul, and missed [...] having back surgery with Dr. Robert at [facility] in early October. He denies chest pain, palpitations, syncope or near syncope. We received a remote download from his [employer] and it was reviewed by Felisa Olea [...] pains. NO bleeding Crohns under control with Spikelara. HAd lipids done at [place]. 11/22/19 Doing fairly well, BP better after stopping Tylenol he notes as he meticulously tracks hisBP. No bleeding, dizziness, falls or CP. Still taking ASA 81mg daily. 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 No dizziness SOB or CP. BP higher late Monday nights but eats candy once weekly on Sundays. 12/02/20 office visit 06/09/21 Doing ok in general pinched nerve in L shoulder. No CP no SOB palps, sig dizziness. No bleeding. MEDICAL HISTORY Past Medical History: Diagnosis Date ??? Anemia ??? Cancer (CMS/HCC) prostate cancer ??? Colon polyp ??? Crohn's disease (CMS/HCC) ??? HX OTHER MEDICAL Crohn's disease ??? [...] tablet aspirin 81 mg enteric coated tablet iyntfxg-ioaaeelymhaem-kqehycls (EXCEDRIN MIGRAINE) 250-250-65 mg per tablet atorvastatin (LIPITOR) 20 mg tablet b complex vitamins (B COMPLEX-VITAMIN B12) tablet biotin 5,000 mcg tablet,disintegrating calcium carbonate-vitamin D3 (CALCIUM 500 + D) 500 mg(1,250mg) -400 unit tablet cholecalciferol (VITAMIN D3) 2,000 unit tablet clonazePAM (KlonoPIN) 0.5 mg tablet coenzyme V99-bvjwumi E (CO Q-10, WITH VIT E,) 100-5 mg-unit capsule docusate sodium (DOK) 100 mg capsule folic acid (FOLVITE) 400 mcg tablet nfvwcf-sem-P-Mn-herb#21 (GLUCOSAMINE-MSM COMPLEX) tablet hydroCHLOROthiazide (HYDRODIURIL) 25 mg [...] Negative for blurred vision and pain. Cardiovascular: Negative for chest pain, claudication, dyspnea on exertion, irregular heartbeat, leg swelling, near-syncope, orthopnea, palpitations and syncope. Respiratory: Negative for cough, hemoptysis, shortness of breath, snoring and wheezing. Endocrine: Negative for cold intolerance and heat intolerance. Hematologic/Lymphatic: Negative for bleeding problem. Does not bruise/bleed easily. Skin: Negative for color change, itching, rash and suspicious lesions. Musculoskeletal: Positive for joint pain. Negative for back pain, falls, muscle weakness and myalgias. Gastrointestinal: Negative [...] Ht 175.3 cm (5' 9 ) Wt 77.6 kg (171 lb 1.6 oz) SpO2 94% BMI 25.27 kg/m?? Weight: 77.6 kg (171 lb 1.6 oz) Height: 175.3 cm (5' 9 ) Body mass index is 25.27 kg/m??. Physical Exam Constitutional: General: He is not in acute [...] pulses and intact distal pulses. Heart sounds: Normal heart sounds, S1 normal and S2 normal. Heart sounds not distant. No murmur heard. No friction rub. No gallop. No S3 [...] rash. Nails: There is no clubbing. Neurological: Mental Status: He is alert and oriented to person, place, and time. Cranial Nerves: No cranial nerve deficit. Motor: No abnormal muscle tone. Coordination: Coordination normal. Psychiatric: Speech: Speech normal. Behavior: Behavior normal. Behavior is cooperative. Judgment: Judgment normal. LABS AND OTHER DIAGNOSTIC [...] longevity. Appropriate lead measurements. Presenting rhythm-APVP. AP-45%, PARATRANSIT DRIVER->99%. 4 Atrial high rate episodes noted, max duration 2 min. No ventricular high rate episodes noted. Medications; Norvasc, Hydrochlorothiazide, Lisinopril, Lipitor, ASA. See scanned report. [place] remote f/u 06/08/2021. Personally reviewed EKG, Echocardiogram, pacemaker checks, and bloodwork/lipids. 10/15/19 PPM check; >99% PARATRANSIT DRIVER, no atrial tachyarrhythmias, no A.Fib, normal device function Nando Olea MD, FACC documented in this encounter Plan of Treatment Not on file documented as of this encounter Visit Diagnoses Diagnosis Benign hypertension- Primary Essential hypertension, benign Atrial paroxysmal tachycardia (HCC) Paroxysmal supraventricular tachycardia Dyslipidemia Other and unspecified hyperlipidemia History of cardiac pacemaker in situ Sick sinus syndrome (CMS/HCC) (HCC) Sinoatrial node dysfunction documented in this encounter Care Teams Respiratory Therapy Instructor Relationship Specialty Start Date End Date Rodrick Rincon MD [address] [place] [address] [id number] PCP - General Internal Medicine 02/06/18 07/02/24 documented as of this encounter
--- OUTSIDE RECORDS SUMMARY | 2024-11-29 05:17 | XMS_ITS | Encounter Summary ---
Author Organization [facility] Address [address] [place] [address] Care Team Providers Care Manager Of Application Development Name Role Phone Rodrick Rincon MD Primary Care Provider [phone] Reason for Visit * Reason Comments Follow-up 2 mo f/u Sick Sinus Syndrome Hypertension Encounter Details Date Type Department Care Team (Latest Contact Info) Description 09/25/2023 2:45 PM CDT Office Visit [facility] Cardiology [address] [place] [address] Wilian Olea MD [facility] [address] [place] [address] Benign hypertension (Primary Dx); Atrial paroxysmal tachycardia (CMS/HCC) (HCC); Complete atrioventricular block (CMS/HCC) (HCC); Pacemaker; Pacemaker lead malfunction, subsequent encounter; Mixed hyperlipidemia; Sick sinus syndrome (CMS/HCC) (HCC) Social History Tobacco Use Types Packs/Day Years Used Date Smoking Tobacco: Former Pipe Smokeless Tobacco: Never Comments:smokes pipe Alcohol Use Standard Drinks/Week Comments Yes 2 (1 standard drink = 0.6 oz pur e alcohol) occassionally Sex and Gender Information Value Date Recorded Sex Assigned at Not on file 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 Gender Identity Not on file Sexual Orientation Not on file documented as of this encounter Last Filed Vital Signs Vital Sign Reading Time Taken Comments Blood Pressure 138/62 09/25/2023 2:56 PM CDT Pulse 67 09/25/2023 2:56 PM CDT Temperature - - Respiratory Rate - - Oxygen Saturation 98% 09/25/2023 2: 56 PM CDT Inhaled Oxygen Concentration - - Weight 73.8 kg (162 lb 12.8 oz) 09/25/2023 2:56 PM CDT Height 175.3 cm (5' 9 ) 09/25/2023 2:56 PM CDT Body Mass Index 24.04 09/25/2023 2:56 PM CDT documented in this encounter Progress Notes * Wilian Olea MD - 09/25/2023 2:45 PM CDT [facility] DATE OF VISIT: 09/25/2023 CHIEF COMPLAINT Chief Complaint Patient presents with ??? Follow-up 2 mo f/u ??? Sick Sinus Syndrome ??? Hypertension ASSESSMENT Diagnoses and all orders for this visit: Benign hypertension (Primary) Atrial paroxysmal tachycardia (CMS/HCC) (HCC) Complete atrioventricular block (CMS/HCC) (HCC) Pacemaker Pacemaker lead malfunction, subsequent encounter Mixed hyperlipidemia Sick sinus syndrome (CMS/HCC) (HCC) PLAN/RECOMMENDATIONS 1. BP controlled, variable but generally controlled, goal <140/90mmHg. Continue monitor at home.Monitor BP on routine basis. Call with readings. Continue consistent cardiovascular exercise, weight loss, medication compliance, and low- sodium diet. -Continue Amlodipine 5mg daily, HCTZ 25mg daily, and Lisinopril 40mg daily 2. [facility] Routine PPM personally reviewed from 07/2023 check, Right ventricular noise stored as 8 high ventricular rate episodes with significant decline in estimated longevity most notably from February to July 2022 relatively stable declined subsequently and concern for pacemaker inhibition which could result in significant symptomatic pauses. AP 44%, SEXER 100% no SVT AT noted this check. Underlying CHB. RV impedance stable. However, if RV lead function/integrity results in unacceptable safety this would take precedence at the appropriate time. Patient verbalized understanding and agreed with plan of care. Counseled to monitor for near-syncope, syncope, declining activity tolerance / bradycardia and if noted present to nearest ER via EMS immediately. 3. Remains on Stelara for his Crohn's. 4. 2D Echo 02/2022 EF 65-70% stable no . No heart failure. Monitor for now. If new sxs or concernsrepeat Echo to assess for evidence of given murmur. 5. No significant palps suggestive of significant PAT. Monitor burden on PPM check. Stable at this time, no recurrent events. 6. Lipids personally reviewed 01/16/23 LDL 58 HDL >100, well controlled goal LDL<100. ContinueAtorvastatin 20mg qhs and lifestyle modification. Over 50% of this visit counseling SSS/PPM, HTN, lipids, medications, lifestyle modification. Follow up in the office in 4 months or sooner as needed. Thank you [...] episodes. He denies any prior history of [place], angina, CHF or arrhythmias. He has reasonable [...] sciatica, seeking specialist referral. He was in [place] for 2 weeks in Jul, and missed [...] having back surgery with Dr. Robert at [facility] in early October. He denies chest pain, palpitations, syncope or near syncope. We received a remote download from his [employer] and it was reviewed by Felisa Olea [...] control with Marcus. HAd lipids done at [place]. 11/22/19 Doing fairly well, BP better after stopping Tylenol he notes as he meticulously tracks hisBP. No bleeding, dizziness, falls or CP. Still taking ASA 81mg daily. 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 No [...] No palps. No edema. Feels well otherwise. MEDICAL HISTORY Past Medical History: Diagnosis Date [...] tablet aspirin 81 mg enteric coated tablet atorvastatin (LIPITOR) 20 mg tablet B6/folic/B12/coffee/phosphatid (NEURIVA PLUS BRAIN PERFORMANCE ORAL) biotin 5,000 mcg tablet,disintegrating calcium carbonate-vitamin D3 (CALCIUM 500 + D) 500 mg(1,250mg) -400 unit tablet cholecalciferol (VITAMIN D3) 2,000 unit tablet clonazePAM (KlonoPIN) 0.5 mg tablet coenzyme D66-hlujovq E (CO Q-10, WITH VIT E,) 100-5 mg-unit capsule docusate sodium (DOK) 100 mg capsule folic acid (FOLVITE) 400 mcg tablet zrvgry-axr-Q-Mn-herb#21 (GLUCOSAMINE-MSM COMPLEX) tablet hydroCHLOROthiazide (HYDRODIURIL) 25 mg tablet lisinopriL (PRINIVIL,ZESTRIL) 40 mg tablet meclizine (ANTIVERT) 25 mg tablet melatonin 5 mg tablet multivitamin tablet tablet omega-3 fatty acids-vitamin E (FISH OIL) 1,000 mg capsule ondansetron ODT (ZOFRAN-ODT) 4 mg disintegrating tablet traZODone (DESYREL) 50 mg tablet ustekinumab (STELARA) injection vitamin b complex tablet white petrolatum-mineral oil (eucerin) cream xdqvqpy-hrqgbtmzmcmpy-iuleyedo (EXCEDRIN MIGRAINE) 250-250-65 mg per tablet iron bisgly,ps-FA-B-C#12-succ (IROSPAN 24/6) 65 mg-65 mg -1,000 mcg (24) tablet ALLERGIES No Known Allergies REVIEW OF [...] and are negative. PHYSICAL EXAM Vitals BP 138/62 (BP Location: Left arm, Patient Position: Sitting) Pulse 67 Ht 175.3 cm (5' 9 ) Wt 73.8 kg (162 lb 12.8 oz) SpO2 98% BMI 24.04 kg/m?? Weight: 73.8 kg (162 lb 12.8 oz) Height: 175.3 cm (5' 9 ) Body mass index is 24.04 kg/m??. Physical Exam Vitals reviewed. Constitutional: General: [...] longevity. Appropriate lead measurements. Presenting rhythm-APVP. AP-45%, SEXER->99%. 4 Atrial high rate episodes noted, max duration 2 min. No ventricular high rate episodes noted. Medications; Norvasc, Hydrochlorothiazide, Lisinopril, Lipitor, ASA. See scanned report. [place] remote f/u 06/08/2021. 05/05/[address] [facility] Dual Pacemaker Dx; SSS, PAT. DOI 03/05/[address] Bruno. [place] remote home monitor Q3 mo, Office pacer checks Q1 yr. Routine Pacemaker remote. Normal device function. Battery function-2.96V, 10.1 years remaining battery life to ANGIE. Appropriate lead measurements. Presenting rhythm-APVP. AP-43%, SEXER->99%. No Atrial high rate episodes noted. No ventricular high rate episodes noted. Medications; Norvasc, Hydrochlorothiazide, Lisinopril, Lipitor, ASA. See scanned report. Office pacemaker f/u and ROV with Dr Olea scheduled 06/21/2022. 03/18/22 2D Echo ([place]): EF 65-75% mild LVH no mod BOOKER [...] to ANGIE Episodes last 90 days/Comments: AF [place] 0 % 8 HVR episodes- stored episodes [...] SSS, PAT. DOI 03/05/[address] Bruno. [place] remote home monitor Q3 mo, Office pacer [...] intrinsic noted. Not pacemaker dependent today. AP-44%, SEXER->99%. Atrial high rate episodes noted. Ventricular high [...] Dinesh will return @ later time to [facility] for CxR. Office device f/u to be scheduled when patient sees Dr Olea in August. [place] remote f/u 10/31/2023. Personally reviewed EKG, Echocardiogram, pacemaker checks, and bloodwork/lipids. 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 B6/folic/B12/coffe e/phosphatid (NEURIVA PLUS BRAIN PERFORMANCE ORAL) Take by mouth 11/22/2024 added in this encounter Care Teams Manager Of Application Development Relationship Specialty Start Date End Date Rodrick Rincon MD [address] [place] [address] PCP - General Internal Medicine 02/06/18 07/02/24 documented as of this encounter
--- OUTSIDE RECORDS SUMMARY | 2024-11-29 05:17 | XMS_ITS | Encounter Summary ---
Author Organization [facility] Address [address] [address] Care Team Providers Care Feature Writer Name Role Phone Rodrick Rincon MD Primary Care Provider [phone] Reason for Visit * Cardiology (Routine) - Closed Specialty Diagnoses / Procedures Referred By Contac t Referred To Contact Diagnoses Sick sinus syndrome (CMS/HCC) (HCC) Atrial paroxysmal tachycardia (HCC) Procedures DEVICE CHECK - REMOTE Wilian Olea MD Phone: tel: fax: [facility] Referral ID Status Reason Start Date Expiration Date Visits Re quested Visits Authorized [id number] Closed 06/24/2021 07/24/2022 1 1 Encounter Details Date Type Department Care Team (Latest Contact Info) Description 09/14/2021 7:45 AM CDT Ancillary Procedure [facility] Cardiology [address] [facility] [address] [place] [phone] Sick sinus syndrome (CMS/HCC) (HCC); Atrial paroxysmal [...] on file 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 DOI 03/05/[address] Bruno. [place] remote home monitor Q3 mo, Office pacer checks Q1 yr. ?? Routine Pacemaker remote. Normal device function. Battery function-2.98V, 10.6 years remaining battery life to ANGIE. ?? Appropriate lead measurements. ?? Presenting rhythm-ASVP. AP-47%, CLAY WORKER->99%. ?? 2 Atrial high rate episodes noted, 6-56 seconds. ?? No ventricular high rate episodes noted. ?? Medications; Norvasc, Hydrochlorothiazide, Lisinopril, Lipitor, ASA. See scanned report. ?? Office pacemaker f/u and ROV with Dr Olea scheduled 12/17/2021. Wilian Olea MD [facility] Final Result documented in this encounter Visit Diagnoses Diagnosis Sick sinus syndrome (CMS/HCC) (HCC) Sinoatrial node dysfunction Atrial paroxysmal tachycardia (HCC) Paroxysmal supraventricular tachycardia Pacemaker Cardiac pacemaker in situ documented in this encounter Care Teams Feature Writer Relationship Specialty Start Date End Date Rodrick Rincon MD [address] [place] [address] PCP - General Internal Medicine 02/06/18 07/02/24 documented as of this encounter
--- OUTSIDE RECORDS SUMMARY | 2024-11-29 05:17 | XMS_ITS | Encounter Summary ---
Author Organization [facility] Address [address] [address] Care Team Providers Care Cuffer Name Role Phone Rodrick Rincon MD Primary Care Provider [phone] Reason for Visit * Cardiology (Routine) - Closed Specialty Diagnoses / Procedures Referred By Contac t Referred To Contact Diagnoses Sick sinus syndrome (CMS/HCC) (HCC) Atrial paroxysmal tachycardia (HCC) Procedures DEVICE CHECK - REMOTE Wilian Olea MD Phone: tel: fax: [facility] Referral ID Status Reason Start Date Expiration Date Visits Re quested Visits Authorized [id number] Closed 06/24/2021 07/24/2022 1 1 Encounter Details Date Type Department Care Team (Latest Contact Info) Description 03/22/2022 10:15 AM CDT Ancillary Procedure [facility] Cardiology [facility] [address] [place] [phone] Sick sinus syndrome (CMS/HCC) (HCC); Atrial paroxysmal [...] on file 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 DOI 03/05/[address] Bruno. [place] remote home monitor Q3 mo, Office pacer checks Q1 yr. ?? Routine Pacemaker remote. Normal device function. Battery function-2.96V, 10.1 years remaining battery life to ANGIE. ?? Appropriate lead measurements. ?? Presenting rhythm-APVP. AP-43%, SPRAY STAINER->99%. ?? No Atrial high rate episodes noted. [...] situ documented in this encounter Care Teams Cuffer Relationship Specialty Start Date End Date Rodrick Rincon MD [address] [place] [address] PCP - General Internal Medicine 02/06/18 07/02/24 documented as of this encounter
--- OUTSIDE RECORDS SUMMARY | 2024-11-29 05:17 | XMS_ITS | Encounter Summary ---
Author Organization [facility] Address [address] [address] Care Team Providers Care Manager Public Name Role Phone Rodrick Rincon MD Primary Care Provider [phone] Reason for Visit * (Routine) - Closed Specialty Diagnoses / Procedures Referred By Contac t Referred To Contact Diagnoses SSS (sick sinus syndrome) (CMS/HCC) (HCC) Procedures DEVICE CHECK - REMOTE Wilian Olea MD Phone: tel: fax: [facility] Referral ID Status Reason Start Date Expiration Date Visits Re quested Visits Authorized [id number] Closed 09/01/2020 10/01/2021 1 1 Encounter Details Date Type Department Care Team (Latest Contact Info) Description 06/08/2021 7:45 AM CDT Ancillary Procedure [facility] Medical [facility] Cardiology [facility] [address] SSS (sick sinus syndrome) (CMS/HCC) (HCC); Atrial paroxysmal tachycardia (CMS/HCC) (HCC); [...] on file 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 DOI 03/05/[address] Bruno[address] [employer] home monitor Q3 mo, Office pacer checks Q1 yr. Routine Pacemaker remote. Normal device function. Battery function-2.98V, 10.8 years remaining battery life to ANGIE. ?? Appropriate lead measurements. Presenting rhythm-ASVP. AP-46%, CAR SEAT UPHOLSTERER->99%. No Atrial high rate episodes noted. ?? No ventricular high rate episodes noted. Medications; Norvasc, Hydrochlorothiazide, Lisinopril, Lipitor, ASA. See scanned report. Garner remote f/u 09/14/2021. Wilian Olea MD CV CARDIAC SERVICES PROC EDURES Final Result documented in this encounter Visit Diagnoses Diagnosis SSS (sick sinus syndrome) (CMS/HCC) (HCC) Sinoatrial node dysfunction Atrial paroxysmal tachycardia (HCC) Paroxysmal supraventricular tachycardia History of cardiac pacemaker in situ documented in this encounter Care Teams Manager Public Relationship Specialty Start Date End Date Rodrick Rincon MD [address] [place] [address] PCP - General Internal Medicine 02/06/18 07/02/24 documented as of this encounter
--- OUTSIDE RECORDS SUMMARY | 2024-11-29 05:17 | XMS_ITS | Encounter Summary ---
Author Organization [facility] Address [address] [place] [address] Phone Care Team Providers Care Clam Dredge Boat Captain Name Role Phone Rodrick Rincon MD Primary Care Provider [phone] Reason for Referral * Diagnostic Imaging (Routine) - Closed Specialty Diagnoses / Procedures Referred By Contac t Referred To Contact Diagnoses Chronic bilateral low back pain without sciatica Procedures XR Spine Lumbar Ap Lat Flex Ext min 4 Views Miller Varela MD Phone: tel: fax: [facility] Referral ID Status Reason Start Date Expiration Date Visits Re quested Visits Authorized [id number] Closed 08/25/2021 09/24/2022 1 1 Encounter Details Date Type Department Care Team (Late st Contact Info) Description 08/25/2021 1:40 PM CDT Office Visit [facility] Orthopaedic Surgery [address] [place] [address] Miller Varela MD [address] [place] [address] Chronic bilateral low back pain without sciatica (Primary Dx); Sacroiliac joint pain; History of lumbar spinal fusion Social History Tobacco Use Types Packs/Day Years Used Date Smoking Tobacco: Former Pipe Smokeless Tobacco: Never Comments:smokes pipe Alcohol Use Standard Drinks/Week Comments Yes 2 (1 standard drink = 0.6 oz pur e alcohol) occassionally Sex and Gender Information Value Date Recorded Sex Assigned at Not on file Legal Sex Male 3:29 AM UNIFORM MAKER Gender Identity Not on file Sexual Orientation Not on file documented as of this encounter Progress Notes * Miller Varela MD - 08/25/2021 1:40 PM CDT NEW PATIENT VISIT CHIEF CONCERN Back pain HISTORY OF PRESENT ILLNESS Dinesh is a very 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 He reports that he had a lumbar spinal fusion surgery in 2019 for low back pain and ???sciatica?? . He stated that after the surgery, his ???sciatica?? resolved. His back pain improved but never quite resolved. In the last year, he has had more persistent back pain although it is still only mild to moderate in severity, is aching and sore as well as stiff in quality, is improved with sitting down, is exacerbated by walking and standing. After the surgery he did physical therapy and he tries to do some of the physical therapy exercises on his own however he has not seen a physical therapist since 2018. He has some difficulty with performing 70s exercises because they are done on the ground and hehas difficulty getting up off the ground. He denies any radiation of symptoms into his legs. Pain is located in the low back as well as the posterior pelvis. He denies any fever, chills, weight loss,night sweats, bowel or bladder incontinence, numbness, tingling, weakness, saddle anesthesia. He pastor s report a past medical history of prostate cancer and as far as he has where things are going well. He states that he has some weak stream related to this. PAST MEDICAL / SURGICAL / SOCIAL / FAMILY HISTORY: Past Medical History: Diagnosis Date ??? Anemia ??? Cancer (CMS/HCC) (HCC) prostate cancer ??? Colon polyp ??? Crohn's disease (CMS/HCC) (HCC) ??? HX OTHER MEDICAL Crohn's disease ??? HX OTHER MEDICAL Dyslipidemia ??? HX OTHER MEDICAL ca prostate ??? HX OTHER MEDICAL ? Pericarditis ??? Hyperlipidemia ??? Hypertension ??? Migraines ??? Pacemaker Past Surgical History: Procedure Laterality Date ??? SPINAL FUSION 10/2017 ??? TRANSURETHRAL RESECTION OF PROSTATE Social History Socioeconomic History ??? Marital status: Spouse name: Not on file ??? Number of children: Not on file ??? Years of education: Not on file ??? Highest education level: Not on file Occupational History ??? Not on file Tobacco Use ??? Smoking status: Former Smoker Types: Pipe ??? Smokeless tobacco: Never Used ??? Tobacco comment: smokes pipe Substance and Sexual Activity ??? Alcohol use: Yes Alcohol/week: 2.0 standard drinks Types: 2 Cans of beer per week Comment: occassionally ??? Drug use: No ??? Sexual activity: Not on file Other Topics Concern ??? Not on file Social History Narrative ??? Not on file Social Determinants of Health Financial Resource Strain: ??? Difficulty of Paying Living Expenses: Not on file Food Insecurity: ??? Worried About Running Out of Food in the Last Year: Not on file ??? Ran Out of Food in the Last Year: Not on file Transportation Needs: ??? Lack of Transportation (Medical): Not on file ??? Lack of Transportation (Non-Medical): Not on file Physical Activity: ??? Days of Exercise per Week: Not on file ??? Minutes of Exercise per Session: Not on file Stress: ??? Feeling of Stress : Not on file Social Connections: ??? Frequency of Communication with Friends and Family: Not on file ??? Frequency of Social Gatherings with Friends and Family: Not on file ??? Attends Taoism Services: Not on file ??? Active Member of Clubs or Organizations: Not on file ??? Attends Club or Organization Meetings: Not on file ??? Marital Status: Not on file Intimate Partner Violence: ??? Fear of Current or Ex-Partner: Not on file ??? Emotionally Abused: Not on file ??? Physically Abused: Not on file ??? Sexually Abused: Not on file Family History Problem Relation Age of Onset ??? Alzheimer's disease Mother MEDICATIONS: Current Outpatient Medications Medication Sig Dispense Refill ??? acetaminophen (PAIN RELIEVER) 500 mg capsule take 2 capsule by oral route every 6 hours as needed 0 0 ??? amLODIPine (NORVASC) 2.5 mg tablet TAKE 1 TABLET(2.5 MG) BY MOUTH DAILY 90 tablet 2 ??? aspirin 81 mg enteric coated tablet Take 81 mg by mouth daily ??? sjudnui-qjxzpsroqmgru-tjoybafv (EXCEDRIN MIGRAINE) 250-250-65 mg per tablet one tablet as needed for migraine 0 0 ??? atorvastatin (LIPITOR) 20 mg tablet take 1 tablet by oral route every day 0 0 ??? b complex vitamins (B COMPLEX-VITAMIN B12) tablet Take 5,000 tablets by mouth daily. ??? biotin 5,000 mcg tablet,disintegrating 5,000 mcg. 0 0 ??? calcium carbonate-vitamin D3 (CALCIUM 500 + D) 500 mg(1,250mg) -400 unit tablet (Patient takingdifferently: Take by mouth 2 (two) times a day. ) 0 0 ??? cholecalciferol (VITAMIN D3) 2,000 unit tablet take 1 by Oral route every day 0 0 ??? clonazePAM (KlonoPIN) 0.5 mg tablet take 1 tablet by oral route every day 0 0 ??? coenzyme O46-xjkokhq E (CO Q-10, WITH VIT E,) 100-5 mg-unit capsule 1 tablet by mouth once a day 0 0 ??? docusate sodium (DOK) 100 mg capsule Take 100 mg by mouth 2 (two) times a day as needed for constipation. ??? folic acid (FOLVITE) 400 mcg tablet Take 400 mcg by mouth daily. ??? stifvv-yvi-S-Mn-herb#21 (GLUCOSAMINE-MSM COMPLEX) tablet 0 0 ??? hydroCHLOROthiazide (HYDRODIURIL) 25 mg tablet TAKE 1 TABLET(25 MG) BY MOUTH DAILY 90 tablet 2 ??? iron bisgly,ps-FA-B-C#12-succ (IROSPAN 24/6) 65 mg-65 mg -1,000 mcg (24) tablet 0 0 ??? lisinopriL (PRINIVIL,ZESTRIL) 40 mg tablet TAKE 1 TABLET(40 MG) BY MOUTH DAILY 90 tablet 3 ??? meclizine (ANTIVERT) 25 mg tablet take 1 tablet by oral route 3 times every day as needed 0 0 ??? melatonin 5 mg tablet 5 mg. 0 0 ??? multivitamin tablet tablet take 1 tablet by oral route every day with food 0 0 ??? omega-3 fatty acids-vitamin E (FISH OIL) 1,000 mg capsule take 1 by Oral route once 0 0 ??? ondansetron ODT (ZOFRAN-ODT) 4 mg disintegrating tablet Take 4 mg by mouth every 8 (eight) hours as needed for nausea or vomiting. ??? ustekinumab (STELARA) injection Inject 90 mg under the skin. Inject subq every 8 weeks ??? white petrolatum-mineral oil (eucerin) cream 0 0 No current facility-administered medications for this visit. ALLERGIES: No Known Allergies REVIEW OF SYSTEMS: Review of systems was obtained from the patient. Notable findings listed above in the HPI. PHYSICAL EXAMINATION: GENERAL: In no acute distress. Well-developed and well nourished. PSYCHOLOGICAL: Alert and oriented. Cooperative, normal stated mood, congruent affect. HENT: Normocephalic, atraumatic. Hearing adequate for conversation. EYES: Non-icteric sclera. ABDOMEN: Soft, non-tender; no palpable masses. RESPIRATORY: Non-labored breathing. No audible cough or wheeze. CARDIOVASCULAR: No edema. Bilateral lower extremities are warm and well perfused. SKIN: No rashes or open wounds involving posterior torso, posterior pelvis, lower extremities. NEUROLOGIC: Strength: 5/5 bilaterally with hip flexion, knee extension, knee flexion, ankle dorsiflexion, ankleeversion, ankle inversion, ankle plantarflexion, and great toe extension. Sensation: intact light touch sensation throughout both lower extremities. Reflexes: intact and symmetric in bilateral lower extremities. Babinski downgoing bilaterally. No clonus. Gait: able to heel walk, toe walk, and perform tandem gait. MUSCULOSKELETAL: Inspection: Normal alignment of lumbar spine. No shift or scoliosis. Normal posture. Equal iliac crest heights. No pelvic asymmetry. Palpation: There is some tenderness to palpation of the lumbosacral junction bilaterally as well asthe posterior superior iliac spine and the posterior aspect of the sacroiliac joint bilaterally. ROM: Active lumbar spine ROM is restricted with extension to only 5?? which is somewhat painful. Flexion is full and nonpainful.. Passive left hip ROM is full with some pain on internal rotation. On the right, flexion is to 90??, internal rotation to 0, external rotation of 15?? all of which is slightly Special Tests: Supine SLR: Negative Logroll, FADIR, Hip Scour: Positive on the right Hip distraction: Negative SUJATA/Freeman's, Thigh thrust, sacral compression, Gaenslen's: Positive bilaterally REVIEW OF IMAGING AND DIAGNOSTIC STUDIES: X-rays of the lumbar spine were ordered today and will be reviewed subsequent IMPRESSION: 1. Chronic low back pain without radiation, extension bias 2. History of lumbar spinal fusion 3. Bilateral sacroiliac joint pain PLAN: 1. I discussed our impression, imaging findings, and treatment plan in detail with the patient, with a focus on the etiology, natural history, and management of their pain. We discussed the mainstay of treatment is physical therapy, activity modification, and use of pain medications (NSAIDs and/or acetaminophen) as needed. They demonstrated understanding of this discussion and were in agreement with the plan. All questions were answered. 2. Activity / bracing: As tolerated 3. Imaging: X-ray of the lumbar spine was ordered today and will be reviewed subsequent 4. Therapy: Anticipate role for physical therapy in the future 5. Injections: Anticipate role for sacroiliac joint corticosteroid injections 6 Follow-up: We will call with results and discuss next steps in management. Miller Varela M.D. Group Segment Consultant Division of Physical Medicine and Rehabilitation Department of Orthopaedic Surgery [facility] Miller Varela M.D. dictating using M Modal Fluency Direct. Vice President Tax variances may occur. documented in this encounter Plan of Treatment Not on file documented as of this encounter Results * XR Spine Lumbar [...] documented in this encounter Visit Diagnoses Diagnosis Chronic bilateral low back pain without sciatica- Primary Sacroiliac joint pain Disorders of sacrum History of lumbar spinal fusion Low back pain without sciatica, unspecified back pain laterality, unspecified chronicity documented in this encounter Care Teams Clam Dredge Boat Captain Relationship Specialty Start Date End Date Rodrick Rincon MD [address] [place] [address] PCP - General Internal Medicine 02/06/18 07/02/24 documented as of this encounter
--- OUTSIDE RECORDS SUMMARY | 2024-11-29 05:17 | XMS_ITS | Encounter Summary ---
Author Organization [facility] Healthcare Address [address] [place] [address] Care Team Providers Care Enroute Controller Name Role Phone Rodrick Rincon MD Primary Care Provider [phone] Reason for Visit * Reason Onset Date Comments Chart Review 10/11/2023 Encounter Details Date Type Department Care Team (Late st Contact Info) Description 10/11/[address] [facility] Accountable Care Organization [address] [place] [address] Hilaria Lepe MA [address] [place] [address] [address] Chart Review Social History Tobacco Use Types Packs/Day Years Used Date Smoking Tobacco: Former Pipe Smokeless Tobacco: Never Comments:smokes pipe Alcohol Use Standard Drinks/Week Comments Yes 2 (1 standard drink = 0.6 oz pur e alcohol) occassionally Sex and Gender Information Value Date Recorded Sex Assigned at Not on file Legal Sex Male 3:29 AM RUBBISH COLLECTOR Gender Identity Not on file Sexual Orientation Not on file documented as of this encounter Miscellaneous Notes * Telephone Encounter - Hilaria Lepe MA - 10/11/2023 1:54 PM CST ACO Medication Refill Note Dinesh Saha was identified on [employer] refill report for a past due/due soon refill of Atorvastatin. According to this report, Atorvastatin was last refilled on 07/13/2023 for a 90 day supply. Goal is to have enough medicine so that 80% or more of the days are covered each year. Filled 90 day supply on 09/23/2023. The patient was not contacted during this encounter. Hilaria Lepe CMA Patient Quality Disbursing Agent [facility] [phone] ISH COLLECTOR documented in this encounter Plan of Treatment Not on file documented as of this encounter Visit Diagnoses Not on filedocumented in this encounter Care Teams Enroute Controller Relationship Specialty Start Date End Date Rodrick Rincon MD [address] [address] PCP - General Internal Medicine 02/06/18 07/02/24 documented as of this encounter
--- OUTSIDE RECORDS SUMMARY | 2024-11-29 05:17 | XMS_ITS | Encounter Summary ---
Author Organization [facility] Address [address] [place] [address] Care Team Providers Care Cullet Crusher And Washer Name Role Phone Rodrick Rincon MD Primary Care Provider [phone] Encounter Details Date Type Department Care Team (Late st Contact Info) Description 07/21/2023 Telephone [facility] [address], [place] [address] Julianna Aponte, JO Social History Tobacco Use Types Packs/Day Years Used Date Smoking Tobacco: Former Pipe Smokeless Tobacco: Never Comments:smokes pipe Alcohol Use Standard Drinks/Week Comments Yes 2 (1 standard drink = 0.6 oz pur e alcohol) occassionally Sex and Gender Information Value Date Recorded Sex Assigned at Not on file Legal Sex Male 3:29 AM WELT SLASHER Gender Identity Not on file Sexual Orientation Not on file documented as of this encounter Miscellaneous Notes * Telephone Encounter - Cari Huitron RN - 07/24/2023 12:21 PM CDT I contacted patient and informed of ventricular noise and inhibition of pacing. Ventricular noise episodes are short 2-8 second durations. I would like to do some additional testing on his ventricular lead to see if I would be able to program around it. Patient is seeing Dr Olea this afternoon at 3:00 and said he would discuss this with Dr Olea.I offered to schedule his appointment in the [facility] office while on the telephone. However he said he will schedule a device f/u after he sees Dr Oela. FYI Dr Olea and patient wanted you to be aware. * Telephone Encounter - Julianna Aponte RN - 07/21/2023 1:44 PM CDT Cari I just dictated a remote interrogation on this patient from April 25, 2023 I just wanted to make surethat I point out so that you can convey this over possibly to Dr. Olea that on the presenting EGM the patient does have episodes of noise on the RV lead with inhibition of pacing and several stored episodes of high ventricular heart rate occurrences that are also noise on the RV lead the patientof note has an underlying rhythm of complete heart block and is RV paced 100% of the time, with what appears to be inhibition of pacing during these episodes. documented in this encounter Plan of Treatment Not on file documented as of this encounter Visit Diagnoses Not on filedocumented in this encounter Care Teams Cullet Crusher And Washer Relationship Specialty Start Date End Date Rodrick Rincon MD [address] [place] [address] PCP - General Internal Medicine 02/06/18 07/02/24 documented as of this encounter
--- OUTSIDE RECORDS SUMMARY | 2024-11-29 05:17 | XMS_ITS | Encounter Summary ---
Author Organization [facility] Address [address] [place] [address] Care Team Providers Care Blanket Washer Name Role Phone Rodrick Rincon MD Primary Care Provider [phone] Encounter Details Date Type Department Care Team (Late st Contact Info) Description 03/18/[address] [facility] Cardiology [address] [place] [address] Wilian Olea MD [address] [address] Social History Tobacco Use Types Packs/Day Years Used Date Smoking Tobacco: Former Pipe Smokeless Tobacco: Never Comments:smokes pipe Alcohol Use Standard Drinks/Week Comments Yes 2 (1 standard drink = 0.6 oz pur e alcohol) occassionally Sex and Gender Information Value Date Recorded Sex Assigned at Not on file Legal Sex Male 3:29 AM LIME VAT TENDER Gender Identity Not on file Sexual Orientation Not on file documented as of this encounter Plan of Treatment Not on file documented as of this encounter Procedures Procedure Name Priority Date/Time Associated Diagnosis Comments CARDIOLOGY DOCUMENT SCAN Routine 03/18/2022 documented in this encounter Results * Cardiology Document Scan (03/18/2022) Anatomical Region Laterality Modality Other Wilian Olea MD CV CARDIAC SERVICES PROC EDURES Final Result documented in this encounter Visit Diagnoses Not on filedocumented in this encounter Care Teams Blanket Washer Relationship Specialty Start Date End Date Rodrick Rincon MD [address] [place] [address] PCP - General Internal Medicine 02/06/18 07/02/24 documented as of this encounter
--- OUTSIDE RECORDS SUMMARY | 2024-11-29 05:17 | XMS_ITS | Encounter Summary ---
Author Organization [facility] Address [address] [place] [address] Care Team Providers Care Debeaker Name Role Phone Rodrick Rincon MD Primary Care Provider [phone] Reason for Visit * Cardiology (Routine) - Closed Specialty Diagnoses / Procedures Referred By Contac t Referred To Contact Diagnoses SSS (sick sinus syndrome) (CMS/HCC) (HCC) Atrial paroxysmal tachycardia (HCC) Pacemaker Procedures DEVICE CHECK - IN OFFICE Wilain Olea MD Phone: tel: fax: [facility] Referral ID Status Reason Start Date Expiration Date Visits Re quested Visits Authorized [id number] Closed 12/02/2020 01/01/2022 1 1 Encounter Details Date Type Department Care Team (Latest Contact Info) Description 12/17/2021 2:00 PM BOBBIN CLEANER HAND Ancillary Procedure [facility] Cardiology [address] [place] [id number] SSS (sick sinus syndrome) (CMS/HCC) (HCC); Atrial paroxysmal tachycardia (CMS/HCC) (HCC); Pacemaker; History of cardiac pacemaker in situ Social History Tobacco Use Types Packs/Day Years Used Date Smoking Tobacco: Former Pipe Smokeless Tobacco: Never Comments:smokes pipe Alcohol Use Standard Drinks/Week Comments Yes 2 (1 standard drink = 0.6 oz pur e alcohol) occassionally Sex and Gender Information Value Date Recorded Sex Assigned at Not on file Legal Sex Male 3:29 AM BOBBIN CLEANER HAND Gender Identity Not on file Sexual Orientation Not on file documented as of this encounter Plan of Treatment Not on file documented as of this encounter Procedures Procedure Name Priority Date/Time Associated Diagnosis Comments DEVICE CHECK - IN OFFICE Routine 12/17/2021 2:32 PM BOBBIN CLEANER HAND SSS (sick sinus syndrome) (CMS/HCC) (HCC) Atrial paroxysmal tachycardia (CMS/HCC) (HCC) Pacemaker documented in this encounter Results * DEVICE CHECK - IN OFFICE (12/17/2021 2:32 PM BOBBIN CLEANER HAND) Anatomical Region Laterality Modality Other Narrative 12/22/2021 5:[address] [facility] Dual Pacemaker Dx; SSS, PAT. DOI 03/05/[address] Bruno[address] [employer] remote home monitor Q3 mo, Office pacer checks Q1 yr. Battery Advisory. Office pacemaker interrogation performed by [employer] sales representative womens health. Battery function-2.98V, 10.6 years remaining battery life to ANGIE. Presenting rhythm-ASVP. AP-50%, PROFESSOR OF COMMUNICATION->99%. See scanned report. [employer] remote f/u 03/22/2022. Wilian Olea MD CV CARDIAC SERVICES PROC EDURES Final Result documented in this encounter Visit Diagnoses Diagnosis SSS (sick sinus syndrome) (CMS/HCC) (HCC) Sinoatrial node dysfunction Atrial paroxysmal tachycardia (HCC) Paroxysmal supraventricular tachycardia Pacemaker Cardiac pacemaker in situ History of cardiac pacemaker in situ documented in this encounter Care Teams Debeaker Relationship Specialty Start Date End Date Rodrick Rincon MD [address] [place] [address] PCP - General Internal Medicine 02/06/18 07/02/24 documented as of this encounter
--- OUTSIDE RECORDS SUMMARY | 2024-11-29 05:18 | XMS_ITS | Encounter Summary ---
Author Organization [facility] Address [address] [place] [address] Care Team Providers Care Chiller Hand Name Role Phone Rodrick Rincon MD Primary Care Provider [phone] Reason for Visit * Reason Comments Follow-up 4 mo follow up on SS S, AV block, PAT, HTN Encounter Details Date Type Department Care Team (Latest Contact Info) Description 02/06/2018 1:15 PM CDT Office Visit [facility] [address] [place] [address] Wilian Olea MD [address] [facility] [address] [place], [place] [id number] Benign hypertension (Primary Dx); Atrial paroxysmal tachycardia (CMS/HCC); Complete atrioventricular block (CMS/HCC); Dyslipidemia; Pacemaker Social History Tobacco Use Types Packs/Day Years Used Date Smoking Tobacco: Some Days Pipe Smokeless Tobacco: Never Comments:smokes pipe Alcohol Use Standard Drinks/Week Comments Yes 2 (1 standard drink = 0.6 oz pur e alcohol) occassionally Sex and Gender Information Value Date Recorded Sex Assigned at Not on file Legal Sex Male 3:29 AM 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 Gender Identity Not on file Sexual Orientation Not on file documented as of this encounter Last Filed Vital Signs Vital Sign Reading Time Taken Comments Blood Pressure 132/70 02/06/2018 1:13 PM CDT Pulse 71 02/06/2018 1:13 PM CDT Temperature - - Respiratory Rate - - Oxygen Saturation 94% 02/06/2018 1:13 PM CDT Inhaled Oxygen Concentration - - Weight 75.8 kg (167 lb) 02/06/2018 1:13 PM CDT Height 175.3 cm (5' 9 ) 02/06/2018 1:13 PM CDT Body Mass Index 24.66 02/06/2018 1:13 PM CDT documented in this encounter Progress Notes * Wilian Olea MD - 02/06/2018 1:15 PM CDT [facility] DATE OF VISIT: 02/06/2018 CHIEF COMPLAINT Chief Complaint Patient presents with ??? Follow-up 4 mo follow up on SSS, AV block, PAT, HTN ASSESSMENT Diagnoses and all orders for this visit: Benign hypertension (Primary) Atrial paroxysmal tachycardia (CMS/HCC) Complete atrioventricular block (CMS/HCC) Dyslipidemia Pacemaker PLAN/RECOMMENDATIONS 1. BP under fair control. Continue monitor at home. Monitor BP on routine basis. Call with readings. Continue consistent cardiovascular exercise, weight loss, medication compliance, and low-sodium diet. May change Amlodipine if BP elevated on average. No change at this time. 2. Routine PPM normal fxn, 99% RV pacing last check no new arrhythmias 3. Monitor weight, ensure adequate caloric intake. 4. Marcus doing well for his Crohn's, colonoscopy last week doing well overall 5. Will review blood work from PCP Over 50% of this visit counseling SSS/PPM, HTN, lipids, medications, lifestyle modification. Follow up in the office in 6 months. Thank you for allowing me the privilege of participating in the care this very pleasant patient. Please do not hesitate to contact me with any additional questions or concerns. HPI Dinesh Saha is a 77 y.o. male with a PMHx of Crohn's [...] having back surgery with Dr. Robert at [facility] in early October. He denies chest [...] NOtes HR a little higher since surgery. MEDICAL HISTORY Past Medical History: Diagnosis Date ??? Anemia ??? Cancer (CMS/HCC) prostate cancer ??? Colon polyp ??? Crohn's disease (CMS/HCC) ??? HX OTHER MEDICAL Crohn's disease ??? HX OTHER MEDICAL Dyslipidemia ??? HX OTHER MEDICAL ca prostate ??? HX OTHER MEDICAL ? Pericarditis ??? Hyperlipidemia ??? Hypertension ??? Migraines ??? Pacemaker Social History Substance Use Topics ??? Smoking status: Current Some Day Smoker Types: Pipe ??? Smokeless tobacco: Never Used Comment: smokes pipe ??? Alcohol use 1.2 oz/week 2 Cans of beer per week Comment: occassionally Family History Problem Relation Age of Onset ??? Alzheimer's disease Mother MEDICATIONS HOME MEDICATIONS : acetaminophen (PAIN RELIEVER) 500 mg capsule amLODIPine (NORVASC) 2.5 mg tablet aspirin 81 mg tablet mctkvzc-auqiurtmwoxzc-hbcwniop (EXCEDRIN MIGRAINE) 250-250-65 mg per tablet atorvastatin (LIPITOR) 20 mg tablet b complex vitamins (B COMPLEX-VITAMIN B12) tablet biotin 5,000 mcg tablet,disintegrating calcium carbonate-vitamin D3 (CALCIUM 500 + D) 500 mg(1,250mg) -400 unit tablet cholecalciferol (VITAMIN D3) 2,000 unit tablet clonazePAM (KlonoPIN) 0.5 mg tablet coenzyme Z06-qqhtwya E (CO Q-10, WITH VIT E,) 100-5 mg-unit capsule folic acid (FOLVITE) 400 mcg tablet pypvuj-tor-L-Mn-herb#21 (GLUCOSAMINE-MSM COMPLEX) tablet hydroCHLOROthiazide (HYDRODIURIL) 25 mg tablet iron bisgly,ps-FA-B-C#12-succ (IROSPAN 24/) 65 mg-65 mg -1,000 mcg (24) tablet lisinopril (PRINIVIL,ZESTRIL) 40 mg tablet melatonin 5 mg tablet mesalamine (LIALDA) 1.2 gram EC tablet multivitamin tablet tablet omega-3 fatty acids-vitamin E (FISH OIL) 1,000 mg capsule ondansetron ODT (ZOFRAN-ODT) 4 mg disintegrating tablet ustekinumab (STELARA) injection white petrolatum-mineral oil (eucerin) cream meclizine (ANTIVERT) 25 mg tablet hydroCHLOROthiazide (HYDRODIURIL) 25 mg tablet ALLERGIES No Known Allergies REVIEW OF SYSTEMS Review of Systems Constitution: Positive for weight loss. Negative for decreased appetite, diaphoresis, fever, weakness, malaise/fatigue and night sweats. HENT: Negative for hearing loss and nosebleeds. [...] rash and suspicious lesions. Musculoskeletal: Positive for back pain and joint pain. Negative for falls, muscle weakness and myalgias. Gastrointestinal: Negative for abdominal pain, heartburn, hematemesis, melena and nausea. Genitourinary: Negative for dysuria, hematuria and nocturia. Neurological: Positive for dizziness. Negative for excessive daytime sleepiness, focal weakness, headaches, light-headedness and loss of balance. Psychiatric/Behavioral: Negative for altered mental status, depression and memory loss. The patientis not nervous/anxious. Allergic/Immunologic: Negative for environmental allergies. PHYSICAL EXAM Vitals: 02/06/18 1313 BP: 132/70 Pulse: 71 SpO2: 94% Weight: 75.8 kg (167 lb) Height: 175.3 cm (5' 9 ) Body mass index is 24.66 kg/m??. Physical Exam Constitutional: He is oriented to person, place, and time. He appears well- developed and well-nourished. He is cooperative. No distress. HENT: Head: Normocephalic and atraumatic. Right Ear: External ear normal. Left Ear: External ear normal. Nose: Nose normal. Mouth/Throat: Oropharynx is clear and moist and mucous membranes are normal. Normal dentition. Eyes: Conjunctivae, EOM and lids are normal. No scleral icterus. Neck: Normal range of motion. Neck supple. Normal carotid pulses, no hepatojugular reflux and no JVD present. Carotid bruit is not present. No tracheal deviation present. No thyromegaly present. Cardiovascular: Normal rate, regular rhythm, S1 normal, S2 normal, normal heart sounds, intact distal pulses and normal pulses. Exam reveals no gallop, no S3, no S4, no distant heart sounds and no friction rub. No murmur heard. Pulmonary/Chest: Effort normal and breath sounds normal. No respiratory distress. He has no wheezes. He has no rales. He exhibits no tenderness. Palp subcut pacemaker left ant chest wall, incision well healed no tenderness Abdominal: Soft. Bowel sounds are normal. He exhibits no distension and no mass. There is no tenderness. There is no rebound and no guarding. Musculoskeletal: Normal range of motion. He exhibits no edema, tenderness or deformity. Lymphadenopathy: He has no cervical adenopathy. Neurological: He is alert and oriented to person, place, and time. No cranial nerve deficit. He exhibits normal muscle tone. Coordination normal. Skin: Skin is warm and dry. No ecchymosis, no petechiae and no rash noted. He is not diaphoretic. No cyanosis or erythema. No pallor. Nails show no clubbing. Psychiatric: He has a normal mood and affect. His speech is normal and behavior is normal. Judgmentnormal. LABS AND OTHER DIAGNOSTIC TESTS No visits with results within 3 Month(s) from this visit. Latest known visit with results is: Hospital Outpatient Visit on 12/06/2016 Component Date Value Ref Range Status ??? Quantiferon Gold TB 12/06/2016 Negative Negative Final ??? TB-NIL 12/06/2016 0.00 IUnits/ml Final ? ? mitogen-NIL 12/06/2016 >10.00 IUnits/ml Final ??? NIL result 12/06/2016 0.02 IUnits/ml Final Results for orders placed or performed during the hospital encounter of 12/06/16 Blood quantiferon gold TB Result Value Ref Range Quantiferon Gold TB Negative Negative TB-NIL 0.00 IUnits/ml mitogen-NIL >10.00 IUnits/ml NIL result 0.02 IUnits/ml Personally reviewed EKG, Echocardiogram, stress test, and bloodwork/lipids. Nando Olea MD, FACC documented in this encounter Plan of Treatment Not on file documented as of this encounter Visit Diagnoses Diagnosis Benign hypertension- Primary Essential hypertension, benign Atrial paroxysmal tachycardia (HCC) Paroxysmal supraventricular tachycardia Complete atrioventricular block (CMS/HCC) (HCC) Atrioventricular block, complete Dyslipidemia Other and unspecified hyperlipidemia Pacemaker Cardiac pacemaker in situ documented in this encounter Care Teams Chiller Hand Relationship Specialty Start Date End Date Rodrick Rincon MD [address] [place] [address] PCP - General Internal Medicine 02/06/18 07/02/24 documented as of this encounter
--- OUTSIDE RECORDS SUMMARY | 2024-11-29 05:18 | XMS_ITS | Encounter Summary ---
Author Organization [facility] Address [address] [place] [address] Care Team Providers Care School Admissions Representative Name Role Phone Fiorella Barcenas MD Primary Care Provider + Encounter Details Date Type Department Care Team (Late st Contact Info) Description 01/30/2018 1:57 PM 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 Anesthesia Event [facility] [address] [place] [id number] Radu Benedict MD [facility] [place] [facility] [place] [address] Anesthesia Record Procedure Summary Procedure Name Responsible Anesthesiologist Anesthesia Start Time Anesthesia Stop Time Colonoscopy Radu Benedict MD 01/30/18 1357 03/05/14 1422 Events Date Time Event Comment 01/30/2018 1330 1356 In Room 1357 An Start 1357 An Start Data 1401 Anesthesia Ready 1403 Patient Positioned Laterally 1403 An Induction The patient was reevaluated immediately before moderate or deep sedation use and before anesthesia induction. 1403 Proc Start 1415 Proc Fin 1416 an stop data 1419 Out of Room 1422 Handoff to RN I completed my handoff to the receiving nurse during which we: 1. Patient identified 2. Responsible provider identified 3. Pertinent medical history reviewed 4. Procedure type and surgical course discussed 5. Intraoperative anesthetic management and any significant issues discussed 6. Expectations and concerns for postop period discussed 7. Questions solicited from receiving nurse 8. Patient disposition at the time of handoff: PACU 1422 An Stop 1424 Release from care Meds Name Total lidocaine (cardiac) syringe 2 % 5 mL propofol 140 mg Lactated Ringer's (LR) infusion 300 mL * Agents Name O2 * Blood No blood administrations on file. Lines, Drains, and Airways Type Details Placement Removal Peripheral IV Placement Date: 05/14; Placement Time: 134; Catheter Size: 20 G; Orientation: Right; Location: Forearm; Local Anes: None; Insertion Attempts: 1; Patient Tolerance: Tolerated well; Removal Date: 01/30/18; Removal Time: 15101/30/18 1342 by Giselle Mary RN 01/30/18 151 by Olvin Lepe RN documented in this encounter Social History Tobacco Use Types Packs/Day Years Used Date Smoking Tobacco: Some Days Pipe Smokeless Tobacco: Never Comments:smokes pipe Alcohol Use Standard Drinks/Week Comments Yes 2 (1 standard drink = 0.6 oz pur e alcohol) occassionally Sex and Gender Information Value Date Recorded Sex Assigned at Not on file Legal Sex Male 3:29 AM 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 Gender Identity Not on file Sexual Orientation Not on file documented as of this encounter OR Notes * Anesthesia Postprocedure Evaluation - Dariana Flood CRNA - 01/30/2018 2:24 PM CST Patient: Dinesh Saha Procedure Summary Date: 01/30/18 [place] / [place] [facility] [place] [facility] Anesthesia Start: 1357 Anesthesia Stop: 1421 Procedure: Colonoscopy (N/A ) Diagnosis: (COLON) Provider: Dakota Bar MD Responsible Provider: Radu Benedict MD Anesthesia Type: general/TIVA ASA Status: 3 Anesthesia Type: general/TIVA Last vitals BP Temp Pulse Resp SpO2 Anesthesia Post Evaluation Patient location: GI recovery area. Patient participation: complete - patient participated Level of consciousness: arouses [employer] and follows simple commands Pain management: adequate Airway patency: adequate Anesthetic complications: no Cardiovascular status: acceptable Respiratory status: acceptable Hydration status: acceptable Pt is: normothermic Nausea/Vomiting status: none MENTAL IRON 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 * Anesthesia Preprocedure Evaluation - Radu Benedict MD - 01/30/2018 1:29 PM CST Anesthesia Evaluation Dinesh Saha is a 77 y.o. male Patient Active Problem List Diagnosis ??? Complete atrioventricular block (CMS/HCC) ??? History of cardiac pacemaker in situ ??? History of malignant neoplasm of prostate ??? Sick sinus syndrome (CMS/HCC) ??? Dizziness ??? Lightheadedness ??? Benign hypertension ??? Weight decreased ??? Hypertension ??? Dyslipidemia ??? Crohn's disease in remission (CMS/HCC) ??? Crohn's disease (CMS/HCC) ??? Atrial paroxysmal tachycardia (CMS/HCC) Past Medical History: Diagnosis Date ??? Anemia [...] FUSION 10/2017 ??? TRANSURETHRAL RESECTION OF PROSTATE No Known Allergies HOME MEDICATIONS : acetaminophen (PAIN RELIEVER) 500 mg capsule amLODIPine (NORVASC) 2.5 mg tablet aspirin 81 mg tablet bzsauwn-ldwfvlqkdhcqi-rizbehar (EXCEDRIN MIGRAINE) 250-250-65 mg per tablet atorvastatin (LIPITOR) 20 mg tablet b complex vitamins (B COMPLEX-VITAMIN B12) tablet biotin 5,000 mcg tablet,disintegrating calcium carbonate-vitamin D3 (CALCIUM 500 + D) 500 mg(1,250mg) -400 unit tablet cholecalciferol (VITAMIN D3) 2,000 unit tablet clonazePAM (KlonoPIN) 0.5 mg tablet coenzyme H83-lstjubd E (CO Q-10, WITH VIT E,) 100-5 mg-unit capsule folic acid (FOLVITE) 400 mcg tablet rmrenn-tfc-X-Mn-herb#21 (GLUCOSAMINE-MSM COMPLEX) tablet hydroCHLOROthiazide (HYDRODIURIL) 25 mg tablet iron bisgly,ps-FA-B-C#12-succ (IROSPAN 20/05) 65 mg-65 mg -1,000 mcg (24) tablet lisinopril (PRINIVIL,ZESTRIL) 40 mg tablet meclizine (ANTIVERT) 25 mg tablet melatonin 5 mg tablet mesalamine (LIALDA) 1.2 gram EC tablet multivitamin tablet tablet omega-3 fatty acids-vitamin E (FISH OIL) 1,000 mg capsule ondansetron ODT (ZOFRAN-ODT) 4 mg disintegrating tablet ustekinumab (STELARA) injection white petrolatum-mineral oil (eucerin) cream Current Facility-Administered Medications: ??? Lactated Ringer's (LR) infusion, 30 mL/hr, intravenous, Continuous ??? [MAR Hold] lidocaine (XYLOCAINE) 10 mg/mL (1 %) injection 1-5 mg, 0.1-0.5 mL, subcutaneous, Once PRN ??? [MAR Hold] sodium chloride 0.9% flush 0.5-20 mL, 0.5-20 mL, intra-catheter, PRN Social History Smoking Status ??? Current Some Day Smoker ??? Types: Pipe Smokeless Tobacco ??? Never Used Comment: smokes pipe Alcohol Use ??? 1.2 oz/week ??? 2 Cans of beer per week Comment: occassionally Drug Use No Family History Problem Relation Age of Onset ??? Alzheimer's disease Mother PAT Physical Exam There were no vitals filed for this visit. PT: No results found for requested labs within last 720 hours. INR: No results found for requested labs within last 720 hours. APTT: No results found for requested labs within last 720 hours. Hgb A1C: No results found for requested labs within last 720 hours. CBC RBC: No results found for requested labs within last 720 hours. RDW: No results found for requested labs within last 720 hours. MCHC: No results found for requested labs within last 720 hours. MCH: No results found for requested labs within last 720 hours. MCV: No results found for requested labs within last 720 hours. Hct: No results found for requested labs within last 720 hours. Hgb: No results found for requested labs within last 720 hours. WBC: No results found for requested labs within last 720 hours. MPV: No results found for requested labs within last 720 hours. Platelets: No results found for requested labs within last 720 hours. RDW CV: No results found for requested labs within last 720 hours. RDW Sd: No results found for requested labs within last 720 hours. BMP Glucose: No results found for requested labs within last 720 hours. Calcium: No results found for requested labs within last 720 hours. Sodium: No results found for requested labs within last 720 hours. Potassium: No results found for requested labs within last 720 hours. CO2: No results found for requested labs within last 720 hours. Chloride: No results found for requested labs within last 720 hours. BUN: No results found for requested labs within last 720 hours. Creatinine: No results found for requested labs within last 720 hours. DOS Physical Exam Medical history, medications, and allergies reviewed. Attestation: I endorse the findings of the anesthesia pre-evaluation assessment dated: 01/30/2018. Airway Exam: Mallampati: I Cervical ROM: FROM Cardiovascular Exam: Rate: regular Pulmonary Exam: LCTA Anesthesia Plan ASA 3 Planned anesthesia: General/TIVA Informed Consent: Discussed plan with CENTER LEAD CONSULTANT. Anesthesia plan and risks discussed with patient. Consent and Attending signature: I and/or my designee have discussed the anesthesia plan, benefits, possible alternatives, parental presence at time of induction (if indicated), and clinically relevant risks that may include dental injury, unintentional awareness, and/or other complications. The patient and/or parent/legal guardian understand, and agree to proceed. All questions answered. MENTAL IRON 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 documented in this encounter Plan of Treatment Not on file documented as of this encounter Visit Diagnoses Not on filedocumented in this encounter Administered Medications Inactive Administered Medications - up to 3 most recent administrations Medication Order MAR Action Action Date Dose Rate Site lidocaine (cardiac) (XYLOCAINE) preservative free injection intravenous, As needed, Starting on Mon01/30/18 at 1402, Anesthesia Intra-op, Indications: Ventricular ArrhythmiasIndications:Ventricular Arrhythmias Given 01/30/2018 2:02 PM 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 5 mL propofol (DIPRIVAN) IV intravenous, As needed, Starting on Mon01/30/18 at 1403, Anesthesia Intra-op Given 01/30/2018 2:03 PM 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 140 mg documented in this encounter Care Teams School Admissions Representative Relationship Specialty Start Date End Date Followell, Fiorella A., MD [address] [place] [address] PCP - General 01/30/18 02/05/18 documented as of this encounter
--- OUTSIDE RECORDS SUMMARY | 2024-11-29 05:18 | XMS_ITS | Encounter Summary ---
Author Organization [facility] Address [address] [address] Care Team Providers Care Coordinating Producer Name Role Phone Rodrick Rincon MD Primary Care Provider [phone] Reason for Visit * (Routine) - Closed Specialty Diagnoses / Procedures Referred By Contac t Referred To Contact Diagnoses SSS (sick sinus syndrome) (CMS/HCC) (HCC) Procedures DEVICE CHECK - REMOTE Wilian Olea MD Phone: tel: fax: [facility] Referral ID Status Reason Start Date Expiration Date Visits Re quested Visits Authorized [id number] Closed 07/05/2019 01/13/2021 1 1 Encounter Details Date Type Department Care Team (Latest Contact Info) Description 07/16/2019 9:30 AM CDT Ancillary Procedure [facility] Medical [facility] Cardiology [facility] [phone] SSS (sick sinus syndrome) (CMS/HCC); History of cardiac pacemaker in situ Social History Tobacco Use Types Packs/Day Years Used Date Smoking Tobacco: Some Days Pipe Smokeless Tobacco: Never Comments:smokes pipe Alcohol Use Standard Drinks/Week Comments Yes 2 (1 standard drink = 0.6 oz pur e alcohol) occassionally Sex and Gender Information Value Date Recorded Sex Assigned at Not on file Legal Sex Male 3:29 AM RADIOLOGY ASST Gender Identity Not on file Sexual Orientation Not on file documented as of this encounter Plan of Treatment Pending Results Name Type Priority Associated Diagnoses Date /Time DEVICE CHECK - REMOTE Cardiac Services Routine SSS (sick sinus syndrome) (CMS/HCC) 07/16/2019 9:29 AM CDT documented as of this encounter Visit Diagnoses Diagnosis SSS (sick sinus syndrome) (CMS/HCC) (HCC) Sinoatrial node dysfunction History of cardiac pacemaker in situ documented in this encounter Care Teams Coordinating Producer Relationship Specialty Start Date End Date Rodrick Rincon MD [address] [place] [address] PCP - General Internal Medicine 02/06/18 07/02/24 documented as of this encounter
--- OUTSIDE RECORDS SUMMARY | 2024-11-29 05:18 | XMS_ITS | Encounter Summary ---
Author Organization [facility] Address [address] [address] Care Team Providers Care Photo Manager Name Role Phone Rodrick Rincon MD Primary Care Provider [phone] Reason for Referral * (Routine) - Closed Specialty Diagnoses / Procedures Referred By Contac t Referred To Contact Diagnoses SSS (sick sinus syndrome) (CMS/HCC) (HCC) Procedures DEVICE CHECK - REMOTE Wliian Olea MD Phone: tel: fax: [facility] Referral ID Status Reason Start Date Expiration Date Visits Re quested Visits Authorized [id number] Closed 09/01/2020 10/01/2021 1 1 * (Routine) - Closed Specialty Diagnoses / Procedures Referred By Contac t Referred To Contact Diagnoses SSS (sick sinus syndrome) (CMS/HCC) (HCC) Procedures DEVICE CHECK - REMOTE Wilian Olea MD Phone: tel: fax: [facility] Referral ID Status Reason Start Date Expiration Date Visits Re quested Visits Authorized [id number] Closed 09/01/2020 10/01/2021 1 1 Encounter Details Date Type Department Care Team (Late st Contact Info) Description 09/01/2020 Orders Only [facility] Cardiology [address] [facility] [address] [place] [address] Wilian Olea MD [address] [place] [address] [address] [place] [id number] SSS (sick sinus syndrome) (CMS/HCC) (Primary Dx) Social History Tobacco Use Types Packs/Day Years Used Date Smoking Tobacco: Some Days Pipe Smokeless Tobacco: Never Comments:smokes pipe Alcohol Use Standard Drinks/Week Comments Yes 2 (1 standard drink = 0.6 oz pur e alcohol) occassionally Sex and Gender Information Value Date Recorded Sex Assigned at Not on file 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 DOI 03/05/[address] Bruno. [place] remote home monitor Q3 mo, Office pacer checks Q1 yr. Routine Pacemaker remote. Normal device function. Battery function-2.98V, 10.8 years remaining battery life to ANGIE. ?? Appropriate lead measurements. Presenting rhythm-ASVP. AP-46%, PRODUCTION TECHNICIAN->99%. No Atrial high rate episodes noted. ?? No ventricular high rate episodes noted. Medications; Norvasc, Hydrochlorothiazide, Lisinopril, Lipitor, ASA. See scanned report. [place] remote f/u 09/14/2021. us Wilian Olea MD [facility] PROC EDURES Final Result * DEVICE CHECK - REMOTE (03/09/2021 9:57 AM CDT) Anatomical Region Laterality Modality Other Narrative 05/04/2021 2:[address] [facility] Dual Pacemaker Dx; SSS, PAT. DOI 03/05/[address] Bruno[address] [place] remote home monitor Q3 mo, Office pacer checks Q1 yr. Routine Pacemaker remote. Normal device function. Battery function-2.99V, 10.8 years estimated remaining longevity. Appropriate lead measurements. Presenting rhythm-APVP. AP-45%, PRODUCTION TECHNICIAN->99%. 4 Atrial high rate episodes noted, max duration 2 min. No ventricular high rate episodes noted. Medications; Norvasc, Hydrochlorothiazide, Lisinopril, Lipitor, ASA. See scanned report. [place] remote f/u 06/08/2021. Wilian Olea MD [facility] PROC EDURES Final Result documented in this encounter Visit Diagnoses Diagnosis SSS (sick sinus syndrome) (CMS/HCC) (HCC)- Primary Sinoatrial node dysfunction SSS (sick sinus syndrome) (CMS/HCC) (HCC) Sinoatrial node dysfunction Atrial paroxysmal tachycardia (HCC) Paroxysmal supraventricular tachycardia History of cardiac pacemaker in situ SSS (sick sinus syndrome) (CMS/HCC) (HCC) Sinoatrial node dysfunction Atrial paroxysmal tachycardia (HCC) Paroxysmal supraventricular tachycardia History of cardiac pacemaker in situ documented in this encounter Care Teams Photo Manager Relationship Specialty Start Date End Date Rodrick Rincon MD [address] [place] [address] PCP - General Internal Medicine 02/06/18 07/02/24 documented as of this encounter
--- OUTSIDE RECORDS SUMMARY | 2024-11-29 05:18 | XMS_ITS | Encounter Summary ---
Author Organization [facility] Address [address] [address] Care Team Providers Care Catalog Library Assistant Name Role Phone Rodrick Rincon MD Primary Care Provider [phone] Reason for Visit * Cardiology (Routine) - Canceled Specialty Diagnoses / Procedures Referred By Contac t Referred To Contact Diagnoses SSS (sick sinus syndrome) (CMS/HCC) (HCC) Procedures DEVICE CHECK - REMOTE Wilian Olea MD Phone: tel: fax: Referral ID Status Reason Start Date Expiration Date V isits Requested Visits Authorized [id number] Canceled 12/11/2017 06/09/2018 1 1 Encounter Details Date Type Department Care Team (Latest Contact Info) Description 12/18/2018 9:45 AM DIAMOND SORTER Ancillary Procedure [facility] Cardiology [facility] [address] SSS (sick sinus syndrome) (CMS/HCC); History of [...] on file 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 Gender Identity Not on file Sexual Orientation Not on file documented as of this encounter Plan of Treatment Pending Results Name Type Priority Associated Diagnoses Date /Time DEVICE CHECK - REMOTE Cardiac Services Routine SSS (sick sinus syndrome) (CMS/HCC) 01/01/2019 3:01 PM DIAMOND SORTER documented as of this encounter Visit Diagnoses Diagnosis SSS (sick sinus syndrome) (CMS/HCC) (HCC) Sinoatrial node dysfunction History of cardiac pacemaker in situ documented in this encounter Care Teams Catalog Library Assistant Relationship Specialty Start Date End Date Rodrick Rincon MD [address] [place] [address] PCP - General Internal Medicine 02/06/18 07/02/24 documented as of this encounter
--- OUTSIDE RECORDS SUMMARY | 2024-11-29 05:18 | XMS_ITS | Encounter Summary ---
Author Organization [facility] Address [address] [address] Care Team Providers Care Computer Installation Engineer Name Role Phone Rodrick Rincon MD Primary Care Provider [phone] Reason for Visit * (Routine) - Closed Specialty Diagnoses / Procedures Referred By Contac t Referred To Contact Diagnoses SSS (sick sinus syndrome) (CMS/HCC) (HCC) Procedures DEVICE CHECK - REMOTE Wilian Olea MD Phone: tel: fax: 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 Gender Identity Not on file Sexual Orientation Not on file documented as of this encounter Plan of Treatment Pending Results Name Type Priority Associated Diagnoses Date /Time DEVICE CHECK - REMOTE Cardiac Services Routine SSS (sick sinus syndrome) (CMS/HCC) 10/15/2019 8:30 AM MEDICAL CODING AUDITOR documented as of this encounter Visit Diagnoses Diagnosis SSS (sick sinus syndrome) (CMS/HCC) (HCC) Sinoatrial node dysfunction Atrial paroxysmal tachycardia (HCC) Paroxysmal supraventricular tachycardia Pacemaker Cardiac pacemaker in situ documented in this encounter Care Teams Computer Installation Engineer Relationship Specialty Start Date End Date Rodrick Rincon MD [address] [place] [address] PCP - General Internal Medicine 02/06/18 07/02/24 documented as of this encounter
--- OUTSIDE RECORDS SUMMARY | 2024-11-29 05:18 | XMS_ITS | Encounter Summary ---
Author Organization [facility] Address [address] [facility] [address] [place] [address] Care Team Providers Care Manager Fiber Name Role Phone Rodrcik Rincon MD Primary Care Provider Encounter Details Date Type Department Care Team (Late st Contact Info) Description 02/13/2018 Orders Only [facility] [address] [facility] [address] [place] [address] Provider, MD [place] [address] [place], [place] [id number] Social History Tobacco Use Types Packs/Day Years Used Date Smoking Tobacco: Some Days Pipe Smokeless Tobacco: Never Comments:smokes pipe Alcohol Use Standard Drinks/Week Comments Yes 2 (1 standard drink = 0.6 oz pur e alcohol) occassionally Sex and Gender Information Value Date Recorded Sex Assigned at Not on file 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 Gender Identity Not on file Sexual Orientation Not on file documented as of this encounter Plan of Treatment Not on file documented as of this encounter Procedures Procedure Name Priority Date/Time Associated Diagnosis Comments LIPID PANEL Routine 01/19/2018 10:56 AM MECHANICAL MAINTENANCE TECHNICIAN documented in this encounter Results * (ABNORMAL) Lipid panel (01/19/2018 10:56 AM MECHANICAL MAINTENANCE TECHNICIAN) SCRIBED Cholesterol, Total 205(A) 0 - 200 EXTERNAL LAB SCRIBED HDL 102(A) 40 - 100 EXTERNAL LAB SCRIBED LDL 78 0 - 100 EXTERNAL LAB SCRIBED Triglycerides 70 0 - 150 EXTERNAL LAB Blood specimen (specimen) us Historical Provider LAB BLOOD ORDERABLES Edit ed Result - Final EXTERNAL LAB documented in this encounter Visit Diagnoses Not on filedocumented in this encounter Care Teams Manager Fiber Relationship Specialty Start Date End Date Rodrick Rincon MD [address] [place], [place] [id number] PCP - General Internal Medicine 02/06/18 07/02/24 documented as of this encounter
--- OUTSIDE RECORDS SUMMARY | 2024-11-29 05:18 | XMS_ITS | Encounter Summary ---
Author Organization [facility] Address [address] [address] Care Team Providers Care Postdoctoral Research Fellow Name Role Phone Rodrick Rincon MD Primary Care Provider [phone] Reason for Visit * Cardiology (Routine) - Canceled Specialty Diagnoses / Procedures Referred By Contac t Referred To Contact Diagnoses SSS (sick sinus syndrome) (CMS/HCC) (HCC) Procedures DEVICE CHECK - REMOTE Wilian Olea MD Phone: tel: fax: Referral ID Status Reason Start Date Expiration Date V isits Requested Visits Authorized [id number] Canceled 12/11/2017 06/09/2018 1 1 Encounter Details Date Type Department Care Team (Latest Contact Info) Description 02/13/2018 8:15 AM CDT Ancillary Procedure [facility] Cardiology [facility] [address] SSS (sick sinus syndrome) (CMS/HCC); History of [...] on file 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 Gender Identity Not on file Sexual Orientation Not on file documented as of this encounter Plan of Treatment Pending Results Name Type Priority Associated Diagnoses Date /Time DEVICE CHECK - REMOTE Cardiac Services Routine SSS (sick sinus syndrome) (CMS/HCC) 02/20/2018 2:44 PM CDT documented as of this encounter Visit Diagnoses Diagnosis SSS (sick sinus syndrome) (CMS/HCC) (HCC) Sinoatrial node dysfunction History of cardiac pacemaker in situ documented in this encounter Care Teams Postdoctoral Research Fellow Relationship Specialty Start Date End Date Rodrick Rincon MD [address] [place] [address] PCP - General Internal Medicine 02/06/18 07/02/24 documented as of this encounter
--- OUTSIDE RECORDS SUMMARY | 2024-11-29 05:18 | XMS_ITS | Encounter Summary ---
Author Organization [facility] Healthcare Address [address] [place] [address] Care Team Providers Care Adjunct Professor Of Voice Name Role Phone Fiorella Barcenas MD Primary Care Provider + Encounter Details Date Type Department Care Team (Latest Contact Info) Description 01/30/2018 12:02 PM PAGINATOR - 01/30/2018 4:22 PM PAGINATOR Hospital Encounter [facility] [address] [place] [address] [place] [address] [place] [address] Discharge Disposition: Discharge to home or self care Social History Tobacco Use Types Packs/Day Years Used Date Smoking Tobacco: Some Days Pipe Smokeless Tobacco: Never Comments:smokes pipe Alcohol Use Standard Drinks/Week Comments Yes 2 (1 standard drink = 0.6 oz pur e alcohol) occassionally Sex and Gender Information Value Date Recorded Sex Assigned at Not on file Legal Sex Male 3:29 AM PAGINATOR Gender Identity Not on file Sexual Orientation Not on file documented as of this encounter Last Filed Vital Signs Vital Sign Reading Time Taken Comments Blood Pressure 127/79 01/30/2018 3:05 PM PAGINATOR Pulse 65 01/30/2018 3:15 PM PAGINATOR Temperature 36.7 ??C (98.1 ??F) 01/30/2018 1:24 PM CS T Respiratory Rate 20 01/30/2018 3:15 PM PAGINATOR Oxygen Saturation 97% 01/30/2018 3:15 PM PAGINATOR Inhaled Oxygen Concentration - - Weight 78 kg (172 lb) 01/30/2018 1:24 PM PAGINATOR Height 175.3 cm (5' 9 ) 01/30/2018 1:24 PM PAGINATOR Body Mass Index 25.4 01/30/2018 1:24 PM PAGINATOR documented in this encounter Medications at Time of Discharge atorvastatin (LIPITOR) 20 mg tablet take 1 tablet by oral route every day 0 0 08/10/2016 biotin 5,000 mcg tablet,disintegratin g 5,000 mcg. 0 0 02/17/2017 folic acid (FOLVITE) 400 mcg tablet Take 1 tablet (400 mcg total) by mouth daily multivitamin tablet tablet take 1 tablet by oral route every day with food 0 0 02/10/2015 omega-3 fatty acids-vitamin E (FISH OIL) 1,000 mg capsule take 1 by Oral route once 0 0 11/02/2015 ondansetron ODT (ZOFRAN-ODT) 4 mg disintegrating tablet Take 1 tablet (4 mg total) by mouth every 8 (eight) hours as needed for nausea or vomiting ustekinumab (STELARA) injection Inject 1 mL (90 mg total) under the skin Inject subq every 8 weeks acetaminophen (PAIN RELIEVER) 500 mg capsule take 2 capsule by oral route every 6 hours as needed 0 0 02/17/2017 4 calcium carbonate-vitamin D3 (CALCIUM 500 + D) 500 mg(1,250mg) -400 unit tablet 0 0 11/02/2015 4 cholecalciferol (VITAMIN D3) 2,000 unit tablet take 1 by Oral route every day 0 0 11/02/2015 4 clonazePAM (KlonoPIN) 0.5 mg tablet take 1 tablet by oral route every day 0 0 10/27/2014 4 coenzyme X43-qfcaocb E (CO Q-10, WITH VIT E,) 100-5 mg-unit capsule 1 tablet by mouth once a day 0 0 10/27/2014 4 iron bisgly,ps-FA-B-C#12- succ (IROSPAN 24/6) 65 mg-65 mg -1,000 mcg (24) tablet 0 0 02/17/2017 4 melatonin 5 mg tablet 5 mg. 0 0 05/16/2016 4 vitamin b complex tablet Take 5,000 tablets by mouth daily 4 white petrolatum-mineral oil (eucerin) cream 0 0 11/02/2015 4 amLODIPine (NORVASC) 2.5 mg tablet Take 1 tablet (2.5 mg total) by mouth daily. 90 tablet 1 09/07/2017 8 aspirin 81 mg tablet take 1 tablet by oral route every day 0 0 10/27/2014 9 aspirin-acetaminophe n-caffeine (EXCEDRIN MIGRAINE) 250-250-65 mg per tablet one tablet as needed for migraine 0 0 02/10/2015 4 xaeyoh-ctt-R-Mn-herb #21 (GLUCOSAMINE-MSM COMPLEX) tablet 0 0 11/02/2015 4 hydroCHLOROthiazide (HYDRODIURIL) 25 mg tablet Take 1 tablet (25 mg total) by mouth daily. 90 tablet 11/06/2017 8 lisinopril (PRINIVIL,ZESTRIL) 40 mg tablet TAKE 1 TABLET BY MOUTH EVERY DAY 90 tablet 12/07/2017 8 meclizine (ANTIVERT) 25 mg tablet take 1 tablet by oral route 3 times every day as needed 0 0 02/17/2017 4 mesalamine (LIALDA) 1.2 gram EC tabletIndications:Ul cerative Colitis Take 2.4 g by mouth 2 (two) times a day. 9 documented as of this encounter Discharge Disposition Disposition Code Departure Means Destination Discharge to home or self care documented in this encounter H&P Notes * Dakota Bar MD - 01/30/2018 4:22 PM CST The patient was referred for colonoscopy for the following indication: Crohn's disease. For any pertinent family history, see below. Social History Substance Use Topics ??? Smoking status: Current Some Day Smoker Types: Pipe ??? Smokeless tobacco: Never Used Comment: smokes pipe ??? Alcohol use 1.2 oz/week 2 Cans of beer per week Comment: occassionally Family History Problem Relation Age of Onset ??? Alzheimer's disease Mother Past Medical History: Diagnosis Date ??? Anemia [...] FUSION 10/2017 ??? TRANSURETHRAL RESECTION OF PROSTATE Patient has no known allergies. Prior to Admission medications Medication Sig Start Date End Date Taking? Authorizing Provider acetaminophen (PAIN RELIEVER) 500 mg capsule take 2 capsule by oral route every 6 hours as needed 02/17/17 Wilian Olea MD amLODIPine (NORVASC) 2.5 mg tablet Take 1 tablet (2.5 mg total) by mouth daily. 09/07/17 Wilian Olea MD aspirin 81 mg tablet take 1 tablet by oral route every day 10/27/14 Hermann Kimbrough MD rbxtswy-ilnmbjxzjgdfq-mdosxyuv (EXCEDRIN MIGRAINE) 250-250-65 mg per tablet one tablet as needed for migraine 02/10/15 Wilian Olea MD atorvastatin (LIPITOR) 20 mg tablet take 1 tablet by oral route every day 08/10/16 Wilian Olea MD b complex vitamins (B COMPLEX-VITAMIN B12) tablet Take 5,000 tablets by mouth daily. Historical Provider, biotin 5,000 mcg tablet,disintegrating 5,000 mcg. 02/17/17 Wilian Olea MD calcium carbonate-vitamin D3 (CALCIUM 500 + D) 500 mg(1,250mg) -400 unit tablet 11/02/15 Wilian Olea MD cholecalciferol (VITAMIN D3) 2,000 unit tablet take 1 by Oral route every day 11/02/15 Wilian Olea MD clonazePAM (KlonoPIN) 0.5 mg tablet take 1 tablet by oral route every day 10/27/14 Hermann Kimbrough MD coenzyme P83-adkfvez E (CO Q-10, WITH VIT E,) 100-5 mg-unit capsule 1 tablet by mouth once a day 10/27/14 Hermann Kimbrough MD folic acid (FOLVITE) 400 mcg tablet Take 400 mcg by mouth daily. Historical Provider, ulkshm-uyu-Y-Mn-herb#21 (GLUCOSAMINE-MSM COMPLEX) tablet 11/02/15 Wilian Olea MD hydroCHLOROthiazide (HYDRODIURIL) 25 mg tablet Take 1 tablet (25 mg total) by mouth daily. 11/06/17Wilian Olea MD iron bisgly,ps-FA-B-C#12-succ (IROSPAN /) 65 mg-65 mg -1,000 mcg (24) tablet 02/17/17 Wilian Olea MD lisinopril (PRINIVIL,ZESTRIL) 40 mg tablet TAKE 1 TABLET BY MOUTH EVERY DAY 12/07/17 Wilian Olea MD meclizine (ANTIVERT) 25 mg tablet take 1 tablet by oral route 3 times every day as needed 02/17/17 Wilian Olea MD melatonin 5 mg tablet 5 mg. 05/16/16 Wilian Olea MD mesalamine (LIALDA) 1.2 gram EC tablet Take 2.4 g by mouth 2 (two) times a day. Historical Provider, multivitamin tablet tablet take 1 tablet by oral route every day with food 02/10/15 Wilian Olea MD omega-3 fatty acids-vitamin E (FISH OIL) 1,000 mg capsule take 1 by Oral route once 11/02/15 Wilian Olea MD ondansetron ODT (ZOFRAN-ODT) 4 mg disintegrating tablet Take 4 mg by mouth every 8 (eight) hours asneeded for nausea or vomiting. Historical Provider, ustekinumab (STELARA) injection Inject 90 mg under the skin. Inject subq every 8 weeks Historical Provider, MD quiros petrolatum-mineral oil (eucerin) cream 11/02/15 Wilian Olea MD Review of Systems Review of Systems No clinically pertinent complaints in other areas with respect to today's procedure OBJECTIVE: Vitals: Most Recent : Vitals: 01/30/18 1500 01/30/18 1505 01/30/18 1510 01/30/18 1515 BP: 127/79 Pulse: 60 64 67 65 Resp: (!) 34 15 19 20 Temp: TempSrc: SpO2: 97% 100% 97% 97% Weight: Height: Physical exam: thin, ill appearing Neuro: alert and oriented Lungs: normal breath sounds, regular rate of respirations Heart: regular sounds, regular rate Abdomen: soft, non-distended, non-tender Impression: Colonoscopy to be performed for above indication. Plan: Proceed with procedure. The risks and complications of the procedures have been explained to the patient. Informed consent was signed. NATOR NATOR documented in this encounter Procedure Notes * Dakota Bar MD - 01/30/2018 6:54 AM CSTAssociated Order(s): COLONOSCOPY ENDOSCOPY LAB Patient Name: Dinesh Saha Procedure Date: 01/30/2018 6:54 AM Admit Type: Outpatient Room: [facility] Date of : 1940 Instrument Name: [id number] Gender: Male Note Status: Finalized Procedure: Colonoscopy Indications: Follow-up of Crohn's disease of the colon, Disease activity assessment of Crohn's disease of the colon -- changed to Marcus 12/1312/06/2016: over 50 ulcers in the proximal ascending colon and in the cecum - worsening of Crohn?s since September, pseudopolyps in the transverse colon and in the ascending colon, one 7 mm polyp in the transverse colon BX: pseudopolyp ? no adenomatous tissue HX Crohn?s colitis with bleeding in past requiring cautery and clipping of bleeding ulcer in right colon Providers: Dakota Bar MD Referring MD: Fiorella Barcenas M.D. Medicines: Propofol per Anesthesia, Propofol total dose 140 mg IV Complications: No immediate complications. Estimated Blood Loss: Estimated blood loss: none. Procedure: Pre-Anesthesia Assessment: - Prior to the procedure, a History and Physical was performed, and patient medications and allergies were reviewed. The patient is competent. The risks and benefits of the procedure and the sedation options and risks were discussed with the patient. All questions were answered and informed consent was obtained. Patient identification and proposed procedure were verified by the nurse in the procedure room. Mental Status Examination: alert and oriented. Airway Examination: normal oropharyngeal airway and neck mobility. Respiratory Examination: clear to auscultation. CV Examination: normal. Prophylactic Antibiotics: The patient does not require prophylactic antibiotics. Prior Anticoagulants: The patient has taken no previous anticoagulant or antiplatelet agents. ASA Grade Assessment: II - A patient with mild systemic disease. After reviewing the risks and benefits, the patient was deemed in satisfactory condition to undergo the procedure. The anesthesia plan was to use moderate sedation / analgesia (conscious sedation). Immediately prior to administration of medications, the patient was re-assessed for adequacy to receive sedatives. The heart rate, respiratory rate, oxygen saturations, blood pressure, adequacy of pulmonary ventilation, and response to care were monitored throughout the procedure. The physical status of the patient was re-assessed after the procedure. - The risks and benefits of the procedure and the sedation options and risks were discussed with the patient. All questions were answered and informed consent was obtained. The benefits, risks and alternatives of the procedure and sedation were discussed and informed consent was obtained. All questions were answered. Please refer to the signed informed consent document in the medical record. The scope was passed under direct vision. The Colonoscope was introduced through the anus and advanced to the the cecum, identified by appendiceal orifice and ileocecal valve. The colonoscopy was performed without difficulty. The patient tolerated the procedure well. The quality of the bowel preparation was good. The quality of the bowel preparation was evaluated using the BBPS ([place] Bowel Preparation Scale) with scores of: Right Colon = 3 (entire mucosa seen well with no residual staining, small fragments of stool or opaque liquid), Transverse Colon = 3 (entire mucosa seen well with no residual staining, small fragments of stool or opaque liquid) and Left Colon = 3 (entire mucosa seen well with no residual staining, small fragments of stool or opaque liquid). The total BBPS score equals 9. The bowel preparation used was MoviPrep. Bowel prep was administered using a split dose. Findings: Scattered pseudopolyps were found in the transverse colon and in the ascending colon. A few small-mouthed diverticula were found in the sigmoid colon. Internal hemorrhoids were found during retroflexion. The hemorrhoids were mild. The exam was otherwise without abnormality. Impression: - Pseudopolyps in the transverse colon and in the ascending colon. - Diverticulosis in the sigmoid colon. - Internal hemorrhoids. - The examination was otherwise normal to the cecum. - No specimens collected. Recommendation: - Repeat colonoscopy in 3 years for screening purposes. - Continue present medications. Attending Participation: I personally performed the entire procedure. Electronically signed by Dakota Bar MD Dakota Bar MD 01/30/2018 2:27:45 PM Number of Addenda: 0 Note Initiated On: 01/30/2018 6:54 AM NATOR documented in this encounter Consult Notes * Dakota Bar MD - 01/27/2018 9:27 PM CST The patient was referred for open access colonoscopy for the following indication: crohns bloody diarrhea (few - since last few mo). Social History Substance Use Topics ??? Smoking status: Current Some Day Smoker Types: Pipe ??? Smokeless tobacco: Never Used ??? Alcohol use 1.2 oz/week 2 Cans of beer per week Comment: occassionally Family History Problem Relation Age of Onset ??? Alzheimer's disease Mother Past Medical History: Diagnosis Date ??? HX OTHER MEDICAL Crohn's disease ??? HX OTHER MEDICAL Dyslipidemia ??? HX OTHER MEDICAL ca prostate ??? HX OTHER MEDICAL ? Pericarditis ??? Hypertension No past surgical history on file. Patient has no known allergies. Prior to Admission medications Medication Sig Start Date End Date Taking? Authorizing Provider acetaminophen (PAIN RELIEVER) 500 mg capsule take 2 capsule by oral route every 6 hours as needed 02/17/17 Wilian Olea MD amLODIPine (NORVASC) 2.5 mg tablet Take 1 tablet (2.5 mg total) by mouth daily. 09/07/17 Wilian Olea MD aspirin 81 mg tablet take 1 tablet by oral route every day 10/27/14 Hermann Kimbrough MD qecbzen-smedspmyvplku-gvtxvafd (EXCEDRIN MIGRAINE) 250-250-65 mg per tablet one tablet as needed for migraine 02/10/15 Wilian Olea MD atorvastatin (LIPITOR) 20 mg tablet take 1 tablet by oral route every day 08/10/16 Wilian Olea MD b complex vitamins (B COMPLEX-VITAMIN B12) tablet Take 5,000 tablets by mouth daily. Historical Provider, biotin 5,000 mcg tablet,disintegrating 5,000 mcg. 02/17/17 Wilian Olea MD calcium carbonate-vitamin D3 (CALCIUM 500 + D) 500 mg(1,250mg) -400 unit tablet 11/02/15 Wilian Olea MD cholecalciferol (VITAMIN D3) 2,000 unit tablet take 1 by Oral route every day 11/02/15 Wilian Olea MD clonazePAM (KlonoPIN) 0.5 mg tablet take 1 tablet by oral route every day 10/27/14 Hermann Kimbrough MD coenzyme A69-jwrqgys E (CO Q-10, WITH VIT E,) 100-5 mg-unit capsule 1 tablet by mouth once a day 10/27/14 Hermann Kimbrough MD folic acid (FOLVITE) 400 mcg tablet Take 400 mcg by mouth daily. Historical Provider, wekxcx-tdz-R-Mn-herb#21 (GLUCOSAMINE-MSM COMPLEX) tablet 11/02/15 Wilian Olea MD hydroCHLOROthiazide (HYDRODIURIL) 25 mg tablet Take 1 tablet (25 mg total) by mouth daily. 11/06/17Wilian Olea MD iron bisgly,ps-FA-B-C#12-succ (IROSPAN 20/05) 65 mg-65 mg -1,000 mcg (24) tablet 02/17/17 Wilian Olea MD lisinopril (PRINIVIL,ZESTRIL) 40 mg tablet TAKE 1 TABLET BY MOUTH EVERY DAY 12/07/17 Wilian Olea MD meclizine (ANTIVERT) 25 mg tablet take 1 tablet by oral route 3 times every day as needed 02/17/17 Wilian Olea MD melatonin 5 mg tablet 5 mg. 05/16/16 Wilian Olea MD mesalamine (LIALDA) 1.2 gram EC tablet Take 2.4 g by mouth 2 (two) times a day. Historical Provider, multivitamin tablet tablet take 1 tablet by oral route every day with food 02/10/15 Wilian Olea MD omega-3 fatty acids-vitamin E (FISH OIL) 1,000 mg capsule take 1 by Oral route once 11/02/15 Wilian Olea MD ondansetron ODT (ZOFRAN-ODT) 4 mg disintegrating tablet Take 4 mg by mouth every 8 (eight) hours asneeded for nausea or vomiting. Historical Provider, ustekinumab (STELARA) injection Inject 90 mg under the skin. Inject subq every 8 weeks Historical Provider, MD quiros petrolatum-mineral oil (eucerin) cream 11/02/15 Wilian Olea MD Review of Systems Review of Systems All other systems reviewed and are negative. OBJECTIVE: Vitals: Most Recent : There were no vitals filed for this visit. Physical exam: Physical Exam Neuro: alert and oriented Lungs: normal breath sounds Heart: regular sounds, regular rate Abdomen: soft, non-distended, non-tender The risks and complications of the procedure have been explained to the patient. Informed consent was signed. NATOR documented in this encounter Plan of Treatment Not on file documented as of this encounter Procedures Procedure Name Priority Date/Time Associated Diagnosis Comments COLONOSCOPY 01/30/2018 1:56 PM PAGINATOR COLON COLONOSCOPY 01/30/2018 6:54 AM PAGINATOR documented in this encounter Results * COLONOSCOPY (01/30/2018 6:54 AM PAGINATOR) Anatomical Region Laterality Modality Other Narrative Procedure Note Dakota Bar MD - 01/30/2018 6:54 AM CST ENDOSCOPY LAB Patient Name: Dinesh Saha Procedure Date: 01/30/2018 6:54 AM Admit Type: Outpatient Room: [facility] Date of : 1940 Instrument Name: [id number] Gender: Male Note Status: Finalized Procedure: Colonoscopy Indications: Follow-up of Crohn's disease of the colon, Disease activity assessment of Crohn's disease of the colon -- changed to Marcus 12/1312/06/2016: over 50 ulcers in the proximal ascendingcolon and in the cecum - worsening of Crohn? s sinceNovember, pseudopolyps in the transverse colon and in theascending colon, one 7 mm polyp in the transverse colon BX: pseudopolyp ? no adenomatous tissue HX Crohn? s colitis with bleeding in past requiringcautery and clipping of bleeding ulcer in right colon Providers: Dakota Bar MD Referring MD: Fiorella Barcenas M.D. Medicines: Propofol per Anesthesia, Propofol total dose 140 mgIV Complications: No immediate complications. Estimated Blood Loss: Estimated blood loss: none. Procedure: Pre-Anesthesia Assessment: - Prior to the procedure, a History and Physical was performed, and patient medications and allergies were reviewed. The patient is competent. The risks andbenefits of the procedure and the sedation options and riskswere discussed with the patient. All questions were answered and informed consent was obtained. Patientidentification and proposed procedure were verified by the nurse inthe procedure room. Mental Status Examination: alert and oriented. Airway Examination: normal oropharyngealairway and neck mobility. Respiratory Examination: clear to auscultation. CV Examination: normal. Prophylactic Antibiotics: The patient does not require prophylactic antibiotics. Prior Anticoagulants: The patient hastaken no previous anticoagulant or antiplatelet agents. ASA Grade Assessment: II - A patient with mild systemic disease. After reviewing the risks and benefits, the patient was deemed in satisfactory condition to undergo the procedure. The anesthesia plan was to use moderate sedation / analgesia (conscious sedation). Immediately prior to administration of medications, the patient was re-assessed for adequacy to receive sedatives. Theheart rate, respiratory rate, oxygen saturations, blood pressure, adequacy of pulmonary ventilation, andresponse to care were monitored throughout the procedure. The physical status of the patient was re-assessed afterthe procedure. - The risks and benefits of the procedure and thesedation options and risks were discussed with the patient. All questions were answered and informed consent wasobtained. The benefits, risks and alternatives of the procedureand sedation were discussed and informed consent wasobtained. All questions were answered. Please refer to the signed informed consent document in the medical record. Thescope was passed under direct vision. The Colonoscope was introduced through the anus and advanced to the thececum, identified by appendiceal orifice and ileocecal valve.The colonoscopy was performed without difficulty. Thepatient tolerated the procedure well. The quality of the bowel preparation was good. The quality of the bowelpreparation was evaluated using the BBPS ([place] Bowel Preparation Scale) with scores of: Right Colon = 3 (entire mucosaseen well with no residual staining, small fragments ofstool or opaque liquid), Transverse Colon = 3 (entire mucosa seen well with no residual staining, small fragments of stool or opaque liquid) and Left Colon = 3 (entiremucosa seen well with no residual staining, small fragments of stool or opaque liquid). The total BBPS score equals 9. The bowel preparation used was MoviPrep. Bowel prep was administered using a split dose. Findings: Scattered pseudopolyps were found in the transverse colon and in the ascending colon. A few small-mouthed diverticula were found in the sigmoid colon. Internal hemorrhoids were found during retroflexion. The hemorrhoids were mild. The exam was otherwise without abnormality. Impression: - Pseudopolyps in the transverse colon and in the ascending colon. - Diverticulosis in the sigmoid colon. - Internal hemorrhoids. - The examination was otherwise normal to the cecum. - No specimens collected. Recommendation: - Repeat colonoscopy in 3 years for screeningpurposes. - Continue present medications. Attending Participation: I personally performed the entire procedure. Electronically signed by Dakota Bar MD Dakota Bar MD 01/30/2018 2:27:45 PM Number of Addenda: 0 Note Initiated On: 01/30/2018 6:54 AM us Dakota Bar MD ENDOSCOPY PROCEDURES Fin al Result documented in this encounter Visit Diagnoses Not on filedocumented in this encounter Administered Medications Inactive Administered Medications - up to 3 most recent administrations Medication Order MAR Action Action Date Dose Rate Site Lactated Ringer's (LR) infusion 30 mL/hr, intravenous, Continuous, Starting on 01/13/18 at 1500 New Bag 01/30/2018 1:43 PM PAGINATOR 30 mL/hr 30 mL/hr lidocaine (XYLOCAINE) 10 mg/mL (1 %) injection 1-5 mg 1-5 mg (0.1-0.5 mL), subcutaneous, Once as needed, pain with IV placement, Starting on 01/13/18 at 1429, For 1 dose, Pre-Procedure (GI), Indications: local analgesiaIndications:local analgesia sodium chloride 0.9% flush 0.5-20 mL 0.5-20 mL, intra-catheter, As needed, line care, Starting on 01/13/18 at 1429, Pre-Procedure (GI), Flush volume based on line type and size. Flush before and after each use. , Indications: FlushingIndications:Flushing documented in this encounter Active and Recently Administered Medications Times are shown in PAGINATOR. Continuous Medication Order 01/28/2018 01/29/2018 01/30/2018 Lactated Ringer's (LR) infusion 30 mL/hr, intravenous, Continuous, Starting on 01/13/18 at 1500 1343 (New Bag - Prov ider: Giselle Mary RN)1415 (Anesthesia Volume Adjustment - Provider: Dariana Flood CRNA) sodium chloride 0.9% infusion 125 mL/hr, intravenous, Continuous, Starting on 01/30/18 at 1500, Recovery (GI) 1500 (Due) PRN Medication Order 01/28/2018 01/29/2018 01/30/2018 lidocaine (XYLOCAINE) 10 mg/mL (1 %) injection 1-5 mg 1-5 mg (0.1-0.5 mL), subcutaneous, Once as needed, pain with IV placement, Starting on 01/13/18 at 1429, For 1 dose, Pre-Procedure (GI), Indications: local analgesia 1313 (JAN Hold - Pro vider: Automatic Transfer Provider - Reason: Patient not available)1822 (MAR Unhold - Provider: User Epic) sodium chloride 0.9% flush 0.5-20 mL 0.5-20 mL, intra-catheter, As needed, line care, Starting on 01/13/18 at 1429, Pre-Procedure (GI), Flush volume based on line type and size. Flush before and after each use. , Indications: Flushing 1313 (JAN Hold - Pro vider: Automatic Transfer Provider - Reason: Patient not available)1822 (JAN Unhold - Provider: User Epic) documented in this encounter Orders Medications Ordered That Quirino ht Not Have Been Administered Count Last Ordered Date First Ordered Date sodium chloride 0.9% infusion 1 01/30/2018 lidocaine (XYLOCAINE) 10 mg/ mL (1 %) injection 1-5 mg 1 01/13/2018 sodium chloride 0.9% flush 0.5-20 mL 1 12/28 Discharge Count Last Ordered Date First Orde red Date DISCHARGE PATIENT 1 01/30/2018 documented in this encounter Care Teams Adjunct Professor Of Voice Relationship Specialty Start Date End Date Fiorella Barcenas MD [address] [place] [address] PCP - General 01/30/18 02/05/18 documented as of this encounter
--- OUTSIDE RECORDS SUMMARY | 2024-11-29 05:18 | XMS_ITS | Encounter Summary ---
Author Organization [facility] Address [address] [address] Care Team Providers Care Arcgis Developer Name Role Phone Rodrick Rincon MD Primary Care Provider [phone] Reason for Visit * (Routine) - Closed Specialty Diagnoses / Procedures Referred By Contac t Referred To Contact Diagnoses SSS (sick sinus syndrome) (CMS/HCC) (HCC) Procedures DEVICE CHECK - REMOTE Wilian Olea MD Phone: tel: fax: [facility] Referral ID Status Reason Start Date Expiration Date Visits Re quested Visits Authorized [id number] Closed 10/15/2019 04/25/2021 1 1 Encounter Details Date Type Department Care Team (Latest Contact Info) Description 01/14/2020 9:15 AM FLIGHT CREW ORDNANCEMAN Ancillary Procedure [facility] Cardiology [facility] [address] SSS (sick sinus syndrome) (CMS/HCC); Atrial paroxysmal tachycardia (CMS/HCC); History of cardiac pacemaker in situ; Pacemaker Social History Tobacco Use Types Packs/Day Years Used Date Smoking Tobacco: Some Days Pipe Smokeless Tobacco: Never Comments:smokes pipe Alcohol Use Standard Drinks/Week Comments Yes 2 (1 standard drink = 0.6 oz pur e alcohol) occassionally Sex and Gender Information Value Date Recorded Sex Assigned at Not on file Legal Sex Male 3:29 AM FLIGHT CREW ORDNANCEMAN Gender Identity Not on file Sexual Orientation Not on file documented as of this encounter Plan of Treatment Pending Results Name Type Priority Associated Diagnoses Date /Time DEVICE CHECK - REMOTE Cardiac Services Routine SSS (sick sinus syndrome) (CMS/HCC) 01/14/2020 10:42 AM FLIGHT CREW ORDNANCEMAN documented as of this encounter Visit Diagnoses Diagnosis SSS (sick sinus syndrome) (CMS/HCC) (HCC) Sinoatrial node dysfunction Atrial paroxysmal tachycardia (HCC) Paroxysmal supraventricular tachycardia History of cardiac pacemaker in situ Pacemaker Cardiac pacemaker in situ documented in this encounter Care Teams Arcgis Developer Relationship Specialty Start Date End Date Rodrick Rincon MD [address] [place] [address] PCP - General Internal Medicine 02/06/18 07/02/24 documented as of this encounter
--- OUTSIDE RECORDS SUMMARY | 2024-11-29 05:18 | XMS_ITS | Encounter Summary ---
Author Organization [facility] Address [address] [facility] [address] [place] [address] Care Team Providers Care Life Assurance Representative Name Role Phone Rodrick Rincon MD Primary Care Provider [phone] Reason for Visit * Reason Comments Follow-up 6 mo follow up on co mplete AV block, HTN, PAT, dyslipidemia, SSS Encounter Details Date Type Department Care Team (Latest Contact Info) Description 11/22/2019 1:15 PM TWIST PACKER Office Visit [facility] Cardiology [address] [facility] [address] [place] [address] Wilian Olea MD [address] [facility] [address] [place] [address] Benign hypertension (Primary Dx); Atrial paroxysmal tachycardia (CMS/HCC); Complete atrioventricular block (CMS/HCC); History of cardiac pacemaker in situ; Dyslipidemia Social History Tobacco Use Types Packs/Day Years Used Date Smoking Tobacco: Some Days Pipe Smokeless Tobacco: Never Comments:smokes pipe Alcohol Use Standard Drinks/Week Comments Yes 2 (1 standard drink = 0.6 oz pur e alcohol) occassionally Sex and Gender Information Value Date Recorded Sex Assigned at Not on file Legal Sex Male 3:29 AM TWIST PACKER Gender Identity Not on file Sexual Orientation Not on file documented as of this encounter Last Filed Vital Signs Vital Sign Reading Time Taken Comments Blood Pressure 124/70 11/22/2019 1:09 PM TWIST PACKER Pulse 63 11/22/2019 1:09 PM TWIST PACKER Temperature - - Respiratory Rate - - Oxygen Saturation 94% 11/22/2019 1:09 PM TWIST PACKER Inhaled Oxygen Concentration - - Weight 78.5 kg (173 lb) 11/22/2019 1:09 PM TWIST PACKER Height 175.3 cm (5' 9 ) 11/22/2019 1:09 PM TWIST PACKER Body Mass Index 25.55 11/22/2019 1:09 PM TWIST PACKER documented in this encounter Progress Notes * Wilian Olea MD - 11/22/2019 1:15 PM CST [facility] DATE OF VISIT: 11/22/2019 CHIEF COMPLAINT Chief Complaint Patient presents with ??? 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 BP under fair control. Continue monitor at home. Monitor BP on routine basis. Call with readings. Continue consistent cardiovascular exercise, weight loss, medication compliance, and low-sodium diet. May change Amlodipine if BP elevated on average. No change at this time. 2. Routine PPM personally reviewed from Sep 2019 normal fxn, >99% RV pacing last check no new arrhythmias underlying CHB. 3. Monitor weight, ensure adequate caloric intake. 4. Remains on Stelara for his Crohn's, colonoscopy last week doing well overall 5. No palps suggestive of significant PAT. Monitor burden on PPM check. 6. Borderline indication for ASA at this time. I would be fine with stopping and advised he may stop to which he agrees. 7. Lipids personally reviewed 11/22/19 LDL 78, well controlled. Continue statin therapy and lifestyle modification. Over 50% of this visit counseling SSS/PPM, HTN, lipids, medications, lifestyle modification. Follow up in the office in 6 months or sooner as needed. Thank you for allowing me the privilege of participating in the care this very pleasant patient. Please do not hesitate to contact me with any additional questions or concerns. HPI Dinesh Saha is a 79 y.o. male with a PMHx of Crohn's [...] sciatica, seeking specialist referral. He was in [place] for 2 weeks in Jul, and missed his regularly scheduled remote interrogationfor his pacemaker on 08/01/2017. ??02/17/17 Doing ok but Crohn's has been flaring up. Hosp in Dec for ulcerations in cecum postop repair now on STellara. Splitting HCTZ into afternoon and evening dosing. Keeps meticulous records of BP. 10/09/17 CAT visit: He comes to the office today for preoperative evaluation. He is having back surgery with Dr. Robert at [facility] in early October. He denies [...] pains. NO bleeding [facility] lipids done at [facility]. 11/22/19 Doing fairly well, BP better after stopping Tylenol he notes as he meticulously tracks hisBP. No bleeding, dizziness, falls or CP. Still taking ASA 81mg daily. MEDICAL HISTORY Past Medical History: Diagnosis Date ??? Anemia ??? Cancer (CMS/HCC) prostate cancer ??? Colon polyp ??? Crohn's disease (CMS/HCC) ??? HX OTHER MEDICAL Crohn's disease ??? HX OTHER MEDICAL Dyslipidemia ??? HX OTHER MEDICAL ca prostate ??? HX OTHER MEDICAL ? Pericarditis ??? Hyperlipidemia ??? Hypertension ??? Migraines ??? Pacemaker Social History Tobacco Use ??? Smoking status: Current Some Day Smoker [...] 2.5 mg tablet aspirin 81 mg tablet tfyrfic-krmvmditcgwvb-nqpbclhb (EXCEDRIN MIGRAINE) 250-250-65 mg per tablet atorvastatin (LIPITOR) 20 mg tablet b complex vitamins (B COMPLEX-VITAMIN B12) tablet biotin 5,000 mcg tablet,disintegrating calcium carbonate-vitamin D3 (CALCIUM 500 + D) 500 mg(1,250mg) -400 unit tablet cholecalciferol (VITAMIN D3) 2,000 unit tablet clonazePAM (KlonoPIN) 0.5 mg tablet coenzyme C40-odydsec E (CO Q-10, WITH VIT E,) 100-5 mg-unit capsule docusate sodium (DOK) 100 mg capsule folic acid (FOLVITE) 400 mcg tablet huqmle-prf-K-Mn-herb#21 (GLUCOSAMINE-MSM COMPLEX) tablet hydroCHLOROthiazide (HYDRODIURIL) 25 mg tablet iron bisgly,ps-FA-B-C#12-succ (IROSPAN 24/6) 65 mg-65 mg -1,000 mcg (24) tablet lisinopril (PRINIVIL,ZESTRIL) 40 mg tablet meclizine (ANTIVERT) 25 mg tablet melatonin 5 mg tablet multivitamin tablet tablet omega-3 fatty acids-vitamin E (FISH OIL) 1,000 mg capsule ondansetron ODT (ZOFRAN-ODT) 4 mg disintegrating tablet ustekinumab (STELARA) injection white petrolatum-mineral oil (eucerin) cream mesalamine (LIALDA) 1.2 gram EC tablet ALLERGIES No Known Allergies REVIEW OF SYSTEMS Review of Systems Constitution: Negative for decreased appetite, diaphoresis, fever, malaise/fatigue, night sweats, weight gain and weight loss. HENT: Negative for hearing [...] for environmental allergies. PHYSICAL EXAM Vitals BP 124/70 (BP Location: Right arm, Patient Position: Sitting) Pulse 63 Ht 175.3 cm (5' 9 ) Wt 78.5 kg (173 lb) SpO2 94% BMI 25.55 kg/m?? Weight: 78.5 kg (173 lb) Height: 175.3 cm (5' 9 ) Body mass index is 25.55 kg/m??. Physical Exam Constitutional: He is oriented [...] no guarding. Musculoskeletal: Normal range of motion. General: No tenderness, deformity or edema. Lymphadenopathy: He has no cervical adenopathy. Neurological: [...] visit. Latest known visit with results is: Orders Only on 05/16/2019 Component Date Value Ref Range Status ??? SCRIBED Cholesterol, Total 01/14/2019 180 0 - 200 Final ??? SCRIBED HDL 01/14/2019 82 40 - 100 Final ??? SCRIBED LDL 01/14/2019 78 0 - 100 Final ??? SCRIBED Triglycerides 01/14/2019 79 0 - 150 Final Results for orders placed or performed in visit on 05/16/19 Lipid panel Result Value Ref Range SCRIBED Cholesterol, Total 180 0 - 200 SCRIBED HDL 82 40 - 100 SCRIBED LDL 78 0 - 100 SCRIBED Triglycerides 79 0 - 150 Personally reviewed EKG, Echocardiogram, pacemaker checks, and bloodwork/lipids. 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 Therapy completed 11/22/2019 aspirin 81 mg tablet take 1 tablet by oral route every day 10/27/2014 11/22/2019 documented as of this encounter Care Teams Life Assurance Representative Relationship Specialty Start Date End Date Rodrick Rincon MD [address] [place] [address] PCP - General Internal Medicine 02/06/18 07/02/24 documented as of this encounter
--- OUTSIDE RECORDS SUMMARY | 2024-11-29 05:18 | XMS_ITS | Encounter Summary ---
Author Organization [facility] Address [address] [facility] [address] [place] [address] Care Team Providers Care Head Of Merchandise Buying Name Role Phone Rodrick Rincon MD Primary Care Provider [phone] Encounter Details Date Type Department Care Team (Latest Contact Info) Description 04/10/2019 2:30 PM CDT Ancillary Procedure [facility] Cardiology [address] [place] [address] SSS (sick sinus syndrome) (CMS/HCC); Pacemaker Social History Tobacco Use Types Packs/Day Years Used Date Smoking Tobacco: Some Days Pipe Smokeless Tobacco: Never Comments:smokes pipe Alcohol Use Standard Drinks/Week Comments Yes 2 (1 standard drink = 0.6 oz pur e alcohol) occassionally Sex and Gender Information Value Date Recorded Sex Assigned at Not on file Legal Sex Male 3:29 AM WORKERS COMPENSATION CLAIMS ADJUSTER Gender Identity Not on file Sexual Orientation Not on file documented as of this encounter Progress Notes * Cari Huitron RN - 04/10/2019 2:[address] [employer] Dual Pacemaker Dx; SSS, PAT. DOI 03/05/[address] Bruno[address] Casey remote home monitor Q3 mo, Office pacer checks Q1 yr. Office pacemaker evaluation demonstrated normal device function. Battery function-3.01V, 10.9 yrs estimated remaining longevity. Presenting rhythm-APVP. Underlying rhythm-CHB. AP-40%, NAIL EXPERT->99%. No arrhythmias noted. No programming changes made. See scanned report. Casey stanford f/u 07/16/2019. documented in this encounter Plan of Treatment Pending Results Name Type Priority Associated Diagnoses Date /Time DEVICE CHECK - IN OFFICE Cardiac Services Routine SSS (sick sinus syndrome) (CMS/HCC) 04/10/2019 2:33 PM CDT documented as of this encounter Visit Diagnoses Diagnosis SSS (sick sinus syndrome) (CMS/HCC) (HCC) Sinoatrial node dysfunction Pacemaker Cardiac pacemaker in situ documented in this encounter Care Teams Head Of Merchandise Buying Relationship Specialty Start Date End Date Rodrick Rincon MD [address] [place] [address] PCP - General Internal Medicine 02/06/18 07/02/24 documented as of this encounter
--- OUTSIDE RECORDS SUMMARY | 2024-11-29 05:18 | XMS_ITS | Encounter Summary ---
Author Organization [facility] Address [address] [facility] [address] [place] [address] Care Team Providers Care Road Mixer Operator Name Role Phone Rodrick Rincon MD Primary Care Provider [phone] Encounter Details Date Type Department Care Team (Late st Contact Info) Description 08/26/2019 Telephone [facility] [address] [place] [phone] Wilian Olea MD [address] [place] [address] [address] [place] [address] Social History Tobacco Use Types Packs/Day Years Used Date Smoking Tobacco: Some Days Pipe Smokeless Tobacco: Never Comments:smokes pipe Alcohol Use Standard Drinks/Week Comments Yes 2 (1 standard drink = 0.6 oz pur e alcohol) occassionally Sex and Gender Information Value Date Recorded Sex Assigned at Not on file Legal Sex Male 3:29 AM ALUMINUM POURER Gender Identity Not on file Sexual Orientation Not on file documented as of this encounter Miscellaneous Notes * Telephone Encounter - Julianna Vasquez RN - 08/26/2019 4:23 PM CDT Faxed as requested. * Telephone Encounter - Hui Angel - 08/26/2019 3:44 PM CDT [facility] called again about the most recent pace maker interrogation. Asked that it be faxed again to [phone] * Telephone Encounter - Paola Hdez MA - 08/26/2019 2:50 PM CDT Last pacemaker check faxed to [facility] at fax number given. * Telephone Encounter - Shauna Rodriguez - 08/26/2019 1:22 PM CDT [facility] Varela called requesting pt most recent pacer interrogation to be faxed to [phone] [facility] [phone] documented in this encounter Plan of Treatment Not on file documented as of this encounter Visit Diagnoses Not on filedocumented in this encounter Care Teams Road Mixer Operator Relationship Specialty Start Date End Date Rodrick Rincon MD [address] [place] [address] PCP - General Internal Medicine 02/06/18 07/02/24 documented as of this encounter
--- OUTSIDE RECORDS SUMMARY | 2024-11-29 05:18 | XMS_ITS | Encounter Summary ---
Author Organization [facility] Care Team Providers Care Casino Beverage Server Name Role Phone Rodrick Rincon MD Primary Care Provider [phone] Encounter Details Date Type Department Care Team (Latest Contact Info) Description 04/10/2019 Travel Social History Tobacco Use Types Packs/Day Years Used Date Smoking Tobacco: Some Days Pipe Smokeless Tobacco: Never Comments:smokes pipe Alcohol Use Standard Drinks/Week Comments Yes 2 (1 standard drink = 0.6 oz pur e alcohol) occassionally Sex and Gender Information Value Date Recorded Sex Assigned at Not on file Legal Sex Male 3:29 AM BALLASTER Gender Identity Not on file Sexual Orientation Not on file documented as of this encounter Plan of Treatment Not on file documented as of this encounter Visit Diagnoses Not on filedocumented in this encounter Care Teams Casino Beverage Server Relationship Specialty Start Date End Date Rodrick Rincon MD [address] [place] [address] PCP - General Internal Medicine 02/06/18 07/02/24 documented as of this encounter
--- OUTSIDE RECORDS SUMMARY | 2024-11-29 05:18 | XMS_ITS | Encounter Summary ---
Author Organization [facility] Address [address] [address] Care Team Providers Care Electronic Design Engineer Name Role Phone Rodrick Rincon MD Primary Care Provider [phone] Reason for Visit * Cardiology (Routine) - Canceled Specialty Diagnoses / Procedures Referred By Contac t Referred To Contact Diagnoses SSS (sick sinus syndrome) (CMS/HCC) (HCC) Procedures DEVICE CHECK - REMOTE Wilian Olea MD Phone: tel: fax: Referral ID Status Reason Start Date Expiration Date V isits Requested Visits Authorized [id number] Canceled 12/11/2017 06/09/2018 1 1 Encounter Details Date Type Department Care Team (Latest Contact Info) Description 09/18/2018 9:45 AM CDT Ancillary Procedure [facility] Cardiology [facility] [address] SSS (sick sinus syndrome) (CMS/HCC); History of [...] on file Legal Sex Male 3:29 AM DISPATCH LEAD Gender Identity Not on file Sexual Orientation Not on file documented as of this encounter Plan of Treatment Pending Results Name Type Priority Associated Diagnoses Date /Time DEVICE CHECK - REMOTE Cardiac Services Routine SSS (sick sinus syndrome) (CMS/HCC) 09/26/2018 9:11 AM CDT documented as of this encounter Visit Diagnoses Diagnosis SSS (sick sinus syndrome) (CMS/HCC) (HCC) Sinoatrial node dysfunction History of cardiac pacemaker in situ documented in this encounter Care Teams Electronic Design Engineer Relationship Specialty Start Date End Date Rodrick Rincon MD [address] [place] [address] PCP - General Internal Medicine 02/06/18 07/02/24 documented as of this encounter
--- OUTSIDE RECORDS SUMMARY | 2024-11-29 05:18 | XMS_ITS | Encounter Summary ---
Author Organization [facility] Address [address] [facility] [address] [place] [address] Care Team Providers Care Skills Trainer Name Role Phone Rodrick Rincon MD Primary Care Provider [phone] Encounter Details Date Type Department Care Team (Late st Contact Info) Description 05/16/2019 Orders Only [facility] [address] [facility] [address] [place] [phone] Provider, MD Tyler [address] [place], [place] [id number] Social History Tobacco Use Types Packs/Day Years Used Date Smoking Tobacco: Some Days Pipe Smokeless Tobacco: Never Comments:smokes pipe Alcohol Use Standard Drinks/Week Comments Yes 2 (1 standard drink = 0.6 oz pur e alcohol) occassionally Sex and Gender Information Value Date Recorded Sex Assigned at Not on file Legal Sex Male 3:29 AM INFORMATICA Gender Identity Not on file Sexual Orientation Not on file documented as of this encounter Plan of Treatment Not on file documented as of this encounter Procedures Procedure Name Priority Date/Time Associated Diagnosis Comments LIPID PANEL Routine 01/14/2019 12:47 PM INFORMATICA documented in this encounter Results * Lipid panel (01/14/2019 12:47 PM INFORMATICA) SCRIBED Cholesterol, Total 180 0 - 200 EXTERNAL LAB SCRIBED HDL 82 40 - 100 EXTERNAL LAB SCRIBED LDL 78 0 - 100 EXTERNAL LAB SCRIBED Triglycerides 79 0 - 150 EXTERNAL LAB Blood specimen (specimen) us Historical Provider LAB BLOOD ORDERABLES Edit ed Result - Final EXTERNAL LAB documented in this encounter Visit Diagnoses Not on filedocumented in this encounter Care Teams Skills Trainer Relationship Specialty Start Date End Date Rodrick Rincon MD [address] [place] [address] PCP - General Internal Medicine 02/06/18 07/02/24 documented as of this encounter
--- OUTSIDE RECORDS SUMMARY | 2024-11-29 05:18 | XMS_ITS | Encounter Summary ---
Author Organization [facility] Address [address] [address] Care Team Providers Care Putty Mixer Name Role Phone Rodrick Rincon MD Primary Care Provider [phone] Reason for Visit * (Routine) - Closed Specialty Diagnoses / Procedures Referred By Contac t Referred To Contact Diagnoses SSS (sick sinus syndrome) (CMS/HCC) (HCC) Procedures DEVICE CHECK - REMOTE Wilian Olea MD Phone: tel: fax: [facility] Referral ID Status Reason Start Date Expiration Date Visits Re quested Visits Authorized [id number] Closed 09/01/2020 10/01/2021 1 1 Encounter Details Date Type Department Care Team (Latest Contact Info) Description 03/09/2021 7:15 AM CDT Ancillary Procedure [facility] Cardiology [facility] [phone] SSS (sick sinus syndrome) (CMS/HCC); Atrial paroxysmal tachycardia (CMS/HCC); History of cardiac pacemaker in situ Social History Tobacco Use Types Packs/Day Years Used Date Smoking Tobacco: Former Pipe Smokeless Tobacco: Never Comments:smokes pipe Alcohol Use Standard Drinks/Week Comments Yes 2 (1 standard drink = 0.6 oz pur e alcohol) occassionally Sex and Gender Information Value Date Recorded Sex Assigned at Not on file Legal Sex Male 3:29 AM PR INTERN Gender Identity Not on file Sexual Orientation Not on file documented as of this encounter Progress Notes * Cari Huitron RN - 03/09/2021 7:[address] [facility]rick Dual Pacemaker Dx; SSS, PAT. DOI 03/05/[address] Bruno[address] [email or web address] remote home monitor Q3 mo, Office pacer checks Q1 yr. Routine Pacemaker remote. Normal device function. Battery function-2.99V, 10.8 years estimated remaining longevity. Appropriate lead measurements. Presenting rhythm-APVP. AP-45%, GOLF BALL MOLDER->99%. 4 Atrial high rate episodes noted, max duration 2 min. No ventricular high rate episodes noted. Medications; Norvasc, Hydrochlorothiazide, Lisinopril, Lipitor, ASA. See scanned report. [id number] f/u 06/08/2021. documented in this encounter Plan of Treatment Not on file documented as of this encounter Procedures Procedure Name Priority Date/Time Associated Diagnosis Comments DEVICE CHECK - REMOTE Routine 03/09/2021 9:57 AM CDT SSS (sick sinus syndrome) ([facility]) documented in this encounter Results * DEVICE CHECK - REMOTE (03/09/2021 9:57 AM CDT) Anatomical Region Laterality Modality Other Narrative 05/04/2021 2:[address] [facility]rick Dual Pacemaker Dx; SSS, PAT. DOI 03/05/[address] Bruno[address] [email or web address] remote home monitor Q3 mo, Office pacer checks Q1 yr. Routine Pacemaker remote. Normal device function. Battery function-2.99V, 10.8 years estimated remaining longevity. Appropriate lead measurements. Presenting rhythm-APVP. AP-45%, GOLF BALL MOLDER->99%. 4 Atrial high rate episodes noted, max duration 2 min. No ventricular high rate episodes noted. Medications; Norvasc, Hydrochlorothiazide, Lisinopril, Lipitor, ASA. See scanned report. [id number] f/u 06/08/2021. Wilian Olea MD [facility] PROC EDURES Final Result documented in this encounter Visit Diagnoses Diagnosis SSS (sick sinus syndrome) (CMS/HCC) (HCC) Sinoatrial node dysfunction Atrial paroxysmal tachycardia (HCC) Paroxysmal supraventricular tachycardia History of cardiac pacemaker in situ documented in this encounter Care Teams Putty Mixer Relationship Specialty Start Date End Date Rodrick Rincon MD [address] [place], [place] [id number] PCP - General Internal Medicine 02/06/18 07/02/24 documented as of this encounter
--- OUTSIDE RECORDS SUMMARY | 2024-11-29 05:18 | XMS_ITS | Encounter Summary ---
Author Organization [facility] Healthcare Address [address] [place] [address] Care Team Providers Care Sales Team Leader Name Role Phone Fiorella Barcenas MD Primary Care Provider + Encounter Details Date Type Department Care Team (Late st Contact Info) Description 01/30/2018 1:15 PM FISHING GEAR MECHANIC - 01/30/2018 1:45 PM FISHING GEAR MECHANIC Surgery [facility] [address] [place] [address] [place] [address] [place] [address] Colonoscopy Surgery Details Date/Time Status Location OR Service Patient Class Case Class Case Type Trauma Case? 01/30/2018 1:15 PM Posted [facility] ENDOSCOPY GI 03 Gastroenterology Outpatient Elective Panel 1 Procedure LRB Anes Op Region Wound Class Comments Colonoscopy N/A Monitor Anesthes ia Care Class II - Clean Contaminated Surgeon Surgeon Role Service Panel Dakota Bar MD Primary Gastroenterolog y 1 documented in this encounter Social History Tobacco Use Types Packs/Day Years Used Date Smoking Tobacco: Some Days Pipe Smokeless Tobacco: Never Comments:smokes pipe Alcohol Use Standard Drinks/Week Comments Yes 2 (1 standard drink = 0.6 oz pur e alcohol) occassionally Sex and Gender Information Value Date Recorded Sex Assigned at Not on file Legal Sex Male 3:29 AM FISHING GEAR MECHANIC Gender Identity Not on file Sexual Orientation Not on file documented as of this encounter Last Filed Vital Signs Vital Sign Reading Time Taken Comments Blood Pressure 129/73 01/30/2018 1:24 PM FISHING GEAR MECHANIC Pulse 96 01/30/2018 1:24 PM FISHING GEAR MECHANIC Temperature 36.7 ??C (98.1 ??F) 01/30/2018 1:24 PM CS T Respiratory Rate 18 01/30/2018 1:24 PM FISHING GEAR MECHANIC Oxygen Saturation 96% 01/30/2018 1:24 PM FISHING GEAR MECHANIC Inhaled Oxygen Concentration - - Weight 78 kg (172 lb) 01/30/2018 1:24 PM FISHING GEAR MECHANIC Height 175.3 cm (5' 9 ) 01/30/2018 1:24 PM FISHING GEAR MECHANIC Body Mass Index 25.4 01/30/2018 1:24 PM FISHING GEAR MECHANIC documented in this encounter Medications at Time [...] every day 0 0 10/27/2014 4 coenzyme F22-phjntdj E (CO Q-10, WITH VIT E,) 100-5 mg-unit capsule 1 tablet by mouth once a day 0 0 10/27/2014 4 iron bisgly,ps-FA-B-C#12- succ (IROSPAN /) 65 mg-65 mg -1,000 mcg [...] needed for migraine 0 0 02/10/2015 4 evxyqk-icx-I-Mn-herb #21 (GLUCOSAMINE-MSM COMPLEX) tablet 0 0 11/02/2015 [...] route every day 10/27/14 Hermann Kimbrough MD hbeacwu-sxhrqmbbfpdhj-uqlisuxs (EXCEDRIN MIGRAINE) 250-250-65 mg per tablet one [...] every day 10/27/14 Hermann Kimbrough MD coenzyme P87-lhbntxh E (CO Q-10, WITH VIT E,) 100-5 mg-unit capsule 1 tablet by mouth once a day 10/27/14 Hermann Kimbrough MD folic acid (FOLVITE) 400 mcg tablet Take 400 mcg by mouth daily. Historical Provider, czjwyo-dzy-C-Mn-herb#21 (GLUCOSAMINE-MSM COMPLEX) tablet 11/02/15 Wilian Olea MD hydroCHLOROthiazide (HYDRODIURIL) 25 mg tablet Take 1 tablet (25 mg total) by mouth daily. 11/06/17Wilian Olea MD iron bisgly,ps-FA-B-C#12-succ (IROSPAN /) 65 mg-65 mg -1,000 mcg (24) tablet 02/17/17 Wiilan Olea MD lisinopril (PRINIVIL,ZESTRIL) 40 mg tablet [...] take 1 by Oral route once 11/02/15 Magdy Olea MD ondansetron ODT (ZOFRAN-ODT) 4 mg [...] to the patient. Informed consent was signed. ING GEAR MECHANIC ING GEAR MECHANIC documented in this encounter Procedure Notes * Dakota Bar MD - 01/30/2018 6:54 AM CSTAssociated Order(s): COLONOSCOPY ENDOSCOPY LAB Patient Name: Dinesh Saha Procedure Date: 01/30/2018 6:54 AM Admit Type: Outpatient Room: [facility] Date of : 1940 Instrument Name: CF-[id number] Gender: Male Note Status: Finalized Procedure: Colonoscopy Indications: Follow-up of Crohn's disease of the colon, Disease activity assessment of Crohn's disease of the colon -- changed to Stelara 12/1312/06/2016: over 50 ulcers in the proximal [...] bowel preparation was evaluated using the BBPS ([place] Bowel Preparation Scale) with scores of: Right [...] 0 Note Initiated On: 01/30/2018 6:54 AM ING GEAR MECHANIC documented in this encounter Consult Notes * [...] route every day 10/27/14 Hermann Kimbrough MD xuicyzb-gvoqimeujibwi-ixffmjqc (EXCEDRIN MIGRAINE) 250-250-65 mg per tablet one [...] every day 10/27/14 Hermann Kimbrough MD coenzyme S83-jdfogzu E (CO Q-10, WITH VIT E,) 100-5 mg-unit capsule 1 tablet by mouth once a day 10/27/14 Hermann Kimbrough MD folic acid (FOLVITE) 400 mcg tablet Take 400 mcg by mouth daily. Historical Provider, cqvozr-qvz-F-Mn-herb#21 (GLUCOSAMINE-MSM COMPLEX) tablet 11/02/15 Wilian Olea MD [...] Inject subq every 8 weeks Historical Provider, white petrolatum-mineral oil (eucerin) cream 11/02/15 Wilian Olea [...] to the patient. Informed consent was signed. ING GEAR MECHANIC documented in this encounter Plan of Treatment Not on file documented as of this encounter Procedures Procedure Name Priority Date/Time Associated Diagnosis Comments COLONOSCOPY 01/30/2018 1:56 PM FISHING GEAR MECHANIC COLON COLONOSCOPY 01/30/2018 6:54 AM FISHING GEAR MECHANIC documented in this encounter Results * COLONOSCOPY (01/30/2018 6:54 AM FISHING GEAR MECHANIC) Anatomical Region Laterality Modality Other Narrative Procedure Note Dakota Bar MD - 01/30/2018 6:54 AM CST ENDOSCOPY LAB Patient Name: Dinesh Saha Procedure Date: 01/30/2018 6:54 AM Admit Type: Outpatient Room: [facility] Date of : 1940 Instrument Name: CF-[id number] Gender: Male Note Status: Finalized Procedure: Colonoscopy Indications: Follow-up of Crohn's disease of the colon, Disease activity assessment of Crohn's disease of the colon -- changed to Spikelara 12/1312/06/2016: over 50 ulcers in the proximal [...] the bowelpreparation was evaluated using the BBPS ([place] Bowel Preparation Scale) with scores of: Right [...] at 1500 New Bag 01/30/2018 1:43 PM FISHING GEAR MECHANIC 30 mL/hr 30 mL/hr lidocaine (XYLOCAINE) 10 [...] Recently Administered Medications Times are shown in FISHING GEAR MECHANIC. Continuous Medication Order 01/28/2018 01/29/2018 01/30/2018 Lactated [...] dose, Pre-Procedure (GI), Indications: local analgesia 1313 (MAR Hold - Pro vider: Automatic Transfer Provider [...] Transfer Provider - Reason: Patient not available)1822 ([facility] Unhold - Provider: User Epic) documented in [...] 01/30/2018 documented in this encounter Care Teams Sales Team Leader Relationship Specialty Start Date End Date Fiorella Barcenas MD [address] [place] [address] PCP - General 01/30/18 02/05/18 documented as of this encounter
--- OUTSIDE RECORDS SUMMARY | 2024-11-29 05:18 | XMS_ITS | Encounter Summary ---
Author Organization [facility] Medical Group Address [address] [place] [address] Care Team Providers Care Heddler Name Role Phone Rodrick Rincon MD Primary Care Provider [phone] Reason for Referral * (Routine) - Closed Specialty Diagnoses / Procedures Referred By Contac t Referred To Contact Diagnoses SSS (sick sinus syndrome) (CMS/HCC) (HCC) Pacemaker Procedures DEVICE CHECK - IN OFFICE Wilian Olea MD Phone: tel: fax: [facility] Referral ID Status Reason Start Date Expiration Date Visits Re quested Visits Authorized [id number] Closed 05/27/2020 12/06/2021 1 1 Encounter Details Date Type Department Care Team (Late st Contact Info) Description 05/27/2020 Orders Only [facility] Cardiology [address] [facility] [address] [place] [address] Wilian Olea MD [address] [place] [address] [address] [place] [address] SSS (sick sinus syndrome) (CMS/HCC) (Primary Dx); Pacemaker Social History Tobacco Use Types Packs/Day Years Used Date Smoking Tobacco: Some Days Pipe Smokeless Tobacco: Never Comments:smokes pipe Alcohol Use Standard Drinks/Week Comments Yes 2 (1 standard drink = 0.6 oz pur e alcohol) occassionally Sex and Gender Information Value Date Recorded Sex Assigned at Not on file Legal Sex Male 3:29 AM TECHNOLOGY TRAINING ASSOCIATE Gender Identity Not on file Sexual Orientation Not on file documented as of this encounter Plan of Treatment Not on file documented as of this encounter Results * DEVICE CHECK - IN OFFICE (12/02/2020 1:47 PM TECHNOLOGY TRAINING ASSOCIATE) Anatomical Region Laterality Modality Other Narrative 12/03/2020 2:[address]Y TRAINING ASSOCIATE [facility] Dual Pacemaker Dx; SSS, PAT. DOI 03/05/[address] Bruno. [employer] remote home monitor Q3 mo, Office pacer checks Q1 yr. ?? Left pectoral incision well healed without signs of infection. Office pacemaker evaluation demonstrated normal device function. Battery function-2.99V, 10.7 years estimated remaining longevity. Presenting rhythm-APVP. Underlying rhythm-CHB. AP-45%, TRANSIT BUS DRIVER->99%. 3 atrial tachy episodes recorded, 2 min max duration, iegm's ATach. No ventricular arrhythmias noted. No programming changes made. See scanned report. [employer] remote f/u 03/09/2021. ?? 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
--- OUTSIDE RECORDS SUMMARY | 2024-11-29 05:18 | XMS_ITS | Encounter Summary ---
Author Organization [facility] Medical [facility] Address [address] [place] [address] Care Team Providers Care Funeral Greeter Name Role Phone Rodrick Rincon MD Primary Care Provider [phone] Reason for Visit * Reason Comments Follow-up 9 mo follow up on HT N, PAT, AV block, dyslipidemia Encounter Details Date Type Department Care Team (Latest Contact Info) Description 11/07/2018 2:15 PM MACHINE GUIDE BASE WINDER Office Visit [facility] [address] [place] [address] Wilian Olea MD [address] [facility] [address] [place] [address] Benign hypertension (Primary Dx); Complete atrioventricular block (CMS/HCC); Atrial paroxysmal tachycardia (CMS/HCC); Dyslipidemia; Dizziness; Sick sinus syndrome (CMS/HCC); Pacemaker Social History Tobacco Use Types Packs/Day Years Used Date Smoking Tobacco: Some Days Pipe Smokeless Tobacco: Never Comments:smokes pipe Alcohol Use Standard Drinks/Week Comments Yes 2 (1 standard drink = 0.6 oz pur e alcohol) occassionally Sex and Gender Information Value Date Recorded Sex Assigned at Not on file Legal Sex Male 3:29 AM MACHINE GUIDE BASE WINDER Gender Identity Not on file Sexual Orientation Not on file documented as of this encounter Last Filed Vital Signs Vital Sign Reading Time Taken Comments Blood Pressure 130/72 11/07/2018 2:22 PM MACHINE GUIDE BASE WINDER Pulse 81 11/07/2018 2:22 PM MACHINE GUIDE BASE WINDER Temperature - - Respiratory Rate - - Oxygen Saturation 95% 11/07/2018 2:22 PM MACHINE GUIDE BASE WINDER Inhaled Oxygen Concentration - - Weight 79.8 kg (176 lb) 11/07/2018 2:22 PM MACHINE GUIDE BASE WINDER Height 175.3 cm (5' 9 ) 11/07/2018 2:22 PM MACHINE GUIDE BASE WINDER Body Mass Index 25.99 11/07/2018 2:22 PM MACHINE GUIDE BASE WINDER documented in this encounter Progress Notes * Wilian Olea MD - 11/07/2018 2:15 PM CST [facility] DATE OF VISIT: 11/07/2018 CHIEF COMPLAINT Chief Complaint Patient presents with ??? Follow-up 9 mo follow up on HTN, PAT, AV block, dyslipidemia ASSESSMENT Diagnoses and all orders for this visit: Benign hypertension (Primary) Complete atrioventricular block (CMS/HCC) Atrial paroxysmal tachycardia (CMS/HCC) Dyslipidemia Dizziness Sick sinus syndrome (CMS/HCC) Pacemaker PLAN/RECOMMENDATIONS 1. BP under fair control. Continue monitor at home. Monitor BP on routine basis. Call with readings. Continue consistent cardiovascular exercise, weight loss, medication compliance, and low-sodium diet. May change Amlodipine if BP elevated on average. No change at this time. 2. Routine PPM personally reviewed from August 2018 normal fxn, 99% RV pacing last check no new arrhythmias 3. Monitor weight, ensure adequate caloric intake. 4. Stelara doing well for his Crohn's, colonoscopy last week doing well overall 5. No palps suggestive of significant PAT. Monitor burden on PPM check. Over 50% of this visit counseling SSS/PPM, HTN, lipids, medications, lifestyle modification. Follow up in the office in 6 months or sooner as needed. Thank you for allowing me the privilege of participating in the care this very pleasant patient. Please do not hesitate to contact me with any additional questions or concerns. HPI Dinesh Saha is a 78 y.o. male with a PMHx of Crohn's [...] episodes. He denies any prior history of [place], angina, CHF or arrhythmias. He has reasonable [...] having back surgery with Dr. Robert at [facility] in early October. He denies chest pain, palpitations, syncope or near syncope. We received a remote download from his [place] and it was reviewed by Felisa Olea [...] Trung meds, following BP and HR closely. MEDICAL HISTORY Past Medical History: Diagnosis Date [...] 2.5 mg tablet aspirin 81 mg tablet gubhjra-jbxjwzndfmbvk-nhbjqxor (EXCEDRIN MIGRAINE) 250-250-65 mg per tablet atorvastatin (LIPITOR) 20 mg tablet b complex vitamins (B COMPLEX-VITAMIN B12) tablet biotin 5,000 mcg tablet,disintegrating calcium carbonate-vitamin D3 (CALCIUM 500 + D) 500 mg(1,250mg) -400 unit tablet cholecalciferol (VITAMIN D3) 2,000 unit tablet clonazePAM (KlonoPIN) 0.5 mg tablet coenzyme C49-hjttxga E (CO Q-10, WITH VIT E,) 100-5 mg-unit capsule docusate sodium (DOK) 100 mg capsule folic acid (FOLVITE) 400 mcg tablet csorro-dyp-R-Mn-herb#21 (GLUCOSAMINE-MSM COMPLEX) tablet hydroCHLOROthiazide (HYDRODIURIL) 25 mg [...] Review of Systems Constitution: Positive for weight gain. Negative for decreased appetite, diaphoresis, fever, weakness, [...] for environmental allergies. PHYSICAL EXAM Vitals BP 130/72 (BP Location: Right arm, Patient Position: Sitting) Pulse 81 Ht 175.3 cm (5' 9 ) Wt 79.8 kg (176 lb) SpO2 95% BMI 25.99 kg/m?? Weight: 79.8 kg (176 lb) Height: 175.3 cm (5' 9 ) Body mass index is 25.99 kg/m??. Physical Exam Constitutional: He is oriented [...] visit with results is: Orders Only on 02/13/2018 Component Date Value Ref Range Status ??? SCRIBED Cholesterol, Total 01/19/2018 205* 0 - 200 Final ??? SCRIBED HDL 01/19/2018 102* 40 - 100 Final ??? SCRIBED LDL 01/19/2018 78 0 - 100 Final ??? SCRIBED Triglycerides 01/19/2018 70 0 - 150 Final Results for orders placed or performed in visit on 02/13/18 Lipid panel Result Value Ref Range SCRIBED Cholesterol, Total 205 (A) 0 - 200 SCRIBED HDL 102 (A) 40 - 100 SCRIBED LDL 78 0 - 100 SCRIBED Triglycerides 70 0 - 150 Personally reviewed EKG, Echocardiogram, stress test, and bloodwork/lipids. 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 docusate sodium (DOK) 100 mg capsule Take 1 tablet (100 mg total) by mouth 2 (two) times a day as needed for constipation 4 added in this encounter Care Teams Funeral Greeter Relationship Specialty Start Date End Date Rodrick Rincon MD [address] [place] [address] PCP - General Internal Medicine 02/06/18 07/02/24 documented as of this encounter
--- OUTSIDE RECORDS SUMMARY | 2024-11-29 05:18 | XMS_ITS | Encounter Summary ---
Author Organization [facility] Address [address] [place] [address] Care Team Providers Care Automotive Parts Interpreter Name Role Phone Rodrick Rincon MD Primary Care Provider [phone] Reason for Referral * (Routine) - Closed Specialty Diagnoses / Procedures Referred By Contac t Referred To Contact Diagnoses SSS (sick sinus syndrome) (CMS/HCC) (HCC) Procedures DEVICE CHECK - IN OFFICE Wilian Olea MD Phone: tel: fax: [facility] Referral ID Status Reason Start Date Expiration Date Visits Re quested Visits Authorized [id number] Closed 07/12/2019 01/20/2021 1 1 Encounter Details Date Type Department Care Team (Late st Contact Info) Description 07/12/2019 Orders Only [facility] [address] [facility] [address] [place] [address] Wilian Olea MD [address] [facility] [address] [place] [address] SSS (sick sinus syndrome) (CMS/HCC) (Primary Dx) Social History Tobacco Use Types Packs/Day Years Used Date Smoking Tobacco: Some Days Pipe Smokeless Tobacco: Never Comments:smokes pipe Alcohol Use Standard Drinks/Week Comments Yes 2 (1 standard drink = 0.6 oz pur e alcohol) occassionally Sex and Gender Information Value Date Recorded Sex Assigned at Not on file Legal Sex Male 3:29 AM OCCUPATIONAL THERAPY ASSIST Gender Identity Not on file Sexual Orientation Not on file documented as of this encounter Plan of Treatment Pending Results Name Type Priority Associated Diagnoses Date /Time DEVICE CHECK - IN OFFICE Cardiac Services Routine SSS (sick sinus syndrome) ([facility]) 05/27/2020 1:19 PM CDT Scheduled Orders Name Type Priority Associated Diagnoses Orde r Schedule DEVICE CHECK - IN OFFICE Cardiac Services Routine SSS (sick sinus syndrome) (CMS/HCC) Expected: 04/08/2020, Expires: 07/12/2020 documented as of this encounter Visit Diagnoses Diagnosis SSS (sick sinus syndrome) (CMS/HCC) ([facility])- Primary Sinoatrial node dysfunction documented in this encounter Care Teams Automotive Parts Interpreter Relationship Specialty Start Date End Date Rodrick Rincon MD [address] [place] [address] PCP - General Internal Medicine 02/06/18 07/02/24 documented as of this encounter
--- OUTSIDE RECORDS SUMMARY | 2024-11-29 05:18 | XMS_ITS | Encounter Summary ---
Author Organization [facility] Care Team Providers Care Film Casting Operator Name Role Phone Rodrick Rincon MD Primary Care Provider [phone] Encounter Details Date Type Department Care Team (Latest Contact Info) Description 11/22/2019 Travel Social History Tobacco Use Types Packs/Day Years Used Date Smoking Tobacco: Some Days Pipe Smokeless Tobacco: Never Comments:smokes pipe Alcohol Use Standard Drinks/Week Comments Yes 2 (1 standard drink = 0.6 oz pur e alcohol) occassionally Sex and Gender Information Value Date Recorded Sex Assigned at Not on file Legal Sex Male 3:29 AM REPORTING ANALYST Gender Identity Not on file Sexual Orientation Not on file documented as of this encounter Plan of Treatment Not on file documented as of this encounter Visit Diagnoses Not on filedocumented in this encounter Care Teams Film Casting Operator Relationship Specialty Start Date End Date Rodrick Rincon MD [address] [place] [address] PCP - General Internal Medicine 02/06/18 07/02/24 documented as of this encounter
--- OUTSIDE RECORDS SUMMARY | 2024-11-29 05:18 | XMS_ITS | Encounter Summary ---
Author Organization [facility] Address [address] [address] Care Team Providers Care Assembler Liquid Center Name Role Phone Rodrick Rincon MD Primary Care Provider [phone] Reason for Referral * (Routine) - Closed Specialty Diagnoses / Procedures Referred By Contac t Referred To Contact Diagnoses SSS (sick sinus syndrome) (CMS/HCC) (HCC) Procedures DEVICE CHECK - REMOTE Wilian Olea MD Phone: tel: fax: [facility] Referral ID Status Reason Start Date Expiration Date Visits Re quested Visits Authorized [id number] Closed 07/05/2019 01/13/2021 1 1 * (Routine) - Closed Specialty Diagnoses / Procedures Referred By Contac t Referred To Contact Diagnoses SSS (sick sinus syndrome) (CMS/HCC) (HCC) Procedures DEVICE CHECK - REMOTE Wilian Olea MD Phone: tel: fax: [facility] Medical [facility] Referral ID Status Reason Start Date Expiration Date Visits Re quested Visits Authorized [id number] Closed 07/05/2019 01/13/2021 1 1 * (Routine) - Closed Specialty Diagnoses / Procedures Referred By Contac t Referred To Contact Diagnoses SSS (sick sinus syndrome) ([facility]) ([facility]) Procedures DEVICE CHECK - REMOTE Wilian Olea MD Phone: tel: fax: [facility] Referral ID Status Reason Start Date Expiration Date Visits Re quested Visits Authorized [id number] Closed 07/05/2019 01/13/2021 1 1 Encounter Details Date Type Department Care Team (Late st Contact Info) Description 07/05/2019 Orders Only [facility] [address] [place] [address] Wilian Olea MD [address] [facility] [address] [place], [place] [id number] SSS (sick sinus syndrome) ([facility]) (Primary Dx) Social History Tobacco Use Types Packs/Day Years Used Date Smoking Tobacco: Some Days Pipe Smokeless Tobacco: Never Comments:smokes pipe Alcohol Use Standard Drinks/Week Comments Yes 2 (1 standard drink = 0.6 oz pur e alcohol) occassionally Sex and Gender Information Value Date Recorded Sex Assigned at Not on file Legal Sex Male 3:29 AM TOOL AND GAUGE INSPECTOR Gender Identity Not on file Sexual Orientation Not on file documented as of this encounter Plan of Treatment Pending Results Name Type Priority Associated Diagnoses Date /Time DEVICE CHECK - REMOTE Cardiac Services Routine SSS (sick sinus syndrome) ([facility]) 07/16/2019 9:29 AM CDT DEVICE CHECK - REMOTE Cardiac Services Routine SSS (sick sinus syndrome) ([facility]) 10/15/2019 8:30 AM TOOL AND GAUGE INSPECTOR Scheduled Orders Name Type Priority Associated Diagnoses Orde r Schedule DEVICE CHECK - REMOTE Cardiac Services Routine SSS (sick sinus syndrome) ([facility]) Expected: 10/04/2019, Expires: 07/05/2020 DEVICE CHECK - REMOTE Cardiac Services Routine SSS (sick sinus syndrome) ([facility]) Expected: 01/03/2020, Expires: 07/05/2020 documented as of this encounter Results * DEVICE CHECK - REMOTE (09/01/2020 11:23 AM CDT) Anatomical Region Laterality Modality Other Narrative 09/29/2020 8:01 AM TOOL AND GAUGE INSPECTOR [employer] Kendrick Dual Pacemaker Dx; SSS, PAT. DOI 03/05/[address] Bruno[address] Casey remote home monitor Q3 mo, Office pacer checks Q1 yr. ?? Routine Pacemaker remote. Normal device function. Battery function-2.99V, 10.8 years estimated remaining longevity. Appropriate lead measurements. Presenting rhythm-ASVP. AP-47%, MAGAZINE PUBLISHER->99%. 3 Atrial high rate episodes noted, max duration 3 min. No ventricular high rate episodes noted. Medications; Norvasc, Hydrochlorothiazide, Lisinopril, Lipitor. See scanned report. ROV with Dr Olea and pacemaker f/u scheduled 12/02/2020. Wilian Olea MD [facility] C[facility] SERVICES PROC EDURES Final Result documented in this encounter Visit Diagnoses Diagnosis SSS (sick sinus syndrome) (CMS/HCC) (HCC)- Primary Sinoatrial node dysfunction SSS (sick sinus syndrome) (CMS/HCC) (HCC) Sinoatrial node dysfunction Atrial paroxysmal tachycardia (HCC) Paroxysmal supraventricular tachycardia Pacemaker Cardiac pacemaker in situ documented in this encounter Care Teams Assembler Liquid Center Relationship Specialty Start Date End Date Rodrick Rincon MD [address] [place], [place] [id number] PCP - General Internal Medicine 02/06/18 07/02/24 documented as of this encounter
--- OUTSIDE RECORDS SUMMARY | 2024-11-29 05:18 | XMS_ITS | Encounter Summary ---
Author Organization [facility] Address [address] [facility] [address] [place] [address] Care Team Providers Care Nurse Epidemiologist Name Role Phone Rodrick Rincon MD Primary Care Provider [phone] Reason for Visit * (Routine) - Closed Specialty Diagnoses / Procedures Referred By Contac t Referred To Contact Diagnoses SSS (sick sinus syndrome) (CMS/HCC) (HCC) Procedures DEVICE CHECK - IN OFFICE Wilian Olea MD Phone: tel: fax: [facility] Referral ID Status Reason Start Date Expiration Date Visits Re quested Visits Authorized [id number] Closed 07/12/2019 01/20/2021 1 1 Encounter Details Date Type Department Care Team (Latest Contact Info) Description 05/27/2020 1:30 PM CDT Ancillary Procedure [facility] Cardiology [address] [facility] [address] [place] [address] SSS (sick sinus syndrome) (CMS/HCC); Complete atrioventricular block (CMS/HCC); History of cardiac pacemaker in situ Social History Tobacco Use Types Packs/Day Years Used Date Smoking Tobacco: Some Days Pipe Smokeless Tobacco: Never Comments:smokes pipe Alcohol Use Standard Drinks/Week Comments Yes 2 (1 standard drink = 0.6 oz pur e alcohol) occassionally Sex and Gender Information Value Date Recorded Sex Assigned at Not on file 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 DOI 03/05/[address] Bruno[address] [place] remote home monitor Q3 mo, Office pacer checks Q1 yr. Office pacemaker evaluation demonstrated normal device function. Battery function-2.99V, 10.8yrs estimated remaining longevity. Presenting rhythm-APVP. Underlying rhythm-CHB. AP-48%, MULE OPERATOR->99%. No arrhythmias noted. No programming changes made. See scanned report. [employer] remote f/u 09/01/2020. 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
--- OUTSIDE RECORDS SUMMARY | 2024-11-29 05:18 | XMS_ITS | Encounter Summary ---
Author Organization [facility] Address [address] [facility] [address] [place] [address] Care Team Providers Care Electronic Security Specialist Name Role Phone Rodrick Rincon MD Primary Care Provider [phone] Reason for Visit * Reason Comments SSS 6 month f/u Hypertension Complete AV Block Encounter Details Date Type Department Care Team (Latest Contact Info) Description 12/02/2020 1:30 PM LITIGATION SPECIALIST Office Visit [facility] Cardiology [address] [facility] [address] [place] [address] Wilian Olea MD [address] [facility] [address] [place], [place] [id number] Benign hypertension (Primary Dx); Sick sinus syndrome (CMS/HCC); Complete atrioventricular block (CMS/HCC); Atrial paroxysmal tachycardia (CMS/HCC); Dyslipidemia; Pacemaker Social History Tobacco Use Types Packs/Day Years Used Date Smoking Tobacco: Former Pipe Smokeless Tobacco: Never Comments:smokes pipe Alcohol Use Standard Drinks/Week Comments Yes 2 (1 standard drink = 0.6 oz pur e alcohol) occassionally Sex and Gender Information Value Date Recorded Sex Assigned at Not on file Legal Sex Male 3:29 AM 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 SPECIALIST Gender Identity Not on file Sexual Orientation Not on file documented as of this encounter Last Filed Vital Signs Vital Sign Reading Time Taken Comments Blood Pressure 130/68 12/02/2020 1:44 PM LITIGATION SPECIALIST Pulse 64 12/02/2020 1:44 PM LITIGATION SPECIALIST Temperature - - Respiratory Rate - - Oxygen Saturation 95% 12/02/2020 1:44 PM LITIGATION SPECIALIST Inhaled Oxygen Concentration - - Weight 78.3 kg (172 lb 11.2 oz) 12/02/2020 1:44 PM LITIGATION SPECIALIST Height 175.3 cm (5' 9 ) 12/02/2020 1:44 PM LITIGATION SPECIALIST Body Mass Index 25.5 12/02/2020 1:44 PM LITIGATION SPECIALIST documented in this encounter Progress Notes * Wilian Olea MD - 12/02/2020 1:30 PM CST [facility] DATE OF VISIT: 12/02/2020 CHIEF COMPLAINT Chief Complaint Patient presents with ??? SSS 6 month f/u ??? Hypertension ??? Complete AV Block ASSESSMENT Diagnoses and all orders for this visit: Benign hypertension (Primary) Sick sinus syndrome (CMS/HCC) Complete atrioventricular block (CMS/HCC) Atrial paroxysmal tachycardia (CMS/HCC) Dyslipidemia Pacemaker PLAN/RECOMMENDATIONS 1. BP under fair control. Continue monitor at home. Monitor BP on routine basis. Call with readings. Continue consistent cardiovascular exercise, weight loss, medication compliance, and low-sodium diet. May change Amlodipine if BP elevated on average. No change at this time. 2. Routine PPM personally reviewed from 09/01/20 normal fxn, >99% RV pacing last check no new arrhythmias underlying CHB. Not pacemaker dependent. 3. Monitor weight, ensure adequate caloric intake. 4. Remains on Stelara for his Crohn's, colonoscopy last week doing well overall 5. No palps suggestive of significant PAT. Monitor burden on PPM check. 6. Lipids personally reviewed 12/02/20 LDL 91, well controlled. Continue statin therapy and lifestylemodification. -12 lead EKG today personally reviewed electronic [...] or concerns. HPI Dinesh Saha is a 80 y.o. male with a PMHx of Crohn's [...] episodes. He denies any prior history of [place], angina, CHF or arrhythmias. He has reasonable [...] sciatica, seeking specialist referral. He was in [place] for 2 weeks in Jul, and missed [...] having back surgery with Dr. Robert at [facility] in early October. He denies chest pain, palpitations, syncope or near syncope. We received a remote download from his Launch[employer] and it was reviewed by Felisa Olea [...] pains. NO bleeding Crohns under control with Spikela. HAd lipids done at [facility]. 11/22/19 Doing fairly well, BP better after stopping Tylenol he notes as he meticulously tracks hisBP. No bleeding, dizziness, falls or CP. Still taking ASA 81mg daily. 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 No dizziness SOB or CP. BP higher late Monday nights but eats candy once weekly on Sundays. 12/02/20 MEDICAL HISTORY Past Medical History: Diagnosis Date [...] tablet aspirin 81 mg enteric coated tablet tipayaq-caauzjpjsvmlz-vsuupgkt (EXCEDRIN MIGRAINE) 250-250-65 mg per tablet atorvastatin (LIPITOR) 20 mg tablet b complex vitamins (B COMPLEX-VITAMIN B12) tablet biotin 5,000 mcg tablet,disintegrating calcium carbonate-vitamin D3 (CALCIUM 500 + D) 500 mg(1,250mg) -400 unit tablet cholecalciferol (VITAMIN D3) 2,000 unit tablet clonazePAM (KlonoPIN) 0.5 mg tablet coenzyme R19-jopetsa E (CO Q-10, WITH VIT E,) 100-5 mg-unit capsule docusate sodium (DOK) 100 mg capsule folic acid (FOLVITE) 400 mcg tablet cobhfl-pxk-L-Mn-herb#21 (GLUCOSAMINE-MSM COMPLEX) tablet hydroCHLOROthiazide (HYDRODIURIL) 25 mg [...] for environmental allergies. PHYSICAL EXAM Vitals BP 130/68 (BP Location: Left arm, Patient Position: Sitting) Pulse 64 Ht 175.3 cm (5' 9 ) Wt 78.3 kg (172 lb 11.2 oz) SpO2 95% BMI 25.50 kg/m?? Weight: 78.3 kg (172 lb 11.2 oz) Height: 175.3 cm (5' 9 ) Body mass index is 25.5 kg/m??. Physical Exam Constitutional: He is oriented [...] distension and no mass. There is no abdominal tenderness. There is no rebound and no guarding. Musculoskeletal: Normal range of motion. General: Edema present. No tenderness or deformity. Comments: Trace LLE edema Lymphadenopathy: He has no cervical adenopathy. Neurological: [...] checks, and bloodwork/lipids. 10/15/19 PPM check; >99% CANDLE POURER, no atrial tachyarrhythmias, no A.Fib, normal device function Nando Olea MD, [facility] GATION SPECIALIST documented in this encounter Miscellaneous Notes * Addendum Note - Julianna Craft MA - 12/02/2020 1:30 PM CSTAddended by: JULIANNA CRAFT on: 12/07/2020 11:22 AM Modules accepted: Orders GATION SPECIALIST documented in this encounter Plan of Treatment Not on file documented as of this encounter Procedures Procedure Name Priority Date/Time Associated Diagnosis Comments POCT LIPID PANEL Routine 12/02/2020 3:06 PM LITIGATION SPECIALIST Dyslipidemia ECG 12-LEAD Routine 12/02/2020 Sick sinus syndrome (CMS/HCC) documented in this encounter Results * POCT lipid panel (12/02/2020 3:06 PM LITIGATION SPECIALIST) Cholesterol, POC 209 mg/dL Comment:GLU = 83 HDL, POC 100 mg/dL Comment:>100 Triglycerides, POC 86 mg/dL LDL Cholesterol POC 91 mg/dL Chol/HDL Ratio, POC N/A Non-HDL Cholesterol, POC N/A mg/dL Cholesterol Total, POC 209 mg/dL Capillary blood 12/02/2020 3 :06 PM LITIGATION SPECIALIST us Wilian Olea MD POINT OF CARE TEST ORDER GOGO Final Result * ECG 12 lead (12/02/2020) us Wilian Olea MD ECG ORDERABLES Final Re sult documented in this encounter Visit Diagnoses Diagnosis Benign hypertension- Primary Essential hypertension, benign Sick sinus syndrome (CMS/HCC) (HCC) Sinoatrial node dysfunction Complete atrioventricular block (CMS/HCC) (HCC) Atrioventricular block, complete Atrial paroxysmal tachycardia (HCC) Paroxysmal supraventricular tachycardia Dyslipidemia Other and unspecified hyperlipidemia Pacemaker Cardiac pacemaker in situ documented in this encounter Care Teams Electronic Security Specialist Relationship Specialty Start Date End Date Rodrick Rincon MD [address] [place], [place] [phone] PCP - General Internal Medicine 02/06/18 07/02/24 documented as of this encounter
--- OUTSIDE RECORDS SUMMARY | 2024-11-29 05:18 | XMS_ITS | Encounter Summary ---
Author Organization [facility] Address [address] [facility] [address] [place] [address] Care Team Providers Care Sludge Control Attendant Name Role Phone Rodrick Rincon MD Primary Care Provider [phone] Reason for Visit * (Routine) - Closed Specialty Diagnoses / Procedures Referred By Contac t Referred To Contact Diagnoses SSS (sick sinus syndrome) (CMS/HCC) (HCC) Procedures DEVICE CHECK - IN OFFICE Wilian Olea MD Phone: tel: fax: Referral ID Status Reason Start Date Expiration Date Visits Re quested Visits Authorized [id number] Closed 02/06/2018 08/05/2018 1 1 Encounter Details Date Type Department Care Team (Latest Contact Info) Description 03/14/2018 3:30 PM CDT Ancillary Procedure [facility] Cardiology [address] [facility] [address] [place] [address] SSS (sick sinus syndrome) (CMS/HCC); History of [...] on file 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 DOI 03/05/[address] Bruno[address] Casey remote home monitor Q3 mo, Office pacer checks Q1 yr. Office pacemaker evaluation demonstrated normal device function. Battery function-3.01V, 11 yrs estimated remaining longevity. Presenting rhythm-ASVP. Underlying rhythm-Second Degree AVB. AP-22%, CLOTHES SHAKER->99%. No arrhythmias noted. No programming changes made. [employer] f/u 06/19/2018. documented in this encounter Plan of Treatment Not on file documented as of this encounter Procedures Procedure Name Priority Date/Time Associated Diagnosis Comments DEVICE CHECK - IN OFFICE Routine 03/14/2018 3:31 PM CDT SSS (sick sinus syndrome) (CMS/HCC) documented in this encounter Results * DEVICE CHECK - IN OFFICE (03/14/2018 3:31 PM CDT) Anatomical Region Laterality Modality Other Narrative 03/15/2018 2:[address] Kendrick Dual Pacemaker Dx; SSS, PAT. DOI 03/05/[address] Bruno[address] Casey remote home monitor Q3 mo, Office pacer checks Q1 yr. Office pacemaker evaluation demonstrated normal device function. Battery function-3.01V, 11 yrs estimated remaining longevity. Presenting rhythm-ASVP. Underlying rhythm-Second Degree AVB. AP-22%, CLOTHES SHAKER->99%. No arrhythmias noted. No programming changes made. [employer] f/u 06/19/2018. ?? Wilian Olea MD CV CARDIAC SERVICES PROC EDURES Final Result documented in this encounter Visit Diagnoses Diagnosis SSS (sick sinus syndrome) (CMS/HCC) (HCC) Sinoatrial node dysfunction History of cardiac pacemaker in situ documented in this encounter Care Teams Sludge Control Attendant Relationship Specialty Start Date End Date Rodrick Rincon MD [address] [place] [address] PCP - General Internal Medicine 02/06/18 07/02/24 documented as of this encounter
--- OUTSIDE RECORDS SUMMARY | 2024-11-29 05:18 | XMS_ITS | Encounter Summary ---
Author Organization [facility] Address [address] [address] Care Team Providers Care Offbearer Name Role Phone Rodrick Rincon MD Primary Care Provider [phone] Reason for Visit * (Routine) - Closed Specialty Diagnoses / Procedures Referred By Contac t Referred To Contact Diagnoses SSS (sick sinus syndrome) (CMS/HCC) (HCC) Procedures DEVICE CHECK - REMOTE Wilian Olea MD Phone: tel: fax: [facility] Referral ID Status Reason Start Date Expiration Date Visits Re quested Visits Authorized [id number] Closed 07/05/2019 01/13/2021 1 1 Encounter Details Date Type Department Care Team (Latest Contact Info) Description 09/01/2020 7:15 AM CDT Ancillary Procedure [facility] Cardiology [facility] [address] SSS (sick sinus syndrome) (CMS/HCC); Atrial paroxysmal [...] on file 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 DOI 03/05/[address] Bruno[address] [place] remote home monitor Q3 mo, Office pacer checks Q1 yr. Routine Pacemaker remote. Normal device function. Battery function-2.99V, 10.8 years estimated remaining longevity. Appropriate lead measurements. Presenting rhythm-ASVP. AP-47%, WOOL HAT FINISHER->99%. 3 Atrial high rate episodes noted, max duration 3 min. No ventricular high rate episodes noted. Medications; Norvasc, Hydrochlorothiazide, Lisinopril, Lipitor. See scanned report. ROV with Dr Olea and pacemaker f/u scheduled 12/02/2020. documented in this encounter Plan of Treatment Not on file documented as of this encounter Procedures Procedure Name Priority Date/Time Associated Diagnosis Comments DEVICE CHECK - REMOTE Routine 09/01/2020 11:23 AM CDT SSS (sick sinus syndrome) ([facility]) documented in this encounter Results * DEVICE CHECK - REMOTE (09/01/2020 11:23 AM CDT) Anatomical Region Laterality Modality Other Narrative 09/29/2020 8:[address] Kendrick Dual Pacemaker Dx; SSS, PAT. DOI 03/05/[address] Bruno[address] [employer] remote home monitor Q3 mo, Office pacer checks Q1 yr. ?? Routine Pacemaker remote. Normal device function. Battery function-2.99V, 10.8 years estimated remaining longevity. Appropriate lead measurements. Presenting rhythm-ASVP. AP-47%, WOOL HAT FINISHER->99%. 3 Atrial high rate episodes noted, max duration 3 min. No ventricular high rate episodes noted. Medications; Norvasc, Hydrochlorothiazide, Lisinopril, Lipitor. See scanned report. ROV with Dr Olea and pacemaker f/u scheduled 12/02/2020. us Wilian Olea MD CV CARDIAC SERVICES PROC EDURES Final Result documented in this encounter Visit Diagnoses Diagnosis SSS (sick sinus syndrome) (CMS/HCC) (HCC) Sinoatrial node dysfunction Atrial paroxysmal tachycardia (HCC) Paroxysmal supraventricular tachycardia Pacemaker Cardiac pacemaker in situ documented in this encounter Care Teams Offbearer Relationship Specialty Start Date End Date Rodrick Rincon MD [address] [place] [id number] PCP - General Internal Medicine 02/06/18 07/02/24 documented as of this encounter
--- OUTSIDE RECORDS SUMMARY | 2024-11-29 05:18 | XMS_ITS | Encounter Summary ---
Author Organization [facility] Address [address] [facility] [address] [place] [address] Care Team Providers Care Supervisor Sheet Manufacturing Name Role Phone Rodrick Rincon MD Primary Care Provider [phone] Reason for Referral * Cardiology (Routine) - Closed Specialty Diagnoses / Procedures Referred By Contac t Referred To Contact Diagnoses SSS (sick sinus syndrome) (CMS/HCC) (HCC) Atrial paroxysmal tachycardia (HCC) Pacemaker Procedures DEVICE CHECK - IN OFFICE Wilian Olea MD Phone: tel: fax: [facility] Referral ID Status Reason Start Date Expiration Date Visits Re quested Visits Authorized [id number] Closed 12/02/2020 01/01/2022 1 1 LICENSEE Encounter Details Date Type Department Care Team (Late st Contact Info) Description 12/02/2020 Orders Only [facility] Cardiology [address] [facility] [address] [place] [address] Wilian Olea MD [address] [place] [address] [address] [place] [address] SSS (sick sinus syndrome) (CMS/HCC) (Primary Dx); Atrial paroxysmal tachycardia (CMS/HCC); Pacemaker Social History Tobacco Use Types Packs/Day Years Used Date Smoking Tobacco: Former Pipe Smokeless Tobacco: Never Comments:smokes pipe Alcohol Use Standard Drinks/Week Comments Yes 2 (1 standard drink = 0.6 oz pur e alcohol) occassionally Sex and Gender Information Value Date Recorded Sex Assigned at Not on file Legal 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 DOI 03/05/[address] Bruno. [employer] remote home monitor Q3 mo, Office pacer checks Q1 yr. Battery Advisory. Office pacemaker interrogation performed by [employer] unit support representative. Battery function-2.98V, 10.6 years remaining battery life to ANGIE. Presenting rhythm-ASVP. AP-50%, TERRITORY ACCOUNT MANAGER->99%. See scanned report. [employer] remote f/u 03/22/2022. Wilian Olea MD CV CARDIAC SERVICES PROC EDURES Final Result documented in this encounter Visit Diagnoses Diagnosis SSS (sick sinus syndrome) (CMS/HCC) (HCC)- Primary Sinoatrial node dysfunction Atrial paroxysmal tachycardia (HCC) Paroxysmal supraventricular tachycardia Pacemaker Cardiac pacemaker in situ SSS (sick sinus syndrome) (CMS/HCC) (HCC) Sinoatrial node dysfunction Atrial paroxysmal tachycardia (HCC) Paroxysmal supraventricular tachycardia Pacemaker Cardiac pacemaker in situ History of cardiac pacemaker in situ documented in this encounter Care Teams Supervisor Sheet Manufacturing Relationship Specialty Start Date End Date Rodrick Rincon MD [address] [place], [place] [id number] PCP - General Internal Medicine 02/06/18 07/02/24 documented as of this encounter
--- OUTSIDE RECORDS SUMMARY | 2024-11-29 05:18 | XMS_ITS | Encounter Summary ---
Author Organization [facility] Address [address] [facility] [address] [place] [address] Care Team Providers Care Architecture Technician Name Role Phone Rodirck Rincon MD Primary Care Provider [phone] Reason for Visit * Reason Comments Follow-up 6 mo follwo up on HT N, AV block, PAT, dyslipidemia, SSS Encounter Details Date Type Department Care Team (Latest Contact Info) Description 05/15/2019 1:15 PM CDT Office Visit [facility] [address] [facility] [address] [place] [address] Wilian Olea MD [address] [facility] [address] [place] [address] Complete atrioventricular block (CMS/HCC) (Primary Dx); Benign hypertension; Atrial paroxysmal tachycardia (CMS/HCC); Dyslipidemia; History of cardiac pacemaker in situ; Sick sinus syndrome (CMS/HCC) Social History Tobacco Use Types Packs/Day Years Used Date Smoking Tobacco: Some Days Pipe Smokeless Tobacco: Never Comments:smokes pipe Alcohol Use Standard Drinks/Week Comments Yes 2 (1 standard drink = 0.6 oz pur e alcohol) occassionally Sex and Gender Information Value Date Recorded Sex Assigned at Not on file 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 Gender Identity Not on file Sexual Orientation Not on file documented as of this encounter Last Filed Vital Signs Vital Sign Reading Time Taken Comments Blood Pressure 122/72 05/15/2019 1:28 PM CDT Pulse 64 05/15/2019 1:28 PM CDT Temperature - - Respiratory Rate - - Oxygen Saturation 93% 05/15/2019 1:28 PM CDT Inhaled Oxygen Concentration - - Weight 78.5 kg (173 lb) 05/15/2019 1:28 PM CDT Height 175.3 cm (5' 9 ) 05/15/2019 1:28 PM CDT Body Mass Index 25.55 05/15/2019 1:28 PM CDT documented in this encounter Progress Notes * Wilian Olea MD - 05/15/2019 1:15 PM CDT [facility] DATE OF VISIT: 05/15/2019 CHIEF COMPLAINT Chief Complaint Patient presents with ??? Follow-up 6 mo follwo up on HTN, AV block, PAT, dyslipidemia, SSS ASSESSMENT Diagnoses and all orders for this visit: Complete atrioventricular block (CMS/HCC) (Primary) Benign hypertension Atrial paroxysmal tachycardia (CMS/HCC) Dyslipidemia History of cardiac pacemaker in situ Sick sinus syndrome (CMS/HCC) PLAN/RECOMMENDATIONS 1. BP under fair control. Continue [...] Monitor weight, ensure adequate caloric intake. 4. Spikelara doing well for his Crohn's, colonoscopy last week doing well overall 5. No palps suggestive of significant PAT. Monitor burden on PPM check. 6. Borderline indication for ASA at this time. Over 50% of this visit counseling SSS/PPM, [...] episodes. He denies any prior history of CT, angina, CHF or arrhythmias. He has reasonable [...] sciatica, seeking specialist referral. He was in [place] for 2 weeks in Jul, and missed [...] having back surgery with Dr. Robert at [facility] in early October. He denies chest [...] control with Stelara. HAd lipids done at [place]. MEDICAL HISTORY Past Medical History: Diagnosis Date [...] Use Topics ??? Alcohol use: Yes Alcohol/week: 1.2 oz Types: 2 Cans of beer per week Comment: occassionally ??? Drug use: No Family History Problem Relation Age of Onset ??? Alzheimer's disease Mother MEDICATIONS HOME MEDICATIONS : acetaminophen (PAIN RELIEVER) 500 mg capsule amLODIPine (NORVASC) 2.5 mg tablet aspirin 81 mg tablet cglohxs-lusykefqkrbpn-xptqwiru (EXCEDRIN MIGRAINE) 250-250-65 mg per tablet atorvastatin (LIPITOR) 20 mg tablet b complex vitamins (B COMPLEX-VITAMIN B12) tablet biotin 5,000 mcg tablet,disintegrating calcium carbonate-vitamin D3 (CALCIUM 500 + D) 500 mg(1,250mg) -400 unit tablet cholecalciferol (VITAMIN D3) 2,000 unit tablet clonazePAM (KlonoPIN) 0.5 mg tablet coenzyme S84-pinuaki E (CO Q-10, WITH VIT E,) 100-5 mg-unit capsule docusate sodium (DOK) 100 mg capsule folic acid (FOLVITE) 400 mcg tablet elytzq-gsv-F-Mn-herb#21 (GLUCOSAMINE-MSM COMPLEX) tablet hydroCHLOROthiazide (HYDRODIURIL) 25 mg [...] for environmental allergies. PHYSICAL EXAM Vitals BP 122/72 (BP Location: Right arm, Patient Position: Sitting) Pulse 64 Ht 175.3 cm (5' 9 ) Wt 78.5 kg (173 lb) SpO2 93% BMI 25.55 kg/m?? Weight: 78.5 kg (173 [...] stress test, and bloodwork/lipids. Nando Olea MD, [facility] documented in this encounter Plan of Treatment Not on file documented as of this encounter Visit Diagnoses Diagnosis Complete atrioventricular block (CMS/HCC) (HCC)- Primary Atrioventricular block, complete Benign hypertension Essential hypertension, benign Atrial paroxysmal tachycardia (HCC) Paroxysmal supraventricular tachycardia Dyslipidemia Other and unspecified hyperlipidemia History of cardiac pacemaker in situ Sick sinus syndrome (CMS/HCC) (HCC) Sinoatrial node dysfunction documented in this encounter Care Teams Architecture Technician Relationship Specialty Start Date End Date Rodrick Rincon MD [address] [place] [address] PCP - General Internal Medicine 02/06/18 07/02/24 documented as of this encounter
--- OUTSIDE RECORDS SUMMARY | 2024-11-29 05:18 | XMS_ITS | Encounter Summary ---
Author Organization [facility] Address [address] [facility] [address] [place] [address] Care Team Providers Care Supervisor Liquefaction Name Role Phone Rodrick Rincon MD Primary Care Provider [phone] Reason for Visit * Reason Comments Follow-up 6 mo follow up on HT N, PAT, complete AV block, dyslipidemia Encounter Details Date Type Department Care Team (Latest Contact Info) Description 05/27/2020 2:00 PM CDT Office Visit [facility] Cardiology [address] [facility] [address] [place] [address] Wilian Olea MD [address] [facility] [address] [place] [address] Complete atrioventricular block (CMS/HCC) (Primary Dx); Benign hypertension; Atrial paroxysmal tachycardia (CMS/HCC); Dyslipidemia; History of cardiac pacemaker in situ Social History Tobacco Use Types Packs/Day Years Used Date Smoking Tobacco: Some Days Pipe Smokeless Tobacco: Never Comments:smokes pipe Alcohol Use Standard Drinks/Week Comments Yes 2 (1 standard drink = 0.6 oz pur e alcohol) occassionally Sex and Gender Information Value Date Recorded Sex Assigned at Not on file 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 Gender Identity Not on file Sexual Orientation Not on file documented as of this encounter Last Filed Vital Signs Vital Sign Reading Time Taken Comments Blood Pressure 136/86 05/27/2020 1:46 PM CDT Pulse 60 05/27/2020 1:46 PM CDT Temperature - - Respiratory Rate - - Oxygen Saturation 94% 05/27/2020 1:46 PM CDT Inhaled Oxygen Concentration - - Weight 77.1 kg (170 lb) 05/27/2020 1:46 PM CDT Height 175.3 cm (5' 9 ) 05/27/2020 1:46 PM CDT Body Mass Index 25.1 05/27/2020 1:46 PM CDT documented in this encounter Progress Notes * Wilian Olea MD - 05/27/2020 2:00 PM CDT [facility] DATE OF VISIT: 05/27/2020 CHIEF COMPLAINT Chief Complaint Patient presents with ??? Follow-up 6 mo follow up on HTN, PAT, complete AV block, dyslipidemia ASSESSMENT Diagnoses and all orders for this visit: Complete atrioventricular block (CMS/HCC) (Primary) Benign hypertension Atrial paroxysmal tachycardia (CMS/HCC) Dyslipidemia History of cardiac pacemaker in situ PLAN/RECOMMENDATIONS 1. BP under fair control. Continue monitor at home. Monitor BP on routine basis. Call with readings. Continue consistent cardiovascular exercise, weight loss, medication compliance, and low-sodium diet. May change Amlodipine if BP elevated on average. No change at this time. 2. Routine PPM personally reviewed from today normal fxn, >99% RV pacing last check no new arrhythmias underlying CHB. Not pacemaker dependent. 3. Monitor weight, ensure adequate caloric intake. 4. Remains on Stelara for his Crohn's, colonoscopy last week doing well overall 5. No palps suggestive of significant PAT. Monitor burden on PPM check. 6. Lipids personally reviewed 11/22/19 LDL 78, well [...] episodes. He denies any prior history of [place], angina, CHF or arrhythmias. He has reasonable [...] sciatica, seeking specialist referral. He was in [place] for 2 weeks in Jul, and missed [...] having back surgery with Dr. Robert at [facility] in early October. He denies chest pain, palpitations, syncope or near syncope. We received a remote download from his [place] and it was reviewed by Felisa Olea [...] control with Stelara. HAd lipids done at [place]. 11/22/19 Doing fairly well, BP better after stopping Tylenol he notes as he meticulously tracks hisBP. No bleeding, dizziness, falls or CP. Still taking ASA 81mg daily. 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 No dizziness SOB or CP. BP higher late Monday nights but eats candy once weekly on Sundays. MEDICAL HISTORY Past Medical History: Diagnosis Date [...] tablet aspirin 81 mg enteric coated tablet oblmaea-lixnscrwgmcqj-zwohvmjz (EXCEDRIN MIGRAINE) 250-250-65 mg per tablet atorvastatin (LIPITOR) 20 mg tablet b complex vitamins (B COMPLEX-VITAMIN B12) tablet biotin 5,000 mcg tablet,disintegrating calcium carbonate-vitamin D3 (CALCIUM 500 + D) 500 mg(1,250mg) -400 unit tablet cholecalciferol (VITAMIN D3) 2,000 unit tablet clonazePAM (KlonoPIN) 0.5 mg tablet coenzyme Y85-qkobxkh E (CO Q-10, WITH VIT E,) 100-5 mg-unit capsule docusate sodium (DOK) 100 mg capsule folic acid (FOLVITE) 400 mcg tablet zxlgqh-yis-B-Mn-herb#21 (GLUCOSAMINE-MSM COMPLEX) tablet hydroCHLOROthiazide (HYDRODIURIL) 25 mg [...] for environmental allergies. PHYSICAL EXAM Vitals BP 136/86 (BP Location: Left arm, Patient Position: Sitting) Pulse 60 Ht 175.3 cm (5' 9 ) Wt 77.1 kg (170 lb) SpO2 94% BMI 25.10 kg/m?? Weight: 77.1 kg (170 lb) Height: 175.3 cm (5' 9 ) Body mass index is 25.1 kg/m??. Physical Exam Constitutional: He is oriented [...] checks, and bloodwork/lipids. 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 aspirin 81 mg enteric coated tablet Take 1 tablet (81 mg total) by mouth daily 11/22/2024 added in this encounter Care Teams Supervisor Liquefaction Relationship Specialty Start Date End Date Rodrick Rincon MD [address] [place] [address] PCP - General Internal Medicine 02/06/18 07/02/24 documented as of this encounter
--- OUTSIDE RECORDS SUMMARY | 2024-11-29 05:18 | XMS_ITS | Encounter Summary ---
Author Organization [facility] Address [address] [address] Care Team Providers Care Inspector Packager Name Role Phone Rodrick Rincon MD Primary Care Provider [phone] Reason for Visit * Cardiology (Routine) - Canceled Specialty Diagnoses / Procedures Referred By Contac t Referred To Contact Diagnoses SSS (sick sinus syndrome) (CMS/HCC) (HCC) Procedures DEVICE CHECK - REMOTE Wilian Olea MD Phone: tel: fax: Referral ID Status Reason Start Date Expiration Date V isits Requested Visits Authorized [id number] Canceled 12/11/2017 06/09/2018 1 1 Encounter Details Date Type Department Care Team (Latest Contact Info) Description 06/19/2018 9:45 AM CDT Ancillary Procedure 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 Gender Identity Not on file Sexual Orientation Not on file documented as of this encounter Plan of Treatment Pending Results Name Type Priority Associated Diagnoses Date /Time DEVICE CHECK - REMOTE Cardiac Services Routine SSS (sick sinus syndrome) (CMS/HCC) 06/25/2018 4:39 PM CDT documented as of this encounter Visit Diagnoses Diagnosis SSS (sick sinus syndrome) (CMS/HCC) (HCC) Sinoatrial node dysfunction History of cardiac pacemaker in situ documented in this encounter Care Teams Inspector Packager Relationship Specialty Start Date End Date Rodrick Rincon MD [address] [place] [address] PCP - General Internal Medicine 02/06/18 07/02/24 documented as of this encounter
--- OUTSIDE RECORDS SUMMARY | 2024-11-29 05:18 | XMS_ITS | Encounter Summary ---
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
--- OUTSIDE RECORDS SUMMARY | 2024-11-29 05:18 | XMS_ITS | Encounter Summary ---
Author Organization [facility] Address [address] [facility] [address] [place] [address] Care Team Providers Care Office Support Clerk Name Role Phone Rodrick Rincon MD Primary Care Provider [phone] Reason for Referral * (Routine) - Closed Specialty Diagnoses / Procedures Referred By Contac t Referred To Contact Diagnoses SSS (sick sinus syndrome) (CMS/HCC) (HCC) Procedures DEVICE CHECK - REMOTE Wilian Olea MD Phone: tel: fax: [facility] Referral ID Status Reason Start Date Expiration Date Visits Re quested Visits Authorized [id number] Closed 10/15/2019 04/25/2021 1 1 R INCIDENT RESPONDER Encounter Details Date Type Department Care Team (Late st Contact Info) Description 10/15/2019 Orders Only [facility] [address] [facility] [address] [place] [address] Wilian Olea MD [facility] [address] SSS (sick sinus syndrome) (CMS/HCC) (Primary Dx) Social History Tobacco Use Types Packs/Day Years Used Date Smoking Tobacco: Some Days Pipe Smokeless Tobacco: Never Comments:smokes pipe Alcohol Use Standard Drinks/Week Comments Yes 2 (1 standard drink = 0.6 oz pur e alcohol) occassionally Sex and Gender Information Value Date Recorded Sex Assigned at Not on file 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 Gender Identity Not on file Sexual Orientation Not on file documented as of this encounter Plan of Treatment Pending Results Name Type Priority Associated Diagnoses Date /Time DEVICE CHECK - REMOTE Cardiac Services Routine SSS (sick sinus syndrome) (CMS/[facility]) 01/14/2020 10:42 AM CYBER INCIDENT RESPONDER Scheduled Orders Name Type Priority Associated Diagnoses Orde r Schedule DEVICE CHECK - REMOTE Cardiac Services Routine SSS (sick sinus syndrome) (CMS/HCC) Expected: 01/14/2020, Expires: 10/15/2020 documented as of this encounter Visit Diagnoses Diagnosis SSS (sick sinus syndrome) (CMS/HCC) ([facility])- Primary Sinoatrial node dysfunction documented in this encounter Care Teams Office Support Clerk Relationship Specialty Start Date End Date Rodrick Rincon MD [address] [place] [address] PCP - General Internal Medicine 02/06/18 07/02/24 documented as of this encounter
--- OUTSIDE RECORDS SUMMARY | 2024-11-29 05:18 | XMS_ITS | Encounter Summary ---
Author Organization [facility] Address [address] [facility] [address] [place] [address] Care Team Providers Care Financial Officer Name Role Phone Rodrick Rincon MD Primary Care Provider [phone] Reason for Visit * (Routine) - Closed Specialty Diagnoses / Procedures Referred By Contac t Referred To Contact Diagnoses SSS (sick sinus syndrome) (CMS/HCC) (HCC) Pacemaker Procedures DEVICE CHECK - IN OFFICE Wilian Olea MD Phone: tel: fax: [facility] Referral ID Status Reason Start Date Expiration Date Visits Re quested Visits Authorized [id number] Closed 05/27/2020 12/06/2021 1 1 Encounter Details Date Type Department Care Team (Latest Contact Info) Description 12/02/2020 1:00 PM PRODUCTION CONTROL EXPERT Ancillary Procedure [facility] Cardiology [address] [facility] [address] [place] [address] SSS (sick sinus syndrome) (CMS/HCC); Pacemaker; Atrial paroxysmal tachycardia (CMS/HCC); Complete atrioventricular block [...] on file Legal Sex Male 3:29 AM PRODUCTION CONTROL 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 DOI 03/05/[address] Bruno. [employer] remote home monitor Q3 mo, Office pacer checks Q1 yr. Left pectoral incision well healed without signs of infection. Office pacemaker evaluation demonstrated normal device function. Battery function-2.99V, 10.7 years estimated remaining longevity. Presenting rhythm-APVP. Underlying rhythm-CHB. AP-45%, STALLION KEEPER->99%. 3 atrial tachy episodes recorded, 2 min max duration, iegm's ATach. No ventricular arrhythmias noted. No programming changes made. See scanned report. [employer] f/u 03/09/2021. UCTION CONTROL EXPERT documented in this encounter Plan of Treatment Not on file documented as of this encounter Procedures Procedure Name Priority Date/Time Associated Diagnosis Comments DEVICE CHECK - IN OFFICE Routine 12/02/2020 1:47 PM PRODUCTION CONTROL EXPERT SSS (sick sinus syndrome) (CMS/HCC) Pacemaker documented in this encounter Results * DEVICE CHECK - IN OFFICE (12/02/2020 1:47 PM PRODUCTION CONTROL EXPERT) Anatomical Region Laterality Modality Other Narrative 12/03/2020 2:[address] [employer]rick Dual Pacemaker Dx; SSS, PAT. DOI 03/05/[address] Bruno[address] [employer] remote home monitor Q3 mo, Office pacer checks Q1 yr. ?? Left pectoral incision well healed without signs of infection. Office pacemaker evaluation demonstrated normal device function. Battery function-2.99V, 10.7 years estimated remaining longevity. Presenting rhythm-APVP. Underlying rhythm-CHB. AP-45%, STALLION KEEPER->99%. 3 atrial tachy episodes recorded, 2 min max duration, iegm's ATach. No ventricular arrhythmias noted. No programming changes made. See scanned report. [facility] f/u 03/09/2021. ?? Wilain Olea MD CV CARDIAC SERVICES PROC EDURES Final Result documented in this encounter Visit Diagnoses Diagnosis SSS (sick sinus syndrome) (CMS/HCC) (HCC) Sinoatrial node dysfunction Pacemaker Cardiac pacemaker in situ Atrial paroxysmal tachycardia (HCC) Paroxysmal supraventricular tachycardia Complete atrioventricular block (CMS/HCC) (HCC) Atrioventricular block, complete History of cardiac pacemaker in situ documented in this encounter Care Teams Financial Officer Relationship Specialty Start Date End Date Rodrick Rincon MD [address] [place] [address] PCP - General Internal Medicine 02/06/18 07/02/24 documented as of this encounter
--- OUTSIDE RECORDS SUMMARY | 2024-11-29 05:18 | XMS_ITS | Encounter Summary ---
Author Organization [facility] Address [address] [place] [address] Care Team Providers Care Occupational Therapy Instructor Name Role Phone Fiorella Barcenas MD Primary Care Provider + Fiorella Barcenas MD Primary Care Provider + Encounter Details Date Type Department Care Team (Late st Contact Info) Description 01/03/2018 Telephone [facility] [address] [place] [address] Wilian Olea MD [address] [facility] [address] [place] [address] Social History Tobacco Use Types Packs/Day Years Used Date Smoking Tobacco: Some Days Pipe Smokeless Tobacco: Never Alcohol Use Standard Drinks/Week Comments Yes 2 (1 standard drink = 0.6 oz pur e alcohol) occassionally Sex and Gender Information Value Date Recorded Sex Assigned at Not on file 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 Unable to leave message. APPLICATIONS COORDINATOR documented in this encounter Plan of Treatment Not on file documented as of this encounter Visit Diagnoses Not on filedocumented in this encounter Care Teams Occupational Therapy Instructor Relationship Specialty Start Date End Date Fiorella Barcenas MD [address] [place] [address] PCP - General 02/24/17 01/29/18 Fiorella Barcenas MD [address] [place] [address] PCP - General 01/30/18 02/05/18 documented as of this encounter
--- OUTSIDE RECORDS SUMMARY | 2024-11-29 05:19 | XMS_ITS | Encounter Summary ---
Author Organization [facility] Address [address] [place] [address] Care Team Providers Care Postdoctoral Research Associate Name Role Phone Fiorella Barcenas MD Primary Care Provider + Encounter Details Date Type Department Care Team (Late st Contact Info) Description 05/10/2017 Telephone [facility] [address] [facility] [address] [place] [address] Wilian Olea MD [address] [place] [id number] Social History Tobacco Use Types Packs/Day Years Used Date Smoking Tobacco: Former Alcohol Use Standard Drinks/Week Comments Yes 0 (1 standard drink = 0.6 oz pur e alcohol) Sex and Gender Information Value Date Recorded Sex Assigned at Not on file 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 * Telephone Encounter - Wilian Olea MD - 05/10/2017 6:17 PM CDT Continue to monitor BP. If BP continues to rise notify office for medication recommendations. * Telephone Encounter - Azul Noe RN - 05/10/2017 3:23 PM CDT Spoke to pt; States his bp has been getting up in the 150-160's systolic at noc and during the day for the past. Pt states he is currently under a lot of stress as his just had knee replacement and he is playing Mr. Mom ; Pt denies any other symptoms and just wanted to let AD know in case he needed to increase any of his medications. Will forward information on to AD for review and recommend ations. documented in this encounter Plan of Treatment Not on file documented as of this encounter Visit Diagnoses Not on filedocumented in this encounter Care Teams Postdoctoral Research Associate Relationship Specialty Start Date End Date Fiorella Barcenas MD [address] [place] [address] PCP - General 02/24/17 01/29/18 documented as of this encounter
--- OUTSIDE RECORDS SUMMARY | 2024-11-29 05:19 | XMS_ITS | Encounter Summary ---
Author Organization [facility] Facility Care Team Providers Care Painter Bottom Name Role Phone Fiorella Barcenas MD Primary Care Provider + Fiorella Barcenas MD Primary Care Provider + Fiorella Barcenas MD Primary Care Provider + Encounter Details Date Type Department Care Team (Late st Contact Info) Description 12/09/2014 - 11/26/2015 11:59 PM COMMUNITY FACILITATOR Hospital Encounter [facility] Thom Forman MD [id number] [place] [address] Malignant neoplasm of prostate (HCC) Social History Tobacco Use Types Packs/Day Years Used Date Smoking Tobacco: Former Alcohol Use Standard Drinks/Week Comments Yes 0 (1 standard drink = 0.6 oz pur e alcohol) Sex and Gender Information Value Date Recorded Sex Assigned at Not on file Legal Sex Male 3:29 AM COMMUNITY FACILITATOR Gender Identity Not on file Sexual Orientation Not on file documented as of this encounter Medications at Time of Discharge multivitamin tablet tablet take 1 tablet by oral route every day with food 0 0 02/10/2015 omega-3 fatty acids-vitamin E (FISH OIL) 1,000 mg capsule take 1 by Oral route once 0 0 11/02/2015 calcium carbonate-vitami n D3 (CALCIUM 500 + D) 500 mg(1,250mg) -400 unit tablet 0 0 11/02/2015 11/22/2024 cholecalciferol (VITAMIN D3) 2,000 unit tablet take 1 by Oral route every day 0 0 11/02/2015 11/22/2024 clonazePAM (KlonoPIN) 0.5 mg tablet take 1 tablet by oral route every day 0 0 10/27/2014 11/22/2024 coenzyme K63-tyrtzco E (CO Q-10, WITH VIT E,) 100-5 mg-unit capsule 1 tablet by mouth once a day 0 0 10/27/2014 11/22/2024 white petrolatum-nurse examiner al oil (eucerin) cream 0 0 11/02/2015 11/22/2024 aspirin 81 mg tablet take 1 tablet by oral route every day 0 0 10/27/2014 11/22/2019 aspirin-acetamin ophen-caffeine (EXCEDRIN MIGRAINE) 250-250-65 mg per tablet one tablet as needed for migraine 0 0 02/10/2015 11/22/2024 cetyl,stear.alco h-prop gly-sls (cetaphil) cream 0 0 11/02/2015 08/22/2017 folic acid (FOLVITE) 1 mg tablet take 1 tablet by oral route every day 0 0 10/27/2014 08/22/2017 ymgakf-uii-K-Mn- herb#21 (GLUCOSAMINE-MSM COMPLEX) tablet 0 0 11/02/2015 11/22/2024 lisinopril (PRINIVIL,ZESTRI L) 40 mg tablet TAKE 1 TABLET BY ORAL ROUTE EVERY DAY 90 2 11/02/2015 12/07/2017 mesalamine (LIALDA) 1.2 gram EC tablet take 1 tablet by oral route every day with a meal 0 0 02/10/2015 08/22/2017 documented as of this encounter Plan of Treatment Not on file documented as of this encounter Procedures Procedure Name Priority Date/Time Associated Diagnosis Comments DISCHARGE LABORATORY CUMULATIVE REPORT Routine 11/26/2015 12:00 AM COMMUNITY FACILITATOR BLOOD CELL COUNT Routine 12/09/2014 10:3 4 AM COMMUNITY FACILITATOR SERUM TESTOSTERONE, FREE Routine 12/09/2014 10:31 AM COMMUNITY FACILITATOR SERUM LACTATE DEHYDROGENASE (LDH) Routine 12/09/2014 10:31 AM COMMUNITY FACILITATOR PLASMA COMPREHENSIVE METABOLIC PANEL Routine 12/09/2014 10:31 AM COMMUNITY FACILITATOR SERUM PROSTATE-SPECIFIC ANTIGEN (PSA) Routine 12/09/2014 4:31 AM COMMUNITY FACILITATOR documented in this encounter Results * Discharge Laboratory Cumulative Report (11/26/2015 12:00 AM COMMUNITY FACILITATOR) 11/26/2015 Narrative HISTORICAL RESULTS - 12/11/2014 3:39 PM COMMUNITY FACILITATOR ?[facility] ?Department of Laboratories ? [address] [facility] [address] [place] ?[place], [place] [address] Patient Name: ?WANDER FIERRO Med Rec Number: ??[id number] Fin Number: ?[id number] Date: ?1940 Sex/Age: ? Male 74 years Admit Date: ?12/09/2014 Discharge Date: ??11/26/2015 Doctor: ?Thom Bucio Facility: ?[facility] Location: ?[facility] Chart Printed: ?? 12/11/2014 ??15:39 ?* Abnormal ?? C Critical ?? f Footnote ?? ^ Corrected ?? L Low ?? H High ?i Interp Data ?? @ Reference Lab ? Chart Type: Periodic ? CHEMISTRY ? Hormones ?Test: ? Total Testosterone ??Free Testosterone ?Reference: ??[[id number]] ? [9-30] ?Units: ?ng/dL ? ng/dL 12/09/2014 ??10:31:00 ?514 ??f ?11 ??f 12/09/2014 10:31:00 ??Total Testosterone: ADDITIONAL INFORMATION Testing performed by Liquid Chromatography-Tandem Mass Spectrometry (LC-MS/MS). Test Performed by: [place] [address] Supervisor Home Energy Consultant: Omega Tilley M.D. 12/09/2014 10:31:00 ??Free Testosterone: ADDITIONAL INFORMATION Testing performed by [facility]. us Historical Provider LAB BLOOD ORDERABLES Jackie randolph Result HISTORICAL RESULTS * (ABNORMAL) Blood cell count [CBC] panel, 7 CAM (12/09/2014 10:34 AM COMMUNITY FACILITATOR) [facility] RBC 4.58 4.50 - 5.70 M/cumm HISTORICAL RESULTS Hgb 14.1 13.8 - 17.2 g/dl HISTORICAL RESULTS Hct 43.9 40.7 - 50.3 % HISTORICAL RESULTS MCV 95.9 80.0 - 97.6 fl HISTORICAL RESULTS MCH 30.9 26.7 - 33.7 pg HISTORICAL RESULTS MCHC 32.2(L) 32.7 - 35.5 g/dl HISTORICAL RESULTS Rdw 14.1 11.8 - 14.6 % HISTORICAL RESULTS Platelets 189 140 - 440 K/cumm HISTORICAL RESULTS MPV 8.9 6.8 - 10.4 fl HISTORICAL RESULTS Neutrophils 61.2 38.7 - 74.5 % HISTORICAL RESULTS Lymphocytes 23.0 20.0 - 54.3 % HISTORICAL RESULTS Monos 11.6 4.3 - 13.5 % HISTORICAL RESULTS Eosinophils 3.8 0.0 - 6.0 % HISTORICAL RESULTS Basophils 0.4 0.0 - 3.0 % HISTORICAL RESULTS Neutrophils, abs 3.6 1.8 - 6.6 K/cumm HISTORICAL RESULTS Lymphocytes, abs 1.4 1.2 - 3.3 K/cumm HISTORICAL RESULTS Monocytes, absolute 0.7 0.2 - 1.2 K/cumm HISTORICAL RESULTS Eosinophils, abs 0.2 0.0 - 0.5 K/cumm HISTORICAL RESULTS Basophils, abs 0.0 0.0 - 0.2 K/cumm HISTORICAL RESULTS WBC 5.9 3.8 - 9.8 K/cumm HISTORICAL RESULTS Blood specimen (specimen) 12/09/2014 10:34 AM COMMUNITY FACILITATOR Thom Bucio MD LAB BLOOD ORDERABLES Final Resul t HISTORICAL RESULTS * Serum testosterone, free (12/09/2014 10:31 AM COMMUNITY FACILITATOR) [facility] Testosterone 514 240 - 950 ng/dl HISTORICAL RESULTS Comment: ADDITIONAL INFORMATION Testing performed by Liquid Chromatography-Tandem Mass Spectrometry (LC-MS/MS). Test Performed by: [address] [address] Supervisor Home Energy Consultant: Omega Tilley M.D. Testosterone, free 11.0 9.0 - 30.0 ng/dl HISTORICAL RESULTS Comment: ADDITIONAL INFORMATION Testing performed by [facility]. Serum 12/09/2014 10:3 1 AM COMMUNITY FACILITATOR us Thom Bucio MD LAB BLOOD ORDERABLES Final Resul t Performing Organization Address City/[facility] de Phone Number HISTORICAL RESULTS * Plasma comprehensive metabolic panel (12/09/2014 10:31 AM COMMUNITY FACILITATOR) Sodium 141 135 - 145 mmol/L HISTORICAL RESULTS K, pl 4.2 3.3 - 4.9 mmol/L HISTORICAL RESULTS Chloride 103 97 - 110 mmol/L HISTORICAL RESULTS CO2 32 22 - 32 mmol/L HISTORICAL RESULTS A. gap 7 0 - 16 mmol/L HISTORICAL RESULTS Glucose 87 70 - 199 mg/dl HISTORICAL RESULTS BUN 10 8 - 25 mg/dl HISTORICAL RESULTS Creatinine 0.85 0.70 - 1.30 mg/dl HISTORICAL RESULTS Calcium 9.6 8.6 - 10.3 mg/dl HISTORICAL RESULTS Protein, pl 7.1 6.5 - 8.5 g/dl HISTORICAL RESULTS Alb 4.3 3.6 - 5.0 g/dl HISTORICAL RESULTS Bilirubin 0.4 0.3 - 1.1 mg/dl HISTORICAL RESULTS Alk phos 78 38 - 126 Units/L HISTORICAL RESULTS AST 29 11 - 47 Units/L HISTORICAL RESULTS ALT 33 7 - 53 Units/L HISTORICAL RESULTS Plasma 12/09/2014 10:3 1 AM COMMUNITY FACILITATOR us Thom Bucio MD LAB BLOOD ORDERABLES Final Resul t Performing Organization Address [facility] de Phone Number HISTORICAL RESULTS * Serum lactate dehydrogenase (LDH) (12/09/2014 10:31 AM COMMUNITY FACILITATOR) Lactate dehydrogenase (LDH) 205 100 - 250 Units/L HISTORICAL RESULTS Serum 12/09/2014 10:3 1 AM COMMUNITY FACILITATOR us Thom Bucio MD LAB BLOOD ORDERABLES Final Resul t Performing Organization Address City/[facility] de Phone Number HISTORICAL RESULTS * Serum prostate-specific antigen (PSA) (12/09/2014 4:31 AM COMMUNITY FACILITATOR) PSA <0.1 0.0 - 4.0 ng/ml HISTORICAL RESULTS Serum 12/09/2014 4:31 AM COMMUNITY FACILITATOR Narrative HISTORICAL RESULTS - 12/09/2014 5:59 AM COMMUNITY FACILITATOR {Testing performed by: [place] [address]} us Thom Bucio MD LAB BLOOD ORDERABLES Final Resul t HISTORICAL RESULTS documented in this encounter Visit Diagnoses Diagnosis Malignant neoplasm of prostate (HCC) Malignant neoplasm of prostate documented in this encounter Care Teams Painter Bottom Relationship Specialty Start Date End Date Fiorella Barcenas MD [address] [place] [address] PCP - General 02/18/15 02/23/17 Fiorella Barcenas MD [address] [place] [address] PCP - General 02/10/15 02/17/15 Fiorella Barcenas MD [address] [place] [address] PCP - General 10/22/14 02/09/15 documented as of this encounter
--- OUTSIDE RECORDS SUMMARY | 2024-11-29 05:19 | XMS_ITS | Encounter Summary ---
Author Organization [facility] Address [address] [place] [address] Care Team Providers Care Cad Engineer Name Role Phone Fiorella Barcenas MD Primary Care Provider + Reason for Visit * Reason Comments Follow-up 6 month Hypertension Encounter Details Date Type Department Care Team (Late st Contact Info) Description 08/22/2017 1:30 PM CDT Office Visit [facility] [address] [address] Cris Llamas NP [address] [facility] [address] [place] [address] Atrial paroxysmal tachycardia (CMS/HCC) (Primary Dx); Essential hypertension; Sick sinus syndrome (CMS/HCC); Complete atrioventricular block (CMS/HCC); Dyslipidemia; History of cardiac pacemaker in situ Social History Tobacco Use Types Packs/Day Years Used Date Smoking Tobacco: Former Smokeless Tobacco: Never Alcohol Use Standard Drinks/Week Comments Yes 0 (1 standard drink = 0.6 oz pur e alcohol) Sex and Gender Information Value Date Recorded Sex Assigned at Not on file Legal Sex Male 3:29 AM PROMOTIONAL DEMONSTRATOR Gender Identity Not on file Sexual Orientation Not on file documented as of this encounter Last Filed Vital Signs Vital Sign Reading Time Taken Comments Blood Pressure 134/70 08/22/2017 1:58 PM CDT Pulse 60 08/22/2017 1:58 PM CDT Temperature - - Respiratory Rate - - Oxygen Saturation 97% 08/22/2017 1:58 PM CDT Inhaled Oxygen Concentration - - Weight 79.9 kg (176 lb 3.2 oz) 08/22/2017 1:58 P M CDT Height 175.3 cm (5' 9 ) 08/22/2017 1:58 PM CDT Body Mass Index 26.02 08/22/2017 1:58 PM CDT documented in this encounter Progress Notes * Cris Llamas NP - 08/22/2017 1:30 PM CDT Patient ID: Dinesh Saha Chief Complaint: Dinesh Saha is a 77 y.o. male who is an established patient of Dr. Olea. He has a history of Crohn's disease, questionable pericarditis remotely, dyslipidemia, prostate cancer, sick sinus syndrome with AV block and complete heart block s/p [place] [facility] pacemaker placed February [address] Bruno. He last saw Dr. Olea in the office on 02/17/2017. He returns to the office today for routine 6 month follow-up appointment. He has no complaints or concerns. He continues to check his blood pressures frequently every day. SBP ranges 120-140, DBP ranges 70-80. He has ongoing problems with sciatica and is thinking about the seeking a referral with the specialist. He tries to exercise but is limited by his sciatica. He was in [place] for 2 weeks earlier this month, therefore he missed his regularly scheduled remote interrogation for his pacemakeron 08/01/2017. Records Reviewed this visit: 02/17/[address] Olea, 05/05/2017 remote device check report. I have reviewed: allergies, current medications, past family history, past medical history, past social history, past surgical history and problem list Review of Systems Constitution: Negative for diaphoresis, fever, malaise/fatigue, weight gain and weight loss. HENT: Negative for hearing loss. Eyes: Negative for visual disturbance. Vision changes Cardiovascular: Negative for chest pain, claudication, dyspnea on exertion, leg swelling, orthopnea, palpitations, paroxysmal nocturnal dyspnea and syncope. Leg pain when walking Respiratory: Negative for cough, hemoptysis, shortness of breath, snoring and wheezing. Hematologic/Lymphatic: Does not bruise/bleed easily. Skin: Negative for poor wound healing and rash. No easy bruising. No bleeding problems. Musculoskeletal: Negative for joint pain and myalgias. Gastrointestinal: Negative for heartburn, nausea and vomiting. No reflux Genitourinary: Negative for hematuria. Neurological: Negative for dizziness, headaches and light-headedness. Psychiatric/Behavioral: Negative for depression. The patient is not nervous/anxious. Vital Signs: BP 134/70 (BP Location: Left arm, Patient Position: Sitting) Pulse 60 Ht 175.3 cm (5' 9 ) Wt 79.9 kg (176 lb 3.2 oz) SpO2 97% BMI 26.02 kg/m?? Physical Exam Constitutional: He is oriented to person, place, and time. He appears well- developed and well-nourished. No distress. HENT: Head: Normocephalic and atraumatic. Nose: Nose normal. Mouth/Throat: Mucous membranes are normal. Eyes: Conjunctivae and EOM are normal. Pupils are equal, round, and reactive to light. No scleral icterus. Neck: Normal range of motion. No JVD present. No tracheal deviation present. Cardiovascular: Normal rate, regular rhythm and normal heart sounds. No murmur heard. Left chest pacemaker generator site is healed and nontender. Pulmonary/Chest: Effort normal and breath sounds normal. No respiratory distress. Abdominal: Soft. Bowel sounds are normal. There is no tenderness. Musculoskeletal: Normal range of motion. He exhibits no edema. Antalgic gait Neurological: He is alert and oriented to person, place, and time. Skin: Skin is warm and dry. Psychiatric: He has a normal mood and affect. Current Outpatient Prescriptions: ??? acetaminophen (PAIN RELIEVER) 500 mg capsule, take 2 capsule by oral route every 6 hours as needed, Disp: 0, Rfl: 0 ??? amLODIPine (NORVASC) 2.5 mg tablet, TAKE 1 TABLET BY MOUTH EVERY DAY, Disp: 90 tablet, Rfl: 0 ??? aspirin 81 mg tablet, take 1 tablet by oral route every day, Disp: 0, Rfl: 0 ??? yhkoafz-xrkphvzsmlccy-vdzkjmus (EXCEDRIN MIGRAINE) 250-250-65 mg per tablet, one tablet as needed for migraine, Disp: 0, Rfl: 0 ??? atorvastatin (LIPITOR) 20 mg tablet, take 1 tablet by oral route every day, Disp: 0, Rfl: 0 ??? b complex vitamins (B COMPLEX-VITAMIN B12) tablet, Take 5,000 tablets by mouth daily., Disp: , Rfl: ??? biotin 5,000 mcg tablet,disintegrating, 5 mcg., Disp: 0, Rfl: 0 ??? calcium carbonate-vitamin D3 (CALCIUM 500 + D) 500 mg(1,250mg) -400 unit tablet, , Disp: 0, Rfl: 0 ??? cholecalciferol (VITAMIN D3) 2,000 unit tablet, take 1 by Oral route every day, Disp: 0, Rfl: 0 ??? clonazePAM (KlonoPIN) 0.5 mg tablet, take 1 tablet by oral route every day, Disp: 0, Rfl: 0 ??? coenzyme V79-trvkxin E (CO Q-10, WITH VIT E,) 100-5 mg-unit capsule, 1 tablet by mouth once a day, Disp: 0, Rfl: 0 ??? folic acid (FOLVITE) 400 mcg tablet, Take 400 mcg by mouth daily., Disp: , Rfl: ??? zlxfme-nmp-W-Mn-herb#21 (GLUCOSAMINE-MSM COMPLEX) tablet, , Disp: 0, Rfl: 0 ??? hydroCHLOROthiazide (HYDRODIURIL) 25 mg tablet, TAKE 1 TABLET BY MOUTH EVERY DAY (Patient taking differently: Take 1/2 tablet by mouth twice daily), Disp: 90 tablet, Rfl: 0 ??? iron bisgly,ps-FA-B-C#12-succ (IROSPAN 24/6) 65 mg-65 mg -1,000 mcg (24) tablet, , Disp: 0, Rfl: 0 ??? lisinopril (PRINIVIL,ZESTRIL) 40 mg tablet, TAKE 1 TABLET BY ORAL ROUTE EVERY DAY, Disp: 90, Rfl: 2 ??? meclizine (ANTIVERT) 25 mg tablet, take 1 tablet by oral route 3 times every day as needed, Disp: 0, Rfl: 0 ??? melatonin 5 mg tablet, 5 mg., Disp: 0, Rfl: 0 ??? mesalamine (LIALDA) 1.2 gram EC tablet, Take 2.4 g by mouth 2 (two) times a day., Disp: , Rfl: ??? multivitamin tablet tablet, take 1 tablet by oral route every day with food, Disp: 0, Rfl: 0 ??? omega-3 fatty acids-vitamin E (FISH OIL) 1,000 mg capsule, take 1 by Oral route once, Disp: 0, Rfl: 0 ??? ondansetron ODT (ZOFRAN-ODT) 4 mg disintegrating tablet, Take 4 mg by mouth every 8 (eight) hours as needed for nausea or vomiting., Disp: , Rfl: ??? ustekinumab (STELARA) injection, Inject 90 mg under the skin. Inject subq every 8 weeks, Disp: , Rfl: ??? white petrolatum-mineral oil (eucerin) cream, , Disp: 0, Rfl: 0 Assessment: Diagnoses and all orders for this visit: 1. Atrial paroxysmal tachycardia (CMS/HCC) (Primary) 2. Essential hypertension 3. Sick sinus syndrome (CMS/HCC) 4. Complete atrioventricular block (CMS/HCC) 5. History of cardiac pacemaker in situ Plan/Recommendations: Pacemaker appears to be functioning normally. Because he missed his regularly scheduled remote download, I will ask Kelly if he needs to manually trigger a download. I told the patient we would call him and let him know. If he pursues a specialty referral for his sciatica, I told him we can find out if his pacemaker iscompatible with MRI if that imaging is requested. Blood pressure control is adequate with amlodipine 2.5 mg daily and lisinopril 40 mg daily. Lipid panel on 05/11/2017 showed total cholesterol 178, triglycerides 101, LDL 64, HDL 64. Continueatorvastatin 20 mg daily. Return to the office to see Dr. Olea in 6 months. Call us sooner with questions or concerns. documented in this encounter Plan of Treatment Not on file documented as of this encounter Visit Diagnoses Diagnosis Atrial paroxysmal tachycardia (HCC)- Primary Paroxysmal supraventricular tachycardia Essential hypertension Unspecified essential hypertension Sick sinus syndrome (CMS/HCC) (HCC) Sinoatrial node dysfunction Complete atrioventricular block (CMS/HCC) (HCC) Atrioventricular block, complete Dyslipidemia Other and unspecified hyperlipidemia History of cardiac pacemaker in situ documented in this encounter Discontinued Medications Medication Sig Discontinue Reason Start Date End Da te folic acid (FOLVITE) 1 mg tablet take 1 tablet by oral route every day Duplicate order 10/27/2014 08/22/2017 cetyl,stear.alcoh-prop gly-sls (cetaphil) cream Discontinued by another clinician 11/02/2015 08/22/2017 mesalamine (LIALDA) 1.2 gram EC tablet take 1 tablet by oral route every day with a meal Duplicate order 02/10/2015 08/22/2017 documented as of this encounter Historical Medications * This list may reflect changes made after this encounter. folic acid (FOLVITE) 400 mcg tablet Take 1 tablet (400 mcg total) by mouth daily ondansetron ODT (ZOFRAN-ODT) 4 mg disintegrating tablet Take 1 tablet (4 mg total) by mouth every 8 (eight) hours as needed for nausea or vomiting ustekinumab (STELARA) injection Inject 1 mL (90 mg total) under the skin Inject subq every 8 weeks vitamin b complex tablet Take 5,000 tablets by mouth daily 4 mesalamine (LIALDA) 1.2 gram EC tabletIndications:Ul cerative Colitis Take 2.4 g by mouth 2 (two) times a day. 9 added in this encounter Care Teams Cad Engineer Relationship Specialty Start Date End Date Fiorella Barcenas MD [address] [place] [address] PCP - General 02/24/17 01/29/18 documented as of this encounter
--- OUTSIDE RECORDS SUMMARY | 2024-11-29 05:19 | XMS_ITS | Encounter Summary ---
Author Organization [facility] Facility Care Team Providers Care Smoking Pipes Cleaner Name Role Phone Fiorella Barcenas MD Primary Care Provider + Encounter Details Date Type Department Care Team (Latest Contact Info) Description 09/27/2016 12:39 PM CDT - 09/28/2016 6:43 PM CDT Hospital Encounter [facility] Antwon Chavis MD [address] [place] [address] Noninfective gastroenteritis and colitis; Melena; Essential (primary) hypertension; Hyperlipidemia; Sick sinus syndrome (CMS/HCC); Atrioventricular block, complete (CMS/HCC); Crohn's disease without complication (CMS/HCC); Presence of cardiac pacemaker; MCC current use of aspirin; Cigarette nicotine dependence, uncomplicated; Dizziness and giddiness; Acquired absence of other genital organ(s); Personal history of malignant neoplasm of prostate Social History Tobacco Use Types Packs/Day Years Used Date Smoking Tobacco: Former Alcohol Use Standard Drinks/Week Comments Yes 0 (1 standard drink = 0.6 oz pur e alcohol) Sex and Gender Information Value Date Recorded Sex Assigned at Not on file 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 Gender Identity Not on file Sexual Orientation Not on file documented as of this encounter Last Filed Vital Signs Vital Sign Reading Time Taken Comments Blood Pressure 128/63 09/28/2016 2:02 PM CDT Pulse 68 09/28/2016 2:02 PM CDT Temperature - - Respiratory Rate - - Oxygen Saturation - - Inhaled Oxygen Concentration - - Weight 84.9 kg (187 lb 3.2 oz) 09/27/2016 5:47 P M CDT Height 175.3 cm (5' 9.02 ) 09/27/2016 5:47 PM CD T Body Mass Index 27.63 09/27/2016 5:47 PM CDT documented in this encounter Discharge Summaries * Provider, MD Tyler - 09/28/2016 12:00 AM CDT [facility] Patient: WANDER FIERRO Account: [id number] Room No: 635-A : 1940 Admit Date: 09/27/2016 Attending: ANTWON CHAVIS MD Disch. Date: 09/28/2016 Dictating: ANTWON CHAVIS MD Patient Type: SDS DISCHARGE SUMMARY DISCHARGE DIAGNOSES 1. Hematochezia. Patient status post colonoscopy with cauterization of bleeding cecal ulcer and hemostatic clip placement. 2. Hypertension. 3. Hyperlipidemia. 4. History of sick sinus syndrome and complete heart block status post pacemaker placement. 5. Crohn disease. HOSPITAL COURSE A 76-year-old male with history of hypertension and Crohn disease on Lialda, presents with complaints of hematochezia present for last 2 weeks. He underwent a colonoscopy which revealed diffuse pseudopolyps in the proximal ascending colon, proximal transverse colon. The examined portion of the ileum was normal. He had multiple minute ulcers in the cecum. One ulcer was noted to have a pulsating bleed. Clip was placed and was treated with argon plasma coagulation. He was admitted for further monitoring. His hemoglobin and hematocrit stayed stable. He has had no further episodes of hematochezia after colonoscopy. Iron profile showed iron deficiency. He received IV iron. His diet was advanced. He was tolerating amlodipine, hydrochlorothiazide and lisinopril for high blood pressure. He received Solu-Medrol during this hospitalization. Lialda was increased during this hospitalization. Solu-Medrol was discontinued and he was started on prednisone taper. He is discharged to home. CONDITION ON DISCHARGE Fair. MEDICATIONS ON DISCHARGE 1. Prednisone taper. 2. Lialda 4800 g p.o. daily. 3. Coenzyme Q10 one capsule p.o. daily. 4. Multivitamin 1 tablet p.o. daily. 5. Glucosamine/chondroitin 1 tablet p.o. daily. 6. Amlodipine 2.5 mg p.o. daily. 7. Lipitor 20 mg p.o. at bedtime. 8. Hydrochlorothiazide 12.5 mg p.o. b.i.d. 9. Lisinopril 40 mg p.o. daily. 10. Clonazepam 0.25 mg p.o. q. bedtime. Follow up with PCP in 1 week. Follow up with Dr. Bar in 1-2 weeks. Electronically Authenticated by: Antwon Chavis MD On 10/23/2016 11:46 PM MANAGER SPA ANTWON CHAVIS MD RT/[facility] TD: 09/29/2016 07:54 documented in this encounter Medications at Time of Discharge atorvastatin (LIPITOR) 20 mg tablet take 1 tablet by oral route every day 0 0 08/10/2016 multivitamin tablet tablet take 1 tablet by [...] every day 0 0 10/27/2014 11/22/2024 coenzyme H14-[id number] E (CO Q-10, WITH VIT E,) 100-5 mg-unit capsule 1 tablet by mouth once a day 0 0 10/27/2014 11/22/2024 melatonin 5 mg tablet 5 mg. 0 0 05/16/2016 11/24/2024 white petrolatum-type copy examiner al oil (eucerin) cream 0 0 11/02/2015 11/22/2024 amLODIPine (NORVASC) 2.5 mg tablet TAKE 1 TABLET BY ORAL ROUTE EVERY DAY 30 3 06/21/2016 05/08/2017 aspirin 81 mg tablet take 1 tablet by oral route every day 0 0 10/27/2014 11/22/2019 aspirin-acetamin ophen-caffeine (EXCEDRIN MIGRAINE) 250-250-65 mg per tablet one tablet as needed for migraine 0 0 02/10/2015 11/22/2024 cetyl,stear.alco h-prop gly-sls (cetaphil) cream 0 0 11/02/2015 08/22/2017 folic acid (FOLVITE) 1 mg tablet take 1 tablet by oral route every day 0 0 10/27/2014 08/22/2017 [id number]-[id number]-Mn- herb#21 (GLUCOSAMINE-MSM COMPLEX) tablet 0 0 11/02/2015 11/22/2024 hydroCHLOROthiaz dee (HYDRODIURIL) 25 mg tablet take 1 tablet by oral route every day 90 3 05/16/2016 05/11/2017 lisinopril (PRINIVIL,ZESTRI L) 40 mg tablet TAKE 1 TABLET BY ORAL ROUTE EVERY DAY 90 2 11/02/2015 12/07/2017 mesalamine (LIALDA) 1.2 gram EC tablet take 1 tablet by oral route every day with a meal 0 0 02/10/2015 08/22/2017 documented as of this encounter Consult Notes * Provider, MD Tyler - 09/27/2016 12:00 AM CDT [facility] Patient: WANDER FIERRO Account: [id number] Room No: G05-A : 1940 Consult Date: 09/27/2016 Attending: ANTWON CHAVIS MD Admit Date: 09/27/2016 Consult.: EULA MARTIN MD Disch. Date: 09/28/2016 Patient Type: SDS GASTROENTEROLOGY CONSULTATION CONSULTING PHYSICIAN Eula Martin MD REFERRING PHYSICIAN Dakota Bar MD and Antwon Chavis MD I was asked to see this 76-year-old white male for evaluation and treatment of what was thought to be an exacerbation of Crohn's disease. The patient carries a long-standing diagnosis of Crohn's disease, was made sometime in the early s. His Crohn's disease has always involved the large intestine. He has been stable on just oral Lialda at home. A few days ago, he called Dr. Bar saying he has been passing a large amount of bright red blood per rectum. He was seen today 09/27/2016 for a colonoscopy to evaluate the blood per rectum. This was remarkable for many pseudopolyps within the right colon as well as the transverse colon. There are multiple ulcers found in the cecum with pulsating bleeding coming from one ulcer. A hemostatic clip was placed and this was also treated with APC for coagulation. It was decided to admit the patient to the hospital for observation and treatment with Solu-Medrol as well as increasing dose of Lialda for what was thought to be an exacerbation of Crohn's disease. The patient, however, admits that he has been taking large amounts of nonsteroidals. He has had sciatica and he has been taking ibuprofen on a regular basis because of the sciatica. Although he does not take it daily, he says he takes it at least a few times a week and this has been regular. He currently denies any abdominal pain. He has had no diarrhea. He has no specific joint symptoms related to the Crohn's disease. As mentioned above, his Crohn's has been very stable. PAST MEDICAL HISTORY Is pertinent for history of sick sinus syndrome which has required pacemaker placement. He has a history of hypertension, hyperlipidemia, Crohn's disease of the colon and previous complete heart block. He also has a history of prostate cancer and is status post prostatectomy. The surgery revealed 1 positive lymph node. He has been on Lupron since then and is awaiting some type of treatment at [facility]. MEDICATIONS Include: 1. Amlodipine 2.5 mg daily. 2. Aspirin 81 mg daily. 3. Atorvastatin 20 mg daily. 4. Calcium plus vitamin D daily. 5. CoQ 100 mg/5 units daily. 6. Excedrin migraine daily. 7. Fish oil 1000 mg daily. 8. Folic acid 1 mg daily. 9. Glucosamine daily. 10. Hydrochlorothiazide 25 mg daily. 11. Klonopin 0.5 mg daily. 12. Lialda 1.2 g daily. 13. Lisinopril 40 mg daily. 14. Melatonin 5 mg as needed at bedtime. 15. Naprosyn 220 mg daily. 16. Vitamin D daily. SOCIAL HISTORY The patient is . He used to work for the [employer]. He is retired. He used to smoke pipes. ALLERGIES He has no known medication allergies. FAMILY HISTORY There is no family history for inflammatory bowel disease and no significant cardiac family history. REVIEW OF SYSTEMS He currently has no cardiac complaints. He has no pulmonary complaints. He has had no snoring or dyspnea. He has no chest pain, diaphoresis, no orthopnea, no syncope, no PND. Dermatologic: He has no specific complaints. Musculoskeletal: He has been having sciatica recently for which he has been taking nonsteroidals. He has also had complaints of some nonspecific joint complaints. GI: He denies any diarrhea or any change in bowels and constipation. He has had, however, bleeding as noted above. PHYSICAL EXAM Shows the patient to be white male who is alert and oriented. He is seen post colonoscopy in recover in the GI lab. Initially, blood pressure is a little low at 92/60, but blood pressure is now 110/70. Pulse is in the 60s and regular. Sclerae nonicteric. Face is symmetrical. Neck: Supple. No adenopathy. No thyromegaly. Lungs: Clear A and P. Heart: Regular without murmurs, gallops, rubs. Abdomen: Soft. Normal bowel sounds. No masses or tenderness. Extremities: No clubbing, cyanosis, or edema. LABORATORY DATA Pertinent for white count of 5.9, hemoglobin 11.2, hematocrit of 32.9. This is down from CBC in November 2014 when the hemoglobin was 14, hematocrit 43. BMP is normal except for sodium of 135, PT/INR is normal. IMPRESSION Longstanding history of Crohn's disease now with bleeding and a colonoscopy that shows punctate ulcerations in the cecum. Etiology of this is either exacerbation of Crohn's disease with exacerbation because of him taking nonsteroidals. Alternatively, the patient could be bleeding from nonsteroidal induced ulcerations with the Crohn's being stable. It was elected to admit the patient to the hospital for observation and treat this as an exacerbation of Crohn's disease with IV steroids and increasing doses of Lialda. Because of the bleeding, we will notify Dr. Hardwick and have him follow the patient. We will attempt to keep him away from nonsteroidals. Further recommendations depend on the patient's response to current treatment for Crohn's. Thank you for allowing us participate in this patient's care. Electronically Authenticated by: Eula Martin MD On 09/29/2016 02:25 PM CDT EULA MARTIN MD JT/[facility] TD: 09/27/2016 15:41 documented in this encounter Miscellaneous Notes * Admission Note - Provider, MD Tyler - 09/27/2016 12:00 AM CDT [facility] Patient: WANDER FIERRO Room No: 635-A Account: [id number] Service Date: : 1940 Admit Date: 09/27/2016 Attending: ANTWON CHAVIS MD Disch. Date: 09/28/2016 Dictating: ANTWON CHAVIS MD Patient Type: [facility] ADMISSION NOTE CHIEF COMPLAINT Blood per rectum. HISTORY OF PRESENT ILLNESS A 76-year-old male with history of hypertension, dyslipidemia and Crohn's disease presents with complaints of blood per rectum for the last 2 weeks. His hematochezia got worse in the last few days. He denies any abdominal pain. No nausea or vomiting. No melena. No fever or chills. He denies any chest pain. No shortness of breath. He has been taking ibuprofen followed by naproxen for his left sciatica pain. He presented for a colonoscopy for evaluation of hematochezia. The colonoscopy showed multiple 1-2 mm ulcers in the cecum with bleeding from one of the ulcers. He had a hemostatic clip placed and coagulation with argon plasma. He is being admitted for further monitoring. He denies any diarrhea or arthralgias. PAST MEDICAL HISTORY 1. History of sick sinus syndrome and complete heart block status post pacemaker placement. 2. Hypertension. 3. Hyperlipidemia. 4. Crohn's disease. 5. History of prostate cancer status post prostatectomy but he had one positive lymph node and he has been on Lupron since surgery. SOCIAL HISTORY The patient is . He used to work for the [employer]. He is retired. He used to smoke pipes. FAMILY HISTORY Noncontributory. ALLERGIES NKDA. MEDICATIONS ON ADMISSION 1. Amlodipine 2.5 mg p.o. daily. 2. Aspirin 81 mg p.o. daily. 3. Lipitor 20 mg p.o. daily. 4. Calcium plus vitamin D daily. 5. Excedrin as needed which he takes probably 2 or 3 times in the ER. 6. Fish oil 1000 mg p.o. daily. 7. Folic acid 1 mg p.o. daily. 8. Glucosamine daily. 9. Hydrochlorothiazide 12.5 mg in the afternoon and 12.5 mg in the nighttime. 10. Lialda 1.2 g daily. 11. Lisinopril 40 mg p.o. daily. REVIEW OF SYSTEMS Constitutional: Denies any fever or chills. ENT: Sore throat. No dysphagia. Eyes: No diplopia. No change in his vision. Cardiac: Denies any chest pain. No shortness of breath. No paroxysmal nocturnal dyspnea. No orthopnea. Respiratory: Denies any cough. No wheezing. GI: He denies nausea or vomiting. No abdominal pain. Has hematochezia. No melena. : No dysuria. No hematuria. Musculoskeletal: He has sciatica pain. Denies any other arthralgias of the hip or knees. Skin: No rash or pruritus. Psych: No history of depression or anxiety. Neuro: Denies any speech difficulty. No paresthesias of any extremity. No weakness of any extremity. PHYSICAL EXAMINATION Vitals: Blood pressure 137/65, pulse rate 64, respiratory rate 18, temperature 98.1, pulse ox 95% on RA HEENT: Pupils regular. Extraocular movement intact. Oral mucosa appears pink and moist. Neck: Supple. No thyromegaly. No cervical or supraclavicular lymphadenopathy. Lungs: Clear to auscultate. Normal respiratory effort. Heart: Regular, S1 present. S2 present. Abdomen: Soft, no tenderness. No distention. Bowel sounds present. No hepatosplenomegaly appreciated. Extremities: No pretibial edema. No cyanosis. He appears to have some clubbing of his fingers. Pedal pulses 2+ bilaterally. Neuro: Cranial nerves III, IV, : Extraocular to intact. Cranial nerve VII: There is no facial droop. The tongue in midline. Motor power handgrip is 5/5 bilaterally. Thigh flexion and ankle extension is 5/5 bilaterally. Skin: No rashes. Lymph Nodes: No cervical or supraclavicular lymphadenopathy. LABS ON ADMISSION Sodium 134, potassium 3.7, chloride 98, bicarbonate 28, BUN 9, glucose 95, creatinine 0.8, calcium 8.7, WBC 5.9, hemoglobin 11.2, hematocrit 32.9, platelets 242, PT 12.3, INR 1.08. ASSESSMENT AND PLAN 1. Hematochezia status post colonoscopy which revealed 1-2 mm ulcers in the cecum. He had ulcerating bleeding from one of the ulcers which was treated with coagulation and hemostatically clips were also placed. We will continue to monitor hemoglobin and hematocrit. Discussed with automotive production worker Dr. Bar. We will start steroids for possible Crohn's disease. We will continue Lialda for Crohn's disease and has a known LDA. 2. Hypertension. We will continue amlodipine and hydrochlorothiazide and lisinopril. 3. Hyperlipidemia. We will continue Lipitor and check liver function tests. 4. History of sick sinus syndrome and complete heart block status post pacemaker placement. 5. Crohn's disease. We will continue Lialda and start IV Solu-Medrol as recommended by automotive production worker. 6. Deep venous thrombosis prophylaxis with pneumatic compression stockings. ANTICIPATED LENGTH OF STAY 1 midnight. Electronically Authenticated and Edited by: Antwon Chavis MD On 10/23/2016 11:46 PM MANAGER SPA ANTWON CHAVIS MD RT/[facility] TD: 09/27/2016 18:48 documented in this encounter Plan of Treatment Not on file documented as of this encounter Procedures Procedure Name Priority Date/Time Associated Diagnosis Comments PLASMA IRON PROFILE Routine 09/28/2016 6 :54 AM CDT PLASMA FERRITIN Routine 09/28/2016 6:54 AM CDT PLASMA COMPREHENSIVE METABOLIC PANEL Routine 09/28/2016 6:54 AM CDT BLOOD CELL COUNT (CBC), MORPHOLOGIC EXAM Routine 09/28/2016 6:54 AM CDT DISCHARGE LABORATORY CUMULATIVE REPORT 09/28/2016 SERUM FERRITIN Routine 09/27/2016 5:30 PM CDT PLASMA PROTHROMBIN TIME (PT) Routine 09/27/2016 1:54 PM CDT PLASMA IRON PROFILE Routine 09/27/2016 1 :54 PM CDT PLASMA FERRITIN Routine 09/27/2016 1:54 PM CDT PLASMA BASIC METABOLIC PANEL Routine 09/27/2016 1:54 PM CDT BLOOD CELL COUNT (CBC), MORPHOLOGIC EXAM Routine 09/27/2016 1:54 PM CDT COLONOSCOPY REPORT 09/27/2016 SURGICAL PATHOLOGY 09/27/2016 documented in this encounter Results * (ABNORMAL) Blood cell count (CBC), morphologic exam (09/28/2016 6:54 AM CDT) WBC 9.0 3.8 - 9.9 K/cumm CDR HISTORICAL RESULTS RBC 3.80(L) 4.30 - 5.80 M/cumm CDR HISTORICAL RESULTS Hgb 11.3(L) 13.0 - 17.5 g/dl CDR HISTORICAL RESULTS Hct 34.3(L) 38.9 - 50.3 % CDR HISTORICAL RESULTS MCV 90.3 81.3 - 96.4 fl CDR HISTORICAL RESULTS MCH 29.7 27.1 - 33.3 pg CDR HISTORICAL RESULTS MCHC 32.9 32.3 - 35.7 g/dl CDR HISTORICAL RESULTS RDW 46.5 35.7 - 48.2 fl CDR HISTORICAL RESULTS Rdw 14.1 11.1 - 14.1 % CDR HISTORICAL RESULTS Platelets 261 150 - 400 K/cumm CDR HISTORICAL RESULTS MPV 10.0 9.1 - 12.3 fl CDR HISTORICAL RESULTS Neutrophils 87.7(H) 44.0 - 80.0 % CDR HISTORICAL RESULTS Lymphocytes 6.3(L) 13.0 - 44.0 % CDR HISTORICAL RESULTS Monos 5.5 2.0 - 11.0 % CDR HISTORICAL RESULTS Eosinophils 0.0 0.0 - 6.0 % CDR HISTORICAL RESULTS Basophils 0.1 0.0 - 3.0 % CDR HISTORICAL RESULTS Immature granulocytes 0.4 0.0 - 1.0 % CDR HISTORICAL RESULTS NRBC 0.0 0.0 - 0.2 % CDR HISTORICAL RESULTS Neutrophils, abs 7.9(H) 1.7 - 6.5 K/cumm CDR HISTORICAL RESULTS Lymphocytes, abs 0.6(L) 0.8 - 3.3 K/cumm CDR HISTORICAL RESULTS Monocytes, absolute 0.5 0.2 - 0.8 K/cumm CDR HISTORICAL RESULTS Eosinophils, abs 0.0 0.0 - 0.5 K/cumm CDR HISTORICAL RESULTS Basophils, abs 0.0 0.0 - 0.1 K/cumm CDR HISTORICAL RESULTS Immature granulocyte, abs 0.0 0.0 - 0.1 K/cumm CDR HISTORICAL RESULTS NRBC, abs 0.00 0.00 - 0.010 K/cumm CDR HISTORICAL RESULTS Blood specimen (specimen) 09/28/2016 6:54 AM CDT us Antwon Chavis MD LAB BLOOD ORDERABLES Final Res ult CDR HISTORICAL RESULTS * (ABNORMAL) Plasma comprehensive metabolic panel (09/28/2016 6:54 AM CDT) Sodium 137 136 - 146 mmol/L CDR HISTORICAL RESULTS K, pl 3.6 3.3 - 4.9 mmol/L CDR HISTORICAL RESULTS Chloride 104 98 - 108 mmol/L CDR HISTORICAL RESULTS CO2 25 22 - 33 mmol/L CDR HISTORICAL RESULTS BUN 3(L) 7 - 18 mg/dl CDR HISTORICAL RESULTS Glucose 114 70 - 140 mg/dl CDR HISTORICAL RESULTS Comment: Glucose is assumed to be non-fasting. ?? Fasting Glucose normal ranges are: 0 days - 2 months: ? 40 mg/dL - 100 mg/dL 2 months - 999 years: ?70 mg/dL - 99 mg/dL Creatinine 0.74 0.50 - 1.50 mg/dl CDR HISTORICAL RESULTS eGFR >60 ml/min/1.7 3 m2 CDR HISTORICAL RESULTS Comment: GFR Reference Range: = > 60 mL/min/1.73 m2 This result has been calculated assuming the patient is Non-. ??If the patient is , please multiply this result by 1.21. The GFR value is not recommended for medication dose adjustment for renal function, creatinine clearance values should be used. Calcium 8.7 8.5 - 10.5 mg/dl CDR HISTORICAL RESULTS Bilirubin 0.7 0.1 - 1.2 mg/dl CDR HISTORICAL RESULTS Protein, pl 6.0 6.0 - 8.5 g/dl CDR HISTORICAL RESULTS Alb 3.3(L) 3.4 - 5.0 g/dl CDR HISTORICAL RESULTS Alk phos 66 38 - 126 IUnits/L CDR HISTORICAL RESULTS ALT 18 17 - 63 IUnits/L CDR HISTORICAL RESULTS AST 23 15 - 41 IUnits/L CDR HISTORICAL RESULTS Plasma 09/28/2016 6:54 AM CDT us Antwon Chavis MD LAB BLOOD ORDERABLES Final Res ult Performing Organization Address [facility] Co de Phone Number CDR HISTORICAL RESULTS * Plasma ferritin (09/28/2016 6:54 AM CDT) Ferritin 40 24 - 336 ng/ml CDR HISTORICAL RESULTS Plasma 09/28/2016 6:54 AM CDT us Antwon Chavis MD LAB BLOOD ORDERABLES Final Res ult Performing Organization Address City/State/[facility] Co de Phone Number CDR HISTORICAL RESULTS * (ABNORMAL) Plasma iron profile (09/28/2016 6:54 AM CDT) Iron 55 45 - 182 mcg/dl CDR HISTORICAL RESULTS TIBC 402 250 - 450 mcg/dl CDR HISTORICAL RESULTS Transferrin 287 215 - 365 mg/dl CDR HISTORICAL RESULTS Iron saturation 14(L) 20 - 55 % CDR HISTORICAL RESULTS Plasma 09/28/2016 6:54 AM CDT Antwon Chavis MD LAB BLOOD ORDERABLES Final Res ult CDR HISTORICAL RESULTS * DISCHARGE LABORATORY CUMULATIVE REPORT (09/28/2016) Narrative 09/28/2016 Ordered by an unspecified provider. [facility] Provider LAB BLOOD ORDERABLES Jackie l Result * Serum ferritin (09/27/2016 5:30 PM CDT) Ferritin Acceptable CDR HISTO RICAL RESULTS Serum 09/27/2016 5:30 PM CDT Antwon Chavis MD LAB BLOOD ORDERABLES Final Res ult Performing Organization Address [facility] Co de Phone Number CDR HISTORICAL RESULTS * (ABNORMAL) Blood cell count (CBC), morphologic exam (09/27/2016 1:54 PM CDT) WBC 5.9 3.8 - 9.9 K/cumm CDR HISTORICAL RESULTS RBC 3.68(L) 4.30 - 5.80 M/cumm CDR HISTORICAL RESULTS Hgb 11.2(L) 13.0 - 17.5 g/dl CDR HISTORICAL RESULTS Hct 32.9(L) 38.9 - 50.3 % CDR HISTORICAL RESULTS MCV 89.4 81.3 - 96.4 fl CDR HISTORICAL RESULTS MCH 30.4 27.1 - 33.3 pg CDR HISTORICAL RESULTS MCHC 34.0 32.3 - 35.7 g/dl CDR HISTORICAL RESULTS RDW 44.9 35.7 - 48.2 fl CDR HISTORICAL RESULTS Rdw 13.5 11.1 - 14.1 % CDR HISTORICAL RESULTS Platelets 240 150 - 400 K/cumm CDR HISTORICAL RESULTS MPV 9.6 9.1 - 12.3 fl CDR HISTORICAL RESULTS Neutrophils 76.1 44.0 - 80.0 % CDR HISTORICAL RESULTS Lymphocytes 13.7 13.0 - 44.0 % CDR HISTORICAL RESULTS Monos 8.7 2.0 - 11.0 % CDR HISTORICAL RESULTS Eosinophils 0.9 0.0 - 6.0 % CDR HISTORICAL RESULTS Basophils 0.3 0.0 - 3.0 % CDR HISTORICAL RESULTS Immature granulocytes 0.3 0.0 - 1.0 % CDR HISTORICAL RESULTS NRBC 0.0 0.0 - 0.2 % CDR HISTORICAL RESULTS Neutrophils, abs 4.5 1.7 - 6.5 K/cumm CDR HISTORICAL RESULTS Lymphocytes, abs 0.8 0.8 - 3.3 K/cumm CDR HISTORICAL RESULTS Monocytes, absolute 0.5 0.2 - 0.8 K/cumm CDR HISTORICAL RESULTS Eosinophils, abs 0.0 0.0 - 0.5 K/cumm CDR HISTORICAL RESULTS Basophils, abs 0.0 0.0 - 0.1 K/cumm CDR HISTORICAL RESULTS Immature granulocyte, abs 0.0 0.0 - 0.1 K/cumm CDR HISTORICAL RESULTS NRBC, abs 0.00 0.00 - 0.01 K/cumm CDR HISTORICAL RESULTS Blood specimen (specimen) 09/27/2016 1:54 PM CDT Dakota Bar MD LAB BLOOD ORDERABLES Bhavesh ruiz Result CDR HISTORICAL RESULTS * Plasma prothrombin time (PT) (09/27/2016 1:54 PM CDT) Prothrombin time (PT) 12.3 10.0 - 13.0 seconds CDR HISTORICAL RESULTS INR 1.0 0.9 - 1.2 CDR HISTOR ICAL RESULTS Comment: INDICATION: ORTHOPEDIC Total Hip and Knee Arthroplasty 1.8 to 2.6 Hip Fracture 1.8 to 2.6 CARDIOLOGY Atrial Fibrillation 2.0 to 3.0 Cardiomyopathy 2.0 to 3.0 Myocardial Infarction 2.0 to 3.0 Non-three affiliated Valves 2.0 to 3.5 TREATMENT OF VENOUS THRMBOSIS Deep Vein Thrombosis 2.0 to 3.0 Pulmonary Embolism 2.0 to 3.0 Plasma 09/27/2016 1:54 PM CDT Dakota Bar MD LAB BLOOD ORDERABLES Fin al Result Performing Organization Address [facility] de Phone Number CDR HISTORICAL RESULTS * (ABNORMAL) Plasma basic metabolic panel (09/27/2016 1:54 PM CDT) Sodium 135(L) 136 - 146 mmol/L CDR HISTORICAL RESULTS K, pl 3.7 3.3 - 4.9 mmol/L CDR HISTORICAL RESULTS Chloride 98 98 - 108 mmol/L CDR HISTORICAL RESULTS CO2 28 22 - 33 mmol/L CDR HISTORICAL RESULTS BUN 9 7 - 18 mg/dl CDR HISTORICAL RESULTS Glucose 95 70 - 140 mg/dl CDR HISTORICAL RESULTS Comment: Glucose is assumed to be non-fasting. ?? Fasting Glucose normal ranges are: 0 days - 2 months: ? 40 mg/dL - 100 mg/dL 2 months - 999 years: ?70 mg/dL - 99 mg/dL Creatinine 0.88 0.50 - 1.50 mg/dl CDR HISTORICAL RESULTS eGFR >60 ml/min/1.7 3 m2 CDR HISTORICAL RESULTS Comment: GFR Reference Range: = > 60 mL/min/1.73 m2 This result has been calculated assuming the patient is Non-. ??If the patient is , please multiply this result by 1.21. The GFR value is not recommended for medication dose adjustment for renal function, creatinine clearance values should be used. Calcium 8.7 8.5 - 10.5 mg/dl CDR HISTORICAL RESULTS Plasma 09/27/2016 1:54 PM CDT Dakota Bar MD LAB BLOOD ORDERABLES Fin al Result Performing Organization Address [facility] de Phone Number CDR HISTORICAL RESULTS * (ABNORMAL) Plasma ferritin (09/27/2016 1:54 PM CDT) Ferritin 10(L) 24 - 336 ng/ml CDR HISTORICAL RESULTS Plasma 09/27/2016 1:54 PM CDT Dakota Bar MD LAB BLOOD ORDERABLES Fin al Result Performing Organization Address [facility] de Phone Number CDR HISTORICAL RESULTS * (ABNORMAL) Plasma iron profile (09/27/2016 1:54 PM CDT) Iron 353(H) 45 - 182 mcg/dl CDR HISTORICAL RESULTS TIBC 392 250 - 450 mcg/dl CDR HISTORICAL RESULTS Transferrin 280 215 - 365 mg/dl CDR HISTORICAL RESULTS Iron saturation 90(H) 20 - 55 % CDR HISTORICAL RESULTS Plasma 09/27/2016 1:54 PM CDT Dakota Bar MD LAB BLOOD ORDERABLES Fin al Result CDR HISTORICAL RESULTS * Surgical pathology (09/27/2016) Narrative 09/27/2016 Ordered by an unspecified provider. [facility] Provider LAB PATHOLOGY ORDERABLES Final Result * COLONOSCOPY REPORT (09/27/2016) Anatomical Region Laterality Modality Other Narrative 09/27/2016 Ordered by an unspecified provider. 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
--- OUTSIDE RECORDS SUMMARY | 2024-11-29 05:19 | XMS_ITS | Encounter Summary ---
Author Organization [facility] Address [address] [address] Care Team Providers Care Senior Solutions Architect Name Role Phone Fiorella Barcenas MD Primary Care Provider + Reason for Visit * Cardiology (Routine) - Closed Specialty Diagnoses / Procedures Referred By Contac t Referred To Contact Diagnoses SSS (sick sinus syndrome) (CMS/HCC) (HCC) Procedures DEVICE CHECK - REMOTE Wilian Olea MD Phone: tel: fax: Referral ID Status Reason Start Date Expiration Date Visits Re quested Visits Authorized [id number] Closed 05/30/2017 11/26/2017 1 1 Encounter Details Date Type Department Care Team (Latest Contact Info) Description 11/14/2017 7:00 AM INSPECTOR PRECISION Ancillary Procedure [facility] Cardiology [address] [place] [phone] SSS (sick sinus syndrome) (CMS/HCC); History of cardiac pacemaker in situ Social History Tobacco Use Types Packs/Day Years Used Date Smoking Tobacco: Some Days Pipe Smokeless Tobacco: Never Alcohol Use Standard Drinks/Week Comments Yes 2 (1 standard drink = 0.6 oz pur e alcohol) occassionally Sex and Gender Information Value Date Recorded Sex Assigned at Not on file Legal Sex Male 3:29 AM INSPECTOR PRECISION Gender Identity Not on file Sexual Orientation Not on file documented as of this encounter Plan of Treatment Pending Results Name Type Priority Associated Diagnoses Date /Time DEVICE CHECK - REMOTE Cardiac Services Routine SSS (sick sinus syndrome) (CMS/HCC) 11/16/2017 2:32 PM INSPECTOR PRECISION documented as of this encounter Visit Diagnoses Diagnosis SSS (sick sinus syndrome) (CMS/HCC) ([facility]) Sinoatrial node dysfunction History of cardiac pacemaker in situ documented in this encounter Care Teams Senior Solutions Architect Relationship Specialty Start Date End Date Fiorella Barcenas MD [address] [place] [address] PCP - General 02/24/17 01/29/18 documented as of this encounter
--- OUTSIDE RECORDS SUMMARY | 2024-11-29 05:19 | XMS_ITS | Encounter Summary ---
Author Organization [facility] Address [address] [facility] [address] [place] [address] Care Team Providers Care Customer Solutions Teammate Name Role Phone Fiorella Barcenas MD Primary Care Provider + Encounter Details Date Type Department Care Team (Late st Contact Info) Description 06/16/2017 Telephone [facility] [address] [facility] [address] [place] [address] Wilian Olea MD [address] [place] [address] Social History Tobacco Use Types Packs/Day Years Used Date Smoking Tobacco: Former Alcohol Use Standard Drinks/Week Comments Yes 0 (1 standard drink = 0.6 oz pur e alcohol) Sex and Gender Information Value Date Recorded Sex Assigned at Not on file Legal 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 Patient aware. documented in this encounter Plan of Treatment Not on file documented as of this encounter Visit Diagnoses Not on filedocumented in this encounter Care Teams Customer Solutions Teammate Relationship Specialty Start Date End Date Fiorella Barcenas MD [address] [place] [address] PCP - General 02/24/17 01/29/18 documented as of this encounter
--- OUTSIDE RECORDS SUMMARY | 2024-11-29 05:19 | XMS_ITS | Encounter Summary ---
Author Organization [facility] Address [address] [facility] [address] [place] [address] Care Team Providers Care Adjunct English Instructor Name Role Phone Fiorella Barcenas MD Primary Care Provider + Reason for Visit * Cardiology (Routine) - Closed Specialty Diagnoses / Procedures Referred By Contac t Referred To Contact Diagnoses Sick sinus syndrome (CMS/HCC) (HCC) Procedures DEVICE CHECK - REMOTE Wilian Olea MD Phone: tel: fax: Referral ID Status Reason Start Date Expiration Date Visits Re quested Visits Authorized [id number] Closed 04/16/2017 10/13/2017 1 1 Encounter Details Date Type Department Care Team (Latest Contact Info) Description 05/02/2017 8:15 AM CDT Ancillary Procedure [facility] [address] [place] [phone] Sick sinus syndrome (CMS/HCC) Social History Tobacco Use Types Packs/Day Years Used Date Smoking Tobacco: Former Alcohol Use Standard Drinks/Week Comments Yes 0 (1 standard drink = 0.6 oz pur e alcohol) Sex and Gender Information Value Date Recorded Sex Assigned at Not on file Legal 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 s device demonstrates that the pacemaker is functioning appropriately according to the ed teacher's recommendations with appropriate battery voltage, lead impedances, stable atrial and ventricular pacing and sensing thresholds. There were no atrial or ventricular arrhythmias noted. ??Presenting Rhythm-APVP. AP-45%, SERVICES EXECUTIVE->99%. Battery V-3.02V, longevity 10.8-11.0 years to ANGIE. Next scheduled [facility] remote download 08/01/17. ?? Wilian Olea MD CV CARDIAC SERVICES PROC EDURES Final Result documented in this encounter Visit Diagnoses Diagnosis Sick sinus syndrome (CMS/HCC) (HCC) Sinoatrial node dysfunction documented in this encounter Care Teams Adjunct English Instructor Relationship Specialty Start Date End Date Fiorella Barcenas MD [address] [place] [address] PCP - General 02/24/17 01/29/18 documented as of this encounter
--- OUTSIDE RECORDS SUMMARY | 2024-11-29 05:19 | XMS_ITS | Encounter Summary ---
Author Organization [facility] Address [address] [address] Care Team Providers Care Excelsior Machine Feeder Name Role Phone Fiorella Barcenas MD Primary Care Provider + Reason for Visit * Cardiology (Routine) - Closed Specialty Diagnoses / Procedures Referred By Contac t Referred To Contact Diagnoses SSS (sick sinus syndrome) (CMS/HCC) (HCC) Procedures DEVICE CHECK - REMOTE Wilian Olea MD Phone: tel: fax: Referral ID Status Reason Start Date Expiration Date Visits Re quested Visits Authorized [id number] Closed 05/30/2017 11/26/2017 1 1 Encounter Details Date Type Department Care Team (Latest Contact Info) Description 08/15/2017 7:00 AM CDT Ancillary Procedure [facility] Cardiology [address] [place] [phone] SSS (sick sinus syndrome) (CMS/HCC); History of cardiac pacemaker in situ Social History Tobacco Use Types Packs/Day Years Used Date Smoking Tobacco: Former Alcohol Use Standard Drinks/Week Comments Yes 0 (1 standard drink = 0.6 oz pur e alcohol) Sex and Gender Information Value Date Recorded Sex Assigned at Not on file Legal Sex Male 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 EXT JS DEVELOPER Gender Identity Not on file Sexual Orientation Not on file documented as of this encounter Plan of Treatment Pending Results Name Type Priority Associated Diagnoses Date /Time DEVICE CHECK - REMOTE Cardiac Services Routine SSS (sick sinus syndrome) (CMS/HCC) 08/24/2017 9:25 AM CDT documented as of this encounter Visit Diagnoses Diagnosis SSS (sick sinus syndrome) (CMS/HCC) ([facility]) Sinoatrial node dysfunction History of cardiac pacemaker in situ documented in this encounter Care Teams Excelsior Machine Feeder Relationship Specialty Start Date End Date Fiorella Barcenas MD [address] [place] [address] PCP - General 02/24/17 01/29/18 documented as of this encounter
--- OUTSIDE RECORDS SUMMARY | 2024-11-29 05:19 | XMS_ITS | Encounter Summary ---
Author Organization [facility] Address [address] [facility] [address] [place] [address] Care Team Providers Care Sports Coordinator Name Role Phone Fiorella Barcenas MD Primary Care Provider + Encounter Details Date Type Department Care Team (Late st Contact Info) Description 08/23/2017 Telephone [facility] [address] [phone] Cari Huitron, RN Social History Tobacco Use Types Packs/Day Years Used Date Smoking Tobacco: Former Smokeless Tobacco: Never Alcohol Use Standard Drinks/Week Comments Yes 0 (1 standard drink = 0.6 oz pur e alcohol) Sex and Gender Information Value Date Recorded Sex Assigned at Not on file Legal Sex Male 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 Saha was in [place] earlier this month, therefore he missed his scheduled remote download on08/01/2017. I saw him in the office today for routine visit, no problems. Does he need to manually trigger a download? Or would his device have automatically done it when he got back home? I told him Iwould ask you to call him and let him know what to do. His # [phone] Thanks, Cris Tried to contact-unable to leave message d/t VM hasn't been set up. Checked [facility] web site and there are 2 remote transmissions from 08/15/17 & 08/22/17. I will reschedule his remote appt's and process the 08/15/17 remote. documented in this encounter Plan of Treatment Not on file documented as of this encounter Visit Diagnoses Not on filedocumented in this encounter Care Teams Sports Coordinator Relationship Specialty Start Date End Date Fiorella Barcenas MD [address] [place] [address] PCP - General 02/24/17 01/29/18 documented as of this encounter
--- OUTSIDE RECORDS SUMMARY | 2024-11-29 05:19 | XMS_ITS | Encounter Summary ---
Author Organization [facility] Address [address] [facility] [address] [place] [address] Care Team Providers Care Capacitor Repairer Name Role Phone Fiorella Barcenas MD Primary Care Provider + Fiorella Barcenas MD Primary Care Provider + Fiorella Barcenas MD Primary Care Provider + Rodrick Rincon MD Primary Care Provider [phone] Wes Alves MD Primary Care Provider [phone] Encounter Details Date Type Department Care Team (Late st Contact Info) Description 01/25/2017 Orders Only [facility] ProviderTyler MD [address] [place] [address] Social History Tobacco Use Types Packs/Day Years Used Date Smoking Tobacco: Former Alcohol Use Standard Drinks/Week Comments Yes 0 (1 standard drink = 0.6 oz pur e alcohol) Sex and Gender Information Value Date Recorded Sex Assigned at Not on file Legal 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 us Historical Provider [facility] MICHAEL DAUGHERTY Final Result documented in this encounter Visit Diagnoses Not on filedocumented in this encounter Care Teams Capacitor Repairer Relationship Specialty Start Date End Date Fiorella Barcenas MD [address] [place] [address] PCP - General 02/24/17 01/29/18 Fiorella Barcenas MD [address] [place] [address] PCP - General 02/18/15 02/23/17 Fiorella Barcenas MD [address] [place] [address] PCP - General 01/30/18 02/05/18 Rodrick Rincon MD [address] [place] [address] PCP - General Internal Medicine 02/06/18 07/02/24 Wes Alves MD [address] [place] [address] PCP - General Family Practice 07/03/24 documented as of this encounter
--- OUTSIDE RECORDS SUMMARY | 2024-11-29 05:19 | XMS_ITS | Encounter Summary ---
Author Organization [facility] Address [address] [facility] [address] [place] [address] Care Team Providers Care Assistant Food Service Director Name Role Phone Fiorella Barcenas MD Primary Care Provider + Reason for Visit * Reason Comments Pre-op Visit back surgery Encounter Details Date Type Department Care Team (Late st Contact Info) Description 10/09/2017 3:00 PM TRADE UNION SECRETARY Office Visit [facility] [address] [place] [address] Cris Llamas NP [address] [facility] [address] [email or web address] [address] [place] [address] Sick sinus syndrome (CMS/HCC) (Primary Dx); Complete atrioventricular block (CMS/HCC); History of cardiac pacemaker in situ; Preoperative cardiovascular examination Social History Tobacco Use Types Packs/Day Years Used Date Smoking Tobacco: Some Days Pipe Smokeless Tobacco: Never Alcohol Use Standard Drinks/Week Comments Yes 2 (1 standard drink = 0.6 oz pur e alcohol) occassionally Sex and Gender Information Value Date Recorded Sex Assigned at Not on file Legal Sex Male 3:29 AM TRADE UNION SECRETARY Gender Identity Not on file Sexual Orientation Not on file documented as of this encounter Last Filed Vital Signs Vital Sign Reading Time Taken Comments Blood Pressure 124/66 10/09/2017 3:22 PM TRADE UNION SECRETARY Pulse 74 10/09/2017 3:22 PM TRADE UNION SECRETARY Temperature - - Respiratory Rate - - Oxygen Saturation 97% 10/09/2017 3:22 PM TRADE UNION SECRETARY Inhaled Oxygen Concentration - - Weight 79.8 kg (176 lb) 10/09/2017 3:22 PM TRADE UNION SECRETARY Height 175.3 cm (5' 9 ) 10/09/2017 3:22 PM TRADE UNION SECRETARY Body Mass Index 25.99 10/09/2017 3:22 PM TRADE UNION SECRETARY documented in this encounter Progress Notes * Cris Llamas NP - 10/09/2017 3:00 PM CST Patient ID: Dinesh Saha Chief Complaint: Dinesh [...] Dr. Olea in the office on 02/17/2017. I saw him in the office 08/22/17 for routine 6 month appt. No complaints or concerns, home SBP ranges 120-140, DBP ranges 70-80. He talked about ongoing problems with sciatica, seeking specialist referral. He was in [place] for 2 weeks in Jul, and missed his regularly scheduled remote interrogationfor his pacemaker on 08/01/2017. He comes to the office today for preoperative evaluation. He is having back surgery with Dr. Charlene King in early October. He denies chest pain, palpitations, syncope or near syncope. We received a remote download from his [place] and it was reviewed by Felisa Olea on 08/24/2017 showing normal device function. ECG performed in the office today a paced rhythm, ventricular rate 70 b.p.m.. Records Reviewed this visit: 08/22/2017 office note with myself. 08/24/2017 pacemaker interrogation form. 10/22/2014 stress test report. I have reviewed: allergies, current medications, past family history, past medical history, past social history, past surgical history and problem list Review of Systems Constitution: Negative for diaphoresis, fever, malaise/fatigue, weight gain and weight loss. HENT: Negative for hearing loss. Eyes: Negative for visual disturbance. Cardiovascular: Negative for chest pain, claudication, dyspnea on exertion, leg swelling, orthopnea, palpitations, paroxysmal nocturnal dyspnea and syncope. Respiratory: Negative for cough, hemoptysis, shortness of breath, snoring and wheezing. Hematologic/Lymphatic: Does not bruise/bleed easily. Skin: Negative for poor wound healing and rash. No easy bruising. No bleeding problems. Musculoskeletal: Positive for joint pain. Negative for myalgias. Gastrointestinal: Negative for heartburn, nausea and vomiting. No reflux Genitourinary: Negative for hematuria. Neurological: Negative for dizziness, headaches and light-headedness. Psychiatric/Behavioral: Negative for depression. The patient is not nervous/anxious. Vital Signs: BP 124/66 (BP Location: Right arm, Patient Position: Sitting) Pulse 74 Ht 175.3 cm (5' 9 ) Wt79.8 kg (176 lb) SpO2 97% BMI 25.99 kg/m?? Physical Exam Constitutional: He is oriented to person, place, and time. He appears well- developed and well-nourished. No distress. HENT: Head: Normocephalic and atraumatic. Nose: Nose normal. Mouth/Throat: Mucous membranes are normal. Eyes: Conjunctivae and EOM are normal. Pupils are equal, round, and reactive to light. No scleral icterus. Neck: Normal range of motion. No JVD present. No tracheal deviation present. Cardiovascular: Regular rhythm and normal heart sounds. Bradycardia present. No murmur heard. Left chest pacemaker generator site healed Pulmonary/Chest: Effort normal and breath sounds normal. No respiratory distress. Abdominal: Soft. Bowel sounds are normal. There is no tenderness. Musculoskeletal: Normal range of motion. He exhibits no edema. Neurological: He is alert and oriented to person, place, and time. Skin: Skin is warm and dry. Psychiatric: He has a normal mood and affect. Current Outpatient Prescriptions: ??? acetaminophen (PAIN RELIEVER) 500 mg capsule, take 2 capsule by oral route every 6 hours as needed, Disp: 0, Rfl: 0 ??? amLODIPine (NORVASC) 2.5 mg tablet, Take 1 tablet (2.5 mg total) by mouth daily., Disp: 90 tablet, Rfl: 1 ??? aspirin 81 mg tablet, take 1 tablet by oral route every day, Disp: 0, Rfl: 0 ??? atorvastatin (LIPITOR) [...] day, Disp: 0, Rfl: 0 ??? coenzyme N12-ekeyede E (CO Q-10, WITH VIT E,) 100-5 mg-unit capsule, 1 tablet by mouth once a day, Disp: 0, Rfl: 0 ??? folic acid (FOLVITE) 400 mcg tablet, Take 400 mcg by mouth daily., Disp: , Rfl: ??? tdbcvm-onr-A-Mn-herb#21 (GLUCOSAMINE-MSM COMPLEX) tablet, , Disp: 0, Rfl: [...] (eucerin) cream, , Disp: 0, Rfl: 0 ??? kjrvtzg-potvforrskmyf-ynsovjkl (EXCEDRIN MIGRAINE) 250-250-65 mg per tablet, one tablet as needed for migraine, Disp: 0, Rfl: 0 Assessment: Diagnoses and all orders for this visit: 1. Sick sinus syndrome (CMS/HCC) (Primary) 2. Complete atrioventricular block (CMS/HCC) 3. History of cardiac pacemaker in situ 4. Preoperative cardiovascular examination Plan/Recommendations: The patient has a normally functioning pacemaker for history of sick sinus syndrome. He has no history of CAD and had a negative stress test 3 years ago. He exhibits no signs or symptoms concerning for underlying CAD. It is reasonable for him to proceed with spinal surgery at low to intermediate risk. Return to the office to see Dr. Olea as previously planned in 4 months. Call us sooner with questions or concerns. 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 Preoperative cardiovascular examination documented in this encounter Results * ECG 12 lead (10/09/2017) us Cris Llamas NP ECG ORDERABLES Final Res ult documented in this encounter Visit Diagnoses Diagnosis Sick sinus syndrome (CMS/HCC) (HCC)- Primary Sinoatrial node dysfunction 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
--- OUTSIDE RECORDS SUMMARY | 2024-11-29 05:19 | XMS_ITS | Encounter Summary ---
Author Organization [facility] Address [address] [place] [address] Care Team Providers Care Director Radio Name Role Phone Fiorella Barcenas MD Primary Care Provider + Encounter Details Date Type Department Care Team (Late st Contact Info) Description 11/10/2017 Telephone [facility] [address] [place] [address] Wilian Olea MD [address] [place] [address] Social History Tobacco Use Types Packs/Day Years Used Date Smoking Tobacco: Some Days Pipe Smokeless Tobacco: Never Alcohol Use Standard Drinks/Week Comments Yes 2 (1 standard drink = 0.6 oz pur e alcohol) occassionally Sex and Gender Information Value Date Recorded Sex Assigned at Not on file Legal Sex Male 3:29 AM BULB WEEDER Gender Identity Not on file Sexual Orientation Not on file documented as of this encounter Miscellaneous Notes * Telephone Encounter - Flaca Kennedy RN - 11/10/2017 12:35 PM BULB WEEDER I called the patient back and reviewed his concerns. He had surgery about 2 weeks ago to his back (spinal fusion surgery). He states his HR is never < 70 and BP 140-150 systolic. He states he has been trying to minimize pain meds. Advised that his bp and hr are higher probably because of being uncomfortable. Pain can elevate the bp and heart rate. He verbalizes understanding. Follow up appt with the surgeon is Monday. WEEDER documented in this encounter Plan of Treatment Not on file documented as of this encounter Visit Diagnoses Not on filedocumented in this encounter Care Teams Director Radio Relationship Specialty Start Date End Date Fiorella Barcenas MD [address] [place] [address] PCP - General 02/24/17 01/29/18 documented as of this encounter
--- OUTSIDE RECORDS SUMMARY | 2024-11-29 05:19 | XMS_ITS | Encounter Summary ---
Author Organization [facility] Care Team Providers Care Warp Spinner Name Role Phone Fiorella Barcenas MD Primary Care Provider + Encounter Details Date Type Department Care Team (Latest Contact Info) Description 12/06/2016 11:41 AM MANAGER CODING - 12/06/2016 2:25 PM [facility] Hospital Encounter [facility] [place] [address] [place] [address] Crohn's disease of large intestine without complication (CMS/HCC); Ulcer of intestine; Benign neoplasm of transverse colon; Essential (primary) hypertension; Hyperlipidemia; Presence of cardiac pacemaker; Personal history of malignant neoplasm of prostate; 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; Other care home (current) drug therapy; termite technician 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 0 0 05/16/2016 11/24/2024 white petrolatum-mineral engineer al oil (eucerin) cream 0 0 11/02/2015 [...] route every day 0 0 10/27/2014 08/22/2017 iszvhz-uji-M-Mn- herb#21 (GLUCOSAMINE-MSM COMPLEX) tablet 0 0 11/02/2015 [...] Procedure Name Priority Date/Time Associated Diagnosis Comments BLOOD QUANTIFERON GOLD TB Routine 12/06/2016 1:42 PM MANAGER CODING COLONOSCOPY REPORT 12/06/2016 DISCHARGE LABORATORY CUMULATIVE REPORT 12/06/2016 SURGICAL PATHOLOGY 12/06/2016 documented in this encounter Results * Blood quantiferon gold TB (12/06/2016 1:42 PM MANAGER CODING) Pathologist [facility] Quantiferon Gold TB Negative Negative CDR HISTORICAL RESULTS Comment: No interferon-gamma response to M. tuberculosis antigens was detected. Infection with M. tuberculosis is unlikely. A negative result alone does not exclude infection with M. tuberculosis. For detailed information regarding test interpretation see: www.Implisit/test-catalog/ Clinical+and+Interpretive/91171 TB-NIL 0.00 IUnits/ml CDR HISTORICAL RESULTS mitogen-NIL >10.00 IUnits/ml CDR HISTORICAL RESULTS NIL result 0.02 IUnits/ml CDR HISTORICAL RESULTS Comment: Test Performed by: [place] [address] Television Tube Inspector: Axel Cm II, M.D., Ph.D. Blood specimen (specimen) 12/06/2016 1:42 PM MANAGER CODING us Historical Provider MD LAB BLOOD ORDERABLES Jackie l Result CDR HISTORICAL RESULTS * Surgical pathology (12/06/2016) Narrative 12/06/2016 Ordered by an unspecified provider. us Historical Provider LAB PATHOLOGY ORDERABLES Final Result * DISCHARGE LABORATORY CUMULATIVE REPORT (12/06/2016) Narrative 12/06/2016 Ordered by an unspecified provider. us Historical Provider LAB BLOOD ORDERABLES Jackie l Result * COLONOSCOPY REPORT (12/06/2016) Anatomical Region Laterality Modality Other Narrative 12/06/2016 Ordered by an unspecified provider. 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
--- OUTSIDE RECORDS SUMMARY | 2024-11-29 05:19 | XMS_ITS | Encounter Summary ---
Author Organization [facility] Address [address] [place] [address] Care Team Providers Care Human Geography Instructor Name Role Phone Fiorella Barcenas MD Primary Care Provider + Encounter Details Date Type Department Care Team (Late st Contact Info) Description 11/15/2017 Telephone [facility] [address] [place] [address] Wilian Olea MD [address] [place] [address] Social History Tobacco Use Types Packs/Day Years Used Date Smoking Tobacco: Some Days Pipe Smokeless Tobacco: Never Alcohol Use Standard Drinks/Week Comments Yes 2 (1 standard drink = 0.6 oz pur e alcohol) occassionally Sex and Gender Information Value Date Recorded Sex Assigned at Not on file Legal Sex Male 3:29 AM SUPERVISOR SPRING UP Gender Identity Not on file Sexual Orientation Not on file documented as of this encounter Miscellaneous Notes * Telephone Encounter - Cari Huitron RN - 11/15/2017 12:47 PM CST Returned phone call to pt. He stated his heart beat has been running consistently in the 70's. He takes his BP 6 or 7 times a day & is concerned with the heart beat running in the 70's . I reassured him that 70's is normal, I checked [employer] remote web site and his pacemaker function is wnl. Ptstated I guess maybe I need to stop worrying about it . I encouraged him not to worry about the normal heart beat. RVISOR SPRING UP documented in this encounter Plan of Treatment Not on file documented as of this encounter Visit Diagnoses Not on filedocumented in this encounter Care Teams Human Geography Instructor Relationship Specialty Start Date End Date Fiorella Barcenas MD [address] [place] [address] PCP - General 02/24/17 01/29/18 documented as of this encounter
--- OUTSIDE RECORDS SUMMARY | 2024-11-29 05:31 | XMS_ITS | Data Portability ---
Author Organization [place] [facility], Main Office Address [address] [place] [address] Care Team Providers Care State Archivist Name Role Phone VANESA MCCOY Primary Care Provider VANESA MCCOY Referring Provider [phone] Assessment Encounter Date Assessment Date Assessment LastModified by Organization Details LastModified Time 04/11/2023 04/11/2023 Patient presents with back and leg pain. He has had a 3 level fusion already on the lower lumbar spine. 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 On exam he is now only gentleman in mild distress he walks a bit bit forward he has got more pain with extension than flexion neurologically he is intact mildly tender over the sacroiliac area will serve just to the mid back area. There are neurologically appears to be grossly intact. My impression is she has stenosis and degenerative change. His x-rays show fusion from L3 to the sacrum however the 3 levels above showed degenerative changes near gazg-qu-pydd arthritis. I think this should best be treated conservatively will try prednisone taper which he has taken in the past for pain and inflammation. We will also do a course of therapy. Ice it further surgery we would very likely be meddlesone and perhaps dangerous and he is he was is not willing to wrist that at this point. [email or web address] Not available 04/11/2023 15:07:00 05/09/2023 05/09/2023 Patient has a lo w back and hip pain. 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 As far as his back is gone it is tolerable at this point and he has got some benefit from the therapy and pills and would like to leave it alone. He has arthritis in his hips right greater than left even though he has good motion he has got a markedly positive Stinchfield test for which reproduces much of his pain. I told him if the pain persists with next step would be to inject the hip to see if it helped much of the pain is relieved if he gets good relief he can do a hip replacement if not it is mainly from his back discussed. He wants to wait for the present time and continue with exercise and anti-inflammatory medication. [email or web address] Not available 05/09/2023 15:06:56 06/05/2023 06/05/2023 Patient returns hip and back pain. He has pain in both the right and left hips. Her lot of his pain is from his lumbar spine. He has already had a fusion there. He does have arthritis of his hips but moves them fairly well. Told him it is difficult to tell how much of the contribution of his pain is from his hips and how much from his back. We will do a diagnostic injection of the left hip and see if that helps if he gets excellent relief from this seems to alleviate a fair bit of the pain would at that point consider hip replacement surgery however I am not totally convinced that a lot of the pain is not from his back in the. He understands I discussed with the patient his risks benefits limitations and alternatives. [email or web address] Not available 06/05/2023 11:50:36 07/04/2023 07/04/2023 Patient returns status post injections left hip. He does not think this was overly helpful. He has multiple problems including a fusion of his lumbar spine as well as arthritis of his hips. Difficult to tell what is causing him the most problem. It appears to be predominantly from his back as he did get a whole lot of relief from the injection. At this point I am reluctant to do a hip replacement if he does get more relief from the shot. He would like to leave well enough alone and continue with conservative treatment at this point. I have discussed this with him risks benefits limitations and alternatives. We discussed CBD oil I told him I do not prescribe it but he is certainly welcome to try it I told him he could have prednisone again but he says he can sleep with that. He can have injections when he needs in the sacroiliac region. Follow-up on an in a month. [email or web address] Not available 07/04/2023 14:58:02 Plan of Treatment Reminders Order Date Submit Date Provider Last Modified By Organization Details Last Modified Time Details Appointments None recorded. Lab None recorded. Referral physical therapist referral - please contact patient to schedule 2022 023 [facility] [place] [facility] Wilfrido Samuels, [place], [address], 15:40:26 Procedures injection, hip, fluoro guidance (PROC) - Please inject patient in bilateral hip joints with 4 cc of 1% lidocaine and 80 mg of depo medrol 2022 023 [facility], [address], [place], [address], 13:36:23 Surgeries None recorded. Imaging XR, lumbar spine 2022 023 [email or web address] [facility] [place], [address], [place], [address], 15:07:32 Medication Orders prednisone 10 mg tablets in a dose pack 2022 023 [email or web address] [id number], [address] [facility], [place], [id number], 14:58:21 Patient TargetsNo targets recorded. Patient InstructionsNo instructions recorded. Reason for Referral Physical Therapist Referral for Low back pain please contact patient to schedule Referring Physician: Joselito Varela, Orthopedic Surgery, Encounter Date: 04/11/2023 Results Created Date Observation Date Name Description Value Unit Range Abnormal Flag Note LastModifiedBy Organization Detail LastModifiedTime 04/11/20 XR, lumba r spine No observ ation record ed. [email or web address] [facility] [place] [address], [place], [address], 04/11/2023 15:07:32 06/08/20 23 06/08/2023 injec tion, hip, fluor o rosa maria nce (PROC ) No observ ation record ed. [email or web address] [place] [address] [address], [place], [address], 06/08/2023 13:46:44 Result Notes None recorded. Problems Name Problem SNOMED Code Status Onset Date Resolution Date Notes Provider Name and Address Organization Details Recorded Time Disorder of shoulder 001825886 Active Not Available [facility] 3 14:12:07 Disorder of sacrum 79277725 Active Not Available [facility] 3 14:12:07 Acquired trigger finger 5212265 Active Not Available [facility] 3 14:12:07 Spinal stenosis of lumbar region 27210656 Active Not Available [facility] 3 14:12:07 Partial thickness rotator cuff tear 956836894 Active Not Available [facility] 3 14:12:07 Enthesopat hy of hip region 34439288 Active Not Available [facility] 3 14:12:07 Disorder of back 27885902 Active Not Available [facility] 3 14:12:07 Low back pain 634804601 Active 2022 RUBÉN Talley null, [facility] 3 14:17:47 Osteoarthr itis of bilateral hip joints 4617460424217 05 Active 2022 Joselito Varela MD [address] [place] [address], [address] , [facility] 3 15:07:02 Problem Notes None recorded. Procedures Surgical History Date Name Laterality Status Provider Name and Address Organization Details Recorded Time Spinal Fusion completed RUBÉN Talley [facility] 04/11/2023 14:17:10 Imaging Results Imaging Date Name Status LastModified by Organiz ation Details LastModified Time 04/11/2023 XR, lumbar spine completed [email or web address] [facility] [place] [address], [place], [address], 04/11/2023 15:07:32 06/08/2023 injection, hip, fluoro guidance (PROC) completed [address], [place], [address], 06/08/2023 13:46:44 Procedure Notes None recorded. Medical Equipment None Reported. Allergies No known drug allergies Medications Name Sig Start Date Stop Date Status Note LastModified by Organization Details LastModified Time prednisone 10 mg tablet active Not Available Not Available No t Available atorvastatin 20 mg tablet TAKE 1 TABLET BY MOUTH DAILY active Not Available Not Available No t Available trazodone 50 mg tablet TAKE ONE-HALF TABLET BY MOUTH EVERY DAY AT BEDTIME NEEDED FOR INSOMNIA active Not Available Not Available No t Available fluticasone propionate 0.05 % topical cream active Not Available Not Availabl e Not Available clonazepam 0.5 mg tablet TAKE 1 TABLET BY MOUTH EVERY DAY AT BEDTIME NEEDED FOR INSOMNIA active Not Available Not Available No t Available amlodipine 2.5 mg tablet TK 1 T PO QD active Not Available Not Available No t Available tramadol 50 mg tablet active Not Available Not Available No t Available prednisone 10 mg tablets in a dose pack Take 1 tab by mouth, 3 times a day for 3 daysTake 1 tab by mouth 2 times a day for 2 daysTake 1 tab by mouth once a day for 1 day 2022 active Not Available Not Available Not Avai lable oxycodone-pramod taminophen 5 mg-325 mg tablet active Not Available Not Available Not Available meclizine 25 mg tablet TK 1 T PO Q 4 TO 6 H PRN active Not Available Not Available No t Available gabapentin 300 mg capsule active Not Available Not Available Not Available hydrochloroth iazide 25 mg tablet TK 1 T PO QD active Not Available Not Available No t Available lisinopril 40 mg tablet TK 1 T PO QD active Not Available Not Available No t Available ondansetron 4 mg disintegratin g tablet active Not Available Not Available Not Available trimethobenza mide 300 mg capsule TK ONE C PO Q 4 HOURS PRN FOR NAUSEA active Not Available Not Available N ot Available Vigamox 0.5 % eye drops active Not Available Not Available No t Available MoviPrep 100 gram-7.5 gram-2.691 gram oral powder packet active Not Available Not Availabl e Not Available Lialda 1.2 gram tablet,delaye d release TK 4 TS PO QAM active Not Available Not Available No t Available Durezol 0.05 % eye drops active Not Available Not Available Not Available Stelara 90 mg/mL subcutaneous syringe active Not Available Not Available Not Available Prevnar 13 (PF) 0.5 mL intramuscular syringe ADM 0.5ML IM UTD active Not Available Not Available No t Available Ilevro 0.3 % eye drops,suspens ion INT 1 GTT IN OPERATIVE EYE QD STARTING 2 DAYS PRIOR TO SURGERY active Not Available Not Available N ot Available Fluzone High-Dose 9485-9599 (PF) 180 mcg/0.5 mL intramuscular syringe ADM 0.5ML IM UTD active Not Available Not Available No t Available Stelara 130 mg/26 mL intravenous solution active Not Available Not Available Not Available Fluzone High-Dose 1262-7946 (PF) 180 mcg/0.5 mL intramuscular syringe ADM 0.5ML IM UTD active Not Available Not Available No t Available Fluzone High-Dose 9784-9478 (PF) 180 mcg/0.5 mL intramuscular syringe ADM 0.5ML IM UTD active Not Available Not Available No t Available Vitals Date Recorded Body height Body mass index (BMI) Body weight Provider Name and Address Organization Details Last Updated DateTime 04/11/2023 175.26 cm 23.8 kg/m2 68222.37 g Josselyn [facility] 04/11/2023 14:15:52 Date Recorded Body height Body mass index (BMI) Body weight Provider Name and Address Organization Details Last Updated DateTime 05/09/2023 175.26 cm 23.9 kg/m2 39699.96 g Josselyn Romeo [facility] 05/09/2023 14:36:17 Date Recorded Body height Body mass index (BMI) Body weight Provider Name and Address Organization Details Last Updated DateTime 06/05/2023 175.26 cm 23.6 kg/m2 26942.78 g Josselyn Romeo [facility] 06/05/2023 09:23:38 Date Recorded Body height Body mass index (BMI) Body weight Provider Name and Address Organization Details Last Updated DateTime 07/04/2023 175.26 cm 23.6 kg/m2 34777.78 g Josselyn Romeo [facility] 07/04/2023 14:34:21 Social History None recorded. Functional Status None recorded. Mental Status None recorded. Family History Nothing Reported. Medical History No medical history recorded. Past Encounters Encounter ID Performer Location Encounter Start Date Encounter Closed Date Diagnosis/Indication Diagnosis SNOMED-CT Code Diagnosis ICD10 Code [id number] Joselito Varela MD [facility] [place] [address] [place] [address] 04/11/2023 13:57:46 04/11/2023 14:52:11 Low back pain 144217758 M54.50 [id number] Joselito Varela MD [facility] [place] [address] [place] [address] 05/09/2023 14:33:48 05/09/2023 15:58:49 Low back pain 310738853 M54.50 Osteoarthr itis of bilateral hip joints 0807642507 58398 M16.0 [id number] Joselito Varela MD [facility] [place] [address] [place] [address] 06/05/2023 09:21:25 06/05/2023 10:02:13 Low back pain 537001425 M54.50 Osteoarthr itis of bilateral hip joints 2239469917 27780 M16.0 [id number] Joselito Varela MD [facility] [place] [address] [place] [address] 07/04/2023 14:30:40 07/04/2023 15:14:52 Osteoarthritis of bilateral hip joints 7236652743 62412 M16.0 Spinal spike nosis of lumbar region 52767901 M48.061 Health Concerns Section Related Observation LastModified by Organization Detai ls LastModified Time None Recorded Concern Status LastModified by Organization Details LastModified Time None Recorded Advance Directives Directive None Recorded Payers Encounter Date Sequence Insurance Name Policy Number Policy Montoya Covered Member ID Montoya Member ID Guarantor Name 04/11/2023 1 [employer] (MEDICARE REPLACEMENT PPO) [id number] Dinesh Saha [id number] Dinesh Saha 05/09/2023 1 [employer] (MEDICARE REPLACEMENT PPO) [id number] Dinesh Saha [id number] Dinesh Saha 06/05/2023 1 [employer] (MEDICARE REPLACEMENT PPO) [id number] Dinesh Mcneill Yifan [id number] Dinesh Yifan 07/04/2023 1 [employer] (MEDICARE REPLACEMENT PPO) [id number] Dinesh Mcneill Yifan [id number] Dinesh Saha Notes Date Note Type Note Provider Name and Address Organization Details Recorded Time 04/11/2023 text/html L-spineReported bypatient.Location :posterior; deep Quality:aching; throbbing; dull; frequent Severity:moderate Duration:continuou s since onset Timing:chronic Context:lifting; twisting; overuse Alleviating Factors:lying down; position change; ice; rest; elevation Aggravating Factors:walking; bending/squatting; exercise Associated Symptoms:no numbness; no tingling; no swelling; no redness; no ecchymosis; no catching/locking; no popping/clicking; no buckling; no grinding; no instability; no radiation down leg; no drainage; no fever; no chills; no weight loss; no change in bowel/bladder habits;weakness;wa rmth Joselito Varela MD [address], [place], [address], [employer] 04/11/2023 15:08:35 05/09/2023 text/html Patient returns back and hip pain right. 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 Says the pain is little better but not 100%. Joselito Varela MD [address], [place], [address], [employer] 05/09/2023 15:07:43 06/05/2023 text/html Patient returns back and hip pain right. 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 Says the pain is little better but not 100%. Joselito Varela MD [address], [place], [address], [employer] 06/05/2023 11:50:50 07/04/2023 text/html Patient returns back and hip pain right. 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 Says the pain is little better but not 100%. He has not reached his treatment goals. Joselito Varela MD [address] [place] [address] [address], [place], [address], [place] [employer] 07/04/2023 14:59:20
== END 2024-11-22 15:03 | disposition short-term general hospital (02) ==
PROVIDERS: Physician Assistant; Emergency Provider Emergency Medicine; PCP Family Medicine
DX: K92.2 Gastrointestinal hemorrhage, unspecified (principal); I10 Essential (primary) hypertension; E78.5 Hyperlipidemia, unspecified; M19.90 Unspecified osteoarthritis, unspecified site; Z95.0 Presence of cardiac pacemaker; K50.90 Crohn's disease, unspecified, without complications
CPT/HCPCS: 36415; 74177; 80053; 85014; 85018; 85025; 85610; 85730; 86850; 86900; 86901; 96374; 99285; J2270; Q9967

== ENCOUNTER 2025-01-16 11:59 | Emergency (ER) | payer MEDICARE, SELFPAY ==
--- NOTE | ~2025-01-16 | CT_ITS ---
EXAMINATION: CT brain wo con DATE: 01/16/2025 13:40 INDICATION: Fall. TECHNIQUE: Computed tomography (CT) of the head was performed without intravenous contrast. The mA wa s adjusted according to patient size. Iterative reconstruction technique was employed. The dose-lengt h product was 681.00 mGy-cm. COMPARISON: Head CT 09/09/2024 FINDINGS: There are scattered areas of low attenuation in the cerebral white matter. There is no intr acranial hemorrhage, acute infarction, or abnormal intracranial mass lesion. The ventricles are volodymyr l in size. There are likely changes of ocular lens replacement surgeries. There is mucosal thickening in the paranasal sinuses. The mastoid air cells are normal. IMPRESSION: 1. Stable extensive nonspecific cerebral white matter disease, which likely represents chronic small vessel ischemic disease. Reviewed, dictated and finalized at location A. MUTUEL TICKET CHECKER IMPRESSION: 1. Stable extensive nonspecific cerebral white matter disease, which likely rep resents chronic small vessel ischemic disease.
--- NOTE | ~2025-01-16 | XR_ITS ---
EXAMINATION: XR chest 2V DATE: 01/16/2025 13:07 INDICATION: Generalized weakness post fall TECHNIQUE: frontal and lateral views of the chest were obtained. COMPARISON: Chest radiograph dated FINDINGS: Mild streaky opacities at the dependent lung bases and favor atelectasis over pneumonia or pulmonary edema. No pleural effusion or pneumothorax. The cardiomediastinal silhouette is within normal limits for AP technique. Dual lead pacemaker seen with leads projecting over the expected locations of the r ight atrium and right ventricle. Severe thoracic and upper lumbar spondylosis with chronic mild anter ior wedging of a midthoracic vertebral body, likely T8. IMPRESSION: 1. Mild streaky atelectasis at the dependent lung bases. Reviewed, dictated and finalized at location A. OGRAPH DEVELOPER
--- NOTE | ~2025-01-16 | CT_ITS ---
EXAMINATION: CT lumbar spine wo con DATE: 01/16/2025 13:40 INDICATION: Fall. TECHNIQUE: Computed tomography (CT) of the lumbar spine was performed without intravenous contrast. A utomated exposure control and iterative reconstruction technique were employed. The dose-length produ ct was 1159.35 mGy-cm. COMPARISON: Lumbar spine CT 09/09/2024 FINDINGS: The bladder is markedly distended. There is 10 degrees dextroscoliosis of lumbar spine. The re is 3 mm retrolisthesis of L2 on L3 and 7 mm anterolisthesis of L4 on L5 and L5 on S1. There are ch anges of anterior and posterior fusion procedures from L4 to S1 with interbody devices and pedicle sc rews. There is severely decreased disc height at L1-L2, L2-L3, and L3-L4. The following disc levels a re specifically discussed: L1-L2: The disc is bulging. There is severe bilateral facet joint osteoarthritis. There is mild right and moderate left neural foraminal stenosis. There is mild central canal stenosis. L2-L3: The disc is bulging. There is severe right and moderate left facet joint osteoarthritis. There is mild bilateral neural foraminal stenosis. There is mild central canal stenosis. L3-L4: The disc is bulging. There is severe bilateral facet joint osteoarthritis. There is mild bilat eral neural foraminal stenosis. There is mild central canal stenosis. L4-L5: There is mild right facet joint hypertrophy. There is mild bilateral neural foraminal stenosis . There is mild central canal stenosis. There is posterior decompression. L5-S1: There is mild right facet joint hypertrophy. There is no neural foraminal stenosis. There is n o central canal stenosis. There is posterior decompression. IMPRESSION: 1. Severe lumbar spondylosis. 2. Anterior and posterior fusion procedures from L4 to S1. 3. Lumbar dextroscoliosis. Reviewed, dictated and finalized at location A. L FITTER
[2025-01-16 11:56] VITALS: BP 152/71; PULSE 70; RESP 13; TEMP 36.8; O2SAT 99
--- NOTE | 2025-01-16 12:04 | ECG_ITS ---
Test Date: 2025-01-16 12:31:15 Measurements Intervals [place] Rate: 66 P: 37 HI: 256 QRS: -85 QRSD: 193 T: 91 QT: 471 QTc: 497 Interpretive Statements ATRIAL SENSE- ELECTRONIC VENTRICULAR PACEMAKER BASELINE ARTIFACT- I, II, III, AVR, V1-V6 NO FURTHER INTERPRETATION IS POSSIBLE ATYPICAL ECG Compared to ECG 09/10/2024 01:20:50 NO SIGNIFICANT CHANGE Electronically Signed On 01-16-2025 12:48:58 ALUMINUM SIDING INSTALLER by Valentín Kelly D.O.
--- NOTE | 2025-01-16 12:16 | ED.FALL ---
HPI - Fall General Chief Complaint: Fall Stated Complaint: FREQUENT FALLS Time Seen by Provider: 01/16/25 12:06 Source: patient and EMS Mode of arrival: EMS History of Present Illness HPI Narrative: 84 years old white male came from group home by ambulance complaining of lost his balance while sitting on the toilet urinating without straining falling to the floor. Complaining of left lower back pain. Patient had history of chronic lower back pain today is not different than before. Patient denies other injuries. Patient denied loss of consciousness. According to the group home report that patient had 4 on witnessed fall over the last 24 hours and seems confused to them. Currently patient is awake, alert oriented x4. He denies any fever, chills, nausea, vomiting, chest pain, shortness of breath, headache, neck pain. Related Data Home Medications ?Medication ?Instructions ?Recorded ?Confirmed ?Last Taken ?Type biotin 5,000 mcg disintegrating 10,000 mcg PO DAILY 12/17/19 12/10/24 07/24/22 History tablet cyanocobalamin (vitamin B-12) 5,000 mcg PO DAILY 12/17/19 12/10/24 07/24/22 History 5,000 mcg capsule folic acid 400 mcg tablet 0.4 mg PO DAILY 12/17/19 12/10/24 07/24/22 History melatonin 5 mg capsule 5 mg PO HS 12/17/19 12/10/24 07/24/22 History multivitamin 1 tablet PO DAILY 12/17/19 12/10/24 07/24/22 History omega-3 fatty acids 1,000 mg 1,000 mg PO DAILY 12/17/19 12/10/24 07/24/22 History capsule (Fish Oil Concentrate) docusate sodium 100 mg capsule 100 mg PO DAILY PRN Constipation 10/14/22 12/10/24 Unknown History (Colace) ondansetron HCl 4 mg tablet 4 mg PO Q8H PRN Nausea/vomiting 10/14/22 12/10/24 Unknown History trazodone 50 mg tablet 25 mg PO QHS insomnia 05/08/24 12/10/24 Unknown History atorvastatin 20 mg tablet 20 mg PO DAILY 09/10/24 12/10/24 Unknown History flaxseed oil 1,000 mg capsule 1,000 mg PO DAILY 09/10/24 12/10/24 Unknown History vit P-licmlvxv-pakffhuliwo lotion 1 applic topical DAILY PRN Dry Skin 09/10/24 12/10/24 Unknown History (Cetaphil Moisturizing lotion) Allergies Allergy/AdvReac Type Severity Reaction Status Date / Time No Known Drug Allergies Allergy Unknown Unknown Verified 12/10/24 14:18 Review of Systems Review of Systems: All systems reviewed & are unremarkable except as noted in HPI and below PMFSH Past Medical History Medical History Adenomatous colon polyp Spinal stenosis of lumbar region at multiple levels Aortic stenosis Prostate cancer Nasal polyps Crohn's disease without complication Essential hypertension Mixed hyperlipidemia Nicotine dependence, other tobacco product, in remission Osteoarthritis of spine with radiculopathy, lumbar region Sick sinus syndrome (03/05/15) Status post [place] dual chamber permanent pacemaker placement. Surgical History Surgical History History of transurethral resection of prostate History of permanent cardiac pacemaker placement History of spinal fusion History of cataract extraction History of prostatectomy Family History Family History Mother Family history of Alzheimer's disease Father Family history of osteoporosis Malignant neoplasm of prostate Social History Social History Social History: Surrogate medical decision maker: Aliza Yifan, spouse. Code status: Full code. Years smoked: 40 Smoking status: Former smoker Tobacco type: pipe Second hand tobacco smoke exposure: Yes Smoking end date: 12/05/18 Alcohol intake: never Alcohol use details: rarely Substance use: never Substance use type: does not use Do You Feel Safe in your Home?: Yes Lack of Transportation: No Lack of Food: Never True Current Housing: I Have Housing Concerned About Future Housing: No Difficulty Paying Gas/Electric Bills: No Difficulty Paying for Meds: No Currently Unemployed: No Education: Master's Degree or Higher Difficulty w/ Childcare or Family Care: No Living arrangements: with family Additional living arrangements comments: Lives with spouse in [place]. 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 Spiritual care concerns: No Exam Narrative: General appearance: Well-developed, well-nourished Skin: Normal color Head: Normocephalic, nontraumatic Eyes: Clear conjunctiva ENT: Oropharynx normal, ears normal, nose normal Neck: Supple, nontender Chest and respiratory: Airway patent, no respiratory distress, no accessory muscle use Heart: Regular rate/rhythm Abdomen: Soft, nontender, no organomegaly, quiet bowel sounds Vascular: Normal peripheral pulses, normal capillary refill. 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 is normal as tested, no gross motor deficit Course Vital Signs Vital signs: Vital Signs Temperature 36.8 C 01/16/25 11:56 Pulse Rate 70 01/16/25 11:56 Respiratory Rate 13 01/16/25 11:56 Blood Pressure 152/71 H 01/16/25 11:56 Pulse Oximetry 99 01/16/25 11:56 Oxygen Delivery Room Air 01/16/25 11:56 Temperature 36.8 C 01/16/25 11:56 Pulse Rate 70 01/16/25 11:56 Respiratory Rate 13 01/16/25 11:56 Blood Pressure 152/71 H 01/16/25 11:56 Pulse Oximetry 99 01/16/25 11:56 Oxygen Delivery Room Air 01/16/25 11:56 MDM - Fall MDM Narrative Medical decision making narrative: Patient came with falling of the toilet, secondary lost his balance Vital signs are stable Physical examination insignificant Differential diagnosis physically inactive, orthostatic hypotension, electrolyte imbalance, dehydration, viral infection, cardiac arrhythmia Blood workup today includes CBC, CMP, troponin showed insignificant abnormalities Urinalysis showed no sign of infection Respiratory panel positive for influenza A Chest x-ray showed no acute abnormality EKG on arrival showed CT head without contrast showed no acute abnormalities CT lumbar spine showed no acute abnormalities Diagnosis influenza A with general weakness Discharged on Tamiflu. Differential Diagnosis Differential diagnosis: Likely other (As above) Medical Records Attestation: I reviewed the patient's medical records. Lab Data Attestation: I reviewed the patient's lab results. 01/16/25 12:52 01/16/25 12:52 Labs: Lab Results 01/16/25 Range/Units 12:52 WBC 6.9 (4.5-10.0) K/mm3 RBC 4.65 (4.6-6.20) M/mm3 Hgb 14.1 (14.0-18.0) g/dL Hct 43.2 (42.0-52.0) % MCV 92.9 (80-100) fl MCH 30.3 (26-34) pg MCHC 32.6 (32-36) g/dl RDW 13.7 (11.5-14.5) % Plt Count 243 (150-375) k/mm3 MPV 10.3 (7.4-10.4) fl Immature Gran % (Auto) 0.3 (0-0.5) % Neut % (Auto) 77.4 H (45.5-73.1) % Lymph % (Auto) 8.1 L (18.3-44.2) % [place] % (Auto) 13.7 H (2.6-8.5) % Eos % (Auto) 0.4 (0-4.4) % Baso % (Auto) 0.1 L (0.2-1.2) % Lymph # (Auto) 0.56 L (0.9-3.2) K/mm3 [place] # (Auto) 1.0 H (0.1-0.6) K/mm3 Eos # (Auto) 0.0 (0-0.3) K/mm3 Baso # (Auto) 0.0 (0.0-0.1) K/mm3 Abs Immat Gran (auto) 0.02 (0.00-0.031) K/mm3 Absolute Neuts (auto) 5.3 (1.3-6.7) K/mm3 Absolute Nucleated RBC 0.000 (0.0-0.012) K/mm3 Nucleated RBC % 0.0 (0.0-0.2) % PT 12.5 (11.1-14.7) Seconds INR 0.9 APTT 31.3 (22.3-36.8) Seconds Sodium 134 L (137-145) mmol/L Potassium 3.6 (3.4-5.0) mmol/L Chloride 96 L (98-107) mmol/L Carbon Dioxide 26 (22-30) mmol/L Anion Gap 12 (4-12) mmol/L BUN 22 H (9-20) mg/dL Creatinine 0.86 (0.7-1.3) mg/dL Estim Creat Clear Calc 58 ml/min Estimated GFR > 60 (59 - ) Glucose 96 (65-110) mg/dL Lactic Acid 1.2 (0.7-2.0) mmol/L Calcium 9.1 (8.4-10.2) mg/dL Total Bilirubin 0.6 (0.2-1.3) mg/dL AST 76 H (17-59) U/L ALT 36 (6-50) U/L Alkaline Phosphatase 106 (38-126) U/L C-Reactive Protein 1.0 (<1.0) mg/dL Total Protein 8.0 (6.3-8.2) g/dL Albumin 4.7 (3.5-5.1) g/dL Urine Color Yellow (Yellow) Urine Appearance Clear (Clear) Urine pH 5.5 (5.0-9.0) Ur Specific [place] 1.006 (1.001-1.035) Urine Protein Negative (Negative) mg/dL Urine Glucose (UA) Negative (Negative) mg/dL Urine Ketones Negative (Negative) mg/dL Ur Blood (Man) 1+ H (Negative) Urine Nitrate Negative (Negative) Urine Bilirubin Negative (Negative) Urine Urobilinogen 0.2 (<2.0) mg/dL Leukocyte Esterase Rfl Negative (Negative) JOSE/UL Urine RBC 0-2 (0-2) /hpf Urine WBC 0-5 (0-3) /hpf Ur Squamous Epith Cells None seen (Few) /hpf Urine Bacteria None seen /hpf Urine Casts 3-5 Influenza A (RT-PCR) Positive A (Negative) Influenza B (RT-PCR) Negative (Negative) RSV (RT-PCR) Negative (Negative) SARS-CoV-2 RNA (RT-PCR) Negative (Negative) Imaging Data Radiologist's impression: Impressions Chest X-Ray 01/16/25 13:09 IMPRESSION: 1. Mild streaky atelectasis at the dependent lung bases. Head CT 01/16/25 13:42 IMPRESSION: 1. Stable extensive nonspecific cerebral white matter disease, which likely represents chronic small vessel ischemic disease. Lumbar Spine CT 01/16/25 13:44 IMPRESSION: 1. Severe lumbar spondylosis. 2. Anterior and posterior fusion procedures from L4 to S1. 3. Lumbar dextroscoliosis. Critical Care Time Critical Care Time Critical Care Time: No Discharge Plan Discharge Clinical Impression: Influenza A Patient Disposition: [place] Nursing Home/Asst Living Condition: Stable Instructions: Influenza (ED) Additional Instructions: Return if symptoms are worsening , call your family physician for appointment, take Tylenol as as needed for aches and pain, continue home medications. Standing, walking with payroll and benefits assistant Patient Language: German Prescriptions: New oseltamivir [Tamiflu] 75 mg capsule 75 mg PO BID Qty: 10 0RF No Action trazodone 50 mg tablet 25 mg PO QHS polyethylene glycol 3350 [Miralax] 17 gram/dose powder 17 g PO DAILY Qty: 850 0RF folic acid 400 mcg tablet 0.4 mg PO DAILY omega-3 fatty acids [Fish Oil Concentrate] 1,000 mg capsule 1,000 mg PO DAILY multivitamin Tablet 1 tablet PO DAILY biotin 5,000 mcg tablet,disintegrating 10,000 mcg PO DAILY melatonin 5 mg capsule 5 mg PO HS Excedrin Extra Strength 250-250-65 mg tablet 1 tablet PO Q4-6H PRN (Reason: pain) Qty: 1 0RF cyanocobalamin (vitamin B-12) 5,000 mcg capsule 5,000 mcg PO DAILY docusate sodium [Colace] 100 mg capsule 100 mg PO DAILY PRN (Reason: Constipation) ondansetron HCl 4 mg tablet 4 mg PO Q8H PRN (Reason: Nausea/vomiting) acetaminophen [Tylenol Extra Strength] 500 mg tablet 1,000 mg PO TID PRN (Reason: pain) Qty: 30 0RF oxycodone 5 mg tablet 2.5 mg PO Q8H PRN (Reason: pain) Qty: 10 0RF torsemide 10 mg Tablet 10 mg PO QAM Qty: 30 0RF Rx Instructions: HOLD if SBP is <100 sodium chloride 1,000 mg tablet,soluble 500 mg PO BID Qty: 60 0RF flaxseed oil 1,000 mg Capsule 1,000 mg PO DAILY Rx Instructions: administer with a meal Cetaphil Moisturizing Lotion 1 applic TOPICAL DAILY PRN (Reason: Dry Skin) atorvastatin 20 mg tablet 20 mg PO DAILY Follow-up/Referrals: Wes Alves MD [Primary Care Provider] -
--- OUTSIDE RECORDS SUMMARY | 2025-01-16 12:20 | XMS_ITS | Referral Summary ---
Author Organization [facility] Address [address] [place] [phone] Care Team Providers Care Sales Recruitment Specialist Name Role Phone Wes Alves MD Primary Care Provider [phone] Encounters Date Type Department Care Team Description 01/16/2025 Telephone [facility] Medical [facility] Cardiology [address] [place] [phone] Hermann Kimbrough MD 12/18/2024 Telephone [facility] Medical [facility] Gastroenterology at [address] [phone] Merle Gresham MD 12/06/2024 [facility] Post Discharge Follow up phone call [facility] Oncology [address] [place] [phone] Kelli Salinas RN 12/03/2024 [facility] Post Discharge Follow up phone call [facility] Oncology [address] [place] [phone] Kelli Salinas, JO 11/29/2024 [facility] Post Discharge Follow up phone call [facility] Oncology [address] [place] [phone] Kelli Salinas RN 11/29/2024 Orders Only [facility] Medical [facility] Cardiology [address] [place] [phone] Hermann Kimbrough MD Sick sinus syndrome (CMS/HCC) (HCC) (Primary Dx); Pacemaker; Atrial paroxysmal tachycardia (CMS/HCC) (HCC); Complete atrioventricular block (CMS/HCC) (HCC) 11/22/2024 3:52 PM [facility] - 11/24/2024 4:21 PM [facility] Hospital Encounter [facility] Oncology [address] [place] [address] Radu Limon DO Ogunremi, Olumide Omolulu, MD Onaghise, Jude, MD Hematochezia (Primary Dx) Discharge Disposition: Discharge to home or self care 11/22/2024 Ancillary Procedure [facility] Outside Films from Last 3 Months Allergies No known [...] 0 08/10/20 16 Active biotin 5,000 mcg tablet,disintegrat ing 5,000 mcg. 0 0 02/18/20 17 Active [...] DAY AT BEDTIME NEEDED FOR INSOMNIA Active hydroCHLOROthiazid e (HYDRODIURIL) 25 mg tablet Take 1 tablet [...] daily Active polyethylene glycol (MIRALAX) 17 gram packetIndications: constipation Take 1 packet (17 g total) by mouth daily Active phenylephrine 0.25%-mineral oil 14%-petrolatum 74.9% 0.25-14-74.9 % ointmentIndication s:Hemorrhoids,Prur itus Ani,Rectal Pain Insert 1 Application into the rectum 4 (four) times a day as needed (Perianal/recta l irritation or pain) 56 g 11/24/20 24 Active Active Problems Problem Noted Date Diagnosed Date Hematochezia 11/23/2024 GI bleed 11/22/2024 Pacemaker lead malfunction 07/24/2023 Mixed hyperlipidemia 12/17/2021 Systolic murmur 12/17/2021 Pacemaker 02/06/2018 Crohn's disease ([facility]) 02/17/2017 Overview (04/21/2017): Crohn's disease with other complication, unspecified gastrointestinal tract location Atrial paroxysmal tachycardia ([facility]) 02/18/20 17 Overview (04/21/2017): PAT (paroxysmal atrial tachycardia) 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 DOI 03/05/2015 [...] Dyslipidemia 11/02/2015 12/17/2021 Overview (03/02/2017): Dyslipidemia Immunizations Immunization Administration Dates Next Due Influenza, Trivalent, IM [...] on file Legal Sex Male 3:29 AM [facility] Gender Identity Not on file Sexual Orientation Not on file Last Filed Vital Signs Vital Sign Reading Time Taken Comments Blood Pressure 144/60 11/24/2024 7:27 AM [facility] Pulse 65 11/24/2024 7:27 AM [facility] Temperature 36.4 C (97.6 F) 11/24/2024 7:27 AM [facility] Respiratory Rate 18 11/24/2024 7:27 AM [facility] Oxygen Saturation 100% 11/24/2024 7:27 AM [facility] Inhaled Oxygen Concentration - - Weight 75.2 kg (165 lb 12.6 oz) 11/23/2024 6:00 AM [facility] Height 175.3 cm (5' 9 ) 11/22/2024 3:54 PM [facility] Body Mass Index 24.48 11/22/2024 3:54 PM [facility] Plan of Treatment Not on file Medical Devices Implanted Type Area Junior Qa Analyst Device Identifier Shelf Expiration Date Model / Serial / Lot 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 (Quantity not on file) Pacemaker [id number] / [id number] / Procedures Procedure Name Priority Date/Time Associated Diagnosis Comments XR ABDOMEN AP 1 VIEW IP Routine 11/24/2024 8:34 AM [facility] EGFR Routine 11/24/2024 7:21 AM [facility] DIFFERENTIAL AUTO Routine 11/24/2024 7:2 1 AM [facility] FOLATE Routine 11/24/2024 7:21 AM [facility] VITAMIN B12 Routine 11/24/2024 7:21 AM [facility] FERRITIN Routine 11/24/2024 7:21 AM [facility] IRON PROFILE W/ IBC Routine 11/24/2024 7 :21 AM [facility] USTEKINUMAB QUANTITATION WITH ANTIBODIES Routine 11/24/2024 7:21 AM [facility] CRP (ACUTE PHASE) Routine 11/24/2024 7:2 1 AM [facility] PROTIME-INR Routine 11/24/2024 7:21 AM [facility] HEPATIC FUNCTION PANEL Routine 11/24/2024 7:21 AM [facility] BASIC METABOLIC PANEL Routine 11/24/2024 7:21 AM [facility] CBC WITH AUTO DIFFERENTIAL Routine 11/24/2024 7:[address] ABDOMEN PELVIS WO CONTRAST ED Urgent/IP Urgent 11/23/2024 4:07 PM [facility] CALPROTECTIN, FECAL Routine 11/23/2024 3 :18 PM [facility] XR ABDOMEN AP 1 VIEW ED Urgent/IP Urgent 11/23/2024 3:18 PM [facility] XR ABDOMEN AP 1 VIEW ED Urgent/IP Urgent 11/23/2024 12:51 PM [facility] EGFR Routine 11/23/2024 2:55 AM [facility] DIFFERENTIAL AUTO Routine 11/23/2024 2:5 5 AM [facility] BASIC METABOLIC PANEL Routine 11/23/2024 2:55 AM [facility] CBC WITH AUTO DIFFERENTIAL Routine 11/23/2024 2:55 AM [facility] EGFR Routine 11/22/2024 5:41 PM [facility] DIFFERENTIAL AUTO Routine 11/22/2024 5:4 1 PM [facility] BASIC METABOLIC PANEL Routine 11/22/2024 5:41 PM [facility] CBC WITH AUTO DIFFERENTIAL Routine 11/22/2024 5:[address] BODY OUTSIDE REFERENCE Routine 11/22/2024 12:00 AM [facility] from Last 3 Months Results * XR Abdomen 1 View AP (11/24/2024 8:34 AM [facility]) Anatomical Region Laterality Modality Body, Abdomen N/A Computed Radiogr aphy 11/24/2024 9:10 AM [facility] Impressions 11/24/2024 9:10 AM [facility] FINDINGS/IMPRESSION: Enteric tube terminates in the distal stomach/1st portion of the duodenum region. Multiple dilated loops of small bowel suggestive of small bowel obstruction, similar to most recent prior. No acute fracture. Posterior fusion of L4-S1. Electronically signed by: Marko Olson II, D.O. Narrative 11/24/2024 9:10 AM [facility] EXAMINATION: XR ABDOMEN AP 1 VIEW DATE: [...] MD IMG XR PROCEDURES Final Result * Ustekinumab quatitation with antibodies (11/24/2024 7:21 AM [facility]) Ustekinumab level 2.1 mcg/mL [facility] Comment: REFERENCE VALUE Lower limit of quantitation = 0.3 mcg/mL ADDITIONAL INFORMATION This test was developed and its performance characteristics determined by [facility] in a manner consistent with CLIA requirements. This test has not been cleared or approved by the U.S. Food and Drug Administration. Anti-Ustekinumab Ab <10 <10 A Units/mL [facility] Comment: Absence of detectable [id number]. ADDITIONAL INFORMATION This test was developed and its performance characteristics determined by [facility] in a manner consistent with CLIA requirements. This test has not been cleared or approved by the U.S. Food and Drug Administration. Test Performed by: [facility] Laboratories - [facility] [address] [place] [address] Dietitian: Flash Prakash Ph.D.; CLIA# [id number] Blood 11/24/2024 7:21 AM [facility] 11/24/2024 7:48 AM [facility] us Merle Gresham MD LAB BLOOD ORDERABLES Final Result [facility] [address] [address] Department [place] [address] [facility] * eGFR (11/24/2024 7:21 AM [facility]) eGFR 88 >=60 mL/min/1. 73 m2 Comment: Interpretive Data Reference Interval Normal >/= 90 mL/min/1.73m2 Mildly decreased* 60 - 89 mL/min/1.73m2 Mildly to moderately decreased 45 - 59 mL/min/1.73m2 Moderately to severely decreased 30 - 44 mL/min/1.73m2 Severely decreased 15 - 29 mL/min/1.73m2 Kidney Failure < 15 mL/min/1.73m2 *Relative to young adult level Estimated glomerular [...] last reviewed 2021. Blood 11/24/2024 7:21 AM [facility] 11/24/2024 7:51 AM [facility] us Brianne Rachel Khanna NP LAB BLOOD ORDERABLES Final Result [facility] [address] [address] Department [place] [address] * (ABNORMAL) Differential, auto (11/24/2024 7:21 AM [facility]) Neutrophil abs 5.9 1.5 - 6.5 K/cumm Imm gran abs 0.0 0.0 - 0.1 K/cumm [facility] Lymphocyte abs 1.0 0.8 - 3.3 K/cumm [facility] Monocyte abs 1.2(H) 0.2 - 0.8 K/cumm [facility] Eosinophil abs 0.6(H) 0.0 - 0.5 K/cumm [facility] Basophil abs 0.0 0.0 - 0.1 K/cumm [facility] Neutrophil pct 67.4 % [facility] Comment: Interpretive Data Percent cell count reference ranges are not reported, since discordance with absolute values may lead to misinterpretation of CBC data. Current Interpretive Data was last revised on 2018. Imm gran pct 0.3 % [facility] Comment: Interpretive Data Percent cell count reference ranges are not reported, since discordance with absolute values may lead to misinterpretation of CBC data. Current Interpretive Data was last revised on 2018. Lymphocyte pct 11.6 % [facility] Comment: Interpretive Data Percent cell count reference ranges are not reported, since discordance with absolute values may lead to misinterpretation of CBC data. Current Interpretive Data was last revised on 2018. Monocyte pct 13.4 % [facility] Comment: Interpretive Data Percent cell count reference ranges are not reported, since discordance with absolute values may lead to misinterpretation of CBC data. Current Interpretive Data was last revised on 2018. Eosinophil pct 7.0 % [facility] Comment: Interpretive Data Percent cell count reference ranges are not reported, since discordance with absolute values may lead to misinterpretation of CBC data. Current Interpretive Data was last revised on 2018. Basophil pct 0.3 % [facility] Comment: Interpretive Data Percent cell count reference ranges are not reported, since discordance with absolute values may lead to misinterpretation of CBC data. Current Interpretive Data was last revised on 2018. Blood 11/24/2024 7:21 AM [facility] 11/24/2024 7:52 AM [facility] Brianne Khanna NP LAB BLOOD ORDERABLES Final Result Performing Organization Address City/[facility]/ZIP Co de Phone Number [facility] [address] [address] [facility] [place], [place] [phone] * (ABNORMAL) Iron profile w/ IBC (11/24/2024 7:21 AM [facility]) Iron 36(L) 50 - 150 mcg/dl TIBC 288 250 - 400 mcg/dL [facility] Transferrin saturation 13(L) 20 - 50 % [facility] Blood 11/24/2024 7:21 AM [facility] 11/24/2024 7:51 AM [facility] Merle Gresham MD LAB BLOOD ORDERABLES Final Result Performing Organization Address [facility] Co de Phone Number [facility] [address] [address] Department [place] [address] * (ABNORMAL) CBC with auto differential (11/24/2024 7:21 AM [facility]) WBC 8.7 3.8 - 9.9 K/cumm Hgb 13.7 13.0 - 17.5 g/dL [facility] Hct 43.4 38.9 - 50.3 % [facility] Plt 286 150 - 400 K/cumm [facility] MPV 10.0 9.1 - 12.3 fL [facility] RBC 4.51 4.30 - 5.80 M/cumm [facility] MCV 96.2 81.3 - 96.4 fL [facility] MCH 30.4 27.1 - 33.3 pg [facility] MCHC 31.6(L) 32.3 - 35.7 g/dL [facility] RDW CV 13.3 11.1 - 14.9 % [facility] RDW SD 47.3 35.7 - 48.1 fL [facility] NRBC abs 0.00 0.00 - 0.01 K/cumm [facility] Blood 11/24/2024 7:21 AM [facility] 11/24/2024 7:52 AM [facility] Brianne Khanna KITCHEN AIDE LAB BLOOD ORDERABLES Final Result Performing Organization Address [facility] Co de Phone Number [facility] [address] [address] [facility] [place], [place] [phone] * Protime-INR (11/24/2024 7:21 AM [facility]) PT 12.1 9.7 - 13.0 sec INR 1.12 0.90 - 1.20 [facility] Comment: Interpretive data Oral anticoagulant therapeutic ranges: Venous thromboembolism prophylaxis or treatment: 2.0-3.0 CARDIOLOGY Standard range: 2.0-3.0 High-intensity range: 2.5-3.5 Refer to indication-specific guidelines for appropriate target ranges for prosthetic heart valve replacement. Current interpretive data was last revised on 2019. Blood 11/24/2024 7:21 AM [facility] 11/24/2024 7:52 AM [facility] Merle Gresham MD LAB BLOOD ORDERABLES Final Result Performing Organization Address [facility] Co de Phone Number [facility] [address] [address] [place] [address] * (ABNORMAL) CRP (acute phase) (11/24/2024 7:21 AM [facility]) CRP 32.1(H) <=10.0 mg/L Blood 11/24/2024 7:21 AM [facility] 11/24/2024 7:51 AM [facility] Merle Gresham MD LAB BLOOD ORDERABLES Final Result Performing Organization Address [facility] Co de Phone Number [facility] [address] [address] [facility] [place] [address] * Folate (11/24/2024 7:21 AM [facility]) [facility] Folic acid >20.0 >=5.0 ng/mL Comment:Hemolysis present. R esults may be affected. Blood 11/24/2024 7:21 AM [facility] 11/24/2024 7:51 AM [facility] Merle Gresham MD LAB BLOOD ORDERABLES Final Result Performing Organization Address [facility] de Phone Number [facility] [facility] [address] [address] [facility] [place] [address] * Ferritin (11/24/2024 7:21 AM [facility]) [facility] Ferritin 95 30 - 400 ng/mL Blood 11/24/2024 7:21 AM [facility] 11/24/2024 7:51 AM [facility] Merle Gresham MD LAB BLOOD ORDERABLES Final Result Performing Organization Address [facility] de Phone Number [facility] [facility] [address] [address] [facility] [place] [address] * (ABNORMAL) Vitamin B12 (11/24/2024 7:21 AM [facility]) [facility] Vitamin B12 >4,000(H) 230 - 1,250 pg/mL Blood 11/24/2024 7:21 AM [facility] 11/24/2024 7:51 AM [facility] Merle Gresham MD LAB BLOOD ORDERABLES Final Result Performing Organization Address [facility] de Phone Number [facility] [facility] [address] [address] [facility] [place] [address] * Hepatic function panel (11/24/2024 7:21 AM [facility]) [facility] Bilirubin, total 0.4 0.1 - 1.2 mg/dL Bilirubin, direct 0.1 0.1 - 0.3 mg/dL [facility] Protein, pl 6.8 6.5 - 8.5 g/dL [facility] Albumin 3.5 3.5 - 5.0 g/dL [facility] Alk phos 116 40 - 130 Units/L [facility] ALT 22 7 - 55 Units/L [facility] AST 29 10 - 50 Units/L [facility] Blood 11/24/2024 7:21 AM [facility] 11/24/2024 7:51 AM [facility] us Merle Gresham MD LAB BLOOD ORDERABLES Final Result [facility] [address] [address] Department [place] [address] * Basic metabolic panel (11/24/2024 7:21 AM [facility]) Sodium 137 135 - 145 mmol/L Potassium, pl 3.4 3.3 - 4.9 mmol/L [facility] Chloride 101 97 - 110 mmol/L [facility] CO2 24 22 - 32 mmol/L [facility] Anion gap 12 2 - 15 mmol/L [facility] BUN 9 6 - 25 mg/dL [facility] Creatinine 0.80 0.80 - 1.30 mg/dL [facility] Glucose 102 70 - 199 mg/dL [facility] Comment: Interpretive Data Fasting glucose >/= 126 mg/dl is diagnostic for diabetes. Fasting is defined as no caloric intake [...] 2022. Calcium 8.9 8.5 - 10.3 mg/dL [facility] Blood 11/24/2024 7:21 AM [facility] 11/24/2024 7:51 AM [facility] Brianne Khanna NP LAB BLOOD ORDERABLES Final Result [facility] [address] [address] Department [place] [address] * CT Abdomen Pelvis WO Contrast (11/23/2024 4:07 PM [facility]) Anatomical Region Laterality Modality Body N/A Computed Tomogra phy 11/23/2024 4:02 PM [facility] Impressions 11/24/2024 5:49 AM [facility] Circumferential rectal thickening, which can be seen with proctitis. Mild stranding along the descending colon could represent colitis. No evidence of bowel obstruction. Preliminary results were provided by the tele-radiologist at 6:02 PM on 11/23/2024. Electronically signed by: Jose Arevalo M.D. Narrative 11/24/2024 5:49 AM [facility] EXAMINATION: Computed tomography of the abdomen and [...] changes in the spine. Severe hip osteoarthritis. Procedure Note Jose Arevalo MD [...] MD IMG CT PROCEDURES Final Result * (ABNORMAL) Calprotectin, fecal (11/23/2024 3:18 PM [facility]) Calprotectin, fecal 200(H) <50.0 (Normal) mcg/g [facility] Comment: Interpretation: Abnormal (>120 mcg/g) Test Performed by: [place] [address] Dietitian: Flash Prakash Ph.D.; CLIA# [id number] Stool 11/23/2024 3:18 PM [facility] 11/23/2024 3:25 PM [facility] us Merle Gresham MD LAB BODY FLUIDS AND STOOLS ORDERABLES Final Result [facility] [address] [address] Department [place] [address] [facility] * XR Abdomen 1 View AP (11/23/2024 3:18 PM [facility]) Anatomical Region Laterality Modality Body, Abdomen N/A Computed Radiogr aphy 11/23/2024 3:38 PM [facility] Impressions 11/23/2024 3:38 PM [facility] Findings as described above. Electronically signed by: Valentino Soto M.D. Narrative 11/23/2024 3:38 PM [facility] EXAMINATION: XR ABDOMEN AP 1 VIEW HISTORY: The patient is an 84-year-old male who has had placement of a nasogastric tube. Comparison made with the previous study done at 12:41 PM. TECHNIQUE: Portable view of the upper two thirds of the abdomen. FINDINGS: The distal tip of the nasogastric tube is in the antrum of the stomach. Nonspecific bowel gas pattern. Procedure Note Valentino Soto [...] Abdomen 1 View AP (11/23/2024 12:51 PM [facility]) Anatomical Region Laterality Modality Body, Abdomen N/A Computed Radiogr aphy 11/23/2024 1:04 PM [facility] Impressions 11/23/2024 1:04 PM [facility] FINDINGS/IMPRESSION: Multiple dilated loops of small bowel throughout the central abdomen suggestive of small bowel obstruction. Gaseous distention of the colon is also present. Ileus considered in the differential diagnosis. Moderate stool burden. 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 No acute fracture. Electronically signed by: Marko Olson II, D.O. Narrative 11/23/2024 1:04 PM [facility] EXAMINATION: XR ABDOMEN AP 1 VIEW DATE: [...] Final Result * eGFR (11/23/2024 2:55 AM [facility]) eGFR 88 >=60 mL/min/1. 73 m2 Comment: Interpretive Data Reference Interval Normal >/= 90 mL/min/1.73m2 Mildly decreased* 60 - 89 mL/min/1.73m2 Mildly to moderately decreased 45 - 59 mL/min/1.73m2 Moderately to severely decreased 30 - 44 mL/min/1.73m2 Severely decreased 15 - 29 mL/min/1.73m2 Kidney Failure < 15 mL/min/1.73m2 *Relative to young adult level Estimated glomerular filtration rate is determined by the 2020 CKD-EPI equation recommended by the National Kidney Foundation (A Unifying Approach to GFR Estimation: Recommendations of the NKF-ASK Task Force on Reassessing the Inclusion of Race in Diagnosing Kidney Disease, JASN 2021). The CKD-EPI equation should not be used for patients with unstable renal function and has not been validated in children and those over 70. Current interpretive data was last reviewed 2021. Blood 11/23/2024 2:55 AM [facility] 11/23/2024 3:23 AM [facility] us Brianne Ramos Clemencia ORONA LAB BLOOD ORDERABLES Final Result [facility] [address] [address] Department [place] [address] * (ABNORMAL) Differential, auto (11/23/2024 2:55 AM [facility]) Neutrophil abs 7.1(H) 1.5 - 6.5 K/cumm Imm gran abs 0.1 0.0 - 0.1 K/cumm [facility] Lymphocyte abs 1.2 0.8 - 3.3 K/cumm [facility] Monocyte abs 1.2(H) 0.2 - 0.8 K/cumm [facility] Eosinophil abs 0.7(H) 0.0 - 0.5 K/cumm [facility] Basophil abs 0.0 0.0 - 0.1 K/cumm [facility] Neutrophil pct 68.8 % [facility] Comment: Interpretive Data Percent cell count reference ranges are not reported, since discordance with absolute values may lead to misinterpretation of CBC data. Current Interpretive Data was last revised on 2018. Imm gran pct 0.7 % [facility] Comment: Interpretive Data Percent cell count reference ranges are not reported, since discordance with absolute values may lead to misinterpretation of CBC data. Current Interpretive Data was last revised on 2018. Lymphocyte pct 11.4 % [facility] Comment: Interpretive Data Percent cell count reference ranges are not reported, since discordance with absolute values may lead to misinterpretation of CBC data. Current Interpretive Data was last revised on 2018. Monocyte pct 12.0 % [facility] Comment: Interpretive Data Percent cell count reference ranges are not reported, since discordance with absolute values may lead to misinterpretation of CBC data. Current Interpretive Data was last revised on 2018. Eosinophil pct 6.9 % [facility] Comment: Interpretive Data Percent cell count reference ranges are not reported, since discordance with absolute values may lead to misinterpretation of CBC data. Current Interpretive Data was last revised on 2018. Basophil pct 0.2 % [facility] Comment: Interpretive Data Percent cell count reference ranges are not reported, since discordance with absolute values may lead to misinterpretation of CBC data. Current Interpretive Data was last revised on 2018. Blood 11/23/2024 2:55 AM [facility] 11/23/2024 3:23 AM [facility] Brianne Rodriguezneville Khanna NP LAB BLOOD ORDERABLES Final Result Performing Organization Address City/[facility]/ZIP Co de Phone Number [facility] [address] [place] [address] * (ABNORMAL) CBC with auto differential (11/23/2024 2:55 AM [facility]) Pathologist [facility] WBC 10.3(H) 3.8 - 9.9 K/cumm Hgb 12.0(L) 13.0 - 17.5 g/dL [facility] Hct 37.8(L) 38.9 - 50.3 % [facility] Plt 311 150 - 400 K/cumm [facility] MPV 9.8 9.1 - 12.3 fL [facility] RBC 3.98(L) 4.30 - 5.80 M/cumm [facility] MCV 95.0 81.3 - 96.4 fL [facility] MCH 30.2 27.1 - 33.[address] [facility] MCHC 31.7(L) 32.3 - 35.7 g/dL [facility] RDW CV 13.2 11.1 - 14.9 % [facility] RDW SD 46.0 35.7 - 48.1 fL [facility] NRBC abs 0.00 0.00 - 0.01 K/cumm [facility] Blood 11/23/2024 2:55 AM [facility] 11/23/2024 3:23 AM [facility] Brianne Rachel Khanna NP LAB BLOOD ORDERABLES Final Result Performing Organization Address City/[facility]/ZIP Co de Phone Number [facility] [address] Department of [facility] [place], [place] [phone] * Basic metabolic panel (11/23/2024 2:55 AM [facility]) Pathologist [facility] Sodium 139 135 - 145 mmol/L Potassium, pl 3.9 3.3 - 4.9 mmol/L [facility] Chloride 103 97 - 110 mmol/L [facility] CO2 24 22 - 32 mmol/L [facility] Anion gap 12 2 - 15 mmol/L [facility] BUN 14 6 - 25 mg/dL [facility] Creatinine 0.81 0.80 - 1.30 mg/dL [facility] Glucose 95 70 - 199 mg/dL [facility] Comment: Interpretive Data Fasting glucose >/= 126 mg/dl is diagnostic for diabetes. Fasting is defined as no caloric intake [...] 2022. Calcium 8.9 8.5 - 10.3 mg/dL [facility] Blood 11/23/2024 2:55 AM [facility] 11/23/2024 3:23 AM [facility] Brianne Khanna NP LAB BLOOD ORDERABLES Final Result [facility] [id number] Department [place] [address] * eGFR (11/22/2024 5:41 PM [facility]) Pathologist [facility] eGFR >90 >=60 mL/min/1. 73 m2 Comment: Interpretive Data Reference Interval Normal >/= 90 mL/min/1.73m2 Mildly decreased* 60 - 89 mL/min/1.73m2 Mildly to moderately decreased 45 - 59 mL/min/1.73m2 Moderately to severely decreased 30 - 44 mL/min/1.73m2 Severely decreased 15 - 29 mL/min/1.73m2 Kidney Failure < 15 mL/min/1.73m2 *Relative to young adult level Estimated glomerular [...] last reviewed 2021. Blood 11/22/2024 5:41 PM [facility] 11/22/2024 5:50 PM [facility] us Brianne Khanna NP LAB BLOOD ORDERABLES Final Result [facility] [id number] [address] Department [place] [address] * (ABNORMAL) Differential, auto (11/22/2024 5:41 PM [facility]) Neutrophil abs 7.8(H) 1.5 - 6.5 K/cumm Imm gran abs 0.1 0.0 - 0.1 K/cumm [facility] Lymphocyte abs 1.0 0.8 - 3.3 K/cumm [facility] Monocyte abs 1.2(H) 0.2 - 0.8 K/cumm [facility] Eosinophil abs 0.7(H) 0.0 - 0.5 K/cumm [facility] Basophil abs 0.0 0.0 - 0.1 K/cumm [facility] Neutrophil pct 72.0 % [facility] Comment: Interpretive Data Percent cell count reference ranges are not reported, since discordance with absolute values may lead to misinterpretation of CBC data. Current Interpretive Data was last revised on 2018. Imm gran pct 0.6 % [facility] Comment: Interpretive Data Percent cell count reference ranges are not reported, since discordance with absolute values may lead to misinterpretation of CBC data. Current Interpretive Data was last revised on 2018. Lymphocyte pct 9.3 % [facility] Comment: Interpretive Data Percent cell count reference ranges are not reported, since discordance with absolute values may lead to misinterpretation of CBC data. Current Interpretive Data was last revised on 2018. Monocyte pct 10.8 % [facility] Comment: Interpretive Data Percent cell count reference ranges are not reported, since discordance with absolute values may lead to misinterpretation of CBC data. Current Interpretive Data was last revised on 2018. Eosinophil pct 6.9 % [facility] Comment: Interpretive Data Percent cell count reference ranges are not reported, since discordance with absolute values may lead to misinterpretation of CBC data. Current Interpretive Data was last revised on 2018. Basophil pct 0.4 % [facility] Comment: Interpretive Data Percent cell count reference ranges are not reported, since discordance with absolute values may lead to misinterpretation of CBC data. Current Interpretive Data was last revised on 2018. Blood 11/22/2024 5:41 PM [facility] 11/22/2024 5:50 PM [facility] us Brianne Khanna NP LAB BLOOD ORDERABLES Final Result [facility] [id number] [address] Department [place] [address] * (ABNORMAL) CBC with auto differential (11/22/2024 5:41 PM [facility]) WBC 10.8(H) 3.8 - 9.9 K/cumm Hgb 13.2 13.0 - 17.5 g/dL [facility] Hct 41.2 38.9 - 50.3 % [facility] Plt 364 150 - 400 K/cumm [facility] MPV 9.6 9.1 - 12.3 fL [facility] RBC 4.36 4.30 - 5.80 M/cumm [facility] MCV 94.5 81.3 - 96.4 fL [facility] MCH 30.3 27.1 - 33.3 pg [facility] MCHC 32.0(L) 32.3 - 35.7 g/dL [facility] RDW CV 13.2 11.1 - 14.9 % [facility] RDW SD 46.1 35.7 - 48.1 fL [facility] NRBC abs 0.00 0.00 - 0.01 K/cumm [facility] Blood 11/22/2024 5:41 PM [facility] 11/22/2024 5:50 PM [facility] Brianne Khanna NP LAB BLOOD ORDERABLES Final Result [facility] [id number] [address] Department [place] [address] * (ABNORMAL) Basic metabolic panel (11/22/2024 5:41 PM [facility]) Pathologist [facility] Sodium 138 135 - 145 mmol/L Potassium, pl 4.2 3.3 - 4.9 mmol/L [facility] Chloride 101 97 - 110 mmol/L [facility] CO2 23 22 - 32 mmol/L [facility] Anion gap 14 2 - 15 mmol/L [facility] BUN 11 6 - 25 mg/dL [facility] Creatinine 0.71(L) 0.80 - 1.30 mg/dL [facility] Glucose 104 70 - 199 mg/dL [facility] Comment: Interpretive Data Fasting glucose >/= 126 mg/dl is diagnostic for diabetes. Fasting is defined as no caloric intake [...] 2022. Calcium 9.2 8.5 - 10.3 mg/dL [facility] Blood 11/22/2024 5:41 PM [facility] 11/22/2024 5:50 PM [facility] Brianne Khanna NP LAB BLOOD ORDERABLES Final Result [facility] [id number] [address] Department [place] [address] * CT Body Outside Reference (11/22/2024 12:00 AM [facility]) Narrative [facility] - 12/05/2024 2:45 PM [facility] This order has been auto-finalized and does not contain a result. us Not In File Miscellaneous IMG CT PROCEDURES Jackie l Result [facility] from Last 3 Months Insurance MEDICARE [employer]IONS FORMERLY [facility] MEDICARE [facility] MEDICARE [employer] MEDICARE Advance Directives For more information, please contact: [phone] * Full Code (Latest Code Status on File) Date Activated Date Inactivated Comments 11/22/2024 4:29 PM 11/24/2024 8:21 PM Care Teams Sales Recruitment Specialist Relationship Specialty Start Date End Date Wes Alves MD PCP - General Family Practice 07/03/24
--- OUTSIDE RECORDS SUMMARY | 2025-01-16 12:20 | XMS_ITS | Data Portability ---
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 On exam he is [...] 3 levels above showed degenerative changes near [id number] arthritis. I think this should best be [...] and continue with exercise and anti-inflammatory medication. Not available 05/09/2023 15:06:56 06/05/2023 06/05/2023 Patient [...] patient his risks benefits limitations and alternatives. [email or web address] Not available 06/05/2023 11:50:36 07/04/2023 07/04/2023 Patient [...] region. Follow-up on an in a month. [email or web address] Not available 07/04/2023 14:58:02 Plan of Treatment Reminders Order Date Submit Date Provider Last Modified By Organization Details Last Modified Time Details Appointments None recorded. Lab None recorded. Referral physical therapist referral - please contact patient to schedule 2022 023 [facility] [place] [facility] Wilfrido Samuels, [place], [address], 15:40:26 Procedures injection, hip, fluoro guidance (PROC) - Please inject patient in bilateral hip joints with 4 cc of 1% lidocaine and 80 mg of depo medrol 2022 023 [facility], [address], [place], [address], 13:36:23 Surgeries None recorded. Imaging XR, lumbar spine 2022 023 [email or web address] [facility] [place], [address], [place], [address], 15:07:32 Medication Orders prednisone 10 mg tablets in a dose pack 2022 023 [email or web address] [id number], [address] [facility], [place], [id number], 14:58:21 Patient TargetsNo targets recorded. Patient InstructionsNo instructions recorded. Reason for Referral Physical Therapist Referral for Low back pain please contact patient to schedule Referring Physician: Joselito Varela, Orthopedic Surgery, Encounter Date: 04/11/2023 Results Created Date Observation Date Name Description Value Unit Range Abnormal Flag Note LastModifiedBy Organization Detail LastModifiedTime 04/11/20 XR, lumba r spine No observ ation record ed. [email or web address] [facility] [place] [address], [place], [address], 04/11/2023 15:07:32 06/08/20 23 06/08/2023 injec tion, hip, fluor o rosa maria nce (PROC ) No observ ation record ed. [email or web address] [place] [address] [address], [place], [address], 06/08/2023 13:46:44 Result Notes None recorded. Problems Name Problem SNOMED Code Status Onset Date Resolution Date Notes Provider Name and Address Organization Details Recorded Time Disorder of shoulder 604835165 Active Not Available [facility] 3 14:12:07 Disorder of sacrum 54171903 Active Not Available [facility] 3 14:12:07 Acquired trigger finger 4054440 Active Not Available [facility] 3 14:12:07 Spinal stenosis of lumbar region 47433353 Active Not Available [facility] 3 14:12:07 Partial thickness rotator cuff tear 795154446 Active Not Available [facility] 3 14:12:07 Enthesopat hy of hip region 34199328 Active Not Available [facility] 3 14:12:07 Disorder of back 13659641 Active Not Available [facility] 3 14:12:07 Low back pain 497742047 Active 2022 RUBÉN Talley null, [employer] 3 14:17:47 Osteoarthr itis of bilateral hip joints 3234685583269 05 Active 2022 Joselito Varela MD [address] [place] [address], [address] , [employer] 3 15:07:02 Problem Notes None recorded. Procedures Surgical History Date Name Laterality Status Provider Name and Address Organization Details Recorded Time Spinal Fusion completed RUBÉN Talley [employer] 04/11/2023 14:17:10 Imaging Results Imaging Date Name Status LastModified by Organiz ation Details LastModified Time 04/11/2023 XR, lumbar spine completed [email or web address] [facility] [place] [address], [place], [address], 04/11/2023 15:07:32 06/08/2023 injection, hip, fluoro guidance (PROC) completed [address], [place], [address], 06/08/2023 13:46:44 Procedure Notes None recorded. Medical [...] Not Available N ot Available Fluzone High-Dose [id number] (PF) 180 mcg/0.5 mL intramuscular syringe ADM 0.5ML IM UTD active Not Available Not Available No t Available Stelara 130 mg/26 mL intravenous solution active Not Available Not Available Not Available Fluzone High-Dose [id number] (PF) 180 mcg/0.5 mL intramuscular syringe ADM 0.5ML IM UTD active Not Available Not Available No t Available Fluzone High-Dose [id number] (PF) 180 mcg/0.5 mL intramuscular syringe ADM 0.5ML IM UTD active Not Available Not Available No t Available Vitals Date Recorded Body height Body mass index (BMI) Body weight Provider Name and Address Organization Details Last Updated DateTime 04/11/2023 175.26 cm 23.8 kg/m2 24906.37 g [facility] 04/11/2023 14:15:52 Date Recorded Body height Body mass index (BMI) Body weight Provider Name and Address Organization Details Last Updated DateTime 05/09/2023 175.26 cm 23.9 kg/m2 18029.96 g Josselyn Romeo [employer] 05/09/2023 14:36:17 Date Recorded Body height Body mass index (BMI) Body weight Provider Name and Address Organization Details Last Updated DateTime 06/05/2023 175.26 cm 23.6 kg/m2 65518.78 g Josselyn Romeo [employer] 06/05/2023 09:23:38 Date Recorded Body height Body mass index (BMI) Body weight Provider Name and Address Organization Details Last Updated DateTime 07/04/2023 175.26 cm 23.6 kg/m2 90733.78 g Josselyn Romeo [employer] 07/04/2023 14:34:21 Social History None recorded. Functional Status None recorded. Mental Status None recorded. Family History Nothing Reported. Medical History No medical history recorded. Past Encounters Encounter ID Performer Location Encounter Start Date Encounter Closed Date Diagnosis/Indication Diagnosis SNOMED-CT Code Diagnosis ICD10 Code Diagnosis Note [id number] Joselito Varela MD [facility] [place] [address] [place] [address] 04/11/2023 13:57:46 04/11/2023 14:52:11 Low back pain 613397053 M54.50 [id number] Joselito Varela MD [facility] [place] [address] [place] [address] 05/09/2023 14:33:48 05/09/2023 15:58:49 Low back pain 327208734 M54.50 Osteoarthr itis of bilateral hip joints 8393426426 94190 M16.0 [id number] Joselito Varela MD [facility] [place] [address] [place] [address] 06/05/2023 09:21:25 06/05/2023 10:02:13 Low back pain 829254142 M54.50 Osteoarthr itis of bilateral hip joints 1541845860 49916 M16.0 [id number] Joselito Varela MD [facility] [place] [address] [place] [address] 07/04/2023 14:30:40 07/04/2023 15:14:52 Osteoarthritis of bilateral hip joints 0573580011 62594 M16.0 Spinal spike nosis of lumbar region 19453350 M48.061 Health Concerns Section Related Observation LastModified by Organization Detai ls LastModified Time None Recorded Concern Status LastModified by Organization Details LastModified Time None Recorded Advance Directives Directive None Recorded Payers Encounter Date Sequence Insurance Name Policy Number Policy Montoya Covered Member ID Montoya Member ID Guarantor Name 04/11/2023 1 [employer] (MEDICARE REPLACEMENT PPO) [id number] Dinesh Saha [id number] Dinesh Saha 05/09/2023 1 [employer] (MEDICARE REPLACEMENT PPO) [id number] Dinesh Saha [id number] Dinesh Yifan 06/05/2023 1 [employer] (MEDICARE REPLACEMENT PPO) [id number] 1 Diensh Jonesncer [id number] Dinesh Yifan 07/04/2023 1 [employer] (MEDICARE REPLACEMENT PPO) [id number] Dinesh Jonesncer [id number] Dinesh Yfian Notes Date Note Type Note Provider Name [...] weight loss; no change in bowel/bladder habits;weakness;wa th Joselito Varela MD [address] [facility], [place], [address], [employer] 04/11/2023 15:08:35 05/09/2023 text/html Patient returns back and hip pain right. 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 Says the pain is little better but not 100%. Joselito Varela MD [address], [place], [address], [employer] 05/09/2023 15:07:43 06/05/2023 text/html Patient returns back and hip pain right. 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 Says the pain is little better but not 100%. Joselito Varela MD [address], [place], [address], [employer] 06/05/2023 11:50:50 07/04/2023 text/html Patient returns back and hip pain right. 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 Says the pain is little better but not 100%. He has not reached his treatment goals. Joselito Varela MD [address] [place] [address], [place], [address], [place] [facility] 07/04/2023 14:59:20
--- OUTSIDE RECORDS SUMMARY | 2025-01-16 12:21 | XMS_ITS | Clinical Summary ---
Author Organization [facility] Address [address] [place] [address] Care Team Providers Care Quiller Machine Fixer Name Role Phone Wes Alves MD Primary Care Provider [phone] Allergies No known active allergies Medications multivitamin [...] Systolic murmur 12/17/2021 Pacemaker 02/06/2018 Crohn's disease (CMS/HCC) 02/17/2017 Overview (04/21/2017): Crohn's disease with other complication, unspecified gastrointestinal tract location Atrial paroxysmal tachycardia ([facility]) 02/18/20 17 Overview (04/21/2017): PAT (paroxysmal atrial tachycardia) 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 Overview (03/02/2017): Complete heart block History of malignant neoplasm of prostate 2015 Overview (03/02/2017): H/O prostate cancer Crohn's disease in remission ([facility]/HCC) 6 Overview (03/02/2017): Crohn's disease in remission [...] Type Department Care Team Description 01/16/2025 Telephone [facility] Cardiology [address] [facility] [address], [place] [phone] Hermann Kimbrough MD 12/18/2024 Telephone [facility] Gastroenterology at [address], [place] [address] Merle Gresham MD 12/06/2024 [facility] Post Discharge Follow up phone call [facility] [address] [place] [phone] Kelli Salinas RN 12/03/2024 [facility] Post Discharge Follow up phone call [facility] [address] [place] [phone] Kelli Salinas RN 11/29/2024 [facility] Post Discharge Follow up phone call [facility] [address] [place] [phone] Kelli Salinas RN 11/29/2024 Orders Only [facility] Cardiology [address] [facility] [address] [place] [phone] Hermann Kimbrough MD Sick sinus syndrome (CMS/HCC) (HCC) (Primary Dx); Pacemaker; Atrial paroxysmal tachycardia (CMS/HCC) (HCC); Complete atrioventricular block (CMS/HCC) (HCC) 11/22/2024 3:52 PM INVESTIGATOR CLAIMS - 11/24/2024 4:21 PM INVESTIGATOR CLAIMS Hospital Encounter [facility] [address] [place] [address] Radu Limon DO Ogunremi, Olumide Omolulu, MD Onaghise, Jude, MD Hematochezia (Primary Dx) Discharge Disposition: Discharge to home or self care 11/22/2024 Ancillary Procedure [facility] Outside Films from Last 3 Months Immunizations Immunization Administration Dates Next Due Influenza, [...] on file Legal Sex Male 3:29 AM INVESTIGATOR CLAIMS Gender Identity Not on file Sexual Orientation Not on file Obstetrics History Last Filed Vital Signs Vital Sign Reading Time Taken Comments Blood Pressure 144/60 11/24/2024 7:27 AM INVESTIGATOR CLAIMS Pulse 65 11/24/2024 7:27 AM INVESTIGATOR CLAIMS Temperature 36.4 C (97.6 F) 11/24/2024 7:27 AM INVESTIGATOR CLAIMS Respiratory Rate 18 11/24/2024 7:27 AM INVESTIGATOR CLAIMS Oxygen Saturation 100% 11/24/2024 7:27 AM INVESTIGATOR CLAIMS Inhaled Oxygen Concentration - - Weight 75.2 kg (165 lb 12.6 oz) 11/23/2024 6:00 AM INVESTIGATOR CLAIMS Height 175.3 cm (5' 9 ) 11/22/2024 3:54 PM INVESTIGATOR CLAIMS Body Mass Index 24.48 11/22/2024 3:54 PM INVESTIGATOR CLAIMS Plan of Treatment Health Maintenance Due Date Last Done Comments Depression Screening 1942 DTaP/Tdap/Td Vaccine (1 - Tdap) 1953 Hepatitis B Screening 1960 Zoster Vaccine (1 of 2) 1992 Well Visit 65+ 2007 Pneumococcal vaccine 65+ (2 of 2 - PPSV23) 01/04/2017 11/09/2016 Influenza Vaccine (#1) 2024 9, 09/06/2018, 08/28/2018, Additional history exists Fall Risk Assessment 11/24/2025 11/24/2024 Abdominal Aortic Aneurysm (A AA) Screen Completed 11/23/2024 Medical Devices Implanted Type Area Performance Consultant Device Identifier Shelf Expiration Date Model / Serial / Lot 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 (Quantity not on file) Pacemaker Chest [employer] [id number] / [id number] / Procedures Procedure Name Priority Date/Time Associated Diagnosis Comments XR ABDOMEN AP 1 VIEW IP Routine 11/24/2024 8:34 AM INVESTIGATOR CLAIMS EGFR Routine 11/24/2024 7:21 AM INVESTIGATOR CLAIMS DIFFERENTIAL AUTO Routine 11/24/2024 7:2 1 AM INVESTIGATOR CLAIMS FOLATE Routine 11/24/2024 7:21 AM INVESTIGATOR CLAIMS VITAMIN B12 Routine 11/24/2024 7:21 AM INVESTIGATOR CLAIMS FERRITIN Routine 11/24/2024 7:21 AM INVESTIGATOR CLAIMS IRON PROFILE W/ IBC Routine 11/24/2024 7 :21 AM INVESTIGATOR CLAIMS USTEKINUMAB QUANTITATION WITH ANTIBODIES Routine 11/24/2024 7:21 AM INVESTIGATOR CLAIMS CRP (ACUTE PHASE) Routine 11/24/2024 7:2 1 AM INVESTIGATOR CLAIMS PROTIME-INR Routine 11/24/2024 7:21 AM INVESTIGATOR CLAIMS HEPATIC FUNCTION PANEL Routine 11/24/2024 7:21 AM INVESTIGATOR CLAIMS BASIC METABOLIC PANEL Routine 11/24/2024 7:21 AM INVESTIGATOR CLAIMS CBC WITH AUTO DIFFERENTIAL Routine 11/24/2024 7:[address] ABDOMEN PELVIS WO CONTRAST ED Urgent/IP Urgent 11/23/2024 4:07 PM INVESTIGATOR CLAIMS CALPROTECTIN, FECAL Routine 11/23/2024 3 :18 PM INVESTIGATOR CLAIMS XR ABDOMEN AP 1 VIEW ED Urgent/IP Urgent 11/23/2024 3:18 PM INVESTIGATOR CLAIMS XR ABDOMEN AP 1 VIEW ED Urgent/IP Urgent 11/23/2024 12:51 PM INVESTIGATOR CLAIMS EGFR Routine 11/23/2024 2:55 AM INVESTIGATOR CLAIMS DIFFERENTIAL AUTO Routine 11/23/2024 2:5 5 AM INVESTIGATOR CLAIMS BASIC METABOLIC PANEL Routine 11/23/2024 2:55 AM INVESTIGATOR CLAIMS CBC WITH AUTO DIFFERENTIAL Routine 11/23/2024 2:55 AM INVESTIGATOR CLAIMS EGFR Routine 11/22/2024 5:41 PM INVESTIGATOR CLAIMS DIFFERENTIAL AUTO Routine 11/22/2024 5:4 1 PM INVESTIGATOR CLAIMS BASIC METABOLIC PANEL Routine 11/22/2024 5:41 PM INVESTIGATOR CLAIMS CBC WITH AUTO DIFFERENTIAL Routine 11/22/2024 5:[address] BODY OUTSIDE REFERENCE Routine 11/22/2024 12:00 AM INVESTIGATOR CLAIMS from Last 3 Months Results * XR Abdomen 1 View AP (11/24/2024 8:34 AM INVESTIGATOR CLAIMS) Anatomical Region Laterality Modality Body, Abdomen N/A Computed Radiogr aphy 11/24/2024 9:10 AM INVESTIGATOR CLAIMS Impressions 11/24/2024 9:10 AM INVESTIGATOR CLAIMS FINDINGS/IMPRESSION: Enteric tube terminates in the distal stomach/1st portion of the duodenum region. Multiple dilated loops of small bowel suggestive of small bowel obstruction, similar to most recent prior. No acute fracture. Posterior fusion of L4-S1. Electronically signed by: Marko Olson II, D.O. Narrative 11/24/2024 9:10 AM INVESTIGATOR CLAIMS EXAMINATION: XR ABDOMEN AP 1 VIEW DATE: [...] Ustekinumab quatitation with antibodies (11/24/2024 7:21 AM INVESTIGATOR CLAIMS) Pathologist [facility] Ustekinumab level 2.1 mcg/mL [facility] ref Lab Comment: REFERENCE VALUE Lower limit of quantitation = 0.3 mcg/mL ADDITIONAL INFORMATION This test was developed and its performance characteristics determined by [facility] in a manner consistent with CLIA requirements. This test has not been cleared or approved by the U.S. Food and Drug Administration. Anti-Ustekinumab Ab <10 <10 A Units/mL [facility] Comment: Absence of detectable [id number]. ADDITIONAL INFORMATION This test was developed and its performance characteristics determined by [facility] in a manner consistent with CLIA requirements. This test has not been cleared or approved by the U.S. Food and Drug Administration. Test Performed by: [facility] [place] [address] Watch Dial Maker: Flash Prakash Ph.D.; CLIA# [id number] Blood 11/24/2024 7:21 AM INVESTIGATOR CLAIMS 11/24/2024 7:48 AM INVESTIGATOR CLAIMS Merle Gresham MD LAB BLOOD ORDERABLES Final Result [facility] [address] [address] Department [place] [address] [facility] Lab * eGFR (11/24/2024 7:21 AM INVESTIGATOR CLAIMS) [facility] eGFR 88 >=60 mL/min/1. 73 m2 Comment: [...] last reviewed 2021. Blood 11/24/2024 7:21 AM INVESTIGATOR CLAIMS 11/24/2024 7:51 AM INVESTIGATOR CLAIMS us Brianne Khanna NP LAB BLOOD ORDERABLES Final Result [facility] [address] [address] Department [place] [address] * (ABNORMAL) Differential, auto (11/24/2024 7:21 AM INVESTIGATOR CLAIMS) Pathologist [facility] Neutrophil abs 5.9 1.5 - 6.5 K/cumm Imm gran abs 0.0 0.0 - 0.1 K/cumm [facility] Lymphocyte abs 1.0 0.8 - 3.3 K/cumm [facility] Monocyte abs 1.2(H) 0.2 - 0.8 K/cumm [facility] Eosinophil abs 0.6(H) 0.0 - 0.5 K/cumm [facility] Basophil abs 0.0 0.0 - 0.1 K/cumm [facility] Neutrophil pct 67.4 % [facility] Comment: Interpretive Data Percent cell count [...] revised on 2018. Blood 11/24/2024 7:21 AM INVESTIGATOR CLAIMS 11/24/2024 7:52 AM INVESTIGATOR CLAIMS us Brianne Khanna NP LAB BLOOD ORDERABLES Final Result [facility] [address] [address] Department [place] [address] * (ABNORMAL) Iron profile w/ IBC (11/24/2024 7:21 AM INVESTIGATOR CLAIMS) Iron 36(L) 50 - 150 mcg/dl TIBC 288 250 - 400 mcg/dL [facility] Transferrin saturation 13(L) 20 - 50 % [facility] Blood 11/24/2024 7:21 AM INVESTIGATOR CLAIMS 11/24/2024 7:51 AM INVESTIGATOR CLAIMS us Merle Gresham MD LAB BLOOD ORDERABLES Final Result Performing Organization Address [facility]/ZIP Co de Phone Number [facility] [address] [address] Department of Laboratories [place], [place] [id number] * (ABNORMAL) CBC with auto differential (11/24/2024 7:21 AM INVESTIGATOR CLAIMS) WBC 8.7 3.8 - 9.9 K/cumm Hgb 13.7 13.0 - 17.5 g/dL [facility] Hct 43.4 38.9 - 50.3 % [facility] Plt 286 150 - 400 K/cumm [facility] MPV 10.0 9.1 - 12.3 fL [facility] RBC 4.51 4.30 - 5.80 M/cumm [facility] MCV 96.2 81.3 - 96.4 fL [facility] MCH 30.4 27.1 - 33.3 pg [facility] MCHC 31.6(L) 32.3 - 35.7 g/dL [facility] RDW CV 13.3 11.1 - 14.9 % [facility] RDW SD 47.3 35.7 - 48.1 fL [facility] NRBC abs 0.00 0.00 - 0.01 K/cumm [facility] Blood 11/24/2024 7:21 AM INVESTIGATOR CLAIMS 11/24/2024 7:52 AM INVESTIGATOR CLAIMS Brianne Khanna NP LAB BLOOD ORDERABLES Final Result Performing Organization Address [facility] Co de Phone Number [facility] [address] [address] Department [place] [address] * Protime-INR (11/24/2024 7:21 AM INVESTIGATOR CLAIMS) PT 12.1 9.7 - 13.0 sec INR 1.12 0.90 - 1.20 [facility] Comment: Interpretive data Oral anticoagulant therapeutic ranges: Venous thromboembolism prophylaxis or treatment: 2.0-3.0 CARDIOLOGY Standard range: 2.0-3.0 High-intensity range: 2.5-3.5 Refer to indication-specific guidelines for appropriate target ranges for prosthetic heart valve replacement. Current interpretive data was last revised on 2019. Blood 11/24/2024 7:21 AM INVESTIGATOR CLAIMS 11/24/2024 7:52 AM INVESTIGATOR CLAIMS us Merle Gresham MD LAB BLOOD ORDERABLES Final Result Performing Organization Address [facility] de Phone Number [facility] [address] [address] [facility] [employer] [place], [place] [id number] * (ABNORMAL) CRP (acute phase) (11/24/2024 7:21 AM INVESTIGATOR CLAIMS) CRP 32.1(H) <=10.0 mg/L Blood 11/24/2024 7:21 AM INVESTIGATOR CLAIMS 11/24/2024 7:51 AM INVESTIGATOR CLAIMS us Merle Gresham MD LAB BLOOD ORDERABLES Final Result Performing Organization Address [facility] Phone Number [facility] [address] [address] [facility] [place] [address] * Folate (11/24/2024 7:21 AM INVESTIGATOR CLAIMS) Folic acid >20.0 >=5.0 ng/mL Comment:Hemolysis present. R esults may be affected. Blood 11/24/2024 7:21 AM INVESTIGATOR CLAIMS 11/24/2024 7:51 AM INVESTIGATOR CLAIMS us Merle Gresham MD LAB BLOOD ORDERABLES Final Result Performing Organization Address [facility] de Phone Number [facility] [address] [address] [facility] [place] [address] * Ferritin (11/24/2024 7:21 AM INVESTIGATOR CLAIMS) Ferritin 95 30 - 400 ng/mL Blood 11/24/2024 7:21 AM INVESTIGATOR CLAIMS 11/24/2024 7:51 AM INVESTIGATOR CLAIMS us Merle Gresham MD LAB BLOOD ORDERABLES Final Result Performing Organization Address City/[facility]/ZIP Co de Phone Number [facility] [address] [address] Department [place] [address] * (ABNORMAL) Vitamin B12 (11/24/2024 7:21 AM INVESTIGATOR CLAIMS) Vitamin B12 >4,000(H) 230 - 1,250 pg/mL Blood 11/24/2024 7:21 AM INVESTIGATOR CLAIMS 11/24/2024 7:51 AM INVESTIGATOR CLAIMS Merle Gresham MD LAB BLOOD ORDERABLES Final Result Performing Organization Address [facility] de Phone Number [facility] [address] [address] [place] [address] * Hepatic function panel (11/24/2024 7:21 AM INVESTIGATOR CLAIMS) Bilirubin, total 0.4 0.1 - 1.2 mg/dL Bilirubin, direct 0.1 0.1 - 0.3 mg/dL [facility] Protein, pl 6.8 6.5 - 8.5 g/dL [facility] Albumin 3.5 3.5 - 5.0 g/dL [facility] Alk phos 116 40 - 130 Units/L [facility] ALT 22 7 - 55 Units/L [facility] AST 29 10 - 50 Units/L [facility] Blood 11/24/2024 7:21 AM INVESTIGATOR CLAIMS 11/24/2024 7:51 AM INVESTIGATOR CLAIMS Merle Gresham MD LAB BLOOD ORDERABLES Final Result Performing Organization Address [facility] Co de Phone Number [facility] [address] [address] Department [place] [address] * Basic metabolic panel (11/24/2024 7:21 AM INVESTIGATOR CLAIMS) Sodium 137 135 - 145 mmol/L Potassium, pl 3.4 3.3 - 4.9 mmol/L [facility] Chloride 101 97 - 110 mmol/L [facility] CO2 24 22 - 32 mmol/L [facility] Anion gap 12 2 - 15 mmol/L [facility] BUN 9 6 - 25 mg/dL [facility] Creatinine 0.80 0.80 - 1.30 mg/dL [facility] Glucose 102 70 - 199 mg/dL [facility] Comment: Interpretive Data Fasting glucose >/= [...] 2022. Calcium 8.9 8.5 - 10.3 mg/dL [facility] Blood 11/24/2024 7:21 AM INVESTIGATOR CLAIMS 11/24/2024 7:51 AM INVESTIGATOR CLAIMS Brianne Khanna NP LAB BLOOD ORDERABLES Final Result [facility] [address] [address] Department [place] [address] * CT Abdomen Pelvis WO Contrast (11/23/2024 4:07 PM INVESTIGATOR CLAIMS) Anatomical Region Laterality Modality Body N/A Computed Tomogra phy 11/23/2024 4:02 PM INVESTIGATOR CLAIMS Impressions 11/24/2024 5:49 AM INVESTIGATOR CLAIMS Circumferential rectal thickening, which can be seen with proctitis. Mild stranding along the descending colon could represent colitis. No evidence of bowel obstruction. Preliminary results were provided by the tele-radiologist at 6:02 PM on 11/23/2024. Electronically signed by: Jose Arevalo M.D. Narrative 11/24/2024 5:49 AM INVESTIGATOR CLAIMS EXAMINATION: Computed tomography of the abdomen and [...] * (ABNORMAL) Calprotectin, fecal (11/23/2024 3:18 PM INVESTIGATOR CLAIMS) Calprotectin, fecal 200(H) <50.0 (Normal) mcg/g [facility] Comment: Interpretation: Abnormal (>120 mcg/g) Test Performed by: [facility] [address] [place] [address] Watch Dial Maker: Flash Prakash Ph.D.; CLIA# [id number] Stool 11/23/2024 3:18 PM INVESTIGATOR CLAIMS 11/23/2024 3:25 PM INVESTIGATOR CLAIMS us Merle Gresham MD LAB BODY FLUIDS AND STOOLS ORDERABLES Final Result Performing Organization Address City/State/[facility] [place] [address] [facility] Department [place] [address] [facility] * XR Abdomen 1 View AP (11/23/2024 3:18 PM INVESTIGATOR CLAIMS) Anatomical Region Laterality Modality Body, Abdomen N/A Computed Radiogr aphy 11/23/2024 3:38 PM INVESTIGATOR CLAIMS Impressions 11/23/2024 3:38 PM INVESTIGATOR CLAIMS Findings as described above. Electronically signed by: Valentino Soto M.D. Narrative 11/23/2024 3:38 PM INVESTIGATOR CLAIMS EXAMINATION: XR ABDOMEN AP 1 VIEW HISTORY: [...] Abdomen 1 View AP (11/23/2024 12:51 PM INVESTIGATOR CLAIMS) Anatomical Region Laterality Modality Body, Abdomen N/A Computed Radiogr aphy 11/23/2024 1:04 PM INVESTIGATOR CLAIMS Impressions 11/23/2024 1:04 PM INVESTIGATOR CLAIMS FINDINGS/IMPRESSION: Multiple dilated loops of small bowel throughout the central abdomen suggestive of small bowel obstruction. Gaseous distention of the colon is also present. Ileus considered in the differential diagnosis. Moderate stool burden. 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 No acute fracture. Electronically signed by: Marko Olson II, D.O. Narrative 11/23/2024 1:04 PM INVESTIGATOR CLAIMS EXAMINATION: XR ABDOMEN AP 1 VIEW DATE: [...] Olson II, D.O. us Kendrick Lewis MD [facility] [place]ED[place] Final Result * eGFR (11/23/2024 2:55 AM INVESTIGATOR CLAIMS) eGFR 88 >=60 mL/min/1. 73 m2 Comment: [...] last reviewed 2021. Blood 11/23/2024 2:55 AM INVESTIGATOR CLAIMS 11/23/2024 3:23 AM INVESTIGATOR CLAIMS Brianne Khanna NP LAB BLOOD ORDERABLES Final Result [facility] [address] [address] Department [place] [address] * (ABNORMAL) Differential, auto (11/23/2024 2:55 AM INVESTIGATOR CLAIMS) Pathologist [facility] Neutrophil abs 7.1(H) 1.5 - 6.5 K/cumm Imm gran abs 0.1 0.0 - 0.1 K/cumm [facility] Lymphocyte abs 1.2 0.8 - 3.3 K/cumm [facility] Monocyte abs 1.2(H) 0.2 - 0.8 K/cumm [facility] Eosinophil abs 0.7(H) 0.0 - 0.5 K/cumm [facility] Basophil abs 0.0 0.0 - 0.1 K/cumm [facility] Neutrophil pct 68.8 % [facility] Comment: Interpretive Data Percent cell count reference ranges are not reported, since discordance with absolute values may lead to misinterpretation of CBC data. Current Interpretive Data was last revised on 2018. Imm gran pct 0.7 % [facility] Comment: Interpretive Data Percent cell count reference ranges are not reported, since discordance with absolute values may lead to misinterpretation of CBC data. Current Interpretive Data was last revised on 2018. Lymphocyte pct 11.4 % [facility] Comment: Interpretive Data Percent cell count reference ranges are not reported, since discordance with absolute values may lead to misinterpretation of CBC data. Current Interpretive Data was last revised on 2018. Monocyte pct 12.0 % [facility] Comment: Interpretive Data Percent cell count reference ranges are not reported, since discordance with absolute values may lead to misinterpretation of CBC data. Current Interpretive Data was last revised on 2018. Eosinophil pct 6.9 % [facility] Comment: Interpretive Data Percent cell count reference ranges are not reported, since discordance with absolute values may lead to misinterpretation of CBC data. Current Interpretive Data was last revised on 2018. Basophil pct 0.2 % [facility] Comment: Interpretive Data Percent cell count reference ranges are not reported, since discordance with absolute values may lead to misinterpretation of CBC data. Current Interpretive Data was last revised on 2018. Blood 11/23/2024 2:55 AM INVESTIGATOR CLAIMS 11/23/2024 3:23 AM INVESTIGATOR CLAIMS Brianne Khanna NP LAB BLOOD ORDERABLES Final Result [facility] [address] [address] Department [place] [address] * (ABNORMAL) CBC with auto differential (11/23/2024 2:55 AM INVESTIGATOR CLAIMS) WBC 10.3(H) 3.8 - 9.9 K/cumm Hgb 12.0(L) 13.0 - 17.5 g/dL [facility] Hct 37.8(L) 38.9 - 50.3 % [facility] Plt 311 150 - 400 K/cumm [facility] MPV 9.8 9.1 - 12.3 fL [facility] RBC 3.98(L) 4.30 - 5.80 M/cumm [facility] MCV 95.0 81.3 - 96.4 fL [facility] MCH 30.2 27.1 - 33.3 pg [facility] MCHC 31.7(L) 32.3 - 35.7 g/dL [facility] RDW CV 13.2 11.1 - 14.9 % [facility] RDW SD 46.0 35.7 - 48.1 fL [facility] NRBC abs 0.00 0.00 - 0.01 K/cumm [facility] Blood 11/23/2024 2:55 AM INVESTIGATOR CLAIMS 11/23/2024 3:23 AM INVESTIGATOR CLAIMS Brianne Khanna NP LAB BLOOD ORDERABLES Final Result [facility] [address] [address] Department [place] [address] * Basic metabolic panel (11/23/2024 2:55 AM INVESTIGATOR CLAIMS) Sodium 139 135 - 145 mmol/L Potassium, pl 3.9 3.3 - 4.9 mmol/L [facility] Chloride 103 97 - 110 mmol/L [facility] CO2 24 22 - 32 mmol/L [facility] Anion gap 12 2 - 15 mmol/L [facility] BUN 14 6 - 25 mg/dL [facility] Creatinine 0.81 0.80 - 1.30 mg/dL [facility] Glucose 95 70 - 199 mg/dL [facility] Comment: Interpretive Data Fasting glucose >/= [...] 2022. Calcium 8.9 8.5 - 10.3 mg/dL [facility] Blood 11/23/2024 2:55 AM INVESTIGATOR CLAIMS 11/23/2024 3:23 AM INVESTIGATOR CLAIMS Brianne Burgoszandra MOTHER HELPER LAB BLOOD ORDERABLES Final Result [facility] [address] [address] Department [place] [address] * eGFR (11/22/2024 5:41 PM INVESTIGATOR CLAIMS) eGFR >90 >=60 mL/min/1. 73 m2 Comment: [...] last reviewed 2021. Blood 11/22/2024 5:41 PM INVESTIGATOR CLAIMS 11/22/2024 5:50 PM INVESTIGATOR CLAIMS Brianne Rachel Khanna NP LAB BLOOD ORDERABLES Final Result Performing Organization Address City/[facility]/ZIP Co de Phone Number [facility] [address] [address] Department [place] [address] * (ABNORMAL) Differential, auto (11/22/2024 5:41 PM INVESTIGATOR CLAIMS) Neutrophil abs 7.8(H) 1.5 - 6.5 K/cumm Imm gran abs 0.1 0.0 - 0.1 K/cumm [facility] Lymphocyte abs 1.0 0.8 - 3.3 K/cumm [facility] Monocyte abs 1.2(H) 0.2 - 0.8 K/cumm [facility] Eosinophil abs 0.7(H) 0.0 - 0.5 K/cumm [facility] Basophil abs 0.0 0.0 - 0.1 K/cumm [facility] Neutrophil pct 72.0 % [facility] Comment: Interpretive Data Percent cell count reference ranges are not reported, since discordance with absolute values may lead to misinterpretation of CBC data. Current Interpretive Data was last revised on 2018. Imm gran pct 0.6 % [facility] Comment: Interpretive Data Percent cell count reference ranges are not reported, since discordance with absolute values may lead to misinterpretation of CBC data. Current Interpretive Data was last revised on 2018. Lymphocyte pct 9.3 % [facility] Comment: Interpretive Data Percent cell count reference ranges are not reported, since discordance with absolute values may lead to misinterpretation of CBC data. Current Interpretive Data was last revised on 2018. Monocyte pct 10.8 % [facility] Comment: Interpretive Data Percent cell count reference ranges are not reported, since discordance with absolute values may lead to misinterpretation of CBC data. Current Interpretive Data was last revised on 2018. Eosinophil pct 6.9 % [facility] Comment: Interpretive Data Percent cell count reference ranges are not reported, since discordance with absolute values may lead to misinterpretation of CBC data. Current Interpretive Data was last revised on 2018. Basophil pct 0.4 % [facility] Comment: Interpretive Data Percent cell count reference ranges are not reported, since discordance with absolute values may lead to misinterpretation of CBC data. Current Interpretive Data was last revised on 2018. Blood 11/22/2024 5:41 PM INVESTIGATOR CLAIMS 11/22/2024 5:50 PM INVESTIGATOR CLAIMS us Brianne Khanna NP LAB BLOOD ORDERABLES Final Result [facility] [address] [address] Department [place] [address] * (ABNORMAL) CBC with auto differential (11/22/2024 5:41 PM INVESTIGATOR CLAIMS) [facility] WBC 10.8(H) 3.8 - 9.9 K/cumm Hgb 13.2 13.0 - 17.5 g/dL [facility] Hct 41.2 38.9 - 50.3 % [facility] Plt 364 150 - 400 K/cumm [facility] MPV 9.6 9.1 - 12.3 fL [facility] RBC 4.36 4.30 - 5.80 M/cumm [facility] MCV 94.5 81.3 - 96.4 fL [facility] CH MCH 30.3 27.1 - 33.3 pg [facility] MCHC 32.0(L) 32.3 - 35.7 g/dL [facility] RDW CV 13.2 11.1 - 14.9 % [facility] RDW SD 46.1 35.7 - 48.1 fL [facility] NRBC abs 0.00 0.00 - 0.01 K/cumm [facility] Blood 11/22/2024 5:41 PM INVESTIGATOR CLAIMS 11/22/2024 5:50 PM INVESTIGATOR CLAIMS Brianne Khanna NP LAB BLOOD ORDERABLES Final Result [facility] [address] [address] Department [place] [address] * (ABNORMAL) Basic metabolic panel (11/22/2024 5:41 PM INVESTIGATOR CLAIMS) [facility] Sodium 138 135 - 145 mmol/L Potassium, pl 4.2 3.3 - 4.9 mmol/L [facility] Chloride 101 97 - 110 mmol/L [facility] CO2 23 22 - 32 mmol/L [facility] Anion gap 14 2 - 15 mmol/L [facility] BUN 11 6 - 25 mg/dL [facility] Creatinine 0.71(L) 0.80 - 1.30 mg/dL [facility] Glucose 104 70 - 199 mg/dL [facility] Comment: Interpretive Data Fasting glucose >/= [...] Calcium 9.2 8.5 - 10.3 mg/dL [facility] Blood 11/22/2024 5:41 PM INVESTIGATOR CLAIMS 11/22/2024 5:50 PM INVESTIGATOR CLAIMS us Brianne Khanna NP LAB BLOOD ORDERABLES Final Result Performing Organization Address City/[facility]/ZIP Co de Phone Number [facility] [address] [address] Department [place] [address] * CT Body Outside Reference (11/22/2024 12:00 AM INVESTIGATOR CLAIMS) Narrative [facility] - 12/05/2024 2:45 PM INVESTIGATOR CLAIMS This order has been auto-finalized and does not contain a result. us Not In File Miscellaneous IMG CT PROCEDURES Jackie l Result [facility] from Last 3 Months Insurance MEDICARE SOLUTIONS [facility] MEDICARE [facility] MEDICARE [facility] MEDICARE Advance Directives For more information, please contact: [phone] * Full Code (Latest Code Status on File) Date Activated Date Inactivated Comments 11/22/2024 4:29 PM 11/24/2024 8:21 PM Care Teams Quiller Machine Fixer Relationship Specialty Start Date End Date Wes Alves MD PCP - General Family Practice 07/03/24
--- OUTSIDE RECORDS SUMMARY | 2025-01-16 12:21 | XMS_ITS | Encounter Summary ---
Author Organization [facility] Address [address] [facility] [address] [place] [address] Care Team Providers Care Staff Occupational Therapist Name Role Phone Fiorella Barcenas MD Primary Care Provider + Fiorella Barcenas MD Primary Care Provider + Fiorella Barcenas MD Primary Care Provider + Rodrick Rincon MD Primary Care Provider [phone] Wes Alves MD Primary Care Provider [phone] Encounter Details Date Type Department Care Team (Late st Contact Info) Description 01/25/2017 Orders Only [facility] ProviderTyler MD [address] [place] [address] Social History Tobacco Use Types Packs/Day Years Used Date Smoking Tobacco: Former Alcohol Use Standard Drinks/Week Comments Yes 0 (1 standard drink = 0.6 oz pur e alcohol) Sex and Gender Information Value Date Recorded Sex Assigned at Not on file 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 Gender Identity Not on file Sexual Orientation [...] on filedocumented in this encounter Care Teams Staff Occupational Therapist Relationship Specialty Start Date End Date Fiorella Barcenas MD [address] [place] [address] PCP - General 02/24/17 01/29/18 Fiorella Barcenas MD [address] [place] [address] PCP - General 02/18/15 02/23/17 Fiorella Barcenas MD [address] [place] [address] PCP - General 01/30/18 02/05/18 Rodrick Rincon MD [address] [place] [address] PCP - General Internal Medicine 02/06/18 07/02/24 Wes Alves MD [address] [place] [address] PCP - General Family Practice 07/03/24 documented as of this encounter
--- OUTSIDE RECORDS SUMMARY | 2025-01-16 12:21 | XMS_ITS | Encounter Summary ---
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 Left message on machine. ICAL ASSOCIATE documented in this encounter Plan of Treatment Not on file documented as of this encounter Visit Diagnoses Not on filedocumented in this encounter Care Teams Account Services Representative Relationship Specialty Start Date End Date Wes Alves MD PCP - General Family Practice 07/03/24 documented as of this encounter
[2025-01-16 12:30] VITALS: BP 142/60; PULSE 68; RESP 18; TEMP 36.6; O2SAT 98
[2025-01-16 13:08] LABS: Add Urine Microscopic? YES; Appearance Urine Clear (Clear); Bacteria Urine None Seen /hpf; Basophils Percent Auto 0.1 % (0.2-1.2); Bilirubin Urine Negative (Negative); Blood Urine 1+ (Negative); Color Urine Yellow (Yellow); Eosinophils Percent Auto 0.4 % (0-4.4); Glucose Urine UA Negative (Negative); Hematocrit 43.2 % (42.0-52.0); Hemoglobin 14.1 g/dL (14.0-18.0); Immature Granulocyte Absolute 0.02 K/mm3 (0.00-0.031); Immature Granulocyte Percent A 0.3 % (0-0.5); Ketones Urine Negative (Negative); Leukocyte Esterase Ur Negative LEU/UL (Negative); Lymphocytes Absolute Auto 0.56 K/mm3 (0.9-3.2); Lymphocytes Percent Auto 8.1 % (18.3-44.2); Mean Corpuscular HGB Conc 32.6 g/dl (32-36); Mean Corpuscular Hemoglobin 30.3 pg (26-34); Mean Corpuscular Volume 92.9 fl (80-100); Mean Platelet Volume 10.3 fl (7.4-10.4); Monocytes Percent Auto 13.7 % (2.6-8.5); Neutrophils Absolute Auto 5.3 K/mm3 (1.3-6.7); Neutrophils Percent Auto 77.4 % (45.5-73.1); Nitrate Urine Negative (Negative); Platelet Count Result 243 k/mm3 (150-375); Protein Urine Negative (Negative); RBC Urine 0-2 /hpf (0-2); Red Blood Count 4.65 M/mm3 (4.6-6.20); Red Cell Distribution Width 13.7 % (11.5-14.5); Specific Grav Ur 1.006 (1.001-1.035); Squamous Epithelial Cell Urine None Seen /hpf (Few); Urobilinogen Urine 0.2 mg/dL (<2.0); WBC Urine 0-5 /hpf (0-3); White Blood Count 6.9 K/mm3 (4.5-10.0); pH Urine 5.5 (5.0-9.0)
[2025-01-16 13:16] LABS: Lactic Acid Reflex 1.2 mmol/L (0.7-2.0)
[2025-01-16 13:18] LABS: Alanine Aminotransferase 36 U/L (6-50); Albumin Level 4.7 g/dL (3.5-5.1); Alkaline Phosphatase 106 U/L (38-126); Anion Gap 12 mmol/L (4-12); Aspartate Amino Transferase 76 U/L (17-59); Bilirubin,Total 0.6 mg/dL (0.2-1.3); Blood Urea Nitrogen 22 mg/dL (9-20); Calcium 9.1 mg/dL (8.4-10.2); Carbon Dioxide 26 mmol/L (22-30); Chloride 96 mmol/L (98-107); Estimated CRCL calculation 58 ml/min; Estimated Glomerular Filt Rate > 60; Glucose 96 mg/dL (65-110); Potassium 3.6 mmol/L (3.4-5.0); Sodium 134 mmol/L (137-145)
[2025-01-16 13:20] LABS: INR 0.9; Prothrombin Time 12.5 Seconds (11.1-14.7)
[2025-01-16 13:21] LABS: Partial Thromboplastin Time 31.3 Seconds (22.3-36.8)
[2025-01-16 13:30] VITALS: BP 134/65; PULSE 66; RESP 16; TEMP 36.5; O2SAT 97
[2025-01-16 13:39] LABS: Influenza A QL RT-PCR Positive (Negative); Influenza B QL RT-PCR Negative (Negative); RSV RNA, RT-PCR Negative (Negative); SARS-CoV-2 RNA PCR Negative (Negative)
[2025-01-16 14:30] VITALS: BP 134/68; PULSE 70; RESP 18; TEMP 36.4; O2SAT 96
[2025-01-16 15:00] VITALS: BP 132/60; PULSE 68; RESP 16; TEMP 36.6; O2SAT 96
== END 2025-01-16 18:38 ==
PROVIDERS: Emergency Medicine; Emergency Provider Emergency Medicine; PCP Family Medicine
DX: J10.1 Influenza due to other identified influenza virus with other respiratory manifestations (principal); C61 Malignant neoplasm of prostate; K50.90 Crohn's disease, unspecified, without complications; I10 Essential (primary) hypertension; E78.5 Hyperlipidemia, unspecified; Z95.0 Presence of cardiac pacemaker; Z87.891 Personal history of nicotine dependence; Z20.822 Contact with and (suspected) exposure to COVID-19
CPT/HCPCS: 36415; 70450; 71046; 72131; 80053; 81001; 83605; 85025; 85610; 85730; 86140; 87040; 87637; 93005; 99284

== ENCOUNTER 2025-04-08 12:40 | Outpatient (CLI) | payer MEDICARE, SELFPAY ==
--- OUTSIDE RECORDS SUMMARY | 2025-04-08 12:44 | XMS_ITS | Encounter Summary ---
Author Organization [facility] Address [address] [facility] [address] [place] [address] Care Team Providers Care Maintenance Clerk Name Role Phone Fiorella Barcenas MD Primary Care Provider + Fiorella Barcenas MD Primary Care Provider + Fiorella Barcenas MD Primary Care Provider + Rodrick Rincon MD Primary Care Provider [phone] Wes Alves MD Primary Care Provider [phone] Encounter Details Date Type Department Care Team (Late st Contact Info) Description 01/25/2017 Orders Only [facility] ProviderTyler MD [address] [place] [address] Social History Tobacco Use Types Packs/Day Years Used Date Smoking Tobacco: Former Alcohol Use Standard Drinks/Week Comments Yes 0 (1 standard drink = 0.6 oz pur e alcohol) Sex and Gender Information Value Date Recorded Sex Assigned at Not on file 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 Gender Identity Not on file Sexual Orientation [...] on filedocumented in this encounter Care Teams Maintenance Clerk Relationship Specialty Start Date End Date Fiorella Barcenas MD [address] [place] [address] PCP - General 02/24/17 01/29/18 Fiorella Barcenas MD [address] [place] [address] PCP - General 02/18/15 02/23/17 Fiorella Barcenas MD [address] [place] [address] PCP - General 01/30/18 02/05/18 Rodrick Rincon MD [address] [address] PCP - General Internal Medicine 02/06/18 07/02/24 Wes Alves MD [address] [address] PCP - General Family Practice 07/03/24 documented as of this encounter
--- OUTSIDE RECORDS SUMMARY | 2025-04-08 12:44 | XMS_ITS | Clinical Summary ---
Author Organization [facility] Address [address] [place] [address] Care Team Providers Care Overlock Elastic Attacher Name Role Phone Wes Alves MD Primary Care Provider [phone] Allergies No known active allergies Medications multivitamin [...] Systolic murmur 12/17/2021 Pacemaker 02/06/2018 Crohn's disease 02/17/2017 Overview (04/21/2017): Crohn's disease with other complication, unspecified gastrointestinal tract location Atrial paroxysmal tachycardia (CMS/HCC) 02/18/20 17 Overview (04/21/2017): PAT (paroxysmal atrial tachycardia) Complete atrioventricular block (CMS/HCC) 2015 Overview (03/02/2017): Complete heart block History of malignant neoplasm of prostate 2015 Overview (03/02/2017): H/O prostate cancer Crohn's disease in remission 03/07/2016 Overview (03/02/2017): Crohn's disease in remission History [...] Encounters Date Type Department Care Team Description 04/01/2025 10:00 AM CDT Ancillary Procedure [facility] Cardiology [address] [place] [address] [place] [phone] Arrived 02/27/2025 Telephone [facility] [address] [place] [address] [place] [phone] Hermann Kimbrough MD 02/25/2025 Telephone [facility] [address] [place] [address] [place] [phone] Hermann Kimbrough MD 02/12/2025 Telephone [facility] [address] [facility] [address] [place] [phone] Hermann Kimbrough MD 02/04/2025 Telephone [facility] [address] [place] [phone] Hermann Kimbrough MD 01/16/2025 Telephone [facility] Cardiology [address] [facility] [address] [facility] [place] [phone] Hermann Kimbrough MD from Last 3 Months Immunizations Immunization Administration Dates Next Due Influenza, Ivone, IM (CHITO) 09/20/2016 Surgical History Surgery Date Site/Laterality Comments TRANSURETHRAL RESECTION OF PROSTATE SPINAL FUSION 10/27/2017 - 11/26/2017 Medical History Medical History Date Comments Hx Other Medical Crohn's disease Hx Other Medical Dyslipidemia Hx Other Medical ca prostate Hx Other Medical ? 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 Gender Identity Not on file Sexual Orientation Not on file Obstetrics History Last Filed Vital Signs Vital Sign Reading Time Taken Comments Blood Pressure 144/60 11/24/2024 7:27 AM OPERATIONS SUPERVISOR Pulse 65 11/24/2024 7:27 AM OPERATIONS SUPERVISOR Temperature 36.4 C (97.6 F) 11/24/2024 7:27 AM OPERATIONS SUPERVISOR Respiratory Rate 18 11/24/2024 7:27 AM OPERATIONS SUPERVISOR Oxygen Saturation 100% 11/24/2024 7:27 AM OPERATIONS SUPERVISOR Inhaled Oxygen Concentration - - Weight 75.2 kg (165 lb 12.6 oz) 11/23/2024 6:00 AM OPERATIONS SUPERVISOR Height 175.3 cm (5' 9 ) 11/22/2024 3:54 PM OPERATIONS SUPERVISOR Body Mass Index 24.48 11/22/2024 3:54 PM OPERATIONS SUPERVISOR Plan of Treatment Health Maintenance Due Date Last Done Comments Depression Screening 1942 DTaP/Tdap/Td Vaccine (1 - Tdap) 1953 Hepatitis B Screening 1960 Zoster Vaccine (1 of 2) 1992 Well Visit 65+ 2007 Pneumococcal vaccine 65+ (2 of 2 - PPSV23) 01/04/2017 11/09/2016 Influenza Vaccine (Season Ended) 2025 09/20/2019, 09/06/2018, 08/28/2018, Additional history exists Fall Risk Assessment 11/24/2025 11/24/2024 Abdominal Aortic Aneurysm (A AA) Screen Completed 11/23/2024 Medical Devices Implanted Type Area Deputy Bailiff Device Identifier Shelf Expiration Date Model / Serial / Lot 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 (Quantity not on file) Pacemaker Chest [employer]ITY [id number] / [id number] / Procedures Procedure Name Priority Date/Time Associated Diagnosis Comments CT ABDOMEN PELVIS WO CONTRAST ED Urgent/IP Urgent 11/23/2024 4:07 PM OPERATIONS SUPERVISOR from Last 3 Months or Most Recently Relevant to Health Maintenance Results * CT Abdomen Pelvis WO Contrast (11/23/2024 4:07 PM OPERATIONS SUPERVISOR) Anatomical Region Laterality Modality Body N/A Computed Tomogra phy 11/23/2024 4:02 PM OPERATIONS SUPERVISOR Impressions 11/24/2024 5:49 AM OPERATIONS SUPERVISOR Circumferential rectal thickening, which can be seen with proctitis. Mild stranding along the descending colon could represent colitis. No evidence of bowel obstruction. Preliminary results were provided by the tele-radiologist at 6:02 PM on 11/23/2024. Electronically signed by: Jose Arevalo M.D. Narrative 11/24/2024 5:49 AM OPERATIONS SUPERVISOR EXAMINATION: Computed tomography of the abdomen and [...] Lewis MD IMG CT PROCEDURES Final Result from Last 3 Months or Most Recently Relevant to Health Maintenance Insurance [facility] MEDICARE ADVANTAGE [facility] MEDICARE [facility] MEDICARE [employer] MEDICARE Advance Directives For more information, please contact: [phone] * Full Code (Latest Code Status on File) Date Activated Date Inactivated Comments 11/22/2024 4:29 PM 11/24/2024 8:21 PM Care Teams Overlock Elastic Attacher Relationship Specialty Start Date End Date Wes Alves MD PCP - General Family Practice 07/03/24
--- OUTSIDE RECORDS SUMMARY | 2025-04-08 12:44 | XMS_ITS | Data Portability ---
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 On exam he is [...] 3 levels above showed degenerative changes near gxip-pd-herc arthritis. I think this should best be [...] and continue with exercise and anti-inflammatory medication. [email or web address] Not available 05/09/2023 15:06:56 06/05/2023 06/05/2023 Patient [...] patient his risks benefits limitations and alternatives. [email or web address] Not available 06/05/2023 11:50:36 07/04/2023 07/04/2023 Patient [...] region. Follow-up on an in a month. [email or web address] Not available 07/04/2023 14:58:02 Plan of Treatment Reminders Order Date Submit Date Provider Last Modified By Organization Details Last Modified Time Details Appointments None recorded. Lab None recorded. Referral physical therapist referral - please contact patient to schedule 2022 023 [facility] [place] [facility] Wilfrido Samuels, [place], [address], 15:40:26 Procedures injection, hip, fluoro guidance (PROC) - Please inject patient in bilateral hip joints with 4 cc of 1% lidocaine and 80 mg of depo medrol 2022 023 [facility], [address], [place], [address], 13:36:23 Surgeries None recorded. Imaging XR, lumbar spine 2022 023 [email or web address] [facility] [place], [address], [place], [address], 15:07:32 Medication Orders prednisone 10 mg tablets in a dose pack 2022 023 [email or web address] [id number], [address] [facility], [place], [id number], 14:58:21 Patient TargetsNo targets recorded. Patient InstructionsNo instructions recorded. Reason for Referral Physical Therapist Referral for Low back pain please contact patient to schedule Referring Physician: Joselito Varela, Orthopedic Surgery, Encounter Date: 04/11/2023 Results Created Date Observation Date Name Description Value Unit Range Abnormal Flag Note LastModifiedBy Organization Detail LastModifiedTime 04/11/20 XR, lumba r spine No observ ation record ed. [email or web address] [facility] [place] [address], [place], [address], 04/11/2023 15:07:32 06/08/20 23 06/08/2023 injec tion, hip, fluor o rosa maria nce (PROC ) No observ ation record ed. [email or web address] [place] [address] [address], [place], [address], 06/08/2023 13:46:44 Result Notes None recorded. Problems Name Problem SNOMED Code Status Onset Date Resolution Date Notes Provider Name and Address Organization Details Recorded Time Disorder of shoulder 327306554 Active Not Available [facility] 3 14:12:07 Disorder of sacrum 70011352 Active Not Available [facility] 3 14:12:07 Acquired trigger finger 1517066 Active Not Available [facility] 3 14:12:07 Spinal stenosis of lumbar region 19302855 Active Not Available [facility] 3 14:12:07 Partial thickness rotator cuff tear 132683915 Active Not Available [facility] 3 14:12:07 Enthesopat hy of hip region 32284788 Active Not Available [facility] 3 14:12:07 Disorder of back 67238017 Active Not Available [facility] 3 14:12:07 Low back pain 241312652 Active 2022 RUBÉN Talley null, [facility] 3 14:17:47 Osteoarthr itis of bilateral hip joints 3029467417101 05 Active 2022 Joselito Varela MD [address] [place] [address], [address] , [facility] 3 15:07:02 Problem Notes None recorded. Procedures Surgical History Date Name Laterality Status Provider Name and Address Organization Details Recorded Time Spinal Fusion completed RUBÉN Talley [facility] 04/11/2023 14:17:10 Imaging Results Imaging Date Name Status LastModified by Organiz ation Details LastModified Time 04/11/2023 XR, lumbar spine completed [email or web address] [facility] [place] [address], [place], [address], 04/11/2023 15:07:32 06/08/2023 injection, hip, fluoro guidance (PROC) completed [address], [place], [address], 06/08/2023 13:46:44 Procedure Notes None recorded. Medical [...] Not Available N ot Available Fluzone High-Dose 7104-6573 (PF) 180 mcg/0.5 mL intramuscular syringe ADM 0.5ML IM UTD active Not Available Not Available No t Available Stelara 130 mg/26 mL intravenous solution active Not Available Not Available Not Available Fluzone High-Dose 5905-3563 (PF) 180 mcg/0.5 mL intramuscular syringe ADM 0.5ML IM UTD active Not Available Not Available No t Available Fluzone High-Dose 3611-8149 (PF) 180 mcg/0.5 mL intramuscular syringe ADM 0.5ML IM UTD active Not Available Not Available No t Available Vitals Date Recorded Body height Body mass index (BMI) Body weight Provider Name and Address Organization Details Last Updated DateTime 04/11/2023 175.26 cm 23.8 kg/m2 34868.37 g [employer]elyn [employer] 04/11/2023 14:15:52 Date Recorded Body height Body mass index (BMI) Body weight Provider Name and Address Organization Details Last Updated DateTime 05/09/2023 175.26 cm 23.9 kg/m2 62390.96 g Josselyn Romeo [employer] 05/09/2023 14:36:17 Date Recorded Body height Body mass index (BMI) Body weight Provider Name and Address Organization Details Last Updated DateTime 06/05/2023 175.26 cm 23.6 kg/m2 93124.78 g Josselyn Romeo [employer] 06/05/2023 09:23:38 Date Recorded Body height Body mass index (BMI) Body weight Provider Name and Address Organization Details Last Updated DateTime 07/04/2023 175.26 cm 23.6 kg/m2 64912.78 g Josselyn Romeo [employer] 07/04/2023 14:34:21 Social History None recorded. Functional Status None recorded. Mental Status None recorded. Family History Nothing Reported. Medical History No medical history recorded. Past Encounters Encounter ID Performer Location Encounter Start Date Encounter Closed Date Diagnosis/Indication Diagnosis SNOMED-CT Code Diagnosis ICD10 Code Diagnosis Note [id number] Joselito Varela MD [facility] [place] [address] [place] [address] 04/11/2023 13:57:46 04/11/2023 14:52:11 Low back pain 159426509 M54.50 [id number] Joselito Varela MD [facility] [place] [facility] [place] [address] [place] [address] 05/09/2023 14:33:48 05/09/2023 15:58:49 Low back pain 062294806 M54.50 Osteoarthr itis of bilateral hip joints 7309653861 21039 M16.0 [id number] Joselito Varela MD [facility] [place] [facility] [place] [address] [place] [address] 06/05/2023 09:21:25 06/05/2023 10:02:13 Low back pain 150621281 M54.50 Osteoarthr itis of bilateral hip joints 6724305477 58801 M16.0 [id number] Joselito Varela MD [facility] [place] [facility] [place] [address] [place] [address] 07/04/2023 14:30:40 07/04/2023 15:14:52 Osteoarthritis of bilateral hip joints 5817634093 07909 M16.0 Spinal spike nosis of lumbar region 61896324 M48.061 Health Concerns Section Related Observation LastModified by Organization Detai ls LastModified Time None Recorded Concern Status LastModified by Organization Details LastModified Time None Recorded Advance Directives Directive None Recorded Payers Encounter Date Sequence Insurance Name Policy Number Policy Montoya Covered Member ID Montoya Member ID Guarantor Name 04/11/2023 1 [employer] (MEDICARE REPLACEMENT PPO) [id number] Dinesh Saha [id number] Dinesh Saha 05/09/2023 1 [employer] (MEDICARE REPLACEMENT PPO) [id number] Dinesh Saha [id number] Dinesh Yifan 06/05/2023 1 [employer] (MEDICARE REPLACEMENT PPO) [id number] Dinesh Jonesncer [id number] Dinesh Yifan 07/04/2023 1 [employer] (MEDICARE REPLACEMENT PPO) [id number] Dinesh Jonesncer [id number] Dinesh Yifan Notes Date Note Type Note Provider Name [...] th Joselito Varela MD [address] [facility], [place], [address], [employer] 04/11/2023 15:08:35 05/09/2023 text/html Patient returns back and hip pain right. 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 Says the pain is little better but not 100%. Joselito Varela MD [address], [place], [address], [employer] 05/09/2023 15:07:43 06/05/2023 text/html Patient returns back and hip pain right. 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 Says the pain is little better but not 100%. Joselito Varela MD [address], [place], [address], [place] 06/05/2023 11:50:50 07/04/2023 text/html Patient returns back and hip pain right. 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 Says the pain is little better but not 100%. He has not reached his treatment goals. Joselito Varela MD [address] [place] [address], [place], [address], [place] [facility] 07/04/2023 14:59:20
--- OUTSIDE RECORDS SUMMARY | 2025-04-08 12:44 | XMS_ITS | Referral Summary ---
Author Organization [facility] Address [address] [place] [address] Care Team Providers Care Retail Sales Representative Name Role Phone Wes Alves MD Primary Care Provider [phone] Encounters Date Type Department Care Team Description 04/01/2025 10:00 AM CDT Ancillary Procedure [facility] Medical [facility] Cardiology [address] [place] [address] [place] [phone] Arrived 02/27/2025 Telephone [facility] Cardiology [address] [place] [address] [place] [address] Hermann Kimbrough MD 02/25/2025 Telephone [facility] Cardiology [address] [place] [address] Hermann Kimbrough MD 02/12/2025 Telephone [facility] Cardiology [address] [facility] [address] [place] [address] Hermann Kimbrough MD 02/04/2025 Telephone [facility] Medical [facility] Cardiology [address] [facility] [address] [place] [address] Hermann Kimbrough MD 01/16/2025 Telephone [facility] Cardiology [address] [place] [address] Hermann Kimbrough MD from Last 3 [...] on file Legal Sex Male 3:29 AM TRANSPORT COORDINATOR Gender Identity Not on file Sexual Orientation Not on file Last Filed Vital Signs Vital Sign Reading Time Taken Comments Blood Pressure 144/60 11/24/2024 7:27 AM TRANSPORT COORDINATOR Pulse 65 11/24/2024 7:27 AM TRANSPORT COORDINATOR Temperature 36.4 C (97.6 F) 11/24/2024 7:27 AM TRANSPORT COORDINATOR Respiratory Rate 18 11/24/2024 7:27 AM TRANSPORT COORDINATOR Oxygen Saturation 100% 11/24/2024 7:27 AM TRANSPORT COORDINATOR Inhaled Oxygen Concentration - - Weight 75.2 kg (165 lb 12.6 oz) 11/23/2024 6:00 AM TRANSPORT COORDINATOR Height 175.3 cm (5' 9 ) 11/22/2024 3:54 PM TRANSPORT COORDINATOR Body Mass Index 24.48 11/22/2024 3:54 PM TRANSPORT COORDINATOR Plan of Treatment Not on file Medical Devices Implanted Type Area Heel Sander Device Identifier Shelf Expiration Date Model / Serial / Lot 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 (Quantity not on file) Pacemaker Chest [employer] [id number] / [id number] / Procedures Procedure Name Priority Date/Time Associated Diagnosis Comments CT ABDOMEN PELVIS WO CONTRAST ED Urgent/IP Urgent 11/23/2024 4:07 PM TRANSPORT COORDINATOR from Last 3 Months or Most Recently Relevant to Health Maintenance Results * CT Abdomen Pelvis WO Contrast (11/23/2024 4:07 PM TRANSPORT COORDINATOR) Anatomical Region Laterality Modality Body N/A Computed Tomogra phy 11/23/2024 4:02 PM TRANSPORT COORDINATOR Impressions 11/24/2024 5:49 AM TRANSPORT COORDINATOR Circumferential rectal thickening, which can be seen with proctitis. Mild stranding along the descending colon could represent colitis. No evidence of bowel obstruction. Preliminary results were provided by the tele-radiologist at 6:02 PM on 11/23/2024. Electronically signed by: Jose Arevalo M.D. Narrative 11/24/2024 5:49 AM TRANSPORT COORDINATOR EXAMINATION: Computed tomography of the abdomen and [...] Most Recently Relevant to Health Maintenance Insurance [facility] MEDIC[facility] Address: [address] [place] [address] [facility] MED[facility] MED[facility] Advance Directives For more information, please contact: [phone] * Full Code (Latest Code Status on File) Date Activated Date Inactivated Comments 11/22/2024 4:29 PM 11/24/2024 8:21 PM Care Teams Retail Sales Representative Relationship Specialty Start Date End Date Wes Alves MD PCP - General Family Practice 07/03/24
--- NOTE | 2025-04-08 14:30 | NEURO_ITS ---
Impression: # Complains of numbness of hands. # Bilateral ulnar neuropathy across the elbows. # No Carpal Tunnel Syndrome. # Normal needle/EMG exam. Nerve Conduction Studies Anti Sensory Summary Table Stim Site NR Peak (ms) P-T Amp (µV) Site1 Site2 Delta-P (ms) Dist (cm) Nick (m/s) Left Median Anti Sensory (2-3nd Digit) Wrist 2.8 44.0 Wrist 2-3nd Digit 2.8 14.0 50 Wrist 2.9 19.4 Wrist 2-3nd Digit 2.8 14.0 50 Right Median Anti Sensory (2-3nd Digit) Wrist 3.2 19.4 Wrist 2-3nd Digit 3.2 14.0 44 Wrist 3.1 12.3 Wrist 2-3nd Digit 3.2 14.0 44 Left Radial Anti Sensory (Base 1st Digit) Wrist 2.9 18.2 Wrist Base 1st Digit 2.9 0.0 Right Radial Anti Sensory (Base 1st Digit) Wrist 2.4 12.1 Wrist Base 1st Digit 2.4 0.0 Left Ulnar Anti Sensory (5th Digit) Wrist 2.6 10.9 Wrist 5th Digit 2.6 14.0 54 Right Ulnar Anti Sensory (5th Digit) Wrist 2.6 30.2 Wrist 5th Digit 2.6 14.0 54 Motor Summary Table Stim Site NR Onset (ms) O-P Amp (mV) Site1 Site2 Delta-0 (ms) Dist (cm) Nick (m/s) Left Median Motor (Abd Poll Brev) Wrist 3.4 1.9 Elbow Wrist 5.4 31.0 57 Elbow 8.8 2.2 Right Median Motor (Abd Poll Brev) Wrist 3.0 4.2 Elbow Wrist 5.3 30.0 57 Elbow 8.3 5.7 Left Ulnar Motor (Abd Dig Minimi) Wrist 2.7 4.5 A Elbow Wrist 6.2 31.0 50 A Elbow 8.9 4.6 B Elbow Wrist 4.6 24.0 52 B Elbow 7.3 4.5 Right Ulnar Motor (Abd Dig Minimi) Wrist 2.7 4.3 A Elbow Wrist 5.9 30.0 51 A Elbow 8.6 3.7 B Elbow Wrist 4.2 21.0 50 B Elbow 6.9 4.3 F Wave Studies NR F-Lat (ms) L-R F-Lat (ms) Left Median (Mrkrs) (Abd Poll Brev) 28.81 0.51 Right Median (Mrkrs) (Abd Poll Brev) 28.31 0.51 Left Ulnar (Mrkrs) (Abd Dig Min) 30.22 0.54 Right Ulnar (Mrkrs) (Abd Dig Min) 29.68 0.54 EMG Side Muscle Nerve Root Ins Act Fibs Amp Dur Recrt Comment Right 1stDorInt Ulnar C8-T1 Nml Nml Nml Nml Nml Right Ext Indicis Radial (Post Int) C7-8 Nml Nml Nml Nml Nml Right Ext Digitorum Radial (Post Int) C7-8 Nml Nml Nml Nml Nml Right BrachioRad Radial C5-6 Nml Nml Nml Nml Nml Right PronatorTeres Median C6-7 Nml Nml Nml Nml Nml Right Abd Poll Brev Median C8-T1 Nml Nml Nml Nml Nml Right ABD Dig Min Ulnar C8-T1 Nml Nml Nml Nml Nml Right FlexPolLong Median (Ant Int) C7-8 Nml Nml Nml Nml Nml Right Abd Poll Long Radial (Post Int) C7-8 Nml Nml Nml Nml Nml Left 1stDorInt Ulnar C8-T1 Nml Nml Nml Nml Nml Left Ext Indicis Radial (Post Int) C7-8 Nml Nml Nml Nml Nml Left Ext Digitorum Radial (Post Int) C7-8 Nml Nml Nml Nml Nml Left BrachioRad Radial C5-6 Nml Nml Nml Nml Nml Left PronatorTeres Median C6-7 Nml Nml Nml Nml Nml Left Abd Poll Brev Median C8-T1 Nml Nml Nml Nml Nml Left ABD Dig Min Ulnar C8-T1 Nml Nml Nml Nml Nml Left FlexPolLong Median (Ant Int) C7-8 Nml Nml Nml Nml Nml Left Abd Poll Long Radial (Post Int) C7-8 Nml Nml Nml Nml Nml MTDD
== END 2025-04-08 12:41 | disposition home or self-care (01) ==
PROVIDERS: PCP Family Medicine; Visit Provider Family Medicine
DX: G56.23 Lesion of ulnar nerve, bilateral upper limbs (principal)
CPT/HCPCS: 95886; 95911